=== PATIENT | female | born 1955 | race Caucasian/White ===

== ENCOUNTER 2020-08-10 18:33 | Inpatient (IN) | payer MEDICARE, MEDICAID, SELFPAY ==
[2020-08-10] VITALS (18 sets, daily range): BP systolic 133–177; BP diastolic 58–113; PULSE 66–83; RESP 13–25; TEMP 36.7; O2SAT 94–100
--- NOTE | ~2020-08-10 | XR_ITS ---
EXAMINATION: XR tibia fibula LT 2V INDICATION: Left leg pain TECHNIQUE: Two views of the left tibia and fibula are obtained on four radiographs. COMPARISON: 12/06/2017 FINDINGS: There are changes of knee arthroplasty. Diffuse soft tissue edema is present throughout the leg. No soft tissue gas is identified. There is no fracture. Mild osteoarthritis is noted at the ank le. IMPRESSION: 1. Diffuse soft tissue edema without acute osseous abnormality. Reviewed, dictated and finalized at location A.
[2020-08-10 19:24] LABS: Basophils Percent Auto 0.3 % (0.2-1.2); Eosinophils Percent Auto 0.4 % (0-4.4); Hematocrit 36.6 % (37.0-47.0); Hemoglobin 11.1 g/dL (12.0-15.0); Immature Granulocyte Absolute 0.04 K/mm3 (0.00-0.031); Immature Granulocyte Percent A 0.4 % (0-0.5); Lymphocytes Percent Auto 13.2 % (18.3-44.2); Mean Corpuscular HGB Conc 30.3 g/dl (32-36); Mean Corpuscular Hemoglobin 25.5 pg (26-34); Mean Corpuscular Volume 84.1 fl (80-100); Mean Platelet Volume 10.1 fl (7.4-10.4); Monocytes Absolute Auto 0.9 K/mm3 (0.1-0.6); Monocytes Percent Auto 7.6 % (2.6-8.5); Neutrophils Absolute Auto 8.9 K/mm3 (1.3-6.7); Neutrophils Percent Auto 78.1 % (45.5-73.1); Platelet Count Result 311 k/mm3 (150-375); Red Blood Count 4.35 M/mm3 (4.2-5.4); White Blood Count 11.4 K/mm3 (4.5-10.0)
[2020-08-10 19:42] LABS: Alanine Aminotransferase 27 U/L (4-35); Albumin Level 4.2 g/dL (3.5-5.1); Alkaline Phosphatase 122 U/L (38-126); Aspartate Amino Transferase 31 U/L (14-36); Bilirubin,Total 0.4 mg/dL (0.2-1.3); Blood Urea Nitrogen 24 mg/dL (7-17); Calcium 9.6 mg/dL (8.4-10.2); Carbon Dioxide 28 mmol/L (22-30); Chloride 101 mmol/L (98-107); Estimated CRCL calculation 83 ml/min; Estimated Glomerular Filt Rate > 60; Glucose 124 mg/dL (65-105); Potassium 3.6 mmol/L (3.4-5.0)
[2020-08-10 19:46] LABS: Anion Gap 9 mmol/L (8-16); Sodium 138 mmol/L (137-145)
[2020-08-10 20:38] LABS: Lactic Acid Reflex 1.1 mmol/L (0.7-2.1)
--- NOTE | 2020-08-10 20:41 | ED.LOWEXIN ---
HPI - Extremity Injury (Lower) General Chief Complaint: Extremity Injury, Lower Stated Complaint: cellulitus to left leg Time Seen by Provider: 08/10/20 19:34 Source: RN notes reviewed History of Present Illness HPI Narrative: Patient presents emergency department from home for left leg redness. States that since began 2 days ago with a small weeping wound that progressively is worsened. States that the area is tender to palpation denies any direct trauma or injury. Denies any pain of the ankle or knee with orange motion of both and has been able to walk on the leg. She has any fevers or chills numbness or tingling or any other symptoms states no previous evaluation Related Data Allergies Allergy/AdvReac Type Severity Reaction Status Date / Time No Known Allergies Allergy Verified 08/10/20 18:48 Review of Systems Review of Systems: Narrative: Gen.: Denies fevers or chills ENT: Denies congestion Respiratory: Denies shortness of breath or cough CV: Denies chest pain GI: Denies abdominal pain nausea, emesis or diarrhea Musculoskeletal: Denies back pain or muscle pain Neuro: Denies numbness, tingling, weakness or focal weakness Skin: See HPI Except as documented, all other systems reviewed and negative PMFSH Past Medical History Medical History (Updated 08/10/20 @ 21:36 by Vladimir Reese DO) Patient denies significant medical history Social History Social History (Updated 08/10/20 @ 20:42 by Vladimir Reese DO) Smoking status: Never smoker Exam Narrative: Exam Narrative: APPEARANCE: No acute distress, nontoxic, resting in bed EYES: EOMI HEENT: Normocephalic, atraumatic, OMM RESPIRATORY: No respiratory distress Clear to auscultation bilaterally with no rhonchi wheezing or rales. CARDIOVASCULAR: Regular rate and rhythm without murmurs rubs or gallops. ABDOMINAL: Soft, nontender, nondistended, no rebound or guarding MUSCULOSKELETAl: Moves all extremities. No clubbing, cyanosis or edema. No tenderness of the left knee or ankle with full range of motion of both NEURO: Awake and alert. Following commands, speech normal, no focal deficits SKIN:: Warm, dry. Erythema of the left anterior and lateral lower leg from mid mckenzie down to just proximal to the ankle no involvement of the ankle it is non-circumferential there is a small blistered wound with mild clear drainage PSYCHIATRIC: Normal affect/mood, Course Course Emergency Course: Discussed with Dr. Flores presentation work-up. Agrees with admission at this time Discussed with patient and family results of workup and diagnosis. Discussed need for admission. Patient and family understand and agree to current treatment plan Vital Signs Vital signs: Vital Signs Temperature 98.1 F 08/10/20 18:44 Pulse Rate 82 08/10/20 18:44 Respiratory Rate 18 08/10/20 18:44 Blood Pressure 177/62 H 08/10/20 18:44 Pulse Oximetry 98 08/10/20 18:44 Temperature 98.1 F 08/10/20 18:44 Pulse Rate 77 08/10/20 20:03 Respiratory Rate 20 08/10/20 20:03 Blood Pressure 167/68 H 08/10/20 20:03 Pulse Oximetry 96 08/10/20 20:03 MDM - Extremity Injury (Lower) Lab Data Result diagrams: 08/10/20 18:52 08/10/20 18:52 Labs: Lab Results 08/10/20 08/10/20 08/10/20 Range/Units 18:52 18:52 20:03 WBC 11.4 H (4.5-10.0) K/mm3 RBC 4.35 (4.2-5.4) M/mm3 Hgb 11.1 L (12.0-15.0) g/dL Hct 36.6 L (37.0-47.0) % MCV 84.1 (80-100) fl MCH 25.5 L (26-34) pg MCHC 30.3 L (32-36) g/dl RDW 16.0 H (11.5-14.5) % Plt Count 311 (150-375) k/mm3 MPV 10.1 (7.4-10.4) fl Immature Gran % (Auto) 0.4 (0-0.5) % Neut % (Auto) 78.1 H (45.5-73.1) % Lymph % (Auto) 13.2 L (18.3-44.2) % [place] % (Auto) 7.6 (2.6-8.5) % Eos % (Auto) 0.4 (0-4.4) % Baso % (Auto) 0.3 (0.2-1.2) % Lymph # (Auto) 1.50 (0.9-3.2) K/mm3 [place] # (Auto) 0.9 H (0.1-0.6) K/mm3 Eos # (Auto) 0.0 (0-0.3) K
--- NOTE | 2020-08-10 22:18 | PM.IMHP ---
H&P: HPI History of Present Illness Date/Time: 08/10/20 22:18 Chief complaint: Left lower extremity cellulitis Narrative: This is a 64 year old obese female with known HTN who presented to the hospital with a complaint of worsening left lower extremity redness and drainage for the past two days. The patient has a long standing history of lower extremity swelling and rash although now her LLE has a deeper red rash, tender, and draining clear fluid. She denies any recent trauma to her LE. The patient denies any previous history of MRSA that she knows of. Tonight she denies any associated symptoms of fever, nausea, vomiting, chest pain, palpitations, abdominal pain, dysuria, hematuria, diarrhea or rectal bleeding. The patient was evaluated in the ER tonight and routine labs were virtually unremarkable. The patient was started on IV antibiotics and we have been asked to admit her to the hospital for further care. No other complaints. Review of Systems Review of Systems: All systems reviewed & are unremarkable except as noted in HPI and below PMFSH Past Medical History Medical History HTN (hypertension) with goal to be determined Patient denies significant medical history Family History Family History Mother Cancer Father Cancer Social History Social History Smoking status: Never smoker Alcohol intake: never Substance use: never Spiritual care concerns: No Meds Home Medications and Allergies Home Medications Medication Instructions Recorded Confirmed Type atenolol 50 mg PO DAILY 08/11/20 08/11/20 History lisinopril-hydrochlorothiazide 1 tablet PO BID 08/11/20 08/11/20 History lorazepam 0.5 mg PO TID 08/11/20 08/11/20 History ropinirole 4 mg PO HS 08/11/20 08/11/20 History tramadol 50 mg PO Q6H PRN 08/11/20 08/11/20 History Allergies Allergy/AdvReac Type Severity Reaction Status Date / Time No Known Allergies Allergy Verified 08/10/20 18:48 Vital Signs Vital Signs - 24 hr 08/10/20 18:44 08/10/20 20:03 Temperature 36.7 C Pulse Rate 82 77 Respiratory Rate 18 20 Blood Pressure 177/62 H 167/68 H Pulse Oximetry 98 96 Exam Const: General: cooperative, no acute distress, alert, awake, ill appearing chronically, tired appearing and uncomfortable Nutritional Appearance: obese Orientation/consciousness: patient oriented x3 HENMT: Head: normal to inspection General nose exam: Normal external nose present Face and sinus: normal facial exam Mouth: Yes Normal oral and palatal mucosa present and Yes oropharynx normal Eyes: Pupils: Equal, round and reactive pupils present EOM: EOMs intact bilaterally Neck: Neck: supple and no JVD Thyroid: thyroid normal Lymphatic: lymphadenopathy not noted Resp: Effort & Inspection: normal respiratory effort Auscultation: clear to auscultation bilaterally Cardio: Rate: regular rate Rhythm: regular rhythm Heart sounds: no murmurs GI: Inspection: normal to inspection Auscultation: normal bowel sounds Skin: General skin exam: other (Deep red/violacious rash Left side worse than right++ ) Other: Skin opening of LLE draining clear fluid++ Neuro: General: patient oriented x3 Cranial nerves: Yes CN's II-XII intact bilaterally and Yes Equal, round and reactive pupils present Speech: normal speech Motor exam (neuro): 5/5 motor strength present throughout Sensory Exam: normal sensation Extrem: General: normal to inspection and no edema Psych: Mental Status: mental status grossly normal Affect: normal affect H&P: Results Labs Labs: Short CBC 08/10/20 Range/Units 18:52 WBC 11.4 H (4.5-10.0) K/mm3 Hgb 11.1 L (12.0-15.0) g/dL Hct 36.6 L (37.0-47.0) % Plt Count 311 (150-375) k/mm3 [facility] 08/10/20 18:52 Sodium 138 Potassium 3.6 Chloride 101 [place] Joe
--- NOTE | 2020-08-10 23:24 | PC.NURSE ---
pt placed on bedpan, unable to void at this time.
--- NOTE | 2020-08-10 23:49 | ADMGEN ---
This patient, Daria Pickett, was admitted to Medical Room 250-. Patient/family oriented to hospital policies and general routines including ID bracelet, bed and alarms, visiting hours, pain management, procedures, bathroom and other care routines, personal items, smoking policy, room service/diet, and visiting hours. Valuables list has been completed. Information on how to activate the Rapid Response Team has been discussed. Patient/Family are encouraged to report perceived risks to care and to ask questions if they do not understand what they are told or what they should do.
[2020-08-11 00:31] VITALS: BP 143/59; PULSE 69; RESP 16; TEMP 36.8; O2SAT 100
[2020-08-11 06:00] VITALS: BP 127/52; PULSE 68; RESP 16; TEMP 36.8; O2SAT 99
[2020-08-11 06:08] LABS: Basophils Percent Auto 0.1 % (0.2-1.2); Hematocrit 32.9 % (37.0-47.0); Hemoglobin 10.2 g/dL (12.0-15.0); Immature Granulocyte Absolute 0.07 K/mm3 (0.00-0.031); Immature Granulocyte Percent A 0.5 % (0-0.5); Lymphocytes Absolute Auto 0.99 K/mm3 (0.9-3.2); Lymphocytes Percent Auto 7.2 % (18.3-44.2); Mean Corpuscular Hemoglobin 25.4 pg (26-34); Mean Corpuscular Volume 81.8 fl (80-100); Mean Platelet Volume 10.2 fl (7.4-10.4); Monocytes Absolute Auto 0.9 K/mm3 (0.1-0.6); Monocytes Percent Auto 6.2 % (2.6-8.5); Neutrophils Absolute Auto 11.8 K/mm3 (1.3-6.7); Platelet Count Result 245 k/mm3 (150-375); Red Blood Count 4.02 M/mm3 (4.2-5.4); Red Cell Distribution Width 15.9 % (11.5-14.5); White Blood Count 13.8 K/mm3 (4.5-10.0)
[2020-08-11 06:27] LABS: Anion Gap 5 mmol/L (8-16); Blood Urea Nitrogen 16 mg/dL (7-17); Calcium 8.8 mg/dL (8.4-10.2); Carbon Dioxide 28 mmol/L (22-30); Chloride 99 mmol/L (98-107); Estimated CRCL calculation 98 ml/min; Estimated Glomerular Filt Rate > 60; Glucose 129 mg/dL (65-105); Potassium 3.8 mmol/L (3.4-5.0); Sodium 132 mmol/L (137-145)
[2020-08-11 06:45] LABS: Add Urine Microscopic? YES; Appearance Urine Clear (Clear); Bacteria Urine Trace /hpf; Bilirubin Urine Negative (Negative); Blood Urine Negative (Negative); Color Urine Yellow (Yellow); Glucose Urine UA Negative (Negative); Ketones Urine Negative (Negative); Leukocyte Esterase Ur Trace LEU/UL (Negative); Mucus Urine Rare /lpf; Nitrate Urine Negative (Negative); Protein Urine Negative (Negative); RBC Urine 0-2 /hpf (0-2); Specific Grav Ur 1.017 (1.001-1.035); Squamous Epithelial Cell Urine Occasional /hpf (Few); Urobilinogen Urine Negative mg/dL (<2.0)
[2020-08-11 10:26] VITALS: PULSE 68
[2020-08-11] MEDS: lisinopriL 20 MG TABLET PO ×2 (10:26→17:13)
[2020-08-11] MEDS: atenoloL 50 MG TABLET PO (10:26)
[2020-08-11] MEDS: LORazepam (*CRX) 0.5 MG TABLET PO (10:27)
[2020-08-11] MEDS: hydroCHLOROthiazide 12.5 MG CAPSULE PO ×2 (10:27→17:13)
[2020-08-11] MEDS: ENOXAPARIN 40 MG/0.4 ML SYRINGE SUB-Q (10:27)
--- NOTE | 2020-08-11 10:39 | PM.IMPN ---
Progress Note: A&P Assessment and Plan (1) Cellulitis of left leg: Code(s): L03.116 - Cellulitis of left lower limb Status: Acute Assessment and Plan: Continue IV Ancef and analgesics PRN. Seen by press writer. Blood cultures pending. (2) Hypertension: Qualifiers: Hypertension type: unspecified Qualified Code(s): I10 - Essential (primary) hypertension Code(s): I10 - Essential (primary) hypertension Status: Chronic Assessment and Plan: Blood pressures reviewed and are variable. Last BP on the lower end this afternoon. Continue her home lisinopril. Monitor BP and adjust treatment as needed. (3) Normocytic anemia: Code(s): D64.9 - Anemia, unspecified Status: Acute Assessment and Plan: Hgb low but stable, unsure of baseline. No evidence of acute blood loss. Monitor H/H, transfuse prn. Iron studies with AM labs. Subjective Date/time seen: 08/11/20 10:30 Interval history: Ms. Pickett is a 64yo F admitted for left lower leg cellulitis. She describes she is tired and has discomfort to left lower leg, otherwise offers no complaints. She denies any chest pain, shortness of breath, or palpitations. She has tolerated oral intake without nausea or vomiting. Review of Systems Review of Systems: Narrative: Twelve systems were reviewed with pertinent positives and negatives as per HPI. Exam Narrative: Exam Narrative: General: Female resting comfortably in semi-Spence's position in bed in no acute distress. HEENT: Normocephalic, EOMI, oral mucosa tacky. Cardiovascular: Rate and rhythm are regular. Respiratory: Lungs clear to auscultation all cast. Non-labored breathing. Tolerating room air. Abdomen: Protuberant soft, non-tender, bowel sounds present. Extremities: Peripheral pulses intact. [place] edema bilateral lower extremities below the knee. Some mild chronic discoloration to right lower extremity below the knee with skin wrinkling. Left lower extremity below the knee with pitting edema, erythema, warm and painful to touch. Small <1cm ulcer anterior left mckenzie weeping serous drainage. Neuro: No focal neurological deficits. Speech is clear. Objective Data Vital Signs Vital Signs: Last Vital Signs Temp 98.5 F 08/11/20 14:00 Pulse 99 08/11/20 14:00 Resp 20 08/11/20 14:00 BP 103/57 L 08/11/20 14:00 Pulse Ox 97 08/11/20 14:00 Intake/Output Intake/Output: Intake & Output 08/08/20 08/09/20 08/10/20 08/11/20 23:59 23:59 23:59 23:59 Intake Total 50 530 Output Total 1250 Balance 50 -720 Meds/Results Medications: Active Medications Generic Name Dose Route Start Last Admin Trade Name Freq PRN Reason Stop Dose Admin Acetaminophen 650 mg 08/11/20 07:26 Tylenol Tablet PO Q4H PRN Pain Rated 5 or Less Atenolol 50 mg 08/11/20 09:00 08/11/20 10:26 Tenormin PO 50 mg DAILY LISANDRA Administration Enoxaparin Sodium 40 mg 08/11/20 09:00 08/11/20 10:27 Lovenox SUB-Q 40 mg DAILY LISANDRA Administration Hydrochlorothiazide 12.5 mg 08/11/20 09:00 08/11/20 10:27 Hydrochlorothiazide PO 09/10/20 09:01 12.5 mg BID LISANDRA Administration Cefazolin Sodium 1 gm in 50 mls @ 100 mls/hr 08/11/20 06:00 08/11/20 06:34 Ancef 1 Gm/D5w 50 Ml Pm IVPB 100 mls/hr Q8H LISANDRA Administration Lisinopril 20 mg 08/11/20 09:00 08/11/20 10:26 Prinivil PO 09/10/20 09:01 20 mg BID LISANDRA Administration Lorazepam 0.5 mg 08/11/20 09:00 08/11/20 10:27 Ativan Tablet PO 0.5 mg TID LISANDRA Administration Ondansetron HCl 4 mg 08/11/20 07:26 Zofran Inj IV PUSH Q6H PRN Nausea And Vomiting Ropinirole HCl 4 mg 08/11/20 21:00 Requip PO HS LISANDRA Tramadol HCl 50 mg 08/11/20 07:26 Ultram PO Q6H PRN Pain Rated 6 or Greater
[2020-08-11 14:00] VITALS: BP 103/57; PULSE 99; RESP 20; TEMP 36.9; O2SAT 97
[2020-08-11 14:24] VITALS: BMI 37.4
[2020-08-11 20:32] VITALS: BP 102/40; PULSE 42; RESP 16; TEMP 37.1; O2SAT 98
--- NOTE | 2020-08-11 20:43 | ECG_ITS ---
Measurements Intervals [place] Rate: 42 P: 27 WI: 147 QRS: 9 QRSD: 84 T: 18 QT: 460 QTc: 387 Interpretive Statements SINUS BRADYCARDIA VOLTAGE CRITERIA FOR LVH ABNORMAL ECG Electronically Signed On 08-11-2020 21:09:31 CDT by Jesse Wong D.O.
[2020-08-11] MEDS: rOPINIRole HCL 1 MG TABLET 4 MG PO (21:36)
[2020-08-12] VITALS (7 sets, daily range): BP systolic 110–125; BP diastolic 41–47; PULSE 38–45; RESP 14–18; TEMP 36.4–36.8; O2SAT 95–99
[2020-08-12 06:14] LABS: Basophils Percent Auto 0.2 % (0.2-1.2); Eosinophils Percent Auto 0.4 % (0-4.4); Hematocrit 30.7 % (37.0-47.0); Hemoglobin 9.3 g/dL (12.0-15.0); Immature Granulocyte Absolute 0.04 K/mm3 (0.00-0.031); Immature Granulocyte Percent A 0.4 % (0-0.5); Lymphocytes Absolute Auto 1.26 K/mm3 (0.9-3.2); Lymphocytes Percent Auto 13.2 % (18.3-44.2); Mean Corpuscular HGB Conc 30.3 g/dl (32-36); Mean Corpuscular Hemoglobin 25.4 pg (26-34); Mean Corpuscular Volume 83.9 fl (80-100); Mean Platelet Volume 10.2 fl (7.4-10.4); Monocytes Absolute Auto 0.9 K/mm3 (0.1-0.6); Monocytes Percent Auto 9.9 % (2.6-8.5); Neutrophils Absolute Auto 7.2 K/mm3 (1.3-6.7); Neutrophils Percent Auto 75.9 % (45.5-73.1); Platelet Count Result 222 k/mm3 (150-375); Red Blood Count 3.66 M/mm3 (4.2-5.4); Red Cell Distribution Width 16.3 % (11.5-14.5); White Blood Count 9.5 K/mm3 (4.5-10.0)
[2020-08-12 06:28] LABS: Anion Gap 3 mmol/L (8-16); Blood Urea Nitrogen 20 mg/dL (7-17); Carbon Dioxide 31 mmol/L (22-30); Chloride 99 mmol/L (98-107); Estimated CRCL calculation 84 ml/min; Estimated Glomerular Filt Rate > 60; Glucose 112 mg/dL (65-105); Magnesium 2.3 mg/dL (1.6-2.3); Potassium 3.6 mmol/L (3.4-5.0); Sodium 133 mmol/L (137-145)
[2020-08-12] MEDS: ENOXAPARIN 40 MG/0.4 ML SYRINGE SUB-Q (08:30)
[2020-08-12] MEDS: lisinopriL 20 MG TABLET PO ×2 (08:51→17:55)
[2020-08-12] MEDS: hydroCHLOROthiazide 12.5 MG CAPSULE PO ×2 (08:51→17:55)
--- NOTE | 2020-08-12 11:41 | PM.IMPN ---
Progress Note: A&P Assessment and Plan (1) Bacteremia: Code(s): R78.81 - Bacteremia Status: Acute Assessment and Plan: ----- This morning her blood cultures were growing gram-negative bacilli with worsening erythema and Imipenem was added to her cefazolin. since that time, her cultures have come back pasteurella beta lactamase negative. At this time I am going to continue the imipenem until Infectious Disease sees her. I appreciate their further recommendations. I suspect this is secondary from her cellulitis. She has dogs at home but no history of and will bites. No signs of osteomyelitis on exam or x-ray (2) Cellulitis of left leg: Code(s): L03.116 - Cellulitis of left lower limb Status: Acute Assessment and Plan: ----- See above, continue therapy. (3) Hypertension: Qualifiers: Hypertension type: unspecified Qualified Code(s): I10 - Essential (primary) hypertension Code(s): I10 - Essential (primary) hypertension Status: Chronic Assessment and Plan: ----- last blood pressure 110/47. Atenolol on hold (4) Normocytic anemia: Code(s): D64.9 - Anemia, unspecified Status: Acute Assessment and Plan: ----- acute on chronic, will add anemia labs (5) Bradycardia: Code(s): R00.1 - Bradycardia, unspecified Status: Acute Assessment and Plan: ----- new starting last night. The patient had complained of dry heaving so she could have vagal down. EKG reviewed which showed sinus bradycardia. Will place on telemetry. She has no chest pain, syncope or presyncopal symptoms. She is on atenolol 50 mg which I confirmed with the pharmacy. We will place this on hold and monitor on tele. Additional Plan Time Spent With Patient Time with patient: 25 - 35 minutes Subjective Date/time seen: 08/12/20 11:41 Interval history: Pt is a 64 y/o female here for cellulitis found to have bacteremia who was seen today. patient states she feels crappy and has a decreased appetite and keeps dry heaving. She has no rigors or fevers that she knows of. She says that her heart rate has been low and she has never been told this has happened before. She denies presyncopal symptoms, syncope, chest pain, dizziness, lightheadedness or arm numbness/ tingling. She has been having regular bowel movements but feels a little constipated. she states she has a history of cellulitis but no trauma or surgery to the leg.She has 3 dogs at home and has not gotten bit by any animal. Review of Systems Review of Systems: All systems reviewed & are unremarkable except as noted in HPI and below Exam Narrative: Exam Narrative: General: Well developed well nourished patient Resting comfortably in bed in NAD HEENT: normocephalic Neck: supple Neuro: Alert and oriented x4 CV: Bradycardic Resp:CTA Abd: Soft, non distended. No pain to palpation. Positive bowel sounds Extremities: left leg with significant erythema and puncture like wound draining serous fluid. The erythema appears to have worsened and is father upper leg than the demarcated lines. pulses and sensitivity intact. Objective Data Vital Signs Vital Signs: Vital Signs - 24 hr 08/11/20 14:00 08/11/20 20:32 08/12/20 06:00 Temperature 98.5 F 98.8 F 98.3 F Pulse Rate 99 42 L 38 L Respiratory Rate 20 16 16 Blood Pressure 103/57 L 102/40 L 110/47 L Pulse Oximetry 97 98 98 Intake/Output Intake/Output: Intake & Output 08/09/20 08/10/20 08/11/20 08/12/20 23:59 23:59 23:59 23:59 Intake Total 50 1660 300 Output Total 1650 500 Balance 50 10 -200 Meds/Results Medications: Active Medications Generic Name Dose Route Start Last Admin Trade Name Jacobq PRN Reason Stop Dose Admin Acetaminophen 650 mg 08/11/20 07:26 Tylenol Tablet PO Q4H PRN Pain Rated 5 or Less Atenolol 50 mg 08/11/20 09:00 08/11/20 10:26 Tenormin PO 50
[2020-08-13] VITALS (8 sets, daily range): BP systolic 117–130; BP diastolic 36–50; PULSE 40–62; RESP 16–22; TEMP 36.3–36.7; O2SAT 95–100
[2020-08-13 06:33] LABS: Basophils Percent Auto 0.1 % (0.2-1.2); Eosinophils Absolute Auto 0.1 K/mm3 (0-0.3); Eosinophils Percent Auto 1.1 % (0-4.4); Hematocrit 31.5 % (37.0-47.0); Hemoglobin 9.7 g/dL (12.0-15.0); Immature Granulocyte Absolute 0.03 K/mm3 (0.00-0.031); Immature Granulocyte Percent A 0.4 % (0-0.5); Lymphocytes Absolute Auto 1.52 K/mm3 (0.9-3.2); Lymphocytes Percent Auto 21.7 % (18.3-44.2); Mean Corpuscular HGB Conc 30.8 g/dl (32-36); Mean Corpuscular Hemoglobin 25.3 pg (26-34); Monocytes Absolute Auto 0.6 K/mm3 (0.1-0.6); Monocytes Percent Auto 8.3 % (2.6-8.5); Neutrophils Absolute Auto 4.8 K/mm3 (1.3-6.7); Neutrophils Percent Auto 68.4 % (45.5-73.1); Platelet Count Result 268 k/mm3 (150-375); Red Blood Count 3.84 M/mm3 (4.2-5.4); Red Cell Distribution Width 15.9 % (11.5-14.5)
[2020-08-13 06:55] LABS: Alanine Aminotransferase 19 U/L (4-35); Albumin Level 3.2 g/dL (3.5-5.1); Alkaline Phosphatase 71 U/L (38-126); Anion Gap 5 mmol/L (8-16); Aspartate Amino Transferase 25 U/L (14-36); Bilirubin,Total 0.4 mg/dL (0.2-1.3); Blood Urea Nitrogen 17 mg/dL (7-17); Carbon Dioxide 30 mmol/L (22-30); Chloride 100 mmol/L (98-107); Estimated CRCL calculation 84 ml/min; Estimated Glomerular Filt Rate > 60; Glucose 122 mg/dL (65-105); Potassium 3.4 mmol/L (3.4-5.0); Sodium 135 mmol/L (137-145)
[2020-08-13 07:00] LABS: Iron 23 ug/dL (37-170)
[2020-08-13 07:02] LABS: Transferrin 243 mg/dL (206-381)
[2020-08-13 07:09] LABS: Percent Iron Saturation 6 % (20-50)
[2020-08-13 08:00] LABS: Folic Acid 14.4 ng/mL (2.76->20)
[2020-08-13] MEDS: ENOXAPARIN 40 MG/0.4 ML SYRINGE SUB-Q (08:26)
[2020-08-13] MEDS: CYANOCOBALAMIN INJ 1,000 MCG/ML VIAL 1000 MCG IM (10:02)
--- NOTE | 2020-08-13 12:08 | WPDINFPN2 ---
Progress Note: A&P Assessment and Plan (1) Bacteremia: Code(s): R78.81 - Bacteremia Status: Acute Assessment and Plan: Pasteurella bacteremia due to LLE cellulitis REC (antibiotic # 4) Amp #1, IV therapy at least 2 days more perhaps longer Subjective Date/time seen: 08/13/20 12:08 Objective Data Vital Signs Vital Signs: Vital Signs - 24 hr 08/12/20 12:36 08/12/20 14:00 08/12/20 16:00 Temperature 36.4 C Pulse Rate 44 L 43 L 42 L Respiratory Rate 14 Blood Pressure 125/44 L Pulse Oximetry 99 08/12/20 20:00 08/12/20 22:00 08/13/20 00:00 Temperature 36.6 C Pulse Rate 43 L 42 L 50 L Respiratory Rate 18 Blood Pressure 116/41 L Pulse Oximetry 97 08/13/20 04:00 08/13/20 05:57 08/13/20 08:00 Temperature 36.4 C Pulse Rate 42 L 40 L 49 L Respiratory Rate 20 Blood Pressure 122/40 L Pulse Oximetry 96 Intake/Output Intake/Output: Intake & Output 08/10/20 08/11/20 08/12/20 08/13/20 23:59 23:59 23:59 23:59 Intake Total 50 1660 1450 580 Output Total 1650 950 900 Balance 50 10 500 -320 Meds/Results Medications: Active Medications Generic Name Dose Route Start Last Admin Trade Name Freq PRN Reason Stop Dose Admin Acetaminophen 650 mg 08/11/20 07:26 Tylenol Tablet PO Q4H PRN Pain Rated 5 or Less Atenolol 50 mg 08/11/20 09:00 08/11/20 10:26 Tenormin PO 50 mg DAILY [facility] Administration Cyanocobalamin 1,000 mcg 08/14/20 09:00 Vitamin B-12 Tab PO QAM LISANDRA Enoxaparin Sodium 40 mg 08/11/20 09:00 08/13/20 08:26 Lovenox SUB-Q 40 mg DAILY LISANDRA Administration Ferrous Sulfate 324 mg 08/13/20 09:00 Ferrous Sulfate PO DAILY LISANDRA Hydrochlorothiazide 12.5 mg 08/11/20 09:00 08/13/20 10:49 Hydrochlorothiazide PO 09/10/20 09:01 Not Given BID [facility] Ampicillin Sodium 2 gm in 100 mls @ 200 mls/hr 08/13/20 18:00 Ampicillin 2 Gm/Ns 100 Ml IVPB Q6HR LISANDRA Lisinopril 20 mg 08/11/20 09:00 08/13/20 10:49 Prinivil PO 09/10/20 09:01 Not Given BID LISANDRA Lorazepam 0.5 mg 08/12/20 08:50 Ativan Tablet PO TID PRN Anxiety Ondansetron HCl 4 mg 08/11/20 07:26 Zofran Inj IV PUSH Q6H PRN Nausea And Vomiting Ropinirole HCl 4 mg 08/11/20 21:00 08/12/20 21:57 Requip PO Not Given HS LISANDRA Tramadol HCl 50 mg 08/11/20 07:26 Ultram PO Q6H PRN Pain Rated 6 or Greater Radiology Results: ITS Impressions Tibia/Fibula X-Ray 08/10/20 21:09 IMPRESSION: 1. Diffuse soft tissue edema without acute osseous abnormality. Labs Labs: Laboratory Results - last 24 hr 08/13/20 08/13/20 08/13/20 06:02 06:02 06:02 WBC 7.0 RBC 3.84 L Hgb 9.7 L Hct 31.5 L MCV 82.0 MCH 25.3 L MCHC 30.8 L RDW 15.9 H Plt Count 268 MPV 10.0 Immature Gran % (Auto) 0.4 Neut % (Auto) 68.4 Lymph % (Auto) 21.7 [place] % (Auto) 8.3 Eos % (Auto) 1.1 Baso % (Auto) 0.1 L Lymph # (Auto) 1.52 [place] # (Auto) 0.6 Eos # (Auto) 0.1 Baso # (Auto) 0.0 Abs Immat Gran (auto) 0.03 Absolute Neuts (auto) 4.8 Absolute Nucleated RBC 0.0 Nucleated RBC % 0.0 Sodium 135 L Potassium 3.4 Chloride 100 Carbon Dioxide 30 Anion Gap 5 L BUN 17 Creatinine 0.60 L Estim Creat Clear Calc 84 Estimated GFR > 60 Glucose 122 H Calcium 9.0 Iron 23 L TIBC 354 % Saturation 6 L Transferrin 243 Ferritin 42.50 Total Bilirubin 0.4 AST 25 ALT 19 Alkaline Phosphatase 71 Total Protein 6.0 L Albumin 3.2 L Vitamin B12 211.0 L Folate 14.4 TSH (Reflex) 2.870
[2020-08-13] MEDS: AMPICILLIN 2 GM/NS 100 ML 2 GM/100 ML BAG IVPB ×2 (12:41→17:02)
--- NOTE | 2020-08-13 14:36 | PM.IMPN ---
Progress Note: A&P Assessment and Plan (1) Bacteremia: Code(s): R78.81 - Bacteremia Status: Acute Assessment and Plan: ----- Pasterurella growing in both cultures 2/[address] kilgore recommends ampicillin. Will cotinue with that for now. Pt is improving at this time. Her nausea and vomiting has improved with treatment. She has dogs at home but no history of and will bites. No signs of osteomyelitis on exam or x-ray (2) Cellulitis of left leg: Code(s): L03.116 - Cellulitis of left lower limb Status: Acute Assessment and Plan: ----- See above, continue therapy. (3) Hypertension: Qualifiers: Hypertension type: unspecified Qualified Code(s): I10 - Essential (primary) hypertension Code(s): I10 - Essential (primary) hypertension Status: Chronic Assessment and Plan: ----- last blood pressure 117/36. Atenolol on hold (4) Normocytic anemia: Code(s): D64.9 - Anemia, unspecified Status: Acute Assessment and Plan: ----- acute on chronic. Low on b12 and iron. Pt states she was told she is low on iron but it hurts her stomach and doesn't want to take it. Will continue B12. (5) Bradycardia: Code(s): R00.1 - Bradycardia, unspecified Status: Acute Assessment and Plan: -----Noted the last few days. The patient had complained of dry heaving and throwing up so she could have vagal down. EKG and tele reviewed which showed sinus bradycardia. She has no chest pain, syncope or presyncopal symptoms. She is on atenolol 50 mg which I confirmed with the pharmacy. We will place this on hold and monitor on tele. Additional Plan Subjective Date/time seen: 08/13/20 14:36 Interval history: Pt is a 64 y/o female here for cellulitis found to have bacteremia who was seen today. Patient states that she is feeling better than yesterday and she is able to keep down her breakfast and her lunch. She is worried about taking her morning medications because she has been throwing up so much yesterday. She is going to try to take them once she keeps her lunch down. She had a bowel movement yesterday. She continues to have some pain and discharge on her leg. She has been told that she is iron deficient but states the iron hurts her stomach so she does not take it. Pt denies fevers, chills, constipation, diarrhea, chest pain, sob, or abdominal pain. Exam Narrative: Exam Narrative: General: Well developed well nourished patient Resting comfortably in bed in NAD HEENT: normocephalic Neck: supple Neuro: Alert and oriented x4 CV: Sinus Storm. Telemetry shows sinus bradycardia with no missed beats. Low 40 but persistently at 50 Resp:CTA Abd: Soft, non distended. No pain to palpation. Positive bowel sounds Extremities: left leg with erythema and puncture like wound draining serous fluid. The erythema appears to have improved today. Objective Data Vital Signs Vital Signs: Vital Signs - 24 hr 08/12/20 16:00 08/12/20 20:00 08/12/20 22:00 Temperature 97.9 F Pulse Rate 42 L 43 L 42 L Respiratory Rate 18 Blood Pressure 116/41 L Pulse Oximetry 97 08/13/20 00:00 08/13/20 04:00 08/13/20 05:57 Temperature 97.6 F Pulse Rate 50 L 42 L 40 L Respiratory Rate 20 Blood Pressure 122/40 L Pulse Oximetry 96 08/13/20 08:00 Temperature Pulse Rate 49 L Respiratory Rate Blood Pressure Pulse Oximetry Intake/Output Intake/Output: Intake & Output 08/10/20 08/11/20 08/12/20 08/13/20 23:59 23:59 23:59 23:59 Intake Total 50 1660 1450 680 Output Total 1650 950 900 Balance 50 10 500 -220 Meds/Results Medications: Active Medications Generic Name Dose Route Start Last Admin Trade Name Freq PRN Reason Stop Dose Admin Acetaminophen 650 mg 08/11/20 07:26 Tylenol Tablet PO Q4H PRN Pain Rated 5 or Less Atenolol 50 mg 08/11/20 09:00 08/11/20 10:26 T
--- NOTE | 2020-08-13 16:29 | CONS_ITS ---
DATE OF CONSULTATION: 08/13/2020 REASON FOR CONSULTATION: Pasteurella bacteremia. HISTORY OF PRESENT ILLNESS: A 64-year-old female who has had previous bilateral knee arthroplasties in [address] Holden. She has also had hip arthroplasties by Dr. Anton. She has had previous surgery of some kind for plantar fasciitis in the left foot. She knows of no vascular compromise. She has had about 3 months of left leg edema with weeping from the medial calf. On the day of admission, she had new onset while shopping of pain and redness in the leg from just below the knee down to the ankle. Pain is worse with weightbearing. No other aggravating symptoms. No fever, chills, or sweats. She does scratch her right leg, but denies any scratches to the left leg. She has 5 dogs at home. Denies any bites or scratches on their part. She denies previous such episodes. She has had no previous bloodstream infection. She was admitted and has been given imipenem and Ancef, which I changed yesterday to piperacillin. She has had no side effects from any antibiotics. No events here in the hospital. No surgical intervention has been required. ALLERGIES: NONE KNOWN. HABITS: Never smoked. No alcohol. PRESENT MEDICATIONS: No immunosuppressants, nor have any been given as an outpatient. PAST MEDICAL HISTORY: In addition to the above, back fusion surgery, lumbar spine, shoulder surgery, hypertension. 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 FAMILY HISTORY: Cancer. SOCIAL HISTORY: She is . Lives locally. Does not work outside the home. No family at the bedside. REVIEW OF SYSTEMS: Chronic edema, back pain. 14-point review otherwise negative. PHYSICAL EXAMINATION: GENERAL: This is a female, who appears older than her actual age. No acute distress. VITAL SIGNS: Afebrile since arrival, 49, 20, 122/40, 96% on room air. SKIN: Ecchymoses, multiple subcentimeter abrasions over both shins. Skin is warm and dry. No generalized rash. NODES: She has no axillary or cervical adenopathy. EENT: Pupils equal, round, reactive to light. Extraocular movements are normal. The oropharynx, oral mucosa normal. NECK: No meningismus, thyromegaly, masses, or asymmetry. LUNGS: Clear to auscultation and percussion. CHEST: Equal expansion. Normal AP diameter. No indwelling vascular devices. CARDIAC: Bradycardic, regular. No murmurs or gallops. Pulses are 1+ and equal. ABDOMEN: Obese, nontender. No masses. No organomegaly. EXTREMITIES: She has serum on the skin of the left mckenzie, though no open wounds. She has bright red erythema over the anterior mckenzie and just laterally. There is mild tenderness. She does have edema, but there is no other abnormal contour. No sinus tracts. No areas of necrosis. Foot has 1+ edema and no plantar open wound. LABORATORY DATA: Blood cultures 2/2 sets pasteurella. Susceptibility is pending. She has mild hyponatremia, glucose 122, otherwise chemistry panel normal. Low iron, normal TIBC. She has an albumin of 3.2. B12 is low. White count was 11.4 on arrival, 13.8 the next day, now 7, hemoglobin 9.7, platelets are 268, differential normal. Urinalysis done for unknown reasons, normal. RADIOLOGY: Tibia-fibula x-ray shows nonspecific edema. ASSESSMENT: 1. 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 This is not a skin contaminant and I doubt bacteremia of no clinical consequence. Cellulitis is the suspected source, skin trauma with prior skin colonization with the same organism, original source one of her dogs. She has no cats nor cat exposures. Other mammalian sources of the pasteurella are not suspected. Other causes of her leukocytosis are not suspected. 2. Mild hyperglycemia without
[2020-08-14] VITALS: PULSE 67
[2020-08-14] MEDS: AMPICILLIN 2 GM/NS 100 ML 2 GM/100 ML BAG IVPB ×5 (00:50→23:24)
[2020-08-14 04:00] VITALS: BP 144/53; PULSE 43; PULSE 64; RESP 20; TEMP 36.7; O2SAT 98
[2020-08-14 05:48] LABS: Basophils Percent Auto 0.3 % (0.2-1.2); Eosinophils Absolute Auto 0.1 K/mm3 (0-0.3); Hematocrit 33.5 % (37.0-47.0); Hemoglobin 10.2 g/dL (12.0-15.0); Immature Granulocyte Absolute 0.05 K/mm3 (0.00-0.031); Immature Granulocyte Percent A 0.8 % (0-0.5); Lymphocytes Absolute Auto 1.78 K/mm3 (0.9-3.2); Lymphocytes Percent Auto 27.6 % (18.3-44.2); Mean Corpuscular HGB Conc 30.4 g/dl (32-36); Mean Corpuscular Hemoglobin 25.5 pg (26-34); Mean Corpuscular Volume 83.8 fl (80-100); Mean Platelet Volume 10.1 fl (7.4-10.4); Monocytes Absolute Auto 0.8 K/mm3 (0.1-0.6); Monocytes Percent Auto 11.8 % (2.6-8.5); Neutrophils Absolute Auto 3.7 K/mm3 (1.3-6.7); Neutrophils Percent Auto 57.5 % (45.5-73.1); Platelet Count Result 286 k/mm3 (150-375); Red Cell Distribution Width 15.9 % (11.5-14.5); White Blood Count 6.5 K/mm3 (4.5-10.0)
[2020-08-14 06:09] LABS: Anion Gap 6 mmol/L (8-16); Blood Urea Nitrogen 18 mg/dL (7-17); Calcium 8.9 mg/dL (8.4-10.2); Carbon Dioxide 33 mmol/L (22-30); Chloride 101 mmol/L (98-107); Estimated CRCL calculation 84 ml/min; Estimated Glomerular Filt Rate > 60; Glucose 97 mg/dL (65-105); Sodium 140 mmol/L (137-145)
[2020-08-14 08:00] VITALS: PULSE 80
[2020-08-14] MEDS: ENOXAPARIN 40 MG/0.4 ML SYRINGE SUB-Q (09:36)
[2020-08-14] MEDS: hydroCHLOROthiazide 12.5 MG CAPSULE PO ×2 (10:35→17:34)
[2020-08-14] MEDS: lisinopriL 20 MG TABLET PO ×2 (10:35→17:34)
--- NOTE | 2020-08-14 11:44 | PM.IMPN ---
Progress Note: A&P Assessment and Plan (1) Bacteremia: Code(s): R78.81 - Bacteremia Status: Acute Assessment and Plan: ----- Pasterurella growing in both cultures 2/[address] kilgore recommends ampicillin. Will continue with that for now. Pt is improving at this time. Her nausea and vomiting has improved with treatment. She has dogs at home but no history of animal bites. No signs of osteomyelitis on exam or x-ray (2) Cellulitis of left leg: Code(s): L03.116 - Cellulitis of left lower limb Status: Acute Assessment and Plan: ----- See above, continue therapy. (3) Hypertension: Qualifiers: Hypertension type: unspecified Qualified Code(s): I10 - Essential (primary) hypertension Code(s): I10 - Essential (primary) hypertension Status: Chronic Assessment and Plan: ----- last blood pressure 144/53. Continue lisinopril and hctz. Atenolol on hold (4) Normocytic anemia: Code(s): D64.9 - Anemia, unspecified Status: Acute Assessment and Plan: ----- acute on chronic. Low on b12 and iron. Pt states she was told she is low on iron but it hurts her stomach and doesn't want to take it. Will continue B12. (5) Bradycardia: Code(s): R00.1 - Bradycardia, unspecified Status: Acute Assessment and Plan: -----Noted the last few days. The patient had complained of dry heaving and throwing up so she could have vagal down. EKG and tele reviewed which showed sinus bradycardia. She has no chest pain, syncope or presyncopal symptoms. She is on atenolol 50 mg which I confirmed with the pharmacy. This will be continued at [facility]. Additional Plan Subjective Date/time seen: 08/14/20 11:44 Interval history: Pt is a 64 y/o female here for cellulitis found to have bacteremia who was seen today with no complaints. Her nausea and vomiting have completely resolved. She still does not like to take her home medications regularly because she says she only takes them when she feels like it at home. She has no complaints and thinks she is doing much better. Pt denies nausea, vomiting, fevers, chills, constipation, diarrhea, chest pain, sob, or abdominal pain. Exam Narrative: Exam Narrative: General: Well developed well nourished patient Resting comfortably in the chair in NAD HEENT: normocephalic Neck: supple Neuro: Alert and oriented x4 CV: Sinus Storm. Telemetry shows sinus bradycardia with no missed beats. Low 40 but persistently at 50-60 Resp:CTA Abd: Soft, non distended. No pain to palpation. Positive bowel sounds Extremities: left leg with erythema much improved and within the demarcated lines. Pulses intact. Objective Data Vital Signs Vital Signs: Vital Signs - 24 hr 08/13/20 12:00 08/13/20 14:00 08/13/20 16:00 Temperature 98.1 F Pulse Rate 52 L 55 L 50 L Respiratory Rate 16 Blood Pressure 117/36 L Pulse Oximetry 95 08/13/20 20:00 08/14/20 00:00 08/14/20 04:00 Temperature 97.3 F L 98.1 F Pulse Rate 62 67 64 Respiratory Rate 22 H 20 Blood Pressure 130/50 L 144/53 H Pulse Oximetry 100 98 08/14/20 08:00 Temperature Pulse Rate 80 Respiratory Rate Blood Pressure Pulse Oximetry Intake/Output Intake/Output: Intake & Output 08/11/20 08/12/20 08/13/20 08/14/20 23:59 23:59 23:59 23:59 Intake Total 1660 1450 1780 1150 Output Total 8876 262 6628 400 Balance 10 500 480 750 Meds/Results Medications: Active Medications Generic Name Dose Route Start Last Admin Trade Name Freq PRN Reason Stop Dose Admin Acetaminophen 650 mg 08/11/20 07:26 Tylenol Tablet PO Q4H PRN Pain Rated 5 or Less Atenolol 50 mg 08/11/20 09:00 08/11/20 10:26 Tenormin PO 50 mg DAILY COUNT INCLUDES THE [facility] Administration Cyanocobalamin 1,000 mcg 08/14/20 09:00 08/14/20 09:37 Vitamin B-12 Tab PO Not Given QAM COUNT INCLUDES THE [facility] Enoxaparin Sodium 40 mg 08/11/20
[2020-08-14 14:00] VITALS: BP 142/46; PULSE 50; RESP 16; TEMP 36.1; O2SAT 99
--- NOTE | 2020-08-14 14:23 | WPDINFPN2 ---
Progress Note: A&P Assessment and Plan (1) Bacteremia: Code(s): R78.81 - Bacteremia Status: Acute Assessment and Plan: 1. Pasteurella bacteremia due to LLE cellulitis, exam modestly imptoved REC (antibiotic # 5) Amp #2, IV therapy another 1-3 days, depending on exam and crp Subjective Date/time seen: 08/14/20 14:23 Interval history: no new complaints Exam Narrative: Exam Narrative: afebrile Const: General: no acute distress Skin: General skin exam: no rashes or lesions noted Other: erythema is receding and less intense, no fluctuance Objective Data Vital Signs Vital Signs: Vital Signs - 24 hr 08/13/20 16:00 08/13/20 20:00 08/14/20 00:00 Temperature 36.3 C L Pulse Rate 50 L 62 67 Respiratory Rate 22 H Blood Pressure 130/50 L Pulse Oximetry 100 08/14/20 04:00 08/14/20 08:00 Temperature 36.7 C Pulse Rate 64 80 Respiratory Rate 20 Blood Pressure 144/53 H Pulse Oximetry 98 Intake/Output Intake/Output: Intake & Output 08/11/20 08/12/20 08/13/20 08/14/20 23:59 23:59 23:59 23:59 Intake Total 1660 1450 1780 1250 Output Total 5082 785 8795 400 Balance 10 500 480 850 Meds/Results Medications: Active Medications Generic Name Dose Route Start Last Admin Trade Name Freq PRN Reason Stop Dose Admin Acetaminophen 650 mg 08/11/20 07:26 Tylenol Tablet PO Q4H PRN Pain Rated 5 or Less Atenolol 50 mg 08/11/20 09:00 08/11/20 10:26 Tenormin PO 50 mg DAILY [facility] Administration Cyanocobalamin 1,000 mcg 08/14/20 09:00 08/14/20 09:37 Vitamin B-12 Tab PO Not Given QAM [facility] Enoxaparin Sodium 40 mg 08/11/20 09:00 08/14/20 09:36 Lovenox SUB-Q 40 mg DAILY [facility] Administration Ferrous Sulfate 324 mg 08/13/20 09:00 08/14/20 09:37 Ferrous Sulfate PO Not Given DAILY [facility] Hydrochlorothiazide 12.5 mg 08/11/20 09:00 08/14/20 10:35 Hydrochlorothiazide PO 09/10/20 09:01 12.5 mg BID LISANDRA Administration Ampicillin Sodium 2 gm in 100 mls @ 200 mls/hr 08/13/20 12:00 08/14/20 12:49 Ampicillin 2 Gm/Ns 100 Ml IVPB Infused Q6HR LISANDRA Infusion Lisinopril 20 mg 08/11/20 09:00 08/14/20 10:35 Prinivil PO 09/10/20 09:01 20 mg BID LISANDRA Administration Lorazepam 0.5 mg 08/12/20 08:50 Ativan Tablet PO TID PRN Anxiety Ondansetron HCl 4 mg 08/11/20 07:26 Zofran Inj IV PUSH Q6H PRN Nausea And Vomiting Ropinirole HCl 4 mg 08/11/20 21:00 08/13/20 21:57 Requip PO Not Given HS LISANDRA Tramadol HCl 50 mg 08/11/20 07:26 Ultram PO Q6H PRN Pain Rated 6 or Greater Radiology Results: ITS Impressions Tibia/Fibula X-Ray 08/10/20 21:09 IMPRESSION: 1. Diffuse soft tissue edema without acute osseous abnormality. Labs Labs: Laboratory Results - last 24 hr 08/14/20 08/14/20 05:19 05:19 WBC 6.5 RBC 4.00 L Hgb 10.2 L Hct 33.5 L MCV 83.8 MCH 25.5 L MCHC 30.4 L RDW 15.9 H Plt Count 286 MPV 10.1 Immature Gran % (Auto) 0.8 H Neut % (Auto) 57.5 Lymph % (Auto) 27.6 [place] % (Auto) 11.8 H Eos % (Auto) 2.0 Baso % (Auto) 0.3 Lymph # (Auto) 1.78 [place] # (Auto) 0.8 H Eos # (Auto) 0.1 Baso # (Auto) 0.0 Abs Immat Gran (auto) 0.05 H Absolute Neuts (auto) 3.7 Absolute Nucleated RBC 0.0 Nucleated RBC % 0.0 Sodium 140 Potassium 4.0 Chloride 101 Carbon Dioxide 33 H Anion Gap 6 L BUN 18 H Creatinine 0.60 L Estim Creat Clear Calc 84 Estimated GFR > 60 Glucose 97 Calcium 8.9
[2020-08-14 20:00] VITALS: PULSE 50; RESP 16; O2SAT 99
[2020-08-14 21:17] VITALS: BP 147/56; PULSE 86; RESP 16; TEMP 36.6; O2SAT 99
[2020-08-15] MEDS: AMPICILLIN 2 GM/NS 100 ML 2 GM/100 ML BAG IVPB ×2 (05:57→12:05)
[2020-08-15 06:00] VITALS: BP 150/55; PULSE 95; RESP 18; TEMP 36.4; O2SAT 100
[2020-08-15 06:05] LABS: Basophils Percent Auto 0.4 % (0.2-1.2); Eosinophils Absolute Auto 0.2 K/mm3 (0-0.3); Eosinophils Percent Auto 3.1 % (0-4.4); Hematocrit 33.3 % (37.0-47.0); Hemoglobin 10.1 g/dL (12.0-15.0); Immature Granulocyte Absolute 0.03 K/mm3 (0.00-0.031); Immature Granulocyte Percent A 0.5 % (0-0.5); Lymphocytes Absolute Auto 1.73 K/mm3 (0.9-3.2); Lymphocytes Percent Auto 31.4 % (18.3-44.2); Mean Corpuscular HGB Conc 30.3 g/dl (32-36); Mean Corpuscular Hemoglobin 25.2 pg (26-34); Mean Platelet Volume 9.5 fl (7.4-10.4); Monocytes Absolute Auto 0.7 K/mm3 (0.1-0.6); Monocytes Percent Auto 12.3 % (2.6-8.5); Neutrophils Absolute Auto 2.9 K/mm3 (1.3-6.7); Neutrophils Percent Auto 52.3 % (45.5-73.1); Platelet Count Result 288 k/mm3 (150-375); Red Blood Count 4.01 M/mm3 (4.2-5.4); Red Cell Distribution Width 15.8 % (11.5-14.5); White Blood Count 5.5 K/mm3 (4.5-10.0)
[2020-08-15 06:17] LABS: Anion Gap 3 mmol/L (8-16); Blood Urea Nitrogen 19 mg/dL (7-17); CRP 1.9 mg/dL (<1.0); Carbon Dioxide 33 mmol/L (22-30); Chloride 101 mmol/L (98-107); Estimated CRCL calculation 84 ml/min; Estimated Glomerular Filt Rate > 60; Glucose 96 mg/dL (65-105); Sodium 137 mmol/L (137-145)
[2020-08-15] MEDS: CYANOCOBALAMIN 1,000 MCG TABLET 1000 MCG PO (08:55)
[2020-08-15] MEDS: ENOXAPARIN 40 MG/0.4 ML SYRINGE SUB-Q (08:55)
[2020-08-15] MEDS: FERROUS SULFATE 324 MG TABLET PO (08:55)
[2020-08-15] MEDS: hydroCHLOROthiazide 12.5 MG CAPSULE PO ×2 (08:56→17:47)
[2020-08-15] MEDS: lisinopriL 20 MG TABLET PO ×2 (08:56→17:47)
--- NOTE | 2020-08-15 12:36 | PM.IMPN ---
Progress Note: A&P Assessment and Plan (1) Bacteremia: Code(s): R78.81 - Bacteremia Status: Acute Assessment and Plan: ----- Pasterurella growing in both cultures 2/[address] kilgore recommends ampicillin IV. Will continue with that for now. Likely home tomorrow. Pt is improving. (2) Cellulitis of left leg: Code(s): L03.116 - Cellulitis of left lower limb Status: Acute Assessment and Plan: ----- Much improved. See above, continue therapy. (3) Hypertension: Qualifiers: Hypertension type: unspecified Qualified Code(s): I10 - Essential (primary) hypertension Code(s): I10 - Essential (primary) hypertension Status: Chronic Assessment and Plan: ----- last blood pressure 150/55. Continue lisinopril and hctz. Atenolol on hold, will discntinue at d/c (4) Normocytic anemia: Code(s): D64.9 - Anemia, unspecified Status: Acute Assessment and Plan: ----- acute on chronic. Low on b12 and iron. Pt states she was told she is low on iron but it hurts her stomach and doesn't want to take it. Will continue B12. (5) Bradycardia: Code(s): R00.1 - Bradycardia, unspecified Status: Acute Assessment and Plan: -----Noted the last few days. The patient had complained of dry heaving and throwing up so she could have vagal down. EKG and tele reviewed which showed sinus bradycardia. She has no chest pain, syncope or presyncopal symptoms. She is on atenolol 50 mg which I confirmed with the pharmacy. This will be discontinued at [facility]. Additional Plan Subjective Date/time seen: 08/15/20 12:36 Interval history: Pt is a 64 y/o female here for cellulitis found to have bacteremia who was seen today with no complaints. She had some vomiting with her pills this morning which she says is normal from time to time. She has no feelings of the pills getting stuck, it just makes her stomach hurt when she takes all of them at the same time. She still does not like to take her home medications regularly because she says she only takes them when she feels like it at home. She has no complaints and thinks she is doing much better. Pt denies nausea, vomiting, fevers, chills, constipation, diarrhea, chest pain, sob, or abdominal pain. Exam Narrative: Exam Narrative: General: Well developed well nourished patient Resting comfortably in the chair in NAD HEENT: normocephalic Neck: supple Neuro: Alert and oriented x4 CV: Sinus Storm. Resp:CTA Abd: Soft, non distended. No pain to palpation. Positive bowel sounds Extremities: left leg with erythema much improved and within the demarcated lines. Pulses intact. Objective Data Vital Signs Vital Signs: Vital Signs - 24 hr 08/14/20 14:00 08/14/20 20:00 08/14/20 21:17 Temperature 97.0 F L 97.8 F Pulse Rate 50 L 50 L 86 Respiratory Rate 16 16 16 Blood Pressure 142/46 H 147/56 H Pulse Oximetry 99 99 99 08/15/20 06:00 Temperature 97.6 F Pulse Rate 95 Respiratory Rate 18 Blood Pressure 150/55 H Pulse Oximetry 100 Intake/Output Intake/Output: Intake & Output 08/12/20 08/13/20 08/14/20 08/15/20 23:59 23:59 23:59 23:59 Intake Total 1450 1780 2910 1270 Output Total 950 1300 1600 950 Balance 383 066 9519 320 Meds/Results Medications: Active Medications Generic Name Dose Route Start Last Admin Trade Name Freq PRN Reason Stop Dose Admin Acetaminophen 650 mg 08/11/20 07:26 Tylenol Tablet PO Q4H PRN Pain Rated 5 or Less Atenolol 50 mg 08/11/20 09:00 08/11/20 10:26 Tenormin PO 50 mg DAILY [facility] Administration Cyanocobalamin 1,000 mcg 08/14/20 09:00 08/15/20 08:55 Vitamin B-12 Tab PO 1,000 mcg QAM [facility]A Administration Enoxaparin Sodium 40 mg 08/11/20 09:00 08/15/20 08:55 Lovenox SUB-Q 40 mg DAILY [facility] Administration Ferrous Sulfate 324 mg 08/13/20 09:00 08/15/20 08:55 Ferrous Sulf
[2020-08-15 14:00] VITALS: BP 139/53; PULSE 54; RESP 18; TEMP 36.3; O2SAT 99
--- NOTE | 2020-08-15 15:24 | WPDINFPN2 ---
Progress Note: A&P Assessment and Plan (1) Bacteremia: Code(s): R78.81 - Bacteremia Status: Acute Assessment and Plan: 1. Pasteurella bacteremia due to LLE cellulitis, exam and CRP show improvement REC (antibiotic # 6 / ) Amp #3, change to high dose oral x 15 days. Ok discharge. No sign of osteomyelitis/endocarditis/pneumonia. No surgical intervention seems necessary. Call if further Qs, thanks Subjective Date/time seen: 08/15/20 15:24 Interval history: no new complaints Exam Narrative: Exam Narrative: afebrile Const: General: no acute distress Eyes: General: appearance normal, both eyes and all related structures Resp: Effort & Inspection: normal respiratory effort Auscultation: clear to auscultation bilaterally Cardio: Rate: regular rate Rhythm: regular rhythm Heart sounds: no murmurs GI: Inspection: non-distended GI Palp: Yes Soft to palpation and No Tenderness to palpation present (GI) Skin: Other: erythema fading over LLE, bilateral stasis erythema also present. No fluctuance. Objective Data Vital Signs Vital Signs: Vital Signs - 24 hr 08/14/20 20:00 08/14/20 21:17 08/15/20 06:00 Temperature 36.6 C 36.4 C Pulse Rate 50 L 86 95 Respiratory Rate 16 16 18 Blood Pressure 147/56 H 150/55 H Pulse Oximetry 99 99 100 08/15/20 14:00 Temperature 36.3 C L Pulse Rate 54 L Respiratory Rate 18 Blood Pressure 139/53 L Pulse Oximetry 99 Intake/Output Intake/Output: Intake & Output 08/12/20 08/13/20 08/14/20 08/15/20 23:59 23:59 23:59 23:59 Intake Total 1450 1780 2910 1750 Output Total 950 1300 1600 950 Balance 660 403 6870 800 Meds/Results Medications: Active Medications Generic Name Dose Route Start Last Admin Trade Name Freq PRN Reason Stop Dose Admin Acetaminophen 650 mg 08/11/20 07:26 Tylenol Tablet PO Q4H PRN Pain Rated 5 or Less Atenolol 50 mg 08/11/20 09:00 08/11/20 10:26 Tenormin PO 50 mg DAILY [facility]AN[facility]A Administration Cyanocobalamin 1,000 mcg 08/14/20 09:00 08/15/20 08:55 Vitamin B-12 Tab PO 1,000 mcg QAM LISANDRA Administration Enoxaparin Sodium 40 mg 08/11/20 09:00 08/15/20 08:55 Lovenox SUB-Q 40 mg DAILY [facility]AN[facility]A Administration Ferrous Sulfate 324 mg 08/13/20 09:00 08/15/20 08:55 Ferrous Sulfate PO 324 mg DAILY [facility] Administration Hydrochlorothiazide 12.5 mg 08/11/20 09:00 08/15/20 08:56 Hydrochlorothiazide PO 09/10/20 09:01 12.5 mg BID LISANDRA Administration Ampicillin Sodium 2 gm in 100 mls @ 200 mls/hr 08/13/20 12:00 08/15/20 12:05 Ampicillin 2 Gm/Ns 100 Ml IVPB 100 mls/hr Q6HR [facility]ISANDRA Administration Lisinopril 20 mg 08/11/20 09:00 08/15/20 08:56 Prinivil PO 09/10/20 09:01 20 mg BID LISANDRA Administration Lorazepam 0.5 mg 08/12/20 08:50 Ativan Tablet PO TID PRN Anxiety Ondansetron HCl 4 mg 08/11/20 07:26 Zofran Inj IV PUSH Q6H PRN Nausea And Vomiting Ropinirole HCl 4 mg 08/11/20 21:00 08/14/20 20:05 Requip PO Not Given HS [facility] Tramadol HCl 50 mg 08/11/20 07:26 Ultram PO Q6H PRN Pain Rated 6 or Greater Radiology Results: ITS Impressions Tibia/Fibula X-Ray 08/10/20 21:09 IMPRESSION: 1. Diffuse soft tissue edema without acute osseous abnormality. Labs Labs: Laboratory Results - last 24 hr 08/15/20 08/15/20 05:23 05:23 WBC 5.5 RBC 4.01 L Hgb 10.1 L Hct 33.3 L MCV 83.0 MCH 25.2 L MCHC 30.3 L RDW 15.8 H Plt Count 288 MPV 9.5 Immature Gran % (Auto) 0.5 Neut % (Auto) 52.3 Lymph % (Auto) 31.4 [place] % (Auto) 12.3 H Eos % (Auto) 3.1 Baso % (Auto) 0.4 Lymph # (Auto) 1.73 [place] # (Auto) 0.7 H Eos # (Auto) 0.2 Baso # (Auto) 0.0 Abs Immat Gran (auto) 0.03 Absolute Neuts (auto) 2.9 Absolute Nucleated RBC 0.0 Nucleated RBC % 0.0 Sodium 137 Potassium 4.0 Chloride 101 Carbon Dioxide 33 H Anion Gap 3 L BUN 19 H Creatinine 0.60
[2020-08-15] MEDS: AMPICILLIN TRIHYDRATE 500 MG CAPSULE 1000 MG PO ×2 (17:47→23:50)
[2020-08-15 22:00] VITALS: BP 153/55; PULSE 64; RESP 18; TEMP 36.7; O2SAT 98
[2020-08-16 06:00] VITALS: BP 138/58; PULSE 60; RESP 16; TEMP 36.5; O2SAT 99
[2020-08-16] MEDS: AMPICILLIN TRIHYDRATE 500 MG CAPSULE 1000 MG PO ×2 (06:03→11:48)
--- NOTE | 2020-08-16 09:55 | PM.DS ---
DS: Admitting Diagnosis Admitting Diagnosis Admitting Diagnosis: Left lower extremity cellulitis DS: Discharge Diagnosis Discharge Diagnosis (1) Bacteremia: Code(s): R78.81 - Bacteremia Status: Acute Assessment and Plan: ----- Pasterurella growing in both cultures 2/2 to cellulitis. Pt received ampicillin IV and was transitioned to oral 1000mg q6 x 15 days. She is to follow up with her pcp in 1 week to ensure the area is healing. (2) Cellulitis of left leg: Code(s): L03.116 - Cellulitis of left lower limb Status: Acute Assessment and Plan: ----- Much improved. See above, continue therapy. (3) Hypertension: Qualifiers: Hypertension type: unspecified Qualified Code(s): I10 - Essential (primary) hypertension Code(s): I10 - Essential (primary) hypertension Status: Chronic Assessment and Plan: ----- last blood pressure 138/58. Continue lisinopril and hctz. Atenolol d/c at discharge d/t bradycardia. (4) Normocytic anemia: Code(s): D64.9 - Anemia, unspecified Status: Acute Assessment and Plan: ----- acute on chronic. Low on b12 and iron. Pt states she was told she is low on iron but it hurts her stomach and doesn't want to take it. Discharged on both b12 and iron. (5) Bradycardia: Code(s): R00.1 - Bradycardia, unspecified Status: Acute Assessment and Plan: -----Noted the last few days. The patient had complained of dry heaving and throwing up so she could have vagal down. EKG and tele reviewed which showed sinus bradycardia. She has no chest pain, syncope or presyncopal symptoms. She is on atenolol 50 mg which I confirmed with the pharmacy. This was discontinued at [facility]. DS: Summary Hospital Course Reason for hospitalization: cellulitis with bacteremia Hospital Course: Pt is a 64 y/o female who presented to the ED for cellulitis found to have bacteremia. Pt received IV abx x 6 days and was transitioned to oral. The day of discharge the pts erythema had resolved and she was feeling back to baseline. She has plans to follow up with pcp in 1-2 weeks. Please see above for further details. Day of discharge pt was back to baseline and was educated on the worrisome signs and symptoms to come back to the ER for and was discharged in stable condition. Status at Discharge Overall status at discharge: patient is back to baseline Time Spent with Patient Time attestation: Total time spent providing and/or coordinating discharge services:36 min Time spent: Greater than 30 minutes Exam Narrative: Exam Narrative: General: Well developed well nourished patient Resting comfortably in the chair in NAD HEENT: normocephalic Neck: supple Neuro: Alert and oriented x4 CV: Sinus Storm. Resp:CTA Abd: Soft, non distended. No pain to palpation. Positive bowel sounds Extremities: left leg with erythema mostly resolved. Pulses intact. Discharge Plan Discharge Attending physician on discharge: Chelsea Irene Discharging Clinician: Hilaria Hernandez Patient Disposition: Home, Self-Care Activity: as tolerated Diet: regular Discharge Instructions: -Please note your medications have changed. Take all of your antibiotics even if you start to feel better. If you have more than 5 liquid bowel movements a day, call your primary care physician - follow-up with your primary care physician in 1-2 weeks about this stay - you have been prescribed iron, this will make your bowel movements dark, this is normal. - Worrisome signs and symptoms to come back to emergency room for: worsening redness on your leg, fevers 100.4 or greater, chest pain, shortness of breath, progressive significant weakness, or any other worrisome symptoms Patient Instructions: Antibiotic Form, Cellulitis (DC) Stand Alone Forms: General Discharge Information Follow-up/Referrals: Santhosh,Arnol Gaffney
== END 2020-08-16 12:40 | disposition home or self-care (01) | DRG 603 ==
LOC: ANHED 21:36 → ANH2MED 22:00
PROVIDERS: Family Medicine; Physician Assistant; Admitting Provider Family Medicine; Emergency Provider Emergency Medicine; PCP Family Medicine; Visit Provider Physician Assistant
DX: L03.116 Cellulitis of left lower limb (principal); R78.81 Bacteremia; I10 Essential (primary) hypertension; D64.9 Anemia, unspecified; Z23 Encounter for immunization
CPT/HCPCS: 36415; 73590; 80048; 80053; 81001; 82607; 82728; 82746; 83540; 83550; 83605; 83735; 84443; 84466; 85025; 86140; 87040; 87077; 90471; 90653; 93005; 96365; 96366; 96372; 97110; 97116; 97162; 97165; 97535; 99285; A9270; G0008; G0378; J0290; J0690; J0743; J1650; J2543; J3420

== ENCOUNTER 2020-09-09 18:29 | Inpatient (IN) | payer MEDICARE, MEDICAID, SELFPAY ==
[2020-09-09 18:31] VITALS: BP 140/86; PULSE 60; RESP 18; TEMP 36.1; O2SAT 99
[2020-09-09 18:43] LABS: Basophils Percent Auto 0.2 % (0.2-1.2); Eosinophils Absolute Auto 0.1 K/mm3 (0-0.3); Eosinophils Percent Auto 0.8 % (0-4.4); Hematocrit 39.2 % (37.0-47.0); Hemoglobin 11.7 g/dL (12.0-15.0); Immature Granulocyte Absolute 0.04 K/mm3 (0.00-0.031); Immature Granulocyte Percent A 0.4 % (0-0.5); Lymphocytes Absolute Auto 1.19 K/mm3 (0.9-3.2); Lymphocytes Percent Auto 11.7 % (18.3-44.2); Mean Corpuscular HGB Conc 29.8 g/dl (32-36); Mean Corpuscular Hemoglobin 25.5 pg (26-34); Mean Corpuscular Volume 85.4 fl (80-100); Mean Platelet Volume 9.8 fl (7.4-10.4); Monocytes Absolute Auto 0.7 K/mm3 (0.1-0.6); Neutrophils Absolute Auto 8.1 K/mm3 (1.3-6.7); Neutrophils Percent Auto 79.9 % (45.5-73.1); Platelet Count Result 265 k/mm3 (150-375); Red Blood Count 4.59 M/mm3 (4.2-5.4); Red Cell Distribution Width 16.4 % (11.5-14.5); White Blood Count 10.2 K/mm3 (4.5-10.0)
[2020-09-09 18:55] LABS: Alanine Aminotransferase 37 U/L (4-35); Alkaline Phosphatase 123 U/L (38-126); Anion Gap 7 mmol/L (8-16); Aspartate Amino Transferase 34 U/L (14-36); Bilirubin,Total 0.4 mg/dL (0.2-1.3); Blood Urea Nitrogen 22 mg/dL (7-17); Calcium 9.4 mg/dL (8.4-10.2); Carbon Dioxide 27 mmol/L (22-30); Chloride 102 mmol/L (98-107); Estimated CRCL calculation 98 ml/min; Estimated Glomerular Filt Rate > 60; Glucose 116 mg/dL (65-105); Potassium 3.9 mmol/L (3.4-5.0); Sodium 136 mmol/L (137-145)
--- NOTE | 2020-09-09 20:29 | ED.EXTPRO ---
HPI - Extremity Problem General Chief complaint: Skin/Abscess/Foreign Body Stated complaint: left leg redness Time Seen by Provider: 09/09/20 20:13 Source: patient History of Present Illness HPI Narrative: 64-year-old female presents to emergency department for left leg swelling and erythema for the past week. Patient states she was treated earlier this month with IV antibiotics for a similar infection. Patient states she has only tried triple antibiotic ointment for this. She states the pain, erythema, and swelling have progressively worsened over the past week. No abdominal pain. No chest pain or shortness of breath. No fever or chills. Related Data Home Medications Medication Instructions Recorded Confirmed lisinopril-hydrochlorothiazide 1 tablet PO BID 08/11/20 09/10/20 lorazepam 0.5 mg PO TID PRN 08/11/20 09/10/20 ropinirole 4 mg PO HS PRN 08/11/20 09/10/20 tramadol 50 mg PO Q6H PRN 08/11/20 09/10/20 atenolol 50 mg PO DAILY 09/10/20 09/10/20 cyclobenzaprine 10 mg PO HS PRN 09/10/20 09/10/20 diazepam 2 mg PO Q8H PRN 09/10/20 09/10/20 Allergies Allergy/AdvReac Type Severity Reaction Status Date / Time No Known Allergies Allergy Verified 09/10/20 00:33 Review of Systems Review of Systems: Narrative: CONSTITUTIONAL: Denies fever, chills, or sweats. EYES: Denies visual changes, redness, or discharge. ENT: Denies rhinorrhea, congestion, sore throat, or otalgia. CARDIOVASCULAR: Denies chest pain, palpitations, or edema. RESPIRATORY: Denies cough or dyspnea. GASTROINTESTINAL: Denies abdominal pain, nausea, vomiting, or diarrhea. GENITOURINARY: Denies dysuria or hematuria. SKIN: Denies rash or itching. MUSCULOSKELETAL: Denies back pain, joint pain, or myalgia. NEUROLOGIC: Denies headache, numbness, dizziness, or weakness. PSYCHIATRIC: Denies anxiety or depression. All systems reviewed & are unremarkable except as noted in HPI and below (ROS) [facility] Past Medical History Medical History (Updated 09/10/20 @ 16:15 by Hansel Bates MD) HTN (hypertension) with goal to be determined Patient denies significant medical history Family History Family History Mother Cancer Father Cancer Social History Social History Smoking status: Never smoker Alcohol intake: never Substance use: never Gender identity (if verbalized by the patient): Female Spiritual care concerns: No Exam Narrative: Exam Narrative: GENERAL: Well-appearing, well-nourished, and in no acute distress. HEAD: Normocephalic, atraumatic. EYES: PERRLA and EOMI. ENT: Nares clear, no rhinorrhea or epistaxis. Mucous membranes moist. NECK: Supple. CHEST: Clear to auscultation. No respiratory distress. HEART: Regular rate and rhythm. No murmur heard. Normal peripheral pulses. ABDOMEN: Soft, nontender, nondistended, normal active bowel sounds. EXTREMITIES: Normal range of motion. No edema. SKIN: Left lateral mckenzie wound with surrounding erythema and swelling that goes distally to the left lateral foot. NEURO: No focal deficits. Alert and oriented x3. PSYCH: Normal mood and affect. Course Consultations Consultation #1: [id number] - discussed case with Dr. Flores, accepts admission Vital Signs Vital signs: Vital Signs Temperature 36.1 C L 09/09/20 18:31 Pulse Rate 60 09/09/20 18:31 Respiratory Rate 18 09/09/20 18:31 Blood Pressure 140/86 09/09/20 18:31 Pulse Oximetry 99 09/09/20 18:31 Temperature 36.6 C 09/14/20 05:04 Pulse Rate 55 L 09/14/20 09:11 Respiratory Rate 16 09/14/20 05:04 Blood Pressure 117/51 L 09/14/20 08:33 Pulse Oximetry 97 09/14/20 08:33 MDM - Extremity (Nontraumatic) Medical Records Attestation: I reviewed the patient's medical records. Lab Data Attestation: I reviewed the patient's lab results. Result diagrams: 09/14/20 05:20 09/14/20 05:20 Labs: Lab Resu
[2020-09-09] MEDS: KETOROLAC 15 MG/ML VIAL (*BKC) IV PUSH (21:03)
--- NOTE | 2020-09-09 21:32 | PC.NURSE ---
Awaiting medications from pharmacy.
[2020-09-09 21:49] VITALS: BP 162/67; PULSE 58; RESP 16; O2SAT 98
--- NOTE | 2020-09-09 22:17 | PM.IMHP ---
H&P: HPI History of Present Illness Date/Time: 09/09/20 22:17 Chief complaint: left leg cellulitis Narrative: This is a 64 year old obese female with known HTN and known to me from a recent admission to the hospital for cellulitis who presented to the hospital with a complaint of increased LLE redness, swelling, and drainage from her wound over the past week. She reports that about 2 weeks ago she did hit her leg right on her wound on a storage bin and since then it started to get red and swollen again. She has had a serosanguineous drainage from her wound. Tonight she denies any associated symptoms of fever, nausea, vomiting, chest pain, palpitations, abdominal pain, dysuria, hematuria, diarrhea or rectal bleeding. The patient was evaluated in the ER tonight and routine labs demonstrated mild leukocytosis. The patient was started on IV antibiotics and we have been asked to admit her to the hospital for further care. No other complaints. Review of Systems Review of Systems: All systems reviewed & are unremarkable except as noted in HPI and below PMFSH Past Medical History Medical History (Updated 09/10/20 @ 06:32 by Tyler Flores MD) HTN (hypertension) with goal to be determined Patient denies significant medical history Family History Family History Mother Cancer Father Cancer Social History Social History Smoking status: Never smoker Alcohol intake: never Substance use: never Gender identity (if verbalized by the patient): Female Spiritual care concerns: No Comments past surgical history is reviewed and noncontributory. Meds Home Medications and Allergies Home Medications Medication Instructions Recorded Confirmed Type lisinopril-hydrochlorothiazide 1 tablet PO BID 08/11/20 09/10/20 History lorazepam 0.5 mg PO TID PRN 08/11/20 09/10/20 History ropinirole 4 mg PO HS PRN 08/11/20 09/10/20 History tramadol 50 mg PO Q6H PRN 08/11/20 09/10/20 History ferrous sulfate 324 mg PO DAILY #30 tablet 08/16/20 09/10/20 Rx atenolol 50 mg PO DAILY 09/10/20 09/10/20 History cyclobenzaprine 10 mg PO HS PRN 09/10/20 09/10/20 History diazepam 2 mg PO Q8H PRN 09/10/20 09/10/20 History Allergies Allergy/AdvReac Type Severity Reaction Status Date / Time No Known Allergies Allergy Verified 09/10/20 00:33 Vital Signs Vital Signs - 24 hr 09/09/20 18:31 09/09/20 21:49 Temperature 36.1 C L Pulse Rate 60 58 L Respiratory Rate 18 16 Blood Pressure 140/86 162/67 H Pulse Oximetry 99 98 Exam Const: General: cooperative, alert and awake Nutritional Appearance: obese morbidly obese Orientation/consciousness: patient oriented x3 HENMT: Head: normal to inspection General nose exam: Normal external nose present Face and sinus: normal facial exam Mouth: Yes Normal oral and palatal mucosa present and Yes oropharynx normal Eyes: Pupils: Equal, round and reactive pupils present EOM: EOMs intact bilaterally Neck: Neck: supple and no JVD Thyroid: thyroid normal Lymphatic: lymphadenopathy not noted Resp: Effort & Inspection: normal respiratory effort Auscultation: clear to auscultation bilaterally Cardio: Rate: regular rate Rhythm: regular rhythm Heart sounds: no murmurs GI: Inspection: normal to inspection Auscultation: normal bowel sounds Skin: General skin exam: erythema (LLE++ ) Lesions: other (Open wound on LLE 3 x 4 cm draining purulent fluid++ ) Neuro: General: patient oriented x3 Cranial nerves: Yes CN's II-XII intact bilaterally and Yes Equal, round and reactive pupils present Speech: normal speech Motor exam (neuro): 5/5 motor strength present throughout Sensory Exam: normal sensation Extrem: General: normal to inspection and edema (LLE++ ) Psych: Mental Status: mental status grossly normal Affect: normal affect H&P: Results Labs Labs: Short CBC 09/09/20 Ra
--- NOTE | 2020-09-09 22:28 | ECG_ITS ---
Measurements Intervals [place] Rate: 50 P: 64 [place]: 139 QRS: -2 QRSD: 88 T: 10 QT: 445 QTc: 408 Interpretive Statements SINUS BRADYCARDIA VOLTAGE CRITERIA FOR LVH BASELINE ARTIFACT- V1-V3, V5 BORDERLINE ECG Electronically Signed On 09-10-2020 6:53:02 CDT by Jesse Wong D.O.
[2020-09-10] VITALS (9 sets, daily range): BP systolic 90–1185; BP diastolic 38–64; PULSE 40–66; RESP 18–22; TEMP 36.1–36.9; O2SAT 95–99; BMI 31.7
--- NOTE | 2020-09-10 00:17 | ADMGEN ---
This patient, Daria Pickett, was admitted to 2 Medical Room 240-. Patient/family oriented to hospital policies and general routines including ID bracelet, bed and alarms, visiting hours, pain management, procedures, bathroom and other care routines, personal items, smoking policy, room service/diet, and visiting hours. Information on how to activate the Rapid Response Team has been discussed. Patient/Family are encouraged to report perceived risks to care and to ask questions if they do not understand what they are told or what they should do.
[2020-09-10 05:55] LABS: Basophils Percent Auto 0.1 % (0.2-1.2); Eosinophils Percent Auto 0.2 % (0-4.4); Hematocrit 32.8 % (37.0-47.0); Immature Granulocyte Absolute 0.04 K/mm3 (0.00-0.031); Immature Granulocyte Percent A 0.5 % (0-0.5); Lymphocytes Absolute Auto 0.98 K/mm3 (0.9-3.2); Lymphocytes Percent Auto 12.1 % (18.3-44.2); Mean Corpuscular HGB Conc 30.5 g/dl (32-36); Mean Corpuscular Hemoglobin 25.7 pg (26-34); Mean Corpuscular Volume 84.3 fl (80-100); Mean Platelet Volume 9.8 fl (7.4-10.4); Monocytes Absolute Auto 0.7 K/mm3 (0.1-0.6); Neutrophils Absolute Auto 6.3 K/mm3 (1.3-6.7); Neutrophils Percent Auto 78.1 % (45.5-73.1); Platelet Count Result 216 k/mm3 (150-375); Red Blood Count 3.89 M/mm3 (4.2-5.4); Red Cell Distribution Width 16.3 % (11.5-14.5); White Blood Count 8.1 K/mm3 (4.5-10.0)
[2020-09-10 06:04] LABS: Anion Gap 5 mmol/L (8-16); Blood Urea Nitrogen 19 mg/dL (7-17); Calcium 8.6 mg/dL (8.4-10.2); Carbon Dioxide 28 mmol/L (22-30); Chloride 106 mmol/L (98-107); Estimated CRCL calculation 98 ml/min; Estimated Glomerular Filt Rate > 60; Glucose 133 mg/dL (65-105); Potassium 4.2 mmol/L (3.4-5.0); Sodium 139 mmol/L (137-145)
[2020-09-10] MEDS: ENOXAPARIN 40 MG/0.4 ML SYRINGE SUB-Q (08:29)
[2020-09-10] MEDS: FERROUS SULFATE 324 MG TABLET PO (09:09)
[2020-09-10] MEDS: atenoloL 50 MG TABLET PO (09:10)
[2020-09-10] MEDS: hydroCHLOROthiazide 12.5 MG CAPSULE PO (09:10)
[2020-09-10] MEDS: lisinopriL 20 MG TABLET PO (09:10)
[2020-09-10] MEDS: COLLAGENASE OINT 30 GM TUBE 1 APPLIC TOPICAL (10:10)
--- NOTE | 2020-09-10 12:30 | PM.IMPN ---
Progress Note: A&P Assessment and Plan (1) Cellulitis of left leg: Code(s): L03.116 - Cellulitis of left lower limb Status: Acute Assessment and Plan: Admit to med-surg. continue IV Vancomycin, blood culture pending. 09/10/20 12:30 Patient is 64-year-old female with history of hypertension was recently discharged hospital after see was treated left lower extremity cellulitis patient presents to emergency department with 2 week history worsening redness swelling and pain. patient states but 2 weeks ago she ran into storage bin with her left lower leg since then her symptoms are getting progressively worse, and there is serosanguineous drainage, she denies any fever or chills she denies any chest pain shortness of breath palpitation, from emergency depart patient was started on vancomycin, wound and blood cultures will not collected in the ER, will order wound and blood culture though patient is already started on vancomycin, patient was seen by wound team and wound is currently dressed. patient will be seen by general surgery team and further recommendation to follow (2) Infected wound: Code(s): T14.8XXA - Other injury of unspecified body region, initial encounter; L08.9 - Local infection of the skin and subcutaneous tissue, unspecified Status: Chronic Assessment and Plan: continue IV antibiotics, General surgery consult in am. (3) Hypertension: Qualifiers: Hypertension type: unspecified Qualified Code(s): I10 - Essential (primary) hypertension Code(s): I10 - Essential (primary) hypertension Status: Chronic Assessment and Plan: Monitor blood pressure. Continue antihypertensives. Additional Plan The patient will likely need at least 2 nights of inpatient medical therapy for her cellulitis. Date of service was 09/09/2020 at 22:00 hrs. Subjective Date/time seen: 09/10/20 12:30 Patient is 64-year-old female with history of hypertension was recently discharged hospital after see was treated left lower extremity cellulitis patient presents to emergency department with 2 week history worsening redness swelling and pain. patient states but 2 weeks ago she ran into storage bin with her left lower leg since then her symptoms are getting progressively worse, and there is serosanguineous drainage, she denies any fever or chills she denies any chest pain shortness of breath palpitation, from emergency depart patient was started on vancomycin, wound and blood cultures will not collected in the ER, will order wound and blood culture though patient is already started on vancomycin, patient was seen by wound team and wound is currently dressed. patient will be seen by general surgery team and further recommendation to follow Review of Systems Review of Systems: All systems reviewed & are unremarkable except as noted in HPI and below Exam Narrative: Exam Narrative: Patient is comfortable, NAD HEENT: eyes are clear and none icteric LUNGS:CTA HEART: RR S1S2 ABD: BS+, Soft and nontender Lower extremities: no edema SKIN: nonjaundiced MS: left lower extremity in wound dressing Neuro: grossly intact. Objective Data Vital Signs Vital Signs: Vital Signs - 24 hr 09/09/20 18:31 09/09/20 21:49 09/10/20 00:15 Temperature 97.0 F L 97 F L Pulse Rate 60 58 L 54 L Respiratory Rate 18 16 22 H Blood Pressure 140/86 162/67 H 1185/64 H Pulse Oximetry 99 98 98 09/10/20 06:00 09/10/20 08:33 09/10/20 09:10 Temperature 97.4 F L Pulse Rate 56 L 66 66 Respiratory Rate 22 H 20 Blood Pressure 135/54 L Pulse Oximetry 98 98 09/10/20 10:30 Temperature 97.6 F Pulse Rate 42 L Respiratory Rate 18 Blood Pressure 142/50 H Pulse Oximetry 98 Intake/Output Intake/Output: Intake & Output 09/07/20 09/08/20 09/09/20 09/10/20 23:59 23:59 23:59 23:59 Intake Total 300 1430 Output Total 500 Balance 300 930 Meds/Results Medications: Active Medicati
--- NOTE | 2020-09-10 14:44 | PC.NURSE ---
Dr Irene aware of low blood pressure and heart rate. No new orders at this time since patient is asymptomatic.
--- NOTE | 2020-09-10 14:53 | PC.NURSE ---
On 09/10/20, the student, Elizabet Fernandez, provided care and completed [facility] documentation on this patient. I have reviewed the student's documentation and agree with the findings.
--- NOTE | 2020-09-10 16:05 | PM.CNGS ---
Assessment and Plan Assessment and plan (1) Cellulitis of left leg: Code(s): L03.116 - Cellulitis of left lower limb Status: Acute Assessment and Plan: I think most of this is stasis dermatitis and pain from the ulcer associated with the stasis dermatitis. Continue IV antibiotics. 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 It does not require surgical debridement. Continue Santyl dressings for enzymatic debridement. This will be very slow to heal. I do not think she will need to be in the hospital but just a few days. She will need to follow up in the wound clinic in 1-2 weeks to continue chronic wound care for this to heal. Thank you for asking me to see her in consultation. Continue Santyl dressing changes daily. Okay to ambulate. Try to keep leg elevated when sitting. History of Present Illness Consult details Consult date: 09/10/20 Reason for consult: wound care (left leg ulcer) Narrative: Patient is a 64-year-old woman who was admitted here about 1 month ago with cellulitis and a left lower leg open wound. At that time there was infection and bacteremia. She was treated with IV antibiotics and in went home on antibiotics. She bumped the area recently and it is become more red and swollen. She was admitted last night and I was consulted early this morning regarding evaluation of her left lower leg wound for possible surgical debridement. She is seen now in consultation for that purpose. Review of Systems Review of Systems: All systems reviewed & are unremarkable except as noted in HPI and below Constitutional: Constitutional: Denies chills and Denies fever(s) Cardiovascular: Cardiovascular: Denies chest pain, Denies diaphoresis, Denies dyspnea and Denies paroxysmal nocturnal dyspnea Respiratory: Respiratory: Denies chest congestion, Denies cough and Denies dyspnea PMFSH Past Medical History Medical History (Updated 09/10/20 @ 16:15 by Hansel Bates MD) HTN (hypertension) with goal to be determined Patient denies significant medical history Family History Family History Mother Cancer Father Cancer Social History Social History Smoking status: Never smoker Alcohol intake: never Substance use: never Gender identity (if verbalized by the patient): Female Spiritual care concerns: No Meds Home Medications and Allergies Home Medications Medication Instructions Recorded Confirmed Type lisinopril-hydrochlorothiazide 1 tablet PO BID 08/11/20 09/10/20 History lorazepam 0.5 mg PO TID PRN 08/11/20 09/10/20 History ropinirole 4 mg PO HS PRN 08/11/20 09/10/20 History tramadol 50 mg PO Q6H PRN 08/11/20 09/10/20 History ferrous sulfate 324 mg PO DAILY #30 tablet 08/16/20 09/10/20 Rx atenolol 50 mg PO DAILY 09/10/20 09/10/20 History cyclobenzaprine 10 mg PO HS PRN 09/10/20 09/10/20 History diazepam 2 mg PO Q8H PRN 09/10/20 09/10/20 History Allergies Allergy/AdvReac Type Severity Reaction Status Date / Time No Known Allergies Allergy Verified 09/10/20 00:33 Vital Signs Vital Signs - 24 hr 09/09/20 18:31 09/09/20 21:49 09/10/20 00:15 Temperature 36.1 C L 36.1 C L Pulse Rate 60 58 L 54 L Respiratory Rate 18 16 22 H Blood Pressure 140/86 162/67 H 1185/64 H Pulse Oximetry 99 98 98 09/10/20 06:00 09/10/20 08:33 09/10/20 09:10 Temperature 36.3 C L Pulse Rate 56 L 66 66 Respiratory Rate 22 H 20 Blood Pressure 135/54 L Pulse Oximetry 98 98 09/10/20 10:30 09/10/20 14:00 Temperature 36.4 C 36.5 C Pulse Rate 42 L 40 L Respiratory Rate
[2020-09-11 05:47] VITALS: BP 120/46; PULSE 40; RESP 20; TEMP 36.1; O2SAT 99
[2020-09-11 06:06] LABS: Hematocrit 33.4 % (37.0-47.0); Hemoglobin 10.2 g/dL (12.0-15.0); Mean Corpuscular HGB Conc 30.5 g/dl (32-36); Mean Corpuscular Hemoglobin 25.3 pg (26-34); Mean Corpuscular Volume 82.9 fl (80-100); Mean Platelet Volume 9.8 fl (7.4-10.4); Platelet Count Result 236 k/mm3 (150-375); Red Blood Count 4.03 M/mm3 (4.2-5.4); Red Cell Distribution Width 16.6 % (11.5-14.5); White Blood Count 9.1 K/mm3 (4.5-10.0)
[2020-09-11 06:16] LABS: Anion Gap 4 mmol/L (8-16); Blood Urea Nitrogen 19 mg/dL (7-17); Calcium 9.2 mg/dL (8.4-10.2); Carbon Dioxide 30 mmol/L (22-30); Chloride 103 mmol/L (98-107); Estimated CRCL calculation 98 ml/min; Estimated Glomerular Filt Rate > 60; Glucose 112 mg/dL (65-105); Sodium 137 mmol/L (137-145)
[2020-09-11] MEDS: COLLAGENASE OINT 30 GM TUBE 1 APPLIC TOPICAL (09:15)
[2020-09-11] MEDS: ENOXAPARIN 40 MG/0.4 ML SYRINGE SUB-Q (09:15)
[2020-09-11 09:16] VITALS: PULSE 52; RESP 20; O2SAT 99
[2020-09-11] MEDS: FERROUS SULFATE 324 MG TABLET PO (09:16)
[2020-09-11 09:20] VITALS: BP 127/43; PULSE 52
[2020-09-11 09:20] LABS: Vancomycin Trough 10.9 ug/mL (10.0-20.0)
[2020-09-11] MEDS: hydroCHLOROthiazide 12.5 MG CAPSULE PO ×2 (09:51→17:23)
[2020-09-11] MEDS: lisinopriL 20 MG TABLET PO ×2 (09:52→17:23)
--- NOTE | 2020-09-11 12:28 | PM.IMPN ---
Progress Note: A&P Assessment and Plan (1) Cellulitis of left leg: Code(s): L03.116 - Cellulitis of left lower limb Status: Acute Assessment and Plan: Admit to med-surg. continue IV Vancomycin, blood culture pending. 09/11/20 Patient is 64-year-old female with history of hypertension was recently discharged hospital after see was treated left lower extremity cellulitis patient presents to emergency department with 2 week history worsening redness swelling and pain. patient states but 2 weeks ago she ran into storage bin with her left lower leg since then her symptoms are getting progressively worse, and there is serosanguineous drainage, she denies any fever or chills she denies any chest pain shortness of breath palpitation, from emergency depart patient was started on vancomycin, wound and blood cultures will not collected in the ER, will order wound and blood culture though patient is already started on vancomycin, patient was seen by wound team and wound is currently dressed. on 09/10 Patient was seen by Dr. Bates and does not recommended any surgical intervention recommended continue topical treatment and Santyl dressings for enzymatic debridement. patient states feeling is able ambulate, denies any chest pain shortness of breath palpitation fever, patient heart rate is low will holding atenolol patient has no clinical symptoms of chest pain shortness of breath or dizziness (2) Infected wound: Code(s): T14.8XXA - Other injury of unspecified body region, initial encounter; L08.9 - Local infection of the skin and subcutaneous tissue, unspecified Status: Chronic Assessment and Plan: continue IV antibiotics, General surgery consult in am. (3) Hypertension: Qualifiers: Hypertension type: unspecified Qualified Code(s): I10 - Essential (primary) hypertension Code(s): I10 - Essential (primary) hypertension Status: Chronic Assessment and Plan: Monitor blood pressure. Continue antihypertensives. Subjective Date/time seen: 09/11/20 Patient is 64-year-old female with history of hypertension was recently discharged hospital after see was treated left lower extremity cellulitis patient presents to emergency department with 2 week history worsening redness swelling and pain. patient states but 2 weeks ago she ran into storage bin with her left lower leg since then her symptoms are getting progressively worse, and there is serosanguineous drainage, she denies any fever or chills she denies any chest pain shortness of breath palpitation, from emergency depart patient was started on vancomycin, wound and blood cultures will not collected in the ER, will order wound and blood culture though patient is already started on vancomycin, patient was seen by wound team and wound is currently dressed. on 09/10 Patient was seen by Dr. Bates and does not recommended any surgical intervention recommended continue topical treatment and Santyl dressings for enzymatic debridement. patient states feeling is able ambulate, denies any chest pain shortness of breath palpitation fever, patient heart rate is low will holding atenolol patient has no clinical symptoms of chest pain shortness of breath or dizziness Review of Systems Review of Systems: All systems reviewed & are unremarkable except as noted in HPI and below Exam Narrative: Exam Narrative: Patient is comfortable, NAD HEENT: eyes are clear and none icteric LUNGS:CTA HEART: RR S1S2 ABD: BS+, Soft and nontender Lower extremities: no edema SKIN: nonjaundiced MS: left lower extremity in wound dressing Neuro: grossly intact. Objective Data Vital Signs Vital Signs: Vital Signs - 24 hr 09/10/20 14:00 09/10/20 16:32 09/10/20 21:15 Temperature 97.7 F Pulse Rate 40 L 48 L Respiratory Rate 18 Blood Pressure 90/42 L 98/42 L Pulse Oximetry 99 96 95 09/10/20 22:00 09/11/20 05:47 09/11/20 09:20 Temperature 98.4 F
[2020-09-11 14:00] VITALS: BP 116/47; PULSE 65; RESP 18; TEMP 36.3; O2SAT 97
[2020-09-11 20:26] VITALS: BP 135/52; PULSE 43; RESP 14; TEMP 36.6; O2SAT 97
[2020-09-11] MEDS: traMADol HCL (*CRX) 50 MG TABLET PO (20:53)
[2020-09-12] VITALS (7 sets, daily range): BP systolic 117–137; BP diastolic 40–59; PULSE 40–61; RESP 16; TEMP 36.5–36.7; O2SAT 96–98
[2020-09-12 05:45] LABS: Hematocrit 34.1 % (37.0-47.0); Hemoglobin 10.3 g/dL (12.0-15.0); Mean Corpuscular HGB Conc 30.2 g/dl (32-36); Mean Corpuscular Volume 82.8 fl (80-100); Mean Platelet Volume 10.1 fl (7.4-10.4); Platelet Count Result 231 k/mm3 (150-375); Red Blood Count 4.12 M/mm3 (4.2-5.4); Red Cell Distribution Width 16.4 % (11.5-14.5)
[2020-09-12 05:49] LABS: Anion Gap 3 mmol/L (8-16); Blood Urea Nitrogen 21 mg/dL (7-17); Calcium 9.2 mg/dL (8.4-10.2); Carbon Dioxide 33 mmol/L (22-30); Chloride 100 mmol/L (98-107); Estimated CRCL calculation 83 ml/min; Estimated Glomerular Filt Rate > 60; Glucose 115 mg/dL (65-105); Potassium 3.9 mmol/L (3.4-5.0); Sodium 136 mmol/L (137-145)
[2020-09-12] MEDS: ENOXAPARIN 40 MG/0.4 ML SYRINGE SUB-Q (08:28)
[2020-09-12] MEDS: hydroCHLOROthiazide 12.5 MG CAPSULE PO ×2 (08:28→17:11)
[2020-09-12] MEDS: lisinopriL 20 MG TABLET PO ×2 (08:29→17:11)
[2020-09-12] MEDS: FERROUS SULFATE 324 MG TABLET PO (08:29)
[2020-09-12] MEDS: COLLAGENASE OINT 30 GM TUBE 1 APPLIC TOPICAL (08:30)
--- NOTE | 2020-09-12 16:42 | PM.IMPN ---
Progress Note: A&P Assessment and Plan (1) Cellulitis of left leg: Code(s): L03.116 - Cellulitis of left lower limb Status: Acute Assessment and Plan: Admit to med-surg. continue IV Vancomycin, blood culture pending. 09/12/20 16:42 Patient is 64-year-old female with history of hypertension was recently discharged hospital after see was treated left lower extremity cellulitis patient presents to emergency department with 2 week history worsening redness swelling and pain. patient states but 2 weeks ago she ran into storage bin with her left lower leg since then her symptoms are getting progressively worse, and there is serosanguineous drainage, she denies any fever or chills she denies any chest pain shortness of breath palpitation, from emergency depart patient was started on vancomycin, wound and blood cultures will not collected in the ER, will order wound and blood culture though patient is already started on vancomycin, patient was seen by wound team and wound is currently dressed. on 09/10 Patient was seen by Dr. Bates and does not recommended any surgical intervention recommended continue topical treatment and Santyl dressings for enzymatic debridement.Patient blood culture no growth so far, will continue IV antibiotic, today on 09/12 patient states feeling better was able to ambulate and her HR responded appropiately, denies any chest pain shortness of breath palpitation fever, patient heart rate is low, we are holding atenolol, patient has no clinical symptoms of chest pain shortness of breath or dizziness while ambulating (2) Infected wound: Code(s): T14.8XXA - Other injury of unspecified body region, initial encounter; L08.9 - Local infection of the skin and subcutaneous tissue, unspecified Status: Chronic Assessment and Plan: continue IV antibiotics, General surgery consult in am. (3) Hypertension: Qualifiers: Hypertension type: unspecified Qualified Code(s): I10 - Essential (primary) hypertension Code(s): I10 - Essential (primary) hypertension Status: Chronic Assessment and Plan: Monitor blood pressure. Continue antihypertensives. Subjective Date/time seen: 09/12/20 16:42 Patient is 64-year-old female with history of hypertension was recently discharged hospital after see was treated left lower extremity cellulitis patient presents to emergency department with 2 week history worsening redness swelling and pain. patient states but 2 weeks ago she ran into storage bin with her left lower leg since then her symptoms are getting progressively worse, and there is serosanguineous drainage, she denies any fever or chills she denies any chest pain shortness of breath palpitation, from emergency depart patient was started on vancomycin, wound and blood cultures will not collected in the ER, will order wound and blood culture though patient is already started on vancomycin, patient was seen by wound team and wound is currently dressed. on 09/10 Patient was seen by Dr. Bates and does not recommended any surgical intervention recommended continue topical treatment and Santyl dressings for enzymatic debridement.Patient blood culture no growth so far, will continue IV antibiotic, today on 09/12 patient states feeling better was able to ambulate and her HR responded appropiately, denies any chest pain shortness of breath palpitation fever, patient heart rate is low, we are holding atenolol, patient has no clinical symptoms of chest pain shortness of breath or dizziness while ambulating Review of Systems Review of Systems: All systems reviewed & are unremarkable except as noted in HPI and below Exam Narrative: Exam Narrative: Patient is comfortable, NAD HEENT: eyes are clear and none icteric LUNGS:CTA HEART: RR S1S2 ABD: BS+, Soft and nontender Lower extremities: no edema SKIN: nonjaundiced MS: left lower extremity in wound dressing Neuro: grossly intac
[2020-09-13 06:00] VITALS: BP 112/57; PULSE 42; RESP 16; TEMP 36.6; O2SAT 99
[2020-09-13 07:03] LABS: Hematocrit 38.5 % (37.0-47.0); Hemoglobin 11.5 g/dL (12.0-15.0); Mean Corpuscular HGB Conc 29.9 g/dl (32-36); Mean Corpuscular Hemoglobin 25.6 pg (26-34); Mean Corpuscular Volume 85.7 fl (80-100); Mean Platelet Volume 9.8 fl (7.4-10.4); Platelet Count Result 257 k/mm3 (150-375); Red Blood Count 4.49 M/mm3 (4.2-5.4); Red Cell Distribution Width 16.7 % (11.5-14.5); White Blood Count 8.7 K/mm3 (4.5-10.0)
[2020-09-13 07:21] LABS: Anion Gap 5 mmol/L (8-16); Blood Urea Nitrogen 28 mg/dL (7-17); Calcium 9.4 mg/dL (8.4-10.2); Carbon Dioxide 35 mmol/L (22-30); Chloride 97 mmol/L (98-107); Estimated CRCL calculation 72 ml/min; Estimated Glomerular Filt Rate > 60; Glucose 98 mg/dL (65-105); Potassium 3.8 mmol/L (3.4-5.0); Sodium 137 mmol/L (137-145)
[2020-09-13] MEDS: FERROUS SULFATE 324 MG TABLET PO (09:18)
[2020-09-13] MEDS: ENOXAPARIN 40 MG/0.4 ML SYRINGE SUB-Q (09:18)
[2020-09-13 10:07] VITALS: PULSE 49
[2020-09-13] MEDS: COLLAGENASE OINT 30 GM TUBE 1 APPLIC TOPICAL (10:57)
--- NOTE | 2020-09-13 11:24 | PM.IMPN ---
Progress Note: A&P Assessment and Plan (1) Cellulitis of left leg: Code(s): L03.116 - Cellulitis of left lower limb Status: Acute Assessment and Plan: Admit to med-surg. continue IV Vancomycin, blood culture pending. 09/13/20 11:29 Patient is 64-year-old female with history of hypertension was recently discharged hospital after see was treated left lower extremity cellulitis patient presents to emergency department with 2 week history worsening redness swelling and pain. patient states but 2 weeks ago she ran into storage bin with her left lower leg since then her symptoms are getting progressively worse, and there is serosanguineous drainage, she denies any fever or chills she denies any chest pain shortness of breath palpitation, from emergency depart patient was started on vancomycin, wound and blood cultures will not collected in the ER, will order wound and blood culture though patient is already started on vancomycin, patient was seen by wound team and wound is currently dressed. on 09/10 Patient was seen by Dr. Bates and does not recommended any surgical intervention recommended continue topical treatment and Santyl dressings for enzymatic debridement.Patient blood culture no growth so far, will continue IV antibiotic, on 09/12 patient states was feeling better was able to ambulate and her HR responded appropiately, today 09/13 examined her wound and it appeares to be healing well, there is no drainge and erythema has resolved, denies any chest pain shortness of breath palpitation fever, patient heart rate is low, we are holding atenolol, patient has no clinical symptoms of chest pain shortness of breath or dizziness while ambulating, will monitor one more day and her son will come tomorrow and will discharge her. (2) Infected wound: Code(s): T14.8XXA - Other injury of unspecified body region, initial encounter; L08.9 - Local infection of the skin and subcutaneous tissue, unspecified Status: Chronic Assessment and Plan: continue IV antibiotics, General surgery consult in am. (3) Hypertension: Qualifiers: Hypertension type: unspecified Qualified Code(s): I10 - Essential (primary) hypertension Code(s): I10 - Essential (primary) hypertension Status: Chronic Assessment and Plan: Monitor blood pressure. Continue antihypertensives. Subjective Date/time seen: 09/13/20 11:29 Patient is 64-year-old female with history of hypertension was recently discharged hospital after see was treated left lower extremity cellulitis patient presents to emergency department with 2 week history worsening redness swelling and pain. patient states but 2 weeks ago she ran into storage bin with her left lower leg since then her symptoms are getting progressively worse, and there is serosanguineous drainage, she denies any fever or chills she denies any chest pain shortness of breath palpitation, from emergency depart patient was started on vancomycin, wound and blood cultures will not collected in the ER, will order wound and blood culture though patient is already started on vancomycin, patient was seen by wound team and wound is currently dressed. on 09/10 Patient was seen by Dr. Bates and does not recommended any surgical intervention recommended continue topical treatment and Santyl dressings for enzymatic debridement.Patient blood culture no growth so far, will continue IV antibiotic, on 09/12 patient states was feeling better was able to ambulate and her HR responded appropiately, today 09/13 examined her wound and it appeares to be healing well, there is no drainge and erythema has resolved, denies any chest pain shortness of breath palpitation fever, patient heart rate is low, we are holding atenolol, patient has no clinical symptoms of chest pain shortness of breath or dizziness while ambulating, will monitor one more day and her son will come tomorrow and will discharge her.
[2020-09-13 14:00] VITALS: BP 121/50; PULSE 62; RESP 12; TEMP 36.5; O2SAT 98
[2020-09-13 17:09] VITALS: BP 115/54; PULSE 53; O2SAT 97
[2020-09-13 20:52] VITALS: BP 114/55; PULSE 52; RESP 16; TEMP 36.4; O2SAT 98
--- NOTE | 2020-09-14 01:17 | PC.NURSE ---
Daylight Savings Time For Daylight Savings Time Ending in the Fall - Clocks are moved back. For Daylight Savings Time Beginning in the Spring - Clocks are moved ahead. For [facility], the time of change occurs at 0200 hrs. Time is taken from the sports book server. This entry on the patient's chart recognizes the change in time reflected during documentation. Example: 2 entries for vital signs may be charted for 0200 hrs.
[2020-09-14 05:04] VITALS: BP 139/60; PULSE 54; RESP 16; TEMP 36.6; O2SAT 98
[2020-09-14 05:37] LABS: Hematocrit 36.9 % (37.0-47.0); Hemoglobin 11.1 g/dL (12.0-15.0); Mean Corpuscular HGB Conc 30.1 g/dl (32-36); Mean Corpuscular Hemoglobin 25.2 pg (26-34); Mean Corpuscular Volume 83.9 fl (80-100); Mean Platelet Volume 9.2 fl (7.4-10.4); Platelet Count Result 219 k/mm3 (150-375); Red Cell Distribution Width 16.4 % (11.5-14.5); White Blood Count 7.1 K/mm3 (4.5-10.0)
[2020-09-14 06:07] LABS: Anion Gap 1 mmol/L (8-16); Blood Urea Nitrogen 22 mg/dL (7-17); Calcium 9.2 mg/dL (8.4-10.2); Carbon Dioxide 35 mmol/L (22-30); Chloride 100 mmol/L (98-107); Estimated CRCL calculation 83 ml/min; Estimated Glomerular Filt Rate > 60; Glucose 114 mg/dL (65-105); Potassium 4.2 mmol/L (3.4-5.0); Sodium 136 mmol/L (137-145)
[2020-09-14 08:33] VITALS: BP 117/51; PULSE 55; O2SAT 97
[2020-09-14 09:11] VITALS: PULSE 55
[2020-09-14] MEDS: FERROUS SULFATE 324 MG TABLET PO (09:11)
[2020-09-14] MEDS: ENOXAPARIN 40 MG/0.4 ML SYRINGE SUB-Q (09:11)
[2020-09-14] MEDS: DOXYCYCLINE HYCLATE 100 MG TABLET PO (10:16)
--- NOTE | 2020-09-14 12:02 | PM.DS ---
DS: Admitting Diagnosis Admitting Diagnosis Admitting Diagnosis: left leg cellulitis DS: Discharge Diagnosis Discharge Diagnosis (1) Cellulitis of left leg: Code(s): L03.116 - Cellulitis of left lower limb Status: Acute Assessment and Plan: Admit to med-surg. continue IV Vancomycin, blood culture pending. 09/13/20 11:29 Patient is 64-year-old female with history of hypertension was recently discharged hospital after see was treated left lower extremity cellulitis patient presents to emergency department with 2 week history worsening redness swelling and pain. patient states but 2 weeks ago she ran into storage bin with her left lower leg since then her symptoms are getting progressively worse, and there is serosanguineous drainage, she denies any fever or chills she denies any chest pain shortness of breath palpitation, from emergency depart patient was started on vancomycin, wound and blood cultures will not collected in the ER, will order wound and blood culture though patient is already started on vancomycin, patient was seen by wound team and wound is currently dressed. on 09/10 Patient was seen by Dr. Bates and does not recommended any surgical intervention recommended continue topical treatment and Santyl dressings for enzymatic debridement.Patient blood culture no growth so far, will continue IV antibiotic, on 09/12 patient states was feeling better was able to ambulate and her HR responded appropiately, today 09/13 examined her wound and it appeares to be healing well, there is no drainge and erythema has resolved, denies any chest pain shortness of breath palpitation fever, patient heart rate is low, we are holding atenolol, patient has no clinical symptoms of chest pain shortness of breath or dizziness while ambulating, will monitor one more day and her son will come tomorrow and will discharge her. (2) Infected wound: Code(s): T14.8XXA - Other injury of unspecified body region, initial encounter; L08.9 - Local infection of the skin and subcutaneous tissue, unspecified Status: Chronic Assessment and Plan: continue IV antibiotics, General surgery consult in am. (3) Hypertension: Qualifiers: Hypertension type: unspecified Qualified Code(s): I10 - Essential (primary) hypertension Code(s): I10 - Essential (primary) hypertension Status: Chronic Assessment and Plan: Monitor blood pressure. Continue antihypertensives. DS: Summary Hospital Course Reason for hospitalization: Chief complaint: left leg cellulitis Narrative: This is a 64 year old obese female with known HTN and known to me from a recent admission to the hospital for cellulitis who presented to the hospital with a complaint of increased LLE redness, swelling, and drainage from her wound over the past week. She reports that about 2 weeks ago she did hit her leg right on her wound on a storage bin and since then it started to get red and swollen again. She has had a serosanguineous drainage from her wound. Tonight she denies any associated symptoms of fever, nausea, vomiting, chest pain, palpitations, abdominal pain, dysuria, hematuria, diarrhea or rectal bleeding. The patient was evaluated in the ER tonight and routine labs demonstrated mild leukocytosis. The patient was started on IV antibiotics and we have been asked to admit her to the hospital for further care. No other complaints. Hospital Course: Patient is 64-year-old female with history of hypertension was recently discharged hospital after see was treated left lower extremity cellulitis patient presents to emergency department with 2 week history worsening redness swelling and pain. patient states but 2 weeks ago she ran into storage bin with her left lower leg since then her symptoms are getting progressively worse, and there is serosanguineous drainage, she denies any fever or chills she denies any chest pain shortness of breath pal
[2020-09-14] MEDS: COLLAGENASE OINT 30 GM TUBE 1 APPLIC TOPICAL (12:16)
--- NOTE | 2020-09-14 12:29 | PC.NURSE ---
Provided wound care instructions/demonstration at bedside with patients son. Patient and son verbalized understanding. Sent home with supplies.
== END 2020-09-14 12:35 | disposition home or self-care (01) | DRG 603 ==
LOC: ANHED 22:07 → ANH2MED 09-10 00:58
PROVIDERS: Emergency Medicine; Admitting Provider Family Medicine; Emergency Provider Emergency Medicine; PCP Family Medicine; Visit Provider Family Medicine
DX: L03.116 Cellulitis of left lower limb (principal); L97.322 Non-pressure chronic ulcer of left ankle with fat layer exposed; I87.8 Other specified disorders of veins; I10 Essential (primary) hypertension
CPT/HCPCS: 36415; 80048; 80053; 80202; 85025; 85027; 87040; 93005; 96374; 96375; 97161; 99285; A9270; J0692; J1650; J1885; J3370

== ENCOUNTER 2020-11-17 11:00 | Outpatient (RCR) | payer MEDICARE, MEDICAID, SELFPAY ==
[2020-09-24 14:45] VITALS: BMI 31.7
--- NOTE | 2020-10-13 14:29 | WPDWOUNDNOTE ---
Wound Care Note Date/Time: 10/13/20 14:29 left lower leg wound is smaller by several mm in both length and width. It is centrifuge separator tender but less than it has been Assessment and Plan Assessment and plan (1) Venous stasis ulcer of ankle with fat layer exposed with varicose veins: Code(s): I83.003 - Varicose veins of unspecified lower extremity with ulcer of ankle; L97.302 - Non-pressure chronic ulcer of unspecified ankle with fat layer exposed Status: Chronic Assessment and Plan: Ulcer clean and getting smaller, slowly. Continue silver gel dressings. Also gave patient compression tubes to wear to hopefully decrease the amount of edema. I also suggested she try elevating her left leg for an hour in the morning and again in the afternoon. Recheck again in 4 weeks in the wound clinic. Review of Systems Review of Systems: All systems reviewed & are unremarkable except as noted in HPI and below ( HPI) Constitutional: Constitutional: Denies body ache(s), Denies chills and Denies fever(s) Cardiovascular: Cardiovascular: Reports leg ulcers and Reports other ( lower extremity edema, bilateral) Integumentary/Breasts: Skin/Breast: Reports skin ulcer Exam Const: General: cooperative, healthy appearing, no acute distress, alert and awake Nutritional Appearance: obese Orientation/consciousness: patient oriented x3 Limitations: physical limitations Extrem: Right lower extremity: edema Left lower extremity: edema ( clean ulcer left lower leg anterolateral.) Details: pitting and 3+
--- NOTE | 2020-10-13 16:25 | WPDWOUNDNOTE ---
Wound Care Note Date/Time: 09/24/20 12:25 patient seen again in the wound clinic for venous stasis ulcer of the left lower leg. She has been dressing her ulcer with silver gel and Mepilex transfer daily. Assessment and Plan Assessment and plan (1) Venous stasis ulcer of ankle with fat layer exposed with varicose veins: Qualifiers: Laterality: left Qualified Code(s): I83.023 - Varicose veins of left lower extremity with ulcer of ankle; L97.322 - Non-pressure chronic ulcer of left ankle with fat layer exposed Code(s): I83.003 - Varicose veins of unspecified lower extremity with ulcer of ankle; L97.302 - Non-pressure chronic ulcer of unspecified ankle with fat layer exposed Status: Chronic Assessment and Plan: Ulcer healing. These heal very slowly. The edema in her leg is not helping. Advised to try to keep her left leg elevated more. Continue silver dressings with Mepilex transfer. Recheck again in 2-3 weeks. Review of Systems Review of Systems: All systems reviewed & are unremarkable except as noted in HPI and below ( HPI) Exam Const: General: cooperative, healthy appearing, comfortable, no acute distress, alert and awake Nutritional Appearance: obese Orientation/consciousness: patient oriented x3 Limitations: physical limitations Extrem: Left lower extremity: edema Details: 3+ and lower leg Details: pitting edema and other ( ulcer is 3.5 x 1.2 cm. Healthy pink wound base. Leg still edematous and periwound tissues tender but not as tender as previously.)
--- NOTE | 2020-11-13 08:19 | PCWOUND ---
WOCN NOTE Patient left message to cancel for today. rescheduled for next week.
== END 2020-12-08 10:15 | disposition home or self-care (01) ==
LOC: ANHWOC 11:00
PROVIDERS: PCP Family Medicine; Visit Provider Surgery
DX: L03.116 Cellulitis of left lower limb (principal)
CPT/HCPCS: 99211; 99212; G0463

== ENCOUNTER 2021-03-09 07:29 | Outpatient (RCR) | payer MEDICARE, MEDICAID, SELFPAY ==
[2021-01-19 12:58] VITALS: BMI 31.7
--- NOTE | 2021-02-03 13:25 | WPDWOUNDNOTE ---
Wound Care Note Date/Time: 02/03/21 13:25 Patient seen in the wound clinic on 01/26/2021. She was seen primarily last fall for a venous stasis ulcer on the left leg. This has essentially healed. Then around January 12 she injured her right lateral leg by hitting it on the corner of an open car door causing a wound there. She still has a lot of problems with venous stasis disease and brawny edema of both legs. The left leg wound has improved significantly and essentially is no longer a problem. She is seen now in recheck of the right lateral leg wound. Wound approximation: No Wound width: 1.1 cm Wound length: 1.5 cm Wound depth: 0.5 cm Drainage: pink serosanguineous Surrounding tissue appearance: 4+ pitting edema of the leg. Percentage granulation tissue: One hundred Treatment/Procedures: emphasized need to elevate the legs and continue to use the 2 be gauze compression stockings that we have given her. Leg edema is making the wound take much longer to heal. Dressings: Silver gel, Mepilex transfer, Band-Aid. Assessment and Plan Assessment and plan (1) Ulcer of right leg: Qualifiers: Non-pressure ulcer stage: unspecified non-pressure ulcer stage Qualified Code(s): L97.919 - Non-pressure chronic ulcer of unspecified part of right lower leg with unspecified severity Code(s): L97.919 - Non-pressure chronic ulcer of unspecified part of right lower leg with unspecified severity Status: Chronic Assessment and Plan: improving. Continue silver gel Mepilex transfer and Band-Aid dressing changes. Recheck in 3 weeks in the wound clinic. Emphasized importance of minimizing the lower extremity edema. (2) Lymphedema of right lower extremity: Code(s): I89.0 - Lymphedema, not elsewhere classified Status: Chronic Assessment and Plan: Making the wound more difficult to heal. Very edematous today. Discussed thoroughly with the patient the importance of minimizing edema. (3) Venous stasis ulcer of ankle with fat layer exposed with varicose veins: Qualifiers: Laterality: left Qualified Code(s): I83.023 - Varicose veins of left lower extremity with ulcer of ankle; L97.322 - Non-pressure chronic ulcer of left ankle with fat layer exposed Code(s): I83.003 - Varicose veins of unspecified lower extremity with ulcer of ankle; L97.302 - Non-pressure chronic ulcer of unspecified ankle with fat layer exposed Status: Resolved Assessment and Plan: healed Review of Systems Review of Systems: All systems reviewed & are unremarkable except as noted in HPI and below Constitutional: Constitutional: Denies chills, Denies fever(s) and Denies headache(s) Cardiovascular: Cardiovascular: Reports leg edema ( Bilateral lower extremity edema chronic, venous stasis disease) Neurologic: Denies confusion and Denies headache(s) Exam Const: General: comfortable and no acute distress; No confusion Orientation/consciousness: patient oriented x3 and No confusion Skin: Wounds: wounds noted ( right leg, see above) Extrem: General: edema ( 4+ pitting edema both lower legs) Psych: Affect: normal affect Insight: Good insight present (Psych) Judgement: Good judgement present (Psych)
--- NOTE | 2021-02-16 12:20 | WPDWOUNDNOTE ---
Wound Care Note Date/Time: 02/16/21 12:20 History: She was seen primarily last fall for a venous stasis ulcer on the left leg. This has essentially healed. Then around January 12 she injured her right lateral leg by hitting it on the corner of an open car door causing a wound there. She still has a lot of problems with venous stasis disease and brawny edema of both legs. The left leg wound has improved significantly and essentially is no longer a problem. She is seen now in recheck of the right lateral leg wound. Wound history: Last visit of 01/26/2021 wound was 1.1 cm wide, 1.5 cm long and had a depth of 0.5 cm. She had 4+ pitting edema of the leg at that visit as well. She has been using silver gel, Mepilex transfer and a Band-Aid to cover the wound. Tubigauze compression gauze has been used as well to minimize edema in her legs. Wound approximation: No Wound width: 1.0 cm Wound length: 0.9 cm Wound depth: 0.3 cm Drainage: serous drainage Surrounding tissue appearance: edematous, brawny, no rashes. Tunneling: None Percentage granulation tissue: 100% Treatment/Procedures: loose eschar removed from wound Dressings: silver gel with Mepilex transfer and Band-Aid daily. Continue compression gauze. Assessment and Plan Assessment and plan (1) Ulcer of right leg: Qualifiers: Non-pressure ulcer stage: unspecified non-pressure ulcer stage Qualified Code(s): L97.919 - Non-pressure chronic ulcer of unspecified part of right lower leg with unspecified severity Code(s): L97.919 - Non-pressure chronic ulcer of unspecified part of right lower leg with unspecified severity Status: Chronic Assessment and Plan: Ulcer continues to heal slowly. Patient not very compliant with leg elevation and compression gauze which is making the progress very slow. No signs of infection. Will check her again in the wound clinic in 3 weeks. (2) Lymphedema of right lower extremity: Code(s): I89.0 - Lymphedema, not elsewhere classified Status: Chronic Assessment and Plan: Patient advised again to wear compression gauze and keep legs elevated to minimize the edema and facilitate wound healing. Review of Systems Review of Systems: All systems reviewed & are unremarkable except as noted in HPI and below Constitutional: Constitutional: Denies body ache(s), Denies chills, Denies fever(s), Denies headache(s), Denies malaise and Denies weakness Cardiovascular: Cardiovascular: Denies chest pain and Denies dyspnea Respiratory: Respiratory: Denies cough and Denies dyspnea Neurologic: Denies confusion and Denies headache(s) Psychiatric: Psychiatric: Denies confusion Exam Const: General: comfortable and no acute distress; No confusion Orientation/consciousness: patient oriented x3 and No confusion Neuro: General: patient oriented x3, no focal motor deficits and No confusion Extrem: General: no calf tenderness and edema bilateral ( Three to 4+ edema unchanged) Right lower extremity: edema and lower leg Details: pitting edema and laceration ( chronic wound, pink and granulating, very superficial.); no tenderness and no unusual warmth Psych: Affect: normal affect Insight: Good insight present (Psych) Judgement: Good judgement present (Psych)
--- NOTE | 2021-03-16 15:53 | WPDWOUNDNOTE ---
Wound Care Note Date/Time: 03/09/2021 11:00 a.m. History: bilateral lymphedema both lower extremities, right leg injured from the edge of a car door Wound history: bilateral lower extremity edema has been a consistent problem throughout. Wound has improved with leg elevation and dressings of silver gel with Mepilex transfer and a Band-Aid cover dressing. Wound approximation: Yes Drainage: None Surrounding tissue appearance: edematous legs Treatment/Procedures: none Dressings: no dressings needed. Assessment and Plan Assessment and plan (1) Ulcer of right leg: Qualifiers: Non-pressure ulcer stage: unspecified non-pressure ulcer stage Qualified Code(s): L97.919 - Non-pressure chronic ulcer of unspecified part of right lower leg with unspecified severity Code(s): L97.919 - Non-pressure chronic ulcer of unspecified part of right lower leg with unspecified severity Status: Chronic Assessment and Plan: healed. No further follow-up or wound care necessary. (2) Lymphedema of right lower extremity: Code(s): I89.0 - Lymphedema, not elsewhere classified Status: Chronic Assessment and Plan: Advised to minimize salt intake and keep legs elevated as before. Review of Systems Review of Systems: All systems reviewed & are unremarkable except as noted in HPI and below Constitutional: Constitutional: Denies chills, Denies fever(s), Denies headache(s) and Denies lethargy Exam Extrem: General: edema bilateral ( 3+ edema) Right lower extremity: lower leg ( Lateral ulcer healed and closed)
== END 2021-04-19 23:59 | disposition home or self-care (01) ==
LOC: ANHWOC 07:29
PROVIDERS: PCP Family Medicine; Visit Provider Surgery
DX: L03.115 Cellulitis of right lower limb (principal); L97.919 Non-pressure chronic ulcer of unspecified part of right lower leg with unspecified severity; I89.0 Lymphedema, not elsewhere classified
CPT/HCPCS: 99211; 99212; G0463

== ENCOUNTER 2021-06-08 22:31 | Emergency (ER) | payer MEDICARE, MEDICAID, SELFPAY ==
--- NOTE | ~2021-06-08 | XR_ITS ---
EXAMINATION: XR wrist LT min 3V DATE: 06/08/2021 23:10 INDICATION: Left wrist pain, initial encounter TECHNIQUE: Posteroanterior, ulnar deviation, oblique, and lateral views of the left wrist were obtain ed. COMPARISON: None available FINDINGS: There is an acute, traumatic, closed, intra-articular fracture of the distal radius. Soft t issue swelling surrounds the fracture. No additional acute osseous findings are identified. 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 IMPRESSION: 1. Acute intra-articular fracture of the distal radius. Reviewed, dictated and finalized at location A.
[2021-06-08 22:38] VITALS: BP 164/74; PULSE 60; RESP 20; TEMP 36.3; O2SAT 100
--- NOTE | 2021-06-08 23:10 | ED.UPPEXIN ---
HPI - Extremity Injury (Upper) General Chief Complaint: Extremity Injury, Upper Stated Complaint: wrist pain Time Seen by Provider: 06/08/21 22:41 Source: patient Mode of arrival: ambulatory Limitations: no limitations History of Present Illness HPI narrative: Patient is a 65 year old female who presents complaining of left wrist pain. She reports trip and fall in her yard prior to arrival. She denies hitting head, denies other injuries. She denies dizziness prior to fall. Patient denies taking over the counter medications for pain prior to arrival. Related Data Home Medications Medication Instructions Recorded Confirmed lisinopril-hydrochlorothiazide 1 tablet PO BID 08/11/20 03/18/21 lorazepam 0.5 mg PO TID PRN 08/11/20 03/18/21 ropinirole 4 mg PO HS PRN 08/11/20 03/18/21 tramadol 50 mg PO Q6H PRN 08/11/20 03/18/21 atenolol 50 mg PO DAILY 09/10/20 03/18/21 cyclobenzaprine 10 mg PO HS PRN 09/10/20 03/18/21 diazepam 2 mg PO Q8H PRN 09/10/20 03/18/21 trazodone 50 mg tablet 50 mg PO QHS PRN 03/18/21 03/18/21 Allergies Allergy/AdvReac Type Severity Reaction Status Date / Time No Known Allergies Allergy Verified 01/12/21 13:36 Review of Systems Review of Systems: Narrative: CONSTITUTIONAL: Denies fever, chills, or sweats. EYES: Denies visual changes, redness, or discharge. ENT: Denies rhinorrhea, congestion, sore throat, or otalgia. CARDIOVASCULAR: Denies chest pain, palpitations, or edema. RESPIRATORY: Denies cough or dyspnea. GASTROINTESTINAL: Denies abdominal pain, nausea, vomiting, or diarrhea. GENITOURINARY: Denies dysuria or hematuria. SKIN: Denies rash or itching. MUSCULOSKELETAL: Reports left wrist pain NEUROLOGIC: Denies headache, numbness, dizziness, or weakness. PSYCHIATRIC: Denies anxiety or depression. [facility] Past Medical History Medical History Anxiety Arthritis Asthma HTN (hypertension) with goal to be determined Patient denies significant medical history Surgical History Surgical History History of bilateral knee replacement Left 2013, right 2014 Family History Family History Mother Cancer Father Cancer Social History Social History Smoking status: Never smoker Alcohol intake: never Substance use: never Gender identity (if verbalized by the patient): Female Spiritual care concerns: No Comments At the time of signature, I have reviewed and agree with nursing past medical, surgical, social, and family history unless otherwise noted. Please see nursing chart for further information. There is no relevant family history pertinent to the presenting complaint. Exam Narrative: Exam Narrative: GENERAL: Well-appearing, well-nourished, and in no acute distress. HEAD: Normocephalic, atraumatic. EYES: EOMI. No redness or drainage. Conjunctiva are normal. ENT: Mucous membranes pink and moist. . CHEST: No respiratory distress. Clear to auscultation. HEART: Regular rate and rhythm. MUSCULOSKELETAL: No bony tenderness. EXTREMITIES: Normal range of motion. Tenderness with palpation to the left wrist. Mild edema noted, good capillary refill, distal sensation intact SKIN: Warm, dry, no rash. NEURO: No focal deficits. Alert and oriented x3. Gait steady. PSYCH: Normal affect. No signs of depression or anxiety. Course Vital Signs Vital signs: Vital Signs Temperature 36.3 C L 06/08/21 22:38 Pulse Rate 60 06/08/21 22:38 Respiratory Rate 20 06/08/21 22:38 Blood Pressure 164/74 H 06/08/21 22:38 Pulse Oximetry 100 06/08/21 22:38 Temperature 36.3 C L 06/08/21 22:38 Pulse Rate 60 06/08/21 22:38 Respiratory Rate 20 06/08/21 22:38 Blood Pressure 164/74 H 06/08/21 22:38 Pulse Oximetry 100 06/08/21 22:38 Reviewed-patient is informed th
== END 2021-06-09 01:06 | disposition home or self-care (01) ==
PROVIDERS: Emergency Provider Nurse Practitioner; PCP Family Medicine
DX: S52.572A Other intraarticular fracture of lower end of left radius, initial encounter for closed fracture (principal); J45.909 Unspecified asthma, uncomplicated; I10 Essential (primary) hypertension; M19.90 Unspecified osteoarthritis, unspecified site; F41.9 Anxiety disorder, unspecified; Z96.653 Presence of artificial knee joint, bilateral; W01.0XXA Fall on same level from slipping, tripping and stumbling without subsequent striking against object, initial encounter
CPT/HCPCS: 29125; 73110; 99284

== ENCOUNTER 2021-08-13 10:16 | Emergency (ER) | payer MEDICARE, MEDICAID, SELFPAY ==
--- NOTE | 2021-08-13 10:27 | ED.GENADULT ---
HPI - General Adult General Chief complaint: Skin/Abscess/Foreign Body Stated complaint: leg infection? Time Seen by Provider: 08/13/21 10:27 History of Present Illness HPI narrative: Patient is a 65-year-old female with history of hypertension who comes into the ED today for possible cellulitis in her right leg. Patient tells me that she was supposed to have an orthopedic procedure done to her right knee this morning but it was canceled because the orthopedic surgeon was concerned about a cellulitis in her right leg. The patient says that she has chronic bilateral lower extremity edema and redness for at least the last few years. Says the redness on her right leg has been like this a few times before. Does note that she bumped her right leg against her purse 3 or 4 days ago when she has some ecchymosis there because of that. She does not wear any compression stockings. She sleeps in a recliner. She denies any fevers, nausea, vomiting or any systemic symptoms. Related Data Home Medications Medication Instructions Recorded Confirmed lisinopril-hydrochlorothiazide 1 tablet PO BID 08/11/20 03/18/21 lorazepam 0.5 mg PO TID PRN 08/11/20 03/18/21 ropinirole 4 mg PO HS PRN 08/11/20 03/18/21 tramadol 50 mg PO Q6H PRN 08/11/20 03/18/21 atenolol 50 mg PO DAILY 09/10/20 03/18/21 cyclobenzaprine 10 mg PO HS PRN 09/10/20 03/18/21 diazepam 2 mg PO Q8H PRN 09/10/20 03/18/21 trazodone 50 mg tablet 50 mg PO QHS PRN 03/18/21 03/18/21 Allergies Allergy/AdvReac Type Severity Reaction Status Date / Time No Known Allergies Allergy Verified 01/12/21 13:36 Review of Systems Constitutional: Constitutional: Reports as per HPI, Denies fever(s), Denies night sweats and Denies weakness Cardiovascular: Cardiovascular: Denies chest pain, Denies edema, Denies leg edema, Denies dyspnea and Denies orthopnea Respiratory: Respiratory: Denies cough and Denies dyspnea Gastrointestinal: Gastrointestinal: Denies abdominal pain, Denies constipation, Denies diarrhea, Denies nausea and Denies vomiting Musculoskeletal: Musculoskeletal: Denies abnormal gait, Denies back pain, Denies numbness and Denies tingling Integumentary/Breasts: Comments: See HPI Neurologic: Denies Abnormal speech present, Denies abnormal gait, Denies numbness, Denies tingling and Denies weakness Psychiatric: Psychiatric: Denies homicidal ideation and Denies suicidal ideation [facility] Past Medical History Medical History Anxiety Arthritis Asthma HTN (hypertension) with goal to be determined Patient denies significant medical history Surgical History Surgical History History of bilateral knee replacement Left 2013, right 2014 Family History Family History Mother Cancer Father Cancer Social History Social History Smoking status: Never smoker Alcohol intake: never Substance use: never Gender identity (if verbalized by the patient): Female Sexual Orientation (if Verbalized by the Patient): Straight or Heterosexual Spiritual care concerns: No Exam Narrative: Elderly, pleasant, well-appearing, ED Arellano's Const: General: cooperative, healthy appearing, comfortable, no acute distress, well developed, alert, awake and Physically active Orientation/consciousness: patient oriented x3 HENMT: Head: normal to inspection, normocephalic and atraumatic Ears: external ears normal General nose exam: Normal external nose present Eyes: Pupils: Equal, round and reactive pupils present EOM: EOMs intact bilaterally Neck: Neck: normal visual inspection Chest: Chest palpation & inspection: normal inspection of the chest and no tenderness Resp: Effort & Inspection: normal respiratory effort and able to speak in complete sentences Auscultation: clear
[2021-08-13 10:32] VITALS: BP 156/58; PULSE 60; RESP 18; TEMP 36.6; O2SAT 95
[2021-08-13 11:30] VITALS: BP 138/80; PULSE 66; RESP 16; O2SAT 96
[2021-08-13 11:45] VITALS: BP 138/80; PULSE 66; RESP 16; O2SAT 96
== END 2021-08-13 11:40 | disposition home or self-care (01) ==
PROVIDERS: Emergency Provider Emergency Medicine; PCP Family Medicine
DX: I87.2 Venous insufficiency (chronic) (peripheral) (principal); J45.909 Unspecified asthma, uncomplicated; I10 Essential (primary) hypertension; M19.90 Unspecified osteoarthritis, unspecified site; F41.9 Anxiety disorder, unspecified; Z96.653 Presence of artificial knee joint, bilateral
CPT/HCPCS: 99283

== ENCOUNTER 2022-01-10 16:37 | Emergency (ER) | payer MEDICARE, MEDICAID, SELFPAY ==
[2022-01-10] VITALS (34 sets, daily range): BP systolic 140–183; BP diastolic 56–91; PULSE 64–96; RESP 12–25; TEMP 36.4; O2SAT 99–100
--- NOTE | ~2022-01-10 | XR_ITS ---
EXAMINATION: XR chest 2V DATE: 01/10/2022 17:48 INDICATION: Weakness and fatigue TECHNIQUE: AP and lateral views of the chest are obtained. COMPARISON: 10/01/2019 FINDINGS: The lungs are free of acute opacities. There is no pleural effusion or pneumothorax. The ca rdiomediastinal silhouette is normal. There is moderate thoracic spondylosis. IMPRESSION: 1. No acute cardiopulmonary abnormality. Reviewed, dictated and finalized at location F. NET FINISHER
--- NOTE | 2022-01-10 17:24 | ED.WEAKNESS ---
HPI - Weakness General Chief complaint: Weakness <Sweta Ramirez APRN - Last Filed: 01/11/22 03:14> Stated complaint: increased weakness <Sweta Ramirez APRN - Last Filed: 01/11/22 03:14> Time Seen by Provider: 01/10/22 17:03 <Sweta Ramirez APRN - Last Filed: 01/11/22 03:14> Source: patient <Sweta Dada Ramirez APRN - Last Filed: 01/11/22 03:14> Mode of arrival: wheelchair <Sweta Ramirez MAIN LINE STATION ENGINEER - Last Filed: 01/11/22 03:14> Limitations: no limitations <Sweta Ramirez APRN - Last Filed: 01/11/22 03:14> History of Present Illness HPI Narrative: 66-year-old female presents today with complaints of increased weakness. Patient states in October she had bilateral knee replacements done at [facility] by Dr. Bobo. Patient states over the last few weeks she has gotten increasingly weak. Patient states right leg started swelling, weeping, and became red about 1 week ago. Left leg with the swelling, wounds, weeping, and redness about 3 weeks ago. Patient currently on Keflex. Patient states she had an appointment with Ortho on but was unable to make it due to the weather and weakness. Patient denies fever, chills, shortness of breath. <Sweta Ramirez APRN - Last Filed: 01/11/22 03:14> Related Data Home medications: Home Medications Medication Instructions Recorded Confirmed lisinopril-hydrochlorothiazide 1 tablet PO BID 08/11/20 03/18/21 lorazepam 0.5 mg PO TID PRN 08/11/20 03/18/21 ropinirole 4 mg PO HS PRN 08/11/20 03/18/21 tramadol 50 mg PO Q6H PRN 08/11/20 03/18/21 atenolol 50 mg PO DAILY 09/10/20 03/18/21 cyclobenzaprine 10 mg PO HS PRN 09/10/20 03/18/21 diazepam 2 mg PO Q8H PRN 09/10/20 03/18/21 trazodone 50 mg tablet 50 mg PO QHS PRN 03/18/21 03/18/21 <Sweta Ramirez APRN - Last Filed: 01/11/22 03:14> Allergies/Adverse reactions: Allergies Allergy/AdvReac Type Severity Reaction Status Date / Time No Known Allergies Allergy Verified 01/12/21 13:36 <Sweta Ramirez APRN - Last Filed: 01/11/22 03:14> Review of Systems Review of Systems: CONSTITUTIONAL: Denies fever, chills, or sweats. EYES: Denies visual changes, redness, or discharge. ENT: Denies rhinorrhea, congestion, sore throat, or otalgia. CARDIOVASCULAR: Denies chest pain, palpitations, or edema. RESPIRATORY: Denies cough or dyspnea. GASTROINTESTINAL: Denies abdominal pain, nausea, vomiting, or diarrhea. GENITOURINARY: Denies dysuria or hematuria. SKIN: Denies rash or itching. Bilateral leg redness, weeping, swelling, and wounds. MUSCULOSKELETAL: Denies back pain, joint pain, or myalgia. NEUROLOGIC: Denies headache, numbness, dizziness, or weakness. PSYCHIATRIC: Denies anxiety or depression. <Sweta Ramirez APRN - Last Filed: 01/11/22 03:14> [facility] Past Medical History Medical History: Medical History (Updated 01/10/22 @ 19:35 by Sweta Ramirez APRN) Anxiety Arthritis Asthma Cellulitis of right leg HTN (hypertension) with goal to be determined Lymphedema of right lower extremity Patient denies significant medical history Ulcer of right leg Venous stasis ulcer of ankle with fat layer exposed with varicose veins <Sweta Ramirez APRN - Last Filed: 01/11/22 03:14> Surgical History Surgical History: Surgical History History of bilateral knee replacement Left 2013, right 2014 <Sweta Ramirez APRN - Last Filed: 01/11/22 03:14> Family History Family History: Family History Mother Cancer Father Cancer <Sweta Ramirez APRN - Last Filed: 01/11/22 03:14> Social History Social History: Social History Smoking status: Never smoker Alcohol intake: never Substance use: never Gender identity (if verbalized by the patient): Female Sexual Orientation (if Verbalized by the Patient): St
--- NOTE | 2022-01-10 17:25 | ECG_ITS ---
Measurements Intervals [place] Rate: 85 P: 67 [place]: 131 QRS: -2 QRSD: 102 T: 54 QT: 354 QTc: 423 Interpretive Statements SINUS RHYTHM DELAYED PRECORDIAL R/S TRANSITION LEFT VENTRICULAR HYPERTROPHY PEAKED T WAVES- CONSIDER HYPERKALEMIA OR ISCHEMIA BASELINE ARTIFACT- I, II, III, AVR, AVL, AVF, V2-V6 ABNORMAL ECG Electronically Signed On 01-10-2022 20:20:00 DENTAL FINANCIAL COORDINATOR by Jesse Wong D.O.
[2022-01-10 17:48] LABS: Basophils Absolute Auto 0.1 K/mm3 (0.0-0.1); Basophils Percent Auto 0.3 % (0.2-1.2); Hematocrit 36.7 % (37.0-47.0); Hemoglobin 11.9 g/dL (12.0-15.0); Immature Granulocyte Absolute 0.56 K/mm3 (0.00-0.031); Immature Granulocyte Percent A 2.1 % (0-0.5); Lymphocytes Absolute Auto 1.23 K/mm3 (0.9-3.2); Lymphocytes Percent Auto 4.7 % (18.3-44.2); Mean Corpuscular HGB Conc 32.4 g/dl (32-36); Mean Corpuscular Hemoglobin 26.4 pg (26-34); Mean Corpuscular Volume 81.6 fl (80-100); Monocytes Absolute Auto 0.7 K/mm3 (0.1-0.6); Monocytes Percent Auto 2.7 % (2.6-8.5); Neutrophils Absolute Auto 23.6 K/mm3 (1.3-6.7); Neutrophils Percent Auto 90.2 % (45.5-73.1); Platelet Count Result 494 k/mm3 (150-375); Red Cell Distribution Width 15.5 % (11.5-14.5); White Blood Count 26.2 K/mm3 (4.5-10.0)
[2022-01-10 17:58] LABS: Lactic Acid Reflex 1.6 mmol/L (0.7-2.1); Prothrombin Time 13.1 Seconds (11.1-14.7)
[2022-01-10 17:59] LABS: Partial Thromboplastin Time 21.4 SECONDS (22.3-36.8)
[2022-01-10 18:09] LABS: Troponin I 0.022 ng/mL (0.000-0.034)
[2022-01-10 18:14] LABS: Alanine Aminotransferase 35 U/L (4-35); Albumin Level 3.8 g/dL (3.5-5.1); Alkaline Phosphatase 162 U/L (38-126); Anion Gap 9 mmol/L (8-16); Aspartate Amino Transferase 42 U/L (14-36); Bilirubin,Total 1.1 mg/dL (0.2-1.3); Blood Urea Nitrogen 72 mg/dL (7-17); CRP 7.7 mg/dL (<1.0); Calcium 9.1 mg/dL (8.4-10.2); Carbon Dioxide 19 mmol/L (22-30); Chloride 91 mmol/L (98-107); Estimated CRCL calculation 17 ml/min; Estimated Glomerular Filt Rate 17; Glucose 147 mg/dL (65-110); Potassium 5.5 mmol/L (3.4-5.0); Sodium 119 mmol/L (137-145)
[2022-01-10] MEDS: SODIUM CHLORIDE 0.9% IV 1,000 ML 999 ML IV CONT ×2 (18:20→20:47)
[2022-01-10 19:35] LABS: Procalcitonin 0.5 ng/mL
[2022-01-10 19:43] LABS: Add Urine Microscopic? NO; Appearance Urine Clear (Clear); Bilirubin Urine Negative (Negative); Blood Urine Negative (Negative); Color Urine Yellow (Yellow); Glucose Urine UA Negative (Negative); Ketones Urine Negative (Negative); Leukocyte Esterase Ur Negative LEU/UL (Negative); Nitrate Urine Negative (Negative); Protein Urine Negative (Negative); Specific Grav Ur 1.017 (1.001-1.035); Urobilinogen Urine Negative mg/dL (<2.0)
[2022-01-10 21:41] LABS: Anion Gap 6 mmol/L (8-16); Blood Urea Nitrogen 64 mg/dL (7-17); Carbon Dioxide 19 mmol/L (22-30); Chloride 96 mmol/L (98-107); Estimated CRCL calculation 23 ml/min; Estimated Glomerular Filt Rate 23; Glucose 118 mg/dL (65-110); Sodium 121 mmol/L (137-145)
[2022-01-10] MEDS: traMADol HCL (*CRX) 50 MG TABLET PO (21:43)
[2022-01-10] MEDS: SODIUM CHLORIDE 0.9% IV 1,000 ML 100 ML IV CONT (21:54)
[2022-01-10] MEDS: ENOXAPARIN 80 MG/0.8 ML SYRINGE SUB-Q (23:26)
[2022-01-10] MEDS: MORPHINE SULFATE (*CRX) 2 MG/ML INJ 1 MG IV PUSH (23:38)
[2022-01-11] VITALS (49 sets, daily range): BP systolic 115–150; BP diastolic 43–94; PULSE 62–87; RESP 13–20; O2SAT 99–100
[2022-01-11] MEDS: traZODone HCL 50 MG TABLET PO (01:15)
--- NOTE | 2022-01-11 01:53 | PC.NURSE ---
pt denies pain at this time, refusing morphine.
[2022-01-11] MEDS: MORPHINE SULFATE (*CRX) 2 MG/ML INJ IV PUSH (03:40)
--- NOTE | 2022-01-11 03:50 | PC.NURSE ---
bilateral leg dressings changed at this time.
[2022-01-11 04:33] LABS: Anion Gap 4 mmol/L (8-16); Blood Urea Nitrogen 50 mg/dL (7-17); Calcium 8.1 mg/dL (8.4-10.2); Carbon Dioxide 19 mmol/L (22-30); Chloride 100 mmol/L (98-107); Estimated CRCL calculation 30 ml/min; Estimated Glomerular Filt Rate 32; Glucose 98 mg/dL (65-110); Potassium 4.3 mmol/L (3.4-5.0); Sodium 123 mmol/L (137-145)
== END 2022-01-11 06:36 | disposition short-term general hospital (02) ==
PROVIDERS: Emergency Provider Nurse Practitioner Family; PCP Family Medicine
DX: A41.9 Sepsis, unspecified organism (principal); E86.0 Dehydration; L03.116 Cellulitis of left lower limb; L03.115 Cellulitis of right lower limb; E87.1 Hypo-osmolality and hyponatremia; L98.8 Other specified disorders of the skin and subcutaneous tissue; I10 Essential (primary) hypertension; J45.909 Unspecified asthma, uncomplicated; F41.9 Anxiety disorder, unspecified; M19.90 Unspecified osteoarthritis, unspecified site; Z96.653 Presence of artificial knee joint, bilateral
CPT/HCPCS: 36415; 51701; 71046; 80048; 80053; 81003; 83605; 84145; 84484; 85025; 85610; 85730; 86140; 87040; 93005; 96361; 96365; 96366; 96367; 96372; 96375; 96376; 99285; A9270; J0692; J1650; J2270; J2543; J3370; J7030

== ENCOUNTER 2022-10-31 18:34 | Emergency (ER) | payer MEDICARE, MEDICAID, SELFPAY ==
[2022-10-31 18:35] VITALS: BP 168/64; PULSE 85; RESP 18; TEMP 36.3; O2SAT 100
--- NOTE | 2022-11-01 02:47 | ED.WOUNDLAC ---
HPI - Wound/Laceration General Chief Complaint: Wound/Laceration <Chapito Cruz MD - Last Filed: 11/01/22 05:03> Stated Complaint: laceration to right leg <Chapito Cruz MD - Last Filed: 11/01/22 05:03> Time Seen by Provider: 11/01/22 00:33 <Chapito Cruz MD - Last Filed: 11/01/22 05:03> History of Present Illness HPI narrative: Patient is a 67-year-old female who presents ER with laceration to her right lower extremity. She reports she was just sitting down when she noticed a bubble in her leg and it suddenly ruptured and drained. She started bleeding. Paramedics came and dressed the wound with a bandage due to bleeding. Patient has history of chronic nonhealing wounds to right lower extremity. She has history of amputation of the left lower extremity. She is recently been on Keflex for the last 2 weeks due to redness in her leg. No fevers or chills or sweats. No increased pain. <Chapito Cruz MD - Last Filed: 11/01/22 05:03> Related Data Home Medications: Home Medications Medication Instructions Recorded Confirmed lisinopril 20 1 tablet PO BID 08/11/20 03/18/21 mg-hydrochlorothiazide 12.5 mg tablet lorazepam 0.5 mg tablet 0.5 mg PO TID PRN Anxiety 08/11/20 03/18/21 ropinirole 4 mg tablet 4 mg PO HS PRN Restless Leg(S) 08/11/20 03/18/21 tramadol 50 mg tablet 50 mg PO Q6H PRN Pain (Scale Score 08/11/20 03/18/21 4-6) atenolol 50 mg tablet 50 mg PO DAILY 09/10/20 03/18/21 cyclobenzaprine 10 mg tablet 10 mg PO HS PRN BACK SPASM 09/10/20 03/18/21 diazepam 2 mg tablet 2 mg PO Q8H PRN Muscle Spasm 09/10/20 03/18/21 trazodone 50 mg tablet 50 mg PO QHS PRN 03/18/21 03/18/21 <Chapito Cruz MD - Last Filed: 11/01/22 05:03> Allergies/Adverse Reactions: Allergies Allergy/AdvReac Type Severity Reaction Status Date / Time No Known Allergies Allergy Verified 01/12/21 13:36 <Chapito Cruz MD - Last Filed: 11/01/22 05:03> Review of Systems Review of Systems: All systems reviewed & are unremarkable except as noted in HPI and below <Chapito Cruz MD - Last Filed: 11/01/22 05:03> Constitutional: Constitutional: Denies chills, Denies fatigue and Denies fever(s) <Chapito Cruz MD - Last Filed: 11/01/22 05:03> ENT: Denies nasal congestion and Denies sore throat <Chapito Cruz MD - Last Filed: 11/01/22 05:03> Cardiovascular: Cardiovascular: Denies chest pain, Denies rapid heart rate and Denies radiating jaw, neck or arm pain <Chapito Cruz MD - Last Filed: 11/01/22 05:03> Respiratory: Respiratory: Denies cough and Denies dyspnea <Chapito Cruz MD - Last Filed: 11/01/22 05:03> Gastrointestinal: Gastrointestinal: Denies abdominal pain, Denies nausea and Denies vomiting <Chapito Cruz MD - Last Filed: 11/01/22 05:03> Integumentary/Breasts: Skin/Breast: Denies pruritus, Reports erythema, Denies rash and Reports skin ulcer <Chapito Cruz MD - Last Filed: 11/01/22 05:03> Comments: Laceration <Chapito Cruz MD - Last Filed: 11/01/22 05:03> [facility] Past Medical History Medical History: Medical History (Updated 11/01/22 @ 03:54 by Chapito Cruz MD) Anxiety Arthritis Asthma Cellulitis of right leg HTN (hypertension) with goal to be determined Lymphedema of right lower extremity Patient denies significant medical history Ulcer of right leg Venous stasis ulcer of ankle with fat layer exposed with varicose veins <Chapito Cruz MD - Last Filed: 11/01/22 05:03> Surgical History Surgical History: Surgical History History of bilateral knee replacement Left 2013, right 2014 <Chapito Cruz MD - Last Filed: 11/01/22 05:03> Family History Family History: Family History Mother Cancer Father Cancer <Chapito Cruz MD - Last Filed: 11/01/22 05:03> Social History Soc
[2022-11-01 03:06] LABS: Basophils Percent Auto 0.2 % (0.2-1.2); Eosinophils Percent Auto 0.3 % (0-4.4); Hematocrit 31.3 % (37.0-47.0); Hemoglobin 9.3 g/dL (12.0-15.0); Immature Granulocyte Absolute 0.16 K/mm3 (0.00-0.031); Immature Granulocyte Percent A 1.4 % (0-0.5); Lymphocytes Absolute Auto 1.74 K/mm3 (0.9-3.2); Lymphocytes Percent Auto 15.1 % (18.3-44.2); Mean Corpuscular HGB Conc 29.7 g/dl (32-36); Mean Corpuscular Hemoglobin 24.2 pg (26-34); Mean Corpuscular Volume 81.3 fl (80-100); Mean Platelet Volume 8.8 fl (7.4-10.4); Monocytes Absolute Auto 0.9 K/mm3 (0.1-0.6); Monocytes Percent Auto 7.5 % (2.6-8.5); Neutrophils Absolute Auto 8.7 K/mm3 (1.3-6.7); Neutrophils Percent Auto 75.5 % (45.5-73.1); Platelet Count Result 277 k/mm3 (150-375); Red Blood Count 3.85 M/mm3 (4.2-5.4); Red Cell Distribution Width 17.3 % (11.5-14.5); White Blood Count 11.6 K/mm3 (4.5-10.0)
[2022-11-01 03:22] LABS: Anion Gap 3 mmol/L (8-16); Blood Urea Nitrogen 19 mg/dL (7-17); Calcium 8.6 mg/dL (8.4-10.2); Carbon Dioxide 27 mmol/L (22-30); Chloride 108 mmol/L (98-107); Estimated CRCL calculation 108 ml/min; Estimated Glomerular Filt Rate > 60; Glucose 114 mg/dL (65-110); Potassium 3.6 mmol/L (3.4-5.0); Sodium 138 mmol/L (137-145)
[2022-11-01] MEDS: DOXYCYCLINE HYCLATE 100 MG TABLET PO (04:39)
[2022-11-01 05:04] VITALS: BP 140/77; PULSE 92; RESP 18; O2SAT 98
== END 2022-11-01 05:11 | disposition home or self-care (01) ==
PROVIDERS: Emergency Provider Emergency Medicine; PCP Family Medicine
DX: S81.811A Laceration without foreign body, right lower leg, initial encounter (principal); L03.115 Cellulitis of right lower limb; I10 Essential (primary) hypertension; X58.XXXA Exposure to other specified factors, initial encounter
CPT/HCPCS: 12002; 36415; 80048; 85025; 99283; A9270

== ENCOUNTER 2023-06-01 10:06 | Inpatient (IN) | payer MEDICARE, MEDICAID, SELFPAY ==
--- NOTE | ~2023-06-01 | NM_ITS ---
EXAMINATION: NM hepatobiliary w pharm DATE: 06/03/2023 14:35 INDICATION: Nausea. Gallstones. COMPARISON: Ultrasound 06/02/2023, CT abdomen and pelvis 06/01/2023 TECHNIQUE: 5 mCi Tc-99m mebrofenin (Choletec) was administered intravenously. Scintigraphic images o f the abdomen were obtained for one hour. Then, 2 mg morphine IV was administered, and imaging was co ntinued for 30 minutes. FINDINGS: There is normal clearance of radiotracer from the blood pool. There is homogeneous tracer u ptake by the liver. Activity progresses to the bowel. There is no activity in the gallbladder. IMPRESSION: 1. Acute cholecystitis. Reviewed, dictated and finalized at location [facility]. IMPRESSION: 1. Acute cholecystitis.
--- NOTE | ~2023-06-01 | CT_ITS ---
EXAMINATION: CT abdomen pelvis w con DATE: 06/01/2023 12:14 INDICATION: Epigastric abdominal pain, nausea and vomiting for 4 months TECHNIQUE: Computed tomography (CT) of the abdomen and pelvis was performed with 100 CC Omnipaque 350 intravenous contrast. Automated exposure control and iterative reconstruction technique were employe d. Exam dose: 566.62 mGy-cm total exam DLP. COMPARISON: None. FINDINGS: Normal heart size. No pericardial or pleural effusion. Diffuse hepatic steatosis. There are multiple gallstones. No gallbladder wall thickening or pericholecystic fluid or fat strandi ng is noted. No pancreatic mass lesion or calcification. No bile duct or pancreatic duct dilatation. Normal splenic size. Normal appearance of the adrenal glands. Bilateral parapelvic renal cysts. No suspicious renal space occupying mass lesion is evident. No urin nimesh tract calculus or hydroureteronephrosis is evident. Normal caliber and atherosclerotic calcification of the abdominal aorta. Calcification of the origins of the celiac and superior mesenteric and renal arteries. No intraperitoneal or retroperitoneal or p elvic mass lesion or adenopathy or ascites. There is extensive streak artifact in the pelvic area from bilateral total hip arthroplasty. This kruse its evaluation of the urinary bladder and adnexal areas. The uterus is present. Normal appendix. No bowel obstruction, bowel wall thickening, pneumatosis or intraperitoneal free air is detected. There are multiple thoracic and lumbar fractures including prominent T9, moderately prominent T11 com pression fractures, severe T12 burst fracture, moderately severe anterior wedge compression fracture of L1. There is mild cupping of the superior vertebral endplates of L3 and L4 and to a lesser extent L5. There is grade 1 anterolisthesis at L4-5 due to degenerative change at the apophyseal joints. Status post bilateral posterior surgical fusion at L4-5. Moderate degenerative disc disease and approximately 5 mm retrolisthesis at L1-2. IMPRESSION: Diffuse hepatic steatosis Cholelithiasis Bilateral parapelvic renal cysts Status post bilateral total hip arthroplasty Normal appendix Multiple thoracic and lumbar fractures Reviewed, dictated and finalized at [facility]. Reviewed, dictated and finalized at location [facility].
--- NOTE | ~2023-06-01 | US_ITS ---
EXAMINATION: US abdomen limited DATE: 06/02/2023 08:23 INDICATION: Cholelithiasis. TECHNIQUE: Multiple grayscale and Doppler ultrasound images of the abdomen were obtained. COMPARISON: CT abdomen and pelvis 06/01/2023 FINDINGS: The visualized portions of the head and body of the pancreas are normal. There is diffuse h epatic steatosis. There is normal flow in main portal vein. The gallbladder is normal in size and con tains gallstones. No gallbladder wall thickening or sonographic Brar sign. The common duct is mary l and measures 5 mm. IMPRESSION: 1. Cholelithiasis. No evidence of acute cholecystitis. 2. Diffuse hepatic steatosis. Reviewed, dictated and finalized at location A.
[2023-06-01 10:11] VITALS: BP 111/54; PULSE 83; RESP 12; TEMP 36.6; O2SAT 98
[2023-06-01 10:40] LABS: Basophils Absolute Auto 0.1 K/mm3 (0.0-0.1); Basophils Percent Auto 0.7 % (0.2-1.2); Eosinophils Absolute Auto 0.1 K/mm3 (0-0.3); Eosinophils Percent Auto 1.7 % (0-4.4); Hemoglobin 11.2 g/dL (12.0-15.0); Immature Granulocyte Absolute 0.01 K/mm3 (0.00-0.031); Immature Granulocyte Percent A 0.1 % (0-0.5); Lymphocytes Absolute Auto 2.79 K/mm3 (0.9-3.2); Lymphocytes Percent Auto 39.9 % (18.3-44.2); Mean Corpuscular HGB Conc 31.1 g/dl (32-36); Mean Corpuscular Hemoglobin 24.6 pg (26-34); Mean Corpuscular Volume 79.1 fl (80-100); Mean Platelet Volume 9.1 fl (7.4-10.4); Monocytes Absolute Auto 0.6 K/mm3 (0.1-0.6); Monocytes Percent Auto 8.4 % (2.6-8.5); Neutrophils Absolute Auto 3.4 K/mm3 (1.3-6.7); Neutrophils Percent Auto 49.2 % (45.5-73.1); Platelet Count Result 405 k/mm3 (150-375); Red Blood Count 4.55 M/mm3 (4.2-5.4); Red Cell Distribution Width 20.2 % (11.5-14.5)
[2023-06-01 10:51] LABS: Alanine Aminotransferase 20 U/L (6-35); Albumin Level 3.4 g/dL (3.5-5.1); Alkaline Phosphatase 120 U/L (38-126); Anion Gap 11 mmol/L (8-16); Aspartate Amino Transferase 58 U/L (14-36); Bilirubin,Total 0.8 mg/dL (0.2-1.3); Blood Urea Nitrogen 4 mg/dL (7-17); Calcium 8.9 mg/dL (8.4-10.2); Carbon Dioxide 27 mmol/L (22-30); Chloride 95 mmol/L (98-107); Estimated Glomerular Filt Rate > 60; Glucose 85 mg/dL (65-110); Lipase 74 U/L (23-300); Potassium 2.7 mmol/L (3.4-5.0); Sodium 133 mmol/L (137-145)
--- NOTE | 2023-06-01 11:35 | ECG_ITS ---
Measurements Intervals [place] Rate: 77 P: 68 [place]: 139 QRS: -36 QRSD: 105 T: 131 QT: 417 QTc: 473 Interpretive Statements SINUS RHYTHM LEFT AXIS DEVIATION DELAYED PRECORDIAL R/S TRANSITION LEFT VENTRICULAR HYPERTROPHY AND ST-T CHANGE BORDERLINE ECG COMPARED TO ECG 01/10/2022 18:12:41 LEFT-AXIS DEVIATION NOW PRESENT Electronically Signed On 06-01-2023 14:44:18 CDT by Jesse Wong D.O.
--- NOTE | 2023-06-01 11:36 | ED.NAVMDI ---
HPI - Nausea/Vomiting/Diarrhea General Chief complaint: Nausea/Vomiting/Diarrhea <Hilaria Reynoso PA-C - Last Filed: 06/01/23 19:49> Stated complaint: Weight loss <Hilaria Reynoso PA-C - Last Filed: 06/01/23 19:49> Time Seen by Provider: 06/01/23 10:55 <ARA Hernández Last Filed: 06/01/23 19:49> Source: patient <ARA Hernández Last Filed: 06/01/23 19:49> Mode of arrival: EMS <ARA Hernández Last Filed: 06/01/23 19:49> Limitations: no limitations <ARA Hernández Last Filed: 06/01/23 19:49> History of Present Illness HPI Narrative: Patient is a 67-year-old female who presents ED via EMS with report of nausea and vomiting. Patient reports having persistent nausea and vomiting for the last 3 to 4 months. She states she is unable to keep down any food and has had significant weight loss. She is able to keep down some water and some white soda. She states she feels very weak and dehydrated. She did not want to bother anyone with her symptoms until she finally told her son today, which prompted her presentation. She complains of intermittent upper abdominal pain, but denies any currently. Denies fevers. Denies diarrhea, constipation, rectal bleeding, melena. Last bowel movement yesterday and normal. Denies issues with urination. Denies chest pain or shortness of breath. Patient did have a fall a few months ago and sustained a few wounds to her right lateral lower leg. This has been being monitored by home health. <ARA Hernández Last Filed: 06/01/23 19:49> Related Data Home medications: Home Medications Medication Instructions Recorded Confirmed lisinopril 20 1 tablet PO BID 08/11/20 06/01/23 mg-hydrochlorothiazide 12.5 mg tablet lorazepam 0.5 mg tablet (Ativan) 0.5 mg PO TID PRN Anxiety 08/11/20 06/01/23 ropinirole 4 mg tablet 4 mg PO HS PRN Restless Leg(S) 08/11/20 06/01/23 tramadol 50 mg tablet 50 mg PO Q6H PRN Pain (Scale Score 08/11/20 06/01/23 4-6) atenolol 50 mg tablet (Tenormin) 50 mg PO DAILY 09/10/20 06/01/23 cyclobenzaprine 10 mg tablet 10 mg PO HS PRN BACK SPASM 09/10/20 06/01/23 diazepam 2 mg tablet 2 mg PO Q8H PRN Muscle Spasm 09/10/20 06/01/23 <Hilaria Reynoso PA-C - Last Filed: 06/01/23 19:49> Allergies/Adverse reactions: Allergies Allergy/AdvReac Type Severity Reaction Status Date / Time No Known Allergies Allergy Verified 01/12/21 13:36 <Hilaria Reynoso PA-C - Last Filed: 06/01/23 19:49> Review of Systems Review of Systems: CONSTITUTIONAL: Reports generalized weakness. Denies fever, chills, or sweats. CARDIOVASCULAR: Denies chest pain. RESPIRATORY: Denies dyspnea. GASTROINTESTINAL: See HPI. GENITOURINARY: Denies dysuria or hematuria. SKIN: Denies rash or itching. MUSCULOSKELETAL: Denies back pain, joint pain, or myalgia. NEUROLOGIC: Denies headache, numbness, or weakness. <Hilaria Reynoso PA-C - Last Filed: 06/01/23 19:49> All systems reviewed & are unremarkable except as noted in HPI and below <Hilaria Reynoso PA-C - Last Filed: 06/01/23 19:49> [facility] Past Medical History Medical History: Medical History Anxiety Arthritis Asthma Cellulitis of right leg HTN (hypertension) with goal to be determined Lymphedema of right lower extremity Patient denies significant medical history Ulcer of right leg Venous stasis ulcer of ankle with fat layer exposed with varicose veins <Hilaria Reynoso PA-C - Last Filed: 06/01/23 19:49> Surgical History Surgical History: Surgical History History of bilateral knee replacement Left 2013, right 2014 <Hilaria Reynoso PA-C - Last Filed: 06/01/23 19:49> Family History Family History: Family History (Reviewed 01/10/22 @ 17:40 by Sweta Noel
[2023-06-01] MEDS: PANTOPRAZOLE SODIUM IV 40 MG VIAL IV PUSH (11:45)
[2023-06-01] MEDS: SODIUM CHLORIDE 0.9% IV 1,000 ML 999 ML IV CONT (11:45)
[2023-06-01] MEDS: ONDANSETRON INJ 4 MG/2 ML VIAL IV PUSH (11:45)
[2023-06-01 11:56] LABS: Magnesium 1.8 mg/dL (1.6-2.3)
[2023-06-01 12:14] LABS: Appearance Urine Cloudy (Clear); Bacteria Urine None Seen /hpf; Bilirubin Urine 2+ (Negative); Blood Urine Negative (Negative); Color Urine Dark Yellow (Yellow); Glucose Urine UA Negative (Negative); Hyaline Casts Urine Present /lpf; Ketones Urine 1+ mg/dL (Negative); Leukocyte Esterase Ur Trace LEU/UL (Negative); Mucus Urine Present /lpf; Need Manual Microscopic Reviewed; Nitrate Urine Negative (Negative); Non Pathogenic Casts >20; Protein Urine 2+ mg/dL (Negative); Squamous Epithelial Cell Urine Few /hpf (Few); WBC Urine 0-5 /hpf
[2023-06-01 12:23] LABS: Add Urine Microscopic? YES
[2023-06-01] MEDS: POTASSIUM CHLORIDE INJ 40 MEQ in SODIUM CHLORIDE 0.9% IV 500 ML 130 MEQ IVPB (12:23)
[2023-06-01 13:27] VITALS: PULSE 91; RESP 18; O2SAT 100
[2023-06-01 13:37] VITALS: BP 125/78
[2023-06-01 14:50] VITALS: BP 133/76; PULSE 79; RESP 16; TEMP 36.7; O2SAT 100
[2023-06-01 15:18] VITALS: BMI 23.6
--- NOTE | 2023-06-01 15:25 | ADMGEN ---
This patient, Daria Pickett, was admitted to [facility] Surg Room 313-01 at 1450. Patient/family oriented to hospital policies and general routines including ID bracelet, bed and alarms, visiting hours, pain management, procedures, bathroom and other care routines, personal items, smoking policy, room service/diet, and visiting hours. Information on how to activate the Rapid Response Team has been discussed. Patient/Family are encouraged to report perceived risks to care and to ask questions if they do not understand what they are told or what they should do.
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
[2023-06-01 17:21] LABS: Iron 60 ug/dL (37-170)
[2023-06-01 17:30] LABS: Percent Iron Saturation 26 % (20-50)
[2023-06-01] MEDS: ceFAZolin 1 GM/NS 50 ML 1 GM/50 ML BAG IVPB ×2 (17:47→21:51)
[2023-06-01 20:00] VITALS: PULSE 72; RESP 14; O2SAT 96
[2023-06-01 21:59] VITALS: BP 123/61; PULSE 72; RESP 14; TEMP 37.5; O2SAT 96
--- NOTE | 2023-06-01 22:04 | PM.IMHP ---
H&P: HPI History of Present Illness Date/Time: 06/01/23 22:04 Chief Complaint: Nausea vomiting diarrhea Narrative: This is a 67-year-old female patient who has chronic nausea vomiting without diarrhea. The patient has had this persistent nausea and vomiting for 3-4 months. Patient stated she was having difficulty keeping food down and had a significant weight loss. The patient was given a clear liquid diet in the emergency room and the patient appeared to be doing well with that diet. The patient stated that she feels very weak and dehydrated. She complains of intermittent upper abdominal pain. She denies any rectal bleeding. No hematemesis. Her last bowel movement was yesterday and she stated it was normal. CT of the abdomen was read as cholelithiasis bilateral parapelvic renal cyst status post bilateral total hip arthroplasty normal appendix multiple thoracic and lumbar fractures. Her white count is normal her H&H is 11.236.0 which was higher than 1 year ago. Her sodium was 133 and potassium 2.7. BUN 4 creatinine 0.50. The patient has a history of left [id number] amputation. She is wheelchair-bound and stated that she hit her knee and her right lower extremity on some furniture when she was moving around in her wheelchair. The patient has a wound to her right lower extremity with redness that extends from her knee down to her right foot. The patient was started on IV fluids, Protonix, Zofran, potassium chloride 40 mEq, and Ancef for cellulitis. GI has been consulted. The patient is being admitted to observation status on the date of service of 06/01/2023. Review of Systems Review of Systems: All systems reviewed & are unremarkable except as noted in HPI and below Constitutional: Constitutional: Reports as per HPI and Reports no additional constitutional complaints Eyes: Eyes: Reports as per HPI and Reports no additional eye complaints ENT: Reports system reviewed and no additional complaints, except as documented and Reports Normal hearing present Cardiovascular: Cardiovascular: Reports no additional cardiovascular complaints Respiratory: Respiratory: Reports no additional respiratory complaints and Reports no additional respiratory complaints Gastrointestinal: Gastrointestinal: Reports as per HPI and Reports no additional gastrointestinal complaints Musculoskeletal: Musculoskeletal: Reports no additional musculoskeletal complaints Integumentary/Breasts: Skin/Breast: Reports system reviewed and no additional complaints, except as docu and Reports as per HPI Neurologic: Reports system reviewed and no additional complaints, except as documented, Reports as per HPI and Reports Normal hearing present Psychiatric: Psychiatric: Reports no additional psychiatric complaints and Reports as per HPI Endocrine: Endocrine: Reports no additional endocrine complaints Hematologic/Lymphatic: Hematologic/Lymphatic: Reports no additional hematologic/lymphatic complaints Allergic/Immunologic: Allergic/Immunologic: Reports no additional allergic/immunologic complaints [facility] Past Medical History Medical History (Updated 06/02/23 @ 01:06 by Catalina Isaac NP) Anxiety Arthritis Asthma Cellulitis of right leg Depression with anxiety History of left above knee amputation HTN (hypertension) with goal to be determined Lymphedema of right lower extremity Patient denies significant medical history Ulcer of right leg Venous stasis ulcer of ankle with fat layer exposed with varicose veins Surgical History Surgical History (Updated 06/02/23 @ 00:56 by Catalina Isaac NP) H/O cataract extraction History of bilateral knee replacement Left 2013, right 2014 Family History Family History Mother Cancer Father Cancer Social History Social History (Updated 06/02/23 @ 00:57 by Catalina Isaac NP) Social History: The patient is . She lives with her son. She mandel
[2023-06-02] VITALS (8 sets, daily range): BP systolic 101–141; BP diastolic 57–86; PULSE 74–94; RESP 16–26; TEMP 36.2–36.8; O2SAT 97–100; BMI 23.6
[2023-06-02 01:58] LABS: Anion Gap 0 mmol/L (8-16); Blood Urea Nitrogen 3 mg/dL (7-17); Calcium 7.9 mg/dL (8.4-10.2); Carbon Dioxide 30 mmol/L (22-30); Chloride 103 mmol/L (98-107); Estimated CRCL calculation 71 ml/min; Estimated Glomerular Filt Rate > 60; Glucose 80 mg/dL (65-110); Potassium 2.8 mmol/L (3.4-5.0); Sodium 133 mmol/L (137-145)
[2023-06-02] MEDS: SODIUM CHLORIDE 0.9% IV 1,000 ML 100 ML IV CONT ×2 (02:18→17:10)
[2023-06-02] MEDS: POTASSIUM CHLORIDE INJ 40 MEQ in SODIUM CHLORIDE 0.9% IV 500 ML 130 MEQ IVPB ×2 (02:19→10:28)
[2023-06-02] MEDS: ceFAZolin 1 GM/NS 50 ML 1 GM/50 ML BAG IVPB ×2 (05:37→21:14)
[2023-06-02 06:22] LABS: Basophils Percent Auto 0.6 % (0.2-1.2); Eosinophils Absolute Auto 0.2 K/mm3 (0-0.3); Eosinophils Percent Auto 3.7 % (0-4.4); Hematocrit 28.2 % (37.0-47.0); Hemoglobin 8.7 g/dL (12.0-15.0); Immature Granulocyte Absolute 0.01 K/mm3 (0.00-0.031); Immature Granulocyte Percent A 0.2 % (0-0.5); Lymphocytes Absolute Auto 1.92 K/mm3 (0.9-3.2); Lymphocytes Percent Auto 37.1 % (18.3-44.2); Mean Corpuscular HGB Conc 30.9 g/dl (32-36); Mean Corpuscular Hemoglobin 24.9 pg (26-34); Mean Corpuscular Volume 80.6 fl (80-100); Mean Platelet Volume 9.1 fl (7.4-10.4); Monocytes Absolute Auto 0.5 K/mm3 (0.1-0.6); Monocytes Percent Auto 8.9 % (2.6-8.5); Neutrophils Absolute Auto 2.6 K/mm3 (1.3-6.7); Neutrophils Percent Auto 49.5 % (45.5-73.1); Platelet Count Result 267 k/mm3 (150-375); Red Cell Distribution Width 20.2 % (11.5-14.5); White Blood Count 5.2 K/mm3 (4.5-10.0)
[2023-06-02 06:37] LABS: Lactic Acid Reflex 0.9 mmol/L (0.7-2.0); Lipase 51 U/L (23-300)
[2023-06-02] MEDS: PANTOPRAZOLE SODIUM IV 40 MG VIAL IV PUSH (08:41)
[2023-06-02 09:50] LABS: Anion Gap 1 mmol/L (8-16); Blood Urea Nitrogen 3 mg/dL (7-17); Calcium 7.7 mg/dL (8.4-10.2); Carbon Dioxide 28 mmol/L (22-30); Chloride 105 mmol/L (98-107); Estimated CRCL calculation 71 ml/min; Estimated Glomerular Filt Rate > 60; Glucose 69 mg/dL (65-110); Potassium 3.2 mmol/L (3.4-5.0); Sodium 134 mmol/L (137-145)
--- NOTE | 2023-06-02 10:07 | PC.NURSE ---
Spoke with GI lab and they instructed curriculum writer to hold all PO medications due to procedure this afternoon.
--- NOTE | 2023-06-02 14:14 | WPDANESEPPF ---
Anes - Initial Pre Proc Eval Procedure: Operation Date: 06/02/23 16:30 Proposed Procedures p Esophagogastroduodenoscopy - Shant Mendez MD Date/Time: 06/02/23 14:14 Surgeon: Perry Quintana MD Pre Op Diagnosis: n/v,weakness,hypokalemia,rle cellulitis Patient Data Age: 67 Gender: F Height: 1.57 m Weight: 58.5 kg Last Vital Signs Temp 97.2 F L 06/02/23 14:07 Pulse 78 06/02/23 14:07 Resp 18 06/02/23 14:07 BP 130/60 06/02/23 14:07 Pulse Ox 99 06/02/23 14:07 O2 Del Method Room Air 06/02/23 14:07 Allergies Allergy/AdvReac Type Severity Reaction Status Date / Time No Known Allergies Allergy Verified 06/02/23 14:06 Home Medications Medication Instructions Recorded Confirmed Type lisinopril 20 1 tablet PO BID 08/11/20 06/01/23 History mg-hydrochlorothiazide 12.5 mg tablet lorazepam 0.5 mg tablet (Ativan) 0.5 mg PO TID PRN Anxiety 08/11/20 06/01/23 History ropinirole 4 mg tablet 4 mg PO HS PRN Restless Leg(S) 08/11/20 06/01/23 History tramadol 50 mg tablet 50 mg PO Q6H PRN Pain (Scale Score 08/11/20 06/01/23 History 4-6) atenolol 50 mg tablet (Tenormin) 50 mg PO DAILY 09/10/20 06/01/23 History cyclobenzaprine 10 mg tablet 10 mg PO HS PRN BACK SPASM 09/10/20 06/01/23 History diazepam 2 mg tablet 2 mg PO Q8H PRN Muscle Spasm 09/10/20 06/01/23 History Laboratory Tests 06/01/23 06/02/23 06/02/23 16:31 01:06 06:10 WBC RBC Hgb Hct MCV MCH MCHC RDW Plt Count MPV Immature Gran % (Auto) Neut % (Auto) Lymph % (Auto) [place] % (Auto) Eos % (Auto) Baso % (Auto) Lymph # (Auto) [place] # (Auto) Eos # (Auto) Baso # (Auto) Abs Immat Gran (auto) Absolute Neuts (auto) Absolute Nucleated RBC Nucleated RBC % Sodium 133 L mmol/L 134 L mmol/L (137-145) (137-145) Potassium 2.8 L* mmol/L 3.2 L mmol/L (3.4-5.0) (3.4-5.0) Chloride 103 mmol/L 105 mmol/L (98-107) (98-107) Carbon Dioxide 30 mmol/L 28 mmol/L (22-30) (22-30) Anion Gap 0 L mmol/L 1 L mmol/L (8-16) (8-16) BUN 3 L mg/dL 3 L mg/dL (7-17) (7-17) Creatinine 0.50 L mg/dL 0.50 L mg/dL (0.7-1.0) (0.7-1.0) Estim Creat Clear Calc 71 ml/min 71 ml/min Estimated GFR > 60 > 60 (59 - ) (59 - ) Glucose 80 mg/dL 69 mg/dL (65-110) (65-110) Lactic Acid Calcium 7.9 L mg/dL 7.7 L mg/dL (8.4-10.2) (8.4-10.2) Iron 60 ug/dL (37-170) TIBC 230 L ug/dL (261-462) % Saturation 26 % (20-50) Lipase 06/02/23 06:14 WBC 5.2 K/mm3 (4.5-10.0) RBC 3.50 L M/mm3 (4.2-5.4) Hgb 8.7 L g/dL (12.0-15.0) Hct 28.2 L % (37.0-47.0) MCV 80.6 fl (80-100) MCH 24.9 L pg (26-34) MCHC 30.9 L g/dl (32-36) RDW 20.2 H % (11.5-14.5) Plt Count 267 k/mm3 (150-375) MPV 9.1 fl (7.4-10.4) Immature Gran % (Auto) 0.2 % (0-0.5) Neut % (Auto) 49.5 % (45.5-73.1) Lymph % (Auto) 37.1 % (18.3-44.2) [place] % (Auto) 8.9 H % (2.6-8.5) Eos % (Auto) 3.7 % (0-4.4) Baso % (Auto) 0.6 % (0.2-1.2) Lymph # (Auto) 1.92 K/mm3 (0.9-3.2) [place] # (Auto) 0.5 K/mm3 (0.1-0.6) Eos # (Auto) 0.2 K/mm3 (0-0.3) Baso # (Auto) 0.0 K/mm3 (0.0-0.1) Abs Immat Gran (auto) 0.01 K/mm3 (0.00-0.031) Absolute Neuts (auto) 2.6 K/mm3 (1.3-6.7) Absolute Nucleated RBC 0.0 K/mm3 (0.0-0.012) Nucleated RBC % 0.0 % (0.0-0.2) Sodium Potassium Chloride Carbon Dioxide Anion Gap BUN Creatinine Estim Creat Clear Calc Estimated GFR Glucose Lactic Acid 0.9 mm
[2023-06-02] MEDS: LACTATED RINGERS 1,000 ML 150 ML IV CONT (14:16)
[2023-06-02] MEDS: ONDANSETRON INJ 4 MG/2 ML VIAL IV PUSH ×2 (14:16→18:07)
--- NOTE | 2023-06-02 16:05 | WPDPN ---
Progress Note: A&P Assessment and Plan (1) Hypokalemia: Code(s): E87.6 - Hypokalemia Status: Acute Assessment and Plan: Patient's potassium was 2.7. She was supplemented with potassium. Repeat BMP now and again in the a.m.. Magnesium level was found to be normal. Replace as necessary. 06/02/2023 interval history: Patient presented with abdominal pain nausea and vomiting, patient is seen GI and scheduled for endoscopy later today, patient states her pain has improved and denies any nausea or vomiting patient is NPO for the procedure, will follow-up and monitor. (2) Anemia: Code(s): D64.9 - Anemia, unspecified Status: Acute Assessment and Plan: Patient's H&H is at her baseline. (3) Cellulitis: Qualifiers: Laterality: unspecified laterality Site of cellulitis: extremity Site of cellulitis of extremity: lower extremity Qualified Code(s): L03.119 - Cellulitis of unspecified part of limb Code(s): L03.90 - Cellulitis, unspecified Status: Acute Assessment and Plan: The patient has some scarring and ulcerated area to right lower extremity. The patient stated this is were she continues to hit her leg with wheelchair. Patient is being treated with Unasyn. Blood cultures are pending. (4) Nausea and vomiting: Qualifiers: Vomiting type: unspecified Qualified Code(s): R11.2 - Nausea with vomiting, unspecified Code(s): R11.2 - Nausea with vomiting, unspecified Status: Acute Assessment and Plan: GI has been consulted. Continue with Protonix. Her CT scan does show some cholelithiasis may consider consulting surgery. (5) Hypertension: Qualifiers: Hypertension type: unspecified Qualified Code(s): I10 - Essential (primary) hypertension Code(s): I10 - Essential (primary) hypertension Status: Chronic Assessment and Plan: Continue with atenolol, lisinopril and hydrochlorothiazide. Continue to monitor renal function. (6) Depression with anxiety: Code(s): F41.8 - Other specified anxiety disorders Status: Acute Assessment and Plan: Continue with diazepam Subjective Date/time seen: 06/02/23 16:05 Interval history: Nausea vomiting diarrhea HPI-Narrative: This is a 67-year-old female patient who has chronic nausea vomiting without diarrhea.? The patient has had this persistent nausea and vomiting for 3-4 months.? Patient stated she was having difficulty keeping food down and had a significant weight loss.? The patient was given a clear liquid diet in the emergency room and the patient appeared to be doing well with that diet.? The patient stated that she feels very weak and dehydrated.? She complains of intermittent upper abdominal pain.? She denies any rectal bleeding.? No hematemesis.? Her last bowel movement was yesterday and she stated it was normal.? CT of the abdomen was read as cholelithiasis bilateral parapelvic renal cyst status post bilateral total hip arthroplasty normal appendix multiple thoracic and lumbar fractures.? Her white count is normal her H&H is 11.236.0 which was higher than 1 year ago.? Her sodium was 133 and potassium 2.7.? BUN 4 creatinine 0.50.? The patient has a history of left [id number] amputation.? She is wheelchair-bound and stated that she hit her knee and her right lower extremity on some furniture when she was moving around in her wheelchair.? The patient has a wound to her right lower extremity with redness that extends from her knee down to her right foot.? The patient was started on IV fluids, Protonix, Zofran, potassium chloride 40 mEq, and Ancef for cellulitis.? GI has been consulted.? 06/02/2023 interval history: Patient presented with abdominal pain nausea and vomiting, patient is seen GI and scheduled for endoscopy later today, patient states her pain has improved and denies any nausea or vomiting patient is NPO for the procedure, will follow-up and monitor.
[2023-06-02] MEDS: POTASSIUM CHLORIDE 20 MEQ ER TABLET 40 MEQ PO (17:11)
[2023-06-02] MEDS: lisinopriL 20 MG TABLET PO (17:18)
[2023-06-02] MEDS: hydroCHLOROthiazide 12.5 MG CAPSULE PO (17:18)
[2023-06-02 17:26] LABS: Anion Gap 6 mmol/L (8-16); Calcium 7.9 mg/dL (8.4-10.2); Carbon Dioxide 22 mmol/L (22-30); Chloride 107 mmol/L (98-107); Estimated CRCL calculation 86 ml/min; Estimated Glomerular Filt Rate > 60; Glucose 80 mg/dL (65-110); Magnesium 1.7 mg/dL (1.6-2.3); Potassium 3.9 mmol/L (3.4-5.0); Sodium 135 mmol/L (137-145)
[2023-06-02 22:17] LABS: Blood Urea Nitrogen < 2 mg/dL (7-17)
[2023-06-03 05:13] VITALS: BP 127/69; PULSE 74; RESP 14; TEMP 36.6; O2SAT 97
[2023-06-03] MEDS: ceFAZolin 1 GM/NS 50 ML 1 GM/50 ML BAG IVPB ×3 (05:30→21:11)
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
[2023-06-03 07:40] LABS: Hemoglobin 9.2 g/dL (12.0-15.0); Mean Corpuscular HGB Conc 30.7 g/dl (32-36); Mean Corpuscular Hemoglobin 25.1 pg (26-34); Mean Platelet Volume 9.2 fl (7.4-10.4); Platelet Count Result 288 k/mm3 (150-375); Red Blood Count 3.66 M/mm3 (4.2-5.4); Red Cell Distribution Width 20.6 % (11.5-14.5)
[2023-06-03 07:55] LABS: Anion Gap 4 mmol/L (8-16); Calcium 7.7 mg/dL (8.4-10.2); Carbon Dioxide 25 mmol/L (22-30); Chloride 107 mmol/L (98-107); Estimated CRCL calculation 86 ml/min; Estimated Glomerular Filt Rate > 60; Glucose 72 mg/dL (65-110); Magnesium 1.5 mg/dL (1.6-2.3); Potassium 3.3 mmol/L (3.4-5.0); Sodium 136 mmol/L (137-145)
[2023-06-03] MEDS: SODIUM CHLORIDE 0.9% IV 1,000 ML 100 ML IV CONT ×2 (08:23→16:32)
[2023-06-03 08:24] VITALS: PULSE 68
[2023-06-03] MEDS: atenoloL 50 MG TABLET PO (08:24)
[2023-06-03] MEDS: ENOXAPARIN 40 MG/0.4 ML SYRINGE SUB-Q (08:24)
[2023-06-03] MEDS: PANTOPRAZOLE SODIUM IV 40 MG VIAL IV PUSH (08:24)
[2023-06-03] MEDS: lisinopriL 20 MG TABLET PO ×2 (08:25→16:32)
[2023-06-03] MEDS: LORazepam (*CRX) 0.5 MG TABLET PO (09:11)
[2023-06-03] MEDS: hydroCHLOROthiazide 12.5 MG CAPSULE PO ×2 (09:11→16:30)
[2023-06-03] MEDS: POTASSIUM CHLORIDE 20 MEQ PACKET (FOR LIQUID) 40 MEQ PO (09:11)
[2023-06-03] MEDS: MAGNESIUM SULF 2 GM/WATER 50ML 2 GM/50 ML BAG IVPB (09:11)
[2023-06-03] MEDS: MAGNESIUM OXIDE 400 MG TABLET PO (09:11)
[2023-06-03 09:57] LABS: Blood Urea Nitrogen < 2 mg/dL (7-17)
--- NOTE | 2023-06-03 11:17 | PCSTNOTE ---
Therapist spoke with LISA Acevedo, who reports patient must be NPO for 4 hours prior to a scan and therefore swallow evaluation cannot be completed at this time. She states patient has history of GERD but also has been stating she has been having difficulty swallowing. Therapist will check in with RN later today to see if assessment can be completed today or if it will need to wait until tomorrow.
[2023-06-03] MEDS: ONDANSETRON INJ 4 MG/2 ML VIAL IV PUSH ×2 (12:30→18:04)
--- NOTE | 2023-06-03 12:40 | PC.NURSE ---
Pt transported to [facility] for HIDA scan by bed at approximately 1230.
--- NOTE | 2023-06-03 13:23 | PM.PNGS ---
Progress Note: A&P Assessment and Plan (1) Nausea and vomiting: Qualifiers: Vomiting type: unspecified Qualified Code(s): R11.2 - Nausea with vomiting, unspecified Code(s): R11.2 - Nausea with vomiting, unspecified Status: Chronic Assessment and Plan: Associated with generalized abdominal pain but no epigastric or right upper quadrant pain. She had an EGD which was negative. She seems to be able to take liquids pretty well but has trouble with solid food. Her history does not sound much like gallbladder but pending HIDA scan to better evaluate. (2) Cholelithiasis: Code(s): K80.20 - Calculus of gallbladder without cholecystitis without obstruction Status: Chronic Assessment and Plan: No signs cholecystitis on imaging. HIDA scan ordered but has not been done as yet. Subjective Subjective Date/Time Seen: 06/03/23 13:23 Patient reports: no new complaints, still having pain (Some oatmeal from this morning caused stomach upset) and afebrile Review of Systems Review of Systems: All systems reviewed & are unremarkable except as noted in HPI and below (HPI) Exam Const: General: comfortable, no acute distress, alert and awake Nutritional Appearance: thin Orientation/consciousness: No confusion GI: Inspection: normal to inspection, non-distended and scar GI Palp: Yes Soft to palpation, No Tenderness to palpation present (GI), No Guarding due to palpation present (GI), No Hernia present, No Palpable mass present, No Ascites present and No Rebound tenderness present Auscultation: normal bowel sounds Neuro: General: no focal motor deficits Extrem: General: no calf tenderness and no edema Objective Data Vital Signs Vital Signs: Vital Signs - 24 hr 06/02/23 14:07 06/02/23 15:26 06/02/23 15:36 Temperature 36.2 C L Pulse Rate 78 86 80 Respiratory Rate 18 26 H 23 H Blood Pressure 130/60 101/57 L 121/80 Pulse Oximetry 99 98 97 Oxygen Delivery Room Air Room Air Room Air 06/02/23 15:53 06/02/23 15:44 06/02/23 21:35 Temperature 36.4 C Pulse Rate 86 79 94 Respiratory Rate 20 20 16 Blood Pressure 141/83 H 128/76 128/86 Pulse Oximetry 100 99 98 Oxygen Delivery Room Air Room Air 06/02/23 20:00 06/03/23 05:13 06/03/23 08:24 Temperature 36.6 C Pulse Rate 94 74 68 Respiratory Rate 16 14 Blood Pressure 127/69 Pulse Oximetry 98 97 Oxygen Delivery Room Air 06/03/23 08:00 Temperature Pulse Rate Respiratory Rate Blood Pressure Pulse Oximetry Oxygen Delivery Room Air Intake/Output Intake/Output: Intake & Output 05/31/23 06/01/23 06/02/23 06/03/23 23:59 23:59 23:59 23:59 Intake Total 460 2440 1980 Output Total 300 1100 1000 Balance 160 1340 980 Meds/Results Medications: Active Medications Generic Name Dose Route Start Last Admin Trade Name Freq PRN Reason Stop Dose Admin Atenolol 50 mg 06/02/23 09:00 06/03/23 08:24 Atenolol 50 Mg Tablet PO 50 mg DAILY LISANDRA Administration Cyclobenzaprine HCl 10 mg 06/02/23 01:06 Cyclobenzaprine Hcl 10 Mg Tablet PO HS PRN BACK SPASM Diazepam 2 mg 06/02/23 01:06 Diazepam (*Crx) 2 Mg Tablet PO Q8H PRN Muscle Spasm Enoxaparin Sodium 40 mg 06/02/23 09:00 06/03/23 08:24 Enoxaparin 40 Mg/0.4 Ml Syringe SUB-Q 40 mg DAILY LISANDRA Administration Hydrochlorothiazide 12.5 mg 06/02/23 09:00 06/03/23 09:11 Hydrochlorothiazide 12.5 Mg Capsule PO 12.5 mg BID LISANDRA Administration Cefazolin Sodium 1 gm in 50 mls @ 100 mls/hr 06/01/23 16:25 06/03/23 08:54 Ancef 1 Gm/Ns 50 Ml IVPB Infused Q8HR LISANDRA Infusion Sodium Chloride 1,000 mls @ 100 mls/hr 06/02/23 00:50 06/03/23 12:30 Normal Saline Iv IV CONT 0 mls/hr .Q10H LISANDRA Infusion Lisinopril 20 mg 06/02/23 09:00 06/03/23 08:25 Lisinopril 20 Mg Tablet PO 20 mg BID LISANDRA Administration Lorazepam 0.5 mg 06/02/23 01:06 06/03/23 09:11 Lorazepam (*Crx) 0.5 Mg Table
[2023-06-03] MEDS: MORPHINE SULFATE (*CRX) 2 MG/ML INJ IV PUSH (13:47)
[2023-06-03 14:28] VITALS: BP 124/80; PULSE 72; RESP 18; TEMP 36.4; O2SAT 98
--- NOTE | 2023-06-03 14:54 | WPDPN ---
Progress Note: A&P Assessment and Plan (1) Hypokalemia: Code(s): E87.6 - Hypokalemia Status: Acute Assessment and Plan: Patient's potassium was 2.7. She was supplemented with potassium. Repeat BMP now and again in the a.m.. Magnesium level was found to be normal. Replace as necessary. 06/03/2023 interval history: Patient presented with abdominal pain nausea and vomiting, patient was seen GI and had endoscopy on 06/02 which showed nonerosive gastritis, today patient stats her nausea and vomiting has improved, patient with hypokalemia most likley due to vomiting and poor intake, will suppplemnet and monitor, patient states her pain has improved and denies any nausea or vomiting patient is tolerating her diet, will follow-up and monitor. (2) Anemia: Code(s): D64.9 - Anemia, unspecified Status: Acute Assessment and Plan: Patient's H&H is at her baseline. (3) Cellulitis: Qualifiers: Laterality: unspecified laterality Site of cellulitis: extremity Site of cellulitis of extremity: lower extremity Qualified Code(s): L03.119 - Cellulitis of unspecified part of limb Code(s): L03.90 - Cellulitis, unspecified Status: Acute Assessment and Plan: The patient has some scarring and ulcerated area to right lower extremity. The patient stated this is were she continues to hit her leg with wheelchair. Patient is being treated with Unasyn. Blood cultures are pending. (4) Nausea and vomiting: Qualifiers: Vomiting type: unspecified Qualified Code(s): R11.2 - Nausea with vomiting, unspecified Code(s): R11.2 - Nausea with vomiting, unspecified Status: Chronic Assessment and Plan: GI has been consulted. Continue with Protonix. Her CT scan does show some cholelithiasis may consider consulting surgery. (5) Hypertension: Qualifiers: Hypertension type: unspecified Qualified Code(s): I10 - Essential (primary) hypertension Code(s): I10 - Essential (primary) hypertension Status: Chronic Assessment and Plan: Continue with atenolol, lisinopril and hydrochlorothiazide. Continue to monitor renal function. (6) Depression with anxiety: Code(s): F41.8 - Other specified anxiety disorders Status: Acute Assessment and Plan: Continue with diazepam Subjective Date/time seen: 06/03/23 14:54 Interval history: Nausea vomiting diarrhea HPI-Narrative: This is a 67-year-old female patient who has chronic nausea vomiting without diarrhea.? The patient has had this persistent nausea and vomiting for 3-4 months.? Patient stated she was having difficulty keeping food down and had a significant weight loss.? The patient was given a clear liquid diet in the emergency room and the patient appeared to be doing well with that diet.? The patient stated that she feels very weak and dehydrated.? She complains of intermittent upper abdominal pain.? She denies any rectal bleeding.? No hematemesis.? Her last bowel movement was yesterday and she stated it was normal.? CT of the abdomen was read as cholelithiasis bilateral parapelvic renal cyst status post bilateral total hip arthroplasty normal appendix multiple thoracic and lumbar fractures.? Her white count is normal her H&H is 11.236.0 which was higher than 1 year ago.? Her sodium was 133 and potassium 2.7.? BUN 4 creatinine 0.50.? The patient has a history of left [id number] amputation.? She is wheelchair-bound and stated that she hit her knee and her right lower extremity on some furniture when she was moving around in her wheelchair.? The patient has a wound to her right lower extremity with redness that extends from her knee down to her right foot.? The patient was started on IV fluids, Protonix, Zofran, potassium chloride 40 mEq, and Ancef for cellulitis.? GI has been consulted.? 06/03/2023 interval history: Patient presented with abdominal pain nausea and vomiting, patient was
--- NOTE | 2023-06-03 14:55 | PC.NURSE ---
Pt returned from nuclear medicine for HIDA scan approximately 1430.
[2023-06-03 20:00] VITALS: PULSE 72; RESP 18; O2SAT 98
[2023-06-03 21:45] VITALS: BP 122/71; PULSE 62; RESP 18; TEMP 36; O2SAT 100
[2023-06-04] MEDS: SODIUM CHLORIDE 0.9% IV 1,000 ML 100 ML IV CONT ×2 (02:24→12:42)
[2023-06-04] MEDS: ceFAZolin 1 GM/NS 50 ML 1 GM/50 ML BAG IVPB ×3 (05:10→21:07)
[2023-06-04 06:00] VITALS: BP 140/72; PULSE 65; RESP 20; TEMP 36.5; O2SAT 99
[2023-06-04] MEDS: ONDANSETRON INJ 4 MG/2 ML VIAL IV PUSH ×2 (06:09→10:22)
[2023-06-04 06:51] LABS: Hematocrit 29.4 % (37.0-47.0); Mean Corpuscular HGB Conc 30.6 g/dl (32-36); Mean Corpuscular Volume 81.7 fl (80-100); Mean Platelet Volume 8.8 fl (7.4-10.4); Platelet Count Result 262 k/mm3 (150-375); Red Cell Distribution Width 20.5 % (11.5-14.5); White Blood Count 4.8 K/mm3 (4.5-10.0)
[2023-06-04 06:56] LABS: Anion Gap 4 mmol/L (8-16); Calcium 7.4 mg/dL (8.4-10.2); Carbon Dioxide 25 mmol/L (22-30); Chloride 107 mmol/L (98-107); Estimated CRCL calculation 71 ml/min; Estimated Glomerular Filt Rate > 60; Glucose 83 mg/dL (65-110); Sodium 136 mmol/L (137-145)
[2023-06-04 07:05] LABS: Blood Urea Nitrogen < 2 mg/dL (7-17)
[2023-06-04] MEDS: hydroCHLOROthiazide 12.5 MG CAPSULE PO ×2 (08:32→16:11)
[2023-06-04] MEDS: LORazepam (*CRX) 0.5 MG TABLET PO (08:32)
[2023-06-04] MEDS: atenoloL 50 MG TABLET PO (08:32)
[2023-06-04] MEDS: MAGNESIUM OXIDE 400 MG TABLET PO (08:32)
[2023-06-04] MEDS: lisinopriL 20 MG TABLET PO ×2 (08:32→16:11)
[2023-06-04] MEDS: ENOXAPARIN 40 MG/0.4 ML SYRINGE SUB-Q (08:32)
[2023-06-04] MEDS: PANTOPRAZOLE SODIUM IV 40 MG VIAL IV PUSH (08:32)
[2023-06-04] MEDS: POTASSIUM CHLORIDE 20 MEQ ER TABLET 40 MEQ PO ×2 (08:44→16:11)
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
--- NOTE | 2023-06-04 13:25 | PM.PNGS ---
Progress Note: A&P Assessment and Plan (1) Acute cholecystitis: Code(s): K81.0 - Acute cholecystitis Status: Acute Assessment and Plan: Patient is still having some mild right upper quadrant pain. Continue on IV antibiotics. HIDA scan shows no uptake of tracer into the gallbladder suggestive of acute cholecystitis or severe chronic cholecystitis. White blood count is normal vital signs are stable. Clinically she has no evidence of acute surgical abdomen. Will keep her on full liquids for right now. Possible surgery for removing her gallbladder early this coming week. We will defer timing to Dr. Bates. (2) Cholelithiasis: Code(s): K80.20 - Calculus of gallbladder without cholecystitis without obstruction Status: Chronic Assessment and Plan: Appears to be causing acute cholecystitis. Recommend laparoscopic cholecystectomy in the near future. Dr. Bates to determine timing. Subjective Subjective Date/Time Seen: 06/04/23 13:25 Interval history: Patient sitting up in bed trying to eat some full liquids. Does not like the chicken noodle soup. Requesting tomato soup. States that the right upper quadrant pain is about the same as yesterday. Some slight nausea for which she received some Zofran. White blood cell count remains normal. No fevers. Liver enzymes are stable as well. HIDA scan was done yesterday showing no uptake of radioactive material into the gallbladder suggestive of cystic duct obstruction and acute cholecystitis. Review of Systems Review of Systems: The remainder of the review of systems to include constitutional, HEENT, cardiovascular, respiratory, GI, , integumentary, musculoskeletal, endocrine, immunologic, hematologic, psychiatric, and neurologic are all negative except for which is mentioned above in the HPI. Exam Const: General: comfortable and no acute distress Eyes: Sclera: sclerae normal Pupils: Equal, round and reactive pupils present Neck: Neck: supple and no JVD Resp: Effort & Inspection: normal respiratory effort Auscultation: clear to auscultation bilaterally Cardio: Rate: regular rate Rhythm: regular rhythm GI: Other: Abdomen is soft and nondistended. She has some mild tenderness to palpation in the epigastric and right a car upper quadrant regions of the abdomen. No peritoneal signs noted. Gallbladder is not palpable. Neuro: Speech: normal speech Sensory Exam: normal sensation Psych: Mental Status: mental status grossly normal Affect: normal affect Objective Data Vital Signs Vital Signs: Vital Signs - 24 hr 06/03/23 14:28 06/03/23 20:00 06/03/23 21:45 Temperature 36.4 C 36.0 C L Pulse Rate 72 72 62 Respiratory Rate 18 18 18 Blood Pressure 124/80 122/71 Pulse Oximetry 98 98 100 Oxygen Delivery Room Air 06/04/23 06:00 06/04/23 08:30 Temperature 36.5 C Pulse Rate 65 Respiratory Rate 20 Blood Pressure 140/72 Pulse Oximetry 99 Oxygen Delivery Room Air Intake/Output Intake/Output: Intake & Output 06/01/23 06/02/23 06/03/23 06/04/23 23:59 23:59 23:59 23:59 Intake Total 460 2440 3590 2950 Output Total 300 1100 1300 400 Balance 160 1340 2290 2550 Meds/Results Medications: Active Medications Generic Name Dose Route Start Last Admin Trade Name Freq PRN Reason Stop Dose Admin Atenolol 50 mg 06/02/23 09:00 06/04/23 08:32 Atenolol 50 Mg Tablet PO 50 mg DAILY LISANDRA Administration Cyclobenzaprine HCl 10 mg 06/02/23 01:06 Cyclobenzaprine Hcl 10 Mg Tablet PO HS PRN BACK SPASM Diazepam 2 mg 06/02/23 01:06 Diazepam (*Crx) 2 Mg Tablet PO Q8H PRN Muscle Spasm Enoxaparin Sodium 40 mg 06/02/23 09:00 06/04/23 08:32 Enoxaparin 40 Mg/0.4 Ml Syringe SUB-Q 40 mg DAILY LISANDRA Administration Hydrochlorothiazide 12.5 mg 06/02/23 09:00 06/04/23 08:32 Hydrochlorothiazide 12.5 Mg Capsule PO 12.5 mg BID LISANDRA Administration Cefazolin Sodium 1 gm
[2023-06-04 14:00] VITALS: BP 138/78; PULSE 62; RESP 18; TEMP 36.9; O2SAT 100
--- NOTE | 2023-06-04 14:49 | PCSTNOTE ---
Bedside swallowing evaluation. Patient seen in bed positioned upright with head of bed elevated. Oral peripheral examination results within functional limits. Per nursing, patient requests medications be crushed and put in applesauce because she feels nauseated and sometimes vomits after swallowing anything but thin liquids. Patient demonstrated swallowing functional abilities within normal limits for thin liquids by straw, no signs of penetration or aspiration. Recommendation: reevaluate swallowing when patient can participate fully (when nausea and vomiting are controlled). No further recommendations at this time. Thank you for the referral of this patient.
--- NOTE | 2023-06-04 16:28 | WPDPN ---
Progress Note: A&P Assessment and Plan (1) Hypokalemia: Code(s): E87.6 - Hypokalemia Status: Acute Assessment and Plan: Patient's potassium was 2.7. She was supplemented with potassium. Repeat BMP now and again in the a.m.. Magnesium level was found to be normal. Replace as necessary. 06/04/2023 interval history: Patient presented with abdominal pain nausea and vomiting, patient was seen GI and had endoscopy on 06/02 which showed nonerosive gastritis, today patient stats her nausea and vomiting has improved, however patient is refusing to eat or take her medication in fear of vomiting, patient was not able to complete her bedside swallow study, patient with hypokalemia most likley due to vomiting and poor intake, will suppplemnet and monitor, patient states her pain has improved and denies any nausea or vomiting patient is tolerating her diet, will follow-up and monitor. (2) Anemia: Code(s): D64.9 - Anemia, unspecified Status: Acute Assessment and Plan: Patient's H&H is at her baseline. (3) Cellulitis: Qualifiers: Laterality: unspecified laterality Site of cellulitis: extremity Site of cellulitis of extremity: lower extremity Qualified Code(s): L03.119 - Cellulitis of unspecified part of limb Code(s): L03.90 - Cellulitis, unspecified Status: Acute Assessment and Plan: The patient has some scarring and ulcerated area to right lower extremity. The patient stated this is were she continues to hit her leg with wheelchair. Patient is being treated with Unasyn. Blood cultures are pending. (4) Nausea and vomiting: Qualifiers: Vomiting type: unspecified Qualified Code(s): R11.2 - Nausea with vomiting, unspecified Code(s): R11.2 - Nausea with vomiting, unspecified Status: Chronic Assessment and Plan: GI has been consulted. Continue with Protonix. Her CT scan does show some cholelithiasis may consider consulting surgery. (5) Hypertension: Qualifiers: Hypertension type: unspecified Qualified Code(s): I10 - Essential (primary) hypertension Code(s): I10 - Essential (primary) hypertension Status: Chronic Assessment and Plan: Continue with atenolol, lisinopril and hydrochlorothiazide. Continue to monitor renal function. (6) Depression with anxiety: Code(s): F41.8 - Other specified anxiety disorders Status: Acute Assessment and Plan: Continue with diazepam Subjective Date/time seen: 06/04/23 16:28 Interval history: Nausea vomiting diarrhea HPI-Narrative: This is a 67-year-old female patient who has chronic nausea vomiting without diarrhea.? The patient has had this persistent nausea and vomiting for 3-4 months.? Patient stated she was having difficulty keeping food down and had a significant weight loss.? The patient was given a clear liquid diet in the emergency room and the patient appeared to be doing well with that diet.? The patient stated that she feels very weak and dehydrated.? She complains of intermittent upper abdominal pain.? She denies any rectal bleeding.? No hematemesis.? Her last bowel movement was yesterday and she stated it was normal.? CT of the abdomen was read as cholelithiasis bilateral parapelvic renal cyst status post bilateral total hip arthroplasty normal appendix multiple thoracic and lumbar fractures.? Her white count is normal her H&H is 11.236.0 which was higher than 1 year ago.? Her sodium was 133 and potassium 2.7.? BUN 4 creatinine 0.50.? The patient has a history of left [id number] amputation.? She is wheelchair-bound and stated that she hit her knee and her right lower extremity on some furniture when she was moving around in her wheelchair.? The patient has a wound to her right lower extremity with redness that extends from her knee down to her right foot.? The patient was started on IV fluids, Protonix, Zofran, potassium chloride 40 mEq, and Ancef for
[2023-06-04 20:00] VITALS: PULSE 62; RESP 18; O2SAT 100
[2023-06-04 21:57] VITALS: BP 132/64; PULSE 52; RESP 18; TEMP 36.1; O2SAT 98
[2023-06-05] MEDS: ceFAZolin 1 GM/NS 50 ML 1 GM/50 ML BAG IVPB ×3 (05:14→21:06)
[2023-06-05 06:00] VITALS: BP 129/71; PULSE 67; RESP 18; TEMP 36.4; O2SAT 95
[2023-06-05 07:20] LABS: Hematocrit 30.7 % (37.0-47.0); Hemoglobin 9.4 g/dL (12.0-15.0); Mean Corpuscular HGB Conc 30.6 g/dl (32-36); Mean Corpuscular Hemoglobin 24.9 pg (26-34); Mean Corpuscular Volume 81.2 fl (80-100); Mean Platelet Volume 9.1 fl (7.4-10.4); Platelet Count Result 301 k/mm3 (150-375); Red Blood Count 3.78 M/mm3 (4.2-5.4); Red Cell Distribution Width 20.6 % (11.5-14.5)
[2023-06-05 07:34] LABS: Anion Gap 5 mmol/L (8-16); Calcium 7.5 mg/dL (8.4-10.2); Carbon Dioxide 24 mmol/L (22-30); Chloride 107 mmol/L (98-107); Estimated CRCL calculation 86 ml/min; Estimated Glomerular Filt Rate > 60; Glucose 69 mg/dL (65-110); Magnesium 1.8 mg/dL (1.6-2.3); Potassium 2.7 mmol/L (3.4-5.0); Sodium 136 mmol/L (137-145)
[2023-06-05 07:56] LABS: Blood Urea Nitrogen < 2 mg/dL (7-17)
[2023-06-05] MEDS: POTASSIUM CHLORIDE 20 MEQ ER TABLET 40 MEQ PO (08:27)
[2023-06-05] MEDS: ENOXAPARIN 40 MG/0.4 ML SYRINGE SUB-Q (08:28)
[2023-06-05] MEDS: atenoloL 50 MG TABLET PO (08:28)
[2023-06-05] MEDS: PANTOPRAZOLE SODIUM IV 40 MG VIAL IV PUSH (08:28)
[2023-06-05] MEDS: hydroCHLOROthiazide 12.5 MG CAPSULE PO ×2 (08:28→16:54)
[2023-06-05] MEDS: ONDANSETRON INJ 4 MG/2 ML VIAL IV PUSH (08:28)
[2023-06-05] MEDS: SODIUM CHLORIDE 0.9% IV 1,000 ML 100 ML IV CONT ×2 (08:29→17:34)
[2023-06-05] MEDS: MAGNESIUM OXIDE 400 MG TABLET PO (08:29)
[2023-06-05] MEDS: lisinopriL 20 MG TABLET PO ×2 (08:29→16:54)
[2023-06-05] MEDS: POTASSIUM CHLORIDE INJ 40 MEQ in SODIUM CHLORIDE 0.9% IV 500 ML 130 MEQ IVPB (08:50)
--- NOTE | 2023-06-05 12:08 | PM.PNGS ---
Progress Note: A&P Assessment and Plan (1) Acute cholecystitis: Code(s): K81.0 - Acute cholecystitis Status: Acute Assessment and Plan: Patient remains clinically stable. HIDA scan showed no uptake into the gallbladder suggesting obstruction the cystic duct and at least chronic cholecystitis of if not acute cholecystitis. Continue present management. Dr. Bates will evaluate the patient tomorrow for possible cholecystectomy during this admission. Subjective Subjective Date/Time Seen: 06/05/23 12:08 Interval history: Patient remains clinically stable. No severe pain today. Likes eating her full liquid diet now that she got some tomato soup. Potassium is low today she is getting IV potassium replacement. Exam GI: Other: Abdomen soft and nondistended. Minimal tenderness right upper quadrant. No rebound. Objective Data Vital Signs Vital Signs: Vital Signs - 24 hr 06/04/23 14:00 06/04/23 20:00 06/04/23 21:57 Temperature 36.9 C 36.1 C L Pulse Rate 62 62 52 L Respiratory Rate 18 18 18 Blood Pressure 138/78 132/64 Pulse Oximetry 100 100 98 Oxygen Delivery Room Air 06/05/23 06:00 06/05/23 08:25 Temperature 36.4 C L Pulse Rate 67 Respiratory Rate 18 Blood Pressure 129/71 Pulse Oximetry 95 Oxygen Delivery Room Air Intake/Output Intake/Output: Intake & Output 06/02/23 06/03/23 06/04/23 06/05/23 23:59 23:59 23:59 23:59 Intake Total 2440 3590 4240 1670 Output Total 1100 8428 416 0131 Balance 1340 2290 3315 -130 Meds/Results Medications: Active Medications Generic Name Dose Route Start Last Admin Trade Name Freq PRN Reason Stop Dose Admin Atenolol 50 mg 06/02/23 09:00 06/05/23 08:28 Atenolol 50 Mg Tablet PO 50 mg DAILY LISANDRA Administration Cyclobenzaprine HCl 10 mg 06/02/23 01:06 Cyclobenzaprine Hcl 10 Mg Tablet PO HS PRN BACK SPASM Diazepam 2 mg 06/02/23 01:06 Diazepam (*Crx) 2 Mg Tablet PO Q8H PRN Muscle Spasm Enoxaparin Sodium 40 mg 06/02/23 09:00 06/05/23 08:28 Enoxaparin 40 Mg/0.4 Ml Syringe SUB-Q 40 mg DAILY LISANDRA Administration Hydrochlorothiazide 12.5 mg 06/02/23 09:00 06/05/23 08:28 Hydrochlorothiazide 12.5 Mg Capsule PO 12.5 mg BID LISANDRA Administration Cefazolin Sodium 1 gm in 50 mls @ 100 mls/hr 06/01/23 16:25 06/05/23 07:17 Ancef 1 Gm/Ns 50 Ml IVPB Infused Q8HR LISANDRA Infusion Sodium Chloride 1,000 mls @ 100 mls/hr 06/02/23 00:50 06/05/23 08:29 Normal Saline Iv IV CONT 100 mls/hr .Q10H LISANDRA Administration Potassium Chloride 40 meq/ 520 mls @ 130 mls/hr 06/05/23 08:13 06/05/23 08:52 Sodium Chloride IVPB 06/05/23 12:12 100 mls/hr ONCE ONE Infusion Lisinopril 20 mg 06/02/23 09:00 06/05/23 08:29 Lisinopril 20 Mg Tablet PO 20 mg BID LISANDRA Administration Lorazepam 0.5 mg 06/02/23 01:06 06/04/23 08:32 Lorazepam (*Crx) 0.5 Mg Tablet PO 0.5 mg TID PRN Administration Anxiety Magnesium Oxide 400 mg 06/03/23 09:00 06/05/23 08:29 Magnesium Oxide 400 Mg Tablet PO 400 mg QAM LISANDRA Administration Ondansetron HCl 4 mg 06/01/23 13:50 06/05/23 08:28 Ondansetron Inj 4 Mg/2 Ml Vial IV PUSH 4 mg Q4H PRN Administration Nausea Pantoprazole Sodium 40 mg 06/02/23 09:00 06/05/23 08:28 Pantoprazole Sodium Iv 40 Mg Vial IV PUSH 40 mg QAM LISANDRA Administration Ropinirole HCl 4 mg 06/02/23 01:06 Ropinirole Hcl 1 Mg Tablet PO HS PRN Restless Leg(S) Tramadol HCl 50 mg 06/02/23 01:06 Tramadol Hcl (*Crx) 50 Mg Tablet PO Q6H PRN Pain (Scale Score 4-6) Radiology Results: ITS Impressions Abdomen/Pelvis CT 06/01/23 12:15 IMPRESSION: Diffuse hepatic steatosis Cholelithiasis Bilateral parapelvic renal cysts Status post bilateral total hip arthroplasty Normal appendix Multiple thoracic and lumbar fractures ADDENDUM: 06/01/23 1249 Comparison to 11/09/2019 lumbar spine reveals n
--- NOTE | 2023-06-05 12:21 | WPDPN ---
Progress Note: A&P Assessment and Plan (1) Hypokalemia: Code(s): E87.6 - Hypokalemia Status: Acute Assessment and Plan: Patient's potassium was 2.7. She was supplemented with potassium. Repeat BMP now and again in the a.m.. Magnesium level was found to be normal. Replace as necessary. 06/05/2023 interval history: Patient presented with abdominal pain nausea and vomiting, patient was seen GI and had endoscopy on 06/02 which showed nonerosive gastritis, today patient stats her nausea and vomiting has improved, however patient is refusing to eat or take her medication in fear of vomiting, patient was not able to complete her bedside swallow study, today patient is agreeable to eat and take her medications, [facility] staff are helping, patient with hypokalemia most likley due to vomiting and poor intake, will suppplemnet and monitor, patient states her pain has improved and denies any nausea or vomiting patient is tolerating her diet, will follow-up and monitor. (2) Anemia: Code(s): D64.9 - Anemia, unspecified Status: Acute Assessment and Plan: Patient's H&H is at her baseline. (3) Cellulitis: Qualifiers: Laterality: unspecified laterality Site of cellulitis: extremity Site of cellulitis of extremity: lower extremity Qualified Code(s): L03.119 - Cellulitis of unspecified part of limb Code(s): L03.90 - Cellulitis, unspecified Status: Acute Assessment and Plan: The patient has some scarring and ulcerated area to right lower extremity. The patient stated this is were she continues to hit her leg with wheelchair. Patient is being treated with Unasyn. Blood cultures are pending. (4) Nausea and vomiting: Qualifiers: Vomiting type: unspecified Qualified Code(s): R11.2 - Nausea with vomiting, unspecified Code(s): R11.2 - Nausea with vomiting, unspecified Status: Chronic Assessment and Plan: GI has been consulted. Continue with Protonix. Her CT scan does show some cholelithiasis may consider consulting surgery. (5) Hypertension: Qualifiers: Hypertension type: unspecified Qualified Code(s): I10 - Essential (primary) hypertension Code(s): I10 - Essential (primary) hypertension Status: Chronic Assessment and Plan: Continue with atenolol, lisinopril and hydrochlorothiazide. Continue to monitor renal function. (6) Depression with anxiety: Code(s): F41.8 - Other specified anxiety disorders Status: Acute Assessment and Plan: Continue with diazepam Subjective Date/time seen: 06/05/23 12:21 Interval history: Nausea vomiting diarrhea HPI-Narrative: This is a 67-year-old female patient who has chronic nausea vomiting without diarrhea.? The patient has had this persistent nausea and vomiting for 3-4 months.? Patient stated she was having difficulty keeping food down and had a significant weight loss.? The patient was given a clear liquid diet in the emergency room and the patient appeared to be doing well with that diet.? The patient stated that she feels very weak and dehydrated.? She complains of intermittent upper abdominal pain.? She denies any rectal bleeding.? No hematemesis.? Her last bowel movement was yesterday and she stated it was normal.? CT of the abdomen was read as cholelithiasis bilateral parapelvic renal cyst status post bilateral total hip arthroplasty normal appendix multiple thoracic and lumbar fractures.? Her white count is normal her H&H is 11.236.0 which was higher than 1 year ago.? Her sodium was 133 and potassium 2.7.? BUN 4 creatinine 0.50.? The patient has a history of left [id number] amputation.? She is wheelchair-bound and stated that she hit her knee and her right lower extremity on some furniture when she was moving around in her wheelchair.? The patient has a wound to her right lower extremity with redness that extends from her knee down to her right foot.? The patient
[2023-06-05 14:00] VITALS: BP 120/66; PULSE 52; RESP 16; TEMP 36.8; O2SAT 100
[2023-06-05 16:10] LABS: Alanine Aminotransferase 9 U/L (6-35); Albumin Level 1.9 g/dL (3.5-5.1); Alkaline Phosphatase 80 U/L (38-126); Anion Gap 6 mmol/L (8-16); Aspartate Amino Transferase 45 U/L (14-36); Bilirubin,Total 0.4 mg/dL (0.2-1.3); Calcium 7.4 mg/dL (8.4-10.2); Carbon Dioxide 20 mmol/L (22-30); Chloride 109 mmol/L (98-107); Estimated CRCL calculation 86 ml/min; Estimated Glomerular Filt Rate > 60; Glucose 69 mg/dL (65-110); Potassium 3.7 mmol/L (3.4-5.0); Sodium 135 mmol/L (137-145)
[2023-06-05 16:39] LABS: Blood Urea Nitrogen < 2 mg/dL (7-17)
[2023-06-05 19:51] VITALS: O2SAT 100
[2023-06-05 21:46] VITALS: BP 124/72; PULSE 56; RESP 16; TEMP 35.9; O2SAT 95
[2023-06-06] MEDS: SODIUM CHLORIDE 0.9% IV 1,000 ML 100 ML IV CONT ×2 (03:34→12:42)
[2023-06-06 04:57] VITALS: BP 107/67; PULSE 61; RESP 16; TEMP 36.2; O2SAT 97
[2023-06-06] MEDS: ceFAZolin 1 GM/NS 50 ML 1 GM/50 ML BAG IVPB ×3 (05:46→23:49)
[2023-06-06 06:47] LABS: Hematocrit 29.6 % (37.0-47.0); Hemoglobin 9.1 g/dL (12.0-15.0); Mean Corpuscular HGB Conc 30.7 g/dl (32-36); Mean Corpuscular Hemoglobin 24.7 pg (26-34); Mean Corpuscular Volume 80.4 fl (80-100); Mean Platelet Volume 9.3 fl (7.4-10.4); Platelet Count Result 297 k/mm3 (150-375); Red Blood Count 3.68 M/mm3 (4.2-5.4); Red Cell Distribution Width 20.7 % (11.5-14.5); White Blood Count 5.5 K/mm3 (4.5-10.0)
[2023-06-06 06:50] LABS: Anion Gap 3 mmol/L (8-16); Calcium 7.5 mg/dL (8.4-10.2); Carbon Dioxide 26 mmol/L (22-30); Chloride 105 mmol/L (98-107); Estimated CRCL calculation 86 ml/min; Estimated Glomerular Filt Rate > 60; Glucose 65 mg/dL (65-110); Magnesium 1.6 mg/dL (1.6-2.3); Potassium 3.7 mmol/L (3.4-5.0); Sodium 134 mmol/L (137-145)
[2023-06-06 06:55] LABS: Blood Urea Nitrogen < 2 mg/dL (7-17)
--- NOTE | 2023-06-06 08:06 | ECG_ITS ---
Measurements Intervals [place] Rate: 51 P: 70 SC: 153 QRS: -26 QRSD: 102 T: 85 QT: 454 QTc: 421 Interpretive Statements SINUS BRADYCARDIA DELAYED PRECORDIAL R/S TRANSITION LEFT VENTRICULAR HYPERTROPHY AND ST-T CHANGE BORDERLINE ECG COMPARED TO ECG 06/01/2023 11:46:54 SINUS BRADYCARDIA NOW PRESENT Electronically Signed On 06-06-2023 9:57:26 CDT by Jesse Wong D.O.
[2023-06-06 08:35] LABS: Alanine Aminotransferase 10 U/L (6-35); Alkaline Phosphatase 90 U/L (38-126); Amylase 34 U/L (30-110); Aspartate Amino Transferase 43 U/L (14-36); Bilirubin,Total 0.4 mg/dL (0.2-1.3); Lipase 33 U/L (23-300)
[2023-06-06] MEDS: polyethylene glycoL 3350 17 GM POWD.PACK PO (08:53)
[2023-06-06] MEDS: MAGNESIUM OXIDE 400 MG TABLET PO (08:54)
[2023-06-06] MEDS: ENOXAPARIN 40 MG/0.4 ML SYRINGE SUB-Q (08:54)
[2023-06-06] MEDS: PANTOPRAZOLE SODIUM IV 40 MG VIAL IV PUSH (08:54)
[2023-06-06] MEDS: lisinopriL 20 MG TABLET PO (08:55)
[2023-06-06] MEDS: hydroCHLOROthiazide 12.5 MG CAPSULE PO (08:55)
[2023-06-06] MEDS: LORazepam (*CRX) 0.5 MG TABLET PO (08:56)
[2023-06-06 08:57] VITALS: PULSE 91
[2023-06-06] MEDS: atenoloL 50 MG TABLET PO (08:57)
--- NOTE | 2023-06-06 11:38 | PCNFU ---
Nutrition Follow-Up Complete: Moderate protein calorie malnutrition related to inadequate energy intake as evidenced by significant weight loss of -28% x 6 months, poor po intake for greater than 1 month. Goal:Diet advanced with tolerance PO intake 50% or greater for meals and supplements Pt is progressing towards goal. Continue with current goal Pt current nutrition is Full liquids. Nutrition recommendation: Change ensure compact to Ensure Enlive per preference Last recorded weight is 58.5 kg. Bowel Motility: No BM recorded at this time Labs Reviewed: Hgb:9.1, HCT:29.2, Alb:2.0, NA:134, BUN:2, Cr:0.4 Meds Noted: lovenox, zofran, protonix, KCL, HCTZ Skin: no skin issues noted Additional Notes: Pt on full liquids at this time, tolerating ok but not much intake overall. Pt dislikes the Ensure compact but said she could tolerated Enlive. Will switch supplement. Monitor intake, tolerance, wt, labs. Follow up in 3 days.
--- NOTE | 2023-06-06 12:03 | PM.PNGS ---
Progress Note: A&P Assessment and Plan (1) Nausea and vomiting: Qualifiers: Vomiting type: unspecified Qualified Code(s): R11.2 - Nausea with vomiting, unspecified Code(s): R11.2 - Nausea with vomiting, unspecified Status: Chronic Assessment and Plan: Tolerating liquids now with no emesis. With EGD negative other than nonerosive reflux disease, feel that cholecystitis and gallstones are most likely reason for digestive problems. (2) Cholelithiasis and cholecystitis without obstruction: Qualifiers: Cholelithiasis location: gallbladder Cholecystitis acuity: acute and chronic Qualified Code(s): K80.12 - Calculus of gallbladder with acute and chronic cholecystitis without obstruction Code(s): K80.10 - Calculus of gallbladder with chronic cholecystitis without obstruction Status: Chronic Assessment and Plan: HIDA scan positive for cystic duct obstruction and cholecystitis. Plan to go ahead tomorrow morning with laparoscopic cholecystectomy. I discussed the procedure with the patient. I discussed the risks and benefits as well as the usual recovery. Also discussed that she may need to be in the hospital a couple more days after the surgery. All questions were answered. She understands and agrees to go ahead. Subjective Subjective Date/Time Seen: 06/06/23 12:03 Patient reports: no new complaints, feels better, tolerating liquids well, bowel movement and afebrile Interval history: Hepatobiliary scan on Tuesday showed nonvisualization of the gallbladder consistent with acute cholecystitis. Patient has been tolerating full liquids pretty well. Review of Systems Review of Systems: All systems reviewed & are unremarkable except as noted in HPI and below (HPI and those items noted below) Constitutional: Constitutional: Denies chills and Denies fever(s) Cardiovascular: Cardiovascular: Denies chest pain, Denies diaphoresis, Denies dyspnea and Denies paroxysmal nocturnal dyspnea Respiratory: Respiratory: Denies chest congestion, Denies cough and Denies dyspnea Integumentary/Breasts: Skin/Breast: Denies lesions and Denies rash Exam Const: General: cooperative, comfortable, no acute distress, alert and awake Orientation/consciousness: No confusion GI: Inspection: non-distended GI Palp: Yes Soft to palpation, Yes Tenderness to palpation present (GI) (Slight right upper quadrant tenderness, no mass), No Guarding due to palpation present (GI) and No Rebound tenderness present Neuro: General: no focal motor deficits Extrem: General: no calf tenderness and no edema Psych: Affect: normal affect Objective Data Vital Signs Vital Signs: Vital Signs - 24 hr 06/05/23 14:00 06/05/23 19:51 06/05/23 21:46 Temperature 36.8 C 35.9 C L Pulse Rate 52 L 56 L Respiratory Rate 16 16 Blood Pressure 120/66 124/72 Pulse Oximetry 100 100 95 Oxygen Delivery Room Air 06/06/23 04:57 06/06/23 08:57 06/06/23 09:00 Temperature 36.2 C L Pulse Rate 61 91 Respiratory Rate 16 Blood Pressure 107/67 Pulse Oximetry 97 Oxygen Delivery Room Air Intake/Output Intake/Output: Intake & Output 06/03/23 06/04/23 06/05/23 06/06/23 23:59 23:59 23:59 23:59 Intake Total 3590 4240 3310 1170 Output Total 5643 451 4268 Balance 2290 3315 1160 1170 Meds/Results Medications: Active Medications Generic Name Dose Route Start Last Admin Trade Name Freq PRN Reason Stop Dose Admin Atenolol 50 mg 06/02/23 09:00 06/06/23 08:57 Atenolol 50 Mg Tablet PO 50 mg DAILY LISANDRA Administration Cyclobenzaprine HCl 10 mg 06/02/23 01:06 Cyclobenzaprine Hcl 10 Mg Tablet PO HS PRN BACK SPASM Diazepam 2 mg 06/02/23 01:06 Diazepam (*Crx) 2 Mg Tablet PO Q8H PRN Muscle Spasm Enoxaparin Sodium 40 mg 06/02/23 09:00 06/06/23 08:54 Enoxaparin 40 Mg/0.4 Ml Syringe SUB-Q 40 mg DAILY LISANDRA Administration Hydrochlorothiazide 12.5 mg
[2023-06-06 14:00] VITALS: BP 110/63; PULSE 86; RESP 16; TEMP 36.4; O2SAT 98
--- NOTE | 2023-06-06 15:51 | WPDPN ---
Progress Note: A&P Assessment and Plan (1) Hypokalemia: Code(s): E87.6 - Hypokalemia Status: Acute Assessment and Plan: Patient's potassium was 2.7. She was supplemented with potassium. Repeat BMP now and again in the a.m.. Magnesium level was found to be normal. Replace as necessary. 06/06/2023 interval history: Patient presented with abdominal pain nausea and vomiting, patient was seen GI and had endoscopy on 06/02 which showed nonerosive gastritis, today patient stats her nausea and vomiting has improved, however patient is refusing to eat or take her medication in fear of vomiting, patient was not able to complete her bedside swallow study, patient was agreeable to eat and take her medications, nuing staff are helping, patient with hypokalemia most likely due to vomiting and poor intake, will suppplemnet and monitor, patient with persisting abdominal pain, N/V was seen by general surgery and patient had HIDA scan showed acute cholecystitis, patient is scheduled for surgery tomorrow, patient states her pain has improved and denies any nausea or vomiting patient is tolerating her diet, will follow-up and monitor. (2) Anemia: Code(s): D64.9 - Anemia, unspecified Status: Acute Assessment and Plan: Patient's H&H is at her baseline. (3) Cellulitis: Qualifiers: Laterality: unspecified laterality Site of cellulitis: extremity Site of cellulitis of extremity: lower extremity Qualified Code(s): L03.119 - Cellulitis of unspecified part of limb Code(s): L03.90 - Cellulitis, unspecified Status: Acute Assessment and Plan: The patient has some scarring and ulcerated area to right lower extremity. The patient stated this is were she continues to hit her leg with wheelchair. Patient is being treated with Unasyn. Blood cultures are pending. (4) Nausea and vomiting: Qualifiers: Vomiting type: unspecified Qualified Code(s): R11.2 - Nausea with vomiting, unspecified Code(s): R11.2 - Nausea with vomiting, unspecified Status: Chronic Assessment and Plan: GI has been consulted. Continue with Protonix. Her CT scan does show some cholelithiasis may consider consulting surgery. (5) Hypertension: Qualifiers: Hypertension type: unspecified Qualified Code(s): I10 - Essential (primary) hypertension Code(s): I10 - Essential (primary) hypertension Status: Chronic Assessment and Plan: Continue with atenolol, lisinopril and hydrochlorothiazide. Continue to monitor renal function. (6) Depression with anxiety: Code(s): F41.8 - Other specified anxiety disorders Status: Acute Assessment and Plan: Continue with diazepam Subjective Date/time seen: 06/06/23 15:51 Interval history: Nausea vomiting diarrhea HPI-Narrative: This is a 67-year-old female patient who has chronic nausea vomiting without diarrhea.? The patient has had this persistent nausea and vomiting for 3-4 months.? Patient stated she was having difficulty keeping food down and had a significant weight loss.? The patient was given a clear liquid diet in the emergency room and the patient appeared to be doing well with that diet.? The patient stated that she feels very weak and dehydrated.? She complains of intermittent upper abdominal pain.? She denies any rectal bleeding.? No hematemesis.? Her last bowel movement was yesterday and she stated it was normal.? CT of the abdomen was read as cholelithiasis bilateral parapelvic renal cyst status post bilateral total hip arthroplasty normal appendix multiple thoracic and lumbar fractures.? Her white count is normal her H&H is 11.236.0 which was higher than 1 year ago.? Her sodium was 133 and potassium 2.7.? BUN 4 creatinine 0.50.? The patient has a history of left [id number] amputation.? She is wheelchair-bound and stated that she hit her knee and her right lower extremity on some furniture when she wa
[2023-06-06 19:45] VITALS: PULSE 86; RESP 16; O2SAT 98
[2023-06-06 21:19] VITALS: BP 135/62; PULSE 55; RESP 16; TEMP 37; O2SAT 98
[2023-06-07] VITALS (16 sets, daily range): BP systolic 98–147; BP diastolic 55–73; PULSE 44–70; RESP 14–20; TEMP 35.7–37.4; O2SAT 90–98
[2023-06-07] MEDS: SODIUM CHLORIDE 0.9% IV 1,000 ML 100 ML IV CONT (02:11)
[2023-06-07] MEDS: ceFAZolin 1 GM/NS 50 ML 1 GM/50 ML BAG IVPB ×3 (05:08→21:36)
--- NOTE | 2023-06-07 05:58 | PC.NURSE ---
called pharmacy several times for Hibiclens have not received pre op aware. report given to pre op RN
[2023-06-07] MEDS: CHLORHEXIDINE GLUCONATE 4% SOL 120 ML BTL 1 APPLIC TOPICAL (06:25)
[2023-06-07 06:28] LABS: Hematocrit 30.5 % (37.0-47.0); Hemoglobin 9.3 g/dL (12.0-15.0); Mean Corpuscular HGB Conc 30.5 g/dl (32-36); Mean Corpuscular Hemoglobin 24.7 pg (26-34); Mean Corpuscular Volume 80.9 fl (80-100); Platelet Count Result 274 k/mm3 (150-375); Red Blood Count 3.77 M/mm3 (4.2-5.4); Red Cell Distribution Width 20.8 % (11.5-14.5); White Blood Count 5.7 K/mm3 (4.5-10.0)
[2023-06-07] MEDS: LACTATED RINGERS 1,000 ML 30 ML IV CONT ×2 (06:30→08:42)
--- NOTE | 2023-06-07 06:51 | WPDANESEPPF ---
Anes - Initial Pre Proc Eval Procedure: Operation Date: 06/07/23 07:30 Proposed Procedures p Laparoscopic Cholecystectomy - Hansel Bates MD Date/Time: 06/07/23 06:51 Surgeon: Perry Quintana MD Pre Op Diagnosis: n/v,weakness,hypokalemia,rle cellulitis Patient Data Age: 67 Gender: F Height: 1.57 m Weight: 58.5 kg Last Vital Signs Temp 36.8 C 06/07/23 05:09 Pulse 54 L 06/07/23 05:09 Resp 18 06/07/23 05:09 BP 135/57 L 06/07/23 05:09 Pulse Ox 98 06/07/23 05:09 O2 Del Method Room Air 06/06/23 19:45 Allergies Allergy/AdvReac Type Severity Reaction Status Date / Time No Known Allergies Allergy Verified 06/07/23 06:26 Home Medications Medication Instructions Recorded Confirmed Type lisinopril 20 1 tablet PO BID 08/11/20 06/01/23 History mg-hydrochlorothiazide 12.5 mg tablet lorazepam 0.5 mg tablet (Ativan) 0.5 mg PO TID PRN Anxiety 08/11/20 06/01/23 History ropinirole 4 mg tablet 4 mg PO HS PRN Restless Leg(S) 08/11/20 06/01/23 History tramadol 50 mg tablet 50 mg PO Q6H PRN Pain (Scale Score 08/11/20 06/01/23 History 4-6) atenolol 50 mg tablet (Tenormin) 50 mg PO DAILY 09/10/20 06/01/23 History cyclobenzaprine 10 mg tablet 10 mg PO HS PRN BACK SPASM 09/10/20 06/01/23 History diazepam 2 mg tablet 2 mg PO Q8H PRN Muscle Spasm 09/10/20 06/01/23 History Laboratory Tests 06/06/23 06/06/23 06/07/23 06:21 08:16 06:09 WBC 5.7 K/mm3 (4.5-10.0) RBC 3.77 L M/mm3 (4.2-5.4) Hgb 9.3 L g/dL (12.0-15.0) Hct 30.5 L % (37.0-47.0) MCV 80.9 fl (80-100) MCH 24.7 L pg (26-34) MCHC 30.5 L g/dl (32-36) RDW 20.8 H % (11.5-14.5) Plt Count 274 k/mm3 (150-375) MPV 9.0 fl (7.4-10.4) Sodium Pending Potassium Pending Chloride Pending Carbon Dioxide Pending Anion Gap Pending BUN < 2 L mg/dL Pending (7-17) Creatinine Pending Estim Creat Clear Calc Pending Estimated GFR Pending Glucose Pending Calcium Pending Magnesium Pending Total Bilirubin 0.4 mg/dL (0.2-1.3) Direct Bilirubin 0.0 mg/dL (0-0.3) AST 43 H U/L (14-36) ALT 10 U/L (6-35) Alkaline Phosphatase 90 U/L (38-126) Total Protein 5.0 L g/dL (6.3-8.2) Albumin 2.0 L g/dL (3.5-5.1) Amylase 34 U/L (30-110) Lipase 33 U/L (23-300) Blood Type AB Positive Antibody Screen Negative Patient hx anesthesia problems: none Family hx anesthesia problems: none Results Review: All pre-operative results and documents have been reviewed as part of the pre-operative evaluation. [facility] Past Medical History Medical History (Updated 06/06/23 @ 12:14 by Hansel Bates MD) Anxiety Arthritis Asthma Cellulitis of right leg Depression with anxiety History of left above knee amputation HTN (hypertension) with goal to be determined Lymphedema of right lower extremity Patient denies significant medical history Ulcer of right leg Venous stasis ulcer of ankle with fat layer exposed with varicose veins Surgical History Surgical History (Updated 06/02/23 @ 00:56 by Catalina Isaac NP) H/O cataract extraction History of bilateral knee replacement Left 2013, right 2014 Family History Family History Mother Cancer Father Cancer Social History Social History (Updated 06/02/23 @ 00:57 by Catalina Isaac NP) Social History: The patient is . She lives with her son. She has 2 children. She is retired. The patient is a lifelong nonsmoker. No alcohol marijuana or illicit drugs. Code status full code Smoking status: Never smoker Alcohol intake: never Substance use: never Lack of
[2023-06-07 07:07] LABS: Anion Gap 6 mmol/L (8-16); Calcium 7.4 mg/dL (8.4-10.2); Carbon Dioxide 24 mmol/L (22-30); Chloride 103 mmol/L (98-107); Estimated CRCL calculation 86 ml/min; Estimated Glomerular Filt Rate > 60; Glucose 55 mg/dL (65-110); Magnesium 1.6 mg/dL (1.6-2.3); Potassium 3.3 mmol/L (3.4-5.0); Sodium 133 mmol/L (137-145)
[2023-06-07 07:08] LABS: Blood Urea Nitrogen < 2 mg/dL (7-17)
--- NOTE | 2023-06-07 07:22 | WPDHPUPDATE1 ---
History and Physical Update Update Date/Time: 06/07/23 07:22 History and Physical has been reviewed, including an updated exam of the patient. There are NO changes in the patient's condition. Risks, benefits, and alternatives have been discussed and questions answered. Patient agrees to proceed with procedure.
--- NOTE | 2023-06-07 07:25 | P.OP_ITS ---
Procedure Note - Detailed Date of Procedure 06/07/23 Pre-op Diagnosis Acute and chronic cholecystitis, cholelithiasis Post-op Diagnosis Same Procedure Performed Laparoscopic cholecystectomy Surgeon Hansel Bates MD [employer] Corrina WHITMAN Anesthesia General and Local (0.5% Marcaine with epinephrine) Indications Patient is a 67-year-old woman who has had complaints of nausea and vomiting with inability to eat for 3 or 4 months. She came in through the emergency room. Imaging showed gallstones. EGD was negative other than some esophagitis. She had an hepatobiliary scan, however, which showed cystic duct obstruction consistent with acute cholecystitis. She is taken to surgery now for laparoscopic cholecystectomy Findings The gallbladder was thoroughly distended with stones and sludge. There was mild inflammatory change. There was no ductal dilatation. Liver had changes of hepatosteatosis. Description of Procedure Patient was taken to surgery and induced into general anesthesia. The abdomen is prepped and draped. Trocars were placed in usual fashion using applied [facility] optical trocars and a 5 mm camera. There were adhesions to the gallbladder which were taken down using a combination of blunt and sharp dissection. Cautery was used for hemostasis. Following this, the gallbladder was retracted further anterosuperiorly. Adhesions to the gallbladder were taken down further. Eventually the infundibulum and triangle of [place] were exposed. Dissection was then carried out in the lower aspect of the gallbladder and into the cholecystohepatic triangle. The cystic duct and cystic artery were dissected out very clearly. The gallbladder was dissected off the liver at its lower half. Critical view was achieved. We then securely clipped and divided the cystic duct and cystic artery. The gallbladder was then further dissected free from its remaining attachments to the liver. Eventually it was completely freed and was able to be placed in an Endo-Catch bag. It was then retrieved through the 10 11 epigastric trocar site. The epigastric trocar site had to be dilated bluntly to accommodate the gallbladder with its thickened wall and multiple stones and sludge. We replaced the epigastric trocar and reviewed the right upper quadrant. Some additional irrigation and cautery were used to achieve good hemostasis. There was no evidence of bile leak or bleeding. We then evacuated CO2 and removed the trocar sleeves. The fascia at the epigastric trocar site was closed with an 0 Vicryl suture. The subcu was closed with 3-0 Vicryl suture. All skin wounds were closed with subcuticular 4-0 Monocryl skin suture. The wounds were dressed with Exofin surgical adhesive. Patient was awakened and taken to recovery in good condition. Sponge and needle counts were correct x2. Estimated Blood Loss -10 Urine Output 400 Drains No Packing No Pathology Yes (Gallbladder) Complications No immediate complications Condition Stable Disposition PACU [facility] Billing Surgery - Charge Forward: Surgery Billing (Laparoscopic cholecystectomy)
[2023-06-07] MEDS: ceFAZolin SODIUM 1 GM VIAL 2 GM IV PUSH (08:03)
[2023-06-07] MEDS: BUPIVACAINE/EPINEPHRINE 0.5% 10 ML VIAL 30 ML INFILTRATE (08:03)
--- NOTE | 2023-06-07 10:06 | PC.NURSE ---
Returned from OR per [1005]. Report received from [Lg ].
[2023-06-07] MEDS: POTASSIUM CHLORIDE INJ 40 MEQ in SODIUM CHLORIDE 0.9% IV 500 ML 130 MEQ IVPB (10:12)
[2023-06-07] MEDS: LACTATED RINGERS 1,000 ML 80 ML IV CONT ×2 (10:18→21:46)
[2023-06-07] MEDS: ENOXAPARIN 40 MG/0.4 ML SYRINGE SUB-Q (10:19)
[2023-06-07] MEDS: polyethylene glycoL 3350 17 GM POWD.PACK PO ×2 (10:34→16:03)
[2023-06-07] MEDS: hydroCHLOROthiazide 12.5 MG CAPSULE PO ×2 (10:35→16:04)
[2023-06-07] MEDS: MAGNESIUM OXIDE 400 MG TABLET PO (10:35)
[2023-06-07] MEDS: lisinopriL 20 MG TABLET PO ×2 (10:36→16:04)
[2023-06-07] MEDS: PANTOPRAZOLE 40 MG TABLET PO (11:17)
--- NOTE | 2023-06-07 12:32 | WPDPN ---
Progress Note: A&P Assessment and Plan (1) Hypokalemia: Code(s): E87.6 - Hypokalemia Status: Acute Assessment and Plan: Patient's potassium was 2.7. She was supplemented with potassium. Repeat BMP now and again in the a.m.. Magnesium level was found to be normal. Replace as necessary. 06/07/2023 interval history: Patient presented with abdominal pain nausea and vomiting, patient was seen GI and had endoscopy on 06/02 which showed nonerosive gastritis, today patient stats her nausea and vomiting has improved, however patient is refusing to eat or take her medication in fear of vomiting, patient was not able to complete her bedside swallow study, patient was agreeable to eat and take her medications, nuing staff are helping, patient with hypokalemia most likely due to vomiting and poor intake, will suppplemnet and monitor, patient with persisting abdominal pain, N/V was seen by general surgery and patient had HIDA scan showed acute cholecystitis, today patient had a cholecystectomy just return for surgery, is feels better, general surgery started the patient on clear liquid will monitor further recommendation to follow. (2) Anemia: Code(s): D64.9 - Anemia, unspecified Status: Acute Assessment and Plan: Patient's H&H is at her baseline. (3) Cellulitis: Qualifiers: Laterality: unspecified laterality Site of cellulitis: extremity Site of cellulitis of extremity: lower extremity Qualified Code(s): L03.119 - Cellulitis of unspecified part of limb Code(s): L03.90 - Cellulitis, unspecified Status: Acute Assessment and Plan: The patient has some scarring and ulcerated area to right lower extremity. The patient stated this is were she continues to hit her leg with wheelchair. Patient is being treated with Unasyn. Blood cultures are pending. (4) Nausea and vomiting: Qualifiers: Vomiting type: unspecified Qualified Code(s): R11.2 - Nausea with vomiting, unspecified Code(s): R11.2 - Nausea with vomiting, unspecified Status: Chronic Assessment and Plan: GI has been consulted. Continue with Protonix. Her CT scan does show some cholelithiasis may consider consulting surgery. (5) Hypertension: Qualifiers: Hypertension type: unspecified Qualified Code(s): I10 - Essential (primary) hypertension Code(s): I10 - Essential (primary) hypertension Status: Chronic Assessment and Plan: Continue with atenolol, lisinopril and hydrochlorothiazide. Continue to monitor renal function. (6) Depression with anxiety: Code(s): F41.8 - Other specified anxiety disorders Status: Acute Assessment and Plan: Continue with diazepam Subjective Date/time seen: 06/07/23 12:32 Interval history: Nausea vomiting diarrhea HPI-Narrative: This is a 67-year-old female patient who has chronic nausea vomiting without diarrhea.? The patient has had this persistent nausea and vomiting for 3-4 months.? Patient stated she was having difficulty keeping food down and had a significant weight loss.? The patient was given a clear liquid diet in the emergency room and the patient appeared to be doing well with that diet.? The patient stated that she feels very weak and dehydrated.? She complains of intermittent upper abdominal pain.? She denies any rectal bleeding.? No hematemesis.? Her last bowel movement was yesterday and she stated it was normal.? CT of the abdomen was read as cholelithiasis bilateral parapelvic renal cyst status post bilateral total hip arthroplasty normal appendix multiple thoracic and lumbar fractures.? Her white count is normal her H&H is 11.236.0 which was higher than 1 year ago.? Her sodium was 133 and potassium 2.7.? BUN 4 creatinine 0.50.? The patient has a history of left yjgbu-ofn-sxva amputation.? She is wheelchair-bound and stated that she hit her knee and her right lower extremity on some furniture when she was
[2023-06-07] MEDS: ONDANSETRON INJ 4 MG/2 ML VIAL IV PUSH (13:11)
[2023-06-08] VITALS (8 sets, daily range): BP systolic 96–115; BP diastolic 42–60; PULSE 57–65; RESP 13–16; TEMP 36.3–37.2; O2SAT 94–95
[2023-06-08] MEDS: ceFAZolin 1 GM/NS 50 ML 1 GM/50 ML BAG IVPB ×2 (05:10→13:31)
[2023-06-08] MEDS: HYDROcodone/acetaminophen (*CRX) 5-325 MG TABLET 1 TAB PO (05:12)
[2023-06-08 06:06] LABS: Hematocrit 29.8 % (37.0-47.0); Hemoglobin 9.4 g/dL (12.0-15.0); Mean Corpuscular HGB Conc 31.5 g/dl (32-36); Mean Corpuscular Hemoglobin 25.3 pg (26-34); Mean Corpuscular Volume 80.1 fl (80-100); Mean Platelet Volume 9.1 fl (7.4-10.4); Platelet Count Result 320 k/mm3 (150-375); Red Blood Count 3.72 M/mm3 (4.2-5.4); Red Cell Distribution Width 21.2 % (11.5-14.5); White Blood Count 6.6 K/mm3 (4.5-10.0)
[2023-06-08 06:35] LABS: Anion Gap 5 mmol/L (8-16); Blood Urea Nitrogen 3 mg/dL (7-17); Calcium 7.6 mg/dL (8.4-10.2); Carbon Dioxide 25 mmol/L (22-30); Chloride 101 mmol/L (98-107); Estimated CRCL calculation 71 ml/min; Estimated Glomerular Filt Rate > 60; Glucose 95 mg/dL (65-110); Magnesium 1.6 mg/dL (1.6-2.3); Potassium 3.8 mmol/L (3.4-5.0); Sodium 131 mmol/L (137-145)
--- NOTE | 2023-06-08 07:25 | WPDANESPN ---
Anes - Prog Note Post-Op Date/Time: 06/08/23 07:25 Cardiovascular status: normal Respiratory status: normal Airway patency: baseline Mental status: baseline Post-Op hydration status: normal Vital Signs: Last Vital Signs Temp 97.3 F L 06/08/23 03:45 Pulse 57 L 06/08/23 03:45 Resp 16 06/08/23 03:45 BP 98/50 L 06/08/23 03:45 Pulse Ox 95 06/08/23 03:45 O2 Del Method Room Air 06/07/23 13:15 O2 Flow Rate 2 06/07/23 10:30 Pain Score (VAS): 0/10 I/O: Intake & Output 06/07/23 06/07/23 06/08/23 15:59 23:59 07:59 Intake Total 1770 1370 200 Output Total 200 300 Balance 1770 1170 -100 Laboratory Tests 06/08/23 05:47 06/08/23 05:47 06/08/23 05:47 WBC 6.6 RBC 3.72 L Hgb 9.4 L Hct 29.8 L MCV 80.1 MCH 25.3 L MCHC 31.5 L RDW 21.2 H Plt Count 320 MPV 9.1 Sodium 131 L Potassium 3.8 Chloride 101 Carbon Dioxide 25 Anion Gap 5 L BUN 3 L Creatinine 0.50 L Estim Creat Clear Calc 71 Estimated GFR > 60 Glucose 95 Calcium 7.6 L Magnesium 1.6 Post-procedural complaints: none Patient Feedback: Patient satisfied with anesthetic care.
[2023-06-08] MEDS: lisinopriL 20 MG TABLET PO ×2 (09:12→16:34)
[2023-06-08] MEDS: atenoloL 50 MG TABLET PO (09:12)
[2023-06-08] MEDS: PANTOPRAZOLE 40 MG TABLET PO (09:12)
[2023-06-08] MEDS: hydroCHLOROthiazide 12.5 MG CAPSULE PO ×2 (09:12→16:34)
[2023-06-08] MEDS: MAGNESIUM OXIDE 400 MG TABLET PO (09:12)
[2023-06-08] MEDS: ENOXAPARIN 40 MG/0.4 ML SYRINGE SUB-Q (09:12)
[2023-06-08] MEDS: polyethylene glycoL 3350 17 GM POWD.PACK PO ×2 (09:12→16:34)
[2023-06-08] MEDS: LACTATED RINGERS 1,000 ML 80 ML IV CONT (13:33)
--- NOTE | 2023-06-08 13:53 | PM.PNGS ---
Progress Note: A&P Assessment and Plan (1) Cholelithiasis and cholecystitis without obstruction: Qualifiers: Cholelithiasis location: gallbladder Cholecystitis acuity: acute and chronic Qualified Code(s): K80.12 - Calculus of gallbladder with acute and chronic cholecystitis without obstruction Code(s): K80.10 - Calculus of gallbladder with chronic cholecystitis without obstruction Status: Chronic Assessment and Plan: Doing well so far postop. She is quite debilitated and still very uncomfortable. She she needs at least today in the hospital to assess her ability to eat solid food and to provide analgesics. She lives with 1 of her sons. She possibly could go home tomorrow but more likely Tuesday assuming all goes well between now and then. So far she seems to be healing adequately postop. (2) Nausea and vomiting: Qualifiers: Vomiting type: unspecified Qualified Code(s): R11.2 - Nausea with vomiting, unspecified Code(s): R11.2 - Nausea with vomiting, unspecified Status: Chronic Assessment and Plan: Resolved postoperatively thus far. Subjective Subjective Date/Time Seen: 06/08/23 09:53 Post Op day: 1 Patient reports: still having pain, tolerating liquids well and afebrile Interval history: No vomiting after surgery. Just started on solid food. Still having incisional pain and very fatigued. Exam Const: General: comfortable, no acute distress, alert, awake and tired appearing GI: Inspection: non-distended and incision (All incisions dry and healing nicely) GI Palp: Yes Soft to palpation, Yes Tenderness to palpation present (GI) (Moderate incisional tenderness), No Guarding due to palpation present (GI) and No Rebound tenderness present Auscultation: normal bowel sounds Neuro: General: patient oriented x3 and no focal motor deficits Cranial nerves: Yes facial symmetry and Yes Midline tongue present Speech: normal speech Gait exam (Neuro): Unable to assess gait (Amputee) Psych: Mental Status: mental status grossly normal Affect: normal affect Thought content: Yes Normal thought content present Insight: Fair insight present (Psych) Judgement: Fair judgement present (Psych) Objective Data Vital Signs Vital Signs: Vital Signs - 24 hr 06/07/23 15:59 06/07/23 19:45 06/07/23 23:45 Temperature 36.3 C L 36.8 C 35.9 C L Pulse Rate 54 L 53 L 59 L Respiratory Rate 16 18 16 Blood Pressure 118/67 113/57 L 98/57 L Pulse Oximetry 95 95 95 Oxygen Delivery 06/08/23 03:45 06/08/23 08:00 06/08/23 08:07 Temperature 36.3 C L 36.7 C Pulse Rate 57 L 62 Respiratory Rate 16 16 Blood Pressure 98/50 L 106/52 L Pulse Oximetry 95 95 95 Oxygen Delivery Room Air 06/08/23 09:12 06/08/23 08:00 06/08/23 12:00 Temperature 37.2 C Pulse Rate 62 62 Respiratory Rate 16 Blood Pressure 96/42 L Pulse Oximetry 94 Oxygen Delivery Room Air Intake/Output Intake/Output: Intake & Output 06/05/23 06/06/23 06/07/23 06/08/23 23:59 23:59 23:59 23:59 Intake Total 3310 2460 4490 1490 Output Total 2150 1000 1000 300 Balance 1160 1460 3490 1190 Meds/Results Medications: Active Medications Generic Name Dose Route Start Last Admin Trade Name Freq PRN Reason Stop Dose Admin Acetaminophen 500 mg 06/07/23 10:00 Acetaminophen 500 Mg Tablet PO Q6H PRN Mild Pain (1-3) or Fever Hydrocodone Bitart/Acetaminophen 1 tab 06/07/23 10:00 06/08/23 05:12 Hydrocodone/Acetaminophen (*Crx) 5-325 Mg Tablet PO 1 tab Q4H PRN Administration Pain Rated 4-6 Atenolol 50 mg 06/02/23 09:00 06/08/23 09:12 Atenolol 50 Mg Tablet PO 50 mg DAILY LISANDRA Administration Cyclobenzaprine HCl 10 mg 06/02/23 01:06 Cyclobenzaprine Hcl 10 Mg Tablet PO HS PRN BACK SPASM Diazepam 2 mg 06/02/23 01:06 Diazepam (*Crx) 2 Mg Tablet PO Q8H PRN Muscle Spasm Enoxaparin Sodium 40 mg 06/02/23 09:00 06/08/23 09:12
--- NOTE | 2023-06-08 15:39 | WPDPN ---
Progress Note: A&P Assessment and Plan (1) Hypokalemia: Code(s): E87.6 - Hypokalemia Status: Acute Assessment and Plan: Patient's potassium was 2.7. She was supplemented with potassium. Repeat BMP now and again in the a.m.. Magnesium level was found to be normal. Replace as necessary. 06/08/2023 interval history: Patient presented with abdominal pain nausea and vomiting, patient was seen GI and had endoscopy on 06/02 which showed nonerosive gastritis, today patient stats her nausea and vomiting has improved, however patient is refusing to eat or take her medication in fear of vomiting, patient was not able to complete her bedside swallow study, patient was agreeable to eat and take her medications[facility], patient with hypokalemia most likely due to vomiting and poor intake, will suppplemnet and monitor, patient with persisting abdominal pain, N/V was seen by general surgery and patient had HIDA scan showed acute cholecystitis, on 06/07 patient had a cholecystectomy POD #1, patient is tolerating clear liguids and tolerating, seen by her surgeon and advance to low fat diet, will monitor, she feels little better, will reassess tomorrow and plan (2) Anemia: Code(s): D64.9 - Anemia, unspecified Status: Acute Assessment and Plan: Patient's H&H is at her baseline. (3) Cellulitis: Qualifiers: Laterality: unspecified laterality Site of cellulitis: extremity Site of cellulitis of extremity: lower extremity Qualified Code(s): L03.119 - Cellulitis of unspecified part of limb Code(s): L03.90 - Cellulitis, unspecified Status: Acute Assessment and Plan: The patient has some scarring and ulcerated area to right lower extremity. The patient stated this is were she continues to hit her leg with wheelchair. Patient is being treated with Unasyn. Blood cultures are pending. (4) Nausea and vomiting: Qualifiers: Vomiting type: unspecified Qualified Code(s): R11.2 - Nausea with vomiting, unspecified Code(s): R11.2 - Nausea with vomiting, unspecified Status: Chronic Assessment and Plan: GI has been consulted. Continue with Protonix. Her CT scan does show some cholelithiasis may consider consulting surgery. (5) Hypertension: Qualifiers: Hypertension type: unspecified Qualified Code(s): I10 - Essential (primary) hypertension Code(s): I10 - Essential (primary) hypertension Status: Chronic Assessment and Plan: Continue with atenolol, lisinopril and hydrochlorothiazide. Continue to monitor renal function. (6) Depression with anxiety: Code(s): F41.8 - Other specified anxiety disorders Status: Acute Assessment and Plan: Continue with diazepam Subjective Date/time seen: 06/08/23 15:39 Interval history: Nausea vomiting diarrhea HPI-Narrative: This is a 67-year-old female patient who has chronic nausea vomiting without diarrhea.? The patient has had this persistent nausea and vomiting for 3-4 months.? Patient stated she was having difficulty keeping food down and had a significant weight loss.? The patient was given a clear liquid diet in the emergency room and the patient appeared to be doing well with that diet.? The patient stated that she feels very weak and dehydrated.? She complains of intermittent upper abdominal pain.? She denies any rectal bleeding.? No hematemesis.? Her last bowel movement was yesterday and she stated it was normal.? CT of the abdomen was read as cholelithiasis bilateral parapelvic renal cyst status post bilateral total hip arthroplasty normal appendix multiple thoracic and lumbar fractures.? Her white count is normal her H&H is 11.236.0 which was higher than 1 year ago.? Her sodium was 133 and potassium 2.7.? BUN 4 creatinine 0.50.? The patient has a history of left [id number] amputation.? She is wheelchair-bound and stated that she hit her knee and her right l
[2023-06-08] MEDS: AMOXICILLIN/CLAVULANATE K 875-125 MG TAB 1 TABLET PO (20:22)
[2023-06-09] MEDS: LACTATED RINGERS 1,000 ML 80 ML IV CONT ×2 (02:20→14:33)
[2023-06-09 05:52] VITALS: BP 133/65; PULSE 64; RESP 13; TEMP 36.7; O2SAT 94
[2023-06-09] MEDS: polyethylene glycoL 3350 17 GM POWD.PACK PO ×2 (08:39→16:40)
[2023-06-09] MEDS: ENOXAPARIN 40 MG/0.4 ML SYRINGE SUB-Q (08:40)
[2023-06-09 08:41] VITALS: PULSE 61
[2023-06-09] MEDS: lisinopriL 20 MG TABLET PO ×2 (08:41→16:41)
[2023-06-09] MEDS: atenoloL 50 MG TABLET PO (08:41)
[2023-06-09] MEDS: MAGNESIUM OXIDE 400 MG TABLET PO (08:42)
[2023-06-09] MEDS: AMOXICILLIN/CLAVULANATE K 875-125 MG TAB 1 TABLET PO ×2 (08:42→20:35)
[2023-06-09] MEDS: PANTOPRAZOLE 40 MG TABLET PO (08:42)
[2023-06-09] MEDS: hydroCHLOROthiazide 12.5 MG CAPSULE PO ×2 (08:42→16:41)
[2023-06-09 10:07] LABS: Hematocrit 30.2 % (37.0-47.0); Hemoglobin 9.4 g/dL (12.0-15.0); Mean Corpuscular HGB Conc 31.1 g/dl (32-36); Mean Corpuscular Hemoglobin 25.1 pg (26-34); Mean Corpuscular Volume 80.5 fl (80-100); Mean Platelet Volume 9.4 fl (7.4-10.4); Platelet Count Result 322 k/mm3 (150-375); Red Blood Count 3.75 M/mm3 (4.2-5.4); Red Cell Distribution Width 21.7 % (11.5-14.5); White Blood Count 5.9 K/mm3 (4.5-10.0)
[2023-06-09 10:17] LABS: Potassium 3.1 mmol/L (3.4-5.0)
[2023-06-09 10:29] LABS: Anion Gap 3 mmol/L (8-16); Blood Urea Nitrogen 4 mg/dL (7-17); Calcium 7.8 mg/dL (8.4-10.2); Carbon Dioxide 27 mmol/L (22-30); Chloride 103 mmol/L (98-107); Estimated CRCL calculation 86 ml/min; Estimated Glomerular Filt Rate > 60; Glucose 75 mg/dL (65-110); Magnesium 1.6 mg/dL (1.6-2.3); Sodium 133 mmol/L (137-145)
--- NOTE | 2023-06-09 11:42 | PCNFU ---
Nutrition Follow-Up Complete: Moderate protein calorie malnutrition related to inadequate energy intake as evidenced by significant weight loss of -28% x 6 months, poor po intake for greater than 1 month. Goal:Diet advanced with tolerance PO intake 50% or greater for meals and supplements Pt is meeting goal, continue with same goal Pt current nutrition is Low fat, Ensure compact BID. Nutrition recommendation: Change Ensure to Enlive daily Last recorded weight is 58.5 kg. Bowel Motility: no BM recorded at this time Labs Reviewed: Hgb:9.1, HCT:29.2, alb:2.0, NA:134, BUN:2, Cr:0.4 Meds Noted: lovenox, zofran, protonix, KCL, HCTZ Skin: no skin issues noted Additional Notes: Pt is now on a low fat diet, intake 50% most all meals. Ensure was switched to Enlive and then back to compact which pt will not consume. Will switch back. Monitor intake, tolerance, wt, labs. Follow up in 7 days.
[2023-06-09 13:43] VITALS: BP 97/52; PULSE 63; RESP 16; TEMP 37.1; O2SAT 95
--- NOTE | 2023-06-09 14:38 | WPDPN ---
Progress Note: A&P Assessment and Plan (1) Hypokalemia: Code(s): E87.6 - Hypokalemia Status: Acute Assessment and Plan: Patient's potassium was 2.7. She was supplemented with potassium. Repeat BMP now and again in the a.m.. Magnesium level was found to be normal. Replace as necessary. 06/09/2023 interval history: Patient presented with abdominal pain nausea and vomiting, patient was seen GI and had endoscopy on 06/02 which showed nonerosive gastritis, today patient stats her nausea and vomiting has improved, however patient is refusing to eat or take her medication in fear of vomiting, patient was not able to complete her bedside swallow study, patient was agreeable to eat and take her medications, [facility] staff are helping, patient with hypokalemia most likely due to vomiting and poor intake, will suppplemnet and monitor, patient with persisting abdominal pain, N/V was seen by general surgery and patient had HIDA scan showed acute cholecystitis, on 06/07 patient had a cholecystectomy POD #2, patient is tolerating clear liguids and tolerating, was seen by her surgeon and advance to low fat diet, however patient is still reluctant to eat, will monitor, she feels little better, will reassess tomorrow and plan (2) Anemia: Code(s): D64.9 - Anemia, unspecified Status: Acute Assessment and Plan: Patient's H&H is at her baseline. (3) Cellulitis: Qualifiers: Laterality: unspecified laterality Site of cellulitis: extremity Site of cellulitis of extremity: lower extremity Qualified Code(s): L03.119 - Cellulitis of unspecified part of limb Code(s): L03.90 - Cellulitis, unspecified Status: Acute Assessment and Plan: The patient has some scarring and ulcerated area to right lower extremity. The patient stated this is were she continues to hit her leg with wheelchair. Patient is being treated with Unasyn. Blood cultures are pending. (4) Nausea and vomiting: Qualifiers: Vomiting type: unspecified Qualified Code(s): R11.2 - Nausea with vomiting, unspecified Code(s): R11.2 - Nausea with vomiting, unspecified Status: Chronic Assessment and Plan: GI has been consulted. Continue with Protonix. Her CT scan does show some cholelithiasis may consider consulting surgery. (5) Hypertension: Qualifiers: Hypertension type: unspecified Qualified Code(s): I10 - Essential (primary) hypertension Code(s): I10 - Essential (primary) hypertension Status: Chronic Assessment and Plan: Continue with atenolol, lisinopril and hydrochlorothiazide. Continue to monitor renal function. (6) Depression with anxiety: Code(s): F41.8 - Other specified anxiety disorders Status: Acute Assessment and Plan: Continue with diazepam Subjective Date/time seen: 06/09/23 14:38 Interval history: Patient's potassium was 2.7. She was supplemented with potassium. Repeat BMP now and again in the a.m.. Magnesium level was found to be normal. Replace as necessary. 06/09/2023 interval history: Patient presented with abdominal pain nausea and vomiting, patient was seen GI and had endoscopy on 06/02 which showed nonerosive gastritis, today patient stats her nausea and vomiting has improved, however patient is refusing to eat or take her medication in fear of vomiting, patient was not able to complete her bedside swallow study, patient was agreeable to eat and take her medications, [facility] staff are helping, patient with hypokalemia most likely due to vomiting and poor intake, will suppplemnet and monitor, patient with persisting abdominal pain, N/V was seen by general surgery and patient had HIDA scan showed acute cholecystitis, on 06/07 patient had a cholecystectomy POD #2, patient is tolerating clear liguids and tolerating, was seen by her surgeon and advance to low fat diet, however patient is still reluctant to eat, will monitor, she feel
--- NOTE | 2023-06-09 16:36 | PM.PNGS ---
Progress Note: A&P Assessment and Plan (1) Nausea and vomiting: Qualifiers: Vomiting type: unspecified Qualified Code(s): R11.2 - Nausea with vomiting, unspecified Code(s): R11.2 - Nausea with vomiting, unspecified Status: Resolved Assessment and Plan: No nausea reported, no vomiting since surgery (2) Cholelithiasis and cholecystitis without obstruction: Qualifiers: Cholelithiasis location: gallbladder Cholecystitis acuity: acute and chronic Qualified Code(s): K80.12 - Calculus of gallbladder with acute and chronic cholecystitis without obstruction Code(s): K80.10 - Calculus of gallbladder with chronic cholecystitis without obstruction Status: Chronic Assessment and Plan: Healing well. Will advance to regular diet. I will go ahead and give her a Fleet's enema to see if she can have a bowel movement. Plan for her to go home tomorrow. Son can't pick her up until about 4:00 p.m.. Subjective Subjective Date/Time Seen: 06/09/23 16:36 Post Op day: 2 Patient reports: feels better, pain is less, no bowel movement, afebrile and other (Does not like the low-fat diet, picky eater.) Interval history: No nausea Exam Const: General: comfortable, no acute distress, alert and awake GI: Inspection: non-distended and incision (Healing well) GI Palp: Yes Soft to palpation, No Tenderness to palpation present (GI), No Guarding due to palpation present (GI) and No Rebound tenderness present Auscultation: normal bowel sounds Neuro: General: no focal motor deficits Cranial nerves: Yes facial symmetry and Yes Midline tongue present Speech: normal speech Psych: Affect: normal affect Attitude: cooperative Thought process: Normal thought process present Insight: Fair insight present (Psych) Judgement: Fair judgement present (Psych) Objective Data Vital Signs Vital Signs: Vital Signs - 24 hr 06/08/23 20:51 06/08/23 20:00 06/09/23 05:52 Temperature 37.2 C 36.7 C Pulse Rate 65 65 64 Respiratory Rate 13 13 13 Blood Pressure 115/60 133/65 Pulse Oximetry 94 94 94 Oxygen Delivery Room Air 06/09/23 08:41 06/09/23 13:43 Temperature 37.1 C Pulse Rate 61 63 Respiratory Rate 16 Blood Pressure 97/52 L Pulse Oximetry 95 Oxygen Delivery Intake/Output Intake/Output: Intake & Output 06/06/23 06/07/23 06/08/23 06/09/23 23:59 23:59 23:59 23:59 Intake Total 2460 4490 2000 2860 Output Total 1000 7723 466 1675 Balance 1460 3490 1700 1060 taking in much more oral intake today than yesterday. Meds/Results Medications: Active Medications Generic Name Dose Route Start Last Admin Trade Name Freq PRN Reason Stop Dose Admin Acetaminophen 500 mg 06/07/23 10:00 Acetaminophen 500 Mg Tablet PO Q6H PRN Mild Pain (1-3) or Fever Hydrocodone Bitart/Acetaminophen 1 tab 06/07/23 10:00 06/08/23 05:12 Hydrocodone/Acetaminophen (*Crx) 5-325 Mg Tablet PO 1 tab Q4H PRN Administration Pain Rated 4-6 Amoxicillin/Clavulanate Potassium 1 tablet 06/08/23 21:00 06/09/23 08:42 Amoxicillin/Clavulanate K 875-125 Mg Tab PO 06/10/23 21:01 1 tablet Q12HR LISANDRA Administration Atenolol 50 mg 06/02/23 09:00 06/09/23 08:41 Atenolol 50 Mg Tablet PO 50 mg DAILY LISANDRA Administration Cyclobenzaprine HCl 10 mg 06/02/23 01:06 Cyclobenzaprine Hcl 10 Mg Tablet PO HS PRN BACK SPASM Diazepam 2 mg 06/02/23 01:06 Diazepam (*Crx) 2 Mg Tablet PO Q8H PRN Muscle Spasm Enoxaparin Sodium 40 mg 06/02/23 09:00 06/09/23 08:40 Enoxaparin 40 Mg/0.4 Ml Syringe SUB-Q 40 mg DAILY LISANDRA Administration Hydrochlorothiazide 12.5 mg 06/02/23 09:00 06/09/23 08:42 Hydrochlorothiazide 12.5 Mg Capsule PO 12.5 mg BID LISANDRA Administration Lactated Ringer's 1,000 mls @ 80 mls/hr 06/07/23 10:00 06/09/23 14:33 Lr - Lactated Ringers Iv IV CONT 80 mls/hr .[id number] LISANDRA Administration Lisinopril 20 mg
[2023-06-09 16:39] VITALS: BP 137/66
[2023-06-09 21:43] VITALS: BP 111/79; PULSE 64; RESP 18; TEMP 36.7; O2SAT 95
[2023-06-10] MEDS: LACTATED RINGERS 1,000 ML 80 ML IV CONT (00:35)
[2023-06-10 06:21] VITALS: BP 145/74; PULSE 62; RESP 18; TEMP 36.6; O2SAT 94
[2023-06-10 06:43] LABS: Hematocrit 28.5 % (37.0-47.0); Hemoglobin 8.6 g/dL (12.0-15.0); Mean Corpuscular HGB Conc 30.2 g/dl (32-36); Mean Corpuscular Hemoglobin 24.5 pg (26-34); Mean Corpuscular Volume 81.2 fl (80-100); Mean Platelet Volume 9.7 fl (7.4-10.4); Platelet Count Result 270 k/mm3 (150-375); Red Blood Count 3.51 M/mm3 (4.2-5.4); Red Cell Distribution Width 21.8 % (11.5-14.5); White Blood Count 4.6 K/mm3 (4.5-10.0)
[2023-06-10 07:09] LABS: Anion Gap -1 mmol/L (8-16); Blood Urea Nitrogen 2 mg/dL (7-17); Calcium 7.6 mg/dL (8.4-10.2); Carbon Dioxide 32 mmol/L (22-30); Chloride 104 mmol/L (98-107); Estimated CRCL calculation 86 ml/min; Estimated Glomerular Filt Rate > 60; Glucose 70 mg/dL (65-110); Magnesium 1.6 mg/dL (1.6-2.3); Potassium 3.1 mmol/L (3.4-5.0); Sodium 135 mmol/L (137-145)
[2023-06-10 09:01] VITALS: PULSE 62
[2023-06-10] MEDS: ENOXAPARIN 40 MG/0.4 ML SYRINGE SUB-Q (09:01)
[2023-06-10] MEDS: polyethylene glycoL 3350 17 GM POWD.PACK PO (09:01)
[2023-06-10] MEDS: atenoloL 50 MG TABLET PO (09:01)
[2023-06-10] MEDS: hydroCHLOROthiazide 12.5 MG CAPSULE PO (09:01)
[2023-06-10] MEDS: PANTOPRAZOLE 40 MG TABLET PO (09:02)
[2023-06-10] MEDS: lisinopriL 20 MG TABLET PO (09:02)
[2023-06-10] MEDS: MAGNESIUM OXIDE 400 MG TABLET PO (09:02)
[2023-06-10] MEDS: AMOXICILLIN/CLAVULANATE K 875-125 MG TAB 1 TABLET PO (09:02)
--- NOTE | 2023-06-10 13:24 | WPDPN ---
Progress Note: A&P Assessment and Plan (1) Hypokalemia: Code(s): E87.6 - Hypokalemia Status: Acute Assessment and Plan: Patient's potassium was 2.7. She was supplemented with potassium. Repeat BMP now and again in the a.m.. Magnesium level was found to be normal. Replace as necessary. 06/10/2023 interval history: Patient presented with abdominal pain nausea and vomiting, patient was seen GI and had endoscopy on 06/02 which showed nonerosive gastritis, today patient stats her nausea and vomiting has improved, however patient is refusing to eat or take her medication in fear of vomiting, patient was not able to complete her bedside swallow study, patient was agreeable to eat and take her medications, [facility] staff are helping, patient with hypokalemia most likely due to vomiting and poor intake, will suppplemnet and monitor, patient with persisting abdominal pain, N/V was seen by general surgery and patient had HIDA scan showed acute cholecystitis, on 06/07 patient had a cholecystectomy POD #3, patient is tolerating clear liguids, , was seen by her surgeon and advance to low fat diet, however patient is still reluctant to eat, and has not had a BM, today the surgeon ordered Fleet enema, will monitor, she feels little better, will reassess tomorrow and plan (2) Anemia: Code(s): D64.9 - Anemia, unspecified Status: Acute Assessment and Plan: Patient's H&H is at her baseline. (3) Cellulitis: Qualifiers: Laterality: unspecified laterality Site of cellulitis: extremity Site of cellulitis of extremity: lower extremity Qualified Code(s): L03.119 - Cellulitis of unspecified part of limb Code(s): L03.90 - Cellulitis, unspecified Status: Acute Assessment and Plan: The patient has some scarring and ulcerated area to right lower extremity. The patient stated this is were she continues to hit her leg with wheelchair. Patient is being treated with Unasyn. Blood cultures are pending. (4) Nausea and vomiting: Qualifiers: Vomiting type: unspecified Qualified Code(s): R11.2 - Nausea with vomiting, unspecified Code(s): R11.2 - Nausea with vomiting, unspecified Status: Resolved Assessment and Plan: GI has been consulted. Continue with Protonix. Her CT scan does show some cholelithiasis may consider consulting surgery. (5) Hypertension: Qualifiers: Hypertension type: unspecified Qualified Code(s): I10 - Essential (primary) hypertension Code(s): I10 - Essential (primary) hypertension Status: Chronic Assessment and Plan: Continue with atenolol, lisinopril and hydrochlorothiazide. Continue to monitor renal function. (6) Depression with anxiety: Code(s): F41.8 - Other specified anxiety disorders Status: Acute Assessment and Plan: Continue with diazepam Subjective Date/time seen: 06/10/23 13:24 Interval history: Patient's potassium was 2.7. She was supplemented with potassium. Repeat BMP now and again in the a.m.. Magnesium level was found to be normal. Replace as necessary. 06/10/2023 interval history: Patient presented with abdominal pain nausea and vomiting, patient was seen GI and had endoscopy on 06/02 which showed nonerosive gastritis, today patient stats her nausea and vomiting has improved, however patient is refusing to eat or take her medication in fear of vomiting, patient was not able to complete her bedside swallow study, patient was agreeable to eat and take her medications, [id number], patient with hypokalemia most likely due to vomiting and poor intake, will suppplemnet and monitor, patient with persisting abdominal pain, N/V was seen by general surgery and patient had HIDA scan showed acute cholecystitis, on 06/07 patient had a cholecystectomy POD #3, patient is tolerating clear liguids, , was seen by her surgeon and advance to low fat diet, however patient is still r
[2023-06-10 14:00] VITALS: BP 123/93; PULSE 79; RESP 18; TEMP 36.2; O2SAT 97
--- NOTE | 2023-06-10 16:11 | PM.DS ---
DS: Admitting Diagnosis Discharge Date 06/10/2023 Admitting Diagnosis Nausea vomiting diarrhea DS: Discharge Diagnosis Discharge Diagnosis (1) Hypokalemia: Code(s): E87.6 - Hypokalemia Status: Acute Assessment and Plan: Patient's potassium was 2.7. She was supplemented with potassium. Repeat BMP now and again in the a.m.. Magnesium level was found to be normal. Replace as necessary. 06/10/2023 interval history: Patient presented with abdominal pain nausea and vomiting, patient was seen GI and had endoscopy on 06/02 which showed nonerosive gastritis, today patient stats her nausea and vomiting has improved, however patient is refusing to eat or take her medication in fear of vomiting, patient was not able to complete her bedside swallow study, patient was agreeable to eat and take her medications, [facility] staff are helping, patient with hypokalemia most likely due to vomiting and poor intake, will suppplemnet and monitor, patient with persisting abdominal pain, N/V was seen by general surgery and patient had HIDA scan showed acute cholecystitis, on 06/07 patient had a cholecystectomy POD #3, patient is tolerating clear liguids, , was seen by her surgeon and advance to low fat diet, however patient is still reluctant to eat, and has not had a BM, today the surgeon ordered Fleet enema, will monitor, she feels little better, will reassess tomorrow and plan (2) Anemia: Code(s): D64.9 - Anemia, unspecified Status: Acute Assessment and Plan: Patient's H&H is at her baseline. (3) Cellulitis: Qualifiers: Laterality: unspecified laterality Site of cellulitis: extremity Site of cellulitis of extremity: lower extremity Qualified Code(s): L03.119 - Cellulitis of unspecified part of limb Code(s): L03.90 - Cellulitis, unspecified Status: Acute Assessment and Plan: The patient has some scarring and ulcerated area to right lower extremity. The patient stated this is were she continues to hit her leg with wheelchair. Patient is being treated with Unasyn. Blood cultures are pending. (4) Nausea and vomiting: Qualifiers: Vomiting type: unspecified Qualified Code(s): R11.2 - Nausea with vomiting, unspecified Code(s): R11.2 - Nausea with vomiting, unspecified Status: Chronic Assessment and Plan: GI has been consulted. Continue with Protonix. Her CT scan does show some cholelithiasis may consider consulting surgery. (5) Hypertension: Qualifiers: Hypertension type: unspecified Qualified Code(s): I10 - Essential (primary) hypertension Code(s): I10 - Essential (primary) hypertension Status: Chronic Assessment and Plan: Continue with atenolol, lisinopril and hydrochlorothiazide. Continue to monitor renal function. (6) Depression with anxiety: Code(s): F41.8 - Other specified anxiety disorders Status: Acute Assessment and Plan: Continue with diazepam DS: Summary Hospital Course Reason for hospitalization: Weakness, nausea, vomiting. Chief Complaint: Nausea vomiting diarrhea Narrative: This is a 67-year-old female patient who has chronic nausea vomiting without diarrhea.? The patient has had this persistent nausea and vomiting for 3-4 months.? Patient stated she was having difficulty keeping food down and had a significant weight loss.? The patient was given a clear liquid diet in the emergency room and the patient appeared to be doing well with that diet.? The patient stated that she feels very weak and dehydrated.? She complains of intermittent upper abdominal pain.? She denies any rectal bleeding.? No hematemesis.? Her last bowel movement was yesterday and she stated it was normal.? CT of the abdomen was read as cholelithiasis bilateral parapelvic renal cyst status post bilateral total hip arthroplasty normal appendix multiple thoracic and lumbar fractures.? Her white count is normal her H&H is 11.
--- NOTE | 2023-06-10 21:18 | PM.CNGS ---
Assessment and Plan Assessment and plan (1) Nausea and vomiting: Qualifiers: Vomiting type: unspecified Qualified Code(s): R11.2 - Nausea with vomiting, unspecified Code(s): R11.2 - Nausea with vomiting, unspecified Status: Chronic Assessment and Plan: Gallbladder disease seems unlikely to be cause of N & V for several months with no accompanying pain. Will get HIDA scan to better evaluate for cholecystitis. Patient to have EGD today. (2) Cholelithiasis: Code(s): K80.20 - Calculus of gallbladder without cholecystitis without obstruction Status: Chronic Assessment and Plan: Noted on US and CT. No signs cholecystitis. Will get HIDA scan. (3) Dehydration: Code(s): E86.0 - Dehydration Status: Acute (4) Hypokalemia: Code(s): E87.6 - Hypokalemia Status: Acute History of Present Illness Consult details Consult date: 06/02/23 Reason for consult: gallstones Requesting physician: Catalina Isaac NP Narrative: Patient is 67yo woman who came to ED yesterday with 3-4 month hx of nausea and emesis. She also noted some intermittent upper abdominal pain. She was dehydrated with hypokalemia and signs of malnutrition. She describes weight loss as well. She had a CT abd/pelvis which showed several compression fractures not seen on CT [address] also showed gallstones. Patient does not note eating provoking abdominal pain. Pain is intermittent and seemingly random. Denies RUQ pain, Pain is more diffuese in upper half abdomen. CT did not show signs cholecystitis. Ultrasound done today shows gallstones, no signs cholecystitis. She is seen in consultation for gallstones and possible cholecystitis. Dr. Mendez has seen the patient and plans to perform EGD today. 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 Stays at home with her son. Uses wheelchair. Review of Systems Review of Systems: All systems reviewed & are unremarkable except as noted in HPI and below (HPI and those items listed below.) Constitutional: Constitutional: Denies chills and Denies fever(s) Cardiovascular: Cardiovascular: Denies chest pain, Denies diaphoresis, Denies dyspnea and Denies paroxysmal nocturnal dyspnea Respiratory: Respiratory: Denies chest congestion, Denies cough and Denies dyspnea Integumentary/Breasts: Skin/Breast: Denies lesions and Denies rash PMFSH Past Medical History Medical History Anxiety Arthritis Asthma Cellulitis of right leg Depression with anxiety History of left above knee amputation HTN (hypertension) with goal to be determined Lymphedema of right lower extremity Patient denies significant medical history Ulcer of right leg Venous stasis ulcer of ankle with fat layer exposed with varicose veins Surgical History Surgical History H/O cataract extraction History of bilateral knee replacement Left 2013, right 2014 Family History Family History Mother Cancer Father Cancer Social History Social History Social History: The patient is . She lives with her son. She has 2 children. She is retired. The patient is a lifelong nonsmoker. No alcohol marijuana or illicit drugs. Code status full code Smoking status: Never smoker Alcohol intake: never Substance use: never Lack of Transportation: No Lack of Food: Never True Current Housing: I Have Housing Concerned About Future Housing: No Difficulty Paying Gas/Electric Bills: No Difficulty Paying for Meds: No Currently Unemployed: No Education: High School Diploma/GED Difficulty w/ Childcare or Family Care: No Gender identity (if verbalized by the patient): Female Sexual Orientation (if Verbalized by the Patient): Straight or Heterosexual Spiritual care yann
== END 2023-06-10 17:07 | disposition home health service (06) | DRG 418 ==
LOC: ANHED 11:41 → ANH3MEDSUR 14:13
PROVIDERS: Anesthesiology; Emergency Medicine; Internal Medicine Gastroenterology; Nurse Practitioner; Surgery; Admitting Provider Hospitalist; Emergency Provider Physician Assistant; PCP Family Medicine; Visit Provider Family Medicine
PROC: 0DJ08ZZ Inspection of Upper Intestinal Tract, Via Natural or Artificial Opening Endoscopic (ICD-10-PCS; CPT 43235; principal; 2023-06-02 16:30)
PROC: 0FT44ZZ Resection of Gallbladder, Percutaneous Endoscopic Approach (ICD-10-PCS; CPT 47562; principal; 2023-06-07 07:30)
DX: K80.10 Calculus of gallbladder with chronic cholecystitis without obstruction (principal); E87.1 Hypo-osmolality and hyponatremia; L03.115 Cellulitis of right lower limb; E87.6 Hypokalemia; K76.89 Other specified diseases of liver; K29.70 Gastritis, unspecified, without bleeding; K21.9 Gastro-esophageal reflux disease without esophagitis; E86.0 Dehydration; R63.4 Abnormal weight loss; D64.9 Anemia, unspecified; M19.90 Unspecified osteoarthritis, unspecified site; J45.909 Unspecified asthma, uncomplicated; I10 Essential (primary) hypertension; F41.8 Other specified anxiety disorders; Z96.643 Presence of artificial hip joint, bilateral; Z96.653 Presence of artificial knee joint, bilateral; Z89.612 Acquired absence of left leg above knee; Z99.3 Dependence on wheelchair
CPT/HCPCS: 36415; 74177; 76705; 78227; 80048; 80053; 80076; 81001; 82150; 83540; 83550; 83605; 83690; 83735; 85025; 85027; 86850; 86900; 86901; 87081; 88304; 88305; 92610; 93005; 96361; 96366; 96367; 96372; 96375; 96376; 99285; A9270; A9537; C1713; C9113; G0378; J0690; J1100; J1650; J2250; J2270; J2405; J2704; J2710; J2805; J3010; J3475; J3480; J7030; J7040; J7120; Q9967

== ENCOUNTER 2023-06-11 16:16 | Inpatient (IN) | payer MEDICARE, MEDICAID, SELFPAY ==
[2023-06-11] VITALS (15 sets, daily range): BP systolic 103–139; BP diastolic 59–70; PULSE 66–84; RESP 13–24; TEMP 36.6; O2SAT 93–100
--- NOTE | ~2023-06-11 | US_ITS ---
EXAMINATION: US venous doppler [facility] DATE: 06/12/2023 09:40 INDICATION: Lower limb edema. TECHNIQUE: Grayscale ultrasound images without and with compression and Doppler ultrasound images of the bilateral lower extremity veins were obtained. COMPARISON: Ultrasound 07/05/2017 FINDINGS: The visualized portions of right common femoral vein, profunda (deep) femoral vein, femoral vein, pop liteal vein, posterior tibial veins, and greater saphenous vein outflow are patent. Bandages obscure the right calf. The visualized portions of left common femoral vein, profunda femoral vein, femoral vein, and greater saphenous vein outflow are patent. There is a left [id number] amputation. IMPRESSION: 1. No deep venous thrombosis. Reviewed, dictated and finalized at location E.
--- NOTE | ~2023-06-11 | XR_ITS ---
EXAMINATION: XR chest 1V portable Exam Date/Time: 06/11/2023 21:25 CDT HISTORY: edema AFTER CHOLECYSECTOMY YESTERDAY Comparison: 01/10/2022. RESULT: Lines, tubes, and devices: Lumbar fusion hardware. Cholecystectomy clips. Lungs and pleura: Mild diffuse reticular opacities. Low volumes with crowding. Bilateral costophreni c angle blunting. Cardiomediastinal silhouette: Stable. Other: No acute osseous or upper abdominal finding. IMPRESSION: Mild interstitial edema with small bilateral effusions. Reviewed, dictated and finalized at location K.
[2023-06-11 21:46] LABS: Basophils Percent Auto 0.5 % (0.2-1.2); Eosinophils Absolute Auto 0.2 K/mm3 (0-0.3); Eosinophils Percent Auto 2.2 % (0-4.4); Hematocrit 31.2 % (37.0-47.0); Hemoglobin 9.9 g/dL (12.0-15.0); Immature Granulocyte Absolute 0.02 K/mm3 (0.00-0.031); Immature Granulocyte Percent A 0.2 % (0-0.5); Lymphocytes Absolute Auto 2.37 K/mm3 (0.9-3.2); Lymphocytes Percent Auto 29.4 % (18.3-44.2); Mean Corpuscular HGB Conc 31.7 g/dl (32-36); Mean Corpuscular Hemoglobin 25.4 pg (26-34); Mean Platelet Volume 9.3 fl (7.4-10.4); Monocytes Absolute Auto 0.7 K/mm3 (0.1-0.6); Monocytes Percent Auto 8.6 % (2.6-8.5); Neutrophils Absolute Auto 4.8 K/mm3 (1.3-6.7); Neutrophils Percent Auto 59.1 % (45.5-73.1); Platelet Count Result 317 k/mm3 (150-375); White Blood Count 8.1 K/mm3 (4.5-10.0)
[2023-06-11 21:56] LABS: Alanine Aminotransferase 10 U/L (6-35); Albumin Level 2.4 g/dL (3.5-5.1); Alkaline Phosphatase 120 U/L (38-126); Anion Gap 4 mmol/L (8-16); Aspartate Amino Transferase 40 U/L (14-36); Bilirubin,Total 0.8 mg/dL (0.2-1.3); Blood Urea Nitrogen 6 mg/dL (7-17); Calcium 8.2 mg/dL (8.4-10.2); Carbon Dioxide 29 mmol/L (22-30); Chloride 101 mmol/L (98-107); Estimated CRCL calculation 86 ml/min; Estimated Glomerular Filt Rate > 60; Glucose 80 mg/dL (65-110); Magnesium 1.6 mg/dL (1.6-2.3); Potassium 3.3 mmol/L (3.4-5.0); Sodium 134 mmol/L (137-145)
[2023-06-11 21:58] LABS: INR 1.1
[2023-06-11 22:00] LABS: Partial Thromboplastin Time 34.3 SECONDS (22.3-36.8)
[2023-06-11 22:07] LABS: NT Pro B Type Natriuretic Pept 446 pg/mL (19.9-100); Troponin I < 0.012 ng/mL (0.000-0.034)
--- NOTE | 2023-06-11 23:05 | PM.IMHP ---
H&P: HPI History of Present Illness Date/Time: 06/11/23 23:05 Chief Complaint: leg swelling Narrative: This is a 67-year-old female with past medical history significant for hypertension, chronic lymphedema, venous stasis ulcer, left AKA. Patient underwent cholecystectomy on 06/07 and was discharged on 06/02 a home patient returns to the emergency room due to bilateral lower extremity swelling with blistering, patient denies any nausea, vomiting, diarrhea, fevers, chills, rigors, shortness of breath, cough, sputum production. Preliminary workup was significant for hemoglobin is 9.9 hematocrit is 30 sodium 134 potassium 3.3 SILK TRIMMER 446 a chest x-ray was reported as: EXAMINATION:? XR chest 1V portable Exam Date/Time:? 06/11/2023 21:25 CDT HISTORY: edema AFTER CHOLECYSTECTOMY YESTERDAY ? Comparison:? 01/10/2022. RESULT: Lines, tubes, and devices:? Lumbar fusion hardware. Cholecystectomy clips. Lungs and pleura:? Mild diffuse reticular opacities. Low volumes with crowding. Bilateral costophrenic angle blunting. Cardiomediastinal silhouette:? Stable. Other:? No acute osseous or upper abdominal finding. ? IMPRESSION: Mild interstitial edema with small bilateral effusions. Review of Systems Review of Systems: bilateral lower extremity swelling Constitutional: Constitutional: Denies chills, Denies fatigue, Denies fever(s), Denies malaise and Denies night sweats Eyes: Eyes: Denies change in vision ENT: Denies dysphagia and Denies odynophagia Cardiovascular: Cardiovascular: Denies chest pain, Reports leg edema, Denies radiating jaw, neck or arm pain, Denies palpitations and Denies paroxysmal nocturnal dyspnea Respiratory: Respiratory: Denies chest congestion, Denies cough, Denies excessive phlegm production and Denies pain on inspiration Gastrointestinal: Gastrointestinal: Denies abdominal pain, Denies dyspepsia, Denies heartburn, Denies diarrhea, Denies nausea and Denies vomiting Genitourinary: Genitourinary: Denies dysuria and Denies flank pain Musculoskeletal: Musculoskeletal: Reports other ( left AKA) Integumentary/Breasts: Skin/Breast: Reports other ( blistering) Neurologic: Denies focal weakness and Denies Sensory deficit (Neuro) Psychiatric: Psychiatric: Reports no additional psychiatric complaints and Reports as per HPI Endocrine: Endocrine: Denies cold intolerance, Denies polyphagia, Denies polydipsia and Denies polyuria Hematologic/Lymphatic: Hematologic/Lymphatic: Reports no additional hematologic/lymphatic complaints and Reports as per HPI Allergic/Immunologic: Allergic/Immunologic: Reports no additional allergic/immunologic complaints and Reports as per HPI [facility] Past Medical History Medical History Anxiety Arthritis Asthma Cellulitis of right leg Depression with anxiety History of left above knee amputation HTN (hypertension) with goal to be determined Lymphedema of right lower extremity Patient denies significant medical history Ulcer of right leg Venous stasis ulcer of ankle with fat layer exposed with varicose veins Surgical History Surgical History H/O cataract extraction History of bilateral knee replacement Left 2013, right 2014 Family History Family History Mother Cancer Father Cancer Social History Social History Social History: The patient is . She lives with her son. She has 2 children. She is retired. The patient is a lifelong nonsmoker. No alcohol marijuana or illicit drugs. Code status full code Smoking status: Never smoker Second hand tobacco smoke exposure: No Alcohol intake: never Substance use: never Substance use type: does not use Lack of Transportation: No Lack of Food: Never True Current Ho
--- NOTE | 2023-06-11 23:10 | ED.GENADULT ---
HPI - General Adult General Chief complaint: Extremity Problem,Nontraumatic Stated complaint: edema Time Seen by Provider: 06/11/23 21:16 History of Present Illness HPI narrative: Patient is a 67-year-old female who presents emerged part with chief complaint of peripheral edema. The patient reports that she was recently in the hospital and has history of lymphedema of her lower extremities. The patient reports that she was discharged home yesterday and reports that her edema has gotten worse and now she has developed blisters on her lower extremities. The patient does report that she is not able to get up and walk around and decided to come into the emergency department as she does not have a visiting nurse until Tuesday. Related Data Home Medications Medication Instructions Recorded Confirmed lisinopril 20 1 tablet PO BID 08/11/20 06/01/23 mg-hydrochlorothiazide 12.5 mg tablet lorazepam 0.5 mg tablet (Ativan) 0.5 mg PO TID PRN Anxiety 08/11/20 06/01/23 ropinirole 4 mg tablet 4 mg PO HS PRN Restless Leg(S) 08/11/20 06/01/23 tramadol 50 mg tablet 50 mg PO Q6H PRN Pain (Scale Score 08/11/20 06/01/23 4-6) atenolol 50 mg tablet (Tenormin) 50 mg PO DAILY 09/10/20 06/01/23 cyclobenzaprine 10 mg tablet 10 mg PO HS PRN BACK SPASM 09/10/20 06/01/23 diazepam 2 mg tablet 2 mg PO Q8H PRN Muscle Spasm 09/10/20 06/01/23 Allergies Allergy/AdvReac Type Severity Reaction Status Date / Time No Known Allergies Allergy Verified 06/07/23 06:26 Review of Systems Review of Systems: A 10 system review of systems was completed on the patient and is negative except for what is stated in the HPI. Nursing and ancillary documentation was reviewed. [facility] Past Medical History Medical History Anxiety Arthritis Asthma Cellulitis of right leg Depression with anxiety History of left above knee amputation HTN (hypertension) with goal to be determined Lymphedema of right lower extremity Patient denies significant medical history Ulcer of right leg Venous stasis ulcer of ankle with fat layer exposed with varicose veins Surgical History Surgical History H/O cataract extraction History of bilateral knee replacement Left 2013, right 2014 Family History Family History Mother Cancer Father Cancer Social History Social History Social History: The patient is . She lives with her son. She has 2 children. She is retired. The patient is a lifelong nonsmoker. No alcohol marijuana or illicit drugs. Code status full code Smoking status: Never smoker Alcohol intake: never Substance use: never Lack of Transportation: No Lack of Food: Never True Current Housing: I Have Housing Concerned About Future Housing: No Difficulty Paying Gas/Electric Bills: No Difficulty Paying for Meds: No Currently Unemployed: No Education: High School Diploma/GED Difficulty w/ Childcare or Family Care: No Gender identity (if verbalized by the patient): Female Sexual Orientation (if Verbalized by the Patient): Straight or Heterosexual Spiritual care concerns: No Exam Narrative: GENERAL: Well-appearing, well-nourished, and in no acute distress. HEAD: Normocephalic, atraumatic. EYES: PERRLA and EOMI. ENT: Nares clear, no rhinorrhea or epistaxis. Mucous membranes moist. NECK: Supple. CHEST: Clear to auscultation. No respiratory distress. HEART: Regular rate and rhythm. No murmur heard. Normal peripheral pulses. ABDOMEN: Soft, nontender, nondistended, normal active bowel sounds. EXTREMITIES: Normal range of motion. 3+ edema. Multiple blisters present on the lower extremities SKIN: Warm, dry, no rash. NEURO: No focal deficits. Alert and oriented x3. PSYCH: Normal m
[2023-06-12] VITALS (11 sets, daily range): BP systolic 116–129; BP diastolic 53–65; PULSE 67–84; RESP 14–20; TEMP 36.7–37.8; O2SAT 92–98; BMI 26.3; BMI 25.4
--- NOTE | 2023-06-12 07:10 | ADMGEN ---
This patient, Daria Pickett, was admitted to Medical Room 348-. Patient/family oriented to hospital policies and general routines including ID bracelet, bed and alarms, visiting hours, pain management, procedures, bathroom and other care routines, personal items, smoking policy, room service/diet, and visiting hours. Information on how to activate the Rapid Response Team has been discussed. Patient/Family are encouraged to report perceived risks to care and to ask questions if they do not understand what they are told or what they should do.
[2023-06-12] MEDS: hydroCHLOROthiazide 12.5 MG CAPSULE PO ×2 (09:17→17:56)
[2023-06-12] MEDS: atenoloL 50 MG TABLET PO (09:17)
[2023-06-12] MEDS: lisinopriL 20 MG TABLET PO ×2 (09:17→17:56)
[2023-06-12] MEDS: polyethylene glycoL 3350 17 GM POWD.PACK PO ×2 (09:17→17:56)
[2023-06-12] MEDS: PANTOPRAZOLE 40 MG TABLET PO (09:18)
[2023-06-12] MEDS: MAGNESIUM OXIDE 400 MG TABLET PO (09:18)
--- NOTE | 2023-06-12 11:36 | PM.IMPN ---
Progress Note: A&P Assessment and Plan (1) Edema, peripheral: Code(s): R60.9 - Edema, unspecified Status: Acute Assessment and Plan: Likely secondary to fluid overload during the perioperative period Will diurese fluid restriction to 1500 cc daily echocardiogram in a.m. (2) Lymphedema of right lower extremity: Code(s): I89.0 - Lymphedema, not elsewhere classified Status: Chronic Assessment and Plan: venous Doppler in a.m. (3) Venous stasis ulcer of ankle with fat layer exposed with varicose veins: Qualifiers: Laterality: left Qualified Code(s): I83.023 - Varicose veins of left lower extremity with ulcer of ankle; L97.322 - Non-pressure chronic ulcer of left ankle with fat layer exposed Code(s): I83.003 - Varicose veins of unspecified lower extremity with ulcer of ankle; L97.302 - Non-pressure chronic ulcer of unspecified ankle with fat layer exposed Status: Resolved Assessment and Plan: local care (4) Ulcer of right leg: Qualifiers: Non-pressure ulcer stage: unspecified non-pressure ulcer stage Qualified Code(s): L97.919 - Non-pressure chronic ulcer of unspecified part of right lower leg with unspecified severity Code(s): L97.919 - Non-pressure chronic ulcer of unspecified part of right lower leg with unspecified severity Status: Chronic Assessment and Plan: local care (5) Hypertension: Qualifiers: Hypertension type: unspecified Qualified Code(s): I10 - Essential (primary) hypertension Code(s): I10 - Essential (primary) hypertension Status: Chronic Assessment and Plan: continue home meds continue to monitor (6) Normocytic anemia: Code(s): D64.9 - Anemia, unspecified Status: Acute Assessment and Plan: stable follow-up in outpatient setting Subjective Date/time seen: 06/12/23 11:36 Interval history: No complaints Exam Narrative: patient is laying in bed Const: General: comfortable, no acute distress, well developed, alert, awake and average body habitus Nutritional Appearance: average body habitus Orientation/consciousness: patient oriented x3 HENMT: Head: normal to inspection, normocephalic and atraumatic Ears: hearing grossly normal bilaterally Face/Nose/Sinus: normal facial exam Face and sinus: normal facial exam Eyes: General: appearance normal, both eyes and all related structures Pupils: Equal, round and reactive pupils present EOM: EOMs intact bilaterally Neck: Neck: full ROM, no lymphadenopathy and no JVD Thyroid: thyroid normal Lymphatic: no lymphadenopathy noted Resp: Effort & Inspection: normal respiratory effort and able to speak in complete sentences Auscultation: clear to auscultation bilaterally Cardio: Jugular venous distension: no JVD Rate: regular rate Rhythm: regular rhythm Heart sounds: S1 normal heart sound present and S2 normal heart sound present : General: Yes deferred Skin: Rashes: no rashes Wounds: no wounds Other: right lower extremity blisters and wounds dressing in place sacral decubitus Neuro: General: patient oriented x3, CN's II-XI intact bilaterally and Unable to assess gait Cranial nerves: Yes CN's II-XII intact bilaterally and Yes Equal, round and reactive pupils present Cognition (Neuro): normal cognition Speech: normal speech Gait exam (Neuro): Normal gait present and Unable to assess gait Motor exam (neuro): 5/5 motor strength present throughout Sensory Exam: No Sensory deficit (Neuro) Other: left AKA Extrem: General: normal to inspection, full ROM, no joint enlargement and no pedal edema Left lower extremity: knee Details: other ( [place] amputation) Objective Data Vital Signs Vital Signs: Vital Signs - 24 hr 06/11/23 16:33 06/11/23 21:00 06/11/23 21:17 Temperature 97.8 F Pulse Rate 84 76 70 Respiratory Rate 14 13 24 H Blood Pressure 103/65 Pulse Oximet
[2023-06-12] MEDS: FUROSEMIDE INJ 40 MG/4 ML VIAL IV PUSH (21:10)
[2023-06-13] VITALS (8 sets, daily range): BP systolic 115–120; BP diastolic 60–63; PULSE 69–82; RESP 18–20; TEMP 36.9–37.2; O2SAT 93–97
--- NOTE | 2023-06-13 06:00 | ECHO_ITS ---
Patient Info Name: Daria Pickett Age: 67 years : 1955 Gender: Female Ht: 62 in Wt: 127 lbs BSA: 1.59 m2 HR: 82 bpm BP: 120 / 60 mmHg Heart Rhythm: Sinus Rhythm Technical Quality: Fair Exam Date: 06/13/2023 11:31 AM Exam Location: [facility] Pulmonary Exam Room: 348 Patient Status: Inpatient Admit Date: 06/12/2023 Staff Ordering Physician: Efrain Alford MD Cap Cutter: Kristen Downs RDCS Attending Provider: Ankush Gamble MD Referring Physician: Rocío BENITEZ; Exam Type: CA echo dop color flow w con Study Info Indications - peripheral edema Complete two-dimensional, color flow and Doppler transthoracic echocardiogram is performed with contrast to opacify the left ventricle and to improve the deliniation of the left ventricle endocardial borders. Contrast/Agitated Saline Contrast/Ag. Saline: Definity Amount: 1.00 ml Administered By: Kristen Downs [facility] Existing IV Access: Yes IV Access Condition: patent with no signs of infiltration Summary 1. Definity contrast injected to improve visualization. 2. Normal left ventricular size with hyperdynamic systolic function and grade 1 diastolic noncompliance. 3. 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 4. Trivial aortic valve regurgitation. Left Ventricle Left ventricular chamber dimension is normal. Left ventricular systolic function is hyperdynamic, estimated at >70%. The left ventricular diastolic function is grade I diastolic dysfunction. Right Ventricle Right ventricular chamber dimension is normal. Left Atria Left atrial chamber dimension is normal. Aortic Valve The aortic valve is trileaflet. There is trace aortic valve regurgitation. Pulmonic Valve The pulmonic valve is normal. Mitral Valve The mitral valve has normal leaflets. Tricuspid Valve The tricuspid valve leaflets are normal. Pericardium/Pleural The pericardium appears normal. Aorta The aortic root size at the sinus of Valsalva is normal. Left Ventricular Outflow Tract Name Value Normal LVOT 2D LVOT Diameter 2.00 cm LVOT Doppler LVOT Peak Gradient 4 mmHg LVOT Mean Gradient 3 mmHg LVOT VTI 19.02 cm LVOT VTI/AV VTI Ratio 0.98 LVOT Stroke Volume 59.43 ml LVOT CO 15.24 l/min LVOT CI 9.55 L/min/m2 Pulmonic Valve Name Value Normal PV Doppler PV Peak Gradient 5 mmHg Mitral Valve Name Value Normal MV Doppler MV Decel [place] 156.73 cm/s2 MV PH
[2023-06-13] MEDS: polyethylene glycoL 3350 17 GM POWD.PACK PO ×2 (08:57→18:01)
[2023-06-13] MEDS: lisinopriL 20 MG TABLET PO ×2 (08:58→18:03)
[2023-06-13] MEDS: PANTOPRAZOLE 40 MG TABLET PO (08:58)
[2023-06-13] MEDS: MAGNESIUM OXIDE 400 MG TABLET PO (08:58)
[2023-06-13] MEDS: atenoloL 50 MG TABLET PO (08:59)
[2023-06-13] MEDS: hydroCHLOROthiazide 12.5 MG CAPSULE PO ×2 (08:59→18:01)
[2023-06-13] MEDS: FUROSEMIDE INJ 40 MG/4 ML VIAL IV PUSH (08:59)
[2023-06-13 10:21] LABS: Anion Gap 2 mmol/L (8-16); Blood Urea Nitrogen 3 mg/dL (7-17); Carbon Dioxide 31 mmol/L (22-30); Chloride 101 mmol/L (98-107); Estimated CRCL calculation 86 ml/min; Estimated Glomerular Filt Rate > 60; Glucose 84 mg/dL (65-110); Sodium 134 mmol/L (137-145)
--- NOTE | 2023-06-13 11:54 | PM.DS ---
DS: Admitting Diagnosis Discharge Date June 13, 2023 Admitting Diagnosis Lower extremity edema. Right lower extremity wound. DS: Discharge Diagnosis Discharge Diagnosis (1) Edema, peripheral: Code(s): R60.9 - Edema, unspecified Status: Acute Assessment and Plan: Likely secondary to fluid overload during the perioperative period Will diurese fluid restriction to 1500 cc daily echocardiogram in a.m. (2) Lymphedema of right lower extremity: Code(s): I89.0 - Lymphedema, not elsewhere classified Status: Chronic Assessment and Plan: venous Doppler in a.m. (3) Venous stasis ulcer of ankle with fat layer exposed with varicose veins: Qualifiers: Laterality: left Qualified Code(s): I83.023 - Varicose veins of left lower extremity with ulcer of ankle; L97.322 - Non-pressure chronic ulcer of left ankle with fat layer exposed Code(s): I83.003 - Varicose veins of unspecified lower extremity with ulcer of ankle; L97.302 - Non-pressure chronic ulcer of unspecified ankle with fat layer exposed Status: Resolved Assessment and Plan: local care (4) Ulcer of right leg: Qualifiers: Non-pressure ulcer stage: unspecified non-pressure ulcer stage Qualified Code(s): L97.919 - Non-pressure chronic ulcer of unspecified part of right lower leg with unspecified severity Code(s): L97.919 - Non-pressure chronic ulcer of unspecified part of right lower leg with unspecified severity Status: Chronic Assessment and Plan: local care (5) Hypertension: Qualifiers: Hypertension type: unspecified Qualified Code(s): I10 - Essential (primary) hypertension Code(s): I10 - Essential (primary) hypertension Status: Chronic Assessment and Plan: continue home meds continue to monitor (6) Normocytic anemia: Code(s): D64.9 - Anemia, unspecified Status: Acute Assessment and Plan: stable follow-up in outpatient setting DS: Summary Hospital Course Hospital Course: Patient is a 59-year-old female who has a left lower extremity amputation. She came in with right lower extremity edema. She was recently hospitalized for cholecystectomy. Likely received too many fluids on admission. She came in with worsening lower extremity edema and wounds on her right lower extremity as well. These were chronic. Not infected per Wound Care. No antibiotics needed. Diuretics were adjusted and patient can be discharged home with home health Time Spent with Patient Time attestation: Total time spent providing and/or coordinating discharge services: Exam Narrative: patient is laying in bed Const: General: comfortable, no acute distress, well developed, alert, awake and average body habitus Nutritional Appearance: average body habitus Orientation/consciousness: patient oriented x3 HENMT: Head: normal to inspection, normocephalic and atraumatic Ears: hearing grossly normal bilaterally Face/Nose/Sinus: normal facial exam Face and sinus: normal facial exam Eyes: General: appearance normal, both eyes and all related structures Pupils: Equal, round and reactive pupils present EOM: EOMs intact bilaterally Neck: Neck: full ROM, no lymphadenopathy and no JVD Thyroid: thyroid normal Lymphatic: no lymphadenopathy noted Resp: Effort & Inspection: normal respiratory effort and able to speak in complete sentences Auscultation: clear to auscultation bilaterally Cardio: Jugular venous distension: no JVD Rate: regular rate Rhythm: regular rhythm Heart sounds: S1 normal heart sound present and S2 normal heart sound present : General: Yes deferred Skin: Rashes: no rashes Wounds: no wounds Other: right lower extremity blisters and wounds dressing in place sacral decubitus Neuro: General: patient oriented x3, CN's II-XI intact bilaterally and Unable to assess gait Cranial nerves: Yes CN's II-XII intact katheryn
[2023-06-13] MEDS: PERFLUTREN LIPID MICROSPHERES 1.5 ML VIAL DILUTED TO 10 ML TOTAL VOLUME IV PUSH (11:55)
--- NOTE | 2023-06-13 16:36 | PCPTNOTE ---
On 06/13/23, the student, ESTEFANIA Campbell, provided care and completed [facility] documentation on this patient. I have reviewed the student's documentation and agree with the findings.
--- NOTE | 2023-06-13 19:46 | PC.NURSE ---
Patient was provided with their discharged paperwork and educated on discharge instructions. Patient was picked up by [facility] at 1947. Patient left with all of their belongings.
== END 2023-06-13 19:51 | disposition home health service (06) | DRG 641 ==
LOC: ANHED 23:12 → ANH3MED 23:30
PROVIDERS: Admitting Provider Internal Medicine; Emergency Provider Emergency Medicine; PCP Family Medicine; Visit Provider Chiropractor
DX: E87.70 Fluid overload, unspecified (principal); L97.302 Non-pressure chronic ulcer of unspecified ankle with fat layer exposed; I83.003 Varicose veins of unspecified lower extremity with ulcer of ankle; I89.0 Lymphedema, not elsewhere classified; I10 Essential (primary) hypertension; J45.909 Unspecified asthma, uncomplicated; D64.9 Anemia, unspecified; F41.9 Anxiety disorder, unspecified; Z96.651 Presence of right artificial knee joint; F32.A Depression, unspecified; Z89.612 Acquired absence of left leg above knee
CPT/HCPCS: 36415; 71045; 80048; 80053; 83735; 83880; 84484; 85025; 85610; 85730; 93970; 97161; 97165; 97530; 99285; A9270; C8929; G0378; J1940; Q9957

== ENCOUNTER 2023-06-27 10:15 | Inpatient (IN) | payer MEDICARE, MEDICAID, SELFPAY ==
[2023-06-27] VITALS (37 sets, daily range): BP systolic 97–141; BP diastolic 47–84; PULSE 69–89; RESP 13–26; TEMP 36.2–36.9; O2SAT 88–100; BMI 20.1
--- NOTE | ~2023-06-27 | XR_ITS ---
EXAMINATION: XR chest 2V DATE: 06/27/2023 10:48 INDICATION: Weakness. TECHNIQUE: Frontal and lateral views of the chest were obtained. COMPARISON: Chest one view 06/11/2023, chest 2 views 01/10/2022 FINDINGS: There is no pneumonia, pleural effusion, or pneumothorax. The heart size is normal. Surgica l clips in the right upper quadrant are likely from cholecystectomy. There are changes of posterior f usion procedure in lumbar spine. There are multiple vertebral body fractures that are new from . IMPRESSION: 1. No acute cardiopulmonary disease. 2. Multiple age-indeterminate vertebral body fractures that are new from 01/10/2022. Reviewed, dictated and finalized at location A. IMPRESSION: 1. No acute cardiopulmonary disease. 2. Multiple age-indeterminate vertebral body fractures that are new from .
--- NOTE | ~2023-06-27 | XR_ITS ---
EXAM: XR abdomen/kub 1V DATE: 06/27/2023 21:57 HISTORY: intractable nausea and vomiting . COMPARISON: None available. FINDINGS: Clear lung bases. Cholecystomy clips. Posterior lumbar fusion hardware. Bilateral hip arth roplasties paucity of small bowel gas. Normal gastric and large bowel gas pattern. No organomegaly. N o abnormal abdominal calcification. Osteopenia. Lumbar scoliosis.. IMPRESSION: No definite evidence of large bowel ileus or obstruction. Paucity of small bowel gas limi ts evaluation for small bowel obstruction or ileus. Reviewed, dictated and finalized at location K. IMPRESSION: No definite evidence of large bowel ileus or obstruction. Paucity o f small bowel gas limits evaluation for small bowel obstruction or ileus.
--- NOTE | ~2023-06-27 | US_ITS ---
EXAMINATION: US venous doppler LE RT DATE: 06/28/2023 10:46 INDICATION: Right lower limb edema. TECHNIQUE: Grayscale ultrasound images without and with compression and Doppler ultrasound images of the right lower extremity veins were obtained. COMPARISON: Ultrasound 06/12/2023 FINDINGS: The visualized portions of right common femoral vein, profunda (deep) femoral vein, femoral vein, pop liteal vein, peroneal veins, posterior tibial veins, and greater saphenous vein outflow are patent. IMPRESSION: 1. No deep venous thrombosis. Reviewed, dictated and finalized at location A.
--- NOTE | ~2023-06-27 | CT_ITS ---
EXAMINATION: CT abdomen wo con DATE: 06/28/2023 10:50 INDICATION: Nausea and vomiting. TECHNIQUE: Computed tomography (CT) of the abdomen was performed without intravenous contrast. Automa ernst exposure control and iterative reconstruction technique were employed. The dose-length product wa s 319.45 mGy-cm. COMPARISON: CT abdomen and pelvis 06/01/2023 FINDINGS: The visualized portions of the lung bases demonstrate mild atelectasis. There are small ple ural effusions. The heart size is normal. No pericardial effusion. There is diffuse hepatic steatosis . There are changes of cholecystectomy. The spleen, pancreas, and adrenal glands are normal. There ar e peripelvic cysts in the kidneys measuring up to 22 mm in the right. There is no urolithiasis. There are no dilated loops of bowel. There are no pathologically enlarged lymph nodes. There are changes o f posterior fusion procedure at L4-L5. There is a subacute burst fracture of T9 without change. There are chronic burst fractures of T11, T12, and L1. There are chronic compression fracture of L3 and L4 . IMPRESSION: 1. Diffuse hepatic steatosis. 2. Small pleural effusions. Reviewed, dictated and finalized at location A.
--- NOTE | 2023-06-27 10:24 | ECG_ITS ---
Measurements Intervals Edwards Rate: 93 P: 55 IL: 144 QRS: -25 QRSD: 94 T: 145 QT: 364 QTc: 454 Interpretive Statements SINUS RHYTHM BORDERLINE LEFT AXIS DEVIATION [QRS AXIS < -20] LEFT VENTRICULAR HYPERTROPHY AND ST-T CHANGE [VOLTAGE CRITERIA PLUS ST/T ABNORMALITY] ABNORMAL ECG COMPARED TO ECG 06/06/2023 08:53:53 HEART RATE IS INCREASED/NO OTHER SIGNIFICANT CHANGE Electronically Signed On 06-27-2023 16:58:25 CDT by Alvin Kaur M.D.
--- NOTE | 2023-06-27 10:39 | PC.NURSE ---
Pt taken to radiology on monitor
[2023-06-27 10:45] LABS: Basophils Percent Auto 0.3 % (0.2-1.2); Eosinophils Percent Auto 0.1 % (0-4.4); Hematocrit 32.6 % (37.0-47.0); Hemoglobin 10.6 g/dL (12.0-15.0); Immature Granulocyte Absolute 0.06 K/mm3 (0.00-0.031); Immature Granulocyte Percent A 0.5 % (0-0.5); Lymphocytes Percent Auto 14.5 % (18.3-44.2); Mean Corpuscular HGB Conc 32.5 g/dl (32-36); Mean Corpuscular Hemoglobin 26.8 pg (26-34); Mean Corpuscular Volume 82.5 fl (80-100); Mean Platelet Volume 9.5 fl (7.4-10.4); Monocytes Absolute Auto 0.7 K/mm3 (0.1-0.6); Monocytes Percent Auto 5.7 % (2.6-8.5); Neutrophils Absolute Auto 9.8 K/mm3 (1.3-6.7); Neutrophils Percent Auto 78.9 % (45.5-73.1); Nucleated Red Blood Cells Perc 0.2 % (0.0-0.2); Platelet Count Result 363 k/mm3 (150-375); Red Blood Count 3.95 M/mm3 (4.2-5.4); Red Cell Distribution Width 22.9 % (11.5-14.5); White Blood Count 12.4 K/mm3 (4.5-10.0)
[2023-06-27 10:54] LABS: Lipase 27 U/L (23-300)
[2023-06-27 10:56] LABS: Alanine Aminotransferase 21 U/L (6-35); Alkaline Phosphatase 164 U/L (38-126); Anion Gap 13 mmol/L (8-16); Aspartate Amino Transferase 60 U/L (14-36); Bilirubin,Total 1.8 mg/dL (0.2-1.3); Blood Urea Nitrogen 13 mg/dL (7-17); Calcium 8.2 mg/dL (8.4-10.2); Carbon Dioxide 20 mmol/L (22-30); Chloride 95 mmol/L (98-107); Estimated CRCL calculation 29 ml/min; Estimated Glomerular Filt Rate 41; Glucose 90 mg/dL (65-110); Potassium 3.3 mmol/L (3.4-5.0); Sodium 128 mmol/L (137-145)
[2023-06-27 11:07] LABS: Anisocytosis 3+ (NORMAL); Burr Cells 1+ (NORMAL); Ovalocytes 1+ (NORMAL); Platelet Estimate Adequate (Adequate); Schistocytes None Seen (NORMAL)
--- NOTE | 2023-06-27 12:13 | PC.NURSE ---
Pt unable to void, attempted straight cath with no results
[2023-06-27] MEDS: SODIUM CHLORIDE 0.9% IV 1,000 ML 999 ML IV CONT ×2 (12:50→14:38)
--- NOTE | 2023-06-27 14:45 | PC.NURSE ---
Attempted to urinate without success. Pt denies feeling the urge to urinate. ERP aware.
--- NOTE | 2023-06-27 15:13 | ED.GENADULT ---
HPI - General Adult General Chief complaint: Weakness Stated complaint: weak, n/v Time Seen by Provider: 06/27/23 10:41 History of Present Illness HPI narrative: Patient is a 67-year-old female who presents to the ER with generalized weakness. Worsening over the last week. Associated with nausea and vomiting. Patient recently underwent cholecystectomy in the last 3 weeks. Denies fevers or chills or sweats. Reports increased weakness with a fall last night. She did not strike her head or lose consciousness. She has some redness and discomfort to her right lower extremity that she reports is worse than typical. Related Data Home Medications Medication Instructions Recorded Confirmed lisinopril 20 1 tablet PO BID 08/11/20 06/27/23 mg-hydrochlorothiazide 12.5 mg tablet lorazepam 0.5 mg tablet (Ativan) 0.5 mg PO TID PRN Anxiety 08/11/20 06/27/23 ropinirole 4 mg tablet 4 mg PO HS PRN Restless Leg(S) 08/11/20 06/27/23 tramadol 50 mg tablet 50 mg PO Q6H PRN Pain (Scale Score 08/11/20 06/27/23 4-6) atenolol 50 mg tablet (Tenormin) 50 mg PO DAILY 09/10/20 06/27/23 cyclobenzaprine 10 mg tablet 10 mg PO HS PRN BACK SPASM 09/10/20 06/27/23 diazepam 2 mg tablet 2 mg PO Q8H PRN Muscle Spasm 09/10/20 06/27/23 Allergies Allergy/AdvReac Type Severity Reaction Status Date / Time No Known Allergies Allergy Verified 06/27/23 17:46 Review of Systems Review of Systems: All systems reviewed & are unremarkable except as noted in HPI and below Constitutional: Constitutional: Denies chills, Reports fatigue and Denies fever(s) ENT: Denies nasal congestion and Denies sore throat Cardiovascular: Cardiovascular: Denies chest pain, Denies rapid heart rate and Denies radiating jaw, neck or arm pain Respiratory: Respiratory: Denies cough and Denies dyspnea Gastrointestinal: Gastrointestinal: Denies abdominal pain, Reports nausea and Reports vomiting Integumentary/Breasts: Skin/Breast: Reports erythema, Denies rash and Denies skin ulcer Neurologic: Denies headache(s), Denies focal weakness and Denies numbness PMFSH Past Medical History Medical History (Updated 06/27/23 @ 20:15 by Chapito Cruz MD) Anxiety Arthritis Asthma Chronic anemia Depression with anxiety Hypertension Lymphedema of right lower extremity Surgical History Surgical History (Updated 06/27/23 @ 18:25 by Zahraa Weber PA-C) History of bilateral cataract extraction History of bilateral knee replacement Left 2014 Right 2015. History of left above knee amputation Family History Family History Mother Cancer Father Cancer Social History Social History (Updated 06/27/23 @ 18:35 by Zahraa Weber PA-C) Social History: Surrogate medical decision maker: Trey Pickett, [place]. Code status: Full code. Smoking status: Never smoker Second hand tobacco smoke exposure: No Alcohol intake: never Substance use: never Substance use type: does not use Lack of Transportation: No Lack of Food: Never True Current Housing: I Have Housing Concerned About Future Housing: No Difficulty Paying Gas/Electric Bills: No Difficulty Paying for Meds: No Currently Unemployed: No Education: High School Diploma/GED Difficulty w/ Childcare or Family Care: No Additional living arrangements comments: . Lives with son in [place]. Spiritual care concerns: No Exam Narrative: GENERAL: Chronically ill-appearing, well-nourished, and in no acute distress. HEAD: Normocephalic, atraumatic. ENT: Mucous membranes moist. NECK: Supple. CHEST: Clear to auscultation. No respiratory distress. HEART: Regular rate and rhythm. Normal peripheral pulses. ABDOMEN: Soft, nontender, nondistended. EXTREMITIES: Left AKA. Right lower extremity with mild edema with erythema and warmth below the knee. There are some breaks in the skin noted. SKIN: Warm, dry, no rash. NEURO: A
[2023-06-27] MEDS: ceFAZolin 1 GM/NS 50 ML 1 GM/50 ML BAG IVPB (16:03)
--- NOTE | 2023-06-27 17:30 | ADMGEN ---
This patient, Daria Pickett, was admitted to [facility] Surg Room 317-01. Patient/family oriented to hospital policies and general routines including ID bracelet, bed and alarms, visiting hours, pain management, procedures, bathroom and other care routines, personal items, smoking policy, room service/diet, and visiting hours. Information on how to activate the Rapid Response Team has been discussed. Patient/Family are encouraged to report perceived risks to care and to ask questions if they do not understand what they are told or what they should do.
[2023-06-27] MEDS: LACTATED RINGERS 1,000 ML 125 ML IV CONT (17:55)
--- NOTE | 2023-06-27 18:21 | PM.IMHP ---
H&P: HPI History of Present Illness Date/Time: 06/27/23 18:00 Chief Complaint: Weakness, nausea, vomiting. Narrative: This is a 67-year-old female with hypertension, asthma, anxiety who presented to the emergency department via EMS from home for evaluation of weakness, nausea, and vomiting. The patient provides the following history. She is known to the hospitalist service from a recent admission last month after presenting with similar complaints. She had a laparoscopic cholecystectomy on 06/07/[address] Bates for acute on chronic cholecystitis with cholelithiasis and was discharged on the . She was readmitted the following day with volume overload, felt to be related to fluid received in the perioperative period, and she was diuresed with improvement in her swelling. She has been back at home since the and she has not been doing well. She has daily nausea and vomiting and has not been able to hold much down the way of food. She has become increasingly weak and came back in today for evaluation. She denies fever, headache, dysphagia, epigastric pain, abdominal pain, bloating, belching, bloody in bilious emesis, diarrhea, and dysuria. In the ED: She was afebrile on arrival. Blood pressures have thus far been stable with occasional readings at the low end of normal. Labs were significant for a WBC count of 12.4, hemoglobin 10.6, sodium 128, potassium 3.3, chloride 95, carbon dioxide 20, BUN 13, creatinine 1.30 (baseline creatinine is about 0.40), total bilirubin 1.8, AST 60, ALT 21, alkaline phosphatase 164, total protein 7.0, albumin 3.0. UA was positive for 2+ protein, 1+ ketones, 2+ bilirubin, trace leukocyte esterase, 3 to 5 RBC, 0 to 5 WBC, and greater than 20 casts. Chest x-ray showed no acute cardiopulmonary disease but did note multiple age-indeterminate vertebral body fractures are new from 01/10/2022. She received 2 L of normal saline in the ED and she is being admitted in this setting for further hydration given acute kidney injury. Her glucose has been dropping into the 40s and 50s since arrival to the floor and she has required several doses dextrose. She is not diabetic. Review of Systems Review of Systems: Twelve systems were reviewed and are negative except for as per HPI. [facility] Past Medical History Medical History (Updated 06/27/23 @ 21:51 by Zahraa Weber PA-C) Anxiety Arthritis Asthma Chronic anemia Depression with anxiety Hypertension Lymphedema of right lower extremity Surgical History Surgical History (Updated 06/27/23 @ 21:45 by Zahraa Weber PA-C) History of bilateral carpal tunnel release History of bilateral cataract extraction History of bilateral knee replacement Left 2014 Right 2015. History of left above knee amputation History of tubal ligation Family History Family History Mother Cancer Father Cancer Social History Social History Social History: Surrogate medical decision maker: Trey Pickett, [place]. Code status: Full code. Smoking status: Never smoker Second hand tobacco smoke exposure: No Alcohol intake: never Substance use: never Substance use type: does not use Lack of Transportation: No Lack of Food: Never True Current Housing: I Have Housing Concerned About Future Housing: No Difficulty Paying Gas/Electric Bills: No Difficulty Paying for Meds: No Currently Unemployed: No Education: High School Diploma/GED Difficulty w/ Childcare or Family Care: No Additional living arrangements comments: . Lives with son in [place]. Spiritual care concerns: No Meds Home Medications and Allergies Home Medications Medication Instructions Recorded Confirmed Type lisinopril 20 1 tablet PO BID 08/11/20 06/27/23 History mg-hydrochlorothiazide 12.5 mg tablet lorazepam 0.5 mg tablet (Ativan) 0.5 mg PO TID
[2023-06-27 18:45] LABS: Anion Gap 8 mmol/L (8-16); Blood Urea Nitrogen 11 mg/dL (7-17); Carbon Dioxide 19 mmol/L (22-30); Chloride 100 mmol/L (98-107); Estimated CRCL calculation 34 ml/min; Estimated Glomerular Filt Rate 49; Glucose 58 mg/dL (65-110); Magnesium 1.4 mg/dL (1.6-2.3); Potassium 2.4 mmol/L (3.4-5.0); Sodium 127 mmol/L (137-145)
[2023-06-27 18:49] LABS: Glucose Point of Care 47 mg/dl (65-105)
[2023-06-27 19:08] LABS: Glucose Point of Care 47 mg/dl (65-105)
[2023-06-27] MEDS: DEXTROSE 50% 25 GM/50 ML SYRINGE IV PUSH (19:13)
[2023-06-27] MEDS: SODIUM CHLORIDE 0.9% IV 1,000 ML 75 ML IV CONT (19:20)
[2023-06-27] MEDS: MAGNESIUM SULFATE 3GM/D5W100ML 3 GM/100 ML BAG IVPB (19:20)
[2023-06-27 19:29] LABS: Creatine Kinase 53 U/L (30-135)
[2023-06-27 19:38] LABS: Glucose Point of Care 110 mg/dl (65-105)
[2023-06-27] MEDS: KCL 40 MEQ/WATER 100 ML 100 ML 25 ML IVPB (20:35)
[2023-06-27 21:05] LABS: Glucose Point of Care 108 mg/dl (65-105)
[2023-06-27 23:39] LABS: Glucose Point of Care 81 mg/dl (65-105)
[2023-06-28] VITALS (10 sets, daily range): BP systolic 93–103; BP diastolic 45–53; PULSE 54–87; RESP 16–20; TEMP 36.3–37.2; O2SAT 93–100; BMI 21.2
[2023-06-28] MEDS: CEFAZOLIN IVPB (01:51)
[2023-06-28] MEDS: SODIUM CHLORIDE 0.9% IVPB (01:51)
[2023-06-28 02:37] LABS: Hematocrit 25.9 % (37.0-47.0); Hemoglobin 8.6 g/dL (12.0-15.0); Mean Corpuscular HGB Conc 33.2 g/dl (32-36); Mean Corpuscular Hemoglobin 27.1 pg (26-34); Mean Corpuscular Volume 81.7 fl (80-100); Mean Platelet Volume 9.5 fl (7.4-10.4); Platelet Count Result 230 k/mm3 (150-375); Red Blood Count 3.17 M/mm3 (4.2-5.4); Red Cell Distribution Width 22.5 % (11.5-14.5)
[2023-06-28 02:51] LABS: Alanine Aminotransferase 17 U/L (6-35); Albumin Level 1.9 g/dL (3.5-5.1); Alkaline Phosphatase 129 U/L (38-126); Anion Gap 6 mmol/L (8-16); Aspartate Amino Transferase 52 U/L (14-36); Bilirubin,Total 1.2 mg/dL (0.2-1.3); Blood Urea Nitrogen 11 mg/dL (7-17); Carbon Dioxide 18 mmol/L (22-30); Chloride 102 mmol/L (98-107); Estimated CRCL calculation 37 ml/min; Estimated Glomerular Filt Rate 55; Glucose 60 mg/dL (65-110); Magnesium 2.9 mg/dL (1.6-2.3); Potassium 3.2 mmol/L (3.4-5.0); Sodium 126 mmol/L (137-145)
[2023-06-28] MEDS: DEXTROSE 50% 25 GM/50 ML SYRINGE IV PUSH ×2 (03:15→05:40)
[2023-06-28] MEDS: ONDANSETRON INJ 4 MG/2 ML VIAL IV PUSH (03:15)
[2023-06-28 03:36] LABS: Glucose Point of Care 115 mg/dl (65-105)
[2023-06-28 04:30] LABS: Appearance Urine Turbid (Clear); Bacteria Urine None Seen /hpf; Bilirubin Urine 1+ (Negative); Blood Urine 2+ (Negative); Color Urine Dark Yellow (Yellow); Glucose Urine UA Negative (Negative); Ketones Urine Trace mg/dL (Negative); Leukocyte Esterase Ur 3+ LEU/UL (Negative); Nitrate Urine Negative (Negative); Protein Urine 2+ mg/dL (Negative); RBC Urine 0-2 /hpf (0-2); Specific Grav Ur 1.013 (1.001-1.035); Squamous Epithelial Cell Urine None seen /hpf (Few); WBC Clumps Urine Present /HPF; WBC Urine >100 /hpf; pH Urine 5.5 (5.0-9.0)
[2023-06-28 04:31] LABS: Add Urine Microscopic? YES
[2023-06-28 05:15] LABS: Glucose Point of Care 86 mg/dl (65-105)
[2023-06-28 06:19] LABS: Glucose Point of Care 121 mg/dl (65-105)
[2023-06-28 08:07] LABS: Glucose Point of Care 93 mg/dl (65-105)
--- NOTE | 2023-06-28 08:51 | PM.IMPN ---
Progress Note: A&P Assessment and Plan (1) Acute kidney injury: Code(s): N17.9 - Acute kidney failure, unspecified Status: Acute Assessment and Plan: Cr on admission was 1.30 expected to be pre-renal -Fluid resuscitated in the ED with maintenance fluids ordered -Holding nephrotoxic agents -Cr 1.0 this am -continue daily labs (2) Electrolyte abnormality: Code(s): E87.8 - Other disorders of electrolyte and fluid balance, not elsewhere classified Status: Acute Assessment and Plan: Hypokalemia, hypomagnesemia, hyponatremia, hypoglycemia. Related to Nausea and vomiting as well as setting of infection. -Mg 1.4, corrected now elevated at 2.9 -K+ 2.4, correcting now 3.2 -Na 128, still low 126 -Repeat BMP now. Will trend Na+ Q 6 hours -IV fluids with NS at 75 ml per hour -Add NaCL tabs 1 gram BID refused due to vomiting -Tele -IVP D5 as needed. -Dietary concerns, poor appetite, low albumin. Consult to dietitian and recommendations are appreciated. (3) Intractable nausea and vomiting: Code(s): R11.2 - Nausea with vomiting, unspecified Status: Acute Assessment and Plan: KUB without concerns for obstruction. -PRN zofran for nausea -diet as tolerated -CT abdomen wo contrast negative for process to explain symptoms (4) Dehydration: Code(s): E86.0 - Dehydration Status: Acute Assessment and Plan: Related to vomiting -Fluid resuscitated in the ED, now on maintenance fluids NS @ 75 ml per hour -Blood pressures are soft. SBPs in the 90's. -Vitals Q 4 hours -holding antihypertensives -Albumin low 1.9. Will give 5% 500 ml albumin once (5) Cellulitis of leg: Code(s): L03.119 - Cellulitis of unspecified part of limb Status: Acute Assessment and Plan: Redness, swelling to RLE -Recent abdominal surgery in May and not on anticoagulation -Order venous doppler to rule out DVT-was negative -Started on Cefazolin -Wound care was consulted in May for right lower extremity with similar presentation. Yeast and fluid filled blisters noted at that time. Will re-consult wound care and their recommendations are appreciated. (6) Hypertension: Code(s): I10 - Essential (primary) hypertension Status: Acute Assessment and Plan: On atenolol, lisinopril-hydrochlorothiazde, and lasix at home -currently holding all agents given hypotension, CARL, and low Na. -Monitor BP -SBP 90s. Giving bolus and has maintenance fluids running (7) UTI (urinary tract infection): Code(s): N39.0 - Urinary tract infection, site not specified Status: Acute Assessment and Plan: U/A +3 leukocytes, > 100 WBC in clumps -already cefazolin on IV abx to cover cellulitis -urine culture pending -CT abdomen ordered. Patient with pyuria but no bacteria seen on U/A with unexplained N/V causing severe electrolyte derangement. Subjective Date/time seen: 06/28/23 08:51 Interval history: This is a 67-year-old female with hypertension, asthma, left AKA, anxiety who presented to the emergency department via EMS from home for evaluation of weakness, nausea, and vomiting. The patient provides the following history. She is known to the hospitalist service from a recent admission last month after presenting with similar complaints. She had a laparoscopic cholecystectomy on 06/07/[address] Bates for acute on chronic cholecystitis with cholelithiasis and was discharged on the . She was readmitted the following day with volume overload, felt to be related to fluid received in the perioperative period, and she was diuresed with improvement in her swelling. She has been back at home since the and she has not been doing well. She has daily nausea and vomiting and has not been able to hold much down the way of food. She has become increasingly weak and came back in today for evaluation. She denies fever, headache, dysphagia, epigastric pain, abdomin
[2023-06-28] MEDS: ENOXAPARIN 40 MG/0.4 ML SYRINGE SUB-Q (08:56)
[2023-06-28] MEDS: PANTOPRAZOLE 40 MG TABLET PO (08:57)
[2023-06-28] MEDS: polyethylene glycoL 3350 17 GM POWD.PACK PO ×2 (08:57→17:14)
[2023-06-28 09:35] LABS: Anion Gap 10 mmol/L (8-16); Blood Urea Nitrogen 10 mg/dL (7-17); Calcium 7.1 mg/dL (8.4-10.2); Carbon Dioxide 17 mmol/L (22-30); Chloride 102 mmol/L (98-107); Estimated CRCL calculation 38 ml/min; Estimated Glomerular Filt Rate 55; Glucose 95 mg/dL (65-110); Sodium 129 mmol/L (137-145)
[2023-06-28] MEDS: ceFAZolin 1 GM in SODIUM CHLORIDE 0.9% IV 50 ML IVPB ×2 (10:01→21:01)
[2023-06-28] MEDS: ALBUMIN HUMAN 5% 25 GM/500 ML BTL IV CONT (11:16)
[2023-06-28 11:51] LABS: Glucose Point of Care 93 mg/dl (65-105)
[2023-06-28] MEDS: SODIUM CHLORIDE 0.9% IV 1,000 ML 75 ML IV CONT (15:35)
[2023-06-28 15:42] LABS: Sodium 128 mmol/L (137-145)
[2023-06-28 16:44] LABS: Glucose Point of Care 78 mg/dl (65-105)
[2023-06-28 21:19] LABS: Sodium 129 mmol/L (137-145)
[2023-06-28 22:10] LABS: Glucose Point of Care 103 mg/dl (65-105)
[2023-06-29] VITALS (13 sets, daily range): BP systolic 92–107; BP diastolic 46–55; PULSE 71–87; RESP 16–18; TEMP 36.6–37.8; O2SAT 97–100
[2023-06-29 00:08] LABS: Glucose Point of Care 78 mg/dl (65-105)
[2023-06-29] MEDS: SODIUM CHLORIDE 0.9% IV 1,000 ML 75 ML IV CONT (04:30)
[2023-06-29 04:52] LABS: Glucose Point of Care 85 mg/dl (65-105)
[2023-06-29 06:19] LABS: Basophils Percent Auto 0.3 % (0.2-1.2); Eosinophils Absolute Auto 0.2 K/mm3 (0-0.3); Eosinophils Percent Auto 2.4 % (0-4.4); Hematocrit 21.8 % (37.0-47.0); Hemoglobin 7.2 g/dL (12.0-15.0); Immature Granulocyte Absolute 0.04 K/mm3 (0.00-0.031); Immature Granulocyte Percent A 0.6 % (0-0.5); Lymphocytes Absolute Auto 1.43 K/mm3 (0.9-3.2); Lymphocytes Percent Auto 23.2 % (18.3-44.2); Mean Corpuscular Hemoglobin 26.7 pg (26-34); Mean Corpuscular Volume 80.7 fl (80-100); Mean Platelet Volume 9.5 fl (7.4-10.4); Monocytes Absolute Auto 0.4 K/mm3 (0.1-0.6); Monocytes Percent Auto 6.6 % (2.6-8.5); Neutrophils Absolute Auto 4.1 K/mm3 (1.3-6.7); Neutrophils Percent Auto 66.9 % (45.5-73.1); Platelet Count Result 172 k/mm3 (150-375); Red Cell Distribution Width 22.8 % (11.5-14.5); White Blood Count 6.2 K/mm3 (4.5-10.0)
[2023-06-29 06:37] LABS: Anion Gap 3 mmol/L (8-16); Blood Urea Nitrogen 10 mg/dL (7-17); Carbon Dioxide 20 mmol/L (22-30); Chloride 104 mmol/L (98-107); Estimated CRCL calculation 52 ml/min; Estimated Glomerular Filt Rate > 60; Glucose 70 mg/dL (65-110); Magnesium 2.4 mg/dL (1.6-2.3); Potassium 3.4 mmol/L (3.4-5.0); Sodium 127 mmol/L (137-145)
[2023-06-29 06:44] LABS: Anisocytosis 2+ (NORMAL); Burr Cells 1+ (NORMAL); Platelet Estimate Adequate (Adequate)
[2023-06-29 06:45] LABS: Ovalocytes 1+ (NORMAL); Schistocytes Rare (NORMAL)
--- NOTE | 2023-06-29 07:38 | PM.IMPN ---
Progress Note: A&P Assessment and Plan (1) Acute kidney injury: Code(s): N17.9 - Acute kidney failure, unspecified Status: Acute Assessment and Plan: Cr on admission was 1.30 expected to be pre-renal; resolved now 0.70. -Fluid resuscitated in the ED with maintenance fluids ordered -continue daily labs (2) Electrolyte abnormality: Code(s): E87.8 - Other disorders of electrolyte and fluid balance, not elsewhere classified Status: Acute Assessment and Plan: Hypokalemia, hypomagnesemia, hyponatremia, hypoglycemia. Related to Nausea and vomiting as well as setting of infection. -Mg 1.4, corrected now elevated at 2.9 -K+ 2.4, correcting now 3.4 -Na 128, still low 127 -IV fluids with D5NS at 100 ml per hour -Tele -IVP D5 as needed. -Dietary concerns, poor appetite, low albumin. Consult to dietitian and recommendations are appreciated. -continues have hypoglycemia after stopping IV fluids and tolerating clear liquid diet. Will order cortisol and ACTH testing for the morning to assess for adrenal insufficiency. (3) Intractable nausea and vomiting: Code(s): R11.2 - Nausea with vomiting, unspecified Status: Acute Assessment and Plan: KUB without concerns for obstruction. -PRN zofran for nausea -diet as tolerated -CT abdomen wo contrast negative for process to explain symptoms (4) Dehydration: Code(s): E86.0 - Dehydration Status: Acute Assessment and Plan: Related to vomiting -Fluid resuscitated in the ED, now on maintenance fluids NS @ 75 ml per hour -Blood pressures are soft. SBPs in the 90's. -Vitals Q 4 hours -holding antihypertensives (5) Cellulitis of leg: Code(s): L03.119 - Cellulitis of unspecified part of limb Status: Acute Assessment and Plan: Redness, swelling to RLE -Recent abdominal surgery in May and not on anticoagulation -Order venous doppler to rule out DVT-was negative -Started on Cefazolin -Wound care was consulted in May for right lower extremity with similar presentation. Yeast and fluid filled blisters noted at that time. Will re-consult wound care and their recommendations are appreciated. (6) Hypertension: Code(s): I10 - Essential (primary) hypertension Status: Acute Assessment and Plan: On atenolol, lisinopril-hydrochlorothiazde, and lasix at home -currently holding all agents given hypotension, CARL, and low Na. -Monitor BP -SBP 90s. Giving bolus and has maintenance fluids running (7) UTI (urinary tract infection): Code(s): N39.0 - Urinary tract infection, site not specified Status: Acute Assessment and Plan: U/A +3 leukocytes, > 100 WBC in clumps -already cefazolin on IV abx to cover cellulitis -urine culture pending -CT abdomen ordered. Patient with pyuria but no bacteria seen on U/A with unexplained N/V causing severe electrolyte derangement. Subjective Date/time seen: 06/29/23 07:38 Interval history: This is a 67-year-old female with hypertension, asthma, left AKA, anxiety who presented to the emergency department via EMS from home for evaluation of weakness, nausea, and vomiting. The patient provides the following history. She is known to the hospitalist service from a recent admission last month after presenting with similar complaints. She had a laparoscopic cholecystectomy on 06/07/[address] Bates for acute on chronic cholecystitis with cholelithiasis and was discharged on the . She was readmitted the following day with volume overload, felt to be related to fluid received in the perioperative period, and she was diuresed with improvement in her swelling. She has been back at home since the and she has not been doing well. She has daily nausea and vomiting and has not been able to hold much down the way of food. She has become increasingly weak and came back in today for evaluation. She denies fever, headache, dysphagia, epigastric pain, ab
[2023-06-29 07:53] LABS: Glucose Point of Care 57 mg/dl (65-105)
[2023-06-29] MEDS: ENOXAPARIN 40 MG/0.4 ML SYRINGE SUB-Q (08:44)
[2023-06-29] MEDS: SODIUM CHLORIDE 1 GM TABLET PO ×2 (08:44→17:12)
[2023-06-29] MEDS: ceFAZolin 1 GM in SODIUM CHLORIDE 0.9% IV 50 ML IVPB ×2 (08:44→20:03)
[2023-06-29] MEDS: PANTOPRAZOLE 40 MG TABLET PO (08:44)
[2023-06-29] MEDS: polyethylene glycoL 3350 17 GM POWD.PACK PO ×2 (08:44→17:12)
[2023-06-29 08:50] LABS: Glucose Point of Care 88 mg/dl (65-105)
[2023-06-29] MEDS: DEXTROSE 5%/0.9% SOD CHL 1,000 ML 100 ML IV CONT ×2 (09:16→20:03)
[2023-06-29] MEDS: SILVERGEL (ELTA) 45 ML 1 APPLIC TOPICAL (10:55)
[2023-06-29 11:33] LABS: Glucose Point of Care 110 mg/dl (65-105)
[2023-06-29 12:43] LABS: Prealbumin < 3.0 mg/dL (17.6-36.0)
--- NOTE | 2023-06-29 13:02 | P.CDI_ITS ---
CDI Query Clarification Request BMI 21.2 Nutritional Diagnostic Statement Moderate protein calorie malnutrition related to inadequate energy intake as evidenced by pt report , poor intake for greater than 1 month, noted significant weight loss x 1 month, and NFPE findings. Please refer to the comprehensive nutrition assessment for further information. Please clarify severity of protein calorie malnutrition if known: * Mild * Moderate * Severe * Other/Unspecified <Nerissa Dumont RN - Last Filed: 06/29/23 13:07> Clarified Diagnosis Clarified Diagnosis: Severe <Antonia Soto APRN - Last Filed: 06/29/23 13:48>
[2023-06-29 16:54] LABS: Glucose Point of Care 122 mg/dl (65-105)
[2023-06-29 20:54] LABS: Glucose Point of Care 112 mg/dl (65-105)
[2023-06-29] MEDS: ACETAMINOPHEN 325 MG TABLET 650 MG PO (21:23)
[2023-06-30] VITALS (11 sets, daily range): BP systolic 116–121; BP diastolic 67–72; PULSE 69–86; RESP 16–20; TEMP 36.6–37.2; O2SAT 94–100
[2023-06-30] MEDS: DEXTROSE 5%/0.9% SOD CHL 1,000 ML 100 ML IV CONT (05:41)
[2023-06-30] MEDS: COSYNTROPIN 0.25 MG/ML VIAL IV PUSH (05:41)
[2023-06-30 06:30] LABS: Basophils Percent Auto 0.7 % (0.2-1.2); Eosinophils Absolute Auto 0.2 K/mm3 (0-0.3); Eosinophils Percent Auto 4.2 % (0-4.4); Hematocrit 24.2 % (37.0-47.0); Hemoglobin 7.9 g/dL (12.0-15.0); Immature Granulocyte Absolute 0.05 K/mm3 (0.00-0.031); Immature Granulocyte Percent A 1.1 % (0-0.5); Lymphocytes Absolute Auto 1.32 K/mm3 (0.9-3.2); Lymphocytes Percent Auto 29.3 % (18.3-44.2); Mean Corpuscular HGB Conc 32.6 g/dl (32-36); Mean Corpuscular Hemoglobin 26.9 pg (26-34); Mean Corpuscular Volume 82.3 fl (80-100); Mean Platelet Volume 9.5 fl (7.4-10.4); Monocytes Absolute Auto 0.3 K/mm3 (0.1-0.6); Monocytes Percent Auto 6.4 % (2.6-8.5); Neutrophils Absolute Auto 2.6 K/mm3 (1.3-6.7); Neutrophils Percent Auto 58.3 % (45.5-73.1); Platelet Count Result 179 k/mm3 (150-375); Red Blood Count 2.94 M/mm3 (4.2-5.4); Red Cell Distribution Width 22.9 % (11.5-14.5); White Blood Count 4.5 K/mm3 (4.5-10.0)
[2023-06-30 06:50] LABS: Alanine Aminotransferase 17 U/L (6-35); Albumin Level 1.9 g/dL (3.5-5.1); Alkaline Phosphatase 294 U/L (38-126); Anion Gap 4 mmol/L (8-16); Aspartate Amino Transferase 82 U/L (14-36); Bilirubin,Total 0.9 mg/dL (0.2-1.3); Blood Urea Nitrogen 6 mg/dL (7-17); Carbon Dioxide 22 mmol/L (22-30); Chloride 104 mmol/L (98-107); Estimated CRCL calculation 60 ml/min; Estimated Glomerular Filt Rate > 60; Glucose 109 mg/dL (65-110); Sodium 130 mmol/L (137-145)
[2023-06-30 06:58] LABS: Anisocytosis 1+ (NORMAL); Ovalocytes 1+ (NORMAL); Platelet Estimate Adequate (Adequate)
[2023-06-30 06:59] LABS: Schistocytes Rare (NORMAL)
[2023-06-30 07:06] LABS: Potassium 2.8 mmol/L (3.4-5.0)
[2023-06-30 07:52] LABS: Glucose Point of Care 118 mg/dl (65-105)
[2023-06-30] MEDS: ceFAZolin 1 GM in SODIUM CHLORIDE 0.9% IV 50 ML IVPB (08:11)
[2023-06-30] MEDS: ENOXAPARIN 40 MG/0.4 ML SYRINGE SUB-Q (08:13)
[2023-06-30] MEDS: PANTOPRAZOLE 40 MG TABLET PO (08:13)
[2023-06-30] MEDS: SODIUM CHLORIDE 1 GM TABLET PO (08:13)
[2023-06-30] MEDS: polyethylene glycoL 3350 17 GM POWD.PACK PO ×2 (08:13→17:06)
[2023-06-30] MEDS: SILVERGEL (ELTA) 45 ML 1 APPLIC TOPICAL (08:15)
[2023-06-30] MEDS: POTASSIUM CHLORIDE INJ 40 MEQ in SODIUM CHLORIDE 0.9% IV 500 ML 130 MEQ IVPB (09:17)
--- NOTE | 2023-06-30 11:22 | PM.IMPN ---
Progress Note: A&P Assessment and Plan (1) Electrolyte abnormality: Code(s): E87.8 - Other disorders of electrolyte and fluid balance, not elsewhere classified Status: Acute Assessment and Plan: Hypokalemia, hypomagnesemia, hyponatremia, hypoglycemia. Related to Nausea and vomiting as well as setting of infection. -Mg 1.4, corrected now elevated at 2.9 -K+ 2.4, correcting now 3.4 -Na 128, still low 127 -IV fluids with D5NS at 100 ml per hour -Tele -IVP D50 as needed. -Dietary concerns, poor appetite, low albumin. Consult to dietitian and recommendations are appreciated. -continues have hypoglycemia after stopping IV fluids and tolerating clear liquid diet. Will order cortisol and ACTH testing for the morning to assess for adrenal insufficiency. 06/30: Significant hypokalemia and continued hyponatremia on morning labs. Ordered IV potassium replacement and nephrology consult. Cosyntropin cortisol levels are markers pending but not yet reported (2) Intractable nausea and vomiting: Code(s): R11.2 - Nausea with vomiting, unspecified Status: Acute Assessment and Plan: KUB without concerns for obstruction. -PRN zofran for nausea -diet as tolerated -CT abdomen wo contrast negative for process to explain symptoms 06/30: The patient reports continued nausea but no vomiting. (3) Dehydration: Code(s): E86.0 - Dehydration Status: Acute Assessment and Plan: Related to vomiting -Fluid resuscitated in the ED, now on maintenance fluids NS @ 75 ml per hour -Blood pressures are soft. SBPs in the 90's. -Vitals Q 4 hours -holding antihypertensives 06/30: Blood pressures have stabilized after being low for a while. (4) Cellulitis of leg: Code(s): L03.119 - Cellulitis of unspecified part of limb Status: Acute Assessment and Plan: Redness, swelling to RLE -Recent abdominal surgery in May and not on anticoagulation -Order venous doppler to rule out DVT-was negative -Started on Cefazolin -Wound care was consulted in May for right lower extremity with similar presentation. Yeast and fluid filled blisters noted at that time. Will re-consult wound care and their recommendations are appreciated. 06/30: Dressing intact. Patient continuing antibiotics. (5) Hypertension: Code(s): I10 - Essential (primary) hypertension Status: Acute Assessment and Plan: On atenolol, lisinopril-hydrochlorothiazde, and lasix at home -currently holding all agents given hypotension, CARL, and low Na. -Monitor BP -SBP 90s. Giving bolus and has maintenance fluids running 06/30: Blood pressures have been borderline low 90s over 40s to 60s but as of today have stabilized. (6) UTI (urinary tract infection): Code(s): N39.0 - Urinary tract infection, site not specified Status: Acute Assessment and Plan: U/A +3 leukocytes, > 100 WBC in clumps -already cefazolin on IV abx to cover cellulitis -urine culture pending -CT abdomen ordered. Patient with pyuria but no bacteria seen on U/A with unexplained N/V causing severe electrolyte derangement. 06/30: Antibiotics continue. No dysuria, CVA tenderness or fever/chills (7) Acute kidney injury: Code(s): N17.9 - Acute kidney failure, unspecified Status: Acute Assessment and Plan: Cr on admission was 1.30 expected to be pre-renal; resolved now 0.70. -Fluid resuscitated in the ED with maintenance fluids ordered -continue daily labs 06/30: Cr 0.6, Cr Clear 60, GFR> 60 Plan Replace potassium. Nausea medication as needed. Change antibiotics to oral coverage Keflex 500 mg Q6h Nephrology consult for significant electrolyte abnormalities Time Spent With Patient Time with patient: Greater than 35 minutes Subjective Date/time seen: 06/30/23 11:22 Interval history: This is a 67-year-old female with hypertension, asthma, left AKA, anxiety who presented to the emergency department vi
[2023-06-30 11:49] LABS: Glucose Point of Care 111 mg/dl (65-105)
[2023-06-30 12:18] LABS: Cortisol Baseline 4.73 ug/dL
[2023-06-30] MEDS: CEPHALEXIN 500 MG CAPSULE PO ×3 (12:48→23:53)
[2023-06-30 13:23] LABS: Anion Gap 7 mmol/L (8-16); Blood Urea Nitrogen 6 mg/dL (7-17); Calcium 6.9 mg/dL (8.4-10.2); Carbon Dioxide 18 mmol/L (22-30); Chloride 109 mmol/L (98-107); Estimated CRCL calculation 86 ml/min; Estimated Glomerular Filt Rate > 60; Glucose 121 mg/dL (65-110); Potassium 3.6 mmol/L (3.4-5.0); Sodium 134 mmol/L (137-145)
--- NOTE | 2023-06-30 14:36 | P.CONNP_ITS ---
Assessment and Plan Assessment and plan (1) Hyponatremia: Code(s): E87.1 - Hypo-osmolality and hyponatremia Status: Acute Assessment and Plan: * acute on chronic * issues with low sodium date back as far as 2019 * however, sodium doing a bit better at this time * risk factors for low sodium: * HCTZ use * PPI use * diuretic use (lasix) * pain issues (PRN tramadol) * lung disease (asthma) * prerenal factors (nausea and vomiting) * evaluation to date: * TSH okay * cortisol low but stim test okay * urine electrolytes non-prerenal * CT of head noted * CXR results reviewed * was on salt tabs but will hold for now * will consider resuming if sodium drops again * for completeness, check SPEP, UPEP, and serum/urine osmo * follow trend of repeat sodium levels (2) Hypokalemia: Code(s): E87.6 - Hypokalemia Status: Acute Assessment and Plan: * due to GI loss, low magnesium, and possible total body store depletion * doing better s/p supplementation * follow trend (3) Hypomagnesemia: Code(s): E83.42 - Hypomagnesemia Status: Acute Assessment and Plan: * acute on chronic issue (on magneisum supplementation chronically) * suspect worsenened by GI loss/nausea/vomiting * replaced and better * follow trend (4) Cellulitis of right leg: Code(s): L03.115 - Cellulitis of right lower limb Status: Acute Assessment and Plan: * as suspected by RLE appearance * wound care following * on antibiotics (5) Intractable nausea and vomiting: Code(s): R11.2 - Nausea with vomiting, unspecified Status: Acute Assessment and Plan: * etiology not clear * however, still with on/off nausea but vomiting resolved * continue IV antiementics PRN * follow oral intake (6) Hypertension: Code(s): I10 - Essential (primary) hypertension Status: Chronic Assessment and Plan: * BP soft admission * BP mediations on hold * follow trend of parameters I will continue to follow patient with you while she remains hospitalized and make further recommendations as needed. Thank you for allowing me to participate in the care of this patient. History of Present Illness Reason for Consult Consult date: 06/30/23 Reason for consult: hyponatremia and hypokalemia Chief Complaint Chief complaint: CARL/Cellulitis History of Present Illness Narrative: The patient is a 67-year-old female with a past medical history as outlined below who presented to [facility] Emergency room from for fu rther evaluation generalized weakness, nausea, and vomiting. The patient was recently hospitalized here [facility]. She underwent a laparoscopic cholecystectomy on 06/07/2023 for acute on chronic cholecystitis and was subsequent discharged a few days later. She returned back readmitted for overload was thought to be secondary to aggressive IV fluid resuscitation during perioperative period and she spotted to diuretic therapy she was subsequently discharged once again as in back home since June 13, 2023. unfortunately, since being home, she has not been doing well. She reports daily nausea and vomiting since discharge and has not been able to hold anything down in terms of fluids or solid food. Given these symptoms, she reports increasing weakness and fatigue that has progressively worsened as well. This subsequently led to a call to EMS and subsequent transferred to [facility] ER for further assessment. Workup an ev
--- NOTE | 2023-06-30 14:36 | PM.CNNEP ---
Assessment and Plan Assessment and plan (1) Hyponatremia: Code(s): E87.1 - Hypo-osmolality and hyponatremia Status: Acute Assessment and Plan: acute on chronic issues with low sodium date back as far as 2019 however, sodium doing a bit better at this time risk factors for low sodium: HCTZ use PPI use diuretic use (lasix) pain issues (PRN tramadol) lung disease (asthma) prerenal factors (nausea and vomiting) evaluation to date: TSH okay cortisol low but stim test okay urine electrolytes non-prerenal CT of head noted CXR results reviewed was on salt tabs but will hold for now will consider resuming if sodium drops again for completeness, check SPEP, UPEP, and serum/urine osmo follow trend of repeat sodium levels (2) Hypokalemia: Code(s): E87.6 - Hypokalemia Status: Acute Assessment and Plan: due to GI loss, low magnesium, and possible total body store depletion doing better s/p supplementation follow trend (3) Hypomagnesemia: Code(s): E83.42 - Hypomagnesemia Status: Acute Assessment and Plan: acute on chronic issue (on magneisum supplementation chronically) suspect worsenened by GI loss/nausea/vomiting replaced and better follow trend (4) Cellulitis of right leg: Code(s): L03.115 - Cellulitis of right lower limb Status: Acute Assessment and Plan: as suspected by RLE appearance wound care following on antibiotics (5) Intractable nausea and vomiting: Code(s): R11.2 - Nausea with vomiting, unspecified Status: Acute Assessment and Plan: etiology not clear however, still with on/off nausea but vomiting resolved continue IV antiementics PRN follow oral intake (6) Hypertension: Code(s): I10 - Essential (primary) hypertension Status: Chronic Assessment and Plan: BP soft admission BP mediations on hold follow trend of parameters I will continue to follow patient with you while she remains hospitalized and make further recommendations as needed. Thank you for allowing me to participate in the care of this patient. History of Present Illness Reason for Consult Consult date: 06/30/23 Reason for consult: hyponatremia and hypokalemia Chief Complaint Chief complaint: CARL/Cellulitis History of Present Illness Narrative: The patient is a 67-year-old female with a past medical history as outlined below who presented to [facility] Emergency room from for further evaluation generalized weakness, nausea, and vomiting. The patient was recently hospitalized here [facility]. She underwent a laparoscopic cholecystectomy on 06/07/2023 for acute on chronic cholecystitis and was subsequent discharged a few days later. She returned back readmitted for overload was thought to be secondary to aggressive IV fluid resuscitation during perioperative period and she spotted to diuretic therapy she was subsequently discharged once again as in back home since June 13, 2023. unfortunately, since being home, she has not been doing well. She reports daily nausea and vomiting since discharge and has not been able to hold anything down in terms of fluids or solid food. Given these symptoms, she reports increasing weakness and fatigue that has progressively worsened as well. This subsequently led to a call to EMS and subsequent transferred to [facility] ER for further assessment. Workup an evaluation in the emergency room demonstrated the patient to be hemodynamically stable although her blood pressures were a little bit on the softer side in comparison to baseline. Routine blood tests were significant for a mildly elevated white blood cell count, anemia, and acute kidney injury/acute renal failure in association with mild hyponatremia, hypokalemia, and hypomagnesemia. Her urinalysis was somewhat suggestive of urinary tract infection as well but her chest
[2023-06-30 16:37] LABS: Glucose Point of Care 113 mg/dl (65-105)
[2023-06-30 22:40] LABS: Glucose Point of Care 108 mg/dl (65-105)
[2023-07-01] VITALS (10 sets, daily range): BP systolic 112–116; BP diastolic 66–70; PULSE 75–93; RESP 20; TEMP 36.6–37.1; O2SAT 97–100
[2023-07-01 04:29] LABS: Creatinine Urine 34.2 mg/dL; Total Protein Urine Random 16 mg/dL; Ur Ttl Prot Creatinine Ratio 0.47 mg/mg (0-0.20); Urea Random Urine 233 MG/DL
[2023-07-01 04:30] LABS: Eosinophil Urine None Seen % (None Seen); Sodium Urine Random 48 meq/L; Urine Eos QC 2nd Tech Confirmed
[2023-07-01] MEDS: CEPHALEXIN 500 MG CAPSULE PO ×4 (05:37→23:22)
[2023-07-01 06:41] LABS: Hematocrit 23.2 % (37.0-47.0); Hemoglobin 7.6 g/dL (12.0-15.0); Mean Corpuscular HGB Conc 32.8 g/dl (32-36); Mean Corpuscular Hemoglobin 26.9 pg (26-34); Mean Platelet Volume 9.7 fl (7.4-10.4); Platelet Count Result 163 k/mm3 (150-375); Red Blood Count 2.83 M/mm3 (4.2-5.4); Red Cell Distribution Width 22.9 % (11.5-14.5); White Blood Count 4.4 K/mm3 (4.5-10.0)
[2023-07-01 06:48] LABS: Alanine Aminotransferase 16 U/L (6-35); Albumin Level 1.9 g/dL (3.5-5.1); Alkaline Phosphatase 304 U/L (38-126); Anion Gap 3 mmol/L (8-16); Aspartate Amino Transferase 85 U/L (14-36); Bilirubin,Total 1.2 mg/dL (0.2-1.3); Blood Urea Nitrogen 4 mg/dL (7-17); Calcium 7.1 mg/dL (8.4-10.2); Carbon Dioxide 23 mmol/L (22-30); Chloride 107 mmol/L (98-107); Estimated CRCL calculation 86 ml/min; Estimated Glomerular Filt Rate > 60; Glucose 93 mg/dL (65-110); Potassium 3.5 mmol/L (3.4-5.0); Sodium 133 mmol/L (137-145)
[2023-07-01 06:51] LABS: Magnesium 1.6 mg/dL (1.6-2.3)
[2023-07-01 08:10] LABS: Glucose Point of Care 102 mg/dl (65-105)
[2023-07-01] MEDS: polyethylene glycoL 3350 17 GM POWD.PACK PO ×2 (08:56→17:36)
[2023-07-01] MEDS: ENOXAPARIN 40 MG/0.4 ML SYRINGE SUB-Q (08:56)
[2023-07-01] MEDS: SILVERGEL (ELTA) 45 ML 1 APPLIC TOPICAL (08:57)
--- NOTE | 2023-07-01 09:56 | PM.IMPN ---
Progress Note: A&P Assessment and Plan (1) Electrolyte abnormality: Code(s): E87.8 - Other disorders of electrolyte and fluid balance, not elsewhere classified Status: Acute Assessment and Plan: Hypokalemia, hypomagnesemia, hyponatremia, hypoglycemia. Related to Nausea and vomiting as well as setting of infection. -Mg 1.4, corrected now elevated at 2.9 -K+ 2.4, correcting now 3.4 -Na 128, still low 127 -IV fluids with D5NS at 100 ml per hour -Tele -IVP D50 as needed. -Dietary concerns, poor appetite, low albumin. Consult to dietitian and recommendations are appreciated. -continues have hypoglycemia after stopping IV fluids and tolerating clear liquid diet. Will order cortisol and ACTH testing for the morning to assess for adrenal insufficiency. 06/30: Significant hypokalemia and continued hyponatremia on morning labs. Ordered IV potassium replacement and nephrology consult. Cosyntropin cortisol levels are markers pending but not yet reported 07/01: Sodium is 133 and potassium 3.5. Patient is tolerating full meal. We will stop IV glucose. Nephrology is on board really appreciate their recommendations. (2) Intractable nausea and vomiting: Code(s): R11.2 - Nausea with vomiting, unspecified Status: Acute Assessment and Plan: KUB without concerns for obstruction. -PRN zofran for nausea -diet as tolerated -CT abdomen wo contrast negative for process to explain symptoms 06/30: The patient reports continued nausea but no vomiting. 07/01: Improved, nearly completely resolved (3) Dehydration: Code(s): E86.0 - Dehydration Status: Acute Assessment and Plan: Related to vomiting -Fluid resuscitated in the ED, now on maintenance fluids NS @ 75 ml per hour -Blood pressures are soft. SBPs in the 90's. -Vitals Q 4 hours -holding antihypertensives 06/30: Blood pressures have stabilized after being low for a while. 07/01: Tolerating full diet and drink, blood pressure stable. (4) Cellulitis of leg: Code(s): L03.119 - Cellulitis of unspecified part of limb Status: Acute Assessment and Plan: Redness, swelling to RLE -Recent abdominal surgery in May and not on anticoagulation -Order venous doppler to rule out DVT-was negative -Started on Cefazolin -Wound care was consulted in May for right lower extremity with similar presentation. Yeast and fluid filled blisters noted at that time. Will re-consult wound care and their recommendations are appreciated. 06/30: Dressing intact. Patient continuing antibiotics. 07/01: Unchanged (5) Hypertension: Code(s): I10 - Essential (primary) hypertension Status: Acute Assessment and Plan: On atenolol, lisinopril-hydrochlorothiazde, and lasix at home -currently holding all agents given hypotension, CARL, and low Na. -Monitor BP -SBP 90s. Giving bolus and has maintenance fluids running 06/30: Blood pressures have been borderline low 90s over 40s to 60s but as of today have stabilized. 07/01: Blood pressures stable. 116/70 (6) UTI (urinary tract infection): Code(s): N39.0 - Urinary tract infection, site not specified Status: Acute Assessment and Plan: U/A +3 leukocytes, > 100 WBC in clumps -already cefazolin on IV abx to cover cellulitis -urine culture pending -CT abdomen ordered. Patient with pyuria but no bacteria seen on U/A with unexplained N/V causing severe electrolyte derangement. 06/30: Antibiotics continue. No dysuria, CVA tenderness or fever/chills 07/01: Oral antibiotics Keflex for cellulitis. Urine culture was mixed genital swathi. (7) Acute kidney injury: Code(s): N17.9 - Acute kidney failure, unspecified Status: Acute Assessment and Plan: Cr on admission was 1.30 expected to be pre-renal; resolved now 0.70. -Fluid resuscitated in the ED with maintenance fluids ordered -continue daily labs 06/30: Cr 0.6, Cr Clear 60, GFR> 60 07/01: Resolved P
--- NOTE | 2023-07-01 11:10 | PCOTNOTE ---
Patient refused to participate at this time. Patient stating, I'm tired and need rest, I haven't slept . Will attempt again at a later time.
[2023-07-01 11:33] LABS: Glucose Point of Care 80 mg/dl (65-105)
--- NOTE | 2023-07-01 12:45 | P.PNNP_ITS ---
Progress Note: A&P Assessment and Plan (1) Hyponatremia: Code(s): E87.1 - Hypo-osmolality and hyponatremia Status: Acute Assessment and Plan: * stabilizing/improving * acute on chronic * baseline sodium runs ~ 133 -136 * issues with low sodium date back as far as 2019 * risk factors for low sodium: * HCTZ use * PPI use * diuretic use (lasix) * pain issues (PRN tramadol) * lung disease (asthma) * prerenal factors (nausea and vomiting) * evaluation to date: * TSH okay * cortisol low but stim test okay * urine electrolytes non-prerenal * CT of head noted * CXR results reviewed * SPEP/UPEP and serum/urine osmolality pending * was on salt tabs but on hold * will consider resuming if sodium drops again * follow trend of repeat sodium levels (2) Hypokalemia: Code(s): E87.6 - Hypokalemia Status: Acute Assessment and Plan: * due to GI loss, low magnesium, and possible total body store depletion * doing better s/p supplementation * follow trend (3) Hypomagnesemia: Code(s): E83.42 - Hypomagnesemia Status: Acute Assessment and Plan: * acute on chronic issue (on magneisum supplementation chronically) * suspect worsenened by GI loss/nausea/vomiting * replaced and better * follow trend (4) Cellulitis of right leg: Code(s): L03.115 - Cellulitis of right lower limb Status: Acute Assessment and Plan: * as suspected by RLE appearance * wound care following * on antibiotics (5) Intractable nausea and vomiting: Code(s): R11.2 - Nausea with vomiting, unspecified Status: Acute Assessment and Plan: * etiology not clear - related to recent surgery? * however, still with on/off nausea but vomiting resolved * continue IV antiementics PRN * follow oral intake (6) Hypertension: Code(s): I10 - Essential (primary) hypertension Status: Chronic Assessment and Plan: * BP soft admission * BP mediations on hold * follow trend of parameters Will continue to follow. Subjective Date/time seen: 07/01/23 12:45 Interval history: Follow-up for hyponatremia and hypokalemia. Sodium and potassium levels improving with current interventions/therapy; salt tablets on hold at this time; still with on/off nausea which is better and no further vomiting at this itme; no apparent distress voiced at the time of my visit. Exam Narrative: General: elderly female in NAD Heart: normal S1 and S2; no rub Lungs: clear to auscultation Abdomen: soft, nontender, nondistended, positive bowel sounds Extremities: no cyanosis or clubbing; no edema; s/p left AKA Skin: scattered abrasions/blisters on RLE Objective Data Vital Signs Vital Signs: Vital Signs Temp Pulse Resp BP Pulse Ox O2 Del Method O2 Flow Rate 07/01/23 08:32 97 Room Air 07/01/23 06:00 98.7 F 81 20 116/70 99 07/01/23 04:02 75 07/01/23 00:00 81 06/30/23 22:00 97.9 F 81 20 116/72 100 06/30/23 20:02 77 06/30/23 20:30 96 Nasal Cannula 1 06/30/23 16:01 82 06/30/23 14:00 98.4 F 86 16 120/70 95 06/30/23 14:30 Nasal Cannula 2 Intake/Output Intake/Output:
--- NOTE | 2023-07-01 12:45 | PM.PNNEP ---
Progress Note: A&P Assessment and Plan (1) Hyponatremia: Code(s): E87.1 - Hypo-osmolality and hyponatremia Status: Acute Assessment and Plan: stabilizing/improving acute on chronic baseline sodium runs ~ 133 -136 issues with low sodium date back as far as 2019 risk factors for low sodium: HCTZ use PPI use diuretic use (lasix) pain issues (PRN tramadol) lung disease (asthma) prerenal factors (nausea and vomiting) evaluation to date: TSH okay cortisol low but stim test okay urine electrolytes non-prerenal CT of head noted CXR results reviewed SPEP/UPEP and serum/urine osmolality pending was on salt tabs but on hold will consider resuming if sodium drops again follow trend of repeat sodium levels (2) Hypokalemia: Code(s): E87.6 - Hypokalemia Status: Acute Assessment and Plan: due to GI loss, low magnesium, and possible total body store depletion doing better s/p supplementation follow trend (3) Hypomagnesemia: Code(s): E83.42 - Hypomagnesemia Status: Acute Assessment and Plan: acute on chronic issue (on magneisum supplementation chronically) suspect worsenened by GI loss/nausea/vomiting replaced and better follow trend (4) Cellulitis of right leg: Code(s): L03.115 - Cellulitis of right lower limb Status: Acute Assessment and Plan: as suspected by RLE appearance wound care following on antibiotics (5) Intractable nausea and vomiting: Code(s): R11.2 - Nausea with vomiting, unspecified Status: Acute Assessment and Plan: etiology not clear - related to recent surgery? however, still with on/off nausea but vomiting resolved continue IV antiementics PRN follow oral intake (6) Hypertension: Code(s): I10 - Essential (primary) hypertension Status: Chronic Assessment and Plan: BP soft admission BP mediations on hold follow trend of parameters Will continue to follow. Subjective Date/time seen: 07/01/23 12:45 Interval history: Follow-up for hyponatremia and hypokalemia. Sodium and potassium levels improving with current interventions/therapy; salt tablets on hold at this time; still with on/off nausea which is better and no further vomiting at this itme; no apparent distress voiced at the time of my visit. Exam Narrative: General: elderly female in NAD Heart: normal S1 and S2; no rub Lungs: clear to auscultation Abdomen: soft, nontender, nondistended, positive bowel sounds Extremities: no cyanosis or clubbing; no edema; s/p left AKA Skin: scattered abrasions/blisters on RLE Objective Data Vital Signs Vital Signs: Vital Signs Temp Pulse Resp BP Pulse Ox O2 Del Method O2 Flow Rate 07/01/23 08:32 97 Room Air 07/01/23 06:00 98.7 F 81 20 116/70 99 07/01/23 04:02 75 07/01/23 00:00 81 06/30/23 22:00 97.9 F 81 20 116/72 100 06/30/23 20:02 77 06/30/23 20:30 96 Nasal Cannula 1 06/30/23 16:01 82 06/30/23 14:00 98.4 F 86 16 120/70 95 06/30/23 14:30 Nasal Cannula 2 Intake/Output Intake/Output: Intake & Output 06/28/23 06/29/23 06/30/23 07/01/23 23:59 23:59 23:59 23:59 Intake Total 2890 3540 3560 1230 Output Total 612 078 1968 700 Balance 2740 3390 2260 530 Meds/Results Medications: Active Medications Generic Name Dose Route Start Last Admin Trade Name Freq PRN Reason Stop Dose Admin Acetaminophen 650 mg 06/27/23 15:21 06/29/23 21:23 Acetaminophen 325 Mg Tablet PO 650 mg Q4H PRN Administration Mild Pain (1-3) or Fever Cephalexin HCl 500 mg 06/30/23 12:00 07/01/23 13:19 Cephalexin 500 Mg Capsule PO 500 mg Q6HR LISANDRA Administration Dextrose 12.5 gm 06/27/23 19:08 06/28/23 05:40 Dextrose 50% 25 Gm/50 Ml Syringe IV PUSH 12.5 gm PRN PRN Administration Hypoglycemia Protocol
--- NOTE | 2023-07-01 13:50 | PCOTNOTE ---
Attempted again this P.M. for OT treatment session. Therapist gathered a wheelchair and sliding board for Patient to practice transfers this session. Patient declined to get up out of bed or participate in any other activity this afternoon. Patient stated, I don't feel good, I need left alone .
[2023-07-01 17:00] LABS: Glucose Point of Care 75 mg/dl (65-105)
[2023-07-01 17:39] LABS: Glucose Point of Care 97 mg/dl (65-105)
[2023-07-01 21:06] LABS: Glucose Point of Care 121 mg/dl (65-105)
[2023-07-02] VITALS: PULSE 86
[2023-07-02 04:00] VITALS: PULSE 88
[2023-07-02] MEDS: CEPHALEXIN 500 MG CAPSULE PO (05:07)
[2023-07-02 06:00] VITALS: BP 119/83; PULSE 89; RESP 16; TEMP 36.6; O2SAT 99
[2023-07-02 06:10] LABS: Hematocrit 21.5 % (37.0-47.0); Hemoglobin 7.1 g/dL (12.0-15.0); Mean Corpuscular Hemoglobin 27.3 pg (26-34); Mean Corpuscular Volume 82.7 fl (80-100); Mean Platelet Volume 9.4 fl (7.4-10.4); Platelet Count Result 153 k/mm3 (150-375); Red Cell Distribution Width 23.2 % (11.5-14.5); White Blood Count 4.7 K/mm3 (4.5-10.0)
[2023-07-02 06:30] LABS: Alanine Aminotransferase 17 U/L (6-35); Albumin Level 1.9 g/dL (3.5-5.1); Alkaline Phosphatase 413 U/L (38-126); Anion Gap 1 mmol/L (8-16); Aspartate Amino Transferase 101 U/L (14-36); Blood Urea Nitrogen 4 mg/dL (7-17); Calcium 7.2 mg/dL (8.4-10.2); Carbon Dioxide 29 mmol/L (22-30); Chloride 103 mmol/L (98-107); Estimated CRCL calculation 86 ml/min; Estimated Glomerular Filt Rate > 60; Glucose 83 mg/dL (65-110); Magnesium 1.5 mg/dL (1.6-2.3); Potassium 3.6 mmol/L (3.4-5.0); Sodium 133 mmol/L (137-145)
[2023-07-02 07:53] LABS: Glucose Point of Care 76 mg/dl (65-105)
[2023-07-02 08:00] VITALS: PULSE 92
[2023-07-02] MEDS: ENOXAPARIN 40 MG/0.4 ML SYRINGE SUB-Q (08:37)
[2023-07-02] MEDS: SILVERGEL (ELTA) 45 ML 1 APPLIC TOPICAL (08:37)
[2023-07-02] MEDS: MAGNESIUM SULF 2 GM/WATER 50ML 2 GM/50 ML BAG IVPB (09:59)
[2023-07-02 11:20] LABS: Glucose Point of Care 86 mg/dl (65-105)
--- NOTE | 2023-07-02 11:41 | PCSTNOTE ---
Patient seen for bedside swallowing evaluation. Per nursing, patient states she is unable to swallow pills and insists that all pills be crushed. For today's bedside swallowing evaluation patient is positioned upright in bed and engaging in conversation with PRODUCT CONSULTANT. Trials of applesauce by spoon were given and swallowing abilities are within functional limits. Trials of thin liquid by straw were given and no signs of penetration or aspiration were observed. Patient is receiving a regular texture diet with thin liquids and has a banana on her bedside table. Per patient, she can eat regular food but can't swallow pills and will not attempt to swallow one capsule placed in applesauce during this evaluation. Advised patient that not all pills can be crushed and that there appears to be no reason that she cannot swallow a single pill in a spoon with applesauce. Her response was that she won't do it and if pills cannot be crushed she won't take them. When advised that she needs to take her antibiotic capsule to treat her UTI she stated that she doesn't care, she will not take them. No further speech therapy is recommended for this patient. Thank you for the referral of this patient.
--- NOTE | 2023-07-02 11:41 | PC.NURSE ---
Pt initially stated that she could not swallow and has had swallowing problems for a long time therefore I needed to crush her meds. I explained to her that her meds could not be crushed and we would need to do a swallow study. The speech therapist and I attempted to administer meds as part of the test including putting them in applesauce. Pt refused to cooperate and then admitted, I don't have swallowing problems I just don't want to take pills. I will not take pills no matter what. Give me a shot. Speech therapist stated that pt does not have swallowing problems and that it is simply patient refusal. Hospitalist, Benja Rose, called and made aware of this situation. Patient educated on need for meds, etc. Pt continues to refuse all PO meds.
[2023-07-02 12:00] VITALS: PULSE 92
--- NOTE | 2023-07-02 12:59 | PM.DS ---
DS: Admitting Diagnosis Discharge Date 07/02/2023 Admitting Diagnosis Acute kidney injury Electrolyte abnormality Intractable nausea and vomiting Dehydration Hypoglycemia Cellulitis of leg Chronic anemia Hypertension DS: Discharge Diagnosis Discharge Diagnosis (1) Electrolyte abnormality: Code(s): E87.8 - Other disorders of electrolyte and fluid balance, not elsewhere classified Status: Acute (2) Hypomagnesemia: Code(s): E83.42 - Hypomagnesemia Status: Acute (3) Hyponatremia: Code(s): E87.1 - Hypo-osmolality and hyponatremia Status: Acute (4) Hypoglycemia: Code(s): E16.2 - Hypoglycemia, unspecified Status: Acute (5) Hypokalemia: Code(s): E87.6 - Hypokalemia Status: Acute (6) Intractable nausea and vomiting: Code(s): R11.2 - Nausea with vomiting, unspecified Status: Acute (7) Acute kidney injury: Code(s): N17.9 - Acute kidney failure, unspecified Status: Acute (8) Dehydration: Code(s): E86.0 - Dehydration Status: Acute (9) Cellulitis of right lower leg: Code(s): L03.115 - Cellulitis of right lower limb Status: Acute (10) Hypertension: Code(s): I10 - Essential (primary) hypertension Status: Chronic (11) UTI (urinary tract infection): Code(s): N39.0 - Urinary tract infection, site not specified Status: Acute (12) Chronic anemia: Code(s): D64.9 - Anemia, unspecified Status: Acute Plan Patient to discharge to [facility] for therapy for strengthening and rehabilitation. DS: Summary Hospital Course Reason for hospitalization: This is a 67-year-old female patient who was admitted to the hospital due to intractable nausea and vomiting with resultant electrolyte abnormalities and CARL. Hospital Course: For the first couple of days patient required dextrose infusions to maintain adequate glucose. Patient denies any accidental insulin exposure. She was found to have wound on her right lower leg with cellulitis as well as a urinary tract infection. Patient treated with IV Rocephin which was transitioned to oral Keflex and she has been improving. Blood pressures were on the low side so her antihypertensives were held. She also had low sodium but is known to have chronic low-sodium. Nephrology was on consult just as her electrolytes began to stabilize. Patient has been tolerating regular diet thin liquids with dietary supplements. She has had occasional nausea here and there but vomiting has not been present for or at least 4 days. On day of discharge bedside swallow exam was completed by speech therapy as triggered by nursing assessment that patient would not swallow her pills. Speech therapist states that swallowing mechanism is in place and intact and she tolerates diet normally but just will not be able to swallow pills. Medications were adjusted to allow crushing or opening of capsules to mix with applesauce. As patient is no longer requiring inpatient level care, she is being discharged to SNF to continue rehabilitation with plans of ultimate discharge home with [facility] home health. Status at Discharge Functional status at discharge: wheelchair bound Overall status at discharge: patient is progressing back to baseline Time Spent with Patient Time attestation: Total time spent providing and/or coordinating discharge services: 35 Time spent: Greater than 30 minutes Exam Narrative: General: chronically ill appearing 67-year-old female, laying in bed, comfortable Neuro: alert and oriented x4, speech clear, no focal neuro deficits noted HEENMT: normocephalic, atraumatic, EOMI, sclerae anicteric, moist oral mucosa Respiratory: Clear to auscultation bilaterally without crackles, rhonchi or wheezes, nonlabored breathing on room air Cardio: regular rate, regular rhythm with S1-S2 Abdomen: nondistended, normoactive bowel sounds, soft, nontender to palpation, h
[2023-07-02 13:39] LABS: SARS-CoV-2 RNA PCR Negative (Negative)
--- NOTE | 2023-07-02 13:43 | P.PNNP_ITS ---
Progress Note: A&P Assessment and Plan (1) Hyponatremia: Code(s): E87.1 - Hypo-osmolality and hyponatremia Status: Acute Assessment and Plan: * Chronic hyponatremia. Sodium level runs in the low 130s. * evaluation to date: * TSH okay * cortisol low but stim test okay * urine electrolytes non-prerenal * No DATA MINER symptoms. * CXR results NAD * CT abdomen unremarkable * SPEP/UPEP and serum/urine osmolality pending * risk factors for low sodium: * HCTZ use * PPI use * diuretic use (lasix) * pain issues (PRN tramadol) * lung disease (asthma) * prerenal factors (nausea and vomiting)was on salt tabs but on hold * will consider resuming if sodium drops again * This sodium level is being observed. She is off the hydrochlorothiazide. * Currently getting sodium gradually better. Today it is 133. This is about what she usually runs. (2) Hypokalemia: Code(s): E87.6 - Hypokalemia Status: Acute Assessment and Plan: * due to GI loss, low magnesium, and possible total body store depletion * Resolved (3) Hypomagnesemia: Code(s): E83.42 - Hypomagnesemia Status: Acute Assessment and Plan: * acute on chronic issue (on magneisum supplementation chronically) * suspect worsenened by GI loss/nausea/vomiting * Magnesium low this morning and was given IV magnesium this morning as well. Now on magnesium tablets. (4) Cellulitis of right leg: Code(s): L03.115 - Cellulitis of right lower limb Status: Acute Assessment and Plan: * as suspected by RLE appearance * wound care following * on antibiotics (5) Intractable nausea and vomiting: Code(s): R11.2 - Nausea with vomiting, unspecified Status: Acute Assessment and Plan: * etiology not clear - related to recent surgery? * however, still with on/off nausea but vomiting resolved * continue IV antiementics PRN * This seems better. (6) Hypertension: Code(s): I10 - Essential (primary) hypertension Status: Chronic Assessment and Plan: * Systolic 119 today. * BP mediations on hold * follow trend of parameters Subjective Date/time seen: 07/02/23 13:43 Interval history: Follow-up for hyponatremia and hypokalemia. The patient feels better today. No nausea or vomiting. She denies diarrhea. Eating pretty well. Review of Systems Cardiovascular: Cardiovascular: Reports no additional cardiovascular complaints Respiratory: Respiratory: Reports no additional respiratory complaints Gastrointestinal: Gastrointestinal: Reports no additional gastrointestinal complaints Genitourinary: Genitourinary: Reports no additional female genitourinary complaints Exam Narrative: WDWN in NAD skin no rash head ncat lungs clear cor reg no rub abd BS+ nontender and soft ext no edema. Objective Data Vital Signs Vital Signs: Vital Signs - 24 hr 07/01/23 14:00 07/01/23 16:00 07/01/23 20:00 Temperature 97.8 F Pulse Rate 83 88 Respiratory Rate 20 Blood Pressure 112/66 Pulse Oximetry 100 100 Oxygen Delivery Room Air Fraction of Inspired Oxygen 07/01/23 20:00 07/01/23 22:00 07/02/23 00:00 Temperature 97.
--- NOTE | 2023-07-02 13:43 | PM.PNNEP ---
Progress Note: A&P Assessment and Plan (1) Hyponatremia: Code(s): E87.1 - Hypo-osmolality and hyponatremia Status: Acute Assessment and Plan: Chronic hyponatremia. Sodium level runs in the low 130s. evaluation to date: TSH okay cortisol low but stim test okay urine electrolytes non-prerenal No TRAPEZE ARTIST symptoms. CXR results NAD CT abdomen unremarkable SPEP/UPEP and serum/urine osmolality pending risk factors for low sodium: HCTZ use PPI use diuretic use (lasix) pain issues (PRN tramadol) lung disease (asthma) prerenal factors (nausea and vomiting)was on salt tabs but on hold will consider resuming if sodium drops again This sodium level is being observed. She is off the hydrochlorothiazide. Currently getting sodium gradually better. Today it is 133. This is about what she usually runs. (2) Hypokalemia: Code(s): E87.6 - Hypokalemia Status: Acute Assessment and Plan: due to GI loss, low magnesium, and possible total body store depletion Resolved (3) Hypomagnesemia: Code(s): E83.42 - Hypomagnesemia Status: Acute Assessment and Plan: acute on chronic issue (on magneisum supplementation chronically) suspect worsenened by GI loss/nausea/vomiting Magnesium low this morning and was given IV magnesium this morning as well. Now on magnesium tablets. (4) Cellulitis of right leg: Code(s): L03.115 - Cellulitis of right lower limb Status: Acute Assessment and Plan: as suspected by RLE appearance wound care following on antibiotics (5) Intractable nausea and vomiting: Code(s): R11.2 - Nausea with vomiting, unspecified Status: Acute Assessment and Plan: etiology not clear - related to recent surgery? however, still with on/off nausea but vomiting resolved continue IV antiementics PRN This seems better. (6) Hypertension: Code(s): I10 - Essential (primary) hypertension Status: Chronic Assessment and Plan: Systolic 119 today. BP mediations on hold follow trend of parameters Subjective Date/time seen: 07/02/23 13:43 Interval history: Follow-up for hyponatremia and hypokalemia. The patient feels better today. No nausea or vomiting. She denies diarrhea. Eating pretty well. Review of Systems Cardiovascular: Cardiovascular: Reports no additional cardiovascular complaints Respiratory: Respiratory: Reports no additional respiratory complaints Gastrointestinal: Gastrointestinal: Reports no additional gastrointestinal complaints Genitourinary: Genitourinary: Reports no additional female genitourinary complaints Exam Narrative: WDWN in NAD skin no rash head ncat lungs clear cor reg no rub abd BS+ nontender and soft ext no edema. Objective Data Vital Signs Vital Signs: Vital Signs - 24 hr 07/01/23 14:00 07/01/23 16:00 07/01/23 20:00 Temperature 97.8 F Pulse Rate 83 88 Respiratory Rate 20 Blood Pressure 112/66 Pulse Oximetry 100 100 Oxygen Delivery Room Air Fraction of Inspired Oxygen 21 07/01/23 20:00 07/01/23 22:00 07/02/23 00:00 Temperature 97.9 F Pulse Rate 89 75 86 Respiratory Rate 20 Blood Pressure 114/68 Pulse Oximetry 99 Oxygen Delivery Fraction of Inspired Oxygen 07/02/23 04:00 07/02/23 06:00 07/02/23 08:00 Temperature 97.8 F Pulse Rate 88 89 92 Respiratory Rate 16 Blood Pressure 119/83 Pulse Oximetry 99 Oxygen Delivery Fraction of Inspired Oxygen 07/02/23 08:35 07/02/23 12:00 Temperature Pulse Rate 92 Respiratory Rate Blood Pressure Pulse Oximetry Oxygen Delivery Room Air Fraction of Inspired Oxygen Intake/Output Intake/Output: Intake & Output 06/29/23 06/30/23 07/01/23 07/02/23 23:59 23:59 23:59 23:59 Intake Total 3540 3560 1230 780 Output Total 150 1300 700 200 Balance 3390 2260 530 580 Meds/Results Medicatio
[2023-07-02 14:00] VITALS: BP 109/69; PULSE 88; RESP 18; TEMP 36.5; O2SAT 98
[2023-07-02 16:40] LABS: Glucose Point of Care 92 mg/dl (65-105)
[2023-07-05 20:08] LABS: Osmolality, Urine 339 mOsm/kg (50-1200)
[2023-07-06 12:35] LABS: Albumin 1.9 g/dL (3.8-4.8); Alpha 1 Globulin 0.2 g/dL (0.2-0.3); Alpha 2 Globulin 0.5 g/dL (0.5-0.9); Beta 1 Globulin 0.2 g/dL (0.4-0.6); Gamma Globulin 1.4 g/dL (0.8-1.7); Protein, Total 4.6 g/dL (6.1-8.1)
[2023-07-07 00:29] LABS: Kappa\\Lambda Light Chains 0.57 (0.26-1.65); Lambda Light Chain 77.9 mg/L (5.7-26.3)
[2023-07-08 22:20] LABS: Creatinine, Random Urine 50 mg/dL (20-275); Total Protein/Creatinine Ratio 440 mg/g creat (24-184)
== END 2023-07-02 17:42 | DRG 682 ==
LOC: ANHED 10:41 → ANH3MEDSUR 17:00
PROVIDERS: Internal Medicine Nephrology; Nurse Practitioner Acute Care; Physician Assistant; Admitting Provider Chiropractor; Emergency Provider Emergency Medicine; PCP Family Medicine; Visit Provider Nurse Practitioner
DX: N17.9 Acute kidney failure, unspecified (principal); E43 Unspecified severe protein-calorie malnutrition; E87.1 Hypo-osmolality and hyponatremia; L03.115 Cellulitis of right lower limb; R64 Cachexia; N39.0 Urinary tract infection, site not specified; Z20.822 Contact with and (suspected) exposure to COVID-19; R11.2 Nausea with vomiting, unspecified; I10 Essential (primary) hypertension; F41.8 Other specified anxiety disorders; J45.909 Unspecified asthma, uncomplicated; E86.0 Dehydration; I73.9 Peripheral vascular disease, unspecified; E16.2 Hypoglycemia, unspecified; E83.42 Hypomagnesemia; E87.6 Hypokalemia; D64.9 Anemia, unspecified; M19.90 Unspecified osteoarthritis, unspecified site; Z96.653 Presence of artificial knee joint, bilateral; Z98.42 Cataract extraction status, left eye; Z98.41 Cataract extraction status, right eye; Z89.612 Acquired absence of left leg above knee; Z68.23 Body mass index [BMI] 23.0-23.9, adult; Z90.49 Acquired absence of other specified parts of digestive tract
CPT/HCPCS: 36415; 71046; 74018; 74150; 80048; 80053; 81001; 81050; 82533; 82550; 82570; 82948; 83690; 83735; 83883; 83930; 83935; 84134; 84155; 84156; 84165; 84166; 84295; 84300; 84443; 84540; 85025; 85027; 85999; 87086; 87088; 87635; 92610; 93005; 93971; 96361; 96365; 96366; 96367; 96375; 96376; 97161; 97165; 97535; 99285; A9270; G0378; J0690; J0834; J1650; J2405; J3475; J3480; J7030; J7040; J7042; J7120; P9045

== ENCOUNTER 2023-07-07 07:12 | Outpatient (RCR) | payer OTHER, MEDICARE, MEDICAID, SELFPAY ==
[2023-07-07] VITALS (11 sets, daily range): BP systolic 91–119; BP diastolic 49–66; PULSE 60–71; RESP 14–18; TEMP 36.6–37.2; O2SAT 97–100
[2023-07-07 07:48] LABS: Hematocrit 21.1 % (37.0-47.0)
[2023-07-07 07:49] LABS: Hemoglobin 6.7 g/dL (12.0-15.0)
[2023-07-07] MEDS: SODIUM CHLORIDE 0.9% IV 250 ML 30 ML IV CONT (08:43)
[2023-07-07] MEDS: FUROSEMIDE INJ 40 MG/4 ML VIAL 20 MG IV PUSH (11:17)
--- NOTE | 2023-07-07 16:01 | PC.NURSE ---
pt left the facility via [facility] to go back to [facility]. PCS sheet filled out and given to EMS providers.
== END 2023-10-05 23:59 | disposition home or self-care (01) ==
LOC: ANHCPCTRAN 07:12
PROVIDERS: PCP Family Medicine; Visit Provider Family Medicine
DX: D64.9 Anemia, unspecified (principal)
CPT/HCPCS: 36415; 36430; 85014; 85018; 86850; 86900; 86901; 86923; 96374; J1940; J7050; P9016

== ENCOUNTER 2023-07-25 02:32 | Emergency (ER) | payer MEDICARE, MEDICAID, SELFPAY ==
[2023-07-25] VITALS (19 sets, daily range): BP systolic 119–141; BP diastolic 72–85; PULSE 94–110; RESP 12–32; TEMP 37.2–38.2; O2SAT 95–100
--- NOTE | ~2023-07-25 | XR_ITS ---
AP view of the pelvis Clinical history: Status post fall Findings: No acute fracture or dislocation is seen. Bilateral hip arthroplasties are in place. No sweta dware complication is evident. Lumbosacral spinal fixation hardware present. Soft tissues are unremar kable. Impression: No acute fracture or dislocation seen. Bilateral hip arthroplasties in place. Reviewed, dictated and finalized at location . Impression: No acute fracture or dislocation seen. Bilateral hip arthroplasties in place.
--- NOTE | ~2023-07-25 | XR_ITS ---
Right Knee Technique: AP, lateral, and oblique views were obtained. Clinical History: Pain Findings: No fracture or dislocation is seen. Right knee arthroplasty hardware is in place. Mild subc utaneous soft tissue edema present. No joint effusion is seen. Impression: No fracture or dislocation. Right knee arthroplasty in place. Subcutaneous soft tissue edema. Reviewed, dictated and finalized at location . Impression: No fracture or dislocation. Right knee arthroplasty in place. Subcutaneous soft tissue edema.
--- NOTE | ~2023-07-25 | CT_ITS ---
Non-contrast CT scan of the Pelvis Clinical indication: Trauma, pelvic pain Technique: 2.5 mm axial scans were obtained through the pelvis without intravenous or oral contrast. Dose reduction technique was used on this scan by utilizing automated exposure control and iterative reconstruction technique. The dose-length product (DLP) was 489.79 mGy-cm. COMPARISON: 06/01/2023 Findings: No acute fracture or dislocation is identified. Bilateral hip arthroplasties are in place. There is posterior fusion hardware from L4 to L5, bilateral rods and transpedicular screws present. N o hardware complication identified. Bowel loops are unremarkable. Urinary bladder unremarkable. No adnexal mass evident. No ascites. No s oft tissue hematoma seen about the pelvis. Impression: No acute post traumatic abnormality. No fracture, dislocation, or hematoma. Bilateral hip arthroplasties and lumbar spinal fusion hardware, as above. Reviewed, dictated and finalized at [facility]. Impression: No acute post traumatic abnormality. No fracture, dislocation, or hematoma. Bilateral hip arthroplasties and lumbar spinal fusion hardware, as above.
--- NOTE | ~2023-07-25 | CT_ITS ---
CT head without contrast Indication: Head trauma Technique: Serial scans were obtained through the brain without the administration of contrast. Dose reduction technique was used on this scan by utilizing automated exposure control and iterative recon struction technique. The dose-length product (DLP) was 983.67 mGy-cm. Findings: There is no evidence of intracranial hemorrhage, mass lesion, or acute infarct. The ventri cles and subarachnoid spaces are unremarkable. Low attenuation regions are seen within the periventr icular white matter bilaterally, likely representing changes from chronic microvascular ischemic dise ase. There is no evidence of edema, mass effect or midline shift. The visualized paranasal sinuses and mastoid air cells are clear. Impression: No intracranial hemorrhage, mass, or acute infarct. Mild chronic white matter changes, as above. Reviewed, dictated and finalized at location . Impression: No intracranial hemorrhage, mass, or acute infarct. Mild chronic white matter changes, as above.
--- NOTE | 2023-07-25 03:12 | PC.NURSE ---
When pt changed into gown bugs were noted all around pt and her belongings.
--- NOTE | 2023-07-25 03:51 | ED.FALL ---
HPI - Fall General Chief Complaint: Fall <Alva Busch MD - Last Filed: 07/25/23 07:33> Stated Complaint: FELL OUT OF W/C, RLE LAC <Alva Busch MD - Last Filed: 07/25/23 07:33> Time Seen by Provider: 07/25/23 02:44 <Alva Busch MD - Last Filed: 07/25/23 07:33> History of Present Illness HPI Narrative: Patient presents to the emergency department by EMS from home. She has a below the knee amputation on the left and is wheelchair-bound. Fell out of her wheelchair tonight. Has a right knee laceration and left hip pain. Denies head trauma <Alva Busch MD - Last Filed: 07/25/23 07:33> Related Data Home Medications: Home Medications Medication Instructions Recorded Confirmed ropinirole 4 mg tablet 4 mg PO HS PRN Restless Leg(S) 08/11/20 07/14/23 atenolol 50 mg tablet (Tenormin) 50 mg PO DAILY 09/10/20 07/14/23 cyclobenzaprine 10 mg tablet 10 mg PO HS PRN BACK SPASM 09/10/20 07/14/23 <Alva Busch MD - Last Filed: 07/25/23 07:33> Allergies/Adverse Reactions: Allergies Allergy/AdvReac Type Severity Reaction Status Date / Time No Known Allergies Allergy Verified 06/27/23 17:46 <Alva Busch MD - Last Filed: 07/25/23 07:33> Review of Systems Review of Systems: CONSTITUTIONAL: Denies fever, chills, or sweats. EYES: Denies visual changes, redness, or discharge. ENT: Denies rhinorrhea, congestion, sore throat, or otalgia. CARDIOVASCULAR: Denies chest pain, palpitations, or edema. RESPIRATORY: Denies cough or dyspnea. GASTROINTESTINAL: Denies abdominal pain, nausea, vomiting, or diarrhea. GENITOURINARY: Denies dysuria or hematuria. SKIN: Denies rash or itching. MUSCULOSKELETAL: Denies back pain, joint pain, or myalgia. NEUROLOGIC: Denies headache, numbness, or weakness. PSYCHIATRIC: Denies anxiety or depression. <Alva Busch MD - Last Filed: 07/25/23 07:33> PMFSH Past Medical History Medical History: Medical History (Updated 07/25/23 @ 08:39 by Alexander Lopez MD) Anxiety Arthritis Asthma Chronic anemia Depression with anxiety Hypertension Lymphedema of right lower extremity <Alva Busch MD - Last Filed: 07/25/23 07:33> Surgical History Surgical History: Surgical History (Updated 06/27/23 @ 21:45 by Zahraa Weber PA-C) History of bilateral carpal tunnel release History of bilateral cataract extraction History of bilateral knee replacement Left 2014 Right 2015. History of left above knee amputation History of tubal ligation <Alva Busch MD - Last Filed: 07/25/23 07:33> Family History Family History: Family History Mother Cancer Father Cancer <Alva Busch MD - Last Filed: 07/25/23 07:33> Social History Social History: Social History Social History: Surrogate medical decision maker: Trey Pickett, [place]. Code status: Full code. Smoking status: Never smoker Second hand tobacco smoke exposure: No Alcohol intake: never Substance use: never Substance use type: does not use Lack of Transportation: No Lack of Food: Never True Current Housing: I Have Housing Concerned About Future Housing: No Difficulty Paying Gas/Electric Bills: No Difficulty Paying for Meds: No Currently Unemployed: No Education: High School Diploma/GED Difficulty w/ Childcare or Family Care: No Additional living arrangements comments: . Lives with son in [place]. Spiritual care concerns: No <Alva Busch MD - Last Filed: 07/25/23 07:33> Exam Narrative: GENERAL: Well-appearing, well-nourished, and in no acute distress. HEAD: Normocephalic, atraumatic. ENT: Nares clear, no rhinorrhea or epistaxis. Mucous membranes moist. NECK: Normal ROM CHEST: No respiratory distress. EXTREMITIES: Normal range of motion
[2023-07-25 08:15] LABS: Basophils Percent Auto 0.6 % (0.2-1.2); Hematocrit 38.3 % (37.0-47.0); Hemoglobin 12.4 g/dL (12.0-15.0); Immature Granulocyte Absolute 0.02 K/mm3 (0.00-0.031); Immature Granulocyte Percent A 0.4 % (0-0.5); Lymphocytes Absolute Auto 1.08 K/mm3 (0.9-3.2); Lymphocytes Percent Auto 19.9 % (18.3-44.2); Mean Corpuscular HGB Conc 32.4 g/dl (32-36); Mean Corpuscular Hemoglobin 29.9 pg (26-34); Mean Corpuscular Volume 92.3 fl (80-100); Mean Platelet Volume 10.1 fl (7.4-10.4); Monocytes Absolute Auto 0.7 K/mm3 (0.1-0.6); Monocytes Percent Auto 12.2 % (2.6-8.5); Neutrophils Absolute Auto 3.6 K/mm3 (1.3-6.7); Neutrophils Percent Auto 66.9 % (45.5-73.1); Nucleated Red Blood Cells Perc 0.4 % (0.0-0.2); Platelet Count Result 239 k/mm3 (150-375); Red Blood Count 4.15 M/mm3 (4.2-5.4); Red Cell Distribution Width 18.9 % (11.5-14.5); White Blood Count 5.4 K/mm3 (4.5-10.0)
[2023-07-25 08:24] LABS: Alanine Aminotransferase 18 U/L (6-35); Albumin Level 2.8 g/dL (3.5-5.1); Alkaline Phosphatase 106 U/L (38-126); Anion Gap 8 mmol/L (8-16); Aspartate Amino Transferase 60 U/L (14-36); Bilirubin,Total 0.5 mg/dL (0.2-1.3); Blood Urea Nitrogen 14 mg/dL (7-17); Calcium 7.9 mg/dL (8.4-10.2); Carbon Dioxide 22 mmol/L (22-30); Chloride 102 mmol/L (98-107); Estimated CRCL calculation 60 ml/min; Estimated Glomerular Filt Rate > 60; Glucose 78 mg/dL (65-110); Potassium 4.1 mmol/L (3.4-5.0); Sodium 132 mmol/L (137-145)
== END 2023-07-25 09:17 | disposition home or self-care (01) ==
PROVIDERS: Emergency Provider Emergency Medicine; PCP Family Medicine
DX: S81.011A Laceration without foreign body, right knee, initial encounter (principal); M25.552 Pain in left hip; Z89.512 Acquired absence of left leg below knee; W05.0XXA Fall from non-moving wheelchair, initial encounter; I10 Essential (primary) hypertension; D64.9 Anemia, unspecified; Z96.651 Presence of right artificial knee joint
CPT/HCPCS: 12002; 36415; 70450; 72170; 72192; 73562; 80053; 85025; 86850; 86900; 86901; 99284

== ENCOUNTER 2025-04-04 11:27 | Inpatient (IN) | payer MEDICARE, MEDICAID, SELFPAY ==
[2025-04-04] VITALS (17 sets, daily range): BP systolic 85–142; BP diastolic 41–75; PULSE 60–73; RESP 12–22; TEMP 36.7–36.9; O2SAT 97–100
--- NOTE | ~2025-04-04 | CT_ITS ---
History: Fall PROCEDURE: CT head without contrast. COMPARISON: 07/25/2023 TECHNIQUE: Axial imaging of the head performed from the skull base to the vertex without IV contrast. Sagittal a nd coronal reformations obtained. DLP: 681 mGy-cm FINDINGS: The ventricles are enlarged. The dilatation of the ventricles is proportional to the degree of sulcal prominence, not uncommon in the senescent brain. Decreased attenuation is identified within the periventricular white matter, likely secondary to micr ovascular ischemic disease, in a patient of this age. There is no mass, mass effect or midline shift. There is no abnormal extra-axial fluid collection or intracranial hemorrhage. Visualized paranasal sinuses are clear. The mastoid air cells are well aerated. No acute displaced fractures within the overlying cranium. Impression: No acute intracranial hemorrhage or suspicious mass effect. Reviewed, dictated and finalized at location A. Impression: No acute intracranial hemorrhage or suspicious mass effect.
--- NOTE | ~2025-04-04 | XR_ITS ---
EXAMINATION: XR chest 1V portable 04/07/2025 11:02 INDICATION: Altered mental status. Fever. PROCEDURE: AP portable chest COMPARISON: Comparison to multiple prior studies sequentially, with oldest reviewed study dated 09/14. FINDINGS: The lungs are clear. Mild cardiomegaly. Elevated right diaphragm. There are no pleural effu sions. There is no pneumothorax suspected. Generalized osteopenia. IMPRESSION: 1: NO ACUTE CARDIOPULMONARY DISEASE. Reviewed, dictated and finalized at location A.
--- NOTE | ~2025-04-04 | CT_ITS ---
History: Altered mental status PROCEDURE: CT head without contrast. COMPARISON: 04/04/2025 TECHNIQUE: Axial imaging of the head performed from the skull base to the vertex without IV contrast. Sagittal a nd coronal reformations obtained. Examination is limited secondary to motion artifact DLP: 577 mGy-cm FINDINGS: The ventricles are enlarged. The dilatation of the ventricles is proportional to the degree of sulcal prominence, not uncommon in the senescent brain. Decreased attenuation is identified within the periventricular white matter, likely secondary to micr ovascular ischemic disease, in a patient of this age. There is no large mass, significant mass effect or identifiable midline shift. There is no abnormal extra-axial fluid collection or large intracranial hemorrhage. Visualized paranasal sinuses are clear. The mastoid air cells are well aerated. No large acute displaced fractures within the overlying cranium. Impression: No large acute intracranial hemorrhage or suspicious significant mass effect. Reviewed, dictated and finalized at location A. Impression: No large acute intracranial hemorrhage or suspicious significant mass effect.
--- NOTE | ~2025-04-04 | CT_ITS ---
EXAMINATION: CT pelvis wo con, CT lumbar spine wo con DATE: 04/04/2025 12:56 INDICATION: Low back and pelvic pain post fall TECHNIQUE: 1. Computed tomography (CT) of the lumbar spine was performed without intravenous contrast. Sagittal and coronal reconstructions were performed. Automated exposure control and iterative reconstruction t echnique were employed. The dose-length product was 368.11 mGy-cm. 2. CT of the pelvis was performed without intravenous contrast. Additional sagittal and coronal recon structions were performed. Automated exposure control and iterative reconstruction technique were emp loyed. The dose length product was 253.35 mGy-cm. COMPARISON: CT abdomen and pelvis dated 06/01/2023 FINDINGS: Lumbar spine: Minimal thoracolumbar dextrocurvature and lumbar levocurvature. 4 mm retrolisthesis L1 on L2 and 4 mm anterolisthesis L4 on L5. L5 laminectomy and partial L4 laminectomy with instrumented L4-L5 posterio r spinal fusion with bilateral vertical kate and pedicle screw fixation. T11 compression fracture with 25% anterior vertebral body height loss. T12 burst fracture with 70% anterior vertebral body height loss and with 2 mm retropulsion along the posterior wall. L1 burst fracture with 25% anterior vertebr al body height loss and 2 mm retropulsion. Mild superior endplate compression fractures with 10% cent ral vertebral body height loss at L3 and L4. All of these appear unchanged since the prior CT. No acu te fracture identified. There is slight subtle widening of a few of the disc spaces resulting from ce ntral endplate depression related to the previous noted compression fractures. Moderate bilateral bruna al atrophy. Cholecystectomy clips at the gallbladder fossa. Paravertebral soft tissues are unremarkab le. Small bandlike discoid atelectasis at the basilar left lower lobe. The following disc levels are specifically discussed: T11-T12: The disc does not extend beyond the mildly retropulsed superior aspect of the posterior wall of T12. There is moderate bilateral facet joint osteoarthritis. There is no neural foraminal stenosi s. There is mild central canal stenosis. T12-L1: The disc does not extend beyond the mildly retropulsed inferior aspect posterior wall of T12. There is mild bilateral facet joint osteoarthritis. There is no neural foraminal stenosis. There is mild central canal stenosis. L1-L2: Disc is bulging. There is mild to moderate bilateral facet joint osteoarthritis. There is mode rate bilateral neural foraminal stenosis. There is mild central canal stenosis. L2-L3: Disc is bulging. There is mild left and moderate right facet joint osteoarthritis. There is mo derate bilateral neural foraminal stenosis. There is mild central canal stenosis. L3-L4: Metallic streak artifact from the vertical rods and L4 pedicle screws which limits evaluation the disc margin. There is moderate left and severe right facet joint osteoarthritis. There is moderat e bilateral neural foraminal stenosis. There is no no definitive central canal stenosis. L4-L5: The disc does not appear to extend beyond the more posterior L4-5 endplate margin. There is ad ditional metallic streak artifact posterior spinal fusion instrumentation. There is mild bilateral ne ural foraminal stenosis. There is posterior decompression with no central canal stenosis. L5-S1: Disc is mildly bulging. There is severe bilateral facet joint osteoarthritis. There is mild bi lateral neural foraminal stenosis. There is no central canal stenosis. Pelvis: Bilateral total hip arthroplasties which appear well seated in near-anatomic alignment. No fracture. Mild bilateral sacroiliac osteoarthritis. Portions of the pelvis are obscured by metallic streak amara fact from the arthroplasties. Visual is portions the bladder bowels in the lower poles of the bilater al kidneys, spleen and inferior aspect of the liver are unremarkable. Cholecystectomy clips at the ga llbladder fossa. No free fluid in the pelvis. IMPRESSION: 1. Mild lumbar spondylosis with impingement at L4-5 posterior spinal fusion and stable appearance of multiple chronic lumbar and lower thoracic compression and burst fractures as detailed above. No acut e osseous abnormality. 2. Bilateral total hip arthroplasties. No acute osseous abnormality in the pelvis or proximal femurs. Reviewed, dictated and finalized at location A. IMPRESSION: 1. Mild lumbar spondylosis with impingement at L4-5 posterior spinal fusion and stable appearance of multiple chronic lumbar and lower thoracic compression an d burst fractures as detailed above. No acute osseous abnormality. 2. Bilateral total hip arthroplasties. No acute osseous abnormality in the pelv is or proximal femurs.
--- NOTE | ~2025-04-04 | US_ITS ---
EXAM: RENAL ULTRASOUND HISTORY: Acute renal failure COMPARISON: None FINDINGS: RIGHT KIDNEY: Poor visualization of the right kidney secondary to acoustic penetration and patient po sitioning (patient in contracted state, laying on the right side). LEFT KIDNEY: 5.9 x 3.3 x 4.3 cm No hydronephrosis or renal calculi. The parenchyma of the left kidney is markedly increased in echogenicity. BLADDER: Limited evaluation secondary to poor acoustic penetration and positioning IMPRESSION: Limited evaluation secondary to poor acoustic penetration and patient positioning. Severe medical renal disease within the visualized atrophic left kidney. No left-sided hydronephrosis. Reviewed, dictated and finalized at location A. IMPRESSION: Limited evaluation secondary to poor acoustic penetration and patient positioni ng. Severe medical renal disease within the visualized atrophic left kidney. No left-sided hydronephrosis.
--- NOTE | 2025-04-04 12:14 | ECG_ITS ---
Test Date: 2025-04-04 12:31:54 Measurements Intervals [place] Rate: 71 P: 47 MN: 153 QRS: -7 QRSD: 110 T: 84 QT: 407 QTc: 444 Interpretive Statements SINUS RHYTHM LEFT VENTRICULAR HYPERTROPHY AND ST-T CHANGE [VOLTAGE CRITERIA PLUS ST/T ABNORMALITY] No previous ECG available for comparison Electronically Signed On 04-04-2025 14:14:20 CDT by Piotr Wadsworth M.D.
--- NOTE | 2025-04-04 12:15 | ED_ITS ---
HPI - Fall General Chief Complaint: Fall Stated Complaint: FALL Time Seen by Provider: 04/04/25 12:09 History of Present Illness HPI Narrative: Pt suffered ground level fall getting form bed to wheelchair this morning. Pt denies LOC. Pt has right hip and low back pain. Pt has sore on right knee that she says has been there for some time. Related Data Home Medications ?Medication ?Instructions ?Recorded ?Confirmed ?Last Taken ?Type ropinirole 4 mg tablet 4 mg PO HS PRN Restless Leg(S) 08/11/20 04/04/25 Unknown History atenolol 50 mg tablet (Tenormin) 50 mg PO DAILY 09/10/20 04/04/25 04/04/25 History Allergies Allergy/AdvReac Type Severity Reaction Status Date / Time No Known Allergies Allergy Verified 04/04/25 11:37 Review of Systems 2 Review of Systems: All systems reviewed & are unremarkable except as noted in HPI and below PMFSH Past Medical History Medical History (Updated 04/04/25 @ 16:45 by Cate Bradshaw APRN) Chronic anemia Hypertension Depression with anxiety Arthritis Anxiety Asthma Lymphedema of right lower extremity Surgical History Surgical History History of tubal ligation History of bilateral carpal tunnel release History of bilateral cataract extraction History of left above knee amputation History of bilateral knee replacement Left 2013 Right 2014. Family History Family History Mother Cancer Father Cancer Social History Social History Social History: Surrogate medical decision maker: Trey Pickett, [place]. Code status: Full code. Smoking status: Never smoker Second hand tobacco smoke exposure: No Alcohol intake: never Substance use: never Substance use type: does not use Do You Feel Safe in your Home?: Yes Lack of Transportation: No Lack of Food: Never True Current Housing: I Have Housing Concerned About Future Housing: No Difficulty Paying Gas/Electric Bills: No Difficulty Paying for Meds: No Currently Unemployed: No Education: High School Diploma/GED Difficulty w/ Childcare or Family Care: No Additional living arrangements comments: . Lives with son in [place]. Spiritual care concerns: No Exam 2 Const: General: no acute distress Orientation/consciousness: patient oriented x3 HENMT: Head: normal to inspection Eyes: Conjunctivae: conjunctivae normal Pupils: Equal, round and reactive pupils present Neck: Neck: normal visual inspection Resp: Effort & Inspection: normal respiratory effort Auscultation: clear to auscultation bilaterally Cardio: Rate: regular rate Rhythm: regular rhythm GI: Auscultation: normal bowel sounds Rectal Exam: normal sphincter tone (heme neg stool) Skin: General skin exam: normal color Rashes: no rashes Wounds: no wounds Other: numerous insects on pt crawling on skin Neuro: General: patient oriented x3, moves all extremities and no focal motor deficits Extrem: General: no clubbing, cyanosis or edema Other: ulcer knee and amutation other knee Psych: Mental Status: mental status grossly normal Affect: normal affect Attitude: cooperative Course Vital Signs Vital signs: Vital Signs Temperature 98.0 F 04/04/25 11:26 Pulse Rate 72 04/04/25 11:26 Respiratory Rate 16 04/04/25 11:26 Blood Pressure 129/49 L 04/04/25 11:26 Pulse Oximetry 100 04/04/25 11:26 Oxygen Delivery Room Air 04/04/25 11:26 Temperature 98.4 F 04/04/25 18:18 Pulse Rate 60 04/04/25 18:18 Respiratory Rate 18 04/04/25 18:18 Blood Pressure 110/64 04/04/25 18:18 Pulse Oximetry 98 04/04/25 18:18 Oxygen Delivery Room Air 04/04/25 17:10 MDM - Fall MDM Narrative Medical decision making narrative: Pt brought from home after fall when transferring from bed to wheelchair. Pt complains of hip pain. Living conditions reportedly poor with large insects all over her. will get labs and x rays. CT needed per radilogy given contracted state. No new fx's old compression fx's. Pt very anemic, heme neg, in renal failure. discussed with other son who lives in [facility]. Said he tried to bring her to [place] near him and she eventually signed out because she didn't want ot lose home or medicare check. Lives with son who is mentally challenged but makes her own decisions. Discussed with Cate Bradshaw and agrees to admit. transfuse 3 units prbc and consult nephrology non urgent. Lab Data 04/04/25 12:29 04/04/25 12:29 Labs: Lab Results 04/04/25 04/04/25 Range/Units 12:29 14:02 WBC 7.5 (4.5-10.0) K/mm3 RBC 1.65 L (4.2-5.4) M/mm3 Hgb 3.4 L* D (12.0-15.0) g/dL Hct 12.2 L* (37.0-47.0) % MCV 73.9 L (80-100) fl MCH 20.6 L (26-34) pg MCHC 27.9 L (32-36) g/dl RDW 16.6 H (11.5-14.5) % Plt Count 326 (150-375) k/mm3 MPV 8.6 (7.4-10.4) fl Immature Gran % (Auto) 1.1 H (0-0.5) % Neut % (Auto) 61.8 (45.5-73.1) % Lymph % (Auto) 20.7 (18.3-44.2) % Major % (Auto) 7.8 (2.6-8.5) % Eos % (Auto) 8.5 H (0-4.4) % Baso % (Auto) 0.1 L (0.2-1.2) % Lymph # (Auto) 1.56 (0.9-3.2) K/mm3 Major # (Auto) 0.6 (0.1-0.6) K/mm3 Eos # (Auto) 0.6 H (0-0.3) K/mm3 Baso # (Auto) 0.0 (0.0-0.1) K/mm3 Abs Immat Gran (auto) 0.08 H (0.00-0.031) K/mm3 Absolute Neuts (auto) 4.6 (1.3-6.7) K/mm3 Absolute Nucleated RBC 0.000 (0.0-0.012) K/mm3 Band Neutrophils % Not Reportable Nucleated RBC % 0.0 (0.0-0.2) % Platelet Estimate Adequate (Adequate) Hypochromasia 2+ Microcytosis 1+ (NORMAL) Schistocytes None seen PT 16.0 H (11.1-14.7) Seconds INR 1.2 APTT 36.2 (22.3-36.8) Seconds Sodium 135 L (137-145) mmol/L Potassium 4.0 (3.4-5.0) mmol/L Chloride 112 H (98-107) mmol/L Carbon Dioxide 14 L (22-30) mmol/L Anion Gap 9 (4-12) mmol/L BUN 48 H D (7-17) mg/dL Creatinine 4.70 H (0.7-1.0) mg/dL Estim Creat Clear Calc Not Reportable Estimated GFR 9 L (59 - ) Glucose 130 H (65-110) mg/dL Serum Osmolality Pending Calcium 7.6 L (8.4-10.2) mg/dL Iron Pending TIBC Pending % Saturation Pending Ferritin Pending Total Bilirubin 0.2 (0.2-1.3) mg/dL AST 31 (14-36) U/L ALT 13 (6-35) U/L Alkaline Phosphatase 198 H (38-126) U/L Total Creatine Kinase 45 (30-135) U/L C-Reactive Protein 6.3 H (<1.0) mg/dL Total Protein 7.0 (6.3-8.2) g/dL Albumin 2.7 L (3.5-5.1) g/dL Vitamin B12 Pending Folate Pending TSH (Reflex) Pending Hep Bs Antigen Pending Hep Bs Antibody Pending Blood Type AB Positive Antibody Screen Negative Crossmatch See Detail Discharge Plan Discharge Clinical Impression: Acute dehydration Anemia Qualifiers: Anemia type: unspecified type Qualified Code(s): D64.9 - Anemia, unspecified Acute renal failure Qualifiers: Acute renal failure type: unspecified Qualified Code(s): N17.9 - Acute kidney failure, unspecified Patient Disposition: Still a Patient Condition: Guarded Prognosis
--- OUTSIDE RECORDS SUMMARY | 2025-04-04 12:29 | XMS_ITS | CONTINUITY OF CARE DOCUMENT ---
Author Name stevo stevo Address Unknown Organization [facility] Address [address] [facility] [address] [place] [address] Phone [phone] Care Team Providers Care Railroad Dining Car Stewardess Name Role Phone Cristóbal Quinones MD Unavailable Cristóbal Quinones MD Unavailable YARY MATTHEWS MD Unavailable PROBLEMS Condition Status Date Provider Notes Cardiology examination active Cristóbal Quinones MD DVT active Cristóbal Quinones MD VENOUS INSUFFICIENCY active Cristóbal Quinones MD HYPERTENSION active Cristóbal Quinones MD ENCOUNTERS Date Type Provider Location Encounter Diag nosis - In-person encounter Office Visit Cristóbal Quinones MD [facility] Cardiology examinationDVTVENOUS INSUFFICIENCYHYPERTENSION VITAL SIGNS Date Observation Value Provider blood pressure, cuff size regular Ke rri Shefali blood pressure, diastolic 92 mm[Hg] Ke rri Shefali blood pressure, systolic 170 mm[Hg] Shelley Meehan oxygen saturation, oximetry 96 % Winnie Meehan respiratory rate E&M 14 /min Winnie mcknight pulse rate 88 /min Winnie cristina height E&M 62 [in_i] Winnie cristina HISTORY OF MEDICATION USE Medication Status Instructions Dates Provider Indications Com ments Eliquis 5 mg tablet active Take 1 tablet by mouth twice a day 3 Cristóbal Quinones MD albuterol sulfate 90 mcg/actuation HFA aerosol inhaler active Winnie Meehan ropinirole 4 mg tablet active Winnie Meehan lisinopril-hydr ochlorothiazide 20-12.5 mg tablet active Winnie Meehan SOCIAL HISTORY Date Observation Value Provider drug use no Cristóbal Quinones MD alcohol use no Cristóbal Quinones MD social history E&M S moking History: Franklyn maria has never smoked. Cristóbal Quinones MD social history reviewed E&M revi ewed - no changes required Cristóbal Quinones MD smoking status Never smoker Winnie isaac INSURANCE PROVIDERS Payer name Policy type / Coverage type [place] red libertarian ID [employer] GOLD PLUS O HMO [id number] [facility] Medicaid 1 [id number] ADVANCE DIRECTIVES Name Date DISCUSSED - NO DECISION MADE TREATMENT PLAN Date Name Performer [id number],C,on compressio n Cristóbal Quinones MD [id number],C,w ill put her on eliquis 5 mg po bid h ave her come back in 6 weeks to repeat her venous study and do a reflux study a lso check an erinn Cristóbal Quinones MD Cardiology:on compression Cristóbal Quinones MD Cardiology:will put her on eliquis 5 mg po bid h ave her come back in 6 weeks to repeat her venous study and do a reflux study a lso check an erinn Cristóbal Quinones MD Date Name Arterial Duplex Bi-L ower EX Venous Doppler Bilat eral LE - Reflux
--- OUTSIDE RECORDS SUMMARY | 2025-04-04 12:29 | XMS_ITS | Encounter Summary ---
Author Organization [facility] Facility Care Team Providers Care Broadcast Correspondent Name Role Phone No, Physician Primary Care Provider [phone] Tyler Trevizo MD Primary Care Provider [phone] Christiano James MD Unavailable [phone] Tyler Trevizo MD Primary Care Provider [phone] No, Physician Primary Care Provider [phone] Tyler Trevizo MD Primary Care Provider [phone] Jarek Sol DPM Unavailable [phone] Encounter Details Date Type Department Care Team (Latest Contact Info) Description 12/06/2014 Orders Only [facility] CLIN[facility] ProviderLilly MD [address] [place] [address] Social History Tobacco Use Types Packs/Day Years Used Date Smoking Tobacco: Never Assessed Comments Unknown Sex and Gender Information Value Date Recorded Sex Assigned at Not on file Legal Sex Female 11:55 AM ENVIRONMENTAL EDUCATOR Gender Identity Not on file Sexual Orientation Not on file documented as of this encounter Plan of Treatment Not on file documented as of this encounter Procedures Procedure Name Priority Date/Time Associated Diagnosis Comments SCAN - LABS 01/14/2017 12:00 AM ENVIRONMENTAL EDUCATOR documented in this encounter Results * SCAN - LABS (01/14/2017 12:00 AM ENVIRONMENTAL EDUCATOR) Narrative 01/14/2017 12:00 AM ENVIRONMENTAL EDUCATOR Ordered by an unspecified provider. us Historical Provider MD Final Res ult documented in this encounter Visit Diagnoses Not on filedocumented in this encounter Additional Health Concerns Infection Onset Date Last Indicated Resolved Time COVID: Suspected 07/25/2023 07/25/2023 07/25/2023 3:34 PM CDT COVID19 Comment:Airborne + Contact precautions. Gown, Gloves, N95, eye protection or goggles. Precautions 08/05/23. Contact Leasing Associate if patient worsens. LISA Denny 08/02/23 07/25/2023 07/25/2023 08/05/2023 3:06 AM C DT MRSA Comment:Contact Precautions (gown and gloves) LISA Denny 08/02/23 07/26/2023 07/26/2023 01/22/2024 3:05 AM C DT COVID: Recovered Comment:Added based on recent COVID infection. 08/05/2023 08/05/2023 11/03/2023 3:[address] documented as of this encounter Care Teams Broadcast Correspondent Relationship Specialty Start Date End Date No, Physician PCP - General 12/01/18 01/10/19 Tyler Trevizo MD [address] [address] PCP - General Emergency Medicine 02/22/19 08/27/19 Tyler Trevizo MD [address] [address] PCP - General 01/11/19 02/21/19 No Physician PCP - General 01/02/20 02/07/20 Tyler Trevizo MD [address] [address] PCP - General Emergency Medicine 02/08/20 Christiano James MD [address] [place] [address] Home Theater Experience Expert Cardiology 02/22/19 Jarek Sol DPM [address] [place] [address] Podiatry 02/14/23 documented as of this encounter
--- OUTSIDE RECORDS SUMMARY | 2025-04-04 12:29 | XMS_ITS | Encounter Summary ---
Author Organization [facility] Facility Care Team Providers Care Block Trader Name Role Phone No, Physician Primary Care Provider [phone] Tyler Trevizo MD Primary Care Provider [phone] Christiano James MD Unavailable [phone] Tyler Trevizo MD Primary Care Provider [phone] No, Physician Primary Care Provider [phone] Tyler Trevizo MD Primary Care Provider [phone] Jarek Sol DPM Unavailable [phone] Encounter Details Date Type Department Care Team (Latest Contact Info) Description 02/13/2015 Orders Only [facility] CLINCONV ProviderLilly MD [address] [place] [address] Social History Tobacco Use Types Packs/Day Years Used Date Smoking Tobacco: Never Assessed Comments Unknown Sex and Gender Information Value Date Recorded Sex Assigned at Not on file Legal Sex Female 11:55 AM MOLD UNLOADER Gender Identity Not on file Sexual Orientation Not on file documented as of this encounter Plan of Treatment Not on file documented as of this encounter Procedures Procedure Name Priority Date/Time Associated Diagnosis Comments CARDIOLOGY REPORT 01/14/2017 12: 00 AM MOLD UNLOADER documented in this encounter Results * CARDIOLOGY REPORT (01/14/2017 12:00 AM MOLD UNLOADER) Anatomical Region Laterality Modality Other Narrative 01/14/2017 12:00 AM MOLD UNLOADER Ordered by an unspecified provider. Historical Provider MD [facility] EMILY LEWIS Final Result documented in this encounter Visit Diagnoses Not on filedocumented in this encounter Additional Health Concerns Infection Onset Date Last Indicated Resolved Time COVID: Suspected 07/25/2023 07/25/2023 07/25/2023 3:34 PM CDT COVID19 Comment:Airborne + Contact precautions. Gown, Gloves, N95, eye protection or goggles. Precautions 08/05/23. Contact Pretzel Twisting Machine Operator if patient worsens. LISA Denny 08/02/23 07/25/2023 07/25/2023 08/05/2023 3:06 AM C DT MRSA Comment:Contact Precautions (gown and gloves) LISA Denny 08/02/23 07/26/2023 07/26/2023 01/22/2024 3:05 AM C DT COVID: Recovered Comment:Added based on recent COVID infection. 08/05/2023 08/05/2023 11/03/2023 3:[address] documented as of this encounter Care Teams Block Trader Relationship Specialty Start Date End Date No, Physician PCP - General 12/01/18 01/10/19 Tyler Trevizo MD [address] [place] [address] PCP - General Emergency Medicine 02/22/19 08/27/19 Tyler Trevizo MD [address] [address] PCP - General 01/11/19 02/21/19 No, Physician PCP - General 01/02/20 02/07/20 Tyler Trevizo MD [address] [address] PCP - General Emergency Medicine 02/08/20 Christiano James MD [address] [facility] [place] [address] Java Groovy Developer Cardiology 02/22/19 Jarek Sol DPM [address] [place] [address] Podiatry 02/14/23 documented as of this encounter
--- OUTSIDE RECORDS SUMMARY | 2025-04-04 12:29 | XMS_ITS | Encounter Summary ---
Author Organization [facility] Facility Care Team Providers Care Ssis Etl Developer Name Role Phone No, Physician Primary Care Provider [phone] Tyler Trevizo MD Primary Care Provider [phone] Christiano James MD Unavailable Tyler Trevizo MD Primary Care Provider [phone] No, Physician Primary Care Provider Tyler Trevizo MD Primary Care Provider [phone] Jarek Sol DPM Unavailable [phone] Encounter Details Date Type Department Care Team (Latest Contact Info) Description 12/08/2018 Orders Only [facility] CLINCONV ProviderLilly MD [address] [place] [address] Social History Tobacco Use Types Packs/Day Years Used Date Smoking Tobacco: Never Assessed Comments Unknown Sex and Gender Information Value Date Recorded Sex Assigned at Not on file Legal Sex Female 11:55 AM EARTH MOVER Gender Identity Not on file Sexual Orientation Not on file documented as of this encounter Plan of Treatment Not on file documented as of this encounter Procedures Procedure Name Priority Date/Time Associated Diagnosis Comments PROCEDURE - RESULT 12/08/2018 12 :00 AM EARTH MOVER documented in this encounter Results * PROCEDURE - RESULT (12/08/2018 12:00 AM EARTH MOVER) Narrative 12/08/2018 12:00 AM EARTH MOVER Ordered by an unspecified provider. us Historical Provider MD Final Res ult documented in this encounter Visit Diagnoses Not on filedocumented in this encounter Additional Health Concerns Infection Onset Date Last Indicated Resolved Time COVID: Suspected 07/25/2023 07/25/2023 07/25/2023 3:34 PM CDT COVID19 Comment:Airborne + Contact precautions. Gown, Gloves, N95, eye protection or goggles. Precautions 08/05/23. Contact Litigation Attorney if patient worsens. LISA Denny 08/02/23 07/25/2023 07/25/2023 08/05/2023 3:06 AM C DT MRSA Comment:Contact Precautions (gown and gloves) LISA Denny 08/02/23 07/26/2023 07/26/2023 01/22/2024 3:05 AM C DT COVID: Recovered Comment:Added based on recent COVID infection. 08/05/2023 08/05/2023 11/03/2023 3:[address] documented as of this encounter Care Teams Ssis Etl Developer Relationship Specialty Start Date End Date No, Physician PCP - General 12/01/18 01/10/19 Tyler Trevizo MD [address] [address] PCP - General Emergency Medicine 02/22/19 08/27/19 Tyler Trevizo MD [address] [address] PCP - General 01/11/19 02/21/19 No Physician PCP - General 01/02/20 02/07/20 Tyler Trevizo MD [address] [address] PCP - General Emergency Medicine 02/08/20 Christiano James MD [address] [place] [address] Service Correspondent Cardiology 02/22/19 Jarek Sol DPM [address] [place] [address] Podiatry 02/14/23 documented as of this encounter
--- OUTSIDE RECORDS SUMMARY | 2025-04-04 12:29 | XMS_ITS | Encounter Summary ---
Author Organization [facility] Facility Care Team Providers Care Hot Walker Name Role Phone No, Physician Primary Care Provider [phone] Tyler Trevizo MD Primary Care Provider [phone] Christiano James MD Unavailable [phone] Tyler Trevizo MD Primary Care Provider [phone] No, Physician Primary Care Provider [phone] Tyler Trevizo MD Primary Care Provider [phone] Jarek Sol DPM Unavailable [phone] Encounter Details Date Type Department Care Team (Latest Contact Info) Description 09/25/2018 Orders Only [facility] CLINCONV ProviderLilly MD [address] [place] [address] Social History Tobacco Use Types Packs/Day Years Used Date Smoking Tobacco: Never Assessed Comments Unknown Sex and Gender Information Value Date Recorded Sex Assigned at Not on file Legal Sex Female 11:55 AM SENIOR HARDWARE ENGINEER Gender Identity Not on file Sexual Orientation Not on file documented as of this encounter Plan of Treatment Not on file documented as of this encounter Procedures Procedure Name Priority Date/Time Associated Diagnosis Comments PROCEDURE - RESULT 09/25/2018 12 :00 AM SENIOR HARDWARE ENGINEER documented in this encounter Results * PROCEDURE - RESULT (09/25/2018 12:00 AM SENIOR HARDWARE ENGINEER) Narrative 09/25/2018 12:00 AM SENIOR HARDWARE ENGINEER Ordered by an unspecified provider. us Historical Provider MD Final Res ult documented in this encounter Visit Diagnoses Not on filedocumented in this encounter Additional Health Concerns Infection Onset Date Last Indicated Resolved Time COVID: Suspected 07/25/2023 07/25/2023 07/25/2023 3:34 PM CDT COVID19 Comment:Airborne + Contact precautions. Gown, Gloves, N95, eye protection or goggles. Precautions 08/05/23. Contact Rock Climbing Team Member if patient worsens. LISA Denny 08/02/23 07/25/2023 07/25/2023 08/05/2023 3:06 AM C DT MRSA Comment:Contact Precautions (gown and gloves) LISA Denny 08/02/23 07/26/2023 07/26/2023 01/22/2024 3:05 AM C DT COVID: Recovered Comment:Added based on recent COVID infection. 08/05/2023 08/05/2023 11/03/2023 3:[address] documented as of this encounter Care Teams Hot Walker Relationship Specialty Start Date End Date No, Physician PCP - General 12/01/18 01/10/19 Tyler Trevizo MD [address] [address] PCP - General Emergency Medicine 02/22/19 08/27/19 Tyler Trevizo MD [address] [address] PCP - General 01/11/19 02/21/19 No Physician PCP - General 01/02/20 02/07/20 Tyler Trevizo MD [address] [address] PCP - General Emergency Medicine 02/08/20 Christiano James MD [address] [place] [address] Claims Director Cardiology 02/22/19 Jarek Sol DPM [address] [place] [address] Podiatry 02/14/23 documented as of this encounter
--- OUTSIDE RECORDS SUMMARY | 2025-04-04 12:29 | XMS_ITS | Referral Summary ---
Author Organization [facility] Address [address] [place] [address] Phone Care Team Providers Care Endoscopy Registered Nurse Name Role Phone Chritsiano James MD Unavailable [phone] Tyler Trevizo MD Primary Care Provider [phone] Jarek Sol DPM Unavailable [phone] Allergies Active Allergy Reactions Criticality Noted Date Comments Cephalexin Stomach upset,Nausea & Vomiting Low 05/2021 Medications lisinopril-hydroCHL OROthiazide (ZESTORETIC) 20-12.5 mg per tablet [address] (PROTONIX) 40 mg EC tabletIndications:S tress Ulcer Prophylaxis Take 1 tablet (40 mg total) by mouth daily Active ondansetron ODT (ZOFRAN-ODT) 4 mg disintegrating tablet Take 1 tablet (4 mg total) by mouth every 8 (eight) hours as needed for nausea or vomiting Active magnesium oxide (MAG-OX) 400 mg (241.3 mg elemental magnesium) tablet Take 1 tablet (400 mg total) by mouth every morning 3 Active ALBUTEROL SULFATE INHALIndications:as thma Inhale 90 mcg every 4 (four) hours as needed (asthma). Indications: asthma Active Active Problems Problem Noted Date Diagnosed Date Cellulitis of right lower extremity 07/25/2023 COVID-19 virus infection 07/25/2023 Gait instability 02/21/2023 Assessment & Plan (02/21/2023 10:51 PM CDT): Patient to return home with physical and occupational therapy for strengthening With wheel chair Muscle weakness (generalized) 02/13/2023 Overview (02/13/2023): Patient do physical and occupational therapy for strengthening Assessment & Plan (02/13/2023 11:53 PM CDT): Patient do physical and occupational therapy for strengthening Non-healing wound of right lower extremity 02/13 Assessment & Plan (02/21/2023 10:46 PM CDT): S/p hospitalization. s/p I&D of right leg 01/22, - Ortho recommends broad spectrum antibiotics and ID consult Patient continuing on Bactrim until February 16. Will follow-up vascular surgeon as well as ID physician Labs have been stable with CBC you he white count and normal range Assessment & Plan (02/13/2023 11:56 PM CDT): /p hospitalization. s/p I&D of right leg 01/22, - Ortho recommends broad spectrum antibiotics and ID consult for chronic wounds; no antibiotics for acute laceration, - laceration and chronic wounds should be managed by ACCS team. Recommend removing chronic wound dressings today for evaluation but do not recommend removing the xeroform as the skin is very friable - Stitches/devika to be removed 3 weeks post -op - Hemovac d/c'd by Ortho on 01/25, - Dressing over laceration changed by Ortho on 01/25 - Weight bearing as tolerated to the right lower extremity, - Physical therapy and occupational therapy evaluated and recommend placement at [facility] for continued therapy services - Pain controlled Patient to continue Bactrim until February 16 and follow-up wound physician Appointment with surgeon on March 06 Pain of right lower extremity 02/13/2023 Assessment & Plan (02/14/2023 12:03 AM CDT): Tylenol 500 mg 3 times a day patient also on physical and occupational therapy will follow-up with orthopedics and follow-up with wound care Chronic pain due to trauma 02/02/2023 Assessment & Plan (02/02/2023 12:47 PM CDT): On Tylenol 500 mg p.o. 3 times daily, lidocaine patch 5% apply to lower back daily. Generalized weakness 02/02/2023 Assessment & Plan (02/02/2023 12:48 PM CDT): Patient will do Physical and occupational therapy for strengthening. Maintain respiratory droplet precautions per pandemic. Vital signs every shift including oxygen saturation. Open wound of right lower extremity, initial enc ounter 01/22/2023 Assessment & Plan (02/02/2023 12:50 PM CDT): S/p hospitalization. s/p I&D of right leg 01/22, - Ortho recommends broad spectrum antibiotics and ID consult for chronic wounds; no antibiotics for acute laceration, - laceration and chronic wounds should be managed by ACCS team. Recommend removing chronic wound dressings today for evaluation but do not recommend removing the xeroform as the skin is very friable - Stitches/devika to be removed 3 weeks post -op - Hemovac d/c'd by Ortho on 01/25, - Dressing over laceration changed by Ortho on 01/25 - Weight bearing as tolerated to the right lower extremity, - Physical therapy and occupational therapy evaluated and recommend placement at [facility] for continued therapy services - Pain controlled. - Follow up with Dr. Anna in the Orthopedic Surgery clinic on 03/08/23. Patient will do therapy and pain management. Patient on sulfamethoxazole/trimethoprim 800/160 mg p.o. b.i.d. till 02/16/2023. Patient will follow with wound care doctor. S/P AKA (above knee amputation), left 02/25/2022 Assessment & Plan (06/02/2022 12:56 PM CDT): Left AKA well healed. Patient using prosthetic. . Follow-up with me on p.r.n. basis Assessment & Plan (03/26/2022 11:00 AM CDT): Impression: Patient is status post left [id number] amputation for extensive soft tissue infection and wounds. Patient's amputation site is healed however had 1 staple remaining to her incision line. Patient is currently working with a ux research associate for her left [id number] prosthetic. She is currently wearing a patient support associate. Plan: Remaining stable was removed. Patient has a follow-up appointment in May for re-evaluation. Recommend patient to keep her appointment. 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 Incision is healing well. 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 The rest of the devika were removed in this office visit. Plan: pt to get measured and referred to O&P. Follow up in 3 months. Slow transit constipation 02/23/2022 Assessment & Plan (03/19/2022 1:15 PM CDT): Stable, continue scheduled MiraLax Assessment & Plan (03/11/2022 12:06 PM CDT): BM are regular Assessment & Plan (02/23/2022 8:28 PM CDT): Add miralax daily, has suppository prn Cellulitis 01/11/2022 Open wound of lower limb 12/29/2021 Assessment & Plan (06/02/2022 12:56 PM CDT): Healing continue compression therapy. Peripheral vascular disease 12/29/2021 Assessment & Plan (06/02/2022 12:56 PM CDT): Patient has no clinically significant arterial disease wound healing potential good. Continue compression therapy. No further workup from my standpoint. Assessment & Plan (03/19/2022 1:15 PM CDT): Patient will need follow-up with vascular surgery. Continue blood pressure control. s/p revision of right total knee arthroplasty with poly exchange on 11/12/2021 12/07/2021 Assessment & Plan (01/23/2022 11:40 PM PROGRAM AIDE): Pt has hx of revision of R TKA per Dr. Anton on 11/12/21. Currently no acute infection joint. F/u ortho OP Bradycardia 09/10/2021 Assessment & Plan (03/09/2022 9:28 PM CDT): Much improved with metoprolol on hold. Assessment & Plan (03/02/2022 11:52 AM CDT): Heart rate now lower - will hold metoprolol for now, monitor s/p right total knee arthrop lasty on 03/07/[address] Holden at [facility] 08/24/2021 Overview (08/24/2021): Eddy Current Inspector not specified in operative note; prosthetic sizes are as follows: Patellar - 31 round Femoral - 62.5 Tibial - 67 Presence of left artificial knee joint Overview (07/02/2021): Added automatically from request for surgery [id number] s/p right total hip arthroplasty on 11/29/2018 0 12/22/2020 Chronic right-sided low back pain with right-dae ed sciatica 12/22/2020 Left shoulder pain 12/22/2020 Rotator cuff impingement syndrome of right shoul andrew 12/22/2020 Rotator cuff impingement syndrome of left should er 07/04/2020 Trochanteric bursitis of both hips 06/09/2020 Bursitis of foot 03/11/2020 Foot pain 03/11/2020 APC (adenomatous polyposis coli) 10/05/2019 Enthesopathy of hip region 10/04/2019 Trochanteric bursitis of right hip 10/04/2019 Normocytic normochromic anemia 06/29/2019 Assessment & Plan (03/02/2022 11:53 AM CDT): H/H stable, continue iron supplement Assessment & Plan (02/09/2022 8:12 PM CDT): Hemoglobin 7.7. Ordered iron b.i.d.. Patient refused. Monitor H/H 01/27: H/H stable, continue to monitor 02/02: H/H lower but stable, continue to monitor 02/09: H/H stable/improving, continue to monitor Left knee pain 05/28/2019 History of total knee arthroplasty, bilateral in 201305/28/2019 Myalgia 02/22/2019 s/p left total hip arthroplasty on 03/27/2019 Assessment & Plan (02/22/2019 11:24 AM CDT): Patient is recovering well from her total hip arthroplasty. She still has some weakness issues in terms of her hip abduction strength. I do not want her to give up in assistive devices until she gets that stronger. We again reviewed some balancing exercises as well as some hip abduction strengthening exercises. I do not think she has been ruled diligent lately after her therapy is stop. Also would like her to start doing those on the left. She is scheduled for a left total hip arthroplasty here soon Acute postoperative pain 10/23/2018 Primary osteoarthritis of left hip 08/18/2018 Assessment & Plan (02/22/2019 11:25 AM CDT): The patient states the left hip is giving her much more difficulty than the right at this time. As she feels is recovering well from the right like to consider proceeding with a left total hip arthroplasty. After the risk and benefits and alternatives have been discussed the patient is electing for surgery. We discussed the procedure of total knee arthroplasty in detail as well of total hip arthroplasty. The risks to include infection, neurovascular injury, deep vein thrombosis and pulmonary embolus were discussed. We talked about the time frame need to obtain a functional result of the significant effort required from the patient through therapeutic exercises to achieve a functional result. The possibility of future surgeries for such complications as bleeding, infection or stiffness. Based on the multiple factors involved there can be no guarantee for an excellent outcome. Patient understands the situation well and is willing to proceed with a left total hip arthroplasty History of bilateral knee arthroplasty 8 Chronic left-sided low back pain with left-sided sciatica 11/11/2017 Assessment & Plan (02/22/2019 11:26 AM CDT): Patient received a injection for the left low back pain and sciatica. See procedure note Lumbar radiculopathy 10/04/2017 SOB (shortness of breath) 08/04/2017 Generalized anxiety disorder 08/23/2016 Assessment & Plan (02/21/2023 10:48 PM CDT): Patient started on trazodone 25 mg q.12 hours p.r.n. and trazodone 25 mg twice daily Discussed with patient need time to work to get physical and occupational therapy to help at home Patient to continue BuSpar q.day psych consult Assessment & Plan (02/14/2023 12:05 AM CDT): Patient started on trazodone 25 mg q.12 hours p.r.n. and trazodone 25 mg twice daily Discussed with patient need time to work to get physical and occupational therapy to help at home Patient to continue BuSpar q.day psych consult Primary hypertension 08/23/2016 Assessment & Plan (02/14/2023 12:06 AM CDT): Lisinopril hydrochlorothiazide Basic metabolic panel Assessment & Plan (02/02/2023 12:49 PM CDT): Blood pressure is. Patient will continue with lisinopril/hydrochlorothiazide 20/12.5 mg p.o. daily. Patient will do CBC with diff BMP with next lab if not done already. Assessment & Plan (06/02/2022 12:55 PM CDT): Hypertension chronic and controlled. Continue current medical therapy. Assessment & Plan (03/19/2022 1:14 PM CDT): Blood pressure controlled, continue lisinopril Assessment & Plan (03/16/2022 3:00 PM CDT): Blood pressure variable but generally controlled, continue lisinopril 10 mg daily. Remains off beta-blank due to bradycardia Assessment & Plan (03/11/2022 12:05 PM CDT): BP improved after increasing lisinopril to 10 mg. Will monitor if still elevated may consider increasing lisinopril Assessment & Plan (03/09/2022 9:28 PM CDT): BP now higher since metoprolol stopped. Will increase lisinopril to 10mg daily Assessment & Plan (03/02/2022 11:51 AM CDT): Blood pressure stable, continue to monitor has metoprolol being placed on hold. Could titrate lisinopril if needed Assessment & Plan (02/25/2022 12:39 PM CDT): Pt BP is stable. Plan: Continue taking BP medications as per PCP. Assessment & Plan (02/23/2022 8:29 PM CDT): BP controlled, continue lisinopril, lopressor Assessment & Plan (02/16/2022 8:19 PM CDT): BP better controlled. Continue Lisinopril 5mg daily, Lopressor 12.5 mg BID. Assessment & Plan (02/09/2022 8:14 PM CDT): Blood pressure controlled. Patient home med clonidine, hydrochlorothiazide/lisinopril discontinued and started on metoprolol 12.5 mg b.i.d.. Monitor blood pressure, adjust meds accordingly 01/27: BP stable, continue only lopressor 12.5mg BID 02/02: BP elevated, will restart lisinopril 5mg daily. Continue Lopressor 12.5mg bid - unable to titrate 2/2 lower HR 02/09: BP now much better controlled, HR remains in low 60's. Continue lisinopril 5mg daily, Lopressor 12.5mg BID Lipids abnormal 08/23/2016 Obesity 08/23/2016 Bilateral lower leg cellulitis Assessment & Plan (02/09/2022 8:16 PM CDT): Patient presented in ER due to worsening lower leg chronic wounds with sepsis. BCx no growth. Wound cultures positive for E coli, Proteus mirabilis and mixed organisms. Started on Rocephin, vancomycin. Patient had stage IV necrotic ulcer left calf, underwent left AKA on 01/19/22. For right lower extremity multiple superficial varicose vein ulcers with the eschar formation per ID Rocephin discontinued as no signs of acute infection, started on Ceftin and doxycycline x7 days. but no evidence of any acute infection. Continue wound care. Monitor labs. 01/27: Continue wound care katheryn. Completing antibiotics - remains afebrile, WBC WNL. Therapies are in place. 02/02: wounds stable, continue dressing changes. Antibiotics completed. Continue therapy. 02/09: wounds improving, appreciate wound care following. Continue current dressings. Therapies in place, making progress. Pain controlled. 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 Pt will need the set up of a wheelchair due to inability to ambulate 2/2 L BKA. Having access to a wheelchair will improve her ability to participate in ADLS. She has demonstrated ability to self-maneuver the wheelchair. She reports her home is big enough to maneuver the wheelchair. Having access to to fitted cane or walker would not be sufficient. She will require a wheelchair with amputation support on the left Assessment & Plan (03/16/2022 2:59 PM CDT): Patient continues to make progress with strength in her upper extremities, able to self propel wheelchair independently. Pain is controlled. Anticipate discharge 03/20/2022 Assessment & Plan (03/12/2022 11:29 AM CDT): Incision healed, now s/p first visit for prosthesis fitting by P & [facility]. Pt will need the set up of a wheelchair due to inability to ambulate 2/2 L BKA. Having access to a wheelchair will improve her ability to participate in ADLS. She has demonstrated ability to self-maneuver the wheelchair. She reports her home is big enough to maneuver the wheelchair. Having access to to fitted cane or walker would not be sufficient. She will require a wheelchair with amputation support on the left. Assessment & Plan (03/11/2022 12:08 PM CDT): Has Vas f/u on 05/26/22 Assessment & Plan (03/09/2022 9:24 PM CDT): Referral to [facility] made again - rep to come tomorrow to start prothesis fitting. Pt doing very well with WC mobility. Pain controlled. Assessment & Plan (03/02/2022 11:55 AM CDT): Incision healed, participating in therapy, making progress. Pain controlled. Had f/u with vascular 02/24 - all devika removed. Referred to O&P to start prosthesis process. F/U with vascular in 3 months Assessment & Plan (02/23/2022 8:31 PM CDT): Incision continues to heal, f/u appt with Dr Castano 02/24 @ 1300. Devika removed by staffing operations manager - steri-strips in place Assessment & Plan (02/16/2022 8:16 PM CDT): S/p Left AKA 01/[address] Castano. Incision is healing, continue current dressing changes. Pt is slowly progressing in therapy - working on pivot transfers now. Has new skin tear to posterior left thigh- monitor, continue current protective dressing. Will need f/u with vascular after DC. No DC plans yet Assessment & Plan (02/09/2022 8:12 PM CDT): underwent left AKA by Dr. Castano on 01/19/2022. Continue wound care. PT/OT eval. Follow-up vascular outpatient 01/27: continue wound care, elevation. Therapies are in place, we will monitor progress. Pain is controlled at present. 02/02: stable, improving. Continue therapy, pain controlled. 02/09: wound stable, pt improving in therapy with transfers. Pain is controlled. Hyponatremia Assessment & Plan (03/16/2022 2:59 PM CDT): Sodium has been dropping, last was 134. Follow-up labs in a.m. Gastroesophageal reflux disease without esophagi tis Assessment & Plan (03/19/2022 1:15 PM CDT): Stable, who continue Nexium Leukocytosis Gait instability Chronic cutaneous venous stasis ulcer Resolved Problems Problem Noted Date Diagnosed Date Resolved Date Hemoptysis 01/27/2022 02/09/2022 Assessment & Plan (02/02/2022 9:59 PM CDT): One brief episode - no further this am. No chest pain, fever. Pt is on lovenox and had a strong cough. No findings on exam. Will check cxr 02/02: CXR unrevealing, no further hemoptysis Acute renal failure 01/28/20 Assessment & Plan (01/23/2022 11:35 PM PROGRAM AIDE): Creatinine 1.20 (baseline 0.6) GFR 50 on 01/11/2022. Treated with IV fluids initially and subsequently discontinued as creatinine improved to 0.4. Avoid nephrotoxic drugs. Monitor labs Immunizations Immunization Administration Dates Next Due Influenza, Quadrivalent, Hig h Dose, Preservative Free, Intrr 08/24/2021 Influenza, Quadrivalent, Spl it, Intramuscular 07/30/2019,08/18/2018,09/10/2017,07/30 Influenza, Quadrivalent, Spl it, Preservative Free, Intramuscular 08/16/2020,07/30/2015 Influenza, Unspecified 08/14/2021,10/04/2014 Pneumococcal Polysaccharide PPV23 07/01/2020,03/2018 Tdap 01/22/2023,12/06/2014 Social History Tobacco Use Types Packs/Day Years Used Date Smoking Tobacco: Never Tobacco Cessation:Counseling Given: Not Answered Alcohol Use Standard Drinks/Week Comments Not Currently 0 (1 standard drink = 0.6 oz pur e alcohol) OASIS D0700: Social Isolation Answer Da te Recorded Frequency of experiencing loneliness or isolatio n Never 09/06/2023 OASIS A1250: Transportation Answer Date Recorded Lack of Transportation (Medical) No 09/06/2023 Lack of Transportation (Non-Medical) No 09/06/2023 Patient Unable or Declines to Respond No 09/06/2023 OASIS B1300: Health Literacy Answer Hiram e Recorded Frequency of needing help to read materials from doctor or pharmacy Never 09/06/2023 Social Connection and Isolat ion Panel [NHANES] Answer Date Recorded In a typical week, how many times do you talk on the phone with family, friends, or neighbors? More than three times a week 07/26/2023 How often do you get togethe r with friends or relatives? More than three times a week 07/26/2023 How often do you attend chur ch or presybeterian services? 1 to 4 times per year 07/26/2023 Do you belong to any clubs o r organizations such as anglican groups, unions, fraternal or athletic groups, or school groups? No 07/26/2023 How often do you attend meet ings of the clubs or organizations you belong to? Never 07/26/2023 Are you , , di vorced, , never , or living with a partner? 07/26/2023 AUDIT-C Answer Date Recorded Frequency of Alcohol Consumption Not on file 01/22/2023 Average Number of Drinks Not on file 023 Q3: How often do you have si x or more drinks on one occasion? Never 01/22/2023 Overall Financial Resource Strain (CARDIA) Answe r Date Recorded How hard is it for you to pa y for the very basics like food, housing, medical care, and heating? Not very hard 07/26/2023 Hunger Vital Sign Answer Date Recorded Within the past 12 months, y ou worried that your food would run out before you got the money to buy more. Never true 07/26/20 23 Within the past 12 months, t he food you bought just didn't last and you didn't have money to get more. Never true 07/26/2023 PRAPARE - Transportation Answer Date Re corded In the past 12 months, has l ack of transportation kept you from medical appointments or from getting medications? No 07/15 In the past 12 months, has l ack of transportation kept you from meetings, work, or from getting things needed for daily living? No 07/26/2023 Housing Stability Vital Sign Answer Hiram e Recorded In the last 12 months, was t here a time when you were not able to pay the mortgage or rent on time? No 07/26/2023 In the last 12 months, how many places have you lived? 1 07/26/2023 In the last 12 months, was t here a time when you did not have a steady place to sleep or slept in a halfway (including now)? No 07/26/2023 Personal Safety Answer Date Recorded Have you ever been in or are you currently in a harmful physical or emotional relationship or is someone making you feel afraid or unsafe? Denies 07/25/2023 Comments No Sex and Gender Information Value Date Recorded Sex Assigned at Not on file Legal Sex Female 11:55 AM PROGRAM AIDE Gender Identity Not on file Sexual Orientation Not on file Last Filed Vital Signs Vital Sign Reading Time Taken Comments Blood Pressure 114/70 09/06/2023 3:15 PM CDT Pulse 74 09/06/2023 3:15 PM CDT Temperature 36.7 C (98 F) 09/06/2023 3:15 PM CDT Respiratory Rate 18 09/06/2023 3:15 PM CDT Oxygen Saturation 94% 09/06/2023 3:15 PM CDT Inhaled Oxygen Concentration - - Weight 52.2 kg (115 lb) 07/25/2023 7:00 PM CDT Height 157.5 cm (5' 2) 08/02/2023 10:57 AM CDT Body Mass Index 21.03 07/25/2023 7:00 PM CDT Plan of Treatment Not on file Medical Devices Implanted Type Area Eddy Current Inspector Device Identifier Shelf Expiration Date Model / Serial / Lot Arthroplasty Bilatera l: Hip Arthroplasty Bilatera l: Knee [employer] [id number] Vanguard [id number] Anterior Stabilize Inlay Knee 0d Bearing - [id number] Implanted:Qty: 1 on 11/12/2021 by Craig Anton MD at [facility] [employer] [id number] 06/03/2023 [id number] / / [id number] [employer] [id number] Biomet Ascent Maxim Primary Lock Bar Knee Component Tibial Tray - [id number] Implanted:Qty: 1 on 11/12/2021 by Craig Anton MD at [facility] [employer] [id number] 10/20/2031 [id number] / / [id number] Procedures Procedure Name Priority Date/Time Associated Diagnosis Comments HEPATITIS PANEL, ACUTE Routine 04/25/2019 7:40 AM CDT from Last 3 Months or Most Recently Relevant to Health Maintenance Results * Hepatitis panel, acute (04/25/2019 7:40 AM CDT) HepBsAg NONREACT NONREACTIVE [facility] Comment: Siemens CentaurXP using JETHRO (chemiluminescent immunoassay) technology. NONREACTIVE: IgM antibodies to Hepatitis B Surface antigen not detected. REACTIVE: IgM antibodies to Hepatitis B Surface antigen detected. Reactive results will be confirmed by neutralization testing. HBsAb qn 3.43 mIU/mL [facility] Comment: Siemens CentaurXP using JETHRO (chemiluminescent immunoassay) technology. 9.99 IU/L or less.....NONREACTIVE: IgM antibodies to Hepatitis B Surface antibody are not detected. 10.00 IU/L or greater..REACTIVE: IgM antibodies to Hepatitis B Surface antibody are detected. Hep B core IgM NONREACT NONREACTIVE [facility] Comment: Siemens CentaurXP using JETHRO (chemiluminescent immunoassay) technology. NONREACTIVE: IgM antibodies to Hepatitis B Core antigen not detected. EQUIVOCAL: IgM antibodies to Hepatitis B Core antigen may or may not be present. Obtain a new specimen and retest. REACTIVE: IgM antibodies to Hepatitis B Core antigen detected. Hep A IgM NONREACT NONREACTIVE [facility] Comment: Siemens CentaurXP using JETHRO (chemiluminescent immunoassay) technology. NONREACTIVE: IgM antibodies to Hepatitis A not detected. This does not exclude possibility of exposure to Hepatitis A or early acute infection. EQUIVOCAL:IgM antibodies to Hepatitis A may or may not be present. Suggest recollection and retest. REACTIVE: Antibodies to Hepatitis A detected. Hep C Ab NONREACT NONREACTIVE [facility] Comment: Siemens CentaurXP using JETHRO (chemiluminescent immunoassay) technology. NONREACTIVE: Antibodies to Hepatitis C not detected. This does not exclude early acute Hepatitis C infection, possibility of exposure to Hepatitis C, antibodies below detection limit, or to lack of antibody reactivity to the antigen used in this assay. EQUIVOCAL: Antibodies to Hepatitis C may or may not be present. Sample to be confirmed by real-time PCR method. REACTIVE: Antibodies to Hepatitis C detected.Sample to be confirmed by real-time PCR method. 04/25/2019 7:40 AM CDT 04/25/2019 7:46 AM CDT Narrative Resulting Agency Comment IN [facility] MICRO[facility] - GENERAL O RDERABLES Final Result [address] [place], [place] [address] [phone] from Last 3 Months or Most Recently Relevant to Health Maintenance Insurance IDPR MEDICARE [facility] Address: [address] [address] [place] [address] [facility] IDPA MEDICARE [facility] Address: [id number] [place] [address] [facility] IDPA MEDICARE MEDICARE [facility] Advance Directives For more information, please contact: [phone] Documents on File Type Date Recorded Patient Environmental Web Crawler Expl anation ADVANCE DIRECTIVE 01/25/2022 10:09 AM POLS T - Phys Order for PT Preferences ADVANCE DIRECTIVE 08/14/2021 11:11 AM Aaliyah brown of Petroleum Geologist-Medical * Full Code (Latest Code Status on File) Date Activated Date Inactivated Comments 07/25/2023 6:50 PM 07/30/2023 7:32 PM * Full Code Date Activated Date Inactivated Comments 07/25/2023 6:50 PM 07/25/2023 6:50 PM * Full Code Date Activated Date Inactivated Comments 07/25/2023 6:00 PM 07/25/2023 6:50 PM * Full Code Date Activated Date Inactivated Comments 01/22/2023 3:40 PM 01/28/2023 5:58 PM * Full Code Date Activated Date Inactivated Comments 01/22/2022 6:37 PM 02/12/2022 3:44 PM Care Teams Endoscopy Registered Nurse Relationship Specialty Start Date End Date Tyler Trevizo MD [address] [address] PCP - General Emergency Medicine 02/08/20 Christiano James MD [address] [address] Underwriting Assistant Cardiology 02/22/19 Jarek Sol DPM [address] [place] [address] Podiatry 02/14/23
--- OUTSIDE RECORDS SUMMARY | 2025-04-04 12:29 | XMS_ITS | Clinical Summary ---
Author Organization [facility] Address [address] [place] [address] Care Team Providers Care Correctional Officer Lieutenant Name Role Phone Unavailable Primary Care Provider Unavailabl e Source Comments [facility],non-owned Affiliates and Associated Physician Practices is amultiple site organization consisting of ambulatory clinics and hospital sitesin [place], [place], [place] and [place]. This disclosure is being madepursuant to the Care Everywhere program and may not contain all information available regarding this patient. Last updated 18.[facility] [employer] Social History Tobacco Use Types Packs/Day Years Used Date Smoking Tobacco: Never Assessed Comments Unknown Sex and Gender Information Value Date Recorded Sex Assigned at Not on file Legal Sex Female 8:44 AM CDT Gender Identity Not on file Sexual Orientation Not on file Plan of Treatment Health Maintenance Due Date Last Done Comments BONE DENSITY TESTING 1955 COLOGUARD (AGES 45-75) - COL ON CA SCREENING 1955 COLON MONITORING 1955 COLONOSCOPY - COLON CA SCREENING 1954 CT COLONOGRAPHY - COLON CA SCREENING 1955 Colorectal Cancer Screening 1955 FIT - COLON CA SCREENING 1955 FLEX SIG - COLON CA SCREENING 1954 LIPID TESTING 1955 MAMMOGRAM 1955 MEDICARE AWV 12 MONTHS 1954 HEPATITIS C SCREENING 10/14/1972 DTAP/TDAP/TD VACCINES (1 - Tdap) 1973 PNEUMOCOCCAL VACCINE 50+ (1 of 1 - PCV) 2004 ZOSTER VACCINE (1 of 2) 2004 COVID-19 VACCINE (2023-2 5 season) 2024 DEPRESSION SCREENING 11/14/2024 INFLUENZA VACCINE (Season Ended) 2025 Respiratory Syncytial Virus (RSV) Vaccine Pt: or over 60 yrs (1 - 1-dose 75+ series) 2029 HEPATITIS B VACCINE Aged Out No longe r eligible based on patient's age to complete this topic HIB VACCINE Aged Out No longer eligi ble based on patient's age to complete this topic HPV VACCINE Aged Out No longer eligi ble based on patient's age to complete this topic MENINGOCOCCAL (Group B) VACC INE SHARED DECISION-MAKING Aged Out No longer eligibl e based on patient's age to complete this topic MENINGOCOCCAL GROUPS A/C/Y/W VACCINE Aged Out No longer eligible b ased on patient's age to complete this topic Insurance MEDICARE MEDICAID - OUT OF STATE [facility] MEDICARE MEDICARE MEDICARE
--- OUTSIDE RECORDS SUMMARY | 2025-04-04 12:29 | XMS_ITS | Clinical Summary ---
Author Organization [facility] Home Care [facility] Address [address] [place] [address] Phone Care Team Providers Care Wire Inserter Name Role Phone Christiano James MD Unavailable [phone] Tyler Trevizo MD Primary Care Provider [phone] Jarek Sol DPM Unavailable Allergies Active Allergy Reactions Criticality Noted Date [...] occupational therapy evaluated and recommend placement at group home facility for continued therapy services - Pain [...] occupational therapy evaluated and recommend placement at group home facility for continued therapy services - Pain [...] CDT): Impression: Patient is status post left skoxa-ybm-wgai amputation for extensive soft tissue infection and wounds. Patient's amputation site is healed however had 1 staple remaining to her incision line. Patient is currently working with a steel plate printer for her left ixdby-hjb-fqez prosthetic. She is currently wearing a refrigeration supervisor. Plan: Remaining stable was removed. Patient has a follow-up appointment in May for re-evaluation. Recommend patient to keep her appointment. 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 Incision is healing well. Half of the devika were removed PAYMENT SPECIALIST. 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 Devika removed by staff accountant - steri-strips in place Assessment & Plan [...] 01/28/20 Assessment & Plan (01/23/2022 11:35 PM RN RENAL): Creatinine 1.20 (baseline 0.6) GFR 50 on [...] 08/14/2021,10/04/2014 Pneumococcal Polysaccharide PPV23 07/01/2020,03/2018 Tdap 01/22/2023,12/06/2014 Surgical History Surgery Date Site/Laterality Comments INCISION AND DRAINAGE HIP 04/25/2019 Left KNEE ARTHROPLASTY 09/06/2014 Left KNEE ARTHROPLASTY 03/07/[address] Mehdi Holden, [facility] TOTAL HIP ARTHROPLASTY 11/29/2018 Right TOTAL HIP ARTHROPLASTY 03/27/2019 Left FOOT SURGERY 11/14/2017 - 11/13/2018 Left plantar fasciitis SPINAL FUSION hardware TUBAL LIGATION COLONOSCOPY ESOPHAGOGASTRODUODENOSCOPY JOINT REPLACEMENT 11/12/21 RTK revision ABOVE KNEE LEG AMPUTATION 01/19/2022 Left Medical History Medical History Date Comments HTN (hypertension) Obesity Elevated lipids Primary osteoarthritis of right hip Anterolisthesis Dizziness prn meclizine HL (hearing loss) Fracture of wrist left/in splint Heart murmur Cellulitis redness/swelling to BLE. Teeth missing pt has no teeth/ no dentures RLS (restless legs syndrome) tiki es Ropinirole Asthma inhalers Wears glasses Wound of left leg scabbed over a nd healing well. using topical creams and has seen wound mngt Walker as ambulation aid Anxiety GERD (gastroesophageal reflux disease) controlled with meds s/p right total knee arthrop lasty on 03/07/[address] Holden at [facility] 08/24/2021 Boiler Shop Mechanic not specified i n operative note; prosthetic sizes are as follows: Patellar - 31 round Femoral - 62.5 Tibial - 67 Poor historian Anemia HUNTER s/p revision of right total knee arthroplasty with poly exchange on 11/12/2021 12/07/2021 Family History Relation Name Status Comments Father Mother Social History Tobacco Use Types Packs/Day Years [...] 07/26/2023 How often do you attend chur or sabianism services? 1 to 4 times per year 07/26/2023 Do you belong to any clubs o r organizations such as congregational groups, unions, fraternal or athletic groups, or [...] place to sleep or slept in a long-term (including now)? No 07/26/2023 Personal Safety Answer Date Recorded Have you ever been in or are you currently in a harmful physical or emotional relationship or is someone making you feel afraid or unsafe? Denies 07/25/2023 Comments No Sex and Gender Information Value Date Recorded Sex Assigned at Not on file Legal Sex Female 11:55 AM RN RENAL Gender Identity Not on file Sexual Orientation Not on file Obstetrics History Last Filed Vital Signs Vital Sign Reading [...] 07/25/2023 7:00 PM CDT Plan of Treatment Health Maintenance Due Date Last Done Comments Breast Cancer Screening-Mammogram 1954 Colon Cancer Screening-Colonoscopy 1954 Depression Screening 1954 Osteoporosis Screening-Bone Density Scan 1954 Hepatitis B Screening 1972 Zoster Vaccine (1 of 2) 2004 Well Visit 65+ 2019 Pneumococcal vaccine 65+ (2 of 2 - PCV) 07/01/2021 07/01/2020, 08/18/2018 Covid-19 Vaccine (4 - 2023-2 5 season) 2024 09/30/2021, 01/05/2021, 12/04/2020 Fall Risk Assessment 07/29/2024 07/29/2023 Influenza Vaccine (Season Ended) 2025 08/24/2021, 08/14/2021, 08/16/2020, Additional history exists DTaP/Tdap/Td Vaccine (3 - Td or Tdap) 01/22/2033 01/22/2023, 12/06/2014 Hepatitis C Screening Completed 04/25/2019 Medical Devices Implanted Type Area Boiler Shop Mechanic Device Identifier Shelf Expiration Date Model / Serial / Lot Arthroplasty Bilatera l: Hip Arthroplasty Bilatera l: Knee [employer] [id number] Vanguard [id number] Anterior Stabilize Inlay Knee 0d Bearing - [id number] Implanted:Qty: 1 on 11/12/2021 by Craig Anton MD at [facility] [employer] [id number] 06/03/2023 [id number] / / [id number] [employer] [id number] Biomet Ascent Maxim Primary Lock Bar Knee Component Tibial Tray - [id number] Implanted:Qty: 1 on 11/12/2021 by Craig Anton MD at [facility] [employer] [id number] 10/20/2031 [id number] / / [id number] Procedures Procedure Name Priority Date/Time Associated Diagnosis Comments HEPATITIS PANEL, ACUTE Routine 04/25/2019 7:40 AM CDT from Last 3 Months or Most Recently Relevant to Health Maintenance Results * Hepatitis panel, acute (04/25/2019 7:40 AM CDT) HepBsAg NONREACT NONREACTIVE [facility] Comment: Siemens CentaurXP using JETHRO (chemiluminescent immunoassay) technology. NONREACTIVE: IgM antibodies to Hepatitis B Surface antigen not detected. REACTIVE: IgM antibodies to Hepatitis B Surface antigen detected. Reactive results will be confirmed by neutralization testing. HBsAb qn 3.43 mIU/mL [facility] Comment: Siemens CentaurXP using JETHRO (chemiluminescent immunoassay) technology. 9.99 IU/L or less.....NONREACTIVE: IgM antibodies to Hepatitis B Surface antibody are not detected. 10.00 IU/L or greater..REACTIVE: IgM antibodies to Hepatitis B Surface antibody are detected. Hep B core IgM NONREACT NONREACTIVE [facility] Comment: Siemens CentaurXP using JETHRO (chemiluminescent immunoassay) technology. NONREACTIVE: IgM antibodies to Hepatitis B Core antigen not detected. EQUIVOCAL: IgM antibodies to Hepatitis B Core antigen may or may not be present. Obtain a new specimen and retest. REACTIVE: IgM antibodies to Hepatitis B Core antigen detected. Hep A IgM NONREACT NONREACTIVE [facility] Comment: Siemens CentaurXP using JETHRO (chemiluminescent immunoassay) technology. NONREACTIVE: IgM antibodies to Hepatitis A not detected. This does not exclude possibility of exposure to Hepatitis A or early acute infection. EQUIVOCAL:IgM antibodies to Hepatitis A may or may not be present. Suggest recollection and retest. REACTIVE: Antibodies to Hepatitis A detected. Hep C Ab NONREACT NONREACTIVE [facility] Comment: Siemens CentaurXP using JETHRO (chemiluminescent immunoassay) [...] AM CDT Narrative Resulting Agency Comment IN us [facility] MICRO[facility] - GENERAL O RDERABLES Final Result [facility] [address] [place] [address], [facility] [phone] from Last 3 Months or Most Recently Relevant to Health Maintenance Insurance IDPA MEDICARE [facility] Address: [address] [address] [place] [address] [facility] [place] [address] MEDICARE [facility] Address: [facility] [address] [place] [address] [facility] MEDICARE MEDICARE [facility] Advance Directives For more information, please contact: [phone] Documents on File Type Date Recorded Patient Architectural Associate Expl anation ADVANCE DIRECTIVE 01/25/2022 10:09 AM POLS T - Phys Order for PT Preferences ADVANCE DIRECTIVE 08/14/2021 11:11 AM Aaliyah r of Oil And Gas Specialist-Medical * Full Code (Latest Code Status on [...] 6:37 PM 02/12/2022 3:44 PM Care Teams Wire Inserter Relationship Specialty Start Date End Date Tyler Trevizo MD [address] [address] PCP - General Emergency Medicine 02/08/20 Christiano James MD [address] [address] Veneer Press Operator Cardiology 02/22/19 Jarek Sol DPM [address] [place] [address] Podiatry 02/14/23
--- OUTSIDE RECORDS SUMMARY | 2025-04-04 12:29 | XMS_ITS ---
Author Organization [facility] Care Team Providers Care Academic Affairs Manager Name Role Phone Scott Chamberlain Unavailable Unavailab Adams Howard Unavailable Unavailable Allergies and adverse reactions Code CodeSystem Substance Reaction Severity StartDate Concern Status Keflex Unknown 01/28/2023 active Care Team Name Role Address Phone Organization Dates Scott Chamberlain PCP [address] [facility], [place], [address], [place] States (Office): : [facility] 01/28/2023 - 02/13/2023 Adams Hathaway [place]Office[place] [facility] 01/28/2023 - 02/13/2023 Mental Status Section Date Assessment Total Score Description 02/13/2023 CAM 5 Delirium indica ernst 02/12/2023 BIMS 14 cognitively int act CAM 4 Delirium indica ernst PHQ-9 07 mild depression Problems Problem # Description Date of onset Resolved Date Code CodeSystem Concern Status 1 LACERATION WITHOUT FOREIGN BODY, RIGHT KNEE, SUBSEQUENT ENCOUNTER 01/28/[address] active 2 MUSCLE WASTING AND ATROPHY, NOT ELSEWHERE CLASSIFIED, LEFT SHOULDER 01/28/[address] active 3 MUSCLE WASTING AND ATROPHY, NOT ELSEWHERE CLASSIFIED, LEFT THIGH 01/28/[address] active 4 MUSCLE WASTING AND ATROPHY, NOT ELSEWHERE CLASSIFIED, RIGHT ANKLE AND FOOT 01/28/[address] active 5 MUSCLE WASTING AND ATROPHY, NOT ELSEWHERE CLASSIFIED, RIGHT LOWER LEG 01/28/[address] active 6 MUSCLE WASTING AND ATROPHY, NOT ELSEWHERE CLASSIFIED, RIGHT SHOULDER 01/28/[address] active 7 MUSCLE WASTING AND ATROPHY, NOT ELSEWHERE CLASSIFIED, RIGHT THIGH 01/28/[address] active 8 UNSPECIFIED FALL, SUBSEQUENT ENCOUNTER 01/28/[address] active 9 UNSPECIFIED MOOD [AFFECTIVE] DISORDER 01/28/[address] active 10 UNSPECIFIED OPEN WOUND, RIGHT LOWER LEG, SUBSEQUENT ENCOUNTER 01/28/[address] active 11 UNSTEADINESS ON FEET 01/28/[address] active Reason for Referral No Reasons for Referral Entered Social History Social History Observation Description Start Date End Date Code Code System Current Smoking Status Tobacco smoking consumption unknown 088154767 SNOMED CT Sex Assigned At Female 1955 [address]-5 [facility] Gender Identity Female 08835022061425 [address] Vital Signs Code Code System Vitals Name Values and Units Timing Information 85155-0 [facility] Pain Level Value=0.0 02/13/2023 9279-1 [facility] Respiratory Rate Value=18.0 Units=/m in 02/12/2023 8462-4 [facility] Blood Pressure-Diastolic Value=70 Un its=mmHg 02/12/2023 8480-6 [facility] Blood Pressure-Systolic Btbav=005 Un its=mmHg 02/12/2023 8310-5 [facility] Body Temperature Value=98.1 Units= F 02/12/2023 8867-4 [facility] Heart rate Value=84.0 Units=/min 11/2022 26483-1 [facility] O2 % BldC Oximetry Value=95.0 Units= % 02/12/2023 97944-6 [facility] Weight Ivjgy=941.8 Units=Lbs 11/2022 8302-2 [facility] Height Value=62.0 Units=Inches 01/29/2023
--- OUTSIDE RECORDS SUMMARY | 2025-04-04 12:29 | XMS_ITS | Encounter Summary ---
Author Organization [facility] Care Team Providers Care Medication Specialist Name Role Phone No, Physician Primary Care Provider [phone] Tyler Trevizo MD Primary Care Provider [phone] Christiano James MD Unavailable [phone] Tyler Trevizo MD Primary Care Provider [phone] Ailyn, Physician Primary Care Provider [phone] Tyler Trevizo MD Primary Care Provider [phone] Jarek Sol DPM Unavailable [phone] Encounter Details Date Type Department Care Team (Latest Contact Info) Description 02/11/2015 Orders Only [facility] ProviderLilly MD [address] [place] [address] Social History Tobacco Use Types Packs/Day Years Used Date Smoking Tobacco: Never Assessed Comments Unknown Sex and Gender Information Value Date Recorded Sex Assigned at Not on file Legal Sex Female 11:55 AM METAL SPRAY OPERATOR Gender Identity Not on file Sexual Orientation Not on file documented as of this encounter Plan of Treatment Not on file documented as of this encounter Procedures Procedure Name Priority Date/Time Associated Diagnosis Comments CARDIOLOGY REPORT 01/14/2017 12: 00 AM METAL SPRAY OPERATOR CARDIOLOGY REPORT 01/14/2017 12: 00 AM METAL SPRAY OPERATOR documented in this encounter Results * CARDIOLOGY REPORT (01/14/2017 12:00 AM METAL SPRAY OPERATOR) Anatomical Region Laterality Modality Other Narrative 01/14/2017 12:00 AM METAL SPRAY OPERATOR Ordered by an unspecified provider. us Historical Provider [facility] CARDIAC SERVICES PROCE DURES Final Result * CARDIOLOGY REPORT (01/14/2017 12:00 AM METAL SPRAY OPERATOR) Anatomical Region Laterality Modality Other Narrative 01/14/2017 12:00 AM METAL SPRAY OPERATOR Ordered by an unspecified provider. us Historical Provider CV CARDIAC SERVICES PROCE DURES Final Result documented in this encounter Visit Diagnoses Not on filedocumented in this encounter Additional Health Concerns Infection Onset Date Last Indicated Resolved Time COVID: Suspected 07/25/2023 07/25/2023 07/25/2023 3:34 PM CDT COVID19 Comment:Airborne + Contact precautions. Gown, Gloves, N95, eye protection or goggles. Precautions 08/05/23. Contact Tool Setter if patient worsens. LISA Denny 08/02/23 07/25/2023 07/25/2023 08/05/2023 3:06 AM C DT MRSA Comment:Contact Precautions (gown and gloves) LISA Denny 08/02/23 07/26/2023 07/26/2023 01/22/2024 3:05 AM C DT COVID: Recovered Comment:Added based on recent COVID infection. 08/05/2023 08/05/2023 11/03/2023 3:[address] documented as of this encounter Care Teams Medication Specialist Relationship Specialty Start Date End Date No, Physician PCP - General 12/01/18 01/10/19 Tyler Trevizo MD [address] [address] PCP - General Emergency Medicine 02/22/19 08/27/19 Tyler Trevizo MD [address] [address] PCP - General 01/11/19 02/21/19 No Physician PCP - General 01/02/20 02/07/20 Tyler Trevizo MD [address] [address] PCP - General Emergency Medicine 02/08/20 Christiano James MD [address] [address] Sheriffs Officer Cardiology 02/22/19 Jarek Sol DPM [address] [place] [address] Podiatry 02/14/23 documented as of this encounter
[2025-04-04 12:49] LABS: Basophils Percent Auto 0.1 % (0.2-1.2); Eosinophils Absolute Auto 0.6 K/mm3 (0-0.3); Eosinophils Percent Auto 8.5 % (0-4.4); Immature Granulocyte Absolute 0.08 K/mm3 (0.00-0.031); Immature Granulocyte Percent A 1.1 % (0-0.5); Lymphocytes Absolute Auto 1.56 K/mm3 (0.9-3.2); Lymphocytes Percent Auto 20.7 % (18.3-44.2); Mean Corpuscular HGB Conc 27.9 g/dl (32-36); Mean Corpuscular Hemoglobin 20.6 pg (26-34); Mean Corpuscular Volume 73.9 fl (80-100); Mean Platelet Volume 8.6 fl (7.4-10.4); Monocytes Absolute Auto 0.6 K/mm3 (0.1-0.6); Monocytes Percent Auto 7.8 % (2.6-8.5); Neutrophils Absolute Auto 4.6 K/mm3 (1.3-6.7); Neutrophils Percent Auto 61.8 % (45.5-73.1); Platelet Count Result 326 k/mm3 (150-375); Red Blood Count 1.65 M/mm3 (4.2-5.4); Red Cell Distribution Width 16.6 % (11.5-14.5); White Blood Count 7.5 K/mm3 (4.5-10.0)
[2025-04-04 12:51] LABS: Alanine Aminotransferase 13 U/L (6-35); Albumin Level 2.7 g/dL (3.5-5.1); Alkaline Phosphatase 198 U/L (38-126); Anion Gap 9 mmol/L (4-12); Aspartate Amino Transferase 31 U/L (14-36); Bilirubin,Total 0.2 mg/dL (0.2-1.3); Blood Urea Nitrogen 48 mg/dL (7-17); Calcium 7.6 mg/dL (8.4-10.2); Carbon Dioxide 14 mmol/L (22-30); Chloride 112 mmol/L (98-107); Estimated Glomerular Filt Rate 9; Glucose 130 mg/dL (65-110); Sodium 135 mmol/L (137-145)
[2025-04-04 12:57] LABS: Hematocrit 12.2 % (37.0-47.0); Hemoglobin 3.4 g/dL (12.0-15.0)
[2025-04-04 12:58] LABS: INR 1.2
[2025-04-04 12:59] LABS: Partial Thromboplastin Time 36.2 Seconds (22.3-36.8)
[2025-04-04 13:14] LABS: Hypochromasia 2+; Microcytosis 1+ (NORMAL); Platelet Estimate Adequate (Adequate); Schistocytes None Seen
[2025-04-04] MEDS: SODIUM CHLORIDE 0.9% IV 250 ML 30 ML IV CONT (15:38)
[2025-04-04] MEDS: TUBING, BLOOD SET 1 EACH XX (15:39)
--- NOTE | 2025-04-04 16:15 | ADMGEN ---
This patient, Daria Pickett, was admitted to Medical Room 343-01. Patient/family oriented to hospital policies and general routines including ID bracelet, bed and alarms, visiting hours, pain management, procedures, bathroom and other care routines, personal items, smoking policy, room service/diet, and visiting hours. Information on how to activate the Rapid Response Team has been discussed. Patient/Family are encouraged to report perceived risks to care and to ask questions if they do not understand what they are told or what they should do.
--- NOTE | 2025-04-04 16:22 | PM.IMHP ---
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 The patient presents here from home via EMS on 04/04 for further evaluation post mechanical ground level fall. She reports she was getting up out of bed to transfer to her wheelchair when her board slid out from under her. She fell onto her bottom with a negative head strike and no loss of consciousness. However, patient arrives with swelling to her right eye which she reports is new post-fall. Post fall she reports low back pain and pain to her right hip. She was noted to have a wound to her right knee which she reports has been present for some time. She is currently living at home, son lives with her. She has a son who lives in [place] who tries to help, however she refuses per his statements to the ER provider and has previously been placed in a nursing facility but did not like it and went home. Denies dark tarry stools, hematemesis, dizziness, fatigue, or shortness of breath. Initial VS at presentation: 98? F, HR 72, R 16, 129/49, and 100% on RA. ED workup showed: No leukocytosis, hemoglobin 3.4, INR 1.2, sodium 132, potassium within normal limits, creatinine 4.7 and GFR 9 (previously 0.6 and GFR >60 in 2022), glucose 130, calcium 7.6 in the setting of hypoalbuminemia. Lumbar CT and Pelvic CT showed mild lumbar spondylosis with impingement at L4-5 posterior spinal fusion in stable appearance of multiple chronic lumbar and lower thoracic compression and burst fractures, no acute osseous abnormality, bilateral total hip arthroplasties, no acute osseous abnormality of the pelvis/proximal femurs. EKG showed sinus rhythm, rate 71, left ventricular hypertrophy and ST-T change. Review of Systems Review of Systems: All systems reviewed & are unremarkable except as noted in HPI and below PMFSH Past Medical History Medical History (Updated 04/04/25 @ 16:45 by Cate Bradshaw, [employer]) Chronic anemia Hypertension Depression with anxiety Arthritis Anxiety Asthma Lymphedema of right lower extremity Surgical History Surgical History History of tubal ligation History of bilateral carpal tunnel release History of bilateral cataract extraction History of left above knee amputation History of bilateral knee replacement Left 2014 Right 2015. Family History Family History Mother Cancer Father Cancer Social History Social History Social History: Surrogate medical decision maker: Trey Pickett, [place]. Code status: Full code. Smoking status: Never smoker Second hand tobacco smoke exposure: No Alcohol intake: never Substance use: never Substance use type: does not use Do You Feel Safe in your Home?: Yes Lack of Transportation: No Lack of Food: Never True Current Housing: I Have Housing Concerned About Future Housing: No Difficulty Paying Gas/Electric Bills: No Difficulty Paying for Meds: No Currently Unemployed: No Education: High School Diploma/GED Difficulty w/ Childcare or Family Care: No Additional living arrangements comments: . Lives with son in [place]. Spiritual care concerns: No Meds Home Medications and Allergies Home Medications ?Medication ?Instructions ?Recorded ?Confirmed ?Type ropinirole 4 mg tablet 4 mg PO HS PRN Restless Leg(S) 08/11/20 04/04/25 History atenolol 50 mg tablet (Tenormin) 50 mg PO DAILY 09/10/20 04/04/25 History acetaminophen 325 mg tablet (Mapap 650 mg (2 x 325 mg) PO Q4H PRN 07/02/23 04/04/25 Rx (acetaminophen)) Mild Pain (1-3) Or Fever #0 tabs silver 200 mcg/gram topical gel 1 applic topical DAILY 30 days #0 07/02/23 04/04/25 Rx (Silver-Sept) grams Allergies Allergy/AdvReac Type Severity Reaction Status Date / Time No Known Allergies Allergy Verified 04/04/25 11:37 Vital Signs Vital Signs - 24 hr 04/04/25 11:26 04/04/25 13:46 04/04/25 13:47 Temperature 98.0 F Pulse Rate 72 73 73 Respiratory Rate 16 14 20 Blood Pressure 129/49 L 118/47 L 118/47 L Pulse Oximetry 100 98 99 Oxygen Delivery Room Air 04/04/25 14:01 04/04/25 14:46 04/04/25 15:30 Temperature 98.4 F Pulse Rate 69 71 72 Respiratory Rate 21 H 12 12 Blood Pressure 107/41 L 85/75 L 121/62 Pulse Oximetry 98 98 100 Oxygen Delivery 04/04/25 15:42 04/04/25 15:45 Temperature 98.2 F 98.2 F Pulse Rate 69 69 Respiratory Rate 17 17 Blood Pressure 142/70 H 142/70 H Pulse Oximetry 100 100 Oxygen Delivery Exam Narrative: swelling to right eye, unable to examine pupil as the patient did not tolerate exam. L AKA. rash to back. chronicallt ill appearing. Kyphosis. frail. dishelved and malodorous. Const: General: no acute distress and uncomfortable Other: , female, elderly, chronically ill-appearing, disheveled. HENMT: Face/Nose/Sinus: Normal nares present Mouth: Yes dry mucous membranes Eyes: Other: Right upper and lower eyelids swollen, unable to exam pupil as the patient did not tolerate. Left pupil round, reactive, and 3 mm. Resp: Effort & Inspection: normal respiratory effort Auscultation: clear to auscultation bilaterally Cardio: Rate: regular rate Rhythm: regular rhythm Other: S1-S2 present without murmur, rub, ectopy GI: Other: Abdomen soft, nondistended, nontender. Normoactive bowel sounds in all quadrants. Back/Spine/Pelvis: Back: other (Kyphosis) Skin: General skin exam: normal color Other: Rash to upper back. Chronic wound to right knee. Neuro: Other: A&O x4, moving all extremities, normal speech. However, patient poor historian. Extrem: Other: Left AKA Psych: Other: Fair to poor insight and judgment. H&P: Results Labs Labs: Short CBC 04/04/25 Range/Units 12:29 WBC 7.5 (4.5-10.0) K/mm3 Hgb 3.4 L* D (12.0-15.0) g/dL Hct 12.2 L* (37.0-47.0) % Plt Count 326 (150-375) k/mm3 BMP 04/04/25 12:29 Sodium 135 L Potassium 4.0 Chloride 112 H Carbon Dioxide 14 L BUN 48 H D Creatinine 4.70 H Glucose 130 H Calcium 7.6 L Liver Function 04/04/25 Range/Units 12:29 Total Bilirubin 0.2 (0.2-1.3) mg/dL AST 31 (14-36) U/L ALT 13 (6-35) U/L Alkaline Phosphatase 198 H (38-126) U/L Albumin 2.7 L (3.5-5.1) g/dL Assessment and Plan Assessment and plan (1) Anemia: Qualifiers: Anemia type: unspecified type Qualified Code(s): D64.9 - Anemia, unspecified Code(s): D64.9 - Anemia, unspecified Status: Acute Assessment and Plan: - acute on chronic - Hgb 3.4 (previously 12.4 in 2022), MCV and MCHC low - add iron, TIBC, ferritin, B12, folic acid, and TSH - transfuse if <7 plan for 3U PRBC on 04/04 with Lasix 40 mg after 2nd unit - trend H&H - stool occult negative (2) Acute renal failure: Qualifiers: Acute renal failure type: unspecified Qualified Code(s): N17.9 - Acute kidney failure, unspecified Code(s): N17.9 - Acute kidney failure, unspecified Status: Acute Assessment and Plan: - creatinine 4.7 and GFR 9, previously 0.6 and GFR >60 in 2022 - renal ultrasound - add CK, urine sodium, protein/creatinine, urea, serum osmolality and urine osmolality - check UA - bladder scan for postvoid residual - monitor I&Os - nephrology consultation, awaiting recs (3) Ground-level fall: Code(s): W18.30XA - Fall on same level, unspecified, initial encounter Status: Acute Assessment and Plan: - trauma workup negative. Imaging included lumbar spine and pelvic CT. Initially denied head strike, however reporting right eye swelling post fall. Will obtain stat head CT. - fall precautions - PT/OT evaluation for discharge planning - care coordination for discharge planning (4) Hypertension: Qualifiers: Hypertension type: unspecified Qualified Code(s): I10 - Essential (primary) hypertension Code(s): I10 - Essential (primary) hypertension Status: Chronic Assessment and Plan: - chronic, currently 142/70 - continue home medications: Atenolol - monitor Plan Diet: Renal GI Prophylaxis: Not currently indicated DVT Prophylaxis: Heparin SQ IV fluids: None, currently receiving 3 blood transfusion Lines/Tubes: Peripheral IV Code Status: Full code Quality VTE Prophylaxis VTE prophylaxis: pharmacologic ordered Hospitalist MIPS Advance Care Plan I have confirmed that the patient's Advanced Care Plan is present, code status is documented, or surrogate decision maker is listed in patient medical record.: Yes Medication Reconciliation I have utilized all available resources to obtain, update and review the patients current medications (includes all prescriptions, OTC, herbals, cannabis, and nutritional supplements).: Yes
[2025-04-04 18:20] LABS: Creatinine Urine 36.4 mg/dL; Total Protein Urine Random 169 mg/dL; Ur Ttl Prot Creatinine Ratio 4.64 mg/mg (0-0.20)
[2025-04-04 18:24] LABS: Add Urine Microscopic? YES; Appearance Urine Clear (Clear); Bacteria Urine None Seen /hpf; Bilirubin Urine Negative (Negative); Blood Urine 3+ (Negative); Color Urine Yellow (Yellow); Glucose Urine UA 1+ mg/dL (Negative); Ketones Urine Negative (Negative); Leukocyte Esterase Ur 1+ LEU/UL (Negative); Need Manual Microscopic Reviewed; Nitrate Urine Negative (Negative); Non Pathogenic Casts 0-2; Protein Urine 2+ mg/dL (Negative); RBC Urine >100 /hpf (0-2); Specific Grav Ur 1.012 (1.001-1.035); Squamous Epithelial Cell Urine Few /hpf (Few); Urobilinogen Urine 0.2 mg/dL (<2.0); pH Urine 7.5 (5.0-9.0)
[2025-04-04 18:29] LABS: Urea Random Urine 345 MG/DL
[2025-04-04 18:33] LABS: Sodium Urine Random 54 meq/L
[2025-04-04 19:06] LABS: CRP 6.3 mg/dL (<1.0); Creatine Kinase 45 U/L (30-135)
[2025-04-04 19:33] LABS: Hepatitis B Surface Antigen Negative (Negative)
[2025-04-04 19:51] LABS: Hepatitis B Surface Anti Res Negative
[2025-04-04] MEDS: FUROSEMIDE INJ 40 MG/4 ML VIAL IV PUSH (19:53)
[2025-04-04] MEDS: HEPARIN SODIUM 5,000 UNITS/ML VIAL 5000 UNITS SUB-Q (19:58)
[2025-04-04 20:09] LABS: Folic Acid 6.8 ng/mL (2.76->20)
[2025-04-05] VITALS (13 sets, daily range): BP systolic 92–146; BP diastolic 48–76; PULSE 42–72; RESP 14–16; TEMP 36.4–36.8; O2SAT 96–100; BMI 12.3
[2025-04-05] MEDS: OFLOXACIN 0.3% OPHTH SOLN 5 ML BTL 1 DROP AFFCTD EYE ×5 (00:05→21:31)
[2025-04-05] MEDS: SODIUM CHLORIDE 0.9% IV 250 ML 30 ML (00:05)
[2025-04-05] MEDS: TUBING, BLOOD PLUM PUMP TUBING 1 EACH XX (00:05)
[2025-04-05 06:16] LABS: Basophils Percent Auto 0.3 % (0.2-1.2); Eosinophils Absolute Auto 0.5 K/mm3 (0-0.3); Eosinophils Percent Auto 8.1 % (0-4.4); Hematocrit 31.5 % (37.0-47.0); Hemoglobin 9.8 g/dL (12.0-15.0); Immature Granulocyte Absolute 0.02 K/mm3 (0.00-0.031); Immature Granulocyte Percent A 0.3 % (0-0.5); Lymphocytes Absolute Auto 1.18 K/mm3 (0.9-3.2); Lymphocytes Percent Auto 18.6 % (18.3-44.2); Mean Corpuscular HGB Conc 31.1 g/dl (32-36); Mean Corpuscular Hemoglobin 25.8 pg (26-34); Mean Corpuscular Volume 82.9 fl (80-100); Mean Platelet Volume 8.1 fl (7.4-10.4); Monocytes Absolute Auto 0.5 K/mm3 (0.1-0.6); Monocytes Percent Auto 7.4 % (2.6-8.5); Neutrophils Absolute Auto 4.1 K/mm3 (1.3-6.7); Neutrophils Percent Auto 65.3 % (45.5-73.1); Platelet Count Result 231 k/mm3 (150-375); White Blood Count 6.3 K/mm3 (4.5-10.0)
[2025-04-05 06:27] LABS: Alanine Aminotransferase 11 U/L (6-35); Albumin Level 2.5 g/dL (3.5-5.1); Alkaline Phosphatase 160 U/L (38-126); Anion Gap 9 mmol/L (4-12); Aspartate Amino Transferase 33 U/L (14-36); Blood Urea Nitrogen 48 mg/dL (7-17); Calcium 7.9 mg/dL (8.4-10.2); Carbon Dioxide 14 mmol/L (22-30); Chloride 115 mmol/L (98-107); Estimated CRCL calculation 5 ml/min; Estimated Glomerular Filt Rate 11; Glucose 81 mg/dL (65-110); Magnesium 1.9 mg/dL (1.6-2.3); Phosphorus 4.3 mg/dL (2.5-4.5); Potassium 4.2 mmol/L (3.4-5.0); Sodium 138 mmol/L (137-145)
[2025-04-05 06:34] LABS: Iron 232 ug/dL (37-170)
[2025-04-05 06:43] LABS: Percent Iron Saturation 87 % (20-50)
[2025-04-05] MEDS: SODIUM BICARBONATE TAB 650 MG TABLET PO ×2 (09:25→17:12)
[2025-04-05] MEDS: HEPARIN SODIUM 5,000 UNITS/ML VIAL 5000 UNITS SUB-Q ×2 (09:25→21:31)
[2025-04-05] MEDS: atenoloL 50 MG TABLET PO (09:26)
--- NOTE | 2025-04-05 10:58 | P.CONNP_ITS ---
Assessment and Plan Assessment and plan (1) Acute kidney injury: Code(s): N17.9 - Acute kidney failure, unspecified Status: Acute Assessment and Plan: * significant decline as noted by admission labs * acute versus acute on chronic versus chronic?? * only previous labs available are from July 2023 -- creatinine normal at that time * evaluation to date noted: * renal ultrasound with small atrophic left kidney; unable to visualize right kidney due patient's contracted state * urine eosinophils negative * normal CPK * nephrotic range proteinuria * urine electrolytes prerenal * surprisingly, no critical electrolytes noted and stable volume status although she does have a metabolic acidosis * evidence would seem to indicate a chronic component of disease present... * check serological studies for completeness * however, if her renal function does not improve, she remains at risk for TONGUE LINING STITCHER/dialysis in the near future * no need for urgent TONGUE LINING STITCHER/dialysis at this time... * follow trend of repeat labs and UOP (2) Anemia: Qualifiers: Anemia type: unspecified type Qualified Code(s): D64.9 - Anemia, unspecified Code(s): D64.9 - Anemia, unspecified Status: Acute Assessment and Plan: * quite severe on presenation * s/p PRBC transfusion with improvement in H/H * no evidence of GI bleed (hemoccult negative) * suspect related to severe renal insufficiency * suspect will need outpatient ADRIENNE * follow trend of H/H (3) Ground-level fall: Code(s): W18.30XA - Fall on same level, unspecified, initial encounter Status: Acute Assessment and Plan: * trauma workup negative. * Imaging to date without any acute injuries * fall precautions * PT/OT evaluation (4) Hyponatremia: Code(s): E87.1 - Hypo-osmolality and hyponatremia Status: Acute Assessment and Plan: * as noted on admission * appears to have a chronic component * likely exacerbated by renal dysfunction * follow trend of sodium (5) Hypertension: Qualifiers: Hypertension type: unspecified Qualified Code(s): I10 - Essential (primary) hypertension Code(s): I10 - Essential (primary) hypertension Status: Chronic Assessment and Plan: * reasonable control * follow trend of hemodynamics (6) Ulcer of right knee: Code(s): L97.819 - Non-pressure chronic ulcer of other part of right lower leg with unspecified severity Status: Acute Assessment and Plan: * chronic per patient * no evidence of acute infection * local wound care I will continue to follow the patient with you while she remains hospitalized and make further recommendations as deemed necessary. Thank you for allowing me to participate in the care of this patient. L History of Present Illness Reason for Consult Consult date: 04/05/25 Reason for consult: acute renal failure Chief Complaint Chief complaint: anemia/renal failure History of Present Illness Narrative: A great deal of the information I have obtained is from review of the electronic medical record as well as discussion with the physician / nurses involved in the patient's care as the patient is a very poor historian with regard to the events that led to her admission to the hospital. The patient is a 69-year-old female past medical history as outlined below who presented to [facility] Emergency Room after sustaining a fall. The patient was apparently trying to get out her bed to transfer to her wheelchair when her sliding board moved from under her resulting in her fall on her bottom/buttocks. There was no apparent head injury or loss of consciousness prior to fall. She does report after the fall having increased lower back pain and pain to her right hip. EMS was called following a fall and she was subsequently transferred to the emergency for further assessment. Workup and evaluation emergency room demonstrated the patient be hemodynamically stable and no acute distress. Routine blood tests were done which demonstrated a normal white blood cell count, hemoglobin of 3.4 INR of 1.2 and a marked decline in her kidney function with a creatinine of 4.7 but with no critical electrolyte abnormalities although her sodium was 132 and calcium 7.6 with evidence of hypoalbuminemia. given her fall and complaints, CT of her lumbar spine and pelvis was significant for mild lumbar spondylosis with his unit at L4-L5 with the appearance of chronic/multiple lumbar/lower thoracic compression and burst fractures but with no osseous abnormality and evidence of bilateral total hip arthroplasty surgery. Her Ki her EKG was normal sinus rhythm no evidence of ischemic changes. Given her severe anemia and evidence of acute kidney injury/acute renal failure, she was admitted to the hospital for further evaluation therapy. Since her admission, she has received 3 units of packed red blood cells with improvement in her hemoglobin and hematocrit. However, her renal function remains abnormal. Renal consultation was requested due to her acute kidney injury/acute renal failure. Unfortunately, the only previous labs I have available to compare to or from 2 years ago from July 2023 that showed her creatinine to be well within normal limits. Despite her advanced kidney disease by admission labs, the fact that she had no critical electrolyte abnormalities argues that she may have had some degree of renal insufficiency for a prolonged period of time. Her severe anemia and may be a manifestation of her advanced kidney disease as well rather than acute GI blood loss but once again, I suspect this may be a chronic issue as well given her relative hemodynamic stability on presentation to the emergency room. She states that she is still making urine although it is difficult to quantitate how much in general worth has been any change in her urine output from my discussion the patient Currently, the time my evaluation, she appears to be in no acute distress. Review of Systems 2 Review of Systems: As per HPI. [facility] Past Medical History Medical History (Updated 04/07/25 @ 11:32 by Maci Christian MD) Chronic anemia Hypertension Depression with anxiety Arthritis Anxiety Asthma Lymphedema of right lower extremity Surgical History Surgical History History of tubal ligation History of bilateral carpal tunnel release History of bilateral cataract extraction History of left above knee amputation History of bilateral knee replacement Left 2014 Right 2015. Family History Family History Mother Cancer Father Cancer Social History Social History Social History: Surrogate medical decision maker: Trey Pickett, [place]. Code status: Full code. Smoking status: Never smoker Second hand tobacco smoke exposure: No Alcohol intake: never Substance use: never Substance use type: does not use Do You Feel Safe in your Home?: Yes Lack of Transportation: No Lack of Food: Never True Current Housing: I Have Housing Concerned About Future Housing: No Difficulty Paying Gas/Electric Bills: No Difficulty Paying for Meds: No Currently Unemployed: No Education: High School Diploma/GED Difficulty w/ Childcare or Family Care: No Additional living arrangements comments: . Lives with son in [place]. Spiritual care concerns: No Meds Home Medications and Allergies Home Medications ?Medication ?Instructions ?Recorded ?Confirmed ?Type ropinirole 4 mg tablet 4 mg PO HS PRN Restless Leg(S) 08/11/20 04/04/25 History atenolol 50 mg tablet (Tenormin) 50 mg PO DAILY 09/10/20 04/04/25 History acetaminophen 325 mg tablet (Mapap 650 mg (2 x 325 mg) PO Q4H PRN 07/02/23 04/04/25 Rx (acetaminophen)) Mild Pain (1-3) Or Fever #0 tabs silver 200 mcg/gram topical gel 1 applic topical DAILY 30 days #0 07/02/23 04/04/25 Rx (Silver-Sept) grams Allergies Allergy/AdvReac Type Severity Reaction Status Date / Time No Known Allergies Allergy Verified 04/04/25 11:37 Vital Signs Vital Signs Temp Pulse Resp BP Pulse Ox O2 Del Method FiO2 04/05/25 09:47 Room Air 04/05/25 09:26 67 04/05/25 08:00 66 04/05/25 04:00 58 L 04/05/25 02:41 97.8 F 60 16 141/66 H 99 04/05/25 01:41 98 F 58 L 16 128/55 L 100 04/05/25 00:41 97.6 F 61 16 146/76 H 99 04/05/25 00:00 69 04/04/25 23:41 98.2 F 65 16 112/57 L 98 04/04/25 23:26 98.4 F 63 16 124/54 L 100 04/04/25 20:24 63 20 97 Room Air 21 04/04/25 20:00 67 04/04/25 19:40 Room Air 04/04/25 19:18 98.2 F 65 16 121/59 L 100 04/04/25 18:18 98.4 F 60 18 110/64 98 04/04/25 17:18 98.2 F 67 20 125/59 L 100 04/04/25 17:10 Room Air 04/04/25 17:02 98.3 F 70 22 H 128/53 L 100 04/04/25 16:47 98.4 F 69 16 131/53 L 100 Exam 2 Narrative: GENERAL APPEARANCE: elderly, frail and chronically ill appearing female in no acute distress HEENT: normocephalic, atraumatic, pallor to conjunctiva and sclera, nares patient NECK: no lymphadenopathy, thyromegaly, or JVD MOUTH: normal lips, teeth, and gums CARDIOVASCULAR: RRR, normal S1 and S2, no rub RESPIRATORY: clear anteriorly ABDOMEN: soft, nontender, nondistended, positive bowel sounds present EXTREMITIES: no evidence of cyanosis, clubbing, or edema; left AKA; right knee wound/ulcer NEUROLOGICAL: alert and oriented x 3; no focal deficits noted Skin: Other: Rash to upper back. Chronic wound to right knee. Extrem: Other: Left AKA Results Lab Results 04/07/25 04:52 04/07/25 04:52 Lab results: Most recent lab results Calcium 7.9 mg/dL (8.4-10.2) L 04/05/25 05:57 Phosphorus 4.3 mg/dL (2.5-4.5) 04/05/25 05:57 Magnesium 1.9 mg/dL (1.6-2.3) 04/05/25 05:57 Urine Creatinine 36.4 mg/dL 04/04/25 18:03
[2025-04-05 11:02] LABS: Eosinophil Urine None Seen % (None Seen)
[2025-04-05 11:03] LABS: Urine Eos QC 2nd Tech Confirmed
--- NOTE | 2025-04-05 11:33 | P.PNIM_ITS ---
Progress Note: A&P Assessment and Plan (1) Anemia: Qualifiers: Anemia type: unspecified type Qualified Code(s): D64.9 - Anemia, unspecified Code(s): D64.9 - Anemia, unspecified Status: Acute Assessment and Plan: - acute on chronic - Hgb 3.4 (previously 12.4 in 2022), MCV and MCHC low - add iron, TIBC, ferritin, B12, folic acid, and TSH - transfuse if <7 plan for 3U PRBC on 04/04 with Lasix 40 mg after 2nd unit, post H&H 9.8/31.5. - trend H&H - stool occult negative - Iron 232. TIBC 268, % saturation 87. (2) Acute renal failure: Qualifiers: Acute renal failure type: unspecified Qualified Code(s): N17.9 - Acute kidney failure, unspecified Code(s): N17.9 - Acute kidney failure, unspecified Status: Acute Assessment and Plan: - creatinine 4.02 and GFR 11, previously 0.6 and GFR >60 in 2022 - renal ultrasound - add CK, urine sodium, protein/creatinine 4.64, urine creatinine 36.4, urea, serum osmolality and urine osmolality - check UA - bladder scan for postvoid residual - monitor I&Os - nephrology consultation, awaiting recs (3) Severe protein-calorie malnutrition: Code(s): E43 - Unspecified severe protein-calorie malnutrition Status: Acute Assessment and Plan: * weight 63 lb 4 oz. * Protein 6.0. * [employer] Wafer Breaker consult. * Nutritional ice cream TID. Regular diet. * TSH 2.820 (4) Ground-level fall: Code(s): W18.30XA - Fall on same level, unspecified, initial encounter Status: Acute Assessment and Plan: - trauma workup negative. Imaging included lumbar spine and pelvic CT. Initially denied head strike, however reporting right eye swelling post fall. Will obtain stat head CT. - fall precautions - PT/OT evaluation for discharge planning - care coordination for discharge planning (5) Hypertension: Qualifiers: Hypertension type: unspecified Qualified Code(s): I10 - Essential (prim nimesh) hypertension Code(s): I10 - Essential (primary) hypertension Status: Chronic Assessment and Plan: - chronic, currently 141/66 - continue home medications: Atenolol - monitor (6) Ulcer of right knee: Code(s): L97.819 - Non-pressure chronic ulcer of other part of right lower leg with unspecified severity Status: Acute Assessment and Plan: * wound care consult, appreciate recommendations. * Silver gel and cover dressing daily. Dressing applied. Plan Diet: Regular GI Prophylaxis: Not currently indicated DVT Prophylaxis: Heparin SQ IV fluids: None, currently receiving 3 blood transfusion Lines/Tubes: Peripheral IV Code Status: Full code Subjective Date/time seen: 04/05/25 11:33 Interval history: Patient reports pain in right leg is a 4, frequent, and aching. Patient reports right eye has been irritated. Denies chest pain, palpitations, headache, dizziness, nausea, or vomiting. Review of Systems Review of Systems: All systems reviewed & are unremarkable except as noted in HPI and below Exam Const: General: no acute distress and uncomfortable Eyes: Other: Right upper and lower eyelids swollen, unable to exam pupil as the patient did not tolerate. Resp: Effort & Inspection: normal respiratory effort Auscultation: clear to auscultation bilaterally Cardio: Rate: regular rate Rhythm: regular rhythm GI: GI Palp: Yes Soft to palpation Auscultation: normal bowel sounds Skin: Other: Rash to upper back. Chronic wound to right knee. Neuro: Speech: normal speech Extrem: General: no pedal edema Psych: Mental Status: mental status grossly normal Other: poor historian Objective Data Vital Signs Vital Signs: Vital Signs - 24 hr 04/04/25 13:46 04/04/25 13:47 04/04/25 14:01 Temperature Pulse Rate 73 73 69 Respiratory Rate 14 20 21 H Blood Pressure 118/47 L 118/47 L 107/41 L Pulse Oximetry 98 99 98 Oxygen Delivery Fraction of Inspired Oxygen 04/04/25 14:46 04/04/25 15:30 04/04/25 15:42 Temperature 98.4 F 98.2 F Pulse Rate 71 72 69 Respiratory Rate 12 12 17 Blood Pressure 85/75 L 121/62 142/70 H Pulse Oximetry 98 100 100 Oxygen Delivery Fraction of Inspired Oxygen 04/04/25 15:45 04/04/25 16:47 04/04/25 17:02 Temperature 98.2 F 98.4 F 98.3 F Pulse Rate 69 69 70 Respiratory Rate 17 16 22 H Blood Pressure 142/70 H 131/53 L 128/53 L Pulse Oximetry 100 100 100 Oxygen Delivery Fraction of Inspired Oxygen 04/04/25 17:10 04/04/25 17:18 04/04/25 18:18 Temperature 98.2 F 98.4 F Pulse Rate 67 60 Respiratory Rate 20 18 Blood Pressure 125/59 L 110/64 Pulse Oximetry 100 98 Oxygen Delivery Room Air Fraction of Inspired Oxygen 04/04/25 19:18 04/04/25 19:40 04/04/25 20:00 Temperature 98.2 F Pulse Rate 65 67 Respiratory Rate 16 Blood Pressure 121/59 L Pulse Oximetry 100 Oxygen Delivery Room Air Fraction of Inspired Oxygen 04/04/25 20:24 04/04/25 23:26 04/04/25 23:41 Temperature 98.4 F 98.2 F Pulse Rate 63 63 65 Respiratory Rate 20 16 16 Blood Pressure 124/54 L 112/57 L Pulse Oximetry 97 100 98 Oxygen Delivery Room Air Fraction of Inspired Oxygen 21 04/05/25 00:00 04/05/25 00:41 04/05/25 01:41 Temperature 97.6 F 98 F Pulse Rate 69 61 58 L Respiratory Rate 16 16 Blood Pressure 146/76 H 128/55 L Pulse Oximetry 99 100 Oxygen Delivery Fraction of Inspired Oxygen 04/05/25 02:41 04/05/25 04:00 04/05/25 09:26 Temperature 97.8 F Pulse Rate 60 58 L 67 Respiratory Rate 16 Blood Pressure 141/66 H Pulse Oximetry 99 Oxygen Delivery Fraction of Inspired Oxygen 04/05/25 09:47 Temperature Pulse Rate Respiratory Rate Blood Pressure Pulse Oximetry Oxygen Delivery Room Air Fraction of Inspired Oxygen Intake/Output Intake/Output: Intake & Output 04/02/25 04/03/25 04/04/25 04/05/25 23:59 23:59 23:59 23:59 Intake Total 1730 590 Balance 1730 590 Meds/Results Medications: Active Medications Generic Name Dose Route Start Last Admin Trade Name Freq PRN Reason Stop Dose Admin Acetaminophen 650 mg 04/04/25 21:43 Acetaminophen 325 Mg Tablet PO Q4H PRN Mild Pain (1-3) Or Fever Atenolol 50 mg 04/05/25 09:00 04/05/25 09:26 Atenolol 50 Mg Tablet PO 50 mg DAILY LISANDRA Administration Furosemide 40 mg 04/04/25 16:42 04/04/25 19:53 Furosemide Inj 40 Mg/4 Ml Vial IV PUSH 40 mg ONCE PRN Administration After 2nd blood transfusion Heparin Sodium (Porcine) 5,000 units 04/04/25 21:00 04/05/25 09:25 Heparin Sodium 5,000 Units/Ml Vial SUB-Q 5,000 units Q12HR LISANDRA Administration Ofloxacin 1 drop 04/04/25 23:40 04/05/25 09:26 Ofloxacin 0.3% Ophth Soln 5 Ml Btl AFFCTD EYE 1 drop QID LISANDRA Administration Ropinirole HCl 4 mg 04/04/25 21:43 Ropinirole Hcl 1 Mg Tablet PO HS PRN Restless Leg(S) Sodium Bicarbonate 650 mg 04/05/25 09:00 04/05/25 09:25 Sodium Bicarbonate Tab 650 Mg Tablet PO 650 mg BID LISANDRA Administration Radiology Results: ITS Impressions Lumbar Spine CT 04/04/25 13:02 IMPRESSION: 1. Mild lumbar spondylosis with impingement at L4-5 posterior spinal fusion and stable appearance of multiple chronic lumbar and lower thoracic compression and burst fractures as detailed above. No acute osseous abnormality. 2. Bilateral total hip arthroplasties. No acute osseous abnormality in the pelvis or proximal femurs. Pelvis CT 04/04/25 13:02 IMPRESSION: 1. Mild lumbar spondylosis with impingement at L4-5 posterior spinal fusion and stable appearance of multiple chronic lumbar and lower thoracic compression and burst fractures as detailed above. No acute osseous abnormality. 2. Bilateral total hip arthroplasties. No acute osseous abnormality in the pelvis or proximal femurs. Head CT 04/04/25 22:04 Impression: No acute intracranial hemorrhage or suspicious mass effect. Renal Ultrasound 04/04/25 22:15 IMPRESSION: Limited evaluation secondary to poor acoustic penetration and patient positioning. Severe medical renal disease within the visualized atrophic left kidney. No left-sided hydronephrosis. Labs Labs: Laboratory Results - last 24 hr 04/04/25 04/04/25 04/04/25 12:29 14:02 18:03 WBC 7.5 RBC 1.65 L Hgb 3.4 L* D Hct 12.2 L* MCV 73.9 L MCH 20.6 L MCHC 27.9 L RDW 16.6 H Plt Count 326 MPV 8.6 Immature Gran % (Auto) 1.1 H Neut % (Auto) 61.8 Lymph % (Auto) 20.7 Zavala % (Auto) 7.8 Eos % (Auto) 8.5 H Baso % (Auto) 0.1 L Lymph # (Auto) 1.56 Zavala # (Auto) 0.6 Eos # (Auto) 0.6 H Baso # (Auto) 0.0 Abs Immat Gran (auto) 0.08 H Absolute Neuts (auto) 4.6 Absolute Nucleated RBC 0.000 Band Neutrophils % Not Reportable Nucleated RBC % 0.0 Platelet Estimate Adequate Hypochromasia 2+ Microcytosis 1+ Schistocytes None seen PT 16.0 H INR 1.2 APTT 36.2 Sodium 135 L Potassium 4.0 Chloride 112 H Carbon Dioxide 14 L Anion Gap 9 BUN 48 H D Creatinine 4.70 H Estim Creat Clear Calc Not Reportable Estimated GFR 9 L Glucose 130 H Calcium 7.6 L Phosphorus Magnesium Iron TIBC % Saturation Ferritin Total Bilirubin 0.2 AST 31 ALT 13 Alkaline Phosphatase 198 H Total Creatine Kinase 45 C-Reactive Protein 6.3 H Total Protein 7.0 Albumin 2.7 L Vitamin B12 581.0 Folate 6.8 TSH (Reflex) Urine Color Yellow Urine Appearance Clear Urine pH 7.5 Ur Specific Wheelwright 1.012 Urine Protein 2+ H Urine Glucose (UA) 1+ H Urine Ketones Negative Ur Blood (Man) 3+ H Urine Nitrate Negative Urine Bilirubin Negative Urine Urobilinogen 0.2 Add Ur Microanalysis Reviewed Leukocyte Esterase Rfl 1+ H Urine RBC >100 H Urine WBC 6-10 H Ur Squamous Epith Cells Few Urine Bacteria None seen Urine Casts 0-2 Urine Eosinophils U Random Total Protein 169 Ur Random Sodium 54 Ur Random Urea 345 Urine Creatinine 36.4 Protein/Creat Ratio 2 4.64 H Hep Bs Antigen Negative Hep Bs Antibody Negative Blood Type AB Positive Antibody Screen Negative Crossmatch See Detail 04/05/25 04/05/25 05:57 10:36 WBC 6.3 RBC 3.80 L Hgb 9.8 L D Hct 31.5 L MCV 82.9 D MCH 25.8 L D MCHC 31.1 L RDW 18.0 H Plt Count 231 MPV 8.1 Immature Gran % (Auto) 0.3 Neut % (Auto) 65.3 Lymph % (Auto) 18.6 Zavala % (Auto) 7.4 Eos % (Auto) 8.1 H Baso % (Auto) 0.3 Lymph # (Auto) 1.18 Zavala # (Auto) 0.5 Eos # (Auto) 0.5 H Baso # (Auto) 0.0 Abs Immat Gran (auto) 0.02 Absolute Neuts (auto) 4.1 Absolute Nucleated RBC 0.000 Band Neutrophils % Nucleated RBC % 0.0 Platelet Estimate Hypochromasia Microcytosis Schistocytes PT INR APTT Sodium 138 Potassium 4.2 Chloride 115 H Carbon Dioxide 14 L Anion Gap 9 BUN 48 H Creatinine 4.02 H Estim Creat Clear Calc 5 Estimated GFR 11 L Glucose 81 Calcium 7.9 L Phosphorus 4.3 Magnesium 1.9 Iron 232 H TIBC 268 % Saturation 87 H Ferritin 18.90 Total Bilirubin 1.0 AST 33 ALT 11 Alkaline Phosphatase 160 H Total Creatine Kinase C-Reactive Protein Total Protein 6.0 L Albumin 2.5 L Vitamin B12 Folate TSH (Reflex) 2.820 Urine Color Urine Appearance Urine pH Ur Specific Wheelwright Urine Protein Urine Glucose (UA) Urine Ketones Ur Blood (Man) Urine Nitrate Urine Bilirubin Urine Urobilinogen Add Ur Microanalysis Leukocyte Esterase Rfl Urine RBC Urine WBC Ur Squamous Epith Cells Urine Bacteria Urine Casts Urine Eosinophils None seen U Random Total Protein Ur Random Sodium Ur Random Urea Urine Creatinine Protein/Creat Ratio 2 Hep Bs Antigen Hep Bs Antibody Blood Type Antibody Screen Crossmatch Quality VTE Prophylaxis VTE prophylaxis: pharmacologic ordered
--- NOTE | 2025-04-05 11:56 | PC.NURSE ---
After RN completed assessment, APS entered room and questioned patient regarding home and surroundings. RN does not know enough about patient to provide a total background and report the need for APS. However, did tell APS patient was covered in bugs when patient was brought to the floor and all of patient's belongings are disgusting.
--- NOTE | 2025-04-05 14:44 | PCPTNOTE ---
Spoke with current hospitalist, CINDY to remove bedrest orders for safe participation with therapy. Will make RN aware.
--- NOTE | 2025-04-05 15:48 | PC.NURSE ---
Catalina SALCEDO returned phone call about patient's heart rate being bradycardic (low 50s-high 40s). Catalina SALCEDO told RN to notify if heart rate is below 46. Catalina SALCEDO is going to adjust medication.
[2025-04-05 16:53] LABS: IFOB Positive Control Positive; Immunochemical Fecal Occult Bl Negative (N)
--- NOTE | 2025-04-05 17:10 | PC.NURSE ---
Patient's HR has been dipping in the 40s periodically. Patient is on telemetry. RN notified SIMULATION DEVELOPER Catalina again about HR. Catalina requested cardiology consult. RN contacted Dr. Wadsworth. He answered and was made aware.
[2025-04-05] MEDS: ACETAMINOPHEN 325 MG TABLET 650 MG PO (17:12)
--- NOTE | 2025-04-05 17:25 | PC.NURSE ---
Dr. Torres called RN and was updated. RN told that patient was not symptomatic at this time, does not ambulate, and BP is stable. said RN can wait to pass medication in morning until cardiology sees patient.
[2025-04-05 17:59] LABS: Anion Gap 9 mmol/L (4-12); Blood Urea Nitrogen 48 mg/dL (7-17); Calcium 7.8 mg/dL (8.4-10.2); Carbon Dioxide 14 mmol/L (22-30); Chloride 113 mmol/L (98-107); Estimated CRCL calculation 5 ml/min; Estimated Glomerular Filt Rate 11; Glucose 70 mg/dL (65-110); Potassium 4.2 mmol/L (3.4-5.0); Sodium 136 mmol/L (137-145)
[2025-04-06] VITALS (11 sets, daily range): BP systolic 93–136; BP diastolic 40–62; PULSE 47–109; RESP 16–20; TEMP 36.4–36.9; O2SAT 95–100
[2025-04-06 05:18] LABS: Basophils Percent Auto 0.3 % (0.2-1.2); Eosinophils Absolute Auto 0.6 K/mm3 (0-0.3); Eosinophils Percent Auto 7.2 % (0-4.4); Hematocrit 34.9 % (37.0-47.0); Hemoglobin 10.8 g/dL (12.0-15.0); Immature Granulocyte Absolute 0.02 K/mm3 (0.00-0.031); Immature Granulocyte Percent A 0.3 % (0-0.5); Lymphocytes Absolute Auto 1.28 K/mm3 (0.9-3.2); Lymphocytes Percent Auto 16.1 % (18.3-44.2); Mean Corpuscular HGB Conc 30.9 g/dl (32-36); Mean Corpuscular Hemoglobin 25.6 pg (26-34); Mean Corpuscular Volume 82.7 fl (80-100); Mean Platelet Volume 8.5 fl (7.4-10.4); Monocytes Absolute Auto 0.4 K/mm3 (0.1-0.6); Neutrophils Absolute Auto 5.7 K/mm3 (1.3-6.7); Neutrophils Percent Auto 71.1 % (45.5-73.1); Platelet Count Result 282 k/mm3 (150-375); Red Blood Count 4.22 M/mm3 (4.2-5.4); Red Cell Distribution Width 18.6 % (11.5-14.5)
[2025-04-06 05:36] LABS: Alanine Aminotransferase 11 U/L (6-35); Albumin Level 2.6 g/dL (3.5-5.1); Alkaline Phosphatase 182 U/L (38-126); Anion Gap 9 mmol/L (4-12); Aspartate Amino Transferase 33 U/L (14-36); Bilirubin,Total 0.4 mg/dL (0.2-1.3); Blood Urea Nitrogen 50 mg/dL (7-17); Carbon Dioxide 15 mmol/L (22-30); Chloride 114 mmol/L (98-107); Estimated CRCL calculation 5 ml/min; Estimated Glomerular Filt Rate 10; Glucose 75 mg/dL (65-110); Magnesium 1.8 mg/dL (1.6-2.3); Potassium 4.5 mmol/L (3.4-5.0); Sodium 138 mmol/L (137-145)
--- NOTE | 2025-04-06 09:38 | PCPTNOTE ---
Attempted to evaluate patient and assess SB transfers to and from and patient refuses states not now.
[2025-04-06] MEDS: HEPARIN SODIUM 5,000 UNITS/ML VIAL 5000 UNITS SUB-Q ×2 (09:39→21:53)
[2025-04-06] MEDS: OFLOXACIN 0.3% OPHTH SOLN 5 ML BTL 1 DROP AFFCTD EYE ×4 (09:39→21:54)
[2025-04-06] MEDS: ACETAMINOPHEN 325 MG TABLET 650 MG PO ×2 (09:39→13:11)
[2025-04-06] MEDS: SODIUM BICARBONATE TAB 650 MG TABLET PO ×2 (09:40→13:11)
--- NOTE | 2025-04-06 10:02 | P.PNIM_ITS ---
Progress Note: A&P Assessment and Plan (1) Anemia: Qualifiers: Anemia type: unspecified type Qualified Code(s): D64.9 - Anemia, unspecified Code(s): D64.9 - Anemia, unspecified Status: Acute Assessment and Plan: - acute on chronic - Hgb 3.4 (previously 12.4 in 2022), MCV and MCHC low - add iron, TIBC, ferritin, B12, folic acid, and TSH - transfuse if <7 plan for 3U PRBC on 04/04 with Lasix 40 mg after 2nd unit, post H&H 9.8/31.5. H&H today was 10.8/34.9. - trend H&H - stool occult negative - Iron 232. TIBC 268, % saturation 87. (2) Acute renal failure: Qualifiers: Acute renal failure type: unspecified Qualified Code(s): N17.9 - Acute kidney failure, unspecified Code(s): N17.9 - Acute kidney failure, unspecified Status: Acute Assessment and Plan: - creatinine 4.40 and GFR 10, previously 0.6 and GFR >60 in 2022 - renal ultrasound - add CK, urine sodium, protein/creatinine 4.64, urine creatinine 36.4, urea, serum osmolality and urine osmolality - check UA - bladder scan for postvoid residual - monitor I&Os - nephrology consultation, awaiting recs (3) Severe protein-calorie malnutrition: Code(s): E43 - Unspecified severe protein-calorie malnutrition Status: Acute Assessment and Plan: * weight 63 lb 4 oz. * Protein 6.0. * Reptile Keeper consult. * Nutritional ice cream TID. Regular diet. * TSH 2.820 (4) Ground-level fall: Code(s): W18.30XA - Fall on same level, unspecified, initial encounter Status: Acute Assessment and Plan: - trauma workup negative. Imaging included lumbar spine and pelvic CT. Initially denied head strike, however reporting right eye swelling post fall. Will obtain stat head CT. - fall precautions - PT/OT evaluation for discharge planning - care coordination for discharge planning (5) Hypertension: Qualifiers: Hypertension type: unspecified Qualified Code(s): I10 - Essential (primary) hypertension Code(s): I10 - Essential (primary) hypertension Status: Chronic Assessment and Plan: - chronic, currently 128/58. - continue home medications: Atenolol - monitor (6) Ulcer of right knee: Code(s): L97.819 - Non-pressure chronic ulcer of other part of right lower leg with unspecified severity Status: Acute Assessment and Plan: * wound care consult, appreciate recommendations. * Silver gel and cover dressing daily. Dressing applied. (7) Bradycardia: Code(s): R00.1 - Bradycardia, unspecified Status: Acute Assessment and Plan: * Dipping down to 40's and overnight into 30's. * Cardiology consulted. * Hold Atenolol. Plan Diet: Regular GI Prophylaxis: Not currently indicated DVT Prophylaxis: Heparin SQ IV fluids: None, currently receiving 3 blood transfusion Lines/Tubes: Peripheral IV Code Status: Full code Subjective Date/time seen: 04/06/25 10:02 Interval history: Patient reports pain in right leg is a 4, frequent, and aching. Patient reports right eye is feeling a little better, nurse just put drops in but patient reports that she is able to open and see out of. Denies chest pain, palpitations, headache, dizziness, nausea, or vomiting. Patient had episodes of bradycardia into 40's and dipped down once overnight into 30's, Cardiology consulted. Review of Systems Review of Systems: All systems reviewed & are unremarkable except as noted in HPI and below Exam Const: General: no acute distress and uncomfortable Eyes: Other: Right upper and lower eyelid swollen but able to open a little, patient reports it feels better. Resp: Effort & Inspection: normal respiratory effort Auscultation: clear to auscultation bilaterally Cardio: Rate: bradycardic Rhythm: regular rhythm Other: ranging in 40's to 61. GI: GI Palp: Yes Soft to palpation Auscultation: normal bowel sounds Skin: Other: Rash to upper back. Chronic wound to right knee, dressing C/D/I. Neuro: Speech: normal speech Extrem: General: no pedal edema Psych: Mental Status: mental status grossly normal Objective Data Vital Signs Vital Signs: Vital Signs - 24 hr 04/05/25 12:00 04/05/25 14:00 04/05/25 16:00 Temperature 98.3 F Pulse Rate 52 L 72 49 L Respiratory Rate 16 Blood Pressure 128/64 Pulse Oximetry 96 Oxygen Delivery 04/05/25 17:07 04/05/25 19:54 04/05/25 20:00 Temperature 97.7 F Pulse Rate 42 L 48 L 44 L Respiratory Rate 14 Blood Pressure 92/48 L Pulse Oximetry 96 Oxygen Delivery 04/05/25 21:24 04/06/25 00:00 04/06/25 04:00 Temperature Pulse Rate 47 L 52 L Respiratory Rate Blood Pressure Pulse Oximetry Oxygen Delivery Room Air 04/06/25 04:28 04/06/25 08:00 Temperature 98 F Pulse Rate 55 L 53 L Respiratory Rate 16 Blood Pressure 128/58 L Pulse Oximetry 100 Oxygen Delivery Intake/Output Intake/Output: Intake & Output 04/03/25 04/04/25 04/05/25 04/06/25 23:59 23:59 23:59 23:59 Intake Total 1730 2620 540 Balance 1730 2620 540 Meds/Results Medications: Active Medications Generic Name Dose Route Start Last Admin Trade Name Freq PRN Reason Stop Dose Admin Acetaminophen 650 mg 04/04/25 21:43 04/06/25 09:39 Acetaminophen 325 Mg Tablet PO 650 mg Q4H PRN Administration Mild Pain (1-3) Or Fever Atenolol 25 mg 04/06/25 09:00 Atenolol 25 Mg Tablet PO DAILY LISANDRA Furosemide 40 mg 04/04/25 16:42 04/04/25 19:53 Furosemide Inj 40 Mg/4 Ml Vial IV PUSH 40 mg ONCE PRN Administration After 2nd blood transfusion Heparin Sodium (Porcine) 5,000 units 04/04/25 21:00 04/06/25 09:39 Heparin Sodium 5,000 Units/Ml Vial SUB-Q 5,000 units Q12HR LISANDRA Administration Ofloxacin 1 drop 04/04/25 23:40 04/06/25 09:39 Ofloxacin 0.3% Ophth Soln 5 Ml Btl AFFCTD EYE 1 drop QID LISANDRA Administration Ropinirole HCl 4 mg 04/04/25 21:43 Ropinirole Hcl 1 Mg Tablet PO HS PRN Restless Leg(S) Sodium Bicarbonate 1,300 mg 04/06/25 17:00 Sodium Bicarbonate Tab 650 Mg Tablet PO BID LISANDRA Sodium Bicarbonate 650 mg 04/06/25 13:00 Sodium Bicarbonate Tab 650 Mg Tablet PO 04/06/25 13:01 ONCE ONE Radiology Results: ITS Impressions Lumbar Spine CT 04/04/25 13:02 IMPRESSION: 1. Mild lumbar spondylosis with impingement at L4-5 posterior spinal fusion and stable appearance of multiple chronic lumbar and lower thoracic compression and burst fractures as detailed above. No acute osseous abnormality. 2. Bilateral total hip arthroplasties. No acute osseous abnormality in the pelvis or proximal femurs. Pelvis CT 04/04/25 13:02 IMPRESSION: 1. Mild lumbar spondylosis with impingement at L4-5 posterior spinal fusion and stable appearance of multiple chronic lumbar and lower thoracic compression and burst fractures as detailed above. No acute osseous abnormality. 2. Bilateral total hip arthroplasties. No acute osseous abnormality in the pelvis or proximal femurs. Head CT 04/04/25 22:04 Impression: No acute intracranial hemorrhage or suspicious mass effect. Renal Ultrasound 04/04/25 22:15 IMPRESSION: Limited evaluation secondary to poor acoustic penetration and patient positioning. Severe medical renal disease within the visualized atrophic left kidney. No left-sided hydronephrosis. Labs Labs: Laboratory Results - last 24 hr 04/05/25 04/05/25 04/05/25 10:36 16:40 17:26 WBC RBC Hgb Hct MCV MCH MCHC RDW Plt Count MPV Immature Gran % (Auto) Neut % (Auto) Lymph % (Auto) [place] % (Auto) Eos % (Auto) Baso % (Auto) Lymph # (Auto) [place] # (Auto) Eos # (Auto) Baso # (Auto) Abs Immat Gran (auto) Absolute Neuts (auto) Absolute Nucleated RBC Nucleated RBC % Sodium 136 L Potassium 4.2 Chloride 113 H Carbon Dioxide 14 L Anion Gap 9 BUN 48 H Creatinine 4.18 H Estim Creat Clear Calc 5 Estimated GFR 11 L Glucose 70 Calcium 7.8 L Magnesium Total Bilirubin AST ALT Alkaline Phosphatase Total Protein Albumin Urine Eosinophils None seen Stl Occult Blood (IFOB) Negative 04/06/25 04:52 WBC 8.0 RBC 4.22 Hgb 10.8 L Hct 34.9 L MCV 82.7 MCH 25.6 L MCHC 30.9 L RDW 18.6 H Plt Count 282 MPV 8.5 Immature Gran % (Auto) 0.3 Neut % (Auto) 71.1 Lymph % (Auto) 16.1 L [place] % (Auto) 5.0 Eos % (Auto) 7.2 H Baso % (Auto) 0.3 Lymph # (Auto) 1.28 [place] # (Auto) 0.4 Eos # (Auto) 0.6 H Baso # (Auto) 0.0 Abs Immat Gran (auto) 0.02 Absolute Neuts (auto) 5.7 Absolute Nucleated RBC 0.000 Nucleated RBC % 0.0 Sodium 138 Potassium 4.5 Chloride 114 H Carbon Dioxide 15 L Anion Gap 9 BUN 50 H Creatinine 4.40 H Estim Creat Clear Calc 5 Estimated GFR 10 L Glucose 75 Calcium 8.0 L Magnesium 1.8 Total Bilirubin 0.4 AST 33 ALT 11 Alkaline Phosphatase 182 H Total Protein 7.0 Albumin 2.6 L Urine Eosinophils Stl Occult Blood (IFOB) Quality VTE Prophylaxis VTE prophylaxis: pharmacologic ordered
--- NOTE | 2025-04-06 10:21 | PC.NURSE ---
RN did not give patient atenolol this morning due to such bradycardia yesterday, 04/05/25, and overnight. Spoke to Catalina SALCEDO today about it and got the OK from her. Also spoke to concrete pipe maker and kimberley
--- NOTE | 2025-04-06 10:26 | PC.NURSE ---
RN did not give patient atenolol this morning due to bradycardia yesterday, 04/05/25, and this morning, 04/06/25. Spoke to MATIAS Arnold this morning and was told was that OK. Also spoke to system support administrator yesterday and was told it was OK to wait for them to see her prior to medication administration.
--- NOTE | 2025-04-06 12:49 | PM.PNNEP ---
Progress Note: A&P Assessment and Plan (1) Acute kidney injury: Code(s): N17.9 - Acute kidney failure, unspecified Status: Acute Assessment and Plan: no improvement noted significant decline as noted by admission labs acute versus acute on chronic versus chronic?? -- suspect the latter two options... only previous labs available are from July 2023 -- creatinine normal at that time evaluation to date noted: renal ultrasound with small atrophic left kidney; unable to visualize right kidney due patient's contracted state urine eosinophils negative normal CPK nephrotic range proteinuria urine electrolytes prerenal surprisingly, no critical electrolytes noted and stable volume status although she does have a metabolic acidosis evidence would seem to indicate a chronic component of disease present... check serological studies for completeness however, if her renal function does not improve, she remains at risk for AUDIO/VISUAL OPERATOR/dialysis in the near future no need for urgent AUDIO/VISUAL OPERATOR/dialysis at this time... follow trend of repeat labs and UOP (2) Anemia: Qualifiers: Anemia type: unspecified type Qualified Code(s): D64.9 - Anemia, unspecified Code(s): D64.9 - Anemia, unspecified Status: Acute Assessment and Plan: quite severe on presenation s/p PRBC transfusion with improvement in H/H no evidence of GI bleed (hemoccult negative) suspect related to severe renal insufficiency suspect will need outpatient ADRIENNE follow trend of H/H (3) Ground-level fall: Code(s): W18.30XA - Fall on same level, unspecified, initial encounter Status: Acute Assessment and Plan: trauma workup negative. imaging to date without any acute injuries fall precautions PT/OT evaluation (4) Hyponatremia: Code(s): E87.1 - Hypo-osmolality and hyponatremia Status: Acute Assessment and Plan: resolved as noted on admission appears to have a chronic component likely exacerbated by renal dysfunction follow trend of sodium (5) Hypertension: Qualifiers: Hypertension type: unspecified Qualified Code(s): I10 - Essential (primary) hypertension Code(s): I10 - Essential (primary) hypertension Status: Chronic Assessment and Plan: reasonable control follow trend of hemodynamics (6) Ulcer of right knee: Code(s): L97.819 - Non-pressure chronic ulcer of other part of right lower leg with unspecified severity Status: Acute Assessment and Plan: chronic per patient no evidence of acute infection local wound care Long extensive discussion with the patient (> 20 minutes) regarding her severe renal dysfunction -- I voiced my concerns to her that her kidney function may not improve given evidence to date and there is a strong likelihood that she will require renal replacement therapy/dialysis in the near future. She adamantly told me that she would never agree to doing dialysis under any condition as she voiced understanding of what dialysis is. However, following that statement, she did state that she wants everything to be done (full code). I recommend discussing the patient's long-term goals of care and plan of therapy with her and her family as her statements regarding her medical care (wanting to be a full code but not wanting dialysis) are somewhat contradictory. Will continue to follow. Subjective Date/time seen: 04/06/25 12:49 Interval history: Follow-up for acute kidney injury/acute renal failure. No apparent distress noted at the time of my visit; issues with bradycardia overnight but seemingly asymptomatic when it occurred; renal function/creatinine has not really improved much since admission and apparently still making some urine; H/H stable following PRBC transfusion; asking me when she can go home when seen. Exam Narrative: General: elderly, frail and chronically ill appearing female in NAD Heart: normal S1 and S2; no rub Lungs: clear anteriorly Abdomen: soft, nontender, nondistended, positive bowel sounds Extremities: no cyanosis or clubbing; no edema; left AKA Skin: right knee dressings in place Objective Data Vital Signs Vital Signs: Vital Signs Temp Pulse Resp BP Pulse Ox O2 Del Method 04/06/25 12:00 98.4 F 109 H 20 93/40 L 95 04/06/25 10:21 55 L 04/06/25 09:50 Room Air 04/06/25 08:00 53 L 04/06/25 04:28 98 F 55 L 16 128/58 L 100 04/06/25 04:00 52 L 04/06/25 00:00 47 L 04/05/25 21:24 Room Air 04/05/25 20:00 44 L 04/05/25 19:54 97.7 F 48 L 14 92/48 L 96 04/05/25 17:07 42 L Intake/Output Intake/Output: Intake & Output 04/03/25 04/04/25 04/05/25 04/06/25 23:59 23:59 23:59 23:59 Intake Total 1730 2620 900 Balance 1730 2620 900 Meds/Results Medications: Active Medications Generic Name Dose Route Start Last Admin Trade Name Freq PRN Reason Stop Dose Admin Acetaminophen 650 mg 04/04/25 21:43 04/06/25 13:11 Acetaminophen 325 Mg Tablet PO 650 mg Q4H PRN Administration Mild Pain (1-3) Or Fever Atenolol 25 mg 04/06/25 09:00 04/06/25 10:21 Atenolol 25 Mg Tablet PO Not Given DAILY COUNT INCLUDES THE [facility] Furosemide 40 mg 04/04/25 16:42 04/04/25 19:53 Furosemide Inj 40 Mg/4 Ml Vial IV PUSH 40 mg ONCE PRN Administration After 2nd blood transfusion Heparin Sodium (Porcine) 5,000 units 04/04/25 21:00 04/06/25 09:39 Heparin Sodium 5,000 Units/Ml Vial SUB-Q 5,000 units Q12HR LISANDRA Administration Ofloxacin 1 drop 04/04/25 23:40 04/06/25 13:11 Ofloxacin 0.3% Ophth Soln 5 Ml Btl AFFCTD EYE 1 drop QID LISANDRA Administration Ropinirole HCl 4 mg 04/04/25 21:43 Ropinirole Hcl 1 Mg Tablet PO HS PRN Restless Leg(S) Sodium Bicarbonate 1,300 mg 04/06/25 17:00 Sodium Bicarbonate Tab 650 Mg Tablet PO BID COUNT INCLUDES THE [facility] Triamcinolone Acetonide 1 applic 04/06/25 10:10 04/06/25 13:11 Triamcinolone Acet 0.1% Cream 15 Gm Tube TOPICAL 1 applic Q12HR LISANDRA Administration Radiology Results: ITS Impressions Lumbar Spine CT 04/04/25 13:02 IMPRESSION: 1. Mild lumbar spondylosis with impingement at L4-5 posterior spinal fusion and stable appearance of multiple chronic lumbar and lower thoracic compression and burst fractures as detailed above. No acute osseous abnormality. 2. Bilateral total hip arthroplasties. No acute osseous abnormality in the pelvis or proximal femurs. Pelvis CT 04/04/25 13:02 IMPRESSION: 1. Mild lumbar spondylosis with impingement at L4-5 posterior spinal fusion and stable appearance of multiple chronic lumbar and lower thoracic compression and burst fractures as detailed above. No acute osseous abnormality. 2. Bilateral total hip arthroplasties. No acute osseous abnormality in the pelvis or proximal femurs. Head CT 04/04/25 22:04 Impression: No acute intracranial hemorrhage or suspicious mass effect. Renal Ultrasound 04/04/25 22:15 IMPRESSION: Limited evaluation secondary to poor acoustic penetration and patient positioning. Severe medical renal disease within the visualized atrophic left kidney. No left-sided hydronephrosis. Labs Labs: Laboratory Tests 04/06/25 04:52 04/06/25 04:52 Calcium 8.0 L Magnesium 1.8 Total Bilirubin 0.4 AST 33 ALT 11 Alkaline Phosphatase 182 H Total Protein 7.0 Albumin 2.6 L Microbiology 04/04/25 18:03 Urine Clean Catch Urine Culture Reflexed - Final
[2025-04-06] MEDS: TRIAMCINOLONE ACET 0.1% CREAM 15 GM TUBE 1 APPLIC TOPICAL ×2 (13:11→21:54)
--- NOTE | 2025-04-06 16:55 | P.CONCA_ITS ---
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 and hypertension presented with mechanical ground level fall admitted for severe anemia acute renal injury now found to have bradycardia Bradycardia -sinus in origin and would recommend discontinuing atenolol permanently Sinus pauses -she does have pauses that range in the 2.7-3.5 seconds -she is typically sleeping during these times and it would appear that she is very fatigued and lethargic -her current heart rate and the pulse is should not be causing her degree of fatigue -aside from permanently discontinuing atenolol, no further inpatient cardiac workup warranted Severe anemia -status post transfusion Cardiology will sign off. 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 Denies any loss of consciousness. Denies any chest pain and shortness of breath. She lives at home with her son who tries is best to help her in any way possible. However she is wheelchair bound. When she presented, she was severely anemic with hemoglobin in the range of 3.4 along with acute renal injury with a creatinine of 4.7. She was also found to have bradycardia along with pauses on her telemetry prompting further cardiac evaluation. Review of Systems 2 Cardiovascular: Cardiovascular: Reports as per HPI Respiratory: Respiratory: Reports as per HPI [facility] Past Medical History Medical History (Updated 04/05/25 @ 13:20 by Catalina Kraft APRN) Chronic anemia Hypertension Depression with anxiety Arthritis Anxiety Asthma Lymphedema of right lower extremity Surgical History Surgical History History of tubal ligation History of bilateral carpal tunnel release History of bilateral cataract extraction History of left above knee amputation History of bilateral knee replacement Left 2013 Right 2015. Family History Family History Mother Cancer Father Cancer Social History Social History (Reviewed 04/04/25 @ 16:27 by HASEEB Ling Social History: Surrogate medical decision maker: Trey Pickett, nat[place]. Code status: Full code. Smoking status: Never smoker Second hand tobacco smoke exposure: No Alcohol intake: never Substance use: never Substance use type: does not use Do You Feel Safe in your Home?: Yes Lack of Transportation: No Lack of Food: Never True Current Housing: I Have Housing Concerned About Future Housing: No Difficulty Paying Gas/Electric Bills: No Difficulty Paying for Meds: No Currently Unemployed: No Education: High School Diploma/GED Difficulty w/ Childcare or Family Care: No Additional living arrangements comments: . Lives with son in [place]. Spiritual care concerns: No Meds Home Medications and Allergies Home Medications ?Medication ?Instructions ?Recorded ?Confirmed ?Type ropinirole 4 mg tablet 4 mg PO HS PRN Restless Leg(S) 08/11/20 04/04/25 History atenolol 50 mg tablet (Tenormin) 50 mg PO DAILY 09/10/20 04/04/25 History acetaminophen 325 mg tablet (Mapap 650 mg (2 x 325 mg) PO Q4H PRN 07/02/23 04/04/25 Rx (acetaminophen)) Mild Pain (1-3) Or Fever #0 tabs silver 200 mcg/gram topical gel 1 applic topical DAILY 30 days #0 07/02/23 04/04/25 Rx (Silver-Sept) grams Allergies Allergy/AdvReac Type Severity Reaction Status Date / Time No Known Allergies Allergy Verified 04/04/25 11:37 Vital Signs Vital Signs - 24 hr 04/05/25 17:07 04/05/25 19:54 04/05/25 20:00 Temperature 36.5 C Pulse Rate 42 L 48 L 44 L Respiratory Rate 14 Blood Pressure 92/48 L Pulse Oximetry 96 Oxygen Delivery 04/05/25 21:24 04/06/25 00:00 04/06/25 04:00 Temperature Pulse Rate 47 L 52 L Respiratory Rate Blood Pressure Pulse Oximetry Oxygen Delivery Room Air 04/06/25 04:28 04/06/25 08:00 04/06/25 09:50 Temperature 36.6 C Pulse Rate 55 L 53 L Respiratory Rate 16 Blood Pressure 128/58 L Pulse Oximetry 100 Oxygen Delivery Room Air 04/06/25 10:21 04/06/25 12:00 04/06/25 14:00 Temperature 36.9 C Pulse Rate 55 L 61 109 H Respiratory Rate 20 Blood Pressure 93/40 L Pulse Oximetry 95 Oxygen Delivery 04/06/25 16:00 Temperature Pulse Rate 51 L Respiratory Rate Blood Pressure Pulse Oximetry Oxygen Delivery Exam 2 Const: Other: Ill-appearing and fatigue Eyes: Other: Will not open eyes Neck: Neck: no JVD Resp: Effort & Inspection: normal respiratory effort Auscultation: clear to auscultation bilaterally Cardio: Rate: bradycardic Rhythm: regular rhythm Results Labs and Meds 04/06/25 04:52 04/06/25 04:52 Lab results: Cardiac Enzymes 04/06/25 Range/Units 04:52 AST 33 (14-36) U/L CBC 04/06/25 Range/Units 04:52 WBC 8.0 (4.5-10.0) K/mm3 RBC 4.22 (4.2-5.4) M/mm3 Hgb 10.8 L (12.0-15.0) g/dL Hct 34.9 L (37.0-47.0) % Plt Count 282 (150-375) k/mm3 Lymph # (Auto) 1.28 (0.9-3.2) K/mm3 [place] # (Auto) 0.4 (0.1-0.6) K/mm3 Eos # (Auto) 0.6 H (0-0.3) K/mm3 Baso # (Auto) 0.0 (0.0-0.1) K/mm3 Comprehensive Metabolic Panel 04/05/25 04/06/25 Range/Units 17:26 04:52 Sodium 136 L 138 (137-145) mmol/L Potassium 4.2 4.5 (3.4-5.0) mmol/L Chloride 113 H 114 H (98-107) mmol/L Carbon Dioxide 14 L 15 L (22-30) mmol/L BUN 48 H 50 H (7-17) mg/dL Creatinine 4.18 H 4.40 H (0.7-1.0) mg/dL Glucose 70 75 (65-110) mg/dL Calcium 7.8 L 8.0 L (8.4-10.2) mg/dL AST 33 (14-36) U/L ALT 11 (6-35) U/L Alkaline Phosphatase 182 H (38-126) U/L Total Protein 7.0 (6.3-8.2) g/dL Albumin 2.6 L (3.5-5.1) g/dL Intake and Output 04/06/25 04/06/25 04/06/25 07:59 15:59 23:59 Intake Total 300 600 Balance 300 600 Intake: Oral 300 600 Other: # Unmeasured Voids 2 1 Number of Bowel Movements Today 1
[2025-04-06] MEDS: SODIUM BICARBONATE TAB 650 MG TABLET 1300 MG PO (16:56)
--- NOTE | 2025-04-06 17:01 | PC.NURSE ---
RN talked to Catalina SALCEDO about status of patient. Patient's BP is very soft and HR has been very bradycardic. Patient has been sleeping all day. Refused PT/OT. Not creating much urine.
--- NOTE | 2025-04-06 17:47 | PC.NURSE ---
RN poke to about BP and urine output. said patient's kidneys are not well and patient declined dialysis (if needed), but still wanted life saving support (if needed). Both RN and agreed about the concern of if IV fluids were started, patient's Hgb would tank. said he was not opposed to bolusing if needed, but only for the sake of BP.
[2025-04-06] MEDS: SODIUM CHLORIDE 0.9% IV 500 ML 100 ML IV CONT (18:47)
[2025-04-07] VITALS (14 sets, daily range): BP systolic 64–132; BP diastolic 35–70; PULSE 52–85; RESP 14–18; TEMP 36.3–38.1; O2SAT 97–100
[2025-04-07 04:58] LABS: Protein, Total 5.9 g/dL (6.1-8.1)
[2025-04-07 05:30] LABS: Basophils Percent Auto 0.2 % (0.2-1.2); Eosinophils Absolute Auto 0.3 K/mm3 (0-0.3); Eosinophils Percent Auto 3.8 % (0-4.4); Hematocrit 34.3 % (37.0-47.0); Hemoglobin 10.7 g/dL (12.0-15.0); Immature Granulocyte Absolute 0.06 K/mm3 (0.00-0.031); Immature Granulocyte Percent A 0.7 % (0-0.5); Lymphocytes Absolute Auto 0.59 K/mm3 (0.9-3.2); Lymphocytes Percent Auto 7.3 % (18.3-44.2); Mean Corpuscular HGB Conc 31.2 g/dl (32-36); Mean Corpuscular Hemoglobin 25.8 pg (26-34); Mean Corpuscular Volume 82.9 fl (80-100); Mean Platelet Volume 8.4 fl (7.4-10.4); Monocytes Absolute Auto 0.3 K/mm3 (0.1-0.6); Monocytes Percent Auto 3.2 % (2.6-8.5); Neutrophils Absolute Auto 6.9 K/mm3 (1.3-6.7); Neutrophils Percent Auto 84.8 % (45.5-73.1); Platelet Count Result 212 k/mm3 (150-375); Red Blood Count 4.14 M/mm3 (4.2-5.4); Red Cell Distribution Width 19.2 % (11.5-14.5); White Blood Count 8.1 K/mm3 (4.5-10.0)
[2025-04-07 05:48] LABS: Alanine Aminotransferase 12 U/L (6-35); Albumin Level 2.5 g/dL (3.5-5.1); Alkaline Phosphatase 178 U/L (38-126); Anion Gap 10 mmol/L (4-12); Aspartate Amino Transferase 30 U/L (14-36); Bilirubin,Total 0.4 mg/dL (0.2-1.3); Blood Urea Nitrogen 53 mg/dL (7-17); Calcium 7.7 mg/dL (8.4-10.2); Carbon Dioxide 12 mmol/L (22-30); Chloride 116 mmol/L (98-107); Estimated CRCL calculation 5 ml/min; Estimated Glomerular Filt Rate 9; Glucose 76 mg/dL (65-110); Magnesium 1.6 mg/dL (1.6-2.3); Potassium 4.2 mmol/L (3.4-5.0); Sodium 138 mmol/L (137-145)
--- NOTE | 2025-04-07 08:24 | PCPTNOTE ---
Attempted PT evaluation, Pt not willing to speak to therapist/refusing to open eyes. Pt's nurse made aware. Care coordination made aware.
[2025-04-07] MEDS: HEPARIN SODIUM 5,000 UNITS/ML VIAL 5000 UNITS SUB-Q ×2 (09:32→21:19)
[2025-04-07] MEDS: MAGNESIUM SULF 2 GM/WATER 50ML 2 GM/50 ML BAG IVPB (09:32)
[2025-04-07] MEDS: SODIUM BICARBONATE TAB 650 MG TABLET 1300 MG PO ×2 (09:32→17:25)
[2025-04-07] MEDS: TRIAMCINOLONE ACET 0.1% CREAM 15 GM TUBE 1 APPLIC TOPICAL ×2 (09:33→21:21)
[2025-04-07] MEDS: OFLOXACIN 0.3% OPHTH SOLN 5 ML BTL 1 DROP AFFCTD EYE ×4 (09:33→21:19)
--- NOTE | 2025-04-07 10:03 | PCOTNOTE ---
Pt is not appropriate for OT treatment due to poor alertness with 1 word mumbles intermittently, not responding to staff for medication or orientation questions, not able to hold up head requiring total assist. RN and hospitalist are present to continue assessing pt. Will attempt when pt is more alert and appropriate per poc duration/frequency.
--- NOTE | 2025-04-07 10:09 | P.PNIM_ITS ---
Progress Note: A&P Assessment and Plan (1) Anemia: Qualifiers: Anemia type: unspecified type Qualified Code(s): D64.9 - Anemia, unspecified Code(s): D64.9 - Anemia, unspecified Status: Acute Assessment and Plan: - acute on chronic - Hgb 3.4 (previously 12.4 in 2022), MCV and MCHC low - add iron, TIBC, ferritin, B12, folic acid, and TSH - transfuse if <7 plan for 3U PRBC on 04/04 with Lasix 40 mg after 2nd unit, post H&H 9.8/31.5. H&H today was 10.7/34.3 - trend H&H - stool occult negative - Iron 232. TIBC 268, % saturation 87. (2) Acute renal failure: Qualifiers: Acute renal failure type: unspecified Qualified Code(s): N17.9 - Acute kidney failure, unspecified Code(s): N17.9 - Acute kidney failure, unspecified Status: Acute Assessment and Plan: - creatinine 4.58 and GFR 9, previously 0.6 and GFR >60 in 2022 - renal ultrasound - add CK, urine sodium, protein/creatinine 4.64, urine creatinine 36.4, urea, serum osmolality and urine osmolality - check UA - bladder scan for postvoid residual - monitor I&Os - nephrology consultation, awaiting recs (3) Severe protein-calorie malnutrition: Code(s): E43 - Unspecified severe protein-calorie malnutrition Status: Acute Assessment and Plan: * weight 63 lb 4 oz. * Protein 7.0. * Business Law Teacher consult. * Nutritional ice cream TID. Regular diet. * TSH 2.820 (4) Ground-level fall: Code(s): W18.30XA - Fall on same level, unspecified, initial encounter Status: Acute Assessment and Plan: - trauma workup negative. Imaging included lumbar spine and pelvic CT. Initially denied head strike, however reporting right eye swelling post fall. Head CT negative. - fall precautions - PT/OT evaluation for discharge planning - care coordination for discharge planning (5) Hypertension: Qualifiers: Hypertension type: unspecified Qualified Code(s): I10 - Essential (primary) hypertension Code(s): I10 - Essential (primary) hypertension Status: Chronic Assessment and Plan: - Cardiology saw patient, Atenolol discontinued. - monitor (6) Ulcer of right knee: Code(s): L97.819 - Non-pressure chronic ulcer of other part of right lower leg with unspecified severity Status: Acute Assessment and Plan: * wound care consult, appreciate recommendations. * Silver gel and cover dressing daily. Dressing applied. (7) Bradycardia: Code(s): R00.1 - Bradycardia, unspecified Status: Acute Assessment and Plan: * Cardiology consulted, Atenolol discontinued. * Heart rate currently running in the 60's, 50's overnight. Plan Diet: Regular GI Prophylaxis: Not currently indicated DVT Prophylaxis: Heparin SQ IV fluids: None, currently receiving 3 blood transfusion Lines/Tubes: Peripheral IV Code Status: Full code Subjective Date/time seen: 04/07/25 10:09 Interval history: Nurse called in the morning stating patient was not answering there questions. Went to patient room. Patient occasionally would say a word when moved. Head CT was negative, blood sugar 85, lactic acid 0.9, temp 100.6 axillary, blood pressure 96/60. Blood cultures obtained, Tylenol suppository given, and Ceftriaxone 1 gram IVPB daily started. Blood gas: pH7.404, pC02 18.5, p022 105.3Chest X-ray: FINDINGS: The lungs are clear. Mild cardiomegaly. Elevated right diaphragm. There are no pleural effusions. There is no pneumothorax suspected. Generalized osteopenia. IMPRESSION: 1: No acute cardiopulmonary disease. Patient shortly after woke up. A&Ox3. Stated she wants everything done including CPR and intubation. Received a call this afternoon blood pressure 60/38. Patient denied dizziness but seemed tired. Spoke with Dr. Christian agreed to NS 500 ml bolus over an hour. Also discussed with [employer] P[employer] Dr. Titus that recommended giving patient an amp of sodium bicarbonate. BP recheck was 100/57. Review of Systems Review of Systems: All systems reviewed & are unremarkable except as noted in HPI and below Exam Resp: Effort & Inspection: normal respiratory effort Other: slightly diminished. Cardio: Rate: regular rate Rhythm: regular rhythm GI: GI Palp: Yes Soft to palpation Auscultation: normal bowel sounds Skin: Other: Rash to upper back. Chronic wound to right knee, dressing C/D/I. Extrem: General: no pedal edema Other: Left AKA Psych: Mental Status: mental status grossly normal Affect: normal affect Other: Drowsy and not answering morning. Alert and oriented this afternoon.. Objective Data Vital Signs Vital Signs: Vital Signs - 24 hr 04/06/25 10:21 04/06/25 12:00 04/06/25 14:00 Temperature 98.4 F Pulse Rate 55 L 61 109 H Respiratory Rate 20 Blood Pressure 93/40 L Pulse Oximetry 95 Oxygen Delivery Fraction of Inspired Oxygen 04/06/25 16:00 04/06/25 19:55 04/06/25 20:00 Temperature Pulse Rate 51 L 56 L 58 L Respiratory Rate Blood Pressure Pulse Oximetry 100 Oxygen Delivery Room Air Fraction of Inspired Oxygen 04/06/25 20:11 04/06/25 21:40 04/07/25 00:00 Temperature 97.6 F Pulse Rate 56 L 52 L Respiratory Rate 16 Blood Pressure 136/62 Pulse Oximetry 100 Oxygen Delivery Room Air Fraction of Inspired Oxygen 04/07/25 00:29 04/07/25 04:00 04/07/25 05:03 Temperature 97.3 F L 98 F Pulse Rate 64 77 68 Respiratory Rate 16 18 Blood Pressure 117/60 132/64 Pulse Oximetry 100 97 Oxygen Delivery Fraction of Inspired Oxygen Intake/Output Intake/Output: Intake & Output 04/04/25 04/05/25 04/06/25 04/07/25 23:59 23:59 23:59 23:59 Intake Total 1730 2620 1140 350 Output Total 300 450 Balance 1730 2620 840 -100 Meds/Results Medications: Active Medications Generic Name Dose Route Start Last Admin Trade Name Freq PRN Reason Stop Dose Admin Acetaminophen 650 mg 04/04/25 21:43 04/06/25 13:11 Acetaminophen 325 Mg Tablet PO 650 mg Q4H PRN Administration Mild Pain (1-3) Or Fever Furosemide 40 mg 04/04/25 16:42 04/04/25 19:53 Furosemide Inj 40 Mg/4 Ml Vial IV PUSH 40 mg ONCE PRN Administration After 2nd blood transfusion Heparin Sodium (Porcine) 5,000 units 04/04/25 21:00 04/07/25 09:32 Heparin Sodium 5,000 Units/Ml Vial SUB-Q 5,000 units Q12HR LISANDRA Administration Magnesium Sulfate 2 gm in 50 mls @ 25 mls/hr 04/07/25 08:27 04/07/25 09:32 Magnesium Sulf 2 Gm/Water 50ml IVPB 04/07/25 10:26 25 mls/hr ONCE ONE Administration Ofloxacin 1 drop 04/04/25 23:40 04/07/25 09:33 Ofloxacin 0.3% Ophth Soln 5 Ml Btl AFFCTD EYE 1 drop QID LISANDRA Administration Ropinirole HCl 4 mg 04/04/25 21:43 Ropinirole Hcl 1 Mg Tablet PO HS PRN Restless Leg(S) Sodium Bicarbonate 1,300 mg 04/06/25 17:00 04/07/25 09:32 Sodium Bicarbonate Tab 650 Mg Tablet PO 1,300 mg BID LISANDRA Administration Triamcinolone Acetonide 1 applic 04/06/25 10:10 04/07/25 09:33 Triamcinolone Acet 0.1% Cream 15 Gm Tube TOPICAL 1 applic Q12HR LISANDRA Administration Radiology Results: ITS Impressions Lumbar Spine CT 04/04/25 13:02 IMPRESSION: 1. Mild lumbar spondylosis with impingement at L4-5 posterior spinal fusion and stable appearance of multiple chronic lumbar and lower thoracic compression and burst fractures as detailed above. No acute osseous abnormality. 2. Bilateral total hip arthroplasties. No acute osseous abnormality in the pelvis or proximal femurs. Pelvis CT 04/04/25 13:02 IMPRESSION: 1. Mild lumbar spondylosis with impingement at L4-5 posterior spinal fusion and stable appearance of multiple chronic lumbar and lower thoracic compression and burst fractures as detailed above. No acute osseous abnormality. 2. Bilateral total hip arthroplasties. No acute osseous abnormality in the pelvis or proximal femurs. Head CT 04/04/25 22:04 Impression: No acute intracranial hemorrhage or suspicious mass effect. Renal Ultrasound 04/04/25 22:15 IMPRESSION: Limited evaluation secondary to poor acoustic penetration and patient positioning. Severe medical renal disease within the visualized atrophic left kidney. No left-sided hydronephrosis. Labs Labs: Laboratory Results - last 24 hr 04/05/25 04/07/25 05:57 04:52 WBC 8.1 RBC 4.14 L Hgb 10.7 L Hct 34.3 L MCV 82.9 MCH 25.8 L MCHC 31.2 L RDW 19.2 H Plt Count 212 MPV 8.4 Immature Gran % (Auto) 0.7 H Neut % (Auto) 84.8 H Lymph % (Auto) 7.3 L Coke % (Auto) 3.2 Eos % (Auto) 3.8 Baso % (Auto) 0.2 Lymph # (Auto) 0.59 L Coke # (Auto) 0.3 Eos # (Auto) 0.3 Baso # (Auto) 0.0 Abs Immat Gran (auto) 0.06 H Absolute Neuts (auto) 6.9 H Absolute Nucleated RBC 0.000 Nucleated RBC % 0.0 Sodium 138 Potassium 4.2 Chloride 116 H Carbon Dioxide 12 L Anion Gap 10 BUN 53 H Creatinine 4.58 H Estim Creat Clear Calc 5 Estimated GFR 9 L Glucose 76 Calcium 7.7 L Magnesium 1.6 Total Bilirubin 0.4 AST 30 ALT 12 Alkaline Phosphatase 178 H Total Protein 5.9 L 7.0 Albumin 2.5 L Quality VTE Prophylaxis VTE prophylaxis: pharmacologic ordered
[2025-04-07] MEDS: ACETAMINOPHEN 650 MG SUPPOSITORY RECTAL (10:21)
[2025-04-07 11:08] LABS: Glucose Point of Care 85 mg/dl (65-105)
[2025-04-07 11:10] LABS: Lactic Acid Reflex 0.9 mmol/L (0.7-2.0)
[2025-04-07 11:51] LABS: Alveolar/Arterial O2 Gradient 22.3 mmHg; Base Excess ABG -11.3 mEq/l (+/-2.0); Fractional Inspired Oxygen 21 %; HCO3 ABG 11.3 mEq/l (22.0-26.0); Oxygen Content ABG 15.4 %vol (16.0-22.0); Oxyhemoglobin 97.9 % THb (90.0-100.0); PO2 ABG 105.3 mmHg (80.0-100.0); PO2 FiO2 Ratio Arterial Blood 5.01 %; Total Hemoglobin 11.1 g/dL (12.0-18.0); pH ABG 7.404 (7.350-7.450)
[2025-04-07 11:52] LABS: Device ROOM AIR; Modified Allen's Test Pass; PCO2 ABG 18.5 mmHg (35.0-45.0); Site Drawn LEFT RADIAL
--- NOTE | 2025-04-07 12:31 | P.PNNP_ITS ---
Progress Note: A&P Assessment and Plan (1) Acute kidney injury: Code(s): N17.9 - Acute kidney failure, unspecified Status: Acute Assessment and Plan: * no improvement noted (if not some worsening) * significant decline as noted by admission labs * acute versus acute on chronic versus chronic?? -- suspect the latter... * only previous labs available are from July 2023 -- creatinine normal at that time * evaluation to date noted: * renal ultrasound with small atrophic left kidney; unable to visualize right kidney due patient's contracted state * urine eosinophils negative * normal CPK * nephrotic range proteinuria * urine electrolytes prerenal * surprisingly, no critical electrolytes noted and stable volume status although she does have a metabolic acidosis * evidence would seem to indicate a chronic component of disease present... * check serological studies for completeness * if her renal function does not improve, she remains at risk for CHAPLAIN RESIDENT/dialysis in the near future * however, no need for urgent CHAPLAIN RESIDENT/dialysis at this time... * follow trend of repeat labs and UOP (2) Anemia: Qualifiers: Anemia type: unspecified type Qualified Code(s): D64.9 - Anemia, unspecified Code(s): D64.9 - Anemia, unspecified Status: Acute Assessment and Plan: * quite severe on presenation * s/p PRBC transfusion with improvement in H/H * no evidence of GI bleed (hemoccult negative) * suspect related to severe renal insufficiency * suspect will need outpatient ADRIENNE * follow trend of H/H (3) Ground-level fall: Code(s): W18.30XA - Fall on same level, unspecified, initial encounter Status: Acute Assessment and Plan: * trauma workup negative * imaging to date without any acute injuries * fall precautions * PT/OT evaluation (4) Metabolic acidosis: Code(s): E87.20 - Acidosis, unspecified Status: Acute Assessment and Plan: * due to renal dysfunction possibly worsened by normal saline IVFs * continue oral sodium bicarbonate * gentle infusion of bicarb fluids (for a total of 500cc) (5) Bradycardia: Code(s): R00.1 - Bradycardia, unspecified Status: Acute Assessment and Plan: * Cardiology recommendations noted * atenolol discontinued * follow heart rate (6) Hyponatremia: Code(s): E87.1 - Hypo-osmolality and hyponatremia Status: Resolved Assessment and Plan: * resolved * as noted on admission * appears to have a chronic component * likely exacerbated by renal dysfunction * follow trend of sodium (7) Hypertension: Qualifiers: Hypertension type: unspecified Qualified Code(s): I10 - Essential (primary) hypertension Code(s): I10 - Essential (primary) hypertension Status: Chronic Assessment and Plan: * reasonable control * however, has had bouts of hypotension as well * atenolol discontinued per Cardiology recommendations * follow trend of hemodynamics (8) Ulcer of right knee: Code(s): L97.819 - Non-pressure chronic ulcer of other part of right lower leg with unspecified severity Status: Acute Assessment and Plan: * chronic per patient * no evidence of acute infection * local wound care I have attempted to contact her son today to discuss the issue of the patient's renal failure and the possible need for dialysis but I have been unsuccessful. Although dialysis is an option, I do not think she would tolerated such an intervention given her frail/deconditioned status and I do not really think it will improve her quality of life -- furthermore, she has repeatedly told me that she would not do dialysis as a treatment option. Will continue to follow. L Subjective Date/time seen: 04/07/25 12:31 Interval history: Follow-up for acute kidney injury/acute renal failure (vs. CARL on CKD vs. chronic kidney disease). Altered mental status noted earlier this morning -- poor responsiveness (to questions and medication administration by nursing and therapy) and disoriented with mumbling of words; low grade fever noted as well; stat head CT and CXR done with no acute pathology noted; ABG with preserved pH but noted low CO2 level; lactic acid normal; started on bicarb fluids in an effort to compensate for metabolic acidosis; by the time of my visit, her mental status seemed to have returned to baseline. Exam 2 Narrative: General: elderly, frail and chronically ill appearing female in NAD Heart: normal S1 and S2; no rub Lungs: clear anteriorly Abdomen: soft, nontender, nondistended, positive bowel sounds Extremities: no cyanosis or clubbing; no edema; left AKA Skin: right knee dressings present Objective Data Vital Signs Vital Signs: Vital Signs Temp Pulse Resp BP Pulse Ox O2 Del Method FiO2 04/07/25 10:21 96/60 L 04/07/25 10:21 100.6 F H 04/07/25 05:03 98 F 68 18 132/64 97 04/07/25 04:00 77 04/07/25 00:29 97.3 F L 64 16 117/60 100 04/07/25 00:00 52 L 04/06/25 21:40 Room Air 04/06/25 20:11 97.6 F 56 L 16 136/62 100 04/06/25 20:00 58 L 04/06/25 19:55 56 L 100 Room Air 21 04/06/25 16:00 51 L Intake/Output Intake/Output: Intake & Output 04/04/25 04/05/25 04/06/25 04/07/25 23:59 23:59 23:59 23:59 Intake Total 1730 2620 1140 590 Output Total 300 450 Balance 1730 2620 840 140 Meds/Results Medications: Active Medications Generic Name Dose Route Start Last Admin Trade Name Freq PRN Reason Stop Dose Admin Acetaminophen 650 mg 04/04/25 21:43 04/06/25 13:11 Acetaminophen 325 Mg Tablet PO 650 mg Q4H PRN Administration Mild Pain (1-3) Or Fever Acetaminophen 650 mg 04/07/25 10:12 04/07/25 10:21 Acetaminophen 650 Mg Suppository RECTAL 650 mg Q6H PRN Administration Mild Pain (1-3) or Fever Furosemide 40 mg 04/04/25 16:42 04/04/25 19:53 Furosemide Inj 40 Mg/4 Ml Vial IV PUSH 40 mg ONCE PRN Administration After 2nd blood transfusion Heparin Sodium (Porcine) 5,000 units 04/04/25 21:00 04/07/25 09:32 Heparin Sodium 5,000 Units/Ml Vial SUB-Q 5,000 units Q12HR LISANDRA Administration Ceftriaxone Sodium 1 gm in 50 mls @ 100 mls/hr 04/07/25 10:20 04/07/25 11:02 Rocephin 1 Gm/Ns 50 Ml IVPB 100 mls/hr QAM LISANDRA Administration Sodium Bicarbonate 75 meq/ 1,075 mls @ 50 mls/hr 04/07/25 12:15 04/07/25 13:05 Sodium Chloride IV CONT 04/07/25 22:14 50 mls/hr .[id number] LISANDRA Administration Ofloxacin 1 drop 04/04/25 23:40 04/07/25 13:09 Ofloxacin 0.3% Ophth Soln 5 Ml Btl AFFCTD EYE 1 drop QID LISANDRA Administration Ropinirole HCl 4 mg 04/04/25 21:43 Ropinirole Hcl 1 Mg Tablet PO HS PRN Restless Leg(S) Sodium Bicarbonate 1,300 mg 04/06/25 17:00 04/07/25 09:32 Sodium Bicarbonate Tab 650 Mg Tablet PO 1,300 mg BID LISANDRA Administration Triamcinolone Acetonide 1 applic 04/06/25 10:10 04/07/25 09:33 Triamcinolone Acet 0.1% Cream 15 Gm Tube TOPICAL 1 applic Q12HR LISANDRA Administration Radiology Results: ITS Impressions Lumbar Spine CT 04/04/25 13:02 IMPRESSION: 1. Mild lumbar spondylosis with impingement at L4-5 posterior spinal fusion and stable appearance of multiple chronic lumbar and lower thoracic compression and burst fractures as detailed above. No acute osseous abnormality. 2. Bilateral total hip arthroplasties. No acute osseous abnormality in the pelvis or proximal femurs. Pelvis CT 04/04/25 13:02 IMPRESSION: 1. Mild lumbar spondylosis with impingement at L4-5 posterior spinal fusion and stable appearance of multiple chronic lumbar and lower thoracic compression and burst fractures as detailed above. No acute osseous abnormality. 2. Bilateral total hip arthroplasties. No acute osseous abnormality in the pelvis or proximal femurs. Renal Ultrasound 04/04/25 22:15 IMPRESSION: Limited evaluation secondary to poor acoustic penetration and patient positioning. Severe medical renal disease within the visualized atrophic left kidney. No left-sided hydronephrosis. Chest X-Ray 04/07/25 11:03 IMPRESSION: 1: NO ACUTE CARDIOPULMONARY DISEASE. Head CT 04/07/25 12:12 Impression: No large acute intracranial hemorrhage or suspicious significant mass effect. Labs Labs: Laboratory Tests 04/07/25 04:52 04/07/25 04:52 Calcium 7.7 L Magnesium 1.6 Total Bilirubin 0.4 AST 30 ALT 12 Alkaline Phosphatase 178 H Total Protein 7.0 Albumin 2.5 L
[2025-04-07] MEDS: SODIUM BICARBONATE 8.4% 75 MEQ in SODIUM CHLORIDE 0.45% 1,000 ML 50 MEQ IV CONT (13:05)
[2025-04-07] MEDS: SODIUM CHLORIDE 0.9% IV 500 ML IV CONT (13:37)
[2025-04-07] MEDS: SODIUM BICARBONATE 8.4% 50 MEQ/50 ML SYRINGE IV PUSH (13:50)
[2025-04-07] MEDS: rOPINIRole HCL 1 MG TABLET 4 MG PO (21:19)
[2025-04-08] VITALS (10 sets, daily range): BP systolic 112–145; BP diastolic 68–71; PULSE 50–88; RESP 16–20; TEMP 35.8–37; O2SAT 98–100
[2025-04-08 05:44] LABS: Basophils Percent Auto 0.3 % (0.2-1.2); Eosinophils Absolute Auto 0.2 K/mm3 (0-0.3); Eosinophils Percent Auto 2.4 % (0-4.4); Hematocrit 32.7 % (37.0-47.0); Hemoglobin 10.1 g/dL (12.0-15.0); Immature Granulocyte Absolute 0.03 K/mm3 (0.00-0.031); Immature Granulocyte Percent A 0.5 % (0-0.5); Lymphocytes Absolute Auto 0.91 K/mm3 (0.9-3.2); Lymphocytes Percent Auto 14.8 % (18.3-44.2); Mean Corpuscular HGB Conc 30.9 g/dl (32-36); Mean Corpuscular Hemoglobin 25.9 pg (26-34); Mean Corpuscular Volume 83.8 fl (80-100); Mean Platelet Volume 8.4 fl (7.4-10.4); Monocytes Absolute Auto 0.4 K/mm3 (0.1-0.6); Monocytes Percent Auto 5.7 % (2.6-8.5); Neutrophils Absolute Auto 4.7 K/mm3 (1.3-6.7); Neutrophils Percent Auto 76.3 % (45.5-73.1); Platelet Count Result 187 k/mm3 (150-375); Red Cell Distribution Width 19.6 % (11.5-14.5); White Blood Count 6.1 K/mm3 (4.5-10.0)
[2025-04-08 05:54] LABS: Alanine Aminotransferase 15 U/L (6-35); Albumin Level 2.4 g/dL (3.5-5.1); Alkaline Phosphatase 192 U/L (38-126); Anion Gap 8 mmol/L (4-12); Aspartate Amino Transferase 49 U/L (14-36); Bilirubin,Total 0.4 mg/dL (0.2-1.3); Blood Urea Nitrogen 53 mg/dL (7-17); Calcium 7.5 mg/dL (8.4-10.2); Carbon Dioxide 16 mmol/L (22-30); Chloride 112 mmol/L (98-107); Estimated CRCL calculation 5 ml/min; Estimated Glomerular Filt Rate 9; Glucose 84 mg/dL (65-110); Magnesium 2.2 mg/dL (1.6-2.3); Potassium 3.6 mmol/L (3.4-5.0); Sodium 136 mmol/L (137-145)
[2025-04-08 05:58] LABS: Complement C3 92 mg/dL (88-165)
[2025-04-08 06:23] LABS: Hepatitis B Surface Antigen Negative (Negative)
[2025-04-08] MEDS: HEPARIN SODIUM 5,000 UNITS/ML VIAL 5000 UNITS SUB-Q ×2 (08:30→20:48)
[2025-04-08] MEDS: OFLOXACIN 0.3% OPHTH SOLN 5 ML BTL 1 DROP AFFCTD EYE ×4 (08:31→20:49)
[2025-04-08] MEDS: SODIUM BICARBONATE TAB 650 MG TABLET 1300 MG PO ×3 (08:31→17:15)
[2025-04-08] MEDS: TRIAMCINOLONE ACET 0.1% CREAM 15 GM TUBE 1 APPLIC TOPICAL ×2 (08:32→20:49)
[2025-04-08 09:12] LABS: Hepatitis B Surface Anti Res Indeterminate
[2025-04-08] MEDS: cefTRIAXone 2 GM/NS 100 ML 2 GM/100 ML BAG IVPB (09:43)
[2025-04-08] MEDS: DOXYCYCLINE 100 MG/NS 100 ML 100 MG/100 ML BAG IVPB (10:31)
--- NOTE | 2025-04-08 11:02 | P.PNIM_ITS ---
Progress Note: A&P Assessment and Plan (1) Anemia: Qualifiers: Anemia type: unspecified type Qualified Code(s): D64.9 - Anemia, unspecified Code(s): D64.9 - Anemia, unspecified Status: Acute Assessment and Plan: - acute on chronic - Hgb 3.4 (previously 12.4 in 2022), MCV and MCHC low - add iron, TIBC, ferritin, B12, folic acid, and TSH - transfuse if <7 plan for 3U PRBC on 04/04 with Lasix 40 mg after 2nd unit, post H&H 9.8/31.5. H&H today was 10.1/32.7. - trend H&H - stool occult negative - Iron 232. TIBC 268, % saturation 87. (2) Metabolic acidosis: Code(s): E87.20 - Acidosis, unspecified Status: Acute Assessment and Plan: * pC02 18.5 on ABG 04/07/25. * Patient received an amp of sodium bicarbonate. * Carbon dioxide improved to 16 today from 12 today on CMP. * Sodium Bicarbonate 1,300 mg PO TID. (3) Acute renal failure: Qualifiers: Acute renal failure type: unspecified Qualified Code(s): N17.9 - Acute kidney failure, unspecified Code(s): N17.9 - Acute kidney failure, unspecified Status: Acute Assessment and Plan: - creatinine 4.58 and GFR 9, previously 0.6 and GFR >60 in 2022 - renal ultrasound - add CK, urine sodium, protein/creatinine 4.64, urine creatinine 36.4, urea, serum osmolality and urine osmolality - UA: urine color orange, cloudy, 3+ protein, trace glucose, 3+ blood, 1+ leukocytes, >100 RBC. - bladder scan for postvoid residual - monitor I&Os - nephrology consultation, awaiting recs (4) Severe protein-calorie malnutrition: Code(s): E43 - Unspecified severe protein-calorie malnutrition Status: Acute Assessment and Plan: * weight 63 lb 4 oz. * Protein 6.0. * Sample Display Preparer consult. * Nutritional ice cream TID. Regular diet. * TSH 2.820 (5) Ground-level fall: Code(s): W18.30XA - Fall on same level, unspecified, initial encounter Status: Acute Assessment and Plan: - trauma workup negative. Imaging included lumbar spine and pelvic CT. Initially denied head strike, however reporting right eye swelling post fall. Head CT negative. - fall precautions - PT/OT evaluation for discharge planning - care coordination for discharge planning (6) Ulcer of right knee: Code(s): L97.819 - Non-pressure chronic ulcer of other part of right lower leg with unspecified severity Status: Acute Assessment and Plan: * Wound care consult, appreciate recommendations. * Silver gel and cover dressing daily. Dressing applied. (7) Bradycardia: Code(s): R00.1 - Bradycardia, unspecified Status: Acute Assessment and Plan: * Cardiology consulted, Atenolol discontinued. * Telemetry-SB 54. (8) Hypertension: Qualifiers: Hypertension type: unspecified Qualified Code(s): I10 - Essential (primary) hypertension Code(s): I10 - Essential (primary) hypertension Status: Chronic Assessment and Plan: - Cardiology saw patient, Atenolol discontinued. - Blood pressure 112/68. - monitor Plan Diet: Regular GI Prophylaxis: Not currently indicated DVT Prophylaxis: Heparin SQ IV fluids: None, currently receiving 3 blood transfusion Lines/Tubes: Peripheral IV Code Status: Full code Subjective Date/time seen: 04/08/25 11:02 Interval history: Patient reports feeling better today. Patient continues to decline dialysis. Patient denies chest pain, palpitations, headache, dizziness, nausea, or vomiting. Review of Systems Review of Systems: All systems reviewed & are unremarkable except as noted in HPI and below Exam Const: General: comfortable and no acute distress Eyes: Other: Right upper and lower eyelid swelling and redness improving. Patient opening eye greater. Resp: Effort & Inspection: normal respiratory effort Auscultation: clear to auscultation bilaterally Cardio: Rate: bradycardic Rhythm: regular rhythm Other: Telemetry- sinus bradycardia 54. GI: GI Palp: Yes Soft to palpation Auscultation: normal bowel sounds Skin: Other: Rash to upper back. Chronic wound to right knee, dressing C/D/I. Neuro: Speech: normal speech Extrem: General: no pedal edema Psych: Mental Status: mental status grossly normal Affect: normal affect Objective Data Vital Signs Vital Signs: Vital Signs - 24 hr 04/07/25 12:00 04/07/25 13:19 04/07/25 14:00 Temperature 97.9 F 97.9 F Pulse Rate 63 63 Respiratory Rate 16 Blood Pressure 64/35 L Pulse Oximetry 100 Oxygen Delivery 04/07/25 14:45 04/07/25 16:00 04/07/25 17:39 Temperature Pulse Rate 55 L Respiratory Rate Blood Pressure 100/57 L 97/70 L Pulse Oximetry Oxygen Delivery 04/07/25 20:00 04/07/25 20:00 04/07/25 21:48 Temperature 97.6 F Pulse Rate 54 L 52 L Respiratory Rate 14 Blood Pressure 117/61 Pulse Oximetry 98 Oxygen Delivery Room Air 04/08/25 00:00 04/08/25 04:00 04/08/25 06:00 Temperature 98.6 F Pulse Rate 52 L 50 L 88 Respiratory Rate 16 Blood Pressure 112/68 Pulse Oximetry 100 Oxygen Delivery 04/08/25 08:05 04/08/25 08:45 Temperature Pulse Rate 56 L Respiratory Rate Blood Pressure Pulse Oximetry Oxygen Delivery Room Air Intake/Output Intake/Output: Intake & Output 04/05/25 04/06/25 04/07/25 04/08/25 23:59 23:59 23:59 23:59 Intake Total 2620 1140 1070 240 Output Total 300 850 600 Balance 2620 840 220 -360 Meds/Results Medications: Active Medications Generic Name Dose Route Start Last Admin Trade Name Freq PRN Reason Stop Dose Admin Acetaminophen 650 mg 04/04/25 21:43 04/06/25 13:11 Acetaminophen 325 Mg Tablet PO 650 mg Q4H PRN Administration Mild Pain (1-3) Or Fever Acetaminophen 650 mg 04/07/25 10:12 04/07/25 10:21 Acetaminophen 650 Mg Suppository RECTAL 650 mg Q6H PRN Administration Mild Pain (1-3) or Fever Doxycycline Hyclate 100 mg 04/08/25 21:00 Doxycycline Hyclate 100 Mg Tablet PO Q12HR LISANDRA Furosemide 40 mg 04/04/25 16:42 04/04/25 19:53 Furosemide Inj 40 Mg/4 Ml Vial IV PUSH 40 mg ONCE PRN Administration After 2nd blood transfusion Heparin Sodium (Porcine) 5,000 units 04/04/25 21:00 04/08/25 08:30 Heparin Sodium 5,000 Units/Ml Vial SUB-Q 5,000 units Q12HR LISANDRA Administration Ceftriaxone Sodium 2 gm in 100 mls @ 200 mls/hr 04/08/25 09:30 04/08/25 09:43 Rocephin 2 Gm/Ns 100 Ml IVPB 200 mls/hr DAILY LISANDRA Administration Doxycycline Hyclate 100 mg in 100 mls @ 100 mls/hr 04/08/25 10:30 04/08/25 10:31 Vibramycin 100 Mg/Ns 100 Ml IVPB 04/08/25 11:29 100 mls/hr Q12HR LISANDRA Administration Ofloxacin 1 drop 04/04/25 23:40 04/08/25 08:31 Ofloxacin 0.3% Ophth Soln 5 Ml Btl AFFCTD EYE 1 drop QID LISANDRA Administration Ropinirole HCl 4 mg 04/04/25 21:43 04/07/25 21:19 Ropinirole Hcl 1 Mg Tablet PO 4 mg HS PRN Administration Restless Leg(S) Sodium Bicarbonate 1,300 mg 04/08/25 09:00 04/08/25 08:31 Sodium Bicarbonate Tab 650 Mg Tablet PO 1,300 mg TID LISANDRA Administration Triamcinolone Acetonide 1 applic 04/06/25 10:10 04/08/25 08:32 Triamcinolone Acet 0.1% Cream 15 Gm Tube TOPICAL 1 applic Q12HR LISANDRA Administration Radiology Results: ITS Impressions Lumbar Spine CT 04/04/25 13:02 IMPRESSION: 1. Mild lumbar spondylosis with impingement at L4-5 posterior spinal fusion and stable appearance of multiple chronic lumbar and lower thoracic compression and burst fractures as detailed above. No acute osseous abnormality. 2. Bilateral total hip arthroplasties. No acute osseous abnormality in the p cristian or proximal femurs. Pelvis CT 04/04/25 13:02 IMPRESSION: 1. Mild lumbar spondylosis with impingement at L4-5 posterior spinal fusion and stable appearance of multiple chronic lumbar and lower thoracic compression and burst fractures as detailed above. No acute osseous abnormality. 2. Bilateral total hip arthroplasties. No acute osseous abnormality in the pelvis or proximal femurs. Renal Ultrasound 04/04/25 22:15 IMPRESSION: Limited evaluation secondary to poor acoustic penetration and patient positioning. Severe medical renal disease within the visualized atrophic left kidney. No left-sided hydronephrosis. Chest X-Ray 04/07/25 11:03 IMPRESSION: 1: NO ACUTE CARDIOPULMONARY DISEASE. Head CT 04/07/25 12:12 Impression: No large acute intracranial hemorrhage or suspicious significant mass effect. Labs Labs: Laboratory Results - last 24 hr 04/07/25 04/07/25 04/07/25 09:56 10:44 11:45 WBC RBC Hgb Hct MCV MCH MCHC RDW Plt Count MPV Immature Gran % (Auto) Neut % (Auto) Lymph % (Auto) [place] % (Auto) Eos % (Auto) Baso % (Auto) Lymph # (Auto) [place] # (Auto) Eos # (Auto) Baso # (Auto) Abs Immat Gran (auto) Absolute Neuts (auto) Absolute Nucleated RBC Nucleated RBC % Puncture Site Left radial ABG pH 7.404 ABG pCO2 18.5 L* ABG pO2 105.3 H ABG PO2/FiO2 Ratio 5.01 ABG HCO3 11.3 L ABG O2 Saturation 98.0 ABG O2 Content 15.4 L ABG Base Excess -11.3 A-a Gradient 22.3 Oxyhemoglobin 97.9 Total Hemoglobin 11.1 L O2 Delivery Device Room air O2 Liters/Min Not Reportable FiO2 21 Sodium Potassium Chloride Carbon Dioxide Anion Gap BUN Creatinine Estim Creat Clear Calc Estimated GFR Glucose POC Capillary Glucose 85 Lactic Acid 0.9 Calcium Magnesium Total Bilirubin AST ALT Alkaline Phosphatase Total Protein Albumin Complement C3 Complement C4 Hep Bs Antigen Hep Bs Antibody 04/08/25 05:33 WBC 6.1 RBC 3.90 L Hgb 10.1 L Hct 32.7 L MCV 83.8 MCH 25.9 L MCHC 30.9 L RDW 19.6 H Plt Count 187 MPV 8.4 Immature Gran % (Auto) 0.5 Neut % (Auto) 76.3 H Lymph % (Auto) 14.8 L [place] % (Auto) 5.7 Eos % (Auto) 2.4 Baso % (Auto) 0.3 Lymph # (Auto) 0.91 [place] # (Auto) 0.4 Eos # (Auto) 0.2 Baso # (Auto) 0.0 Abs Immat Gran (auto) 0.03 Absolute Neuts (auto) 4.7 Absolute Nucleated RBC 0.000 Nucleated RBC % 0.0 Puncture Site ABG pH ABG pCO2 ABG pO2 ABG PO2/FiO2 Ratio ABG HCO3 ABG O2 Saturation ABG O2 Content ABG Base Excess A-a Gradient Oxyhemoglobin Total Hemoglobin O2 Delivery Device O2 Liters/Min FiO2 Sodium 136 L Potassium 3.6 Chloride 112 H Carbon Dioxide 16 L Anion Gap 8 BUN 53 H Creatinine 4.58 H Estim Creat Clear Calc 5 Estimated GFR 9 L Glucose 84 POC Capillary Glucose Lactic Acid Calcium 7.5 L Magnesium 2.2 Total Bilirubin 0.4 AST 49 H ALT 15 Alkaline Phosphatase 192 H Total Protein 6.0 L Albumin 2.4 L Complement C3 92 Complement C4 22.0 Hep Bs Antigen Negative Hep Bs Antibody Indeterminate Quality VTE Prophylaxis VTE prophylaxis: pharmacologic ordered
--- NOTE | 2025-04-08 12:11 | P.PNNP_ITS ---
Progress Note: A&P Assessment and Plan (1) Acute kidney injury: Code(s): N17.9 - Acute kidney failure, unspecified Status: Acute Assessment and Plan: * no improvement noted * significant decline as noted by admission labs * acute versus acute on chronic versus chronic?? -- suspect the latter... * only previous labs available are from July 2023 -- creatinine normal at that time * evaluation to date noted: * renal ultrasound with small atrophic left kidney; unable to visualize right kidney due patient's contracted state * urine eosinophils negative * normal CPK * nephrotic range proteinuria * urine electrolytes prerenal * surprisingly, no critical electrolytes noted and stable volume status although she does have a metabolic acidosis * evidence would seem to indicate a chronic component of disease present... * check serological studies for completeness * if her renal function does not improve, she remains at risk for BREAK OUT WORKER/dialysis in the near future * however, no need for urgent BREAK OUT WORKER/dialysis at this time... * follow trend of repeat labs and UOP (2) Anemia: Qualifiers: Anemia type: unspecified type Qualified Code(s): D64.9 - Anemia, unspecified Code(s): D64.9 - Anemia, unspecified Status: Acute Assessment and Plan: * quite severe on presenation * s/p PRBC transfusion with improvement in H/H * no evidence of GI bleed (hemoccult negative) * suspect related to severe renal insufficiency * suspect will need outpatient ADRIENNE * follow trend of H/H (3) Ground-level fall: Code(s): W18.30XA - Fall on same level, unspecified, initial encounter Status: Acute Assessment and Plan: * trauma workup negative * imaging to date without any acute injuries * fall precautions * PT/OT evaluation (4) Metabolic acidosis: Code(s): E87.20 - Acidosis, unspecified Status: Acute Assessment and Plan: * due to renal dysfunction possibly worsened by normal saline IVFs * continue oral sodium bicarbonate * gentle infusion of bicarb fluids (for a total of 500cc) (5) Bradycardia: Code(s): R00.1 - Bradycardia, unspecified Status: Acute Assessment and Plan: * Cardiology recommendations noted * atenolol discontinued * follow heart rate (6) Hyponatremia: Code(s): E87.1 - Hypo-osmolality and hyponatremia Status: Resolved Assessment and Plan: * resolved * as noted on admission * appears to have a chronic component * likely exacerbated by renal dysfunction * follow trend of sodium (7) Hypertension: Qualifiers: Hypertension type: unspecified Qualified Code(s): I10 - Essential (primary) hypertension Code(s): I10 - Essential (primary) hypertension Status: Chronic Assessment and Plan: * reasonable control * however, has had bouts of hypotension as well * atenolol discontinued per Cardiology recommendations * follow trend of hemodynamics (8) Ulcer of right knee: Code(s): L97.819 - Non-pressure chronic ulcer of other part of right lower leg with unspecified severity Status: Acute Assessment and Plan: * chronic per patient * no evidence of acute infection * local wound care I have attempted to contact her son for the last few days to discuss the issue of the patient's renal failure and the possible need for dialysis but I have been unsuccessful. Although dialysis is an option, I do not think she would tolerate such an intervention given her frail/deconditioned state and I do not really think it will improve her quality of life -- furthermore, she has repeatedly told me that she would not do dialysis as a treatment option. Will continue to follow. L Subjective Date/time seen: 04/08/25 12:11 Interval history: Follow-up for acute kidney injury/acute renal failure (vs. CARL on CKD vs. chronic kidney disease). No apparent distress noted at this time; eating and drinking reasonably well; renal function/creatinine remains abnormal but relatively stable -- no critical electrolytes and volume status remains stable; metabolic acidosis doing better s/p bicarbonate fluids and oral sodium bicarbonate; H/H relatively stable as well since PRBC transfusion; no other acute complaints voiced at this time. Exam 2 Narrative: General: elderly, frail and chronically ill appearing female in NAD Heart: normal S1 and S2; no rub Lungs: clear anteriorly Abdomen: soft, nontender, nondistended, positive bowel sounds Extremities: no cyanosis or clubbing; no edema; left AKA Skin: right knee dressings noted Psych: Other: Vital Signs Temp Pulse Resp BP Pulse Ox O2 Del Method 04/08/25 12:05 57 L 04/08/25 08:45 Room Air 04/08/25 08:05 56 L 04/08/25 06:00 98.6 F 88 16 112/68 100 04/08/25 04:00 50 L 04/08/25 00:00 52 L 04/07/25 21:48 97.6 F 52 L 14 117/61 98 04/07/25 20:00 54 L 04/07/25 20:00 Room Air 04/07/25 17:39 97/70 L Objective Data Intake/Output Intake/Output: Intake & Output 04/05/25 04/06/25 04/07/25 04/08/25 23:59 23:59 23:59 23:59 Intake Total 2620 1140 1070 480 Output Total 300 850 600 Balance 2620 840 220 -120 Meds/Results Medications: Active Medications Generic Name Dose Route Start Last Admin Trade Name Freq PRN Reason Stop Dose Admin Acetaminophen 650 mg 04/04/25 21:43 04/06/25 13:11 Acetaminophen 325 Mg Tablet PO 650 mg Q4H PRN Administration Mild Pain (1-3) Or Fever Acetaminophen 650 mg 04/07/25 10:12 04/07/25 10:21 Acetaminophen 650 Mg Suppository RECTAL 650 mg Q6H PRN Administration Mild Pain (1-3) or Fever Doxycycline Hyclate 100 mg 04/08/25 21:00 Doxycycline Hyclate 100 Mg Tablet PO Q12HR LISANDRA Furosemide 40 mg 04/04/25 16:42 04/04/25 19:53 Furosemide Inj 40 Mg/4 Ml Vial IV PUSH 40 mg ONCE PRN Administration After 2nd blood transfusion Heparin Sodium (Porcine) 5,000 units 04/04/25 21:00 04/08/25 08:30 Heparin Sodium 5,000 Units/Ml Vial SUB-Q 5,000 units Q12HR LISANDRA Administration Ceftriaxone Sodium 2 gm in 100 mls @ 200 mls/hr 04/08/25 09:30 04/08/25 09:43 Rocephin 2 Gm/Ns 100 Ml IVPB 200 mls/hr DAILY LISANDRA Administration Ofloxacin 1 drop 04/04/25 23:40 04/08/25 13:55 Ofloxacin 0.3% Ophth Soln 5 Ml Btl AFFCTD EYE 1 drop QID LISANDRA Administration Ropinirole HCl 4 mg 04/04/25 21:43 04/07/25 21:19 Ropinirole Hcl 1 Mg Tablet PO 4 mg HS PRN Administration Restless Leg(S) Sodium Bicarbonate 1,300 mg 04/08/25 09:00 04/08/25 13:54 Sodium Bicarbonate Tab 650 Mg Tablet PO 1,300 mg TID LISANDRA Administration Triamcinolone Acetonide 1 applic 04/06/25 10:10 04/08/25 08:32 Triamcinolone Acet 0.1% Cream 15 Gm Tube TOPICAL 1 applic Q12HR LISANDRA Administration Radiology Results: ITS Impressions Lumbar Spine CT 04/04/25 13:02 IMPRESSION: 1. Mild lumbar spondylosis with impingement at L4-5 posterior spinal fusion and stable appearance of multiple chronic lumbar and lower thoracic compression and burst fractures as detailed above. No acute osseous abnormality. 2. Bilateral total hip arthroplasties. No acute osseous abnormality in the pelvis or proximal femurs. Pelvis CT 04/04/25 13:02 IMPRESSION: 1. Mild lumbar spondylosis with impingement at L4-5 posterior spinal fusion and stable appearance of multiple chronic lumbar and lower thoracic compression and burst fractures as detailed above. No acute osseous abnormality. 2. Bilateral total hip arthroplasties. No acute osseous abnormality in the pelvis or proximal femurs. Renal Ultrasound 04/04/25 22:15 IMPRESSION: Limited evaluation secondary to poor acoustic penetration and patient positioning. Severe medical renal disease within the visualized atrophic left kidney. No left-sided hydronephrosis. Chest X-Ray 04/07/25 11:03 IMPRESSION: 1: NO ACUTE CARDIOPULMONARY DISEASE. Head CT 04/07/25 12:12 Impression: No large acute intracranial hemorrhage or suspicious significant mass effect. Labs Labs: Laboratory Tests 04/08/25 05:33 04/08/25 05:33 Calcium 7.5 L Magnesium 2.2 Total Bilirubin 0.4 AST 49 H ALT 15 Alkaline Phosphatase 192 H Total Protein 6.0 L Albumin 2.4 L Microbiology 04/07/25 10:52 Blood Blood Culture - Preliminary 04/07/25 10:44 Blood Blood Culture - Preliminary
[2025-04-08 13:25] LABS: Bacteria Urine None Seen /hpf; Need Manual Microscopic Reviewed; Non Pathogenic Casts 0-2; RBC Urine >100 /hpf (0-2); Squamous Epithelial Cell Urine None Seen /hpf (Few); WBC Urine 0-5 /hpf (0-3)
[2025-04-08 13:40] LABS: Add Urine Microscopic? YES; Appearance Urine Cloudy (Clear); Bilirubin Urine Negative (Negative); Blood Urine 3+ (Negative); Color Urine Orange (Yellow); Glucose Urine UA Trace mg/dL (Negative); Ketones Urine Negative (Negative); Leukocyte Esterase Ur 1+ LEU/UL (Negative); Nitrate Urine Negative (Negative); Protein Urine 3+ mg/dL (Negative); Specific Grav Ur 1.015 (1.001-1.035); Urobilinogen Urine 0.2 mg/dL (<2.0); pH Urine 8.5 (5.0-9.0)
[2025-04-08] MEDS: DOXYCYCLINE HYCLATE 100 MG TABLET PO (20:48)
[2025-04-09] VITALS (11 sets, daily range): BP systolic 92–151; BP diastolic 39–77; PULSE 50–67; RESP 16–20; TEMP 35.8–36.9; O2SAT 98–100
[2025-04-09 05:55] LABS: Basophils Percent Auto 0.4 % (0.2-1.2); Eosinophils Absolute Auto 0.4 K/mm3 (0-0.3); Eosinophils Percent Auto 7.7 % (0-4.4); Hematocrit 30.8 % (37.0-47.0); Hemoglobin 9.5 g/dL (12.0-15.0); Immature Granulocyte Absolute 0.03 K/mm3 (0.00-0.031); Immature Granulocyte Percent A 0.5 % (0-0.5); Lymphocytes Absolute Auto 1.04 K/mm3 (0.9-3.2); Lymphocytes Percent Auto 18.3 % (18.3-44.2); Mean Corpuscular HGB Conc 30.8 g/dl (32-36); Mean Corpuscular Hemoglobin 25.3 pg (26-34); Mean Corpuscular Volume 82.1 fl (80-100); Monocytes Absolute Auto 0.4 K/mm3 (0.1-0.6); Monocytes Percent Auto 7.6 % (2.6-8.5); Neutrophils Absolute Auto 3.7 K/mm3 (1.3-6.7); Neutrophils Percent Auto 65.5 % (45.5-73.1); Platelet Count Result 182 k/mm3 (150-375); Red Blood Count 3.75 M/mm3 (4.2-5.4); Red Cell Distribution Width 19.8 % (11.5-14.5); White Blood Count 5.7 K/mm3 (4.5-10.0)
[2025-04-09 06:08] LABS: Alanine Aminotransferase 18 U/L (6-35); Albumin Level 2.2 g/dL (3.5-5.1); Alkaline Phosphatase 196 U/L (38-126); Anion Gap 9 mmol/L (4-12); Aspartate Amino Transferase 51 U/L (14-36); Bilirubin,Total 0.2 mg/dL (0.2-1.3); Blood Urea Nitrogen 54 mg/dL (7-17); Calcium 7.6 mg/dL (8.4-10.2); Carbon Dioxide 18 mmol/L (22-30); Chloride 110 mmol/L (98-107); Estimated CRCL calculation 5 ml/min; Estimated Glomerular Filt Rate 10; Glucose 78 mg/dL (65-110); Magnesium 2.1 mg/dL (1.6-2.3); Potassium 3.5 mmol/L (3.4-5.0); Sodium 137 mmol/L (137-145)
--- NOTE | 2025-04-09 09:32 | PC.NURSE ---
RN spoke to pharmacy about patient's weight. We believe the patient's weight was entered incorrectly.
[2025-04-09] MEDS: VANCOMYCIN 500 MG/NS 100 ML 500 MG/100 ML BAG 100 MG IVPB (09:52)
[2025-04-09] MEDS: ACETAMINOPHEN 325 MG TABLET 650 MG PO (09:53)
[2025-04-09] MEDS: HEPARIN SODIUM 5,000 UNITS/ML VIAL 5000 UNITS SUB-Q ×2 (09:53→20:29)
[2025-04-09] MEDS: SODIUM BICARBONATE TAB 650 MG TABLET 1300 MG PO ×3 (09:53→17:49)
[2025-04-09] MEDS: TRIAMCINOLONE ACET 0.1% CREAM 15 GM TUBE 1 APPLIC TOPICAL ×2 (09:54→20:30)
[2025-04-09] MEDS: OFLOXACIN 0.3% OPHTH SOLN 5 ML BTL 1 DROP AFFCTD EYE ×4 (09:54→20:30)
--- NOTE | 2025-04-09 10:51 | PCNFU ---
Nutrition Follow-Up Complete: Severe Protein Calorie Malnutrition as related to inadequate protein energy intake as evidenced by < 75% of EER for > 1 month, severe subcutaneous fat loss (orbital fat pads) and muscle wasting ( temporalis, clavicle) Meet estimated nutritional needs Goal: patient is not progressing towards goal. We will continue current goal. Pt current nutrition is Regular. Nutrition recommendation: diet supplement change from ensure enlive to ensure clear. Last recorded weight is 41 kg, spoke with nursing today for reweigh. Admit weight 28.7 kg . Bowel Motility: Last reported BM 04/08 Labs Reviewed: Cr 4.54, BUN 54, Alb 2.2, Hct 30.8, Hgb 9.5 Meds Noted: Rocephin, Sodium Bicarbonate. Skin: Left AKA Additional Notes: Patient remains on a regular diet with diet supplements. Spoke with Hospitalist today regarding oral intake-nursing is reporting 50% or less. Patient is refusing Dialysis. Orders for diet supplement change to ensure clear TID providing 240 kcal and 8 gm protein. PO intake encouraged. Will monitor weight, labs, skin, diet orders, meds every 3 days.
[2025-04-09 10:52] LABS: Lambda Light Chain 208.6 mg/L (5.7-26.3)
--- NOTE | 2025-04-09 10:58 | P.PNIM_ITS ---
Progress Note: A&P Assessment and Plan (1) Anemia: Qualifiers: Anemia type: unspecified type Qualified Code(s): D64.9 - Anemia, unspecified Code(s): D64.9 - Anemia, unspecified Status: Acute Assessment and Plan: - acute on chronic - Hgb 3.4 (previously 12.4 in 2022), MCV and MCHC low - add iron, TIBC, ferritin, B12, folic acid, and TSH - transfuse if <7 plan for 3U PRBC on 04/04 with Lasix 40 mg after 2nd unit, post H&H 9.8/31.5. H&H today was 9.5/30.8. - trend H&H - stool occult negative - Iron 232. TIBC 268, % saturation 87. (2) Metabolic acidosis: Code(s): E87.20 - Acidosis, unspecified Status: Acute Assessment and Plan: * pC02 18.5 on ABG 04/07/25. * Patient received an amp of sodium bicarbonate. * Carbon dioxide improved to 18 today from 12 today on CMP. * Sodium Bicarbonate 1,300 mg PO TID. (3) Positive blood cultures: Code(s): R78.81 - Bacteremia Status: Acute Assessment and Plan: * Blood cultures from 04/07 grew gram positive cocci in clusters. * Ceftriaxone 2 gram IVPB daily and Vancomycin 500 mg IVPB( Renally dose per pharmacy). * Urine culture pending. * Chest X-ray negative. (4) Acute renal failure: Qualifiers: Acute renal failure type: unspecified Qualified Code(s): N17.9 - Acute kidney failure, unspecified Code(s): N17.9 - Acute kidney failure, unspecified Status: Acute Assessment and Plan: - creatinine 4.54 and GFR 10, previously 0.6 and GFR >60 in 2022 - renal ultrasound - add CK, urine sodium, protein/creatinine 4.64, urine creatinine 36.4, urea, serum osmolality and urine osmolality - UA: urine color orange, cloudy, 3+ protein, trace glucose, 3+ blood, 1+ leukocytes, >100 RBC. - bladder scan for postvoid residual - monitor I&Os - nephrology consultation, appreciate recs (5) Severe protein-calorie malnutrition: Code(s): E43 - Unspecified severe protein-calorie malnutrition Status: Acute Assessment and Plan: * weight 63 lb 4 oz. * Protein 6.0. 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 * Nutritional ice cream TID. Regular diet. * TSH 2.820 (6) Ground-level fall: Code(s): W18.30XA - Fall on same level, unspecified, initial encounter Status: Acute Assessment and Plan: - trauma workup negative. Imaging included lumbar spine and pelvic CT. Initially denied head strike, however reporting right eye swelling post fall. Head CT negative. - fall precautions - PT/OT evaluation for discharge planning - care coordination for discharge planning (7) Ulcer of right knee: Code(s): L97.819 - Non-pressure chronic ulcer of other part of right lower leg with unspecified severity Status: Acute Assessment and Plan: * Wound care consult, appreciate recommendations. * Silver gel and cover dressing daily. Dressing applied. (8) Bradycardia: Code(s): R00.1 - Bradycardia, unspecified Status: Acute Assessment and Plan: * Cardiology consulted, Atenolol discontinued. * Telemetry-SB 54. (9) Hypertension: Qualifiers: Hypertension type: unspecified Qualified Code(s): I10 - Essential (primary) hypertension Code(s): I10 - Essential (primary) hypertension Status: Chronic Assessment and Plan: - Cardiology saw patient, Atenolol discontinued. - Blood pressure 95/44. - monitor Plan Diet: Regular GI Prophylaxis: Not currently indicated DVT Prophylaxis: Heparin SQ IV fluids: None, currently receiving 3 blood transfusion Lines/Tubes: Peripheral IV Code Status: Full code Subjective Date/time seen: 04/09/25 10:58 Interval history: Patient sitting up in bed. Patient denies chest pain, palpitations, headache, d izziness, nausea, or vomiting. Patient continues to decline dialysis but wants to be a full code and everything else done. Review of Systems Review of Systems: All systems reviewed & are unremarkable except as noted in HPI and below Exam Const: General: comfortable and no acute distress Eyes: Other: Right upper and lower eyelid swelling and redness improving. Patient opening eye greater. Resp: Effort & Inspection: normal respiratory effort Other: slightly diminished. Cardio: Rate: bradycardic Rhythm: regular rhythm Other: sinus neal 54 GI: GI Palp: Yes Soft to palpation Auscultation: normal bowel sounds Skin: Other: Rash to upper back improving, no drainage. Chronic wound to right knee, dressing C/D/I. Neuro: Speech: normal speech Extrem: General: no pedal edema Psych: Mental Status: mental status grossly normal Affect: normal affect Objective Data Vital Signs Vital Signs: Vital Signs - 24 hr 04/08/25 12:05 04/08/25 14:00 04/08/25 16:04 Temperature 97.5 F L Pulse Rate 57 L 51 L 56 L Respiratory Rate 20 Blood Pressure 131/68 Pulse Oximetry 100 Oxygen Delivery Fraction of Inspired Oxygen 04/08/25 20:00 04/08/25 20:00 04/08/25 20:59 Temperature Pulse Rate 57 L Respiratory Rate Blood Pressure Pulse Oximetry 98 Oxygen Delivery Room Air Room Air Fraction of Inspired Oxygen 21 04/08/25 21:12 04/09/25 00:00 04/09/25 04:00 Temperature 96.5 F L Pulse Rate 53 L 53 L 50 L Respiratory Rate 20 Blood Pressure 145/71 H Pulse Oximetry 99 Oxygen Delivery Fraction of Inspired Oxygen 04/09/25 05:41 04/09/25 08:00 04/09/25 09:54 Temperature 96.5 F L Pulse Rate 56 L 57 L Respiratory Rate 20 18 Blood Pressure 151/77 H 95/44 L Pulse Oximetry 100 100 Oxygen Delivery Room Air Fraction of Inspired Oxygen Intake/Output Intake/Output: Intake & Output 04/06/25 04/07/25 04/08/25 04/09/25 23:59 23:59 23:59 23:59 Intake Total 1140 1070 780 120 Output Total 300 850 700 700 Balance 840 220 80 -580 Meds/Results Medications: Active Medications Generic Name Dose Route Start Last Admin Trade Name Freq PRN Reason Stop Dose Admin Acetaminophen 650 mg 04/04/25 21:43 04/09/25 09:53 Acetaminophen 325 Mg Tablet PO 650 mg Q4H PRN Administration Mild Pain (1-3) Or Fever Acetaminophen 650 mg 04/07/25 10:12 04/07/25 10:21 Acetaminophen 650 Mg Suppository RECTAL 650 mg Q6H PRN Administration Mild Pain (1-3) or Fever Furosemide 40 mg 04/04/25 16:42 04/04/25 19:53 Furosemide Inj 40 Mg/4 Ml Vial IV PUSH 40 mg ONCE PRN Administration After 2nd blood transfusion Heparin Sodium (Porcine) 5,000 units 04/04/25 21:00 04/09/25 09:53 Heparin Sodium 5,000 Units/Ml Vial SUB-Q 5,000 units Q12HR LISANDRA Administration Ceftriaxone Sodium 2 gm in 100 mls @ 200 mls/hr 04/08/25 09:30 04/08/25 09:43 Rocephin 2 Gm/Ns 100 Ml IVPB 200 mls/hr DAILY LISANDRA Administration Ofloxacin 1 drop 04/04/25 23:40 04/09/25 09:54 Ofloxacin 0.3% Ophth Soln 5 Ml Btl AFFCTD EYE 1 drop QID LISANDRA Administration Ropinirole HCl 4 mg 04/04/25 21:43 04/07/25 21:19 Ropinirole Hcl 1 Mg Tablet PO 4 mg HS PRN Administration Restless Leg(S) Sodium Bicarbonate 1,300 mg 04/08/25 09:00 04/09/25 09:53 Sodium Bicarbonate Tab 650 Mg Tablet PO 1,300 mg TID LISANDRA Administration Triamcinolone Acetonide 1 applic 04/06/25 10:10 04/09/25 09:54 Triamcinolone Acet 0.1% Cream 15 Gm Tube TOPICAL 1 applic Q12HR LISANDRA Administration Vancomycin HCl 1 each 04/09/25 08:11 Vancomycin For Acute Kidney Injury IVPB PRN PRN Vancomycin Protocol Radiology Results: ITS Impressions Lumbar Spine CT 04/04/25 13:02 IMPRESSION: 1. Mild lumbar spondylosis with impingement at L4-5 posterior spinal fusion and stable appearance of multiple chronic lumbar and lower thoracic compression and burst fractures as detailed above. No acute osseous abnormality. 2. Bilateral total hip arthroplasties. No acute osseous abnormality in the pelvis or proximal femurs. Pelvis CT 04/04/25 13:02 IMPRESSION: 1. Mild lumbar spondylosis with impingement at L4-5 posterior spinal fusion and stable appearance of multiple chronic lumbar and lower thoracic compression and burst fractures as detailed above. No acute osseous abnormality. 2. Bilateral total hip arthroplasties. No acute osseous abnormality in the pelvis or proximal femurs. Renal Ultrasound 04/04/25 22:15 IMPRESSION: Limited evaluation secondary to poor acoustic penetration and patient positioning. Severe medical renal disease within the visualized atrophic left kidney. No left-sided hydronephrosis. Chest X-Ray 04/07/25 11:03 IMPRESSION: 1: NO ACUTE CARDIOPULMONARY DISEASE. Head CT 04/07/25 12:12 Impression: No large acute intracranial hemorrhage or suspicious significant mass effect. Labs Labs: Laboratory Results - last 24 hr 04/05/25 04/08/25 04/09/25 05:57 13:06 05:29 WBC 5.7 RBC 3.75 L Hgb 9.5 L Hct 30.8 L MCV 82.1 MCH 25.3 L MCHC 30.8 L RDW 19.8 H Plt Count 182 MPV 9.0 Immature Gran % (Auto) 0.5 Neut % (Auto) 65.5 Lymph % (Auto) 18.3 Long % (Auto) 7.6 Eos % (Auto) 7.7 H Baso % (Auto) 0.4 Lymph # (Auto) 1.04 Long # (Auto) 0.4 Eos # (Auto) 0.4 H Baso # (Auto) 0.0 Abs Immat Gran (auto) 0.03 Absolute Neuts (auto) 3.7 Absolute Nucleated RBC 0.000 Nucleated RBC % 0.0 Sodium 137 Potassium 3.5 Chloride 110 H Carbon Dioxide 18 L Anion Gap 9 BUN 54 H Creatinine 4.54 H Estim Creat Clear Calc 5 Estimated GFR 10 L Glucose 78 Calcium 7.6 L Magnesium 2.1 Total Bilirubin 0.2 AST 51 H ALT 18 Alkaline Phosphatase 196 H Total Protein 6.0 L Albumin 2.2 L Urine Color [place] H Urine Appearance Cloudy H Urine pH 8.5 Ur Specific [place] 1.015 Urine Protein 3+ H Urine Glucose (UA) Trace H Urine Ketones Negative Ur Blood (Man) 3+ H Urine Nitrate Negative Urine Bilirubin Negative Urine Urobilinogen 0.2 Add Ur Microanalysis Reviewed Leukocyte Esterase Rfl 1+ H Urine RBC >100 H Urine WBC 0-5 Ur Squamous Epith Cells None seen Urine Bacteria None seen Urine Casts 0-2 [place]/Lambda Ratio 1.00 Free [place] Light Chains 208.3 H Free [place] Light Chain 208.6 H Quality VTE Prophylaxis VTE prophylaxis: pharmacologic ordered
--- NOTE | 2025-04-09 11:20 | P.PNNP_ITS ---
Progress Note: A&P Assessment and Plan (1) Acute kidney injury: Code(s): N17.9 - Acute kidney failure, unspecified Status: Acute Assessment and Plan: * no improvement noted (but relatively stable) * significant decline as noted by admission labs * acute versus acute on chronic versus chronic?? -- suspect the latter... * only previous labs available are from July 2023 -- creatinine normal at that time * evaluation to date noted: * renal ultrasound with small atrophic left kidney; unable to visualize right kidney due patient's contracted state * urine eosinophils negative * normal CPK * nephrotic range proteinuria * urine electrolytes prerenal * surprisingly, no critical electrolytes noted and stable volume status although she does have a metabolic acidosis * evidence would seem to indicate a chronic component of disease present... * serologies pending * if her renal function does not improve, she remains at risk for ALTERATIONS TAILOR/dialysis in the near future * however, no need for urgent ALTERATIONS TAILOR/dialysis at this time...stable electrolytes, improving acidosis, and no evidence of volume overload or uremia * follow trend of repeat labs and UOP (2) Anemia: Qualifiers: Anemia type: unspecified type Qualified Code(s): D64.9 - Anemia, unspecified Code(s): D64.9 - Anemia, unspecified Status: Acute Assessment and Plan: * quite severe on presenation * s/p PRBC transfusion with improvement in H/H * no evidence of GI bleed (hemoccult negative) * suspect related to severe renal insufficiency * suspect will need outpatient ADRIENNE * follow trend of H/H (3) Bacteremia: Code(s): R78.81 - Bacteremia Status: Acute Assessment and Plan: * blood cultures (from 04/07): gram positive cocci in clusters * source?? * on IV antibiotics * follow repeat cultures (4) Ground-level fall: Code(s): W18.30XA - Fall on same level, unspecified, initial encounter Status: Acute Assessment and Plan: * trauma workup negative * imaging to date without any acute injuries * fall precautions * PT/OT evaluation (5) Metabolic acidosis: Code(s): E87.20 - Acidosis, unspecified Status: Acute Assessment and Plan: * due to renal dysfunction possibly worsened by normal saline IVFs * continue oral sodium bicarbonate (6) Bradycardia: Code(s): R00.1 - Bradycardia, unspecified Status: Acute Assessment and Plan: * Cardiology recommendations noted * atenolol discontinued * follow heart rate (7) Hyponatremia: Code(s): E87.1 - Hypo-osmolality and hyponatremia Status: Resolved Assessment and Plan: * resolved * as noted on admission * appears to have a chronic component * likely exacerbated by renal dysfunction * follow trend of sodium (8) Hypertension: Qualifiers: Hypertension type: unspecified Qualified Code(s): I10 - Essential (primary) hypertension Code(s): I10 - Essential (primary) hypertension Status: Chronic Assessment and Plan: * reasonable control * however, has had bouts of hypotension as well * atenolol discontinued per Cardiology recommendations * follow trend of hemodynamics (9) Ulcer of right knee: Code(s): L97.819 - Non-pressure chronic ulcer of other part of right lower leg with unspecified severity Status: Acute Assessment and Plan: * chronic per patient * no evidence of acute infection * local wound care (10) Severe protein-calorie malnutrition: Code(s): E43 - Unspecified severe protein-calorie malnutrition Status: Acute Assessment and Plan: * as noted on admission * regular diet (in spite of renal dysfunction) * nutritional supplements as tolerated * 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 I also told her son that in spite of the fact that she may need dialysis in the future, his mother is adamantly refusing this intervention as well. Will continue to follow. L Subjective Date/time seen: 04/09/25 11:20 Interval history: Follow-up for acute kidney injury/acute renal failure (vs. CARL on CKD vs. chronic kidney disease). Renal function/creatinine remains poor but relatively stable in the last few days; metabolic acidosis is slowly improving as well; positive blood cultures noted and initiated on antibiotic therapy; no other acute issues or events overnight or earlier this morning. Exam 2 Narrative: General: elderly, frail and chronically ill appearing female in NAD Heart: normal S1 and S2; no rub Lungs: clear anteriorly Abdomen: soft, nontender, nondistended, positive bowel sounds Extremities: no cyanosis or clubbing; no edema; left AKA Skin: right knee dressings noted Objective Data Vital Signs Vital Signs: Vital Signs Temp Pulse Resp BP Pulse Ox O2 Del Method FiO2 04/09/25 11:00 55 L 04/09/25 09:54 57 L 18 95/44 L 100 04/09/25 08:00 55 L 04/09/25 08:00 Room Air 04/09/25 05:41 96.5 F L 56 L 20 151/77 H 100 04/09/25 04:00 50 L 04/09/25 00:00 53 L 04/08/25 21:12 96.5 F L 53 L 20 145/71 H 99 04/08/25 20:59 98 Room Air 21 04/08/25 20:00 57 L 04/08/25 20:00 Room Air Intake/Output Intake/Output: Intake & Output 04/06/25 04/07/25 04/08/25 04/09/25 23:59 23:59 23:59 23:59 Intake Total 1140 1070 880 410 Output Total 300 850 700 870 Balance 840 220 180 -460 Meds/Results Medications: Active Medications Generic Name Dose Route Start Last Admin Trade Name Freq PRN Reason Stop Dose Admin Acetaminophen 650 mg 04/04/25 21:43 04/09/25 09:53 Acetaminophen 325 Mg Tablet PO 650 mg Q4H PRN Administration Mild Pain (1-3) Or Fever Acetaminophen 650 mg 04/07/25 10:12 04/07/25 10:21 Acetaminophen 650 Mg Suppository RECTAL 650 mg Q6H PRN Administration Mild Pain (1-3) or Fever Furosemide 40 mg 04/04/25 16:42 04/04/25 19:53 Furosemide Inj 40 Mg/4 Ml Vial IV PUSH 40 mg ONCE PRN Administration After 2nd blood transfusion Heparin Sodium (Porcine) 5,000 units 04/04/25 21:00 04/09/25 09:53 Heparin Sodium 5,000 Units/Ml Vial SUB-Q 5,000 units Q12HR LISANDRA Administration Ceftriaxone Sodium 2 gm in 100 mls @ 200 mls/hr 04/08/25 09:30 04/09/25 12:02 Rocephin 2 Gm/Ns 100 Ml IVPB 200 mls/hr DAILY LISANDRA Administration Ofloxacin 1 drop 04/04/25 23:40 04/09/25 17:49 Ofloxacin 0.3% Ophth Soln 5 Ml Btl AFFCTD EYE 1 drop QID LISANDRA Administration Ropinirole HCl 4 mg 04/04/25 21:43 04/07/25 21:19 Ropinirole Hcl 1 Mg Tablet PO 4 mg HS PRN Administration Restless Leg(S) Sodium Bicarbonate 1,300 mg 04/08/25 09:00 04/09/25 17:49 Sodium Bicarbonate Tab 650 Mg Tablet PO 1,300 mg TID LISANDRA Administration Triamcinolone Acetonide 1 applic 04/06/25 10:10 04/09/25 09:54 Triamcinolone Acet 0.1% Cream 15 Gm Tube TOPICAL 1 applic Q12HR LISANDRA Administration Vancomycin HCl 1 each 04/09/25 08:11 Vancomycin For Acute Kidney Injury IVPB PRN PRN Vancomycin Protocol Radiology Results: ITS Impressions Lumbar Spine CT 04/04/25 13:02 IMPRESSION: 1. Mild lumbar spondylosis with impingement at L4-5 posterior spinal fusion and stable appearance of multiple chronic lumbar and lower thoracic compression and burst fractures as detailed above. No acute osseous abnormality. 2. Bilateral total hip arthroplasties. No acute osseous abnormality in the pelvis or proximal femurs. Pelvis CT 04/04/25 13:02 IMPRESSION: 1. Mild lumbar spondylosis with impingement at L4-5 posterior spinal fusion and stable appearance of multiple chronic lumbar and lower thoracic compression and burst fractures as detailed above. No acute osseous abnormality. 2. Bilateral total hip arthroplasties. No acute osseous abnormality in the pelvis or proximal femurs. Renal Ultrasound 04/04/25 22:15 IMPRESSION: Limited evaluation secondary to poor acoustic penetration and patient positioning. Severe medical renal disease within the visualized atrophic left kidney. No left-sided hydronephrosis. Chest X-Ray 04/07/25 11:03 IMPRESSION: 1: NO ACUTE CARDIOPULMONARY DISEASE. Head CT 04/07/25 12:12 Impression: No large acute intracranial hemorrhage or suspicious significant mass effect. Labs Labs: Laboratory Tests 04/09/25 05:29 04/09/25 05:29 Calcium 7.6 L Magnesium 2.1 Total Bilirubin 0.2 AST 51 H ALT 18 Alkaline Phosphatase 196 H Total Protein 6.0 L Albumin 2.2 L Microbiology 04/07/25 10:44 Blood Blood Culture - Preliminary Gram positive cocci cluster is 04/07/25 10:52 Blood Blood Culture - Preliminary Gram positive cocci cluster is
[2025-04-09] MEDS: cefTRIAXone 2 GM/NS 100 ML 2 GM/100 ML BAG IVPB (12:02)
--- NOTE | 2025-04-09 12:52 | PCOTNOTE ---
Attempted to see Patient at this time. Patient refuses to participate in any activities. Patient verbalized, I said no, leave me alone, go away and don't come back. Patient states she will not do therapy. Will speak to OT for discharging from services
[2025-04-09 14:04] LABS: Creatinine, Random Urine 53 mg/dL (20-275); Total Prot/Creat ratio mg/mg 6.094 (0.024-0.184); Total Protein/Creatinine Ratio 6094 mg/g creat (24-184)
[2025-04-09 18:18] LABS: Abnormal Protein Band 1 0.1 g/dL (NONE DETECTED); Albumin 2.1 g/dL (3.8-4.8); Alpha 1 Globulin 0.3 g/dL (0.2-0.3); Alpha 2 Globulin 0.7 g/dL (0.5-0.9); Beta 1 Globulin 0.4 g/dL (0.4-0.6); Gamma Globulin 1.8 g/dL (0.8-1.7)
[2025-04-10] VITALS (9 sets, daily range): BP systolic 104–131; BP diastolic 52–81; PULSE 53–70; RESP 18; TEMP 36.3–37; O2SAT 96–99
--- NOTE | 2025-04-10 | ECHO_ITS ---
Patient Info Name: Daria Pickett Age: 69 years : 1955 Gender: Female Ht: 60 in Wt: 90 lbs BSA: 1.31 m2 HR: 58 bpm BP: 140 / 90 mmHg Heart Rhythm: Sinus Rhythm Technical Quality: Good Exam Date: 04/10/2025 1:00 PM Patient Status: I Admit Date: 04/04/2025 Exam Type: CA echo doppler color flow Complete two-dimensional, color flow and Doppler transthoracic echocardiogram is performed. Staff Referring Physician: Catalina Kraft Presales Senior Specialist: Brooklyn Brown Attending Provider: Antonia Dan Summary 1. Complete two-dimensional, color flow and Doppler transthoracic echocardiogram is performed. 2. Technically difficult study with limited views due to patient positioning. 3. No definite endocarditis visualized nor there is severe valvular abnormalities in this study. 4. There is normal biventricular size and systolic function. Left Ventricle The left ventricle is normal in size with hyperdynamic systolic function. The left ventricular ejection fraction is visually estimated to be greater than 70%. Right Ventricle The right ventricle is normal in size and systolic function. Left Atria The left atrium is grossly normal size. Right Atria The right atrium is grossly normal size. Atrial Septum The atrial septum is intact by color Doppler on off axis views. Aortic Valve The aortic valve is trileaflet and opens well. There is trace aortic regurgitation. Pulmonic Valve The pulmonic valve is grossly normal. There is no color Doppler evidence of pulmonic valve regurgitation. Mitral Valve The mitral valve leaflets are sclerotic but opens well. There is trace mitral regurgitation. Tricuspid Valve The tricuspid valve is grossly normal. There is trace tricuspid regurgitation. Pericardium/Pleural Pericardium is normal in appearance with no evidence for significant pericardial effusion. Inferior Vena Cava Inferior vena cava is not well visualized. Aorta The aortic root at the level of sinus of Valsalva measures 3.3 cm in diameter. Left Ventricular Outflow Tract Name Value Normal LVOT 2D LVOT Diameter 1.9 cm LVOT Doppler LVOT Peak Velocity 138 cm/s LVOT Peak Gradient 8 mmHg LVOT Mean Gradient 3 mmHg LVOT VTI 28 cm LVOT VTI/AV VTI Ratio 0.9 LVOT Stroke Volume 80 ml LVOT CO 4.0 l/min LVOT CI 3.1 l/min/m2 Mitral Valve Name Value Normal MV Regurgitation Doppler MR Peak Gradient 152 mmHg MV Diastolic Function MV E Peak Velocity 92 cm/s MV A Peak Velocity 107 cm/s MV E/A 0.9 MV Decel Time (PW) 325 ms MV Annular TDI MV E/e' (Septal) 17.6 MV E/e' (Lateral) 10.9 MV E/e' (Average) 14.2 Tricuspid Valve Name Value Normal TV Regurgitation Doppler TR Peak Velocity 254 cm/s TR Peak Gradient 26 mmHg TV Annular TDI TV Lateral Ludivina s' Velocity 18.0 cm/s >=9.5 Aortic Valve Name Value Normal AV Doppler AV Peak Velocity 168 cm/s AV Peak Gradient 11 mmHg AV Mean Gradient 5 mmHg AV VTI 31 cm AV Area (Cont Eq VTI) 2.5 cm2 >=3.0 AV Area (Cont Eq Issa) 2.3 cm2 AV DI (Issa) 0.83 AV Regurgitation 2D LVOT Area 2.8 cm2 Ventricles Name Value Normal LV Dimensions 2D/MM IVS Diastolic Thickness (2D) 1.1 cm 0.6-1.0 LVID Diastole (2D) 3.9 cm 3.8-5.2 LVIW Diastolic Thickness (2D) 1.0 cm 0.6-0.9 LVID Systole (2D) 2.6 cm 2.2-3.5 LVOT Diameter 1.9 cm LV Mass (2D Cubed) 134.44 g 67.00-162.00 LV Mass Index (2D Cubed) 103 g/m2 43-95 Relative Wall Thickness (2D) 0.52 <=0.42 LV Fractional Shortening/Ejection Fraction 2D/MM LV Fractional Shortening (2D) 34 % 27-45 LV EF (2D Teichholz) 64 % LV Diastolic Volume (4C MOD) 58 ml LV EF (4C MOD) 64 % LV Diastolic Volume (2C MOD) 71 ml LV EF (2C MOD) 69 % LV Diastolic Volume (BP MOD) 64 ml 46-106 LV Diastolic Volume Index (BP MOD) 49 ml/m2 29-61 LV Systolic Volume (BP MOD) 22 ml 14-42 LV Systolic Volume Index (BP MOD) 16 ml/m2 8-24 LV EF (BP MOD) 66 % 54-74 LV Diastolic Length (4C) 8.1 cm LV Systolic Length (4C) 6.7 cm LV Stroke Volume (4C MOD) 37 ml Atria Name Value Normal LA Dimensions LA Volume (4C A-L) 44 ml LA Volume (BP A-L) 54 ml Report Signatures
[2025-04-10 05:52] LABS: Basophils Percent Auto 0.2 % (0.2-1.2); Eosinophils Absolute Auto 0.5 K/mm3 (0-0.3); Eosinophils Percent Auto 9.6 % (0-4.4); Hematocrit 26.7 % (37.0-47.0); Hemoglobin 8.3 g/dL (12.0-15.0); Immature Granulocyte Absolute 0.02 K/mm3 (0.00-0.031); Immature Granulocyte Percent A 0.4 % (0-0.5); Lymphocytes Absolute Auto 1.12 K/mm3 (0.9-3.2); Lymphocytes Percent Auto 23.8 % (18.3-44.2); Mean Corpuscular HGB Conc 31.1 g/dl (32-36); Mean Corpuscular Hemoglobin 25.7 pg (26-34); Mean Corpuscular Volume 82.7 fl (80-100); Mean Platelet Volume 9.3 fl (7.4-10.4); Monocytes Absolute Auto 0.3 K/mm3 (0.1-0.6); Monocytes Percent Auto 7.2 % (2.6-8.5); Neutrophils Absolute Auto 2.8 K/mm3 (1.3-6.7); Neutrophils Percent Auto 58.8 % (45.5-73.1); Platelet Count Result 156 k/mm3 (150-375); Red Blood Count 3.23 M/mm3 (4.2-5.4); Red Cell Distribution Width 19.8 % (11.5-14.5); White Blood Count 4.7 K/mm3 (4.5-10.0)
[2025-04-10 06:01] LABS: Alanine Aminotransferase 15 U/L (6-35); Albumin Level 2.1 g/dL (3.5-5.1); Alkaline Phosphatase 194 U/L (38-126); Anion Gap 8 mmol/L (4-12); Aspartate Amino Transferase 40 U/L (14-36); Bilirubin,Total 0.2 mg/dL (0.2-1.3); Blood Urea Nitrogen 55 mg/dL (7-17); Calcium 7.3 mg/dL (8.4-10.2); Carbon Dioxide 19 mmol/L (22-30); Chloride 111 mmol/L (98-107); Estimated CRCL calculation 7 ml/min; Estimated Glomerular Filt Rate 10; Glucose 73 mg/dL (65-110); Magnesium 1.9 mg/dL (1.6-2.3); Potassium 3.2 mmol/L (3.4-5.0); Sodium 138 mmol/L (137-145)
[2025-04-10 06:11] LABS: Vancomycin Random 8.1 ug/mL (10-20)
--- NOTE | 2025-04-10 08:29 | P.PNIM_ITS ---
Progress Note: A&P Assessment and Plan (1) Anemia: Qualifiers: Anemia type: unspecified type Qualified Code(s): D64.9 - Anemia, unspecified Code(s): D64.9 - Anemia, unspecified Status: Acute Assessment and Plan: - acute on chronic - Hgb in ED 3.4 (previously 12.4 in 2022), MCV and MCHC low, continue to trend - add iron, TIBC, ferritin, B12, folic acid, and TSH - transfuse if <7 plan for 3U PRBC on 04/04 with Lasix 40 mg after 2nd unit, post H&H 9.8/31.5. H&H today was 8.3/26.7. - trend H&H - stool occult negative - Iron 232. TIBC 268, % saturation 87. (2) Metabolic acidosis: Code(s): E87.20 - Acidosis, unspecified Status: Acute Assessment and Plan: * pC02 18.5 on ABG 04/07/25. * Patient received an amp of sodium bicarbonate. * Carbon dioxide improved to 19 today from 18 yesterday on CMP. * Sodium Bicarbonate 1,300 mg PO TID. (3) Positive blood cultures: Code(s): R78.81 - Bacteremia Status: Acute Assessment and Plan: * Blood cultures from 04/07 grew gram positive cocci in clusters, * --Repeat blood cultures ordered today, pending * --Ordering echo today, pending. Pt aware of plan. * Ceftriaxone 2 gram IVPB daily and Vancomycin 500 mg IVPB (Renally dose per pharmacy). * Urine culture unremarkable. * Chest X-ray negative. (4) Acute renal failure: Qualifiers: Acute renal failure type: unspecified Qualified Code(s): N17.9 - Acute kidney failure, unspecified Code(s): N17.9 - Acute kidney failure, unspecified Status: Acute Assessment and Plan: - creatinine 4.41 and GFR 10, previously 0.6 and GFR >60 in 2022 - renal ultrasound: Limited evaluation secondary to poor acoustic penetration and patient positioning. Severe medical renal disease within the visualized atrophic left kidney. No left-sided hydronephrosis. - add CK 45, urine sodium, protein/creatinine 4.64, urine creatinine 36.4, urea, serum osmolality 304 and urine osmolality (pending) -Continue daily labs - UA: urine color orange, cloudy, 3+ protein, trace glucose, 3+ blood, 1+ leukocytes, >100 RBC. 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 * Protein 6.0. * Calculator Operator consulted, appreciate recommendations. * Nutritional ice cream TID. Regular diet. * TSH 2.820 (6) Ground-level fall: Code(s): W18.30XA - Fall on same level, unspecified, initial encounter Status: Acute Assessment and Plan: - trauma workup negative. Imaging included lumbar spine and pelvic CT. Initially denied head strike, however reporting right eye swelling post fall. Head CT negative. - fall precautions - PT/OT evaluation for discharge planning - Care coordination for discharge planning (7) Ulcer of right knee: Code(s): L97.819 - Non-pressure chronic ulcer of other part of right lower leg with unspecified severity Status: Acute Assessment and Plan: * Wound care consult, recs for no wound care needed to R hip. * Silver gel and cover dressing daily for R knee. Dressing not applied at time of exam. (8) Bradycardia: Code(s): R00.1 - Bradycardia, unspecified Status: Acute Assessment and Plan: * Cardiology consulted, Atenolol discontinued. * Telemetry NSR 60bpm today (9) Hypertension: Qualifiers: Hypertension type: unspecified Qualified Code(s): I10 - Essential (primary) hypertension Code(s): I10 - Essential (primary) hypertension Status: Chronic Assessment and Plan: - Cardiology saw patient, Atenolol discontinued. - Blood /52, 60bpm. - Continue to monitor Plan Diet: Regular GI Prophylaxis: Not currently indicated DVT Prophylaxis: Heparin SQ IV fluids: None, oral intake adequate Lines/Tubes: Peripheral IV Code Status: Full code Subjective Date/time seen: 04/10/25 1148 Interval history: Pt resting comfortably in bed. Pt asking if her kidneys are better yet and we had a discussion about how they are still unstable and that nephrology is covering this specific issue. Pt still refusing dialysis. Denies any pain or any issues today. Review of Systems Review of Systems: All systems reviewed & are unremarkable except as noted in HPI and below Exam Const: General: comfortable, no acute distress and uncomfortable Other: , female, elderly, chronically ill-appearing, disheveled. HENMT: Face/Nose/Sinus: Normal nares present Mouth: Yes dry mucous membranes Eyes: Other: Right upper and lower eyelid swelling and redness improving. Patient opening eye more with ease. Neck: Neck: supple and no JVD Resp: Effort & Inspection: normal respiratory effort Auscultation: clear to auscultation bilaterally Other: slightly diminished. Cardio: Rate: regular rate Rhythm: regular rhythm Other: NSR on tele 60bpm GI: Auscultation: normal bowel sounds Other: Abdomen soft, nondistended, nontender. Normoactive bowel sounds in all quadrants. Back/Spine/Pelvis: Back: other (Kyphosis) Skin: General skin exam: normal color Other: Rash to upper back improving, no drainage, appears as if just scratch jordan now. Chronic wound to right knee, no dressing in place at time of exam, erythematous with edema. Neuro: Speech: normal speech Other: A&O x4, moving all extremities, normal speech. However, patient poor historian. Extrem: General: no pedal edema Other: Left AKA See SKIN Psych: Mental Status: mental status grossly normal Affect: normal affect Objective Data Vital Signs Vital Signs: Vital Signs - 24 hr 04/09/25 09:54 04/09/25 12:00 04/09/25 13:42 Temperature 97.7 F Pulse Rate 57 L 55 L 63 Respiratory Rate 18 16 Blood Pressure 95/44 L 92/39 L Pulse Oximetry 100 100 Oxygen Delivery Fraction of Inspired Oxygen 04/09/25 16:00 04/09/25 20:00 04/09/25 20:00 Temperature Pulse Rate 57 L 67 Respiratory Rate Blood Pressure Pulse Oximetry Oxygen Delivery Room Air Fraction of Inspired Oxygen 04/09/25 21:30 04/09/25 22:04 04/10/25 00:00 Temperature 98.4 F Pulse Rate 64 63 62 Respiratory Rate 18 Blood Pressure 115/59 L Pulse Oximetry 99 98 Oxygen Delivery Room Air Fraction of Inspired Oxygen 04/10/25 04:00 Temperature Pulse Rate 54 L Respiratory Rate Blood Pressure Pulse Oximetry Oxygen Delivery Fraction of Inspired Oxygen Intake/Output Intake/Output: Intake & Output 04/07/25 04/08/25 04/09/25 04/10/25 23:59 23:59 23:59 23:59 Intake Total 1070 880 410 Output Total 850 700 870 Balance 220 180 -460 Meds/Results Medications: Active Medications Generic Name Dose Route Start Last Admin Trade Name Freq PRN Reason Stop Dose Admin Acetaminophen 650 mg 04/04/25 21:43 04/09/25 09:53 Acetaminophen 325 Mg Tablet PO 650 mg Q4H PRN Administration Mild Pain (1-3) Or Fever Acetaminophen 650 mg 04/07/25 10:12 04/07/25 10:21 Acetaminophen 650 Mg Suppository RECTAL 650 mg Q6H PRN Administration Mild Pain (1-3) or Fever Furosemide 40 mg 04/04/25 16:42 04/04/25 19:53 Furosemide Inj 40 Mg/4 Ml Vial IV PUSH 40 mg ONCE PRN Administration After 2nd blood transfusion Heparin Sodium (Porcine) 5,000 units 04/04/25 21:00 04/09/25 20:29 Heparin Sodium 5,000 Units/Ml Vial SUB-Q 5,000 units Q12HR LISANDRA Administration Ceftriaxone Sodium 2 gm in 100 mls @ 200 mls/hr 04/08/25 09:30 04/09/25 12:02 Rocephin 2 Gm/Ns 100 Ml IVPB 200 mls/hr DAILY LISANDRA Administration Vancomycin HCl 500 mg in 100 mls @ 100 mls/hr 04/10/25 08:00 Vancomycin 500 Mg/Ns 100 Ml IVPB 04/10/25 08:59 ONCE ONE Ofloxacin 1 drop 04/04/25 23:40 04/09/25 20:30 Ofloxacin 0.3% Ophth Soln 5 Ml Btl AFFCTD EYE 1 drop QID LISANDRA Administration Ropinirole HCl 4 mg 04/04/25 21:43 04/07/25 21:19 Ropinirole Hcl 1 Mg Tablet PO 4 mg HS PRN Administration Restless Leg(S) Sodium Bicarbonate 1,300 mg 04/08/25 09:00 04/09/25 17:49 Sodium Bicarbonate Tab 650 Mg Tablet PO 1,300 mg TID LISANDRA Administration Triamcinolone Acetonide 1 applic 04/06/25 10:10 04/09/25 20:30 Triamcinolone Acet 0.1% Cream 15 Gm Tube TOPICAL 1 applic Q12HR LISANDRA Administration Vancomycin HCl 1 each 04/09/25 08:11 Vancomycin For Acute Kidney Injury IVPB PRN PRN Vancomycin Protocol Radiology Results: ITS Impressions Lumbar Spine CT 04/04/25 13:02 IMPRESSION: 1. Mild lumbar spondylosis with impingement at L4-5 posterior spinal fusion and stable appearance of multiple chronic lumbar and lower thoracic compression and burst fractures as detailed above. No acute osseous abnormality. 2. Bilateral total hip arthroplasties. No acute osseous abnormality in the pelvis or proximal femurs. Pelvis CT 04/04/25 13:02 IMPRESSION: 1. Mild lumbar spondylosis with impingement at L4-5 posterior spinal fusion and stable appearance of multiple chronic lumbar and lower thoracic compression and burst fractures as detailed above. No acute osseous abnormality. 2. Bilateral total hip arthroplasties. No acute osseous abnormality in the pelvis or proximal femurs. Renal Ultrasound 04/04/25 22:15 IMPRESSION: Limited evaluation secondary to poor acoustic penetration and patient positioning. Severe medical renal disease within the visualized atrophic left kidney. No left-sided hydronephrosis. Chest X-Ray 04/07/25 11:03 IMPRESSION: 1: NO ACUTE CARDIOPULMONARY DISEASE. Head CT 04/07/25 12:12 Impression: No large acute intracranial hemorrhage or suspicious significant mass effect. Labs Labs: Laboratory Results - last 24 hr 04/04/25 04/05/25 04/08/25 12:29 05:57 13:06 WBC RBC Hgb Hct MCV MCH MCHC RDW Plt Count MPV Immature Gran % (Auto) Neut % (Auto) Lymph % (Auto) [place] % (Auto) Eos % (Auto) Baso % (Auto) Lymph # (Auto) [place] # (Auto) Eos # (Auto) Baso # (Auto) Abs Immat Gran (auto) Absolute Neuts (auto) Absolute Nucleated RBC Nucleated RBC % Sodium Potassium Chloride Carbon Dioxide Anion Gap BUN Creatinine Estim Creat Clear Calc Estimated GFR Glucose Serum Osmolality 304 Calcium Magnesium Total Bilirubin AST ALT Alkaline Phosphatase Total Protein Albumin 2.1 L Wbyii-7-Hukbnbrdc 0.3 Wlwxn-5-Qxodhugjs 0.7 Ezbg-8-Vrumrska 0.4 Yhpt-1-Nuwalbso 0.6 H Gamma Globulins 1.8 H Abnorm Protein Band 1 0.1 H PEP Interpretation See note Ur Random Creatinine 53 U Random Total Protein 323 H Protein/Creatinin Ratio 6094 H Random Vancomycin [place]/Lambda Ratio 1.00 Free [place] Light Chains 208.3 H Free Lambda Light Chain 208.6 H 04/10/25 04/10/25 05:17 05:18 WBC 4.7 RBC 3.23 L Hgb 8.3 L Hct 26.7 L MCV 82.7 MCH 25.7 L MCHC 31.1 L RDW 19.8 H Plt Count 156 MPV 9.3 Immature Gran % (Auto) 0.4 Neut % (Auto) 58.8 Lymph % (Auto) 23.8 [place] % (Auto) 7.2 Eos % (Auto) 9.6 H Baso % (Auto) 0.2 Lymph # (Auto) 1.12 [place] # (Auto) 0.3 Eos # (Auto) 0.5 H Baso # (Auto) 0.0 Abs Immat Gran (auto) 0.02 Absolute Neuts (auto) 2.8 Absolute Nucleated RBC 0.000 Nucleated RBC % 0.0 Sodium 138 Potassium 3.2 L Chloride 111 H Carbon Dioxide 19 L Anion Gap 8 BUN 55 H Creatinine 4.41 H Estim Creat Clear Calc 7 Estimated GFR 10 L Glucose 73 Serum Osmolality Calcium 7.3 L Magnesium 1.9 Total Bilirubin 0.2 AST 40 H ALT 15 Alkaline Phosphatase 194 H Total Protein 5.0 L Albumin 2.1 L Czrgq-6-Pooqivevz Sekdw-5-Klovzmcwl Rzcy-3-Wibnnmzz Yfry-3-Gvqnxfgo Gamma Globulins Abnorm Protein Band 1 PEP Interpretation Ur Random Creatinine U Random Total Protein Protein/Creatinin Ratio Random Vancomycin 8.1 L [place]/Lambda Ratio Free [place] Light Chains Free Lambda Light Chain Quality VTE Prophylaxis VTE prophylaxis: pharmacologic ordered
[2025-04-10] MEDS: HEPARIN SODIUM 5,000 UNITS/ML VIAL 5000 UNITS SUB-Q ×2 (09:05→20:44)
[2025-04-10] MEDS: SODIUM BICARBONATE TAB 650 MG TABLET 1300 MG PO ×3 (09:05→17:32)
[2025-04-10] MEDS: cefTRIAXone 2 GM/NS 100 ML 2 GM/100 ML BAG IVPB (09:06)
[2025-04-10] MEDS: OFLOXACIN 0.3% OPHTH SOLN 5 ML BTL 1 DROP AFFCTD EYE ×4 (09:06→20:44)
[2025-04-10] MEDS: VANCOMYCIN 500 MG/NS 100 ML 500 MG/100 ML BAG 100 MG IVPB (09:07)
[2025-04-10] MEDS: TRIAMCINOLONE ACET 0.1% CREAM 15 GM TUBE 1 APPLIC TOPICAL ×2 (09:08→20:44)
[2025-04-10 10:05] LABS: Hepatitis B Core Ab Total NON-REACTIVE (NON-REACTIVE)
--- NOTE | 2025-04-10 10:29 | PCOTNOTE ---
Attempted to see Patient again this A.M. for OT treatment session. Patient refused to participate, verbalizes she does not want therapy services. Patient will be discharged from services at this time.
--- NOTE | 2025-04-10 13:58 | P.PNNP_ITS ---
Progress Note: A&P Assessment and Plan (1) Acute kidney injury: Code(s): N17.9 - Acute kidney failure, unspecified Status: Acute Assessment and Plan: * no improvement noted (but relatively stable) * significant decline as noted by admission labs * acute versus acute on chronic versus chronic?? -- suspect the latter... * only previous labs available are from July 2023 -- creatinine normal at that time * evaluation to date noted: * renal ultrasound with small atrophic left kidney; unable to visualize right kidney due patient's contracted state * urine eosinophils negative * normal CPK * nephrotic range proteinuria * urine electrolytes prerenal * surprisingly, no critical electrolytes noted and stable volume status although she does have a metabolic acidosis * evidence would seem to indicate a chronic component of disease present... 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 * however, no need for urgent RESIDENTIAL SPECIALIST/dialysis at this time...stable electrolytes, improving acidosis, and no evidence of volume overload or uremia * follow trend of repeat labs and UOP (2) Anemia: Qualifiers: Anemia type: unspecified type Qualified Code(s): D64.9 - Anemia, unspecified Code(s): D64.9 - Anemia, unspecified Status: Acute Assessment and Plan: * quite severe on presenation * s/p PRBC transfusion with improvement in H/H * no evidence of GI bleed (hemoccult negative) * suspect related to severe renal insufficiency * suspect will need outpatient ADRIENNE * will dose while as inpatient * follow trend of H/H (3) Bacteremia: Code(s): R78.81 - Bacteremia Status: Acute Assessment and Plan: * blood cultures (from 04/07): Staphylococcus aureus * source?? * on IV antibiotics * follow repeat cultures * 04/10 - pending (4) Ground-level fall: Code(s): W18.30XA - Fall on same level, unspecified, initial encounter Status: Acute Assessment and Plan: * trauma workup negative * imaging to date without any acute injuries * fall precautions * PT/OT evaluation (5) Metabolic acidosis: Code(s): E87.20 - Acidosis, unspecified Status: Acute Assessment and Plan: * slow improvement * due to renal dysfunction possibly worsened by previous normal saline IVFs * continue oral sodium bicarbonate (6) Bradycardia: Code(s): R00.1 - Bradycardia, unspecified Status: Acute Assessment and Plan: * Cardiology recommendations noted * atenolol discontinued * follow heart rate (7) Hypertension: Qualifiers: Hypertension type: unspecified Qualified Code(s): I10 - Essential (primary) hypertension Code(s): I10 - Essential (primary) hypertension Status: Chronic Assessment and Plan: * reasonable control * however, has had bouts of hypotension as well * atenolol discontinued per Cardiology recommendations * follow trend of hemodynamics (8) Ulcer of right knee: Code(s): L97.819 - Non-pressure chronic ulcer of other part of right lower leg with unspecified severity Status: Acute Assessment and Plan: * chronic per patient * no evidence of acute infection * local wound care I was able discuss the issue of the patient's severe renal dysfunction with the patient's son by phone on the morning of 04/09 (with the use of the patient's cellphone); I voiced my concerns that she she will likely require renal replacement therapy/dialysis in the near future although she has no acute indications for it at this very moment. I also told her son that in spite of the fact that she may need dialysis in the future, his mother is adamantly refusing this intervention as well. Will continue to follow. Subjective Date/time seen: 04/10/25 13:58 Interval history: Follow-up for acute kidney injury/acute renal failure (vs. CARL on CKD vs. chronic kidney disease). No real significant change in renal function at this time -- however, still continues to make reasonable urine output and has relatively stability in her electrolytes; no other acute complaints voiced at this time; tolerating antibiotic therapy; no events overnight or earlier this morning. Exam 2 Narrative: General: elderly, frail and chronically ill appearing female in NAD Heart: normal S1 and S2; no rub Lungs: clear anteriorly Abdomen: soft, nontender, nondistended, positive bowel sounds Extremities: no cyanosis or clubbing; no edema; left AKA Skin: right knee dressings present Objective Data Vital Signs Vital Signs: Vital Signs Temp Pulse Resp BP Pulse Ox O2 Del Method FiO2 04/10/25 13:00 97.3 F L 63 18 104/52 L 96 04/10/25 08:00 57 L 04/10/25 08:00 Room Air 04/10/25 06:40 98.6 F 57 L 18 131/81 99 04/10/25 04:00 54 L 04/10/25 00:00 62 04/09/25 22:04 98.4 F 63 18 115/59 L 98 04/09/25 21:30 64 99 Room Air 21 04/09/25 20:00 67 04/09/25 20:00 Room Air Intake/Output Intake/Output: Intake & Output 04/07/25 04/08/25 04/09/25 04/10/25 23:59 23:59 23:59 23:59 Intake Total 1070 880 510 936 Output Total 850 700 870 900 Balance 220 180 -360 36 Meds/Results Medications: Active Medications Generic Name Dose Route Start Last Admin Trade Name Freq PRN Reason Stop Dose Admin Acetaminophen 650 mg 04/04/25 21:43 04/09/25 09:53 Acetaminophen 325 Mg Tablet PO 650 mg Q4H PRN Administration Mild Pain (1-3) Or Fever Acetaminophen 650 mg 04/07/25 10:12 04/07/25 10:21 Acetaminophen 650 Mg Suppository RECTAL 650 mg Q6H PRN Administration Mild Pain (1-3) or Fever Furosemide 40 mg 04/04/25 16:42 04/04/25 19:53 Furosemide Inj 40 Mg/4 Ml Vial IV PUSH 40 mg ONCE PRN Administration After 2nd blood transfusion Heparin Sodium (Porcine) 5,000 units 04/04/25 21:00 04/10/25 09:05 Heparin Sodium 5,000 Units/Ml Vial SUB-Q 5,000 units Q12HR LISANDRA Administration Ceftriaxone Sodium 2 gm in 100 mls @ 200 mls/hr 04/08/25 09:30 04/10/25 09:06 Rocephin 2 Gm/Ns 100 Ml IVPB 200 mls/hr DAILY LISANDRA Administration Ofloxacin 1 drop 04/04/25 23:40 04/10/25 17:32 Ofloxacin 0.3% Ophth Soln 5 Ml Btl AFFCTD EYE 1 drop QID LISANDRA Administration Perflutren Lipid Microsphere 0 ml 04/10/25 08:40 Perflutren Lipid Microspheres 1.5 Ml Vial Diluted To 10 Ml Total Volume IV PUSH 04/13/25 08:40 ONCE PRN adequate visualization Protocol Ropinirole HCl 4 mg 04/04/25 21:43 04/07/25 21:19 Ropinirole Hcl 1 Mg Tablet PO 4 mg HS PRN Administration Restless Leg(S) Sodium Bicarbonate 1,300 mg 04/08/25 09:00 04/10/25 17:32 Sodium Bicarbonate Tab 650 Mg Tablet PO 1,300 mg TID LISANDRA Administration Triamcinolone Acetonide 1 applic 04/06/25 10:10 04/10/25 09:08 Triamcinolone Acet 0.1% Cream 15 Gm Tube TOPICAL 1 applic Q12HR LISANDRA Administration Vancomycin HCl 1 each 04/09/25 08:11 Vancomycin For Acute Kidney Injury IVPB PRN PRN Vancomycin Protocol Radiology Results: ITS Impressions Lumbar Spine CT 04/04/25 13:02 IMPRESSION: 1. Mild lumbar spondylosis with impingement at L4-5 posterior spinal fusion and stable appearance of multiple chronic lumbar and lower thoracic compression and burst fractures as detailed above. No acute osseous abnormality. 2. Bilateral total hip arthroplasties. No acute osseous abnormality in the pelvis or proximal femurs. Pelvis CT 04/04/25 13:02 IMPRESSION: 1. Mild lumbar spondylosis with impingement at L4-5 posterior spinal fusion and stable appearance of multiple chronic lumbar and lower thoracic compression and burst fractures as detailed above. No acute osseous abnormality. 2. Bilateral total hip arthroplasties. No acute osseous abnormality in the pelvis or proximal femurs. Renal Ultrasound 04/04/25 22:15 IMPRESSION: Limited evaluation secondary to poor acoustic penetration and patient positioning. Severe medical renal disease within the visualized atrophic left kidney. No left-sided hydronephrosis. Chest X-Ray 04/07/25 11:03 IMPRESSION: 1: NO ACUTE CARDIOPULMONARY DISEASE. Head CT 04/07/25 12:12 Impression: No large acute intracranial hemorrhage or suspicious significant mass effect. Labs Labs: Laboratory Tests 04/10/25 05:17 04/10/25 05:18 Calcium 7.3 L Magnesium 1.9 Total Bilirubin 0.2 AST 40 H ALT 15 Alkaline Phosphatase 194 H Total Protein 5.0 L Albumin 2.1 L Microbiology 04/08/25 13:06 Urine Clean Catch Urine Culture Reflexed - Final 04/07/25 10:44 Blood Blood Culture - Preliminary Staphylococcus aureus 04/07/25 10:52 Blood Blood Culture - Preliminary Staphylococcus aureus
[2025-04-11] VITALS: PULSE 44
[2025-04-11 03:33] LABS: DNA (ds) Antibody. 5 IU/mL
[2025-04-11 04:00] VITALS: PULSE 48
[2025-04-11 05:33] LABS: Basophils Percent Auto 0.8 % (0.2-1.2); Eosinophils Absolute Auto 0.4 K/mm3 (0-0.3); Eosinophils Percent Auto 11.7 % (0-4.4); Hematocrit 27.5 % (37.0-47.0); Hemoglobin 8.5 g/dL (12.0-15.0); Immature Granulocyte Absolute 0.02 K/mm3 (0.00-0.031); Immature Granulocyte Percent A 0.5 % (0-0.5); Lymphocytes Absolute Auto 1.18 K/mm3 (0.9-3.2); Lymphocytes Percent Auto 32.2 % (18.3-44.2); Mean Corpuscular HGB Conc 30.9 g/dl (32-36); Mean Corpuscular Hemoglobin 25.7 pg (26-34); Mean Corpuscular Volume 83.1 fl (80-100); Mean Platelet Volume 9.3 fl (7.4-10.4); Monocytes Absolute Auto 0.3 K/mm3 (0.1-0.6); Monocytes Percent Auto 7.6 % (2.6-8.5); Neutrophils Absolute Auto 1.7 K/mm3 (1.3-6.7); Neutrophils Percent Auto 47.2 % (45.5-73.1); Platelet Count Result 153 k/mm3 (150-375); Red Blood Count 3.31 M/mm3 (4.2-5.4); White Blood Count 3.7 K/mm3 (4.5-10.0)
[2025-04-11 05:44] LABS: Alanine Aminotransferase 16 U/L (6-35); Albumin Level 2.3 g/dL (3.5-5.1); Alkaline Phosphatase 198 U/L (38-126); Anion Gap 9 mmol/L (4-12); Aspartate Amino Transferase 42 U/L (14-36); Bilirubin,Total 0.2 mg/dL (0.2-1.3); Blood Urea Nitrogen 52 mg/dL (7-17); Calcium 7.7 mg/dL (8.4-10.2); Carbon Dioxide 17 mmol/L (22-30); Chloride 113 mmol/L (98-107); Estimated CRCL calculation 7 ml/min; Estimated Glomerular Filt Rate 10; Glucose 79 mg/dL (65-110); Magnesium 1.9 mg/dL (1.6-2.3); Potassium 3.5 mmol/L (3.4-5.0); Sodium 139 mmol/L (137-145)
[2025-04-11 05:46] LABS: Vancomycin Random 11.3 ug/mL (10-20)
[2025-04-11 06:00] VITALS: BP 150/68; PULSE 57; RESP 18; TEMP 36.3; O2SAT 99
[2025-04-11] MEDS: VANCOMYCIN 500 MG/NS 100 ML 500 MG/100 ML BAG 100 MG IVPB (06:23)
--- NOTE | 2025-04-11 08:59 | P.PNIM_ITS ---
Progress Note: A&P Assessment and Plan (1) Anemia: Qualifiers: Anemia type: unspecified type Qualified Code(s): D64.9 - Anemia, unspecified Code(s): D64.9 - Anemia, unspecified Status: Acute Assessment and Plan: - Acute on chronic - Hgb in ED 3.4 (previously 12.4 in 2022), MCV and MCHC low, continue to trend - add iron, TIBC, ferritin, B12, folic acid, and TSH - transfuse if <7 plan for 3U PRBC on 04/04 with Lasix 40 mg after 2nd unit, post H&H 9.8/31.5. H&H today was 8.5/27.5. - trend H&H - stool occult negative - Iron 232. TIBC 268, % saturation 87. (2) Metabolic acidosis: Code(s): E87.20 - Acidosis, unspecified Status: Acute Assessment and Plan: * pC02 18.5 on ABG 04/07/25. * Patient received an amp of sodium bicarbonate. * Carbon dioxide 17 today from 18 yesterday on CMP. * Sodium Bicarbonate 1,300 mg PO TID. Will send pt home with this but BID per Dr. Christian. (3) Positive blood cultures: Code(s): R78.81 - Bacteremia Status: Acute Assessment and Plan: * Blood cultures from 04/07 grew gram positive cocci in clusters, MSSA * --Repeat blood cultures ordered, pending 48 hour growth until 30 AM * --ECHO resulting unremarkable, no endocarditis * Ceftriaxone 2 gram IVPB daily, Vancomycin 500 mg IVPB D/C today. One more dose of ceftriaxone 04/12 AM then pt will be D/C with Linezolid 600mg Q12hr x11 days for the MSSA infection. * Urine culture unremarkable. * Chest X-ray negative. (4) Acute renal failure: Qualifiers: Acute renal failure type: unspecified Qualified Code(s): N17.9 - Acute kidney failure, unspecified Code(s): N17.9 - Acute kidney failure, unspecified Status: Acute Assessment and Plan: - creatinine 4.24 and GFR 10, previously 0.6 and GFR >60 in 2022 - renal ultrasound: Limited evaluation secondary to poor acoustic penetration and patient positioning. Severe medical renal disease within the visualized atrophic left kidney. No left-sided hydronephrosis. - add CK 45, urine sodium, protein/creatinine 4.64, urine creatinine 36.4, urea, serum osmolality 304 and urine osmolality (pending) -Continue daily labs - UA: urine color orange, cloudy, 3+ protein, trace glucose, 3+ blood, 1+ leukocytes, >100 RBC. - bladder scan for postvoid residual PRN - monitor I&Os - nephrology consultation, appreciate recs -->Spoke to neph Dr. Christian today and he is signing off with plan for f/u with him or PCP, whichever pt will be compliant with. Plan to D/C with Sodium bicarb 1,300mg PO BID (5) Severe protein-calorie malnutrition: Code(s): E43 - Unspecified severe protein-calorie malnutrition Status: Acute Assessment and Plan: * weight 63 lb 4 oz. * Protein 6.0. * Hand I Thermal Cutter consulted, appreciate recommendations. * Nutritional ice cream TID. Regular diet. * TSH 2.820 (6) Ground-level fall: Code(s): W18.30XA - Fall on same level, unspecified, initial encounter Status: Acute Assessment and Plan: - trauma workup negative. Imaging included lumbar spine and pelvic CT. Initially denied head strike, however reporting right eye swelling post fall. Head CT negative. - fall precautions - PT/OT evaluation for discharge planning - Care coordination for discharge planning -Pt to D/C home not SNF or with HH as she wishes, APS following. (7) Ulcer of right knee: Code(s): L97.819 - Non-pressure chronic ulcer of other part of right lower leg with unspecified severity Status: Acute Assessment and Plan: * Wound care consult, recs for no wound care needed to R hip. * Silver gel and cover dressing daily for R knee which is what pt has been doing at home, will continue at D/C. (8) Bradycardia: Code(s): R00.1 - Bradycardia, unspecified Status: Acute Assessment and Plan: * Cardiology consulted, Atenolol discontinued permanently. * Telemetry NSR 71 bpm today (9) Hypertension: Qualifiers: Hypertension type: unspecified Qualified Code(s): I10 - Essential (primary) hypertension Code(s): I10 - Essential (primary) hypertension Status: Chronic Assessment and Plan: - Cardiology saw patient, Atenolol discontinued. - Blood [id number]/68 today, will continue to monitor. 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 The patient presents here from home via EMS on 04/04 for further evaluation post mechanical ground level fall. She reports she was getting up out of bed to transfer to her wheelchair when her board slid out from under her. She fell onto her bottom with a negative head strike and no loss of consciousness. However, patient arrives with swelling to her right eye which she reports is new post-fall. Post fall she reports low back pain and pain to her right hip. She was noted to have a wound to her right knee which she reports has been present for some time. She is currently living at home, son lives with her. She has a son who lives in [place] who tries to help, however she refuses per his statements to the ER provider and has previously been placed in a nursing facility but did not like it and went home. Denies dark tarry stools, hematemesis, dizziness, fatigue, or shortness of breath. Initial VS at presentation: 98? F, HR 72, R 16, 129/49, and 100% on RA. ED workup showed: No leukocytosis, hemoglobin 3.4, INR 1.2, sodium 132, potassium within normal limits, creatinine 4.7 and GFR 9 (previously 0.6 and GFR >60 in 2022), glucose 130, calcium 7.6 in the setting of hypoalbuminemia. Lumbar CT and Pelvic CT showed mild lumbar spondylosis with impingement at L4-5 posterior spinal fusion in stable appearance of multiple chronic lumbar and lower thoracic compression and burst fractures, no acute osseous abnormality, bilateral total hip arthroplasties, no acute osseous abnormality of the pelvis/proximal femurs. EKG showed sinus rhythm, rate 71, left ventricular hypertrophy and ST-T change. Throughout inpatient stay, nephrology and cardiology were consulted for CARL and bradycardia. Cards with recs to permanently discontinue atenolol and signed off on the pt. Nephrology has tried to convince pt for dialysis but has been unsuccessful as pt continues to refuse this, daily trends of labs and urine output instead. Pt also with hgb of 3.4 in the ED and was transfused with x3 units, hgb has been stable since with no acute bleeding source. Blood cultures have resulted in MSSA, has been on ceftriaxone inpatient and will be D/C with oral Linezolid to finish the duration of treatment for this. Pt also with chronic wound to R knee, wound care was consulted and agreed with her home regimen of silver gel and wrap dressing, will also be D/C with this plan. Electrolytes and UOP have been stable the past several days. Pt to f/u with PCP and nephrology if agreeable. Review of Systems Review of Systems: All systems reviewed & are unremarkable except as noted in HPI and below Exam Narrative: L AKA. Chronically ill appearing. Kyphosis. frail. disheveled. Const: General: comfortable, no acute distress and uncomfortable Other: , female, elderly, chronically ill-appearing, disheveled. HENMT: Face/Nose/Sinus: Normal nares present Mouth: Yes moist mucous membranes Eyes: General: appearance normal, both eyes and all related structures Sclera: sclerae normal Neck: Neck: supple and no JVD Resp: Effort & Inspection: normal respiratory effort Auscultation: clear to auscultation bilaterally Other: slightly diminished. Cardio: Rate: regular rate and bradycardic Rhythm: regular rhythm Other: NSR on tele 71bpm GI: Auscultation: normal bowel sounds Other: Abdomen soft, nondistended, nontender. Normoactive bowel sounds in all quadrants. Back/Spine/Pelvis: Back: other (Kyphosis) Skin: General skin exam: normal color Other: Rash to upper back improving, no drainage, appears as if just scratch jordan now. Chronic wound to right knee, erythematous with edema. Neuro: Speech: normal speech Other: A&O x4, moving all extremities, normal speech. However, patient poor historian. Extrem: General: no pedal edema Other: Left AKA See SKIN Psych: Mental Status: mental status grossly normal Affect: normal affect Objective Data Vital Signs Vital Signs: Vital Signs - 24 hr 04/10/25 12:00 04/10/25 14:00 04/10/25 16:00 Temperature 97.3 F L Pulse Rate 70 63 63 Respiratory Rate 18 Blood Pressure 104/52 L Pulse Oximetry 96 Oxygen Delivery 04/10/25 20:00 04/10/25 20:00 04/10/25 21:44 Temperature 97.5 F L Pulse Rate 53 L 56 L Respiratory Rate 18 Blood Pressure 131/69 Pulse Oximetry 99 Oxygen Delivery Room Air 04/11/25 00:00 04/11/25 04:00 04/11/25 06:00 Temperature 97.3 F L Pulse Rate 44 L 48 L 57 L Respiratory Rate 18 Blood Pressure 150/68 H Pulse Oximetry 99 Oxygen Delivery Intake/Output Intake/Output: Intake & Output 04/08/25 04/09/25 04/10/25 04/11/25 23:59 23:59 23:59 23:59 Intake Total 051 802 7670 300 Output Total 700 870 900 Balance 180 -360 256 300 Meds/Results Medications: Active Medications Generic Name Dose Route Start Last Admin Trade Name Freq PRN Reason Stop Dose Admin Acetaminophen 650 mg 04/04/25 21:43 04/09/25 09:53 Acetaminophen 325 Mg Tablet PO 650 mg Q4H PRN Administration Mild Pain (1-3) Or Fever Acetaminophen 650 mg 04/07/25 10:12 04/07/25 10:21 Acetaminophen 650 Mg Suppository RECTAL 650 mg Q6H PRN Administration Mild Pain (1-3) or Fever Epoetin Sav-epbx 20,000 units 04/11/25 09:00 Epoetin Sav-Epbx 20,000 Units/Ml Vial SUB-Q 04/11/25 09:01 ONCE ONE Furosemide 40 mg 04/04/25 16:42 04/04/25 19:53 Furosemide Inj 40 Mg/4 Ml Vial IV PUSH 40 mg ONCE PRN Administration After 2nd blood transfusion Heparin Sodium (Porcine) 5,000 units 04/04/25 21:00 04/10/25 20:44 Heparin Sodium 5,000 Units/Ml Vial SUB-Q 5,000 units Q12HR LISANDRA Administration Ceftriaxone Sodium 2 gm in 100 mls @ 200 mls/hr 04/08/25 09:30 04/10/25 09:36 Rocephin 2 Gm/Ns 100 Ml IVPB Infused DAILY LISANDRA Infusion Ofloxacin 1 drop 04/04/25 23:40 04/10/25 20:44 Ofloxacin 0.3% Ophth Soln 5 Ml Btl AFFCTD EYE 1 drop QID LISANDRA Administration Perflutren Lipid Microsphere 0 ml 04/10/25 08:40 Perflutren Lipid Microspheres 1.5 Ml Vial Diluted To 10 Ml Total Volume IV PUSH 04/13/25 08:40 ONCE PRN adequate visualization Protocol Ropinirole HCl 4 mg 04/04/25 21:43 04/07/25 21:19 Ropinirole Hcl 1 Mg Tablet PO 4 mg HS PRN Administration Restless Leg(S) Sodium Bicarbonate 1,300 mg 04/08/25 09:00 04/10/25 17:32 Sodium Bicarbonate Tab 650 Mg Tablet PO 1,300 mg TID LISANDRA Administration Triamcinolone Acetonide 1 applic 04/06/25 10:10 04/10/25 20:44 Triamcinolone Acet 0.1% Cream 15 Gm Tube TOPICAL 1 applic Q12HR LISANDRA Administration Vancomycin HCl 1 each 04/09/25 08:11 Vancomycin For Acute Kidney Injury IVPB PRN PRN Vancomycin Protocol Radiology Results: ITS Impressions Lumbar Spine CT 04/04/25 13:02 IMPRESSION: 1. Mild lumbar spondylosis with impingement at L4-5 posterior spinal fusion and stable appearance of multiple chronic lumbar and lower thoracic compression and burst fractures as detailed above. No acute osseous abnormality. 2. Bilateral total hip arthroplasties. No acute osseous abnormality in the pelvis or proximal femurs. Pelvis CT 04/04/25 13:02 IMPRESSION: 1. Mild lumbar spondylosis with impingement at L4-5 posterior spinal fusion and stable appearance of multiple chronic lumbar and lower thoracic compression and burst fractures as detailed above. No acute osseous abnormality. 2. Bilateral total hip arthroplasties. No acute osseous abnormality in the pelvis or proximal femurs. Renal Ultrasound 04/04/25 22:15 IMPRESSION: Limited evaluation secondary to poor acoustic penetration and patient positioning. Severe medical renal disease within the visualized atrophic left kidney. No left-sided hydronephrosis. Chest X-Ray 04/07/25 11:03 IMPRESSION: 1: NO ACUTE CARDIOPULMONARY DISEASE. Head CT 04/07/25 12:12 Impression: No large acute intracranial hemorrhage or suspicious significant mass effect. Labs Labs: Laboratory Results - last 24 hr 04/08/25 04/11/25 05:33 05:21 WBC 3.7 L RBC 3.31 L Hgb 8.5 L Hct 27.5 L MCV 83.1 MCH 25.7 L MCHC 30.9 L RDW 20.0 H Plt Count 153 MPV 9.3 Immature Gran % (Auto) 0.5 Neut % (Auto) 47.2 Lymph % (Auto) 32.2 [place] % (Auto) 7.6 Eos % (Auto) 11.7 H Baso % (Auto) 0.8 Lymph # (Auto) 1.18 [place] # (Auto) 0.3 Eos # (Auto) 0.4 H Baso # (Auto) 0.0 Abs Immat Gran (auto) 0.02 Absolute Neuts (auto) 1.7 Absolute Nucleated RBC 0.000 Nucleated RBC % 0.0 Sodium 139 Potassium 3.5 Chloride 113 H Carbon Dioxide 17 L Anion Gap 9 BUN 52 H Creatinine 4.24 H Estim Creat Clear Calc 7 Estimated GFR 10 L Glucose 79 Calcium 7.7 L Magnesium 1.9 Total Bilirubin 0.2 AST 42 H ALT 16 Alkaline Phosphatase 198 H Total Protein 6.0 L Albumin 2.3 L Random Vancomycin 11.3 Anti-DNA Antibody 5 H Hep B Core Total Ab Non-reactive Quality VTE Prophylaxis VTE prophylaxis: pharmacologic ordered
[2025-04-11 09:50] VITALS: PULSE 71; O2SAT 97
[2025-04-11] MEDS: cefTRIAXone 2 GM/NS 100 ML 2 GM/100 ML BAG IVPB (09:51)
[2025-04-11] MEDS: SODIUM BICARBONATE TAB 650 MG TABLET 1300 MG PO ×3 (09:52→17:49)
[2025-04-11] MEDS: HEPARIN SODIUM 5,000 UNITS/ML VIAL 5000 UNITS SUB-Q ×2 (09:53→20:46)
[2025-04-11] MEDS: TRIAMCINOLONE ACET 0.1% CREAM 15 GM TUBE 1 APPLIC TOPICAL ×2 (09:53→20:46)
[2025-04-11] MEDS: OFLOXACIN 0.3% OPHTH SOLN 5 ML BTL 1 DROP AFFCTD EYE ×4 (09:53→20:46)
[2025-04-11] MEDS: EPOETIN ALFA-EPBX 20,000 UNITS/ML VIAL 20000 UNITS SUB-Q (10:46)
--- NOTE | 2025-04-11 12:50 | P.PNNP_ITS ---
Progress Note: A&P Assessment and Plan (1) Renal insufficiency: Code(s): N28.9 - Disorder of kidney and ureter, unspecified Status: Acute Assessment and Plan: * no improvement noted (but relatively stable) * significant decline as noted by admission labs * acute versus acute on chronic versus chronic?? -- suspect the latter... * only previous labs available are from July 2023 -- creatinine normal at that time * evaluation to date noted: * renal ultrasound with small atrophic left kidney; unable to visualize right kidney due patient's contracted state * urine eosinophils negative * normal CPK * nephrotic range proteinuria * urine electrolytes prerenal * serologies noted: * DOT positive * indeterminate dsDNA-Ab * ANCA pending * anti-GBM-Ab negative * complements negative * kappa/lambda ratio normal * SPEP with poorly defined band (possible M-spike) migrating in the gamma region * UPEP pending; serum/urine immunofixation pending * surprisingly, no critical electrolytes noted and stable volume status although she does have a metabolic acidosis * if her renal function does not improve, she remains at risk for DIRECT CARE STAFFER/dialysis in the near future * however, no need for urgent DIRECT CARE STAFFER/dialysis at this time...stable electrolytes, improving acidosis, and no evidence of volume overload or uremia * nevertheless, the patient is not interested in DIRECT CARE STAFFER/dialysis as a treatment option... * follow trend of repeat labs and UOP (2) Anemia: Qualifiers: Anemia type: unspecified type Qualified Code(s): D64.9 - Anemia, unspecified Code(s): D64.9 - Anemia, unspecified Status: Acute Assessment and Plan: * quite severe on presenation * s/p PRBC transfusion with improvement in H/H * no evidence of GI bleed (hemoccult negative) * suspect related to severe renal insufficiency * suspect will need outpatient ADRIENNE * will dose while as inpatient * follow trend of H/H (3) Bacteremia: Code(s): R78.81 - Bacteremia Status: Acute Assessment and Plan: * blood culture data noted * from 04/07 - Staphylococcus aureus * from 04/10 - negative to date * source not clear... * right knee wound? * TTE negative for vegetations * follow repeat cultures * on antibiotics (4) Ground-level fall: Code(s): W18.30XA - Fall on same level, unspecified, initial encounter Status: Acute Assessment and Plan: * trauma workup negative * imaging to date without any acute injuries * fall precautions * PT/OT evaluation (5) Metabolic acidosis: Code(s): E87.20 - Acidosis, unspecified Status: Acute Assessment and Plan: * slow improvement * due to renal dysfunction possibly worsened by previous normal saline IVFs * continue oral sodium bicarbonate (6) Bradycardia: Code(s): R00.1 - Bradycardia, unspecified Status: Acute Assessment and Plan: * Cardiology recommendations noted * atenolol discontinued * follow heart rate (7) Hypertension: Qualifiers: Hypertension type: unspecified Qualified Code(s): I10 - Essential (primary) hypertension Code(s): I10 - Essential (primary) hypertension Status: Chronic Assessment and Plan: * reasonable control * however, has had bouts of hypotension as well * atenolol discontinued per Cardiology recommendations * follow trend of hemodynamics (8) Ulcer of right knee: Code(s): L97.819 - Non-pressure chronic ulcer of other part of right lower leg with unspecified severity Status: Acute Assessment and Plan: * chronic per patient * no evidence of acute infection * local wound care I was able discuss the issue of the patient's severe renal dysfunction with the patient's son by phone on the morning of 04/09 (with the use of the patient's cellphone); I voiced my concerns that she will likely require renal replacement therapy/dialysis in the near future although she has no acute indications for it at this very moment. I also told her son that in spite of the fact that she may need dialysis in the future, his mother is adamantly refusing this intervention under any circumstance. Not much else to add -- will continue to follow from a distance. Subjective Date/time seen: 04/11/25 12:50 Interval history: Follow-up for renal insufficiency/kidney disease (suspect chronic) Renal function remains about the same without any significant improvement (but no worsening either); stable electrolytes and metabolic acidosis improving with oral sodium bicarbonate therapy; keeps asking when she can go home (as I need to pay my bills and take care of my house.) Exam 2 Narrative: General: elderly, frail and chronically ill appearing female in NAD Heart: normal S1 and S2; no rub Lungs: clear anteriorly Abdomen: soft, nontender, nondistended, positive bowel sounds Extremities: no cyanosis or clubbing; no edema; left AKA Skin: right knee dressings in place Objective Data Vital Signs Vital Signs: Vital Signs Temp Pulse Resp BP Pulse Ox O2 Del Method 04/11/25 12:00 97.3 F L 71 18 147/53 H 97 04/11/25 06:00 97.3 F L 57 L 18 150/68 H 99 04/11/25 04:00 48 L 04/11/25 00:00 44 L 04/10/25 21:44 97.5 F L 56 L 18 131/69 99 04/10/25 20:00 53 L 04/10/25 20:00 Room Air 04/10/25 16:00 63 Intake/Output Intake/Output: Intake & Output 04/08/25 04/09/25 04/10/25 04/11/25 23:59 23:59 23:59 23:59 Intake Total 722 758 0831 540 Output Total 700 870 900 Balance 180 -360 256 540 Meds/Results Medications: Active Medications Generic Name Dose Route Start Last Admin Trade Name Freq PRN Reason Stop Dose Admin Acetaminophen 650 mg 04/04/25 21:43 04/09/25 09:53 Acetaminophen 325 Mg Tablet PO 650 mg Q4H PRN Administration Mild Pain (1-3) Or Fever Acetaminophen 650 mg 04/07/25 10:12 04/07/25 10:21 Acetaminophen 650 Mg Suppository RECTAL 650 mg Q6H PRN Administration Mild Pain (1-3) or Fever Furosemide 40 mg 04/04/25 16:42 04/04/25 19:53 Furosemide Inj 40 Mg/4 Ml Vial IV PUSH 40 mg ONCE PRN Administration After 2nd blood transfusion Heparin Sodium (Porcine) 5,000 units 04/04/25 21:00 04/11/25 09:53 Heparin Sodium 5,000 Units/Ml Vial SUB-Q 5,000 units Q12HR LISANDRA Administration Ceftriaxone Sodium 2 gm in 100 mls @ 200 mls/hr 04/08/25 09:30 04/11/25 09:51 Rocephin 2 Gm/Ns 100 Ml IVPB 200 mls/hr DAILY LISANDRA Administration Ofloxacin 1 drop 04/04/25 23:40 04/11/25 12:09 Ofloxacin 0.3% Ophth Soln 5 Ml Btl AFFCTD EYE 1 drop QID LISANDRA Administration Perflutren Lipid Microsphere 0 ml 04/10/25 08:40 Perflutren Lipid Microspheres 1.5 Ml Vial Diluted To 10 Ml Total Volume IV PUSH 04/13/25 08:40 ONCE PRN adequate visualization Protocol Ropinirole HCl 4 mg 04/04/25 21:43 04/07/25 21:19 Ropinirole Hcl 1 Mg Tablet PO 4 mg HS PRN Administration Restless Leg(S) Sodium Bicarbonate 1,300 mg 04/08/25 09:00 04/11/25 12:08 Sodium Bicarbonate Tab 650 Mg Tablet PO 1,300 mg TID LISANDRA Administration Triamcinolone Acetonide 1 applic 04/06/25 10:10 04/11/25 09:53 Triamcinolone Acet 0.1% Cream 15 Gm Tube TOPICAL 1 applic Q12HR LISANDRA Administration Radiology Results: ITS Impressions Lumbar Spine CT 04/04/25 13:02 IMPRESSION: 1. Mild lumbar spondylosis with impingement at L4-5 posterior spinal fusion and stable appearance of multiple chronic lumbar and lower thoracic compression and burst fractures as detailed above. No acute osseous abnormality. 2. Bilateral total hip arthroplasties. No acute osseous abnormality in the pelvis or proximal femurs. Pelvis CT 04/04/25 13:02 IMPRESSION: 1. Mild lumbar spondylosis with impingement at L4-5 posterior spinal fusion and stable appearance of multiple chronic lumbar and lower thoracic compression and burst fractures as detailed above. No acute osseous abnormality. 2. Bilateral total hip arthroplasties. No acute osseous abnormality in the pelvis or proximal femurs. Renal Ultrasound 04/04/25 22:15 IMPRESSION: Limited evaluation secondary to poor acoustic penetration and patient positioning. Severe medical renal disease within the visualized atrophic left kidney. No left-sided hydronephrosis. Chest X-Ray 04/07/25 11:03 IMPRESSION: 1: NO ACUTE CARDIOPULMONARY DISEASE. Head CT 04/07/25 12:12 Impression: No large acute intracranial hemorrhage or suspicious significant mass effect. Labs Labs: Laboratory Tests 04/11/25 05:21 04/11/25 05:21 Calcium 7.7 L Magnesium 1.9 Total Bilirubin 0.2 AST 42 H ALT 16 Alkaline Phosphatase 198 H Total Protein 6.0 L Albumin 2.3 L Microbiology 04/07/25 10:52 Blood Blood Culture - Final Staphylococcus aureus 04/07/25 10:44 Blood Blood Culture - Preliminary Staphylococcus aureus 04/10/25 08:55 Blood Blood Culture - Preliminary 04/10/25 08:50 Blood Blood Culture - Preliminary 04/08/25 13:06 Urine Clean Catch Urine Culture Reflexed - Final
[2025-04-11 14:00] VITALS: BP 147/53; PULSE 71; RESP 18; TEMP 36.3; O2SAT 97
[2025-04-11 14:04] LABS: Anti Nuclear Antibody Pattern Nuclear, Homogeneous; Anti Nuclear Antibody Titer 1:40 titer
[2025-04-11 21:01] VITALS: BP 134/66; PULSE 61; RESP 20; TEMP 36.2; O2SAT 99
[2025-04-12 05:34] LABS: Basophils Percent Auto 0.7 % (0.2-1.2); Eosinophils Absolute Auto 0.5 K/mm3 (0-0.3); Eosinophils Percent Auto 11.3 % (0-4.4); Hematocrit 29.6 % (37.0-47.0); Immature Granulocyte Absolute 0.01 K/mm3 (0.00-0.031); Immature Granulocyte Percent A 0.2 % (0-0.5); Lymphocytes Absolute Auto 1.33 K/mm3 (0.9-3.2); Lymphocytes Percent Auto 31.4 % (18.3-44.2); Mean Corpuscular HGB Conc 30.4 g/dl (32-36); Mean Corpuscular Hemoglobin 25.7 pg (26-34); Mean Corpuscular Volume 84.6 fl (80-100); Mean Platelet Volume 9.4 fl (7.4-10.4); Monocytes Absolute Auto 0.3 K/mm3 (0.1-0.6); Monocytes Percent Auto 6.4 % (2.6-8.5); Neutrophils Absolute Auto 2.1 K/mm3 (1.3-6.7); Platelet Count Result 174 k/mm3 (150-375); Red Cell Distribution Width 20.3 % (11.5-14.5); White Blood Count 4.2 K/mm3 (4.5-10.0)
[2025-04-12 05:54] LABS: Alanine Aminotransferase 16 U/L (6-35); Albumin Level 2.6 g/dL (3.5-5.1); Alkaline Phosphatase 201 U/L (38-126); Anion Gap 9 mmol/L (4-12); Aspartate Amino Transferase 38 U/L (14-36); Bilirubin,Total 0.3 mg/dL (0.2-1.3); Blood Urea Nitrogen 48 mg/dL (7-17); Calcium 8.1 mg/dL (8.4-10.2); Carbon Dioxide 16 mmol/L (22-30); Chloride 114 mmol/L (98-107); Estimated CRCL calculation 8 ml/min; Estimated Glomerular Filt Rate 11; Glucose 76 mg/dL (65-110); Magnesium 1.9 mg/dL (1.6-2.3); Potassium 3.7 mmol/L (3.4-5.0); Sodium 139 mmol/L (137-145)
[2025-04-12 06:00] VITALS: BP 137/58; PULSE 52; RESP 20; TEMP 36.4; O2SAT 99
--- NOTE | 2025-04-12 07:59 | P.DS_ITS ---
DS: Admitting Diagnosis Discharge Date 04/12/2025 Admitting Diagnosis Fall, CARL DS: Discharge Diagnosis Discharge Diagnosis (1) Anemia: Qualifiers: Anemia type: unspecified type Qualified Code(s): D64.9 - Anemia, unspecified Code(s): D64.9 - Anemia, unspecified Status: Acute Assessment and Plan: - Acute on chronic - Hgb in ED 3.4 (previously 12.4 in 2022), MCV and MCHC low, continue to trend - add iron, TIBC, ferritin, B12, folic acid, and TSH - unremarkable - transfuse if <7 plan for 3U PRBC on 04/04 with Lasix 40 mg after 2nd unit, post H&H 9.8/31.5. H&H today was 9.0/29.6. - trend H&H with PCP moving forward - stool occult negative - Iron 232. TIBC 268, % saturation 87. (2) Metabolic acidosis: Code(s): E87.20 - Acidosis, unspecified Status: Acute Assessment and Plan: * pC02 18.5 on ABG 04/07/25. * Patient received an amp of sodium bicarbonate. * Carbon dioxide 17 today from 18 yesterday on CMP. * Sodium Bicarbonate 1,300 mg PO TID. Will send pt home with this but BID per Dr. Christian. (3) Positive blood cultures: Code(s): R78.81 - Bacteremia Status: Acute Assessment and Plan: * Blood cultures from 04/07 grew gram positive cocci in clusters, MSSA * --Repeat blood cultures ordered, pending 48 hour growth until 04/12 AM - prelim no growth to date * --ECHO resulting unremarkable, no endocarditis * Ceftriaxone 2 gram IVPB daily, Vancomycin 500 mg IVPB D/C 04/11. One more dose of ceftriaxone 04/12 AM then pt will be D/C with Linezolid 600mg Q12hr x11 days for the MSSA infection. * Urine culture unremarkable. * Chest X-ray negative. (4) Acute renal failure: Qualifiers: Acute renal failure type: unspecified Qualified Code(s): N17.9 - Acute kidney failure, unspecified Code(s): N17.9 - Acute kidney failure, unspecified Status: Acute Assessment and Plan: - creatinine 4.09 and GFR 11, previously 0.6 and GFR >60 in 2022 - renal ultrasound: Limited evaluation secondary to poor acoustic penetration and patient positioning. Severe medical renal disease within the visualized atrophic left kidney. No left-sided hydronephrosis. - add CK 45, urine sodium, protein/creatinine 4.64, urine creatinine 36.4, urea, serum osmolality 304 and urine osmolality (pending) -Continue daily labs - UA: urine color orange, cloudy, 3+ protein, trace glucose, 3+ blood, 1+ leukocytes, >100 RBC. - bladder scan for postvoid residual PRN - monitor I&Os - nephrology consultation, appreciate recs -->Spoke to neph Dr. Christian on 04/11 and he is signing off with plan for f/u with him or PCP, whichever pt will be compliant with. Plan to D/C with Sodium bicarb 1,300mg PO BID (5) Severe protein-calorie malnutrition: Code(s): E43 - Unspecified severe protein-calorie malnutrition Status: Acute Assessment and Plan: * Weight 63 lb 4 oz. * Protein 6.0. * Registered Travel Nurse consulted, appreciate recommendations. * Nutritional ice cream TID. Regular diet. Encouraged home caloric intake. * TSH 2.820 (6) Ground-level fall: Code(s): W18.30XA - Fall on same level, unspecified, initial encounter Status: Acute Assessment and Plan: - trauma workup negative. Imaging included lumbar spine and pelvic CT. Initially denied head strike, however reporting right eye swelling post fall. Head CT negative. - fall precautions - PT/OT evaluation for discharge planning - Care coordination for discharge planning -Pt to D/C home not SNF or with HH as she wishes, APS following. (7) Ulcer of right knee: Code(s): L97.819 - Non-pressure chronic ulcer of other part of right lower leg with unspecified severity Status: Acute Assessment and Plan: * Wound care consult, recs for no wound care needed to R hip. * Silver gel and cover dressing daily for R knee which is what pt has been doing at home, will continue at D/C. (8) Bradycardia: Code(s): R00.1 - Bradycardia, unspecified Status: Acute Assessment and Plan: * Cardiology consulted, Atenolol discontinued permanently. * Will start Losartan 50mg upon D/C until PCP f/u for HTN (9) Hypertension: Qualifiers: Hypertension type: unspecified Qualified Code(s): I10 - Essential (primary) hypertension Code(s): I10 - Essential (primary) hypertension Status: Chronic Assessment and Plan: - Cardiology saw patient, Atenolol discontinued. - Blood [id number] today, will continue to monitor. 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 The patient presents here from home via EMS on 04/04 for further evaluation post mechanical ground level fall. She reports she was getting up out of bed to t [employer]atives[employer] to her wheelchair when her board slid out from under her. She fell onto her bottom with a negative head strike and no loss of consciousness. However, patient arrives with swelling to her right eye which she reports is new post- fall. Post fall she reports low back pain and pain to her right hip. She was noted to have a wound to her right knee which she reports has been present for some time. She is currently living at home, son lives with her. She has a son who lives in [place] who tries to help, however she refuses per his statements to the ER provider and has previously been placed in a nursing facility but did not like it and went home. Denies dark tarry stools, hematemesis, dizziness, fatigue, or shortness of breath. Initial VS at presentation: 98? F, HR 72, R 16, 129/49, and 100% on RA. ED workup showed: No leukocytosis, hemoglobin 3.4, INR 1.2, sodium 132, potassium within normal limits, creatinine 4.7 and GFR 9 (previously 0.6 and GFR >60 in 202), glucose 130, calcium 7.6 in the setting of hypoalbuminemia. Lumbar CT and Pelvic CT showed mild lumbar spondylosis with impingement at L4-5 posterior spinal fusion in stable appearance of multiple chronic lumbar and low er thoracic compression and burst fractures, no acute osseous abnormality, bilateral total hip arthroplasties, no acute osseous abnormality of the pelvis/proximal femurs. EKG showed sinus rhythm, rate 71, left ventricular hypertrophy and ST-T change. Throughout inpatient stay, nephrology and cardiology were consulted for CARL and bradycardia. Cards with recs to permanently discontinue atenolol and signed off on the pt. Nephrology has tried to convince pt for dialysis but has been unsuccessful as pt continues to refuse this, daily trends of labs and urine output instead. Pt also with hgb of 3.4 in the ED and was transfused with x3 units, hgb has been stable since with no acute bleeding source. Blood cultures have resulted in MSSA, has been on ceftriaxone inpatient and will be D/C with oral Linezolid to finish the duration of treatment for this. Pt also with chronic wound to R knee, wound care was consulted and agreed with her home regimen of silver gel and wrap dressing, will also be D/C with this plan. Electrolytes and UOP have been stable the past several days. Pt to f/u with PCP and nephrology if agreeable. Status at Discharge Cognitive/behavioral status at discharge: Stable Time Spent with Patient Time attestation: Total time spent providing and/or coordinating discharge services: Exam Narrative: L AKA. Chronically ill appearing. Kyphosis. frail. disheveled. Const: General: comfortable, no acute distress and uncomfortable Other: , female, elderly, chronically ill-appearing, disheveled. HENMT: Face/Nose/Sinus: Normal nares present Mouth: Yes moist mucous membranes and Yes dry mucous membranes Eyes: General: appearance normal, both eyes and all related structures Sclera: sclerae normal Other: Healing ecchymosis below R eye Neck: Neck: supple and no JVD Resp: Effort & Inspection: normal respiratory effort Auscultation: clear to auscultation bilaterally Other: slightly diminished. Cardio: Rate: bradycardic Rhythm: regular rhythm GI: Auscultation: normal bowel sounds Other: Abdomen soft, nondistended, nontender. Normoactive bowel sounds in all quadrants. Back/Spine/Pelvis: Back: other (Kyphosis) Skin: General skin exam: normal color Other: Rash to upper back improving, no drainage, appears as if just scratch jordan now. Healed. Chronic wound to right knee, erythematous with edema. Dressing applied. Neuro: Speech: normal speech Other: A&O x4, moving all extremities, normal speech. However, patient poor historian. Extrem: General: no pedal edema Other: Left AKA See SKIN Psych: Mental Status: mental status grossly normal Affect: normal affect DS: Data Data Completed and Pending Pending studies at discharge: Final blood culture results Labs on day of discharge: Labs from last 24 hours 04/12/25 04/11/25 04/08/25 05:07 22:08 05:33 WBC 4.2 L RBC 3.50 L Hgb 9.0 L Hct 29.6 L MCV 84.6 MCH 25.7 L MCHC 30.4 L RDW 20.3 H Plt Count 174 MPV 9.4 Immature Gran % (Auto) 0.2 Neut % (Auto) 50.0 Lymph % (Auto) 31.4 [place] % (Auto) 6.4 Eos % (Auto) 11.3 H Baso % (Auto) 0.7 Lymph # (Auto) 1.33 [place] # (Auto) 0.3 Eos # (Auto) 0.5 H Baso # (Auto) 0.0 Abs Immat Gran (auto) 0.01 Absolute Neuts (auto) 2.1 Absolute Nucleated RBC 0.000 Nucleated RBC % 0.0 Sodium 139 Potassium 3.7 Chloride 114 H Carbon Dioxide 16 L Anion Gap 9 BUN 48 H Creatinine 4.09 H Estim Creat Clear Calc 8 Estimated GFR 11 L Glucose 76 Calcium 8.1 L Magnesium 1.9 Total Bilirubin 0.3 AST 38 H ALT 16 Alkaline Phosphatase 201 H Total Protein 6.0 L Albumin 2.6 L Serum Immunofixation Pending Urine Immunofixation Pending DOT Screen Positive A DOT Titer 1:40 H DOT Pattern Nuclear, homogeneous A Glomerular Base Memb Ab <1.0 Preliminary micro results at discharge 04/07/25 10:44 Blood Culture - Preliminary Blood Staphylococcus aureus 04/10/25 08:55 Blood Culture - Preliminary Blood 04/10/25 08:50 Blood Culture - Preliminary Blood Discharge Plan Discharge Attending physician on discharge: Antonia Dan Consulting providers: Maci Christian; Julia Torres Discharging Clinician: Antonia Dan Anticipated Discharge Date/Time: 04/12/25 12:00 Patient Disposition: Home Activity: may shower and as tolerated Diet: regular Discharge Instructions: 1. The plant technician/control room operator wants you to stop taking your atenolol permanent as it makes your heart rate low. We are going to send you home with Losartan 50mg which is a new high blood pressure medicine that should not effect your heart rate, you can take this once daily. Remember that this is a new medication so keep an eye out for issues breathing, developing a rash, or any other issues that may arise with starting a new medication. 2. The nephrology team would like to see you in their office IF you decide to continue with dialysis, I have attached Dr. Christian's information on your discharge packet for your reference. They also recommend that you continue taking the sodium bicarbonate supplement to help with your kidney function, I wrote you for this script today. 3. Starting tomorrow (04/13), you will take the oral antibiotic, Linezolid, twice daily for your blood infection. You will need to pick this up from the pharmacy along with your high BP medication (Losartan), and your sodium bicarbonate supplement. It is important to follow-up with your primary care provider to keep an eye on your kidneys as well as refill the medications for you that I have sent you home with today. Continue to check your blood pressure and blood sugar at home if applicable. Keep your scheduled appts with your primary care provider and any specialist that you may see. Return to the emergency department if you develop sudden shortness of breath, chest pain, a fever of greater than 101.5, or nausea, vomiting, abd pain, or diarrhea that does not go away. Follow-up with your primary care provider within 1-2 weeks, they will want to be updated on your inpatient stay in the hospital. Thank you for [facility] for your healthcare needs. Patient Instructions: Antibiotic Form, Losartan (By mouth), Linezolid (By mouth), Bacteremia (GEN) Patient Language: Japanese Stand Alone Forms: General Discharge Information Follow-up/Referrals: Maci Christian MD [Physician] - 2 Weeks Santhosh,Tyler Arias MD [Primary Care Provider] - 1 Week Discharge Medications: New sodium bicarbonate 650 mg Tablet 1,300 mg PO BID 30 Days Qty: 120 1RF linezolid 600 mg tablet 600 mg PO Q12H 11 Days Qty: 22 0RF Rx Instructions: Start the morning of 04/13. Take this twice daily, once in the morning and once in the evening. losartan 50 mg tablet 50 mg PO DAILY Qty: 90 1RF Continued ropinirole 4 mg tablet 4 mg PO HS PRN (Reason: Restless Leg(S)) acetaminophen [Mapap (acetaminophen)] 325 mg Tablet 650 mg PO Q4H PRN (Reason: Mild Pain (1-3) Or Fever) Qty: 0 0RF Silver-Sept 200 mcg/gram Gel 1 applic topical DAILY 30 Days Qty: 0 0RF Patient Comments: apply to right knee Discontinued atenolol [Tenormin] 50 mg tablet 50 mg PO DAILY Date of admission: 04/04/25 14:47 Primary Care Provider: SanthoshTyler Admitting Provider: Chelsea Irene Attending physician on admission: Antonia Dan Condition: Stable Quality VTE Prophylaxis VTE prophylaxis: pharmacologic ordered Hospitalist MIPS Heart Failure (Exclusion) Patient has history of Heart Transplant or Left Ventricular Assistive Device?: No IF YES, STOP HERE Heart Failure (Qualifier) Patient has current or prior documentation of LVEF less than or equal to 40%, or mod/servere depressed LVSF?: No IF NO, STOP HERE
[2025-04-12] MEDS: cefTRIAXone 2 GM/NS 100 ML 2 GM/100 ML BAG IVPB (09:33)
[2025-04-12] MEDS: HEPARIN SODIUM 5,000 UNITS/ML VIAL 5000 UNITS SUB-Q (09:34)
[2025-04-12] MEDS: SODIUM BICARBONATE TAB 650 MG TABLET 1300 MG PO ×2 (09:34→13:18)
[2025-04-12] MEDS: TRIAMCINOLONE ACET 0.1% CREAM 15 GM TUBE 1 APPLIC TOPICAL (09:35)
[2025-04-12] MEDS: OFLOXACIN 0.3% OPHTH SOLN 5 ML BTL 1 DROP AFFCTD EYE ×2 (09:35→13:19)
--- NOTE | 2025-04-12 11:18 | PCNFU ---
Nutrition Follow-Up Complete: Severe Protein Calorie Malnutrition as related to inadequate protein energy intake as evidenced by < 75% of EER for > 1 month, severe subcutaneous fat loss (orbital fat pads) and muscle wasting ( temporalis, clavicle) Goal:Meet estimated nutritional needs Pt progressing towards goal Pt current nutrition is Regular, Ensure clear TID. Nutrition recommendation: continue with current plan of care Last recorded weight is 41 kg. Bowel Motility: +BM 04/11 Labs Reviewed: Hgb:9.0, HCT:29.6, BUN:48, Cr:4.09 Meds Noted: heparin Skin: WNL Additional Notes: Pt continues on a regular diet, intake 50-100% at this time and improved some, Ensure Clear ordered for supplement per preference. Agree with orders, encourage po intake. Will monitor weight, labs, skin, diet orders, meds every 5 days.
[2025-04-12 12:49] LABS: ANCA Screen NEGATIVE (NEGATIVE)
[2025-04-12] MEDS: EPOETIN ALFA-EPBX 20,000 UNITS/ML VIAL 20000 UNITS SUB-Q (13:19)
== END 2025-04-12 14:41 | disposition home or self-care (01) | DRG 682 ==
LOC: ANHED 14:45 → ANH3MED 15:50
PROVIDERS: Internal Medicine Nephrology; Nurse Practitioner Family; Student in an Organized Health Care Education/Training Program; Admitting Provider Family Medicine; Emergency Provider Emergency Medicine; PCP Family Medicine
DX: N17.9 Acute kidney failure, unspecified (principal); E43 Unspecified severe protein-calorie malnutrition; R78.81 Bacteremia; E87.1 Hypo-osmolality and hyponatremia; L97.819 Non-pressure chronic ulcer of other part of right lower leg with unspecified severity; E87.20 Acidosis, unspecified; Z68.1 Body mass index [BMI] 19.9 or less, adult; I10 Essential (primary) hypertension; I49.5 Sick sinus syndrome; D63.1 Anemia in chronic kidney disease; E86.0 Dehydration; J45.909 Unspecified asthma, uncomplicated; R40.0 Somnolence; R00.1 Bradycardia, unspecified; M47.816 Spondylosis without myelopathy or radiculopathy, lumbar region; M19.90 Unspecified osteoarthritis, unspecified site; F32.A Depression, unspecified; F41.9 Anxiety disorder, unspecified; Z96.651 Presence of right artificial knee joint; Z96.643 Presence of artificial hip joint, bilateral; W19.XXXA Unspecified fall, initial encounter; Z89.612 Acquired absence of left leg above knee; Z98.1 Arthrodesis status
CPT/HCPCS: 36415; 36430; 36600; 70450; 71045; 72131; 72192; 76775; 80048; 80053; 80202; 81001; 81050; 82274; 82550; 82570; 82607; 82728; 82746; 82805; 82948; 83520; 83540; 83550; 83605; 83735; 83883; 83930; 83935; 84100; 84155; 84156; 84165; 84166; 84300; 84443; 84540; 85018; 85025; 85610; 85730; 85999; 86036; 86038; 86039; 86140; 86160; 86225; 86334; 86335; 86704; 86706; 86850; 86900; 86901; 86923; 87040; 87086; 87181; 87340; 93005; 93306; 97165; 97535; 99285; A9270; J0696; J1644; J1938; J3370; J3475; J7030; J7040; J7050; P9016; Q5105

== ENCOUNTER 2025-04-19 15:55 | Inpatient (IN) | payer MEDICARE, MEDICAID, SELFPAY ==
[2025-04-19] VITALS (19 sets, daily range): BP systolic 69–113; BP diastolic 33–65; PULSE 42–87; RESP 15–25; TEMP 33.4–35.6; O2SAT 99–100; BMI 16.5
--- NOTE | ~2025-04-19 | XR_ITS ---
EXAMINATION: XR chest 1V Exam Date/Time: 04/19/2025 17:45 CDT HISTORY: cough Comparison: 04/07/2025. RESULT: Lines, tubes, and devices: Cholecystectomy clips. Lungs and pleura: Rightward rotation. Lordotic positioning. No focal consolidation, large pleural eff usion, or pneumothorax. Cardiomediastinal silhouette: Stable. Other: No acute osseous or upper abdominal finding. IMPRESSION: No acute cardiopulmonary process. Reviewed, dictated and finalized at location K.
--- NOTE | ~2025-04-19 | US_ITS ---
EXAMINATION: US venous doppler LE RT DATE: 04/19/2025 18:07 INDICATION: leg swelling . TECHNIQUE: Grayscale images without and with compression and Doppler images of the right lower extrem ity veins were obtained. COMPARISON: 06/28/2023 FINDINGS: Exam limited by difficulty obtaining correct positioning. The right popliteal vein is not adequately visualized. The right common femoral vein, profunda (deep) femoral vein, femoral vein, peroneal vein, posterior tibial veins, gastrocnemius vein, and greater saphenous vein are patent. IMPRESSION: Right popliteal vein not adequately visualized. Otherwise patent right lower extremity veins. No evid ence of deep venous thrombosis. Reviewed, dictated and finalized at location K. IMPRESSION: Right popliteal vein not adequately visualized. Otherwise patent right lower ex tremity veins. No evidence of deep venous thrombosis.
--- NOTE | ~2025-04-19 | CT_ITS ---
EXAMINATION: CT brain wo con DATE: 04/19/2025 17:45 INDICATION: trauma . TECHNIQUE: Computed tomography (CT) of the head was performed without intravenous contrast. The mA wa s adjusted according to patient size. Iterative reconstruction technique was employed. The dose-lengt h product was 1276.84 mGy-cm. COMPARISON: 04/07/2025. FINDINGS: No acute intracranial hemorrhage or extra-axial fluid collection. No hydrocephalus, mass, or herniation. No acute ischemic infarct. Unremarkable dural venous sinus attenuation. No acute osseous abnormality. The aerated spaces are clear. Moderate atrophy and moderate chronic white matter change. Atherosclerotic intracranial calcification . Bilateral lens replacements. IMPRESSION: No acute intracranial process. Reviewed, dictated and finalized at location K.
--- NOTE | ~2025-04-19 | CT_ITS ---
EXAMINATION: CT cervical spine wo con DATE: 04/19/2025 17:45 INDICATION: trauma TECHNIQUE: Computed tomography (CT) of the cervical spine was performed without intravenous contrast. Automated exposure control and iterative reconstruction technique were employed. The dose-length pro duct was 88.21 mGy-cm. COMPARISON: None. FINDINGS: Vertebral Body Alignment: Trace retrolisthesis at C5-6, presumably secondary to degenerative changes. Craniocervical and atlantoaxial alignment: Mild degenerative change. Alignment intact. Osseous structures/fracture: No evidence of a lytic or blastic process in the visualized spine. No e vidence of acute fracture. Cervical soft tissues: The paraspinal soft tissues planes are maintained. Degenerative changes: Multilevel moderate degenerative disc disease and facet arthropathy. No severe central canal or neural foraminal narrowing. IMPRESSION: No acute fracture or traumatic malalignment in the cervical spine. Reviewed, dictated and finalized at location K.
--- NOTE | ~2025-04-19 | XR_ITS ---
EXAM: XR hip BI 2V w AP pelvis DATE: 04/19/2025 17:55 HISTORY: fall . COMPARISON: X-ray pelvis 07/25/2023. FINDINGS: Exam severely limited by nonstandard positioning. Partially visualized uncomplicated appea ring lumbar fusion hardware. Bilateral hip arthroplasties, femoral head components are well seated. O steopenia. Velez catheter or temperature probe over the midline pelvis. No definite fracture or dislo cation. IMPRESSION: No definite fracture or hardware related complication, however examination is severely li mited by difficulty with positioning. If there is persistent pain or clinical suspicion of injury is high, consider CT of the pelvis for further evaluation. Reviewed, dictated and finalized at location K. IMPRESSION: No definite fracture or hardware related complication, however exam ination is severely limited by difficulty with positioning. If there is persis tent pain or clinical suspicion of injury is high, consider CT of the pelvis fo r further evaluation.
--- OUTSIDE RECORDS SUMMARY | 2025-04-19 16:28 | XMS_ITS | Encounter Summary ---
Author Organization [facility] Care Team Providers Care Welcome Center Attendant Name Role Phone No, Physician Primary Care Provider [phone] Tyler Trevizo MD Primary Care Provider [phone] Christiano James MD Unavailable [phone] Tyler Trevizo MD Primary Care Provider [phone] Ailyn, Physician Primary Care Provider [phone] Tyler Trevizo MD Primary Care Provider [phone] Jarek Sol DPM Unavailable [phone] Encounter Details Date Type Department Care Team (Latest Contact Info) Description 12/06/2014 Orders Only [facility] CLIN[facility] ProviderLilly MD [address] [place] [id number] Social History Tobacco Use Types Packs/Day Years Used Date Smoking Tobacco: Never Assessed Comments Unknown Sex and Gender Information Value Date Recorded Sex Assigned at Not on file Legal Sex Female 11:55 AM TICKET SPECULATOR Gender Identity Not on file Sexual Orientation Not on file documented as of this encounter Plan of Treatment Not on file documented as of this encounter Procedures Procedure Name Priority Date/Time Associated Diagnosis Comments SCAN - LABS 01/14/2017 12:00 AM TICKET SPECULATOR documented in this encounter Results * SCAN - LABS (01/14/2017 12:00 AM TICKET SPECULATOR) Narrative 01/14/2017 12:00 AM TICKET SPECULATOR Ordered by an unspecified provider. us Historical Provider Final Res ult documented in this encounter Visit Diagnoses Not on filedocumented in this encounter Additional Health Concerns Infection Onset Date Last Indicated Resolved Time COVID: Suspected 07/25/2023 07/25/2023 07/25/2023 3:34 PM CDT COVID19 Comment:Airborne + Contact precautions. Gown, Gloves, N95, eye protection or goggles. Precautions 08/05/23. Contact Biology Intern if patient worsens. LISA Denny 08/02/23 07/25/2023 07/25/2023 08/05/2023 3:06 AM C DT MRSA Comment:Contact Precautions (gown and gloves) LISA Denny 08/02/23 07/26/2023 07/26/2023 01/22/2024 3:05 AM C DT COVID: Recovered Comment:Added based on recent COVID infection. 08/05/2023 08/05/2023 11/03/2023 3:[address] documented as of this encounter Care Teams Welcome Center Attendant Relationship Specialty Start Date End Date Ailyn Physician PCP - General 12/01/18 01/10/19 Tyler Trevizo MD [address] [address] PCP - General Emergency Medicine 02/22/19 08/27/19 Tyler Trevizo MD [address] [address] PCP - General 01/11/19 02/21/19 Ailyn Physician PCP - General 01/02/20 02/07/20 Tyler Trevizo MD [address] [address] PCP - General Emergency Medicine 02/08/20 Christiano James MD [address] [facility] [address] [address] [employer] Driving [employer]orses Cardiology 02/22/19 Jarek Sol DPM [address] [place] [address] Podiatry 02/14/23 documented as of this encounter
--- OUTSIDE RECORDS SUMMARY | 2025-04-19 16:28 | XMS_ITS | Encounter Summary ---
Author Organization [facility] Care Team Providers Care Milk Bottling Machine Operator Name Role Phone No, Physician Primary Care Provider [phone] Tyler Trevizo MD Primary Care Provider [phone] Christiano James MD Unavailable [phone] Tyler Trevizo MD Primary Care Provider [phone] Ailyn, Physician Primary Care Provider [phone] Tyler Trevizo MD Primary Care Provider [phone] Jarek Sol DPM Unavailable [phone] Encounter Details Date Type Department Care Team (Latest Contact Info) Description 02/13/2015 Orders Only [facility] CLINCON[facility] ProviderLilly MD [address] [place] [address] Social History Tobacco Use Types Packs/Day Years Used Date Smoking Tobacco: Never Assessed Comments Unknown Sex and Gender Information Value Date Recorded Sex Assigned at Not on file Legal Sex Female 11:55 AM INFO ANALYST Gender Identity Not on file Sexual Orientation Not on file documented as of this encounter Plan of Treatment Not on file documented as of this encounter Procedures Procedure Name Priority Date/Time Associated Diagnosis Comments CARDIOLOGY REPORT 01/14/2017 12: 00 AM INFO ANALYST documented in this encounter Results * CARDIOLOGY REPORT (01/14/2017 12:00 AM INFO ANALYST) Anatomical Region Laterality Modality Other Narrative 01/14/2017 12:00 AM INFO ANALYST Ordered by an unspecified provider. us Historical Provider [facility] EMILY LEWIS Final Result documented in this encounter Visit Diagnoses Not on filedocumented in this encounter Additional Health Concerns Infection Onset Date Last Indicated Resolved Time COVID: Suspected 07/25/2023 07/25/2023 07/25/2023 3:34 PM CDT COVID19 Comment:Airborne + Contact precautions. Gown, Gloves, N95, eye protection or goggles. Precautions 08/05/23. Contact Siebel Solution Architect if patient worsens. LISA Denny 08/02/23 07/25/2023 07/25/2023 08/05/2023 3:06 AM C DT MRSA Comment:Contact Precautions (gown and gloves) LISA Denny 08/02/23 07/26/2023 07/26/2023 01/22/2024 3:05 AM C DT COVID: Recovered Comment:Added based on recent COVID infection. 08/05/2023 08/05/2023 11/03/2023 3:[address] documented as of this encounter Care Teams Milk Bottling Machine Operator Relationship Specialty Start Date End Date Ailyn Physician PCP - General 12/01/18 01/10/19 Tyler Trevizo MD [address] [address] PCP - General Emergency Medicine 02/22/19 08/27/19 Tyler Trevizo MD [address] [address] PCP - General 01/11/19 02/21/19 Ailyn Physician PCP - General 01/02/20 02/07/20 Tyler Trevizo MD [address] [address] PCP - General Emergency Medicine 02/08/20 Christiano James MD [address] [facility] [place] [address] Wharf Hand Cardiology 02/22/19 Jarek Sol DPM [address] [place] [address] Podiatry 02/14/23 documented as of this encounter
--- OUTSIDE RECORDS SUMMARY | 2025-04-19 16:28 | XMS_ITS | Encounter Summary ---
Author Organization [facility] Care Team Providers Care Operations Architect Name Role Phone No, Physician Primary Care Provider [phone] Tyler Trevizo MD Primary Care Provider [phone] Christiano James MD Unavailable [phone] Tyler Trevizo MD Primary Care Provider Ailyn, Physician Primary Care Provider [phone] Tyler Trevizo MD Primary Care Provider [phone] Jarek Sol DPM Unavailable [phone] Encounter Details Date Type Department Care Team (Latest Contact Info) Description 02/11/2015 Orders Only [facility] CLINCONV ProviderLilly MD [address] [place] [address] Social History Tobacco Use Types Packs/Day Years Used Date Smoking Tobacco: Never Assessed Comments Unknown Sex and Gender Information Value Date Recorded Sex Assigned at Not on file Legal Sex Female 11:55 AM FORCE VARIATION EQUIPMENT TENDER Gender Identity Not on file Sexual Orientation Not on file documented as of this encounter Plan of Treatment Not on file documented as of this encounter Procedures Procedure Name Priority Date/Time Associated Diagnosis Comments CARDIOLOGY REPORT 01/14/2017 12: 00 AM FORCE VARIATION EQUIPMENT TENDER CARDIOLOGY REPORT 01/14/2017 12: 00 AM FORCE VARIATION EQUIPMENT TENDER documented in this encounter Results * CARDIOLOGY REPORT (01/14/2017 12:00 AM FORCE VARIATION EQUIPMENT TENDER) Anatomical Region Laterality Modality Other Narrative 01/14/2017 12:00 AM FORCE VARIATION EQUIPMENT TENDER Ordered by an unspecified provider. us Historical Provider [facility] PROCE DURES Final Result * CARDIOLOGY REPORT (01/14/2017 12:00 AM FORCE VARIATION EQUIPMENT TENDER) Anatomical Region Laterality Modality Other Narrative 01/14/2017 12:00 AM FORCE VARIATION EQUIPMENT TENDER Ordered by an unspecified provider. us Historical Provider [facility] CARDIAC SERVICES PROCE DURES Final Result documented in this encounter Visit Diagnoses Not on filedocumented in this encounter Additional Health Concerns Infection Onset Date Last Indicated Resolved Time COVID: Suspected 07/25/2023 07/25/2023 07/25/2023 3:34 PM CDT COVID19 Comment:Airborne + Contact precautions. Gown, Gloves, N95, eye protection or goggles. Precautions 08/05/23. Contact Bevel Mill Operator if patient worsens. LISA Denny 08/02/23 07/25/2023 07/25/2023 08/05/2023 3:06 AM C DT MRSA Comment:Contact Precautions (gown and gloves) LISA Denny 08/02/23 07/26/2023 07/26/2023 01/22/2024 3:05 AM C DT COVID: Recovered Comment:Added based on recent COVID infection. 08/05/2023 08/05/2023 11/03/2023 3:[address] documented as of this encounter Care Teams Operations Architect Relationship Specialty Start Date End Date No, Physician PCP - General 12/01/18 01/10/19 Tyler Trevizo MD [address] [facility] [address] [place] [address] PCP - General Emergency Medicine 02/22/19 08/27/19 Tyler Trevizo MD [address] [facility] [address] [place] [address] PCP - General 01/11/19 02/21/19 No, Physician PCP - General 01/02/20 02/07/20 Tyler Trevizo MD [address] [address] PCP - General Emergency Medicine 02/08/20 Christiano James MD [address] [address] Optometric Coordinator Cardiology 02/22/19 Jarek Sol DPM [address] [place] [address] Podiatry 02/14/23 documented as of this encounter
--- OUTSIDE RECORDS SUMMARY | 2025-04-19 16:28 | XMS_ITS | Clinical Summary ---
Author Organization [facility] Address [address] [place] [address] Phone Care Team Providers Care Electrical Subcontractor Name Role Phone Christiano James MD Unavailable [phone] Tyler Trevizo MD Primary Care Provider [phone] Jarek Sol DPM Unavailable [phone] Allergies Active Allergy Reactions Criticality Noted Date [...] as the skin is very friable - Stitches/juliet to be removed 3 weeks post -op - Hemovac d/c'd by Ortho on 01/25, - Dressing over laceration changed by Ortho on 01/25 - Weight bearing as tolerated to the right lower extremity, - Physical therapy and occupational therapy evaluated and recommend placement at [facility] for continued therapy services - Pain [...] as the skin is very friable - Stitches/juliet to be removed 3 weeks post -op - Hemovac d/c'd by Ortho on 01/25, - Dressing over laceration changed by Ortho on 01/25 - Weight bearing as tolerated to the right lower extremity, - Physical therapy and occupational therapy evaluated and recommend placement at [facility] for continued therapy services - Pain [...] CDT): Impression: Patient is status post left bgsiy-ntm-jipd amputation for extensive soft tissue infection and wounds. Patient's amputation site is healed however had 1 staple remaining to her incision line. Patient is currently working with a windows security analyst for her left zvqbf-xxe-ubmd prosthetic. She is currently wearing a j2ee engineer. Plan: Remaining stable was removed. Patient has a follow-up appointment in May for re-evaluation. Recommend patient to keep her appointment. 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 Incision is healing well. Half of the juliet were removed FACING MACHINE OPERATOR. The rest of the juliet were removed in this office visit. Plan: [...] 12/07/2021 Assessment & Plan (01/23/2022 11:40 PM OCCUPATIONAL HEALTH NURSE): Pt has hx of revision of R [...] lasty on 03/07/[address] Holden at [facility] 08/24/2021 Overview (08/24/2021): Mechanical Systems Design Engineer not specified in operative note; prosthetic sizes are as follows: Patellar - 31 round Femoral - 62.5 Tibial - 67 Presence of left artificial knee joint Overview (07/02/2021): Added automatically from request for surgery [id number] s/p right total hip arthroplasty on 11/29/2018 [...] Had f/u with vascular 02/24 - all juliet removed. Referred to O&P to start prosthesis process. F/U with vascular in 3 months Assessment & Plan (02/23/2022 8:31 PM CDT): Incision continues to heal, f/u appt with Dr Castano 02/24 @ 1300. [place] removed by direct support staff - steri-strips in place Assessment & Plan [...] 01/28/20 Assessment & Plan (01/23/2022 11:35 PM OCCUPATIONAL HEALTH NURSE): Creatinine 1.20 (baseline 0.6) GFR 50 on 01/11/2022. Treated with IV fluids initially and subsequently discontinued as creatinine improved to 0.4. Avoid nephrotoxic drugs. Monitor labs Encounters Date Type Department Care Team Description 04/10/2025 Orders Only [facility] Medical Group Cardiology [address] [place] [address] Piotr Wadsworth MD from Last 3 Months Immunizations Immunization Administration Dates Next Due Influenza, Quadrivalent, Hig h Dose, Preservative Free, Intrr 08/24/2021 Influenza, Quadrivalent, Spl it, Intramuscular 07/30/2019,08/18/2018,09/10/2017,07/30 Influenza, Quadrivalent, Spl it, Preservative Free, Intramuscular 08/16/2020,07/30/2015 Influenza, Unspecified 08/14/2021,10/04/2014 Pneumococcal Polysaccharide PPV23 07/01/2020,03/2018 Tdap 01/22/2023,12/06/2014 Surgical History Surgery Date Site/Laterality Comments INCISION AND DRAINAGE HIP 04/25/2019 Left KNEE ARTHROPLASTY 09/06/2014 Left KNEE ARTHROPLASTY 03/07/[address] Mehdi Holden, [facility] TOTAL HIP ARTHROPLASTY 11/29/2018 Right TOTAL HIP [...] lasty on 03/07/[address] Holden at [facility] 08/24/2021 Mechanical Systems Design Engineer not specified i n operative note; prosthetic [...] often do you attend chur ch or congregational services? 1 to 4 times per year 07/26/2023 Do you belong to any clubs o r organizations such as moravian groups, unions, fraternal or athletic groups, or [...] place to sleep or slept in a penitentiary (including now)? No 07/26/2023 Personal Safety Answer Date Recorded Have you ever been in or are you currently in a harmful physical or emotional relationship or is someone making you feel afraid or unsafe? Denies 07/25/2023 Comments No Sex and Gender Information Value Date Recorded Sex Assigned at Not on file Legal Sex Female 11:55 AM OCCUPATIONAL HEALTH NURSE Gender Identity Not on file Sexual Orientation [...] Completed 04/25/2019 Medical Devices Implanted Type Area Mechanical Systems Design Engineer Device Identifier Shelf Expiration Date Model / Serial / Lot Arthroplasty Bilatera l: Hip Arthroplasty Bilatera l: Knee [employer] [id number] Vanguard [id number] Anterior Stabilize Inlay Knee 0d Bearing - [id number] Implanted:Qty: 1 on 11/12/2021 by Craig Anton MD at [facility] [employer] [id number] 06/03/2023 [id number] / / [id number] [employer] [id number] Biomet Ascent Maxim Primary Lock Bar Knee Component Tibial Tray - [id number] Implanted:Qty: 1 on 11/12/2021 by Craig Anton MD at [facility] [employer] [id number] 10/20/2031 [id number] / / [id number] Procedures Procedure Name Priority Date/Time Associated Diagnosis Comments CARDIOLOGY DOCUMENT SCAN Routine 04/06/2025 1:48 PM CDT CARDIOLOGY DOCUMENT SCAN Routine 04/06/2025 1:07 PM CDT HEPATITIS PANEL, ACUTE Routine 04/25/2019 7:40 AM CDT from Last 3 Months or Most Recently Relevant to Health Maintenance Results * Cardiology Document Scan (04/06/2025 1:48 PM CDT) Anatomical Region Laterality Modality Other us Piotr Wadsworth MD CV CARDIAC SERVICES PROCEDURES F inal Result * Cardiology Document Scan (04/06/2025 1:07 PM CDT) Anatomical Region Laterality Modality Other us Piotr Wadsworth MD CV CARDIAC SERVICES PROCEDURES F inal Result * Hepatitis panel, acute (04/25/2019 7:40 AM CDT) HepBsAg NONREACT NONREACTIVE [facility] Comment: Siemens CentaurXP using JETHRO (chemiluminescent immunoassay) technology. NONREACTIVE: IgM antibodies to Hepatitis B Surface antigen not detected. REACTIVE: IgM antibodies to Hepatitis B Surface antigen detected. Reactive results will be confirmed by neutralization testing. HBsAb qn 3.43 mIU/mL [facility] Comment: Siemens CentaurXP using JETHRO (chemiluminescent immunoassay) technology. 9.99 IU/L or less.....NONREACTIVE: IgM antibodies to Hepatitis B Surface antibody are not detected. 10.00 IU/L or greater..REACTIVE: IgM antibodies to Hepatitis B Surface antibody are detected. Hep B core IgM NONREACT NONREACTIVE [facility] Comment: Siemens CentaurXP using JETHRO (chemiluminescent immunoassay) technology. NONREACTIVE: IgM antibodies to Hepatitis B Core antigen not detected. EQUIVOCAL: IgM antibodies to Hepatitis B Core antigen may or may not be present. Obtain a new specimen and retest. REACTIVE: IgM antibodies to Hepatitis B Core antigen detected. Hep A IgM NONREACT NONREACTIVE [facility] Comment: Siemens CentaurXP using JETHRO (chemiluminescent immunoassay) technology. NONREACTIVE: IgM antibodies to Hepatitis A not detected. This does not exclude possibility of exposure to Hepatitis A or early acute infection. EQUIVOCAL:IgM antibodies to Hepatitis A may or may not be present. Suggest recollection and retest. REACTIVE: Antibodies to Hepatitis A detected. Hep C Ab NONREACT NONREACTIVE [facility] Comment: Siemens CentaurXP using JETHRO (chemiluminescent immunoassay) [...] MICROBIOLOGY - GENERAL O RDERABLES Final Result [facility] [address] [place] [address], [facility] [phone] from Last 3 Months or Most Recently Relevant to Health Maintenance Insurance IDPA MEDICARE [facility] AETNA [facility] MEDICARE [facility] Advance Directives For more information, please contact: [phone] Documents on File Type Date Recorded Patient Account Executive Agribusiness Expl anation ADVANCE DIRECTIVE 01/25/2022 10:09 AM DAMIAN T - Phys Order for PT Preferences ADVANCE DIRECTIVE 08/14/2021 11:11 AM Aaliyah r of Site Engineer-Medical * Full Code (Latest Code Status on [...] 6:37 PM 02/12/2022 3:44 PM Care Teams Electrical Subcontractor Relationship Specialty Start Date End Date Tyler Trevizo MD [address] [address] PCP - General Emergency Medicine 02/08/20 Christiano James MD [address] [address] Event Staff Cardiology 02/22/19 Jarek Sol DPM [address] [place] [address] Podiatry 02/14/23
--- OUTSIDE RECORDS SUMMARY | 2025-04-19 16:28 | XMS_ITS | Referral Summary ---
Author Organization [facility] Address [address] [place] [address] Phone Care Team Providers Care Hog Ringer Name Role Phone Christiano James MD Unavailable [phone] Tyler Trevizo MD Primary Care Provider [phone] Jarek Sol DPM Unavailable Encounters Date Type Department Care Team Description 04/10/2025 Orders Only [facility] Medical Group Cardiology [address] [place] [address] Piotr Wadsworth MD from Last 3 Months Allergies Active Allergy Reactions Criticality Noted Date [...] occupational therapy evaluated and recommend placement at shelter facility for continued therapy services - Pain [...] occupational therapy evaluated and recommend placement at shelter facility for continued therapy services - Pain [...] CDT): Impression: Patient is status post left dthbs-uhi-look amputation for extensive soft tissue infection and wounds. Patient's amputation site is healed however had 1 staple remaining to her incision line. Patient is currently working with a natural gas treating unit operator for her left nepzz-hkz-jhao prosthetic. She is currently wearing a wrap knitting machine operator. Plan: Remaining stable was removed. Patient has a follow-up appointment in May for re-evaluation. Recommend patient to keep her appointment. 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 Incision is healing well. Half of the devika were removed EXOTIC DANCER. The rest of the devika were removed [...] 12/07/2021 Assessment & Plan (01/23/2022 11:40 PM FRONT END DEVELOPER DESIGNER): Pt has hx of revision of R [...] lasty on 03/07/[address] Holden at [facility] 08/24/2021 Overview (08/24/2021): Finish Machine Tender not specified in operative note; prosthetic sizes are as follows: Patellar - 31 round Femoral - 62.5 Tibial - 67 Presence of left artificial knee joint Overview (07/02/2021): Added automatically from request for surgery [id number] s/p right total hip arthroplasty on 11/29/2018 [...] Castano 02/24 @ 1300. [place] removed by support staff - steri-strips in place Assessment [...] 01/28/20 Assessment & Plan (01/23/2022 11:35 PM FRONT END DEVELOPER DESIGNER): Creatinine 1.20 (baseline 0.6) GFR 50 on [...] often do you attend chur ch or muslim services? 1 to 4 times per year 07/26/2023 Do you belong to any clubs o r organizations such as spiritism groups, unions, fraternal or athletic groups, or [...] place to sleep or slept in a fdc (including now)? No 07/26/2023 Personal Safety Answer Date Recorded Have you ever been in or are you currently in a harmful physical or emotional relationship or is someone making you feel afraid or unsafe? Denies 07/25/2023 Comments No Sex and Gender Information Value Date Recorded Sex Assigned at Not on file Legal Sex Female 11:55 AM FRONT END DEVELOPER DESIGNER Gender Identity Not on file Sexual Orientation [...] on file Medical Devices Implanted Type Area Finish Machine Tender Device Identifier Shelf Expiration Date Model / Serial / Lot Arthroplasty Bilatera l: Hip Arthroplasty Bilatera l: Knee [employer] [id number] Vanguard [id number] Anterior Stabilize Inlay Knee 0d Bearing - [id number] Implanted:Qty: 1 on 11/12/2021 by Craig Anton MD at [facility] [employer] [id number] 06/03/2023 [id number] / / [id number] [employer] [id number] Biomet Ascent Maxim Primary Lock Bar Knee Component Tibial Tray - [id number] Implanted:Qty: 1 on 11/12/2021 by Craig Anton MD at [facility] [employer] [id number] 10/20/2031 [id number] / / [id number] Procedures Procedure Name Priority Date/Time Associated Diagnosis [...] (04/25/2019 7:40 AM CDT) HepBsAg NONREACT NONREACTIVE [facility] Comment: Siemens CentaurXP using JETHRO (chemiluminescent immunoassay) technology. NONREACTIVE: IgM antibodies to Hepatitis B Surface antigen not detected. REACTIVE: IgM antibodies to Hepatitis B Surface antigen detected. Reactive results will be confirmed by neutralization testing. HBsAb qn 3.43 mIU/mL [facility] Comment: Siemens CentaurXP using JETHRO (chemiluminescent immunoassay) technology. 9.99 IU/L or less.....NONREACTIVE: IgM antibodies to Hepatitis B Surface antibody are not detected. 10.00 IU/L or greater..REACTIVE: IgM antibodies to Hepatitis B Surface antibody are detected. Hep B core IgM NONREACT NONREACTIVE [facility] Comment: Siemens CentaurXP using JETHRO (chemiluminescent immunoassay) technology. NONREACTIVE: IgM antibodies to Hepatitis B Core antigen not detected. EQUIVOCAL: IgM antibodies to Hepatitis B Core antigen may or may not be present. Obtain a new specimen and retest. REACTIVE: IgM antibodies to Hepatitis B Core antigen detected. Hep A IgM NONREACT NONREACTIVE [facility] Comment: Siemens CentaurXP using JETHRO (chemiluminescent immunoassay) technology. NONREACTIVE: IgM antibodies to Hepatitis A not detected. This does not exclude possibility of exposure to Hepatitis A or early acute infection. EQUIVOCAL:IgM antibodies to Hepatitis A may or may not be present. Suggest recollection and retest. REACTIVE: Antibodies to Hepatitis A detected. Hep C Ab NONREACT NONREACTIVE [facility] Comment: Siemens CentaurXP using JETHRO (chemiluminescent [...] MICROBIOLOGY - GENERAL O RDERABLES Final Result [facility] [address] [place] [address], [facility] [phone] from Last 3 Months or Most Recently Relevant to Health Maintenance Insurance IDPA MEDICARE [facility] Address: [address] [address] [place] [address] [facility] Address: [address] [address] [place] [address] [facility] Advance Directives For more information, please contact: [phone] Documents on File Type Date Recorded Patient Computer Systems Architect Expl anation ADVANCE DIRECTIVE 01/25/2022 10:09 AM DAMIAN T - Phys Order for PT Preferences ADVANCE DIRECTIVE 08/14/2021 11:11 AM Aaliyah r of Bandoleer Packer-Medical * Full Code (Latest Code Status on [...] 6:37 PM 02/12/2022 3:44 PM Care Teams Hog Ringer Relationship Specialty Start Date End Date Tyler Trevizo MD [address] [address] PCP - General Emergency Medicine 02/08/20 Christiano James MD [address] [address] Farm Management Professor Cardiology 02/22/19 Jarek Sol DPM [address] [place] [address] Podiatry 02/14/23
--- OUTSIDE RECORDS SUMMARY | 2025-04-19 16:28 | XMS_ITS | Encounter Summary ---
Author Organization [facility] Facility Care Team Providers Care Charrer Name Role Phone No, Physician Primary Care Provider [phone] Tyler Trevizo MD Primary Care Provider [phone] Christiano James MD Unavailable [phone] Tyler Trevizo MD Primary Care Provider [phone] Ailyn, Physician Primary Care Provider [phone] Tyler Trevizo MD Primary Care Provider [phone] Jarek Sol DPM Unavailable [phone] Encounter Details Date Type Department Care Team (Latest Contact Info) Description 09/25/2018 Orders Only [facility] ProviderLilly MD [address] [place] [address] Social History Tobacco Use Types Packs/Day Years Used Date Smoking Tobacco: Never Assessed Comments Unknown Sex and Gender Information Value Date Recorded Sex Assigned at Not on file Legal Sex Female 11:55 AM SYSTEMS PROGRAMMER Gender Identity Not on file Sexual Orientation Not on file documented as of this encounter Plan of Treatment Not on file documented as of this encounter Procedures Procedure Name Priority Date/Time Associated Diagnosis Comments PROCEDURE - RESULT 09/25/2018 12 :00 AM SYSTEMS PROGRAMMER documented in this encounter Results * PROCEDURE - RESULT (09/25/2018 12:00 AM SYSTEMS PROGRAMMER) Narrative 09/25/2018 12:00 AM SYSTEMS PROGRAMMER Ordered by an unspecified provider. us Historical Provider Final Res ult documented in this encounter Visit Diagnoses Not on filedocumented in this encounter Additional Health Concerns Infection Onset Date Last Indicated Resolved Time COVID: Suspected 07/25/2023 07/25/2023 07/25/2023 3:34 PM CDT COVID19 Comment:Airborne + Contact precautions. Gown, Gloves, N95, eye protection or goggles. Precautions 08/05/23. Contact Park Recreation Manager if patient worsens. LISA Denny 08/02/23 07/25/2023 07/25/2023 08/05/2023 3:06 AM C DT MRSA Comment:Contact Precautions (gown and gloves) LISA Denny 08/02/23 07/26/2023 07/26/2023 01/22/2024 3:05 AM C DT COVID: Recovered Comment:Added based on recent COVID infection. 08/05/2023 08/05/2023 11/03/2023 3:[address] documented as of this encounter Care Teams Charrer Relationship Specialty Start Date End Date Ailyn Physician PCP - General 12/01/18 01/10/19 Tyler Trevizo MD [address] [address] PCP - General Emergency Medicine 02/22/19 08/27/19 Tyler Trevizo MD [address] [address] PCP - General 01/11/19 02/21/19 Ailyn Physician PCP - General 01/02/20 02/07/20 Tyler Trevizo MD [address] [address] PCP - General Emergency Medicine 02/08/20 Christiano James MD [address] [facility] [address] [address] Director Graphics Cardiology 02/22/19 Jarek Sol DPM [address] [place] [address] Podiatry 02/14/23 documented as of this encounter
--- OUTSIDE RECORDS SUMMARY | 2025-04-19 16:28 | XMS_ITS | CONTINUITY OF CARE DOCUMENT ---
Author Name stevo stevo Address Unknown Organization [facility] Address [address] [facility] [address] [place] [address] Phone [phone] Care Team Providers Care Supervisor Drying And Winding Name Role Phone Cristóbal Quinones MD Unavailable [phone] Cristóbal Quinones MD Unavailable YARY MATTHEWS MD Unavailable [phone] PROBLEMS Condition Status Date Provider Notes Cardiology examination active Cristóbal Quinones MD DVT active Cristóbal Quinones MD VENOUS INSUFFICIENCY active Cristóbal Quinones MD HYPERTENSION active Cristóbal Quinones MD ENCOUNTERS Date Type Provider Location Encounter Diag nosis - In-person encounter Office Visit Cristóbal Quinones MD [facility] Cardiology examinationDVTVENOUS INSUFFICIENCYHYPERTENSION VITAL SIGNS Date [...] Payer name Policy type / Coverage type [place] red green party ID [employer] GOLD PLUS O HMO [id number] [facility] Medicaid 1 [id number] ADVANCE DIRECTIVES Name Date DISCUSSED - NO DECISION MADE TREATMENT PLAN Date Name Performer [id number],C,on compressio n Cristóbal Quinones MD [id number],C,w ill put her on eliquis 5 mg [...]
--- OUTSIDE RECORDS SUMMARY | 2025-04-19 16:28 | XMS_ITS | Encounter Summary ---
Author Organization [facility] Facility Care Team Providers Care Lead Nurse Name Role Phone No, Physician Primary Care Provider [phone] Tyler Trevizo MD Primary Care Provider [phone] Christiano James MD Unavailable [phone] Tyler Trevizo MD Primary Care Provider [phone] Ailyn, Physician Primary Care Provider [phone] Tyler Trevizo MD Primary Care Provider [phone] Jarek Sol DPM Unavailable Encounter Details Date Type Department Care Team (Latest Contact Info) Description 12/08/2018 Orders Only [facility] ProviderLilly MD [address] [place] [address] Social History Tobacco Use Types Packs/Day Years Used Date Smoking Tobacco: Never Assessed Comments Unknown Sex and Gender Information Value Date Recorded Sex Assigned at Not on file Legal Sex Female 11:55 AM HOISTER Gender Identity Not on file Sexual Orientation Not on file documented as of this encounter Plan of Treatment Not on file documented as of this encounter Procedures Procedure Name Priority Date/Time Associated Diagnosis Comments PROCEDURE - RESULT 12/08/2018 12 :00 AM HOISTER documented in this encounter Results * PROCEDURE - RESULT (12/08/2018 12:00 AM HOISTER) Narrative 12/08/2018 12:00 AM HOISTER Ordered by an unspecified provider. us Historical Provider Final Res ult documented in this encounter Visit Diagnoses Not on filedocumented in this encounter Additional Health Concerns Infection Onset Date Last Indicated Resolved Time COVID: Suspected 07/25/2023 07/25/2023 07/25/2023 3:34 PM CDT COVID19 Comment:Airborne + Contact precautions. Gown, Gloves, N95, eye protection or goggles. Precautions 08/05/23. Contact Spikemaking Supervisor if patient worsens. LISA Denny 08/02/23 07/25/2023 07/25/2023 08/05/2023 3:06 AM C DT MRSA Comment:Contact Precautions (gown and gloves) LISA Denny 08/02/23 07/26/2023 07/26/2023 01/22/2024 3:05 AM C DT COVID: Recovered Comment:Added based on recent COVID infection. 08/05/2023 08/05/2023 11/03/2023 3:[address] documented as of this encounter Care Teams Lead Nurse Relationship Specialty Start Date End Date Ailyn Physician PCP - General 12/01/18 01/10/19 Tyler Trevizo MD [address] [address] PCP - General Emergency Medicine 02/22/19 08/27/19 Tyler Trevizo MD [address] [address] PCP - General 01/11/19 02/21/19 Ailyn Physician PCP - General 01/02/20 02/07/20 Tyler Trevizo MD [address] [address] PCP - General Emergency Medicine 02/08/20 Christiano James MD [address] [facility] [address] [address] Field Crop I Farmworker Cardiology 02/22/19 Jarek Sol DPM [address] [place] [address] Podiatry 02/14/23 documented as of this encounter
--- NOTE | 2025-04-19 16:30 | PC.NURSE ---
Dr. Lopez notified of pt. rectal temp of 92.2.
--- NOTE | 2025-04-19 16:34 | ECG_ITS ---
Test Date: 2025-04-19 16:36:59 Measurements Intervals [place] Rate: 42 P: -25 ND: 183 QRS: 40 QRSD: 114 T: -2 QT: 647 QTc: 543 Interpretive Statements SINUS BRADYCARDIA WITH OCCASIONAL SUPRAVENTRICULAR PREMATURE COMPLEXES INTRAVENTRICULAR CONDUCTION DELAY ANTEROSEPTAL INFARCT, AGE INDETERMINATE BORDERLINE ST ABNORMALITY- INFERIOR LEADS BASELINE ARTIFACT- I, II, III, AVR, AVL, AVF, V1-V6 ABNORMAL ECG Compared to ECG 04/04/2025 12:31:54 HEART RATE HAS DECREASED Electronically Signed On 04-19-2025 16:45:26 CDT by Jesse Wong D.O.
[2025-04-19 17:33] LABS: Basophils Percent Auto 0.3 % (0.2-1.2); Eosinophils Absolute Auto 0.1 K/mm3 (0-0.3); Eosinophils Percent Auto 1.4 % (0-4.4); Hematocrit 33.6 % (37.0-47.0); Hemoglobin 10.2 g/dL (12.0-15.0); Immature Granulocyte Absolute 0.03 K/mm3 (0.00-0.031); Immature Granulocyte Percent A 0.4 % (0-0.5); Lymphocytes Absolute Auto 1.11 K/mm3 (0.9-3.2); Lymphocytes Percent Auto 14.3 % (18.3-44.2); Mean Corpuscular HGB Conc 30.4 g/dl (32-36); Mean Corpuscular Volume 85.7 fl (80-100); Mean Platelet Volume 9.4 fl (7.4-10.4); Monocytes Absolute Auto 0.4 K/mm3 (0.1-0.6); Monocytes Percent Auto 5.4 % (2.6-8.5); Neutrophils Absolute Auto 6.1 K/mm3 (1.3-6.7); Neutrophils Percent Auto 78.2 % (45.5-73.1); Nucleated Red Blood Cells Perc 0.5 % (0.0-0.2); Platelet Count Result 370 k/mm3 (150-375); Red Blood Count 3.92 M/mm3 (4.2-5.4); Red Cell Distribution Width 23.3 % (11.5-14.5); White Blood Count 7.8 K/mm3 (4.5-10.0)
--- NOTE | 2025-04-19 17:46 | ED_ITS ---
HPI - Fall General Chief Complaint: Fall Stated Complaint: FALL-LAC Time Seen by Provider: 04/19/25 16:10 History of Present Illness HPI Narrative: 69-year-old female presenting to the emergency department for evaluation for a ground level fall and on wound down time. Family states the patient fell from her wheelchair. Patient is A&O x1 with unknown baseline. Patient is a poor historian. Patient does have extensive swelling to her right lower extremity and has an [id number] amputation on her left lower extremity. Patient does have history of chronic kidney disease, hypertension, cellulitis. Patient had a recent discharge from the hospital for which she had been admitted for evaluation post mechanical ground fall. At that time patient states she had slid from her board getting out of her wheelchair. Patient does currently live at home with her son. 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 Patient's kidney function at last admission showed a creatinine of 4-5 and nephrology and Cardiology were consulted. At that time Nephrology try to convince the patient to do dialysis but patient continues to refuse dialysis. Patient had been on ceftriaxone all and appears to be discharged with linezolid. Unsure if patient is still taking his medication. Related Data Home Medications ?Medication ?Instructions ?Recorded ?Confirmed ?Last Taken ?Type ropinirole 4 mg tablet 4 mg PO HS PRN Restless Leg(S) 08/11/20 04/04/25 Unknown History Allergies Allergy/AdvReac Type Severity Reaction Status Date / Time No Known Allergies Allergy Verified 04/04/25 11:37 [facility] Past Medical History Medical History (Updated 04/19/25 @ 21:22 by Alexander Lopez MD) Chronic anemia Hypertension Depression with anxiety Arthritis Anxiety Asthma Lymphedema of right lower extremity Surgical History Surgical History History of tubal ligation History of bilateral carpal tunnel release History of bilateral cataract extraction History of left above knee amputation History of bilateral knee replacement Left 2013 Right 2014. Family History Family History Mother Cancer Father Cancer Social History Social History Social History: Surrogate medical decision maker: natalia Osborn. Code status: Full code. Smoking status: Never smoker Second hand tobacco smoke exposure: No Alcohol intake: never Substance use: never Substance use type: does not use Do You Feel Safe in your Home?: Yes Lack of Transportation: No Lack of Food: Never True Current Housing: I Have Housing Concerned About Future Housing: No Difficulty Paying Gas/Electric Bills: No Difficulty Paying for Meds: No Currently Unemployed: No Education: High School Diploma/GED Difficulty w/ Childcare or Family Care: No Additional living arrangements comments: . Lives with son in [place]. Spiritual care concerns: No Course Vital Signs Vital signs: Vital Signs Temperature 92.2 F L 04/19/25 16:09 Pulse Rate 44 L 04/19/25 16:09 Respiratory Rate 18 04/19/25 16:09 Blood Pressure 100/65 04/19/25 16:09 Pulse Oximetry 100 04/19/25 16:09 Oxygen Delivery Room Air 04/19/25 16:09 Temperature 94.2 F L 04/19/25 20:21 Pulse Rate 66 04/19/25 20:43 Respiratory Rate 23 H 04/19/25 20:43 Blood Pressure 92/47 L 04/19/25 20:43 Pulse Oximetry 100 04/19/25 20:43 Oxygen Delivery Room Air 04/19/25 16:09 MDM - Fall MDM Narrative Medical decision making narrative: 69-year-old female presents emergency department for evaluation for altered mental status. Concern for failure to thrive and collect. Patient was on count upon arrival. Patient is A&O x1 and her baseline is unknown. Patient is currently hypothermic with a white blood cell count of 7.8 hemoglobin of 10.2. Patient has significantly impaired kidney function compared to her baseline as of approximately 1 week ago. Patient's potassium is 5.4. Patient was treated with calcium, nebulized albuterol, Lokelma and IV fluids. Patient does have an elevated ESR and CRP, UA was negative for infection. Ultrasound was negative for DVT. Hip and pelvis x-ray were negative for acute fracture. Chest x-ray showed no acute pneumonia, CT head neck were negative for acute abnormality. Right lower extremity is concerning for cellulitis, blood cultures were ordered and patient was started on cefazolin. Attempted central line placement in the left IJ as this is the only site that was not obstructed by her contractions. Unable to successfully place the central line. This was discussed with hospitalist and she was comfortable with the plan for peripheral nor epi. Case was discussed with the industrial management teacher and antibiotics were switched to cefepime and vanc. Lab Data 04/19/25 17:24 04/19/25 17:24 Labs: Lab Results 04/19/25 04/19/25 Range/Units 17:24 17:25 WBC 7.8 (4.5-10.0) K/mm3 RBC 3.92 L (4.2-5.4) M/mm3 Hgb 10.2 L (12.0-15.0) g/dL Hct 33.6 L (37.0-47.0) % MCV 85.7 (80-100) fl MCH 26.0 (26-34) pg MCHC 30.4 L (32-36) g/dl RDW 23.3 H (11.5-14.5) % Plt Count 370 D (150-375) k/mm3 MPV 9.4 (7.4-10.4) fl Immature Gran % (Auto) 0.4 (0-0.5) % Neut % (Auto) 78.2 H (45.5-73.1) % Lymph % (Auto) 14.3 L (18.3-44.2) % [place] % (Auto) 5.4 (2.6-8.5) % Eos % (Auto) 1.4 (0-4.4) % Baso % (Auto) 0.3 (0.2-1.2) % Lymph # (Auto) 1.11 (0.9-3.2) K/mm3 [place] # (Auto) 0.4 (0.1-0.6) K/mm3 Eos # (Auto) 0.1 (0-0.3) K/mm3 Baso # (Auto) 0.0 (0.0-0.1) K/mm3 Abs Immat Gran (auto) 0.03 (0.00-0.031) K/mm3 Absolute Neuts (auto) 6.1 (1.3-6.7) K/mm3 Absolute Nucleated RBC 0.040 H (0.0-0.012) K/mm3 Band Neutrophils % Not Reportable Nucleated RBC % 0.5 H (0.0-0.2) % Platelet Estimate Slightly increased (Adequate) Poikilocytosis 1+ Anisocytosis 2+ Schistocytes None seen ESR 103 H (0-20) mm/hr PT 16.2 H (11.1-14.7) Seconds INR 1.3 APTT 38.7 H (22.3-36.8) Seconds Sodium 144 (137-145) mmol/L Potassium 5.4 H (3.4-5.0) mmol/L Chloride 115 H (98-107) mmol/L Carbon Dioxide 8 L (22-30) mmol/L Anion Gap 21 H (4-12) mmol/L BUN 77 H D (7-17) mg/dL Creatinine 9.75 H (0.7-1.0) mg/dL Estim Creat Clear Calc Not Reportable Estimated GFR 4 L (59 - ) Glucose 87 (65-110) mg/dL Calcium 8.7 (8.4-10.2) mg/dL Magnesium 2.3 (1.6-2.3) mg/dL Total Bilirubin 0.7 (0.2-1.3) mg/dL AST 40 H (14-36) U/L ALT 20 (6-35) U/L Alkaline Phosphatase 176 H (38-126) U/L Total Creatine Kinase 268 H (30-135) U/L C-Reactive Protein 14.8 H (<1.0) mg/dL Total Protein 7.3 (6.3-8.2) g/dL Albumin 3.2 L (3.5-5.1) g/dL Procalcitonin 1.5 ng/mL TSH (Reflex) 3.550 (0.465-4.68) uIU/mL Urine Color Yellow (Yellow) Urine Appearance Cloudy H (Clear) Urine pH 5.0 (5.0-9.0) Ur Specific [place] 1.017 (1.001-1.035) Urine Protein 3+ H (Negative) mg/dL Urine Glucose (UA) Trace H (Negative) mg/dL Urine Ketones Negative (Negative) mg/dL Ur Blood (Man) 3+ H (Negative) Urine Nitrate Negative (Negative) Urine Bilirubin Negative (Negative) Urine Urobilinogen 0.2 (<2.0) mg/dL Add Ur Microanalysis Reviewed Leukocyte Esterase Rfl Trace H (Negative) GOYO/UL Urine RBC 6-10 H (0-2) /hpf Urine WBC 0-5 (0-3) /hpf Ur Squamous Epith Cells None seen (Few) /hpf Ur Transition Epith Cell Few H (None Seen) /hpf Urine Bacteria None seen /hpf Urine Casts 0-2 Discharge Plan Discharge Clinical Impression: Adult failure to thrive, Cellulitis of lower leg, AMS (altered mental status) Sepsis Qualifiers: Sepsis type: sepsis due to unspecified organism Sepsis acute organ dysfunction status: unspecified Qualified Code(s): A41.9 - Sepsis, unspecified organism Patient Disposition: Still a Patient Condition: Critical
[2025-04-19 17:48] LABS: Anisocytosis 2+; INR 1.3; Partial Thromboplastin Time 38.7 Seconds (22.3-36.8); Platelet Estimate Slightly Increased (Adequate); Prothrombin Time 16.2 Seconds (11.1-14.7)
[2025-04-19 17:49] LABS: Poikilocytosis 1+; Schistocytes None Seen
[2025-04-19 17:50] LABS: Alanine Aminotransferase 20 U/L (6-35); Albumin Level 3.2 g/dL (3.5-5.1); Alkaline Phosphatase 176 U/L (38-126); Anion Gap 21 mmol/L (4-12); Aspartate Amino Transferase 40 U/L (14-36); Bilirubin,Total 0.7 mg/dL (0.2-1.3); Blood Urea Nitrogen 77 mg/dL (7-17); Calcium 8.7 mg/dL (8.4-10.2); Carbon Dioxide 8 mmol/L (22-30); Chloride 115 mmol/L (98-107); Creatine Kinase 268 U/L (30-135); Estimated Glomerular Filt Rate 4; Glucose 87 mg/dL (65-110); Magnesium 2.3 mg/dL (1.6-2.3); Potassium 5.4 mmol/L (3.4-5.0); Sodium 144 mmol/L (137-145); Total Protein 7.3 g/dL (6.3-8.2)
[2025-04-19 17:53] LABS: Add Urine Microscopic? YES; Appearance Urine Cloudy (Clear); Bacteria Urine None Seen /hpf; Bilirubin Urine Negative (Negative); Blood Urine 3+ (Negative); Color Urine Yellow (Yellow); Glucose Urine UA Trace mg/dL (Negative); Ketones Urine Negative (Negative); Leukocyte Esterase Ur Trace LEU/UL (Negative); Need Manual Microscopic Reviewed; Nitrate Urine Negative (Negative); Non Pathogenic Casts 0-2; Protein Urine 3+ mg/dL (Negative); Specific Grav Ur 1.017 (1.001-1.035); Squamous Epithelial Cell Urine None Seen /hpf (Few); Urobilinogen Urine 0.2 mg/dL (<2.0); WBC Urine 0-5 /hpf (0-3)
[2025-04-19 17:58] LABS: Erythrocyte Sedimentation Rate 103 mm/hr (0-20)
[2025-04-19 18:00] LABS: Transitional Epi Cells Urine Few /hpf (None Seen)
[2025-04-19 18:00] LABS: CRP 14.8 mg/dL (<1.0)
[2025-04-19 18:03] LABS: Procalcitonin 1.5 ng/mL
[2025-04-19] MEDS: ALBUTEROL SULFATE NEB 2.5 MG/3 ML INH 5 MG INHALATION (18:13)
[2025-04-19] MEDS: LACTATED RINGERS 1,000 ML 999 ML IV CONT (18:16)
[2025-04-19] MEDS: SODIUM CHLORIDE 0.9% IV 1,000 ML 999 ML IV CONT ×2 (18:50→19:25)
--- NOTE | 2025-04-19 19:05 | PC.NURSE ---
All scheduled medications administered in appropriate time, unable to scan dues to IT error, massage that another nurse in pt chart. Calcium Gluconate 1000mg/50 ml, Dextrose 25g, insulin 5units, Lokelma po given and Verified by Cat RN.
[2025-04-19] MEDS: DEXTROSE 50% 25 GM/50 ML SYRINGE IV PUSH (19:14)
[2025-04-19] MEDS: SODIUM ZIRCONIUM CYCLOSILICATE 10 GM POWD.PACK PO (19:14)
[2025-04-19] MEDS: ceFAZolin 1 GM/NS 50 ML 1 GM/50 ML BAG IVPB (19:14)
[2025-04-19] MEDS: INSULIN HUMAN REGULAR (*BKC) 100 UNITS/ML IV PUSH (19:14)
[2025-04-19] MEDS: CALCIUM GLUC 1,000 MG/NS 50 ML 1,000 MG/50 ML BAG 100 MG IVPB (19:14)
[2025-04-19 19:58] LABS: Glucose Point of Care 120 mg/dl (65-105)
--- NOTE | 2025-04-19 20:06 | PC.NURSE ---
per edp dr. pollard patient to not go to imu with current blood pressure readings. this rn spoke with LISA Multani and Joe Hubbard about patient update.
[2025-04-19] MEDS: CEFEPIME 2 GM/NS 50 ML 2 GM/50 ML BAG IVPB (21:30)
[2025-04-19] MEDS: PHENYLEPHRINE HCL INJ 50 MG in SODIUM CHLORIDE 0.9% IV 245 ML 12 ML IV CONT (21:30)
--- NOTE | 2025-04-19 22:06 | ADMGEN ---
This patient, Daria Pickett, was admitted to ICU-7 at 2138. Patient/family oriented to hospital policies and general routines including ID bracelet, bed and alarms, visiting hours, pain management, procedures, bathroom and other care routines, personal items, smoking policy, room service/diet, and visiting hours. Information on how to activate the Rapid Response Team has been discussed. Patient/Family are encouraged to report perceived risks to care and to ask questions if they do not understand what they are told or what they should do.
--- NOTE | 2025-04-19 22:49 | P.HP_ITS ---
H&P: HPI History of Present Illness Date/Time: 04/19/25 20:30 Chief Complaint: Fall from wheelchair Narrative: 69-year-old female with a past medical history of chronic anemia, lymphedema of the right lower extremity, prior left [id number] amputation, essential hypertension, depression and anxiety and chronic kidney disease stage 5, and recent hospitalization with severe anemia, MSSA bacteremia and ulcer with cellulitis of the right knee who presented to the ER via EMS after having a fall out of her wheelchair. Source of information is from the ER records and past medical records patient is only alert oriented to her name at the time of my evaluation. Per ER records the patient's son called EMS after patient fell out of her wheelchair. She was reportedly not on the floor for very long. She was alert orient x2 per EMS. The patient had numerous scabs on her lower extremity which were covered in animal hair. Patient reportedly was found to have roaches on her at the home. Patient is diabetic and does not check her blood sugars at home. In the ER the patient was found to be profoundly hypothermic with an initial temperature of 92.2?. Her initial blood pressures were normal but quickly downtrended to the 80s and 90s systolic. She received 2 L of normal saline and 1.5 L of LR in remained hypotensive. Her blood pressures shortly after arrival to the ICU where his low as 69/45 after Gerson-Synephrine had already been started. I evaluated the patient down in the ER at which time the ER physician was trying to place a central line. Due to the patient's contractures and anatomy the only viable option for central line placement was the left IJ and after numerous attempts efforts were ceased. The patient was started on Gerson-Synephrine peripherally. White count was normal and hemoglobin was slightly increased from prior value of 9. Patient had mild hyperkalemia and acutely worsening creatinine from baseline of 4.5 up to 9. Serum bicarb was low at 8. Patient was initially started on Ancef for cellulitis but was switched to broad- spectrum antibiotic coverage with cefepime and vancomycin. Patient did have mildly elevated CK level in the ER. Patient had been admitted to the hospital 04/04/2025 through 04/12/2025 and was noted to have profound anemia with hemoglobin of 3.4. She received 3 units of packed red blood cells with improvement in her hemoglobin at that time her stool occult blood was negative. She was also found to have MSSA bacteremia with echocardiogram negative for evidence of vegetation with repeat blood cultures that were negative. Patient was initially treated with Rocephin and vancomycin but was switched to linezolid at discharge. It is unclear if the patient has been compliant with linezolid after discharge. She was supposed to stay on linezolid until 04/24/2025. Patient was evaluated by Nephrology during prior visit and was found to have chronic kidney disease with prior baseline less than 1 in 2022 with value on discharge of 4. She was noted to have an DOT positive indeterminate double-stranded DNA antibody, and ANCA negative, SPEP with poorly defined band possible M spike but normal urine protein electrophoresis. She had nephrotic range proteinuria and normal kappa lambda ratio. Her and complements were negative. Patient had previously refused hemodialysis. Review of Systems 2 Review of Systems: ROS unobtainable: Yes unobtainable due to mental status PMFSH Past Medical History Medical History (Updated 04/20/25 @ 01:39 by Mary Ann Laurent DO) Chronic kidney disease, stage 5 Chronic anemia Hypertension Depression with anxiety Arthritis Anxiety Asthma Lymphedema of right lower extremity Surgical History Surgical History History of tubal ligation History of bilateral carpal tunnel release History of bilateral cataract extraction History of left above knee amputation History of bilateral knee replacement Left 2013 Right 2015. Family History Family History Mother Cancer Father Cancer Social History Social History Social History: Surrogate medical decision maker: Trey Pickett, [place]. Code status: Full code. Smoking status: Never smoker Second hand tobacco smoke exposure: No Alcohol intake: never Substance use: never Substance use type: does not use Do You Feel Safe in your Home?: Yes Lack of Transportation: No Lack of Food: Never True Current Housing: I Have Housing Concerned About Future Housing: No Difficulty Paying Gas/Electric Bills: No Difficulty Paying for Meds: No Currently Unemployed: No Education: High School Diploma/GED Difficulty w/ Childcare or Family Care: No Additional living arrangements comments: . Lives with son in [place]. Spiritual care concerns: No Meds Home Medications and Allergies Home Medications ?Medication ?Instructions ?Recorded ?Confirmed ?Type acetaminophen 325 mg tablet (Mapap 650 mg (2 x 325 mg) PO Q4H PRN 07/02/23 04/19/25 Rx (acetaminophen)) Mild Pain (1-3) Or Fever #0 tabs silver 200 mcg/gram topical gel 1 applic topical DAILY 30 days #0 07/02/23 04/19/25 Rx (Silver-Sept) grams linezolid 600 mg tablet 600 mg PO Q12H 11 days #22 tabs 04/12/25 04/19/25 Rx losartan 50 mg tablet 50 mg PO DAILY #90 tabs 04/12/25 04/19/25 Rx sodium bicarbonate 650 mg tablet 1,300 mg (2 x 650 mg) PO BID 30 04/12/25 04/19/25 Rx days #120 tabs Allergies Allergy/AdvReac Type Severity Reaction Status Date / Time No Known Allergies Allergy Verified 04/04/25 11:37 Vital Signs Vital Signs - 24 hr 04/19/25 16:09 04/19/25 18:16 04/19/25 18:23 Temperature 92.2 F L Pulse Rate 44 L 56 L 52 L Respiratory Rate 18 18 20 Blood Pressure 100/65 113/39 L Pulse Oximetry 100 100 Oxygen Delivery Room Air 04/19/25 18:26 04/19/25 19:19 04/19/25 19:21 Temperature 93.2 F L 93.2 F L Pulse Rate 42 L 74 Respiratory Rate 20 15 Blood Pressure 83/34 L Pulse Oximetry 100 Oxygen Delivery 04/19/25 19:27 04/19/25 19:28 04/19/25 19:31 Temperature 93.1 F L 93.2 F L 93.1 F L Pulse Rate 71 74 61 Respiratory Rate 22 H 22 H 25 H Blood Pressure 91/45 L 91/45 L 91/38 L Pulse Oximetry 100 99 100 Oxygen Delivery 04/19/25 19:45 04/19/25 19:49 04/19/25 20:03 Temperature 93.1 F L 93.1 F L Pulse Rate 61 52 L Respiratory Rate 19 16 Blood Pressure 94/43 L Pulse Oximetry 100 Oxygen Delivery 04/19/25 20:06 04/19/25 20:12 04/19/25 20:21 Temperature 94.2 F L 94.2 F L Pulse Rate 65 Respiratory Rate 16 Blood Pressure 89/34 L Pulse Oximetry 100 Oxygen Delivery 04/19/25 20:43 04/19/25 21:29 04/19/25 21:30 Temperature 95.6 F L Pulse Rate 66 87 66 Respiratory Rate 23 H 25 H Blood Pressure 92/47 L 82/33 L 94/37 L Pulse Oximetry 100 99 Oxygen Delivery Room Air 04/19/25 21:45 04/19/25 21:45 Temperature 96.1 F L Pulse Rate 59 L 57 L Respiratory Rate 20 Blood Pressure 69/45 L 69/45 L Pulse Oximetry 99 Oxygen Delivery Exam 2 Narrative: Weight 45 kg BMI 16.5 Const: Other: Disheveled, frail, cachectic, elderly, lying on the right side in the semi- Spence position HENMT: Other: Mucous membranes are dry, dry skin around the mouth, head is normocephalic atraumatic Eyes: Other: Left pupil is briskly reactive, clear lens noted, positive conjunctival pallor, right pupil is pinpoint and film noted across the pupil, erythema surrounding the iris, no scleral icterus Neck: Other: No lymphadenopathy, cervical kyphosis Resp: Other: Coarse breath sounds bilaterally, shallow respirations Cardio: Other: Regular rate, regular rhythm, 2+ bilateral radial pulses, no murmur, no JVD GI: Other: Soft, nontender, nondistended, hypoactive bowel sounds : Other: Velez catheter in place with small amount of dark yellow urine difficult to evaluate groin folds due to patient positioning and contractures Back/Spine/Pelvis: Other: Marked thoracic kyphosis Skin: Other: Patient has multiple scabs and wounds to the right lower extremity, ulcer to the lateral right knee, skin shiny and tight over the right lower extremity, bruising multiple stages of bilateral upper extremities including upper arms Neuro: Other: Patient is awake, difficult to redirect, moving bilateral upper extremities equally, is not following commands, opens her eyes to her name being called but is otherwise having mumbling speech Extrem: Other: Flexion contractures of bilateral hips with flexion contractures of the right hamstring with decreased mobility, marked pitting edema of the right lower extremity with multiple skin wounds as noted above, left above the knee amputation with stump site in good condition Psych: Other: Confused, difficult to redirect, poor judgment and insight H&P: Results Labs Labs: Laboratory Tests 04/19/25 17:24 04/19/25 17:24 04/19/25 04/19/25 04/19/25 17:24 17:25 19:52 WBC 7.8 RBC 3.92 L Hgb 10.2 L Hct 33.6 L MCV 85.7 MCH 26.0 MCHC 30.4 L RDW 23.3 H Plt Count 370 D MPV 9.4 Immature Gran % (Auto) 0.4 Neut % (Auto) 78.2 H Lymph % (Auto) 14.3 L S[place]y % (Auto) 5.4 Eos % (Auto) 1.4 Baso % (Auto) 0.3 Lymph # (Auto) 1.11 Sibley # (Auto) 0.4 Eos # (Auto) 0.1 Baso # (Auto) 0.0 Abs Immat Gran (auto) 0.03 Absolute Neuts (auto) 6.1 Absolute Nucleated RBC 0.040 H Band Neutrophils % Not Reportable Nucleated RBC % 0.5 H Platelet Estimate Slightly increased Poikilocytosis 1+ Anisocytosis 2+ Schistocytes None seen ESR 103 H PT 16.2 H INR 1.3 APTT 38.7 H Sodium 144 Potassium 5.4 H Chloride 115 H Carbon Dioxide 8 L Anion Gap 21 H BUN 77 H D Creatinine 9.75 H Estim Creat Clear Calc Not Reportable Estimated GFR 4 L Glucose 87 POC Capillary Glucose 120 H Calcium 8.7 Magnesium 2.3 Total Bilirubin 0.7 AST 40 H ALT 20 Alkaline Phosphatase 176 H Total Creatine Kinase 268 H C-Reactive Protein 14.8 H Total Protein 7.3 Albumin 3.2 L Procalcitonin 1.5 TSH (Reflex) 3.550 Urine Color Yellow Urine Appearance Cloudy H Urine pH 5.0 Ur Specific [place] 1.017 Urine Protein 3+ H Urine Glucose (UA) Trace H Urine Ketones Negative Ur Blood (Man) 3+ H Urine Nitrate Negative Urine Bilirubin Negative Urine Urobilinogen 0.2 Add Ur Microanalysis Reviewed Leukocyte Esterase Rfl Trace H Urine RBC 6-10 H Urine WBC 0-5 Ur Squamous Epith Cells None seen Ur Transition Epith Cell Few H Urine Bacteria None seen Urine Casts 0-[address] 04/19/25 17:49 IMPRESSION: No acute intracranial process. Cervical Spine CT 04/19/25 17:52 IMPRESSION: No acute fracture or traumatic malalignment in the cervical spine. Chest X-Ray 04/19/25 18:03 IMPRESSION: No acute cardiopulmonary process. Hip/Pelvis X-Ray 04/19/25 18:05 IMPRESSION: No definite fracture or hardware related complication, however examination is severely limited by difficulty with positioning. If there is persistent pain or clinical suspicion of injury is high, consider CT of the pelvis for further evaluation. Venous Doppler Study 04/19/25 18:09 IMPRESSION: Right popliteal vein not adequately visualized. Otherwise patent right lower extremity veins. No evidence of deep venous thrombosis. EKG:Test Date: 2025-04-19 16:36:59 Measurements Intervals [place] Rate: 42 P: -25 PA: 183 QRS: 40 QRSD: 114 T: -2 QT: 647 QTc: 543 Interpretive Statements SINUS BRADYCARDIA WITH OCCASIONAL SUPRAVENTRICULAR PREMATURE COMPLEXES INTRAVENTRICULAR CONDUCTION DELAY ANTEROSEPTAL INFARCT, AGE INDETERMINATE BORDERLINE ST ABNORMALITY- INFERIOR LEADS BASELINE ARTIFACT- I, II, III, AVR, AVL, AVF, V1-V6 ABNORMAL ECG Compared to ECG 04/04/2025 12:31:54 HEART RATE HAS DECREASED All imaging and EKGs personally reviewed and interpreted. And unless stated otherwise agree with radiologic and cardiology interpretation. Assessment and Plan Assessment and plan (1) Septic shock: Code(s): A41.9 - Sepsis, unspecified organism; R65.21 - Severe sepsis with septic shock Status: Acute (2) Acute renal failure superimposed on stage 5 chronic kidney disease, not on chronic dialysis: Qualifiers: Acute renal failure type: with acute tubular necrosis Qualified Code(s): N17.0 - Acute kidney failure with tubular necrosis; N18.5 - Chronic kidney disease, stage 5 Code(s): N17.9 - Acute kidney failure, unspecified; N18.5 - Chronic kidney disease, stage 5 Status: Acute (3) Acute hyperkalemia: Code(s): E87.5 - Hyperkalemia Status: Acute (4) MSSA bacteremia: Code(s): R78.81 - Bacteremia; B95.61 - Methicillin susceptible Staphylococcus aureus infection as the cause of diseases classified elsewhere Status: Acute (5) Hypothermia due to non-environmental cause: Code(s): R68.0 - Hypothermia, not associated with low environmental temperature Status: Acute (6) Cellulitis of lower leg: Code(s): L03.119 - Cellulitis of unspecified part of limb Status: Acute (7) Metabolic acidosis: Code(s): E87.20 - Acidosis, unspecified Status: Acute (8) Severe protein-calorie malnutrition: Code(s): E43 - Unspecified severe protein-calorie malnutrition Status: Acute Plan Patient presents with shock due to sepsis. Sepsis criteria met with profound hypothermia, tachypnea, hypotension despite adequate fluid resuscitation and acute on chronic kidney injury with metabolic encephalopathy. Source of sepsis could be due to cellulitis verses recurrent MSSA bacteremia. Is unclear if the patient was continuing with her antibiotic therapy with linezolid at home or not. Blood cultures were obtained in the ER. The patient received total of 3.5 L in fluid bolus which was much greater than 30 mL/kilos volume fluid resuscitation in remained hypotensive. Patient was subsequently started on peripheral pressor therapy with Gerson-Synephrine as we were unable to place a central line. Blood cultures were obtained and are pending. Will continue IV fluid hydration and will wean pressors as tolerated. Will continue pressors for goal maps of 65-70. Will repeat CBC with differential in a.m.. Will continue cefepime and vancomycin. Human Resource Internship has been consulted. Patient does have acute kidney injury on chronic kidney disease with associated hyperkalemia. The patient received insulin, dextrose, calcium gluconate, Lokelma and a nebulizer treatment in the ER. Patient's serum bicarb is acutely decompensated from baseline. Venous blood gas was obtained after my evaluation which demonstrated severe metabolic acidosis with compensatory respiratory alkalosis. You acute metabolic acidosis is new patient had prior chronic metabolic acidosis that was compensated during last hospitalization. Patient's was given a amp of sodium bicarb and started on bicarb drip. Will repeat electrolyte panel including phosphorus and magnesium in a.m.. Will consult Nephrology. Patient has severe protein calorie malnutrition and is cachectic. She benefit from nutritional supplementation when clinically stable. Patient arrived to the ER disheveled with multiple wounds in bruises. Poor living conditions reported by EMS. Care coordination consult has been placed. We need to have a goals of care discussion with patient's family. The patient had previously refused dialysis and is noncompliant with home medications including Accu-Cheks. If the patient's creatinine does not improve and she still does not want hemodialysis there is not much else that we can do. Patient's condition is critical and prognosis is poor. 60 minute spent in critical care activities. Due to a high probability of clinically significant, life threatening deterioration, the patient required my highest level of preparedness to intervene emergently and I personally spent this critical care time directly and personally managing the patient. This critical care time included obtaining a history; examining the patient; pulse oximetry; ordering and review of studies; arranging urgent treatment with development of a management plan; evaluation of patient's response to treatment; frequent reassessment; and discussions with other providers. It was exclusive of separately billable procedures and treating other patients and teaching time. Please see Assessment and Plan section and the rest of the note for further information on patient assessment and treatment. Quality VTE Prophylaxis VTE prophylaxis: pharmacologic ordered (Heparin 5000 units subQ q.12 hours) Hospitalist [facility] Advance Care Plan I have confirmed that the patient's Advanced Care Plan is present, code status is documented, or surrogate decision maker is listed in patient medical record.: Yes Medication Reconciliation I have utilized all available resources to obtain, update and review the patients current medications (includes all prescriptions, OTC, herbals, cannabis, and nutritional supplements).: Yes
[2025-04-19 23:29] LABS: Fractional Inspired Oxygen 21 %; HCO3 VBG 11.3 mEq/l (24.0-30.0); PO2 VBG 50.5 mmHg (35.0-45.0); pH VBG 7.283 (7.300-7.400)
[2025-04-19 23:30] LABS: Device ROOM AIR; PCO2 VBG 24.4 mmHg (42.0-48.0)
[2025-04-19] MEDS: VANCOMYCIN 750 MG/NS 250 ML 750 MG/250 ML BAG 250 MG IVPB (23:51)
[2025-04-20] VITALS (31 sets, daily range): BP systolic 66–154; BP diastolic 38–83; PULSE 59–79; RESP 13–26; TEMP 35.8–36.8; O2SAT 89–100
[2025-04-20] MEDS: SODIUM BICARBONATE 8.4% 50 MEQ/50 ML SYRINGE IV PUSH ×2 (00:11→09:56)
[2025-04-20] MEDS: SODIUM BICARBONATE 8.4% 150 MEQ in DEXTROSE 5% 1,000 ML 950 ML IV CONT (00:32)
[2025-04-20 00:40] LABS: MRSA (PCR) NOT DETECTED (NOT DETECTE)
[2025-04-20 04:02] LABS: Basophils Percent Auto 0.3 % (0.2-1.2); Eosinophils Absolute Auto 0.3 K/mm3 (0-0.3); Eosinophils Percent Auto 2.6 % (0-4.4); Hematocrit 26.4 % (37.0-47.0); Hemoglobin 8.2 g/dL (12.0-15.0); Immature Granulocyte Absolute 0.05 K/mm3 (0.00-0.031); Immature Granulocyte Percent A 0.5 % (0-0.5); Lymphocytes Absolute Auto 1.44 K/mm3 (0.9-3.2); Lymphocytes Percent Auto 13.2 % (18.3-44.2); Mean Corpuscular HGB Conc 31.1 g/dl (32-36); Mean Corpuscular Hemoglobin 25.9 pg (26-34); Mean Corpuscular Volume 83.5 fl (80-100); Mean Platelet Volume 9.3 fl (7.4-10.4); Monocytes Absolute Auto 0.7 K/mm3 (0.1-0.6); Neutrophils Absolute Auto 8.4 K/mm3 (1.3-6.7); Neutrophils Percent Auto 77.4 % (45.5-73.1); Nucleated Red Blood Cells Perc 0.3 % (0.0-0.2); Platelet Count Result 365 k/mm3 (150-375); Red Blood Count 3.16 M/mm3 (4.2-5.4); Red Cell Distribution Width 23.4 % (11.5-14.5); White Blood Count 10.9 K/mm3 (4.5-10.0)
[2025-04-20 04:23] LABS: Estimated CRCL calculation 4 ml/min; Estimated Glomerular Filt Rate 5
[2025-04-20 04:27] LABS: INR 1.4; Partial Thromboplastin Time 40.5 Seconds (22.3-36.8); Prothrombin Time 17.2 Seconds (11.1-14.7)
[2025-04-20 04:30] LABS: Anisocytosis 2+; Platelet Estimate Adequate (Adequate)
[2025-04-20 04:31] LABS: Crenated RBC 1+; Schistocytes Rare
[2025-04-20 04:34] LABS: Albumin Level 2.3 g/dL (3.5-5.1); Anion Gap 14 mmol/L (4-12); Blood Urea Nitrogen 69 mg/dL (7-17); Calcium 7.3 mg/dL (8.4-10.2); Carbon Dioxide 11 mmol/L (22-30); Chloride 118 mmol/L (98-107); Creatine Kinase 308 U/L (30-135); Estimated CRCL calculation 4 ml/min; Estimated Glomerular Filt Rate 5; Glucose 96 mg/dL (65-110); Magnesium 1.7 mg/dL (1.6-2.3); Phosphorus 6.4 mg/dL (2.5-4.5); Potassium 3.8 mmol/L (3.4-5.0); Sodium 143 mmol/L (137-145)
[2025-04-20] MEDS: PHENYLEPHRINE HCL INJ 50 MG in SODIUM CHLORIDE 0.9% IV 245 ML 42 ML IV CONT (07:45)
[2025-04-20] MEDS: ALBUMIN HUMAN 5% 25 GM/500 ML BTL IV CONT (08:08)
--- NOTE | 2025-04-20 09:29 | WPDCNINT ---
Assessment and Plan Assessment and plan (1) Septic shock: Code(s): A41.9 - Sepsis, unspecified organism; R65.21 - Severe sepsis with septic shock Status: Acute Assessment and Plan: Sepsis secondary to UTI and right lower extremity cellulitis. Patient was recently diagnosed with MSSA bacteremia and was discharged on p.o. antibiotics. Unsure of the compliance. Repeat blood cultures have been sent and are pending Check urine culture. Procalcitonin 1.5 Patient is currently on cefepime and vancomycin. In light of renal failure I will change vancomycin to linezolid Patient has had more than 4 L of fluid I will hold further IV fluids and continue Gerson-Synephrine infusion Add 25% albumin Despite several attempts to physicians were unable to place central venous catheter. 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 Will try to obtain a PICC line for better IV access to administer antibiotics and vasopressor (2) Acute renal failure superimposed on stage 5 chronic kidney disease, not on chronic dialysis: Qualifiers: Acute renal failure type: with acute tubular necrosis Qualified Code(s): N17.0 - Acute kidney failure with tubular necrosis; N18.5 - Chronic kidney disease, stage 5 Code(s): N17.9 - Acute kidney failure, unspecified; N18.5 - Chronic kidney disease, stage 5 Status: Acute Assessment and Plan: Acute on chronic renal failure Patient was discharged with creatinine of 4 and now presented with creatinine 9.75. Recent workup has shown patient has severe medical renal disease Patient has received L of IV fluid I will hold further fluids to minimize risk of volume overload It appears patient has refused dialysis in the past but at this time should her mental status does not allow any decision making She is receiving bicarb for metabolic acidosis and potassium level is in acceptable range at this time I will discuss with Nephrology which has been consult I will also discuss with patient's son (3) Metabolic acidosis: Code(s): E87.20 - Acidosis, unspecified Status: Acute Assessment and Plan: Patient received IV fluids with sodium bicarbonate overnight. I will hold further IV fluids to prevent volume overload Continue IV and p.o. bicarb (4) UTI (urinary tract infection): Code(s): N39.0 - Urinary tract infection, site not specified Status: Acute Assessment and Plan: See above (5) Cellulitis of right leg: Code(s): L03.115 - Cellulitis of right lower limb Status: Acute Assessment and Plan: See above (6) MSSA bacteremia: Code(s): R78.81 - Bacteremia; B95.61 - Methicillin susceptible Staphylococcus aureus infection as the cause of diseases classified elsewhere Status: Acute Assessment and Plan: See above (7) Ulcer of right leg: Qualifiers: Non-pressure ulcer stage: unspecified non-pressure ulcer stage Qualified Code(s): L97.919 - Non-pressure chronic ulcer of unspecified part of right lower leg with unspecified severity Code(s): L97.919 - Non-pressure chronic ulcer of unspecified part of right lower leg with unspecified severity Status: Chronic Assessment and Plan: Wound Care consult (8) Severe protein-calorie malnutrition: Code(s): E43 - Unspecified severe protein-calorie malnutrition Status: Acute Assessment and Plan: Consult dietitian for evaluation Nutritional supplement supplements Plan DVT prophylaxis -heparin Stress ulcer prophylaxis -subcu heparin Code Status - Full Code I have called patient's son at the number listed in the chart and left a message on the voicemail. Total Critical Care Time - 40 minutes Due to a high probability of clinically significant, life threatening deterioration, the patient required my highest level of preparedness to intervene emergently and I personally spent this critical care time directly and personally managing the patient. This critical care time included obtaining a history; examining the patient; pulse oximetry; ordering and review of studies; arranging urgent treatment with development of a management plan; evaluation of patient's response to treatment; frequent reassessment; and discussions with other providers. It was exclusive of separately billable procedures and treating other patients and teaching time. Please see Assessment and Plan section and the rest of the note for further information on patient assessment and treatment Hand Mica Plate Layer Consult Note Consult date: 04/20/25 Reason for consult: Sepsis HPI: Daria Pickett is a 69 year old female with a past medical history of chronic anemia, diabetes mellitus, lymphedema of the right lower extremity, contractures of both lower extremities, prior left [id number] amputation, essential hypertension, depression and anxiety and chronic kidney disease stage 5, and recent hospitalization with severe anemia, MSSA bacteremia and ulcer with cellulitis of the right knee, scoliosis, malnutrition who presented to the ER via EMS after having a fall out of her wheelchair. History was limited. Patient was found to be having numerous scabs on her right lower extremity which were covered in animal hair and but. Patient reportedly was found to have roaches on her at the home. Patient has history of diabetes but does not check her blood sugars at home. Evaluation In the ER showed patient to be profoundly hypothermic with an initial temperature of 92.2?. Her initial blood pressures were normal but quickly downtrended to the 80s and 90s systolic. She received 2 L of normal saline and 1.5 L of LR in remained hypotensive. She was started on Gerson-Synephrine infusion. Several attempts were made to place a central venous catheter which were unsuccessful. Patient was also started on antibiotics On my chart review it appears that patient was admitted to the hospital 04/04/2025 through 04/12/2025 and was noted to have profound anemia with hemoglobin of 3.4. She received 3 units of packed red blood cells with improvement in her hemoglobin at that time her stool occult blood was negative. She was also found to have MSSA bacteremia with echocardiogram negative for evidence of vegetation with repeat blood cultures that were negative. Patient was initially treated with Rocephin and vancomycin but was switched to linezolid at discharge. It is unclear if the patient has been compliant with linezolid after discharge. She was supposed to stay on linezolid until 04/24/2025. Patient was evaluated by Nephrology during prior visit and was found to have chronic kidney disease with prior baseline less than 1 in 2022 with value on discharge of 4. She was noted to have an DOT positive indeterminate double-stranded DNA antibody, and ANCA negative, SPEP with poorly defined band possible M spike but normal urine protein electrophoresis. She had nephrotic range proteinuria and normal kappa lambda ratio. Her and complements were negative. She was discharged with p.o. bicarb. Per notes, Patient had previously refused hemodialysis. At this time patient is on IV fluids with bicarb and also Gerson-Synephrine infusion. Patient is unable to provide any meaningful history. She did answer some question I do not know how reliable her answers are as she answered yes to most of the things. She did not answer any orientation questions but she did follow commands with her hands and by opening her mouth for the exam Review of Systems Review of Systems: ROS unobtainable: Yes unobtainable due to medical condition and unobtainable due to mental status [facility] Past Medical History Medical History Chronic kidney disease, stage 5 Chronic anemia Hypertension Depression with anxiety Arthritis Anxiety Asthma Lymphedema of right lower extremity Surgical History Surgical History History of tubal ligation History of bilateral carpal tunnel release History of bilateral cataract extraction History of left above knee amputation History of bilateral knee replacement Left 2014 Right 2014. Family History Family History Mother Cancer Father Cancer Social History Social History Social History: Surrogate medical decision maker: Trey Pickett, [place]. Code status: Full code. Smoking status: Never smoker Second hand tobacco smoke exposure: No Alcohol intake: never Substance use: never Substance use type: does not use Do You Feel Safe in your Home?: Yes Lack of Transportation: No Lack of Food: Never True Current Housing: I Have Housing Concerned About Future Housing: No Difficulty Paying Gas/Electric Bills: No Difficulty Paying for Meds: No Currently Unemployed: No Education: High School Diploma/GED Difficulty w/ Childcare or Family Care: No Additional living arrangements comments: . Lives with son in [place]. Spiritual care concerns: No Meds Home Medications and Allergies Home Medications ?Medication ?Instructions ?Recorded ?Confirmed ?Type acetaminophen 325 mg tablet (Mapap 650 mg (2 x 325 mg) PO Q4H PRN 07/02/23 04/19/25 Rx (acetaminophen)) Mild Pain (1-3) Or Fever #0 tabs silver 200 mcg/gram topical gel 1 applic topical DAILY 30 days #0 07/02/23 04/19/25 Rx (Silver-Sept) grams linezolid 600 mg tablet 600 mg PO Q12H 11 days #22 tabs 04/12/25 04/19/25 Rx losartan 50 mg tablet 50 mg PO DAILY #90 tabs 04/12/25 04/19/25 Rx sodium bicarbonate 650 mg tablet 1,300 mg (2 x 650 mg) PO BID 30 04/12/25 04/19/25 Rx days #120 tabs Allergies Allergy/AdvReac Type Severity Reaction Status Date / Time No Known Allergies Allergy Verified 04/04/25 11:37 Vital Signs Vital Signs - 24 hr 04/19/25 16:09 04/19/25 18:16 04/19/25 18:23 Temperature 33.4 C L Pulse Rate 44 L 56 L 52 L Respiratory Rate 18 18 20 Blood Pressure 100/65 113/39 L Pulse Oximetry 100 100 Oxygen Delivery Room Air 04/19/25 18:26 04/19/25 19:19 04/19/25 19:21 Temperature 34.0 C L 34.0 C L Pulse Rate 42 L 74 Respiratory Rate 20 15 Blood Pressure 83/34 L Pulse Oximetry 100 Oxygen Delivery 04/19/25 19:27 04/19/25 19:28 04/19/25 19:31 Temperature 33.9 C L 34.0 C L 33.9 C L Pulse Rate 71 74 61 Respiratory Rate 22 H 22 H 25 H Blood Pressure 91/45 L 91/45 L 91/38 L Pulse Oximetry 100 99 100 Oxygen Delivery 04/19/25 19:45 04/19/25 19:49 04/19/25 20:03 Temperature 33.9 C L 33.9 C L Pulse Rate 61 52 L Respiratory Rate 19 16 Blood Pressure 94/43 L Pulse Oximetry 100 Oxygen Delivery 04/19/25 20:06 04/19/25 20:12 04/19/25 20:21 Temperature 34.6 C L 34.6 C L Pulse Rate 65 Respiratory Rate 16 Blood Pressure 89/34 L Pulse Oximetry 100 Oxygen Delivery 04/19/25 20:43 04/19/25 21:29 04/19/25 21:30 Temperature 35.3 C L Pulse Rate 66 87 66 Respiratory Rate 23 H 25 H Blood Pressure 92/47 L 82/33 L 94/37 L Pulse Oximetry 100 99 Oxygen Delivery Room Air 04/19/25 21:45 04/19/25 21:45 04/19/25 22:47 Temperature 35.6 C L Pulse Rate 59 L 57 L Respiratory Rate 20 Blood Pressure 69/45 L 69/45 L Pulse Oximetry 99 Oxygen Delivery Room Air 04/20/25 00:00 04/20/25 00:00 04/20/25 00:00 Temperature Pulse Rate 64 65 Respiratory Rate Blood Pressure 79/48 L Pulse Oximetry Oxygen Delivery Room Air 04/20/25 00:00 04/20/25 02:00 04/20/25 02:00 Temperature 36.1 C L Pulse Rate 65 70 65 Respiratory Rate 20 20 Blood Pressure 98/60 L 113/56 L 94/64 L Pulse Oximetry 99 99 Oxygen Delivery 04/20/25 04:00 04/20/25 04:00 04/20/25 04:00 Temperature 36.8 C Pulse Rate 68 69 Respiratory Rate 20 Blood Pressure 88/48 L Pulse Oximetry 100 Oxygen Delivery Room Air 04/20/25 04:00 04/20/25 06:00 04/20/25 06:00 Temperature Pulse Rate 65 65 65 Respiratory Rate 20 Blood Pressure 94/64 L 94/64 L 99/50 L Pulse Oximetry 100 Oxygen Delivery 04/20/25 07:39 04/20/25 07:45 04/20/25 08:00 Temperature Pulse Rate 69 68 65 Respiratory Rate Blood Pressure 76/66 L 66/55 L 120/77 Pulse Oximetry Oxygen Delivery 04/20/25 08:00 04/20/25 08:08 Temperature Pulse Rate Respiratory Rate Blood Pressure Pulse Oximetry 96 Oxygen Delivery Room Air Room Air Exam Narrative: General: Old frail cachectic female laying in bed on her side rolled up into for position Lungs/Chest: Bibasilar crackles extensive scoliosis of spine Cardiac: RRR. Normal S1 S2. No murmurs Abdomen: Decrease bowel sounds. Cachectic. Soft. NT. ND. 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, right limb has extensive edema, several wounds covered under dressing, area of redness, blisters with fluid, right knee is also contracture in flexion position : Velez in place Neurologic: Patient is awake but not oriented, she answers questions intermittently by yes and follows commands both upper extremity MSK: Extensive scoliosis of spine and her neck is contracture towards the right side Results Labs 04/20/25 03:55 04/20/25 03:55 Labs: Short CBC 04/19/25 04/20/25 Range/Units 17:24 03:55 WBC 7.8 10.9 H (4.5-10.0) K/mm3 Hgb 10.2 L 8.2 L (12.0-15.0) g/dL Hct 33.6 L 26.4 L (37.0-47.0) % Plt Count 370 D 365 (150-375) k/mm3 BMP 04/19/25 04/20/25 04/20/25 17:24 03:55 03:55 Sodium 144 143 Potassium 5.4 H 3.8 Chloride 115 H 118 H Carbon Dioxide 8 L 11 L BUN 77 H D 69 H Creatinine 9.75 H 7.71 H 7.82 H Glucose 87 96 Calcium 8.7 7.3 L Cardiac Enzymes 04/19/25 04/20/25 Range/Units 17:24 03:55 Total Creatine Kinase 268 H 308 H (30-135) U/L Liver Function 04/19/25 04/20/25 Range/Units 17:24 03:55 Total Bilirubin 0.7 (0.2-1.3) mg/dL AST 40 H (14-36) U/L ALT 20 (6-35) U/L Alkaline Phosphatase 176 H (38-126) U/L Albumin 3.2 L 2.3 L (3.5-5.1) g/dL Urine 04/19/25 Range/Units 17:25 Urine Color Yellow (Yellow) Urine Appearance Cloudy H (Clear) Urine pH 5.0 (5.0-9.0) Ur Specific [place] 1.017 (1.001-1.035) Urine Protein 3+ H (Negative) mg/dL Urine Glucose (UA) Trace H (Negative) mg/dL Quality VTE Prophylaxis VTE prophylaxis: pharmacologic ordered Hospitalist MIPS Advance Care Plan I have confirmed that the patient's Advanced Care Plan is present, code status is documented, or surrogate decision maker is listed in patient medical record.: Yes Medication Reconciliation I have utilized all available resources to obtain, update and review the patients current medications (includes all prescriptions, OTC, herbals, cannabis, and nutritional supplements).: Yes
[2025-04-20] MEDS: HEPARIN SODIUM 5,000 UNITS/ML VIAL 5000 UNITS SUB-Q ×2 (09:56→20:07)
[2025-04-20] MEDS: LIDOCAINE 1% PF INJ 5 ML VIAL INFILTRATE (10:15)
[2025-04-20] MEDS: LINEZOLID 600 MG/300 ML 600 MG/300 ML SOLN 300 MG IVPB ×2 (11:33→20:07)
[2025-04-20] MEDS: SODIUM BICARBONATE TAB 650 MG TABLET 1300 MG PO ×2 (12:24→18:03)
--- NOTE | 2025-04-20 12:29 | P.CONNP_ITS ---
Assessment and Plan Assessment and plan (1) Acute kidney injury: Code(s): N17.9 - Acute kidney failure, unspecified Status: Acute Assessment and Plan: * Patient's baseline creatinine looks like it runs between 4.2 and 4.6. her creatinine was normal up until July of 2023. * Most likely this is chronic kidney disease as her creatinine stayed about the same through the last hospital stay. * evaluation to date noted: * renal ultrasound with small atrophic left kidney; unable to visualize right kidney due patient's contracted state * urine eosinophils negative * normal CPK * nephrotic range proteinuria * urine electrolytes prerenal * DOT was positive. Complements were okay. 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 Usually IgM does not filter into the kidneys and is not a problem for the kidney. Although this is just 1 more thing causing her debility. * If I knew that the kidney function was not going to get better than she would be a candidate for dialysis she refused dialysis last visit. In addition she is way too sick to initiate this. There is no acute issue pressing the matter. So at this point we will treat conservatively. (2) Anemia: Qualifiers: Anemia type: unspecified type Qualified Code(s): D64.9 - Anemia, unspecified Code(s): D64.9 - Anemia, unspecified Status: Acute Assessment and Plan: * The patient is still anemic but much better than the last visit. * Will give Epogen (3) Ground-level fall: Code(s): W18.30XA - Fall on same level, unspecified, initial encounter Status: Acute Assessment and Plan: * the patient apparently fell out of her wheelchair. (4) Hypertension: Qualifiers: Hypertension type: unspecified Qualified Code(s): I10 - Essential (primary) hypertension Code(s): I10 - Essential (primary) hypertension Status: Chronic Assessment and Plan: * With her hypotension her blood pressure meds are on hold (5) Septic shock: Code(s): A41.9 - Sepsis, unspecified organism; R65.21 - Severe sepsis with septic shock Status: Acute Assessment and Plan: the patient has apparent cellulitis of the right lower extremity and some pyuria. She is getting antibiotics. Cultures are all pending (6) Metabolic acidosis: Code(s): E87.20 - Acidosis, unspecified Status: Acute Assessment and Plan: her bicarbonate level is very low and the anion gap is high. She does have a chronically low bicarb in the teens as demonstrated back in March. Her lactic acid level was normal. Most likely her issue is one of retained uremic toxins History of Present Illness Reason for Consult Consult date: 04/20/25 Chief Complaint Chief complaint: failure to thrive, cellulitis, altered mental History of Present Illness Narrative: Daria is an unfortunate 69-year-old lady who has multiple medical problems including probable chronic kidney disease, anemia, right lower extremity edema, left [id number] amputation, hypertension, recent MSSA bacteremia with cellulitis, depression, anxiety, asthma, and arthritis. The patient was recently in the hospital for MSSA bacteremia. She had renal failure with a creatinine of 4. This was stable through the hospital stay. Ultrasound showed a very small kidney but they could only find 1 because of her body habitus/contractures. Labs revealed a small paraprotein level and also a positive DOT. However she was septic at that time so further evaluation was not done. In the note on March, Dr. Christian stated that I also told her son that in spite of the fact that she may need dialysis in the future, his mother is adamantly refusing this intervention under any circumstance. Patient was stabilized and [facility] a [facility]. However, her son was unhappy with the care there so he brought her home and she has been home lately. apparently she was in a wheelchair and fell out of the wheelchair so was brought to the hospital. here the patient has been very sick. She has very low blood pressure in is on pressors. He was very difficult to get access on her. Eventually a PICC line was placed and she is on phenylephrine for H bit betteher hypotension. Her blood pressure is a little . She also has severe acidosis. her lactic acid level was okay. her anion gap is elevated. The patient is unable to give a history. Most of the history was from the chart and nursing. Her right leg is swollen and red. She also has pyuria. She has been placed on linezolid plus cefepime staff is trying to get hold of the son to get a code status. [facility] Past Medical History Medical History Chronic kidney disease, stage 5 Chronic anemia Hypertension Depression with anxiety Arthritis Anxiety Asthma Lymphedema of right lower extremity Surgical History Surgical History History of tubal ligation History of bilateral carpal tunnel release History of bilateral cataract extraction History of left above knee amputation History of bilateral knee replacement Left 2014 Right 2014. Family History Family History Mother Cancer Father Cancer Social History Social History Social History: Surrogate medical decision maker: Trey Pickett, [place]. Code status: Full code. Smoking status: Never smoker Second hand tobacco smoke exposure: No Alcohol intake: never Substance use: never Substance use type: does not use Do You Feel Safe in your Home?: Yes Lack of Transportation: No Lack of Food: Never True Current Housing: I Have Housing Concerned About Future Housing: No Difficulty Paying Gas/Electric Bills: No Difficulty Paying for Meds: No Currently Unemployed: No Education: High School Diploma/GED Difficulty w/ Childcare or Family Care: No Additional living arrangements comments: . Lives with son in [place]. Spiritual care concerns: No Meds Home Medications and Allergies Home Medications ?Medication ?Instructions ?Recorded ?Confirmed ?Type acetaminophen 325 mg tablet (Mapap 650 mg (2 x 325 mg) PO Q4H PRN 07/02/23 04/19/25 Rx (acetaminophen)) Mild Pain (1-3) Or Fever #0 tabs silver 200 mcg/gram topical gel 1 applic topical DAILY 30 days #0 07/02/23 04/19/25 Rx (Silver-Sept) grams linezolid 600 mg tablet 600 mg PO Q12H 11 days #22 tabs 04/12/25 04/19/25 Rx losartan 50 mg tablet 50 mg PO DAILY #90 tabs 04/12/25 04/19/25 Rx sodium bicarbonate 650 mg tablet 1,300 mg (2 x 650 mg) PO BID 30 04/12/25 04/19/25 Rx days #120 tabs Allergies Allergy/AdvReac Type Severity Reaction Status Date / Time No Known Allergies Allergy Verified 04/04/25 11:37 Vital Signs Vital Signs - 24 hr 04/19/25 16:09 04/19/25 18:16 04/19/25 18:23 Temperature 92.2 F L Pulse Rate 44 L 56 L 52 L Respiratory Rate 18 18 20 Blood Pressure 100/65 113/39 L Pulse Oximetry 100 100 Oxygen Delivery Room Air 04/19/25 18:26 04/19/25 19:19 04/19/25 19:21 Temperature 93.2 F L 93.2 F L Pulse Rate 42 L 74 Respiratory Rate 20 15 Blood Pressure 83/34 L Pulse Oximetry 100 Oxygen Delivery 04/19/25 19:27 04/19/25 19:28 04/19/25 19:31 Temperature 93.1 F L 93.2 F L 93.1 F L Pulse Rate 71 74 61 Respiratory Rate 22 H 22 H 25 H Blood Pressure 91/45 L 91/45 L 91/38 L Pulse Oximetry 100 99 100 Oxygen Delivery 04/19/25 19:45 04/19/25 19:49 04/19/25 20:03 Temperature 93.1 F L 93.1 F L Pulse Rate 61 52 L Respiratory Rate 19 16 Blood Pressure 94/43 L Pulse Oximetry 100 Oxygen Delivery 04/19/25 20:06 04/19/25 20:12 04/19/25 20:21 Temperature 94.2 F L 94.2 F L Pulse Rate 65 Respiratory Rate 16 Blood Pressure 89/34 L Pulse Oximetry 100 Oxygen Delivery 04/19/25 20:43 04/19/25 21:29 04/19/25 21:30 Temperature 95.6 F L Pulse Rate 66 87 66 Respiratory Rate 23 H 25 H Blood Pressure 92/47 L 82/33 L 94/37 L Pulse Oximetry 100 99 Oxygen Delivery Room Air 04/19/25 21:45 04/19/25 21:45 04/19/25 22:47 Temperature 96.1 F L Pulse Rate 59 L 57 L Respiratory Rate 20 Blood Pressure 69/45 L 69/45 L Pulse Oximetry 99 Oxygen Delivery Room Air 04/20/25 00:00 04/20/25 00:00 04/20/25 00:00 Temperature Pulse Rate 64 65 Respiratory Rate Blood Pressure 79/48 L Pulse Oximetry Oxygen Delivery Room Air 04/20/25 00:00 04/20/25 02:00 04/20/25 02:00 Temperature 97 F L Pulse Rate 65 70 65 Respiratory Rate 20 20 Blood Pressure 98/60 L 113/56 L 94/64 L Pulse Oximetry 99 99 Oxygen Delivery 04/20/25 04:00 04/20/25 04:00 04/20/25 04:00 Temperature 98.2 F Pulse Rate 68 69 Respiratory Rate 20 Blood Pressure 88/48 L Pulse Oximetry 100 Oxygen Delivery Room Air 04/20/25 04:00 04/20/25 06:00 04/20/25 06:00 Temperature Pulse Rate 65 65 65 Respiratory Rate 20 Blood Pressure 94/64 L 94/64 L 99/50 L Pulse Oximetry 100 Oxygen Delivery 04/20/25 07:39 04/20/25 07:45 04/20/25 08:00 Temperature Pulse Rate 69 68 65 Respiratory Rate Blood Pressure 76/66 L 66/55 L 120/77 Pulse Oximetry Oxygen Delivery 04/20/25 08:00 04/20/25 08:00 04/20/25 08:00 Temperature Pulse Rate 68 66 Respiratory Rate 20 Blood Pressure 120/77 Pulse Oximetry 95 Oxygen Delivery Room Air 04/20/25 08:08 04/20/25 10:00 04/20/25 10:00 Temperature Pulse Rate 68 70 Respiratory Rate Blood Pressure 107/43 L Pulse Oximetry 96 Oxygen Delivery Room Air 04/20/25 10:00 04/20/25 12:00 Temperature Pulse Rate 64 65 Respiratory Rate 26 H Blood Pressure 111/59 L 141/65 H Pulse Oximetry 92 Oxygen Delivery Exam 2 Narrative: Exam Narrative: Well developed well-nourished in no acute distress Skin is warm and dry without rash Head normocephalic atraumatic Eyes normal sclerae and conjunctivae Mouth normal lips teeth and gums Neck no nodes no thyromegaly no carotid bruits Axillae no nodes Back no CVA tenderness Lungs symmetric and clear to auscultation and percussion Heart regular rate and rhythm without rub or gallop Abdomen bowel sounds positive soft nontender, no HSM, masses, or bruits. Extremities no cyanosis, clubbing, or edema Pulses 2+ equal in radial arteries Psychological not anxious or depressed Neuro alert and oriented x3 motor 5/5 cranial nerves 2-12 intact reflexes 2+ and equal in the biceps and patellar tendons cerebellar normal rapid alternating movements Results Lab Results 04/20/25 03:55 04/20/25 03:55 Lab results: Most recent lab results Calcium 7.3 mg/dL (8.4-10.2) L 04/20/25 03:55 Phosphorus 6.4 mg/dL (2.5-4.5) H 04/20/25 03:55 Magnesium 1.7 mg/dL (1.6-2.3) 04/20/25 03:55
[2025-04-20] MEDS: NOREPINEPHRINE 8 MG/D5W 250 ML 8 MG/250 ML BAG 9.38 MG IV CONT (12:40)
--- NOTE | 2025-04-20 12:44 | PCSTNOTE ---
Please refer to the Bedside Swallow Evaluation in the EMR. Please note, silent aspiration cannot be ruled out at bedside.
[2025-04-20] MEDS: EPOETIN ALFA-EPBX 10,000 UNITS/ML VIAL 10000 UNITS SUB-Q (15:05)
[2025-04-20] MEDS: CENTRAL LINE FLUSH 10 ML IV PUSH ×2 (15:05→21:08)
--- NOTE | 2025-04-20 16:07 | P.PNIM_ITS ---
Progress Note: A&P Assessment and Plan (1) Septic shock: Code(s): A41.9 - Sepsis, unspecified organism; R65.21 - Severe sepsis with septic shock Status: Acute (2) Acute renal failure superimposed on stage 5 chronic kidney disease, not on chronic dialysis: Qualifiers: Acute renal failure type: with acute tubular necrosis Qualified Code(s): N17.0 - Acute kidney failure with tubular necrosis; N18.5 - Chronic kidney disease, stage 5 Code(s): N17.9 - Acute kidney failure, unspecified; N18.5 - Chronic kidney disease, stage 5 Status: Acute (3) Acute hyperkalemia: Code(s): E87.5 - Hyperkalemia Status: Acute (4) MSSA bacteremia: Code(s): R78.81 - Bacteremia; B95.61 - Methicillin susceptible Staphylococcus aureus infection as the cause of diseases classified elsewhere Status: Acute (5) Hypothermia due to non-environmental cause: Code(s): R68.0 - Hypothermia, not associated with low environmental temperature Status: Acute (6) Cellulitis of lower leg: Code(s): L03.119 - Cellulitis of unspecified part of limb Status: Acute (7) Metabolic acidosis: Code(s): E87.20 - Acidosis, unspecified Status: Acute (8) Severe protein-calorie malnutrition: Code(s): E43 - Unspecified severe protein-calorie malnutrition Status: Acute Plan Patient presents with shock due to sepsis. Sepsis criteria met with profound hypothermia, tachypnea, hypotension despite adequate fluid resuscitation and acute on chronic kidney injury with metabolic encephalopathy. Source of sepsis could be due to cellulitis verses recurrent MSSA bacteremia. Is unclear if the patient was continuing with her antibiotic therapy with linezolid at home or not. Blood cultures were obtained in the ER. The patient received total of 3.5 L in fluid bolus which was much greater than 30 mL/kilos volume fluid resuscitation in remained hypotensive. Patient was subsequently started on peripheral pressor therapy with Gerson-Synephrine as we were unable to place a central line. Blood cultures were obtained and are pending. Will continue IV fluid hydration and will wean pressors as tolerated. Will continue pressors for goal maps of 65-70. Will repeat CBC with differential in a.m.. Will continue cefepime and vancomycin. Learning And Development Specialist has been consulted. Patient does have acute kidney injury on chronic kidney disease with associated hyperkalemia. The patient received insulin, dextrose, calcium gluconate, Lokelma and a nebulizer treatment in the ER. Patient's serum bicarb is acutely decompensated from baseline. Venous blood gas was obtained after my evaluation which demonstrated severe metabolic acidosis with compensatory respiratory alkalosis. You acute metabolic acidosis is new patient had prior chronic metabolic acidosis that was compensated during last hospitalization. Patient's was given a amp of sodium bicarb and started on bicarb drip. Will repeat electrolyte panel including phosphorus and magnesium in a.m.. Will consult Nephrology. Patient has severe protein calorie malnutrition and is cachectic. She benefit from nutritional supplementation when clinically stable. Patient arrived to the ER disheveled with multiple wounds in bruises. Poor living conditions reported by EMS. Care coordination consult has been placed. patient came to the ER and EMS reported poor living condition and patient with wound and bruising with animal hair per nursing, staff, patient was sent to ER after she fell from her wheel chair unfortunately patient in unable to provibe any ROS or history, patient is found to have CKD and needs of HD however patient has refused it, patient is seen by preliminary school psychologist and pst specialist and appreciate. Subjective Date/time seen: 04/20/25 16:07 Interval history: Chief Complaint: Fall from wheelchair H&P-Narrative: 69-year-old female with a past medical history of chronic anemia, lymphedema of the right lower extremity, prior left [id number] amputation, essential hypertension, depression and anxiety and chronic kidney disease stage 5, and recent hospitalization with severe anemia, MSSA bacteremia and ulcer with cellulitis of the right knee who presented to the ER via EMS after having a fall out of her wheelchair. Source of information is from the ER records and past medical records patient is only alert oriented to her name at the time of my evaluation. Per ER records the patient's son called EMS after patient fell out of her wheelchair. She was reportedly not on the floor for very long. She was alert orient x2 per EMS. The patient had numerous scabs on her lower extremity which were covered in animal hair. Patient reportedly was found to have roaches on her at the home. Patient is diabetic and does not check her blood sugars at home. In the ER the patient was found to be profoundly hypothermic with an initial temperature of 92.2?. Her initial blood pressures were normal but quickly downtrended to the 80s and 90s systolic. She received 2 L of normal saline and 1.5 L of LR in remained hypotensive. Her blood pressures shortly after arrival to the ICU where his low as 69/45 after Gerson-Synephrine had already been started. I evaluated the patient down in the ER at which time the ER physician was trying to place a central line. Due to the patient's contractures and anatomy the only viable option for central line placement was the left IJ and after numerous attempts efforts were ceased. The patient was started on Gerson-Synephrine peripherally. White count was normal and hemoglobin was slightly increased from prior value of 9. Patient had mild hyperkalemia and acutely worsening creatinine from baseline of 4.5 up to 9. Serum bicarb was low at 8. Patient was initially started on Ancef for cellulitis but was switched to broad- spectrum antibiotic coverage with cefepime and vancomycin. Patient did have mildly elevated CK level in the ER. Patient had been admitted to the hospital 04/04/2025 through 04/12/2025 and was noted to have profound anemia with hemoglobin of 3.4. She received 3 units of packed red blood cells with improvement in her hemoglobin at that time her stool occult blood was negative. She was also found to have MSSA bacteremia with echocardiogram negative for evidence of vegetation with repeat blood cultures that were negative. Patient was initially treated with Rocephin and vancomycin but was switched to linezolid at discharge. It is unclear if the patient has been compliant with linezolid after discharge. She was supposed to stay on linezolid until 04/24/2025. Patient was evaluated by Nephrology during prior visit and was found to have chronic kidney disease with prior baseline less than 1 in 2022 with value on discharge of 4. She was noted to have an DOT positive indeterminate double-stranded DNA antibody, and ANCA negative, SPEP with poorly defined band possible M spike but normal urine protein electrophoresis. She had nephrotic range proteinuria and normal kappa lambda ratio. Her and complements were negative. Patient had previously refused hemodialysis. patient came to the ER and EMS reported poor living condition and patient with wound and bruising with animal hair per nursing, staff, patient was sent to ER after she fell from her wheel chair unfortunately patient in unable to provibe any ROS or history, patient is found to have CKD and needs of HD however patient has refused it, patient is seen by preliminary school psychologist and pst specialist and appreciate. Review of Systems Review of Systems: ROS unobtainable: Yes unobtainable due to medical condition and unobtainable due to mental status Exam Narrative: unable to fully examine as patient is contracte upper and lower extremities with bruising and sores Patient is comfortable, NAD HEENT: eyes are clear and none icteric Lower extremities: edema bruised and sores SKIN: nonjaundiced, bruised and sores Neuro: grossly intact. Objective Data Vital Signs Vital Signs: Vital Signs - 24 hr 04/19/25 16:09 04/19/25 18:16 04/19/25 18:23 Temperature 33.4 C L Pulse Rate 44 L 56 L 52 L Respiratory Rate 18 18 20 Blood Pressure 100/65 113/39 L Pulse Oximetry 100 100 Oxygen Delivery Room Air 04/19/25 18:26 04/19/25 19:19 04/19/25 19:21 Temperature 34.0 C L 34.0 C L Pulse Rate 42 L 74 Respiratory Rate 20 15 Blood Pressure 83/34 L Pulse Oximetry 100 Oxygen Delivery 04/19/25 19:27 04/19/25 19:28 04/19/25 19:31 Temperature 33.9 C L 34.0 C L 33.9 C L Pulse Rate 71 74 61 Respiratory Rate 22 H 22 H 25 H Blood Pressure 91/45 L 91/45 L 91/38 L Pulse Oximetry 100 99 100 Oxygen Delivery 04/19/25 19:45 04/19/25 19:49 04/19/25 20:03 Temperature 33.9 C L 33.9 C L Pulse Rate 61 52 L Respiratory Rate 19 16 Blood Pressure 94/43 L Pulse Oximetry 100 Oxygen Delivery 04/19/25 20:06 04/19/25 20:12 04/19/25 20:21 Temperature 34.6 C L 34.6 C L Pulse Rate 65 Respiratory Rate 16 Blood Pressure 89/34 L Pulse Oximetry 100 Oxygen Delivery 04/19/25 20:43 04/19/25 21:29 04/19/25 21:30 Temperature 35.3 C L Pulse Rate 66 87 66 Respiratory Rate 23 H 25 H Blood Pressure 92/47 L 82/33 L 94/37 L Pulse Oximetry 100 99 Oxygen Delivery Room Air 04/19/25 21:45 04/19/25 21:45 04/19/25 22:47 Temperature 35.6 C L Pulse Rate 59 L 57 L Respiratory Rate 20 Blood Pressure 69/45 L 69/45 L Pulse Oximetry 99 Oxygen Delivery Room Air 04/20/25 00:00 04/20/25 00:00 04/20/25 00:00 Temperature Pulse Rate 64 65 Respiratory Rate Blood Pressure 79/48 L Pulse Oximetry Oxygen Delivery Room Air 04/20/25 00:00 04/20/25 02:00 04/20/25 02:00 Temperature 36.1 C L Pulse Rate 65 70 65 Respiratory Rate 20 20 Blood Pressure 98/60 L 113/56 L 94/64 L Pulse Oximetry 99 99 Oxygen Delivery 04/20/25 04:00 04/20/25 04:00 04/20/25 04:00 Temperature 36.8 C Pulse Rate 68 69 Respiratory Rate 20 Blood Pressure 88/48 L Pulse Oximetry 100 Oxygen Delivery Room Air 04/20/25 04:00 04/20/25 06:00 04/20/25 06:00 Temperature Pulse Rate 65 65 65 Respiratory Rate 20 Blood Pressure 94/64 L 94/64 L 99/50 L Pulse Oximetry 100 Oxygen Delivery 04/20/25 07:39 04/20/25 07:45 04/20/25 08:00 Temperature Pulse Rate 69 68 65 Respiratory Rate Blood Pressure 76/66 L 66/55 L 120/77 Pulse Oximetry Oxygen Delivery 04/20/25 08:00 04/20/25 08:00 04/20/25 08:00 Temperature Pulse Rate 68 66 Respiratory Rate 20 Blood Pressure 120/77 Pulse Oximetry 95 Oxygen Delivery Room Air 04/20/25 08:08 04/20/25 10:00 04/20/25 10:00 Temperature Pulse Rate 68 70 Respiratory Rate Blood Pressure 107/43 L Pulse Oximetry 96 Oxygen Delivery Room Air 04/20/25 10:00 04/20/25 12:00 04/20/25 12:00 Temperature Pulse Rate 64 65 Respiratory Rate 26 H Blood Pressure 111/59 L 141/65 H Pulse Oximetry 92 Oxygen Delivery Room Air 04/20/25 12:00 04/20/25 12:00 04/20/25 12:40 Temperature 36.8 C Pulse Rate 59 L 67 71 Respiratory Rate 16 Blood Pressure 141/65 H 149/83 H Pulse Oximetry 94 Oxygen Delivery 04/20/25 12:43 04/20/25 13:09 04/20/25 13:46 Temperature Pulse Rate 69 65 63 Respiratory Rate Blood Pressure 123/77 154/62 H 95/44 L Pulse Oximetry Oxygen Delivery 04/20/25 14:00 04/20/25 14:17 04/20/25 15:15 Temperature Pulse Rate 65 62 65 Respiratory Rate Blood Pressure 93/60 L 86/38 L 97/44 L Pulse Oximetry Oxygen Delivery Intake/Output Intake/Output: Intake & Output 04/17/25 04/18/25 04/19/25 04/20/25 23:59 23:59 23:59 23:59 Intake Total 3153 1672.2 Output Total 50 Balance 3153 1622.2 Meds/Results Medications: Active Medications Generic Name Dose Route Start Last Admin Trade Name Freq PRN Reason Stop Dose Admin Acetaminophen 650 mg 04/19/25 22:52 Acetaminophen 325 Mg Tablet PO Q4H PRN Mild Pain (1-3) Or Fever Dextrose 12.5 gm 04/20/25 01:24 Dextrose 50% 25 Gm/50 Ml Syringe IV PUSH PRN PRN Hypoglycemia Protocol Epoetin Sav-epbx 10,000 units 04/20/25 12:45 04/20/25 15:05 Epoetin Sav-Epbx 10,000 Units/Ml Vial SUB-Q 10,000 units TUTHSA@09 [facility] Administration Glucagon 1 mg 04/20/25 01:24 Glucagon For Inj 1 Mg Vial IM PRN PRN Hypoglycemia Protocol Glucose 15 gm 04/20/25 01:24 Glucose Oral Gel 15 Gm Of Glucse In 37.5 Gm Tube PO PRN PRN Hypoglycemia Protocol Heparin Sodium (Porcine) 5,000 units 04/20/25 09:00 04/20/25 09:56 Heparin Sodium 5,000 Units/Ml Vial SUB-Q 5,000 units Q12HR LISANDRA Administration Cefepime HCl 1 gm in 50 mls @ 100 mls/hr 04/20/25 22:00 Maxipime 1 Gm/Ns 50 Ml IVPB Q24H [facility] Sodium Bicarbonate 150 meq/ 1,100 mls @ 150 mls/hr 04/20/25 00:15 04/20/25 12:42 Dextrose IV CONT Not Given .Q7H20M LISANDRA Dextrose 1,000 mls @ 100 mls/hr 04/20/25 01:24 Dextrose 5% 1,000 Ml IVPB PRN PRN Hypoglycemia Protocol Albumin Human 100 mls @ 60 mls/hr 04/20/25 18:00 Albutein IVPB Q6HR LISANDRA Linezolid 600 mg in 300 mls @ 300 mls/hr 04/20/25 09:45 04/20/25 11:33 Zyvox IVPB 300 mls/hr Q12HR LISANDRA Administration Norepinephrine Bitartrate 8 mg in 250 mls @ 15 mls/hr 04/20/25 12:05 04/20/25 15:15 Levophed 8 Mg/D5w 250 Ml IV CONT 8 mcg/min .[id number] LISANDRA 15 mls/hr Titration Protocol 8 MCG/MIN Miscellaneous Information 1 each 04/19/25 00:01 Silver [Silver-Sept] 200 Mcg/Gram Gel Is Nonformulary, We Only Carry Silver Sulfadiazine C XX 05/19/25 00:00 CLARIFY LISANDRA Non-Formulary Medication 1 applic 04/20/25 09:00 Silver [Silver-Sept] TOPICAL 05/20/25 08:59 DAILY LISANDRA Sodium Bicarbonate 1,300 mg 04/20/25 09:00 04/20/25 12:24 Sodium Bicarbonate Tab 650 Mg Tablet PO 1,300 mg BID LISANDRA Administration Sodium Chloride 10 ml 04/20/25 14:00 04/20/25 15:05 Central Line Flush IV PUSH 10 ml Q8HR LISANDRA Administration Sodium Chloride 10 ml 04/20/25 11:09 Central Line Flush IV PUSH PRN PRN with TPN bag changes Sodium Chloride 20 ml 04/20/25 11:09 Central Line Flush IV PUSH PRN PRN after blood draws Radiology Results: ITS Impressions Head CT 04/19/25 17:49 IMPRESSION: No acute intracranial process. Cervical Spine CT 04/19/25 17:52 IMPRESSION: No acute fracture or traumatic malalignment in the cervical spine. Chest X-Ray 04/19/25 18:03 IMPRESSION: No acute cardiopulmonary process. Hip/Pelvis X-Ray 04/19/25 18:05 IMPRESSION: No definite fracture or hardware related complication, however examination is severely limited by difficulty with positioning. If there is persistent pain or clinical suspicion of injury is high, consider CT of the pelvis for further evaluation. Venous Doppler Study 04/19/25 18:09 IMPRESSION: Right popliteal vein not adequately visualized. Otherwise patent right lower extremity veins. No evidence of deep venous thrombosis. Labs Labs: Laboratory Results - last 24 hr 04/19/25 04/19/25 04/19/25 17:24 17:25 19:52 WBC 7.8 RBC 3.92 L Hgb 10.2 L Hct 33.6 L MCV 85.7 MCH 26.0 MCHC 30.4 L RDW 23.3 H Plt Count 370 D MPV 9.4 Immature Gran % (Auto) 0.4 Neut % (Auto) 78.2 H Lymph % (Auto) 14.3 L [place] % (Auto) 5.4 Eos % (Auto) 1.4 Baso % (Auto) 0.3 Lymph # (Auto) 1.11 [place] # (Auto) 0.4 Eos # (Auto) 0.1 Baso # (Auto) 0.0 Abs Immat Gran (auto) 0.03 Absolute Neuts (auto) 6.1 Absolute Nucleated RBC 0.040 H Band Neutrophils % Not Reportable Nucleated RBC % 0.5 H Platelet Estimate Slightly increased Poikilocytosis 1+ Anisocytosis 2+ Crenated Cell Schistocytes None seen ESR 103 H PT 16.2 H INR 1.3 APTT 38.7 H VBG pH VBG pCO2 VBG pO2 VBG HCO3 O2 Delivery Device O2 Liters/Min FiO2 Sodium 144 Potassium 5.4 H Chloride 115 H Carbon Dioxide 8 L Anion Gap 21 H BUN 77 H D Creatinine 9.75 H Estim Creat Clear Calc Not Reportable Estimated GFR 4 L Glucose 87 POC Capillary Glucose 120 H Lactic Acid Calcium 8.7 Phosphorus Magnesium 2.3 Total Bilirubin 0.7 AST 40 H ALT 20 Alkaline Phosphatase 176 H Total Creatine Kinase 268 H C-Reactive Protein 14.8 H Total Protein 7.3 Albumin 3.2 L Procalcitonin 1.5 TSH (Reflex) 3.550 Urine Color Yellow Urine Appearance Cloudy H Urine pH 5.0 Ur Specific [place] 1.017 Urine Protein 3+ H Urine Glucose (UA) Trace H Urine Ketones Negative Ur Blood (Man) 3+ H Urine Nitrate Negative Urine Bilirubin Negative Urine Urobilinogen 0.2 Add Ur Microanalysis Reviewed Leukocyte Esterase Rfl Trace H Urine RBC 6-10 H Urine WBC 0-5 Ur Squamous Epith Cells None seen Ur Transition Epith Cell Few H Urine Bacteria None seen Urine Casts 0-2 Nasal MRSA (PCR) 04/19/25 04/19/25 04/20/25 23:21 23:25 03:55 WBC 10.9 H RBC 3.16 L Hgb 8.2 L Hct 26.4 L MCV 83.5 MCH 25.9 L MCHC 31.1 L RDW 23.4 H Plt Count 365 MPV 9.3 Immature Gran % (Auto) 0.5 Neut % (Auto) 77.4 H Lymph % (Auto) 13.2 L [place] % (Auto) 6.0 Eos % (Auto) 2.6 Baso % (Auto) 0.3 Lymph # (Auto) 1.44 [place] # (Auto) 0.7 H Eos # (Auto) 0.3 Baso # (Auto) 0.0 Abs Immat Gran (auto) 0.05 H Absolute Neuts (auto) 8.4 H Absolute Nucleated RBC 0.030 H Band Neutrophils % Not Reportable Nucleated RBC % 0.3 H Platelet Estimate Adequate Poikilocytosis Anisocytosis 2+ Crenated Cell 1+ Schistocytes Rare ESR PT 17.2 H INR 1.4 APTT 40.5 H VBG pH 7.283 L VBG pCO2 24.4 L* VBG pO2 50.5 H VBG HCO3 11.3 L O2 Delivery Device Room air O2 Liters/Min Not Reportable FiO2 21 Sodium 143 Potassium 3.8 Chloride 118 H Carbon Dioxide 11 L Anion Gap 14 H BUN 69 H Creatinine 7.71 H Estim Creat Clear Calc Estimated GFR Glucose POC Capillary Glucose Lactic Acid 2.0 Calcium Phosphorus Magnesium Total Bilirubin AST ALT Alkaline Phosphatase Total Creatine Kinase C-Reactive Protein Total Protein Albumin Procalcitonin TSH (Reflex) Urine Color Urine Appearance Urine pH Ur Specific [place] Urine Protein Urine Glucose (UA) Urine Ketones Ur Blood (Man) Urine Nitrate Urine Bilirubin Urine Urobilinogen Add Ur Microanalysis Leukocyte Esterase Rfl Urine RBC Urine WBC Ur Squamous Epith Cells Ur Transition Epith Cell Urine Bacteria Urine Casts Nasal MRSA (PCR) Not detected 04/20/25 04/20/25 04/20/25 03:55 03:55 03:55 WBC RBC Hgb Hct MCV MCH MCHC RDW Plt Count MPV Immature Gran % (Auto) Neut % (Auto) Lymph % (Auto) [place] % (Auto) Eos % (Auto) Baso % (Auto) Lymph # (Auto) [place] # (Auto) Eos # (Auto) Baso # (Auto) Abs Immat Gran (auto) Absolute Neuts (auto) Absolute Nucleated RBC Band Neutrophils % Nucleated RBC % Platelet Estimate Poikilocytosis Anisocytosis Crenated Cell Schistocytes ESR PT INR APTT VBG pH VBG pCO2 VBG pO2 VBG HCO3 O2 Delivery Device O2 Liters/Min FiO2 Sodium Potassium Chloride Carbon Dioxide Anion Gap BUN Creatinine 7.82 H Estim Creat Clear Calc 4 4 Estimated GFR 5 L 5 L Glucose 96 POC Capillary Glucose Lactic Acid Calcium 7.3 L Phosphorus 6.4 H Magnesium 1.7 Total Bilirubin AST ALT Alkaline Phosphatase Total Creatine Kinase 308 H C-Reactive Protein 15.0 H Total Protein Albumin 2.3 L Procalcitonin TSH (Reflex) Urine Color Urine Appearance Urine pH Ur Specific [place] Urine Protein Urine Glucose (UA) Urine Ketones Ur Blood (Man) Urine Nitrate Urine Bilirubin Urine Urobilinogen Add Ur Microanalysis Leukocyte Esterase Rfl Urine RBC Urine WBC Ur Squamous Epith Cells Ur Transition Epith Cell Urine Bacteria Urine Casts Nasal MRSA (PCR) Quality VTE Prophylaxis VTE prophylaxis: pharmacologic ordered
[2025-04-20] MEDS: ALBUMIN HUMAN 25% 25 GM/100 ML 100 ML IVPB ×2 (18:03→23:32)
[2025-04-20] MEDS: CEFEPIME 1 GM/NS 50 ML 1 GM/50 ML BAG IVPB (21:07)
[2025-04-21] VITALS (34 sets, daily range): BP systolic 77–122; BP diastolic 42–80; PULSE 57–87; RESP 14–21; TEMP 35.4–36.5; O2SAT 98–100
[2025-04-21 00:30] LABS: Glucose Point of Care 102 mg/dl (65-105)
[2025-04-21] MEDS: CENTRAL LINE FLUSH 10 ML IV PUSH ×3 (05:00→21:16)
[2025-04-21] MEDS: ALBUMIN HUMAN 25% 25 GM/100 ML 100 ML IVPB (05:00)
[2025-04-21 05:45] LABS: Hematocrit 24.1 % (37.0-47.0); Hemoglobin 7.5 g/dL (12.0-15.0); Mean Corpuscular HGB Conc 31.1 g/dl (32-36); Mean Corpuscular Hemoglobin 26.8 pg (26-34); Mean Corpuscular Volume 86.1 fl (80-100); Mean Platelet Volume 9.5 fl (7.4-10.4); Platelet Count Result 232 k/mm3 (150-375); Red Cell Distribution Width 24.4 % (11.5-14.5); White Blood Count 8.1 K/mm3 (4.5-10.0)
[2025-04-21 06:11] LABS: Alanine Aminotransferase 13 U/L (6-35); Albumin Level 2.7 g/dL (3.5-5.1); Alkaline Phosphatase 77 U/L (38-126); Anion Gap 15 mmol/L (4-12); Aspartate Amino Transferase 34 U/L (14-36); Bilirubin,Total 0.6 mg/dL (0.2-1.3); Blood Urea Nitrogen 63 mg/dL (7-17); Calcium 6.7 mg/dL (8.4-10.2); Carbon Dioxide 19 mmol/L (22-30); Chloride 111 mmol/L (98-107); Estimated CRCL calculation 5 ml/min; Estimated Glomerular Filt Rate 6; Glucose 84 mg/dL (65-110); Magnesium 1.6 mg/dL (1.6-2.3); Phosphorus 6.2 mg/dL (2.5-4.5); Potassium 3.2 mmol/L (3.4-5.0); Sodium 145 mmol/L (137-145); Total Protein 5.3 g/dL (6.3-8.2)
[2025-04-21] MEDS: MIDODRINE HCL 10 MG TABLET PO ×3 (09:00→17:38)
[2025-04-21] MEDS: SODIUM BICARBONATE TAB 650 MG TABLET 1300 MG PO ×2 (09:00→17:38)
[2025-04-21] MEDS: CALCIUM GLUC 2,000 MG/NS 100ML 2,000 MG/100 ML BAG 100 MG IVPB (09:07)
[2025-04-21] MEDS: LINEZOLID 600 MG/300 ML 600 MG/300 ML SOLN 300 MG IVPB ×2 (09:07→21:14)
[2025-04-21] MEDS: POTASSIUM CHLORIDE 20 MEQ PACKET (FOR LIQUID) 40 MEQ PO (09:11)
[2025-04-21] MEDS: HEPARIN SODIUM 5,000 UNITS/ML VIAL 5000 UNITS SUB-Q ×2 (09:11→21:13)
--- NOTE | 2025-04-21 10:10 | P.PNNP_ITS ---
Progress Note: A&P Assessment and Plan (1) Acute kidney injury: Code(s): N17.9 - Acute kidney failure, unspecified Status: Acute Assessment and Plan: * Patient's baseline creatinine looks like it runs between 4.2 and 4.6. her creatinine was normal up until July of 2023. * Most likely this is chronic kidney disease as her creatinine stayed about the same through the last hospital stay. * evaluation to date noted: * renal ultrasound with small atrophic left kidney; unable to visualize right kidney due patient's contracted state * urine eosinophils negative * normal CPK * nephrotic range proteinuria * urine electrolytes prerenal * DOT was positive. Complements were okay. 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 Usually IgM does not filter into the kidneys and is not a problem for the kidney. Although this is just 1 more thing causing her debility. * The patient's renal function is a little bit better. * I did discuss dialysis with her if it was needed and the patient adamantly refused * Discussed with Dr. Titus (2) Anemia: Qualifiers: Anemia type: unspecified type Qualified Code(s): D64.9 - Anemia, unspecified Code(s): D64.9 - Anemia, unspecified Status: Acute Assessment and Plan: * The patient is still anemic but much better than the last visit. * Hemoglobin 7.5 today. It is dropping, probably related to IV fluid administration necessary to help her blood pressure * Will give Epogen (3) Ground-level fall: Code(s): W18.30XA - Fall on same level, unspecified, initial encounter Status: Acute Assessment and Plan: * the patient apparently fell out of her wheelchair. (4) Hypertension: Qualifiers: Hypertension type: unspecified Qualified Code(s): I10 - Essential (primary) hypertension Code(s): I10 - Essential (primary) hypertension Status: Chronic Assessment and Plan: * With her hypotension her blood pressure meds are on hold (5) Septic shock: Code(s): A41.9 - Sepsis, unspecified organism; R65.21 - Severe sepsis with septic shock Status: Acute Assessment and Plan: the patient has apparent cellulitis of the right lower extremity and some pyuria. She is getting cefepime and linezolid.. Cultures are all pending (6) Metabolic acidosis: Code(s): E87.20 - Acidosis, unspecified Status: Acute Assessment and Plan: her bicarbonate level is improved. Anion gap is still high. It is better than it was on admission Most likely her issue is one of retained uremic toxins Subjective Date/time seen: 04/21/25 10:10 Interval history: Patient is awake today. She feels better. She does not remember anything about yesterday We discussed her kidneys. The patient adamantly refuses dialysis. Likely could she does not need it now since her creatinine is a little bit better. Review of Systems Cardiovascular: Cardiovascular: Reports no additional cardiovascular complaints Respiratory: Respiratory: Reports no additional respiratory complaints Gastrointestinal: Gastrointestinal: Reports no additional gastrointestinal complaints Genitourinary: Genitourinary: Reports no additional female genitourinary complaints Exam Narrative: WD poorly nourished female in NAD skin no rash head ncat lungs clear cor reg no rub abd BS+ nontender and soft ext 1 to2+ edema in the right leg below the knee with some erythema Objective Data Vital Signs Vital Signs: Vital Signs - 24 hr 04/20/25 12:00 04/20/25 12:00 04/20/25 12:00 Temperature Pulse Rate 65 59 L Respiratory Rate Blood Pressure 141/65 H Pulse Oximetry Oxygen Delivery Room Air 04/20/25 12:00 04/20/25 12:40 04/20/25 12:43 Temperature 98.2 F Pulse Rate 67 71 69 Respiratory Rate 16 Blood Pressure 141/65 H 149/83 H 123/77 Pulse Oximetry 94 Oxygen Delivery 04/20/25 13:09 04/20/25 13:46 04/20/25 14:00 Temperature Pulse Rate 65 63 65 Respiratory Rate Blood Pressure 154/62 H 95/44 L 93/60 L Pulse Oximetry Oxygen Delivery 04/20/25 14:00 04/20/25 14:00 04/20/25 14:17 Temperature 97.8 F Pulse Rate 61 61 62 Respiratory Rate 16 Blood Pressure 95/44 L 86/38 L Pulse Oximetry 94 Oxygen Delivery 04/20/25 15:15 04/20/25 16:00 04/20/25 16:00 Temperature Pulse Rate 65 66 Respiratory Rate Blood Pressure 97/44 L Pulse Oximetry Oxygen Delivery Room Air 04/20/25 16:00 04/20/25 16:00 04/20/25 18:00 Temperature 97.5 F L Pulse Rate 64 63 62 Respiratory Rate 13 Blood Pressure 104/59 L 104/59 L Pulse Oximetry 89 L Oxygen Delivery 04/20/25 18:00 04/20/25 18:00 04/20/25 19:15 Temperature 97.4 F L Pulse Rate 67 72 66 Respiratory Rate 18 Blood Pressure 106/64 107/59 L 109/58 L Pulse Oximetry 94 Oxygen Delivery 04/20/25 19:30 04/20/25 20:00 04/20/25 20:00 Temperature 97.3 F L Pulse Rate 75 63 66 Respiratory Rate 18 Blood Pressure 109/58 L 104/58 L Pulse Oximetry 96 Oxygen Delivery 04/20/25 20:00 04/20/25 20:15 04/20/25 20:30 Temperature Pulse Rate 68 73 Respiratory Rate Blood Pressure 119/60 114/65 Pulse Oximetry Oxygen Delivery Room Air 04/20/25 21:15 04/20/25 21:30 04/20/25 21:45 Temperature Pulse Rate 77 72 79 Respiratory Rate Blood Pressure 108/53 L 85/63 L 115/57 L Pulse Oximetry Oxygen Delivery 04/20/25 22:00 04/20/25 22:00 04/20/25 22:45 Temperature 96.4 F L Pulse Rate 62 62 63 Respiratory Rate 18 Blood Pressure 120/60 105/56 L Pulse Oximetry 97 Oxygen Delivery 04/20/25 23:00 04/20/25 23:15 04/21/25 00:00 Temperature Pulse Rate 60 62 64 Respiratory Rate Blood Pressure 106/57 L 116/58 L 106/63 Pulse Oximetry Oxygen Delivery 04/21/25 00:00 04/21/25 00:00 04/21/25 00:00 Temperature 96.4 F L Pulse Rate 64 64 Respiratory Rate 20 Blood Pressure 106/63 Pulse Oximetry 98 Oxygen Delivery Room Air 04/21/25 01:00 04/21/25 01:15 04/21/25 01:30 Temperature Pulse Rate 63 63 61 Respiratory Rate Blood Pressure 111/58 L 96/49 L 93/53 L Pulse Oximetry Oxygen Delivery 04/21/25 02:00 04/21/25 02:00 04/21/25 02:00 Temperature 96.4 F L Pulse Rate 62 62 62 Respiratory Rate 15 Blood Pressure 95/49 L 95/49 L Pulse Oximetry 98 Oxygen Delivery 04/21/25 02:15 04/21/25 03:45 04/21/25 04:00 Temperature Pulse Rate 65 62 87 Respiratory Rate Blood Pressure 103/55 L 110/55 L Pulse Oximetry Oxygen Delivery 04/21/25 04:00 04/21/25 04:00 04/21/25 04:00 Temperature 96.2 F L Pulse Rate 61 61 Respiratory Rate 15 Blood Pressure 104/52 L 104/52 L Pulse Oximetry 99 Oxygen Delivery Room Air 04/21/25 05:00 04/21/25 05:15 04/21/25 05:45 Temperature 95.8 F L Pulse Rate 61 62 Respiratory Rate Blood Pressure 103/50 L 122/55 L Pulse Oximetry Oxygen Delivery 04/21/25 06:00 04/21/25 06:00 04/21/25 06:00 Temperature 95.8 F L 95.8 F L Pulse Rate 59 L 59 L Respiratory Rate 16 Blood Pressure 96/52 L Pulse Oximetry 98 Oxygen Delivery 04/21/25 06:15 04/21/25 06:15 04/21/25 06:30 Temperature 95.8 F L 95.8 F L Pulse Rate 61 Respiratory Rate Blood Pressure 96/52 L Pulse Oximetry Oxygen Delivery 04/21/25 06:45 04/21/25 08:00 Temperature 95.9 F L Pulse Rate 62 Respiratory Rate Blood Pressure 96/49 L Pulse Oximetry Oxygen Delivery Intake/Output Intake/Output: Intake & Output 04/18/25 04/19/25 04/20/25 04/21/25 23:59 23:59 23:59 23:59 Intake Total 3153 3028.1 285.5 Output Total 150 300 Balance 3153 2878.1 -14.5 Meds/Results Medications: Active Medications Generic Name Dose Route Start Last Admin Trade Name Freq PRN Reason Stop Dose Admin Acetaminophen 650 mg 04/19/25 22:52 Acetaminophen 325 Mg Tablet PO Q4H PRN Mild Pain (1-3) Or Fever Dextrose 12.5 gm 04/20/25 01:24 Dextrose 50% 25 Gm/50 Ml Syringe IV PUSH PRN PRN Hypoglycemia Protocol Epoetin Sav-epbx 10,000 units 04/20/25 12:45 04/20/25 15:05 Epoetin Sav-Epbx 10,000 Units/Ml Vial SUB-Q 10,000 units TUTHSA@09 LISANDRA Administration Glucagon 1 mg 04/20/25 01:24 Glucagon For Inj 1 Mg Vial IM PRN PRN Hypoglycemia Protocol Glucose 15 gm 04/20/25 01:24 Glucose Oral Gel 15 Gm Of Glucse In 37.5 Gm Tube PO PRN PRN Hypoglycemia Protocol Heparin Sodium (Porcine) 5,000 units 04/20/25 09:00 04/21/25 09:11 Heparin Sodium 5,000 Units/Ml Vial SUB-Q 5,000 units Q12HR LISANDRA Administration Cefepime HCl 1 gm in 50 mls @ 100 mls/hr 04/20/25 22:00 04/20/25 21:37 Maxipime 1 Gm/Ns 50 Ml IVPB Infused Q24H LISANDRA Infusion Dextrose 1,000 mls @ 100 mls/hr 04/20/25 01:24 Dextrose 5% 1,000 Ml IVPB PRN PRN Hypoglycemia Protocol Linezolid 600 mg in 300 mls @ 300 mls/hr 04/20/25 09:45 04/21/25 09:07 Zyvox IVPB 300 mls/hr Q12HR LISANDRA Administration Norepinephrine Bitartrate 8 mg in 250 mls @ 3.75 mls/hr 04/20/25 12:05 04/21/25 08:00 Levophed 8 Mg/D5w 250 Ml IV CONT 2 mcg/min .Q24H LISANDRA 3.75 mls/hr Titration Protocol 2 MCG/MIN Midodrine 10 mg 04/21/25 09:00 04/21/25 09:00 Midodrine Hcl 10 Mg Tablet PO 10 mg TID LISANDRA Administration Miscellaneous Information 1 each 04/19/25 00:01 04/20/25 18:24 Silver [Silver-Sept] 200 Mcg/Gram Gel Is Nonformulary, We Only Carry Silver Sulfadiazine C XX 05/19/25 00:00 Not Given CLARIFY LISANDRA Non-Formulary Medication 1 applic 04/20/25 09:00 Silver [Silver-Sept] TOPICAL 05/20/25 08:59 DAILY LISANDRA Sodium Bicarbonate 1,300 mg 04/20/25 09:00 04/21/25 09:00 Sodium Bicarbonate Tab 650 Mg Tablet PO 1,300 mg BID LISANDRA Administration Sodium Chloride 10 ml 04/20/25 14:00 04/21/25 05:00 Central Line Flush IV PUSH 10 ml Q8HR LISANDRA Administration Sodium Chloride 10 ml 04/20/25 11:09 Central Line Flush IV PUSH PRN PRN with TPN bag changes Sodium Chloride 20 ml 04/20/25 11:09 Central Line Flush IV PUSH PRN PRN after blood draws Radiology Results: ITS Impressions Head CT 04/19/25 17:49 IMPRESSION: No acute intracranial process. Cervical Spine CT 04/19/25 17:52 IMPRESSION: No acute fracture or traumatic malalignment in the cervical spine. Chest X-Ray 04/19/25 18:03 IMPRESSION: No acute cardiopulmonary process. Hip/Pelvis X-Ray 04/19/25 18:05 IMPRESSION: No definite fracture or hardware related complication, however examination is severely limited by difficulty with positioning. If there is persistent pain or clinical suspicion of injury is high, consider CT of the pelvis for further evaluation. Venous Doppler Study 04/19/25 18:09 IMPRESSION: Right popliteal vein not adequately visualized. Otherwise patent right lower extremity veins. No evidence of deep venous thrombosis. Labs Labs: Laboratory Results - last 24 hr 04/21/25 04/21/25 00:28 04:54 WBC 8.1 RBC 2.80 L Hgb 7.5 L Hct 24.1 L MCV 86.1 MCH 26.8 MCHC 31.1 L RDW 24.4 H Plt Count 232 MPV 9.5 Sodium 145 Potassium 3.2 L Chloride 111 H Carbon Dioxide 19 L Anion Gap 15 H BUN 63 H Creatinine 6.84 H Estim Creat Clear Calc 5 Estimated GFR 6 L Glucose 84 POC Capillary Glucose 102 Calcium 6.7 L Phosphorus 6.2 H Magnesium 1.6 Total Bilirubin 0.6 AST 34 ALT 13 Alkaline Phosphatase 77 Total Protein 5.3 L Albumin 2.7 L
--- NOTE | 2025-04-21 11:27 | P.PNINT_ITS ---
Progress Note: A&P Assessment and Plan (1) Septic shock: Code(s): A41.9 - Sepsis, unspecified organism; R65.21 - Severe sepsis with septic shock Status: Acute Assessment and Plan: Sepsis secondary to UTI and right lower extremity cellulitis. Patient was recently diagnosed with MSSA bacteremia and was discharged on p.o. antibiotics. Unsure of the compliance. Repeat blood cultures have been sent and are pending Check urine culture. Procalcitonin 1.5 Patient is currently on cefepime and vancomycin. In light of renal failure I have changed vancomycin to linezolid Patient has had more than 4 L of fluid I will hold further IV fluids and continue Levophed infusion will discontinue further 25% albumin Despite several attempts to physicians were unable to place central venous catheter. 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 PICC line was placed for better IV access to administer antibiotics and vasopressor (2) Acute renal failure superimposed on stage 5 chronic kidney disease, not on chronic dialysis: Qualifiers: Acute renal failure type: with acute tubular necrosis Qualified Code(s): N17.0 - Acute kidney failure with tubular necrosis; N18.5 - Chronic kidney disease, stage 5 Code(s): N17.9 - Acute kidney failure, unspecified; N18.5 - Chronic kidney disease, stage 5 Status: Acute Assessment and Plan: Acute on chronic renal failure Patient was discharged with creatinine of 4 and now presented with creatinine 9.75. Recent workup has shown patient has severe medical renal disease I will hold further fluids to minimize risk of volume overload patient had refused dialysis in the past and again confirmed decision to the cell efficiency supervisor and to me today She is receiving bicarb for metabolic acidosis potassium replacement ordered discussed with nephrology monitor urine output electrolytes and creatinine replace low calcium (3) Metabolic acidosis: Code(s): E87.20 - Acidosis, unspecified Status: Acute Assessment and Plan: Continue p.o. bicarb (4) UTI (urinary tract infection): Code(s): N39.0 - Urinary tract infection, site not specified Status: Acute Assessment and Plan: See above (5) Cellulitis of right leg: Code(s): L03.115 - Cellulitis of right lower limb Status: Acute Assessment and Plan: See above (6) MSSA bacteremia: Code(s): R78.81 - Bacteremia; B95.61 - Methicillin susceptible Staphylococcus aureus infection as the cause of diseases classified elsewhere Status: Acute Assessment and Plan: See above (7) Ulcer of right leg: Qualifiers: Non-pressure ulcer stage: unspecified non-pressure ulcer stage Qualified Code(s): L97.919 - Non-pressure chronic ulcer of unspecified part of right lower leg with unspecified severity Code(s): L97.919 - Non-pressure chronic ulcer of unspecified part of right lower leg with unspecified severity Status: Chronic Assessment and Plan: Wound Care consult (8) Severe protein-calorie malnutrition: Code(s): E43 - Unspecified severe protein-calorie malnutrition Status: Acute Assessment and Plan: Consult dietitian for evaluation Nutritional supplement supplements Plan DVT prophylaxis -heparin Stress ulcer prophylaxis -subcu heparin Code Status - Full Code after calling multiple times I was able to speak to patient's son Trey who lives in [place]. he told me that he has not been in frequent contact with his mother and has left the family situation due to difficulty dealing with his brother. He states that Nidhi lives with Dc who he believes has behavioral issues including impulsiveness and violent behavior. He agrees that patient has a poor living conditions at home and off only had lets her dogs sleep in bed with her while looking and touching her legs that are infected. He states that he has told his mother multiple times that she needs to go to a [place] but patient has refused and he states that he can take this anymore and does not want his own family to be affected by his mother and brother. He is willing to be part in decision making when it comes to disposition but he states that he is not going to take her to his home. it is clear the patient has poor conditions at home and is malnourished with lack of proper care considering her physical disability frequent infections and now worsening kidney failure. I spoke to Daria earlier This morning and she was adamant that she would not go to any facility including [place] [facility] [place] or 1 dialysis. I discussed option of hospice And she did not fully understand the implications of it. I have discussed this with primary care pediatrician we are going to try to get hold of Dc who is patient's son who lives with her and obtain further information. Total Critical Care Time - 30 minutes Due to a high probability of clinically significant, life threatening deterioration, the patient required my highest level of preparedness to intervene emergently and I personally spent this critical care time directly and personally managing the patient. This critical care time included obtaining a history; examining the patient; pulse oximetry; ordering and review of studies; arranging urgent treatment with development of a management plan; evaluation of patient's response to treatment; frequent reassessment; and discussions with other providers. It was exclusive of separately billable procedures and treating other patients and teaching time. Please see Assessment and Plan section and the rest of the note for further information on patient assessment and treatment Subjective Date/time seen: 04/21/25 patient is much more awake and alert today. She is oriented x3 although she would not answer the name of the president as she states that she does not care about any of those things. She was able to tell me she lives at home and Bucio will with her son Dc. Is she states she feels fine and denies any complaints. She states that she fell out of her wheelchair and that is why she is in the hospital. she told me that she eats adequately at home and her son helps take care of her. She states she has a wheelchair and she uses a board to get out of hospital bed to the portable toilet that she has alongside the bed. She again told me that she does not want to when to any facility or [place] [facility] [place]. She also states that she is aware that she was told that she may need dialysis on her last admission and has kidney issues and she refused that to the kidney doctor. She again were is adamant today that she does not want dialysis at any cost even if that means she is going to without it. She continues to be on Levophed and is at a low rate of 2 mcg. Her urine output is on the lower side but has improved since coming to the hospital. Sinus rhythm on the monitor. Saturation adequate on room air. She has passed her swallow evaluation and is on modified pureed diet. Review of Systems Review of Systems: All systems reviewed & are unremarkable except as noted in HPI and below ( HPI) Exam Narrative: General: Old frail cachectic female laying in bed on her side Lungs/Chest: Bibasilar crackles extensive scoliosis of spine Cardiac: RRR. Normal S1 S2. No murmurs Abdomen: Decrease bowel sounds. Cachectic. Soft. NT. ND. 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, right limb has extensive edema, several wounds covered under dressing, area of redness, blisters with fluid, right knee is also contracture in flexion position : Velez in place Neurologic: Patient is awake alert and oriented x3, she answers questions intermittently, PERRL MSK: Extensive scoliosis of spine and her neck is contracture towards the right side Objective Data Vital Signs Vital Signs: Vital Signs - 24 hr 04/20/25 12:00 04/20/25 12:00 04/20/25 12:00 Temperature Pulse Rate 65 59 L Respiratory Rate Blood Pressure 141/65 H Pulse Oximetry Oxygen Delivery Room Air 04/20/25 12:00 04/20/25 12:40 04/20/25 12:43 Temperature 36.8 C Pulse Rate 67 71 69 Respiratory Rate 16 Blood Pressure 141/65 H 149/83 H 123/77 Pulse Oximetry 94 Oxygen Delivery 04/20/25 13:09 04/20/25 13:46 04/20/25 14:00 Temperature Pulse Rate 65 63 65 Respiratory Rate Blood Pressure 154/62 H 95/44 L 93/60 L Pulse Oximetry Oxygen Delivery 04/20/25 14:00 04/20/25 14:00 04/20/25 14:17 Temperature 36.6 C Pulse Rate 61 61 62 Respiratory Rate 16 Blood Pressure 95/44 L 86/38 L Pulse Oximetry 94 Oxygen Delivery 04/20/25 15:15 04/20/25 16:00 04/20/25 16:00 Temperature Pulse Rate 65 66 Respiratory Rate Blood Pressure 97/44 L Pulse Oximetry Oxygen Delivery Room Air 04/20/25 16:00 04/20/25 16:00 04/20/25 18:00 Temperature 36.4 C L Pulse Rate 64 63 62 Respiratory Rate 13 Blood Pressure 104/59 L 104/59 L Pulse Oximetry 89 L Oxygen Delivery 04/20/25 18:00 04/20/25 18:00 04/20/25 19:15 Temperature 36.3 C L Pulse Rate 67 72 66 Respiratory Rate 18 Blood Pressure 106/64 107/59 L 109/58 L Pulse Oximetry 94 Oxygen Delivery 04/20/25 19:30 04/20/25 20:00 04/20/25 20:00 Temperature 36.3 C L Pulse Rate 75 63 66 Respiratory Rate 18 Blood Pressure 109/58 L 104/58 L Pulse Oximetry 96 Oxygen Delivery 04/20/25 20:00 04/20/25 20:15 04/20/25 20:30 Temperature Pulse Rate 68 73 Respiratory Rate Blood Pressure 119/60 114/65 Pulse Oximetry Oxygen Delivery Room Air 04/20/25 21:15 04/20/25 21:30 04/20/25 21:45 Temperature Pulse Rate 77 72 79 Respiratory Rate Blood Pressure 108/53 L 85/63 L 115/57 L Pulse Oximetry Oxygen Delivery 04/20/25 22:00 04/20/25 22:00 04/20/25 22:45 Temperature 35.8 C L Pulse Rate 62 62 63 Respiratory Rate 18 Blood Pressure 120/60 105/56 L Pulse Oximetry 97 Oxygen Delivery 04/20/25 23:00 04/20/25 23:15 04/21/25 00:00 Temperature Pulse Rate 60 62 64 Respiratory Rate Blood Pressure 106/57 L 116/58 L 106/63 Pulse Oximetry Oxygen Delivery 04/21/25 00:00 04/21/25 00:00 04/21/25 00:00 Temperature 35.8 C L Pulse Rate 64 64 Respiratory Rate 20 Blood Pressure 106/63 Pulse Oximetry 98 Oxygen Delivery Room Air 04/21/25 01:00 04/21/25 01:15 04/21/25 01:30 Temperature Pulse Rate 63 63 61 Respiratory Rate Blood Pressure 111/58 L 96/49 L 93/53 L Pulse Oximetry Oxygen Delivery 04/21/25 02:00 04/21/25 02:00 04/21/25 02:00 Temperature 35.8 C L Pulse Rate 62 62 62 Respiratory Rate 15 Blood Pressure 95/49 L 95/49 L Pulse Oximetry 98 Oxygen Delivery 04/21/25 02:15 04/21/25 03:45 04/21/25 04:00 Temperature Pulse Rate 65 62 87 Respiratory Rate Blood Pressure 103/55 L 110/55 L Pulse Oximetry Oxygen Delivery 04/21/25 04:00 04/21/25 04:00 04/21/25 04:00 Temperature 35.7 C L Pulse Rate 61 61 Respiratory Rate 15 Blood Pressure 104/52 L 104/52 L Pulse Oximetry 99 Oxygen Delivery Room Air 04/21/25 05:00 04/21/25 05:15 04/21/25 05:45 Temperature 35.4 C L Pulse Rate 61 62 Respiratory Rate Blood Pressure 103/50 L 122/55 L Pulse Oximetry Oxygen Delivery 04/21/25 06:00 04/21/25 06:00 04/21/25 06:00 Temperature 35.4 C L 35.4 C L Pulse Rate 59 L 59 L Respiratory Rate 16 Blood Pressure 96/52 L Pulse Oximetry 98 Oxygen Delivery 04/21/25 06:15 04/21/25 06:15 04/21/25 06:30 Temperature 35.4 C L 35.4 C L Pulse Rate 61 Respiratory Rate Blood Pressure 96/52 L Pulse Oximetry Oxygen Delivery 04/21/25 06:45 04/21/25 07:23 04/21/25 07:53 Temperature 35.5 C L 35.7 C L 35.9 C L Pulse Rate Respiratory Rate Blood Pressure Pulse Oximetry Oxygen Delivery 04/21/25 08:00 04/21/25 08:00 04/21/25 08:00 Temperature Pulse Rate 62 74 Respiratory Rate Blood Pressure 96/49 L Pulse Oximetry Oxygen Delivery Room Air 04/21/25 08:00 04/21/25 08:23 04/21/25 10:00 Temperature 36.1 C L 36.1 C L Pulse Rate 72 70 Respiratory Rate 17 Blood Pressure 96/54 L Pulse Oximetry 98 Oxygen Delivery 04/21/25 10:00 Temperature 35.9 C L Pulse Rate 70 Respiratory Rate 21 H Blood Pressure 102/60 Pulse Oximetry 99 Oxygen Delivery Intake/Output Intake/Output: Intake & Output 04/18/25 04/19/25 04/20/25 04/21/25 23:59 23:59 23:59 23:59 Intake Total 3153 3028.1 285.5 Output Total 150 300 Balance 3153 2878.1 -14.5 Meds/Results Medications: Active Medications Generic Name Dose Route Start Last Admin Trade Name Freq PRN Reason Stop Dose Admin Acetaminophen 650 mg 04/19/25 22:52 Acetaminophen 325 Mg Tablet PO Q4H PRN Mild Pain (1-3) Or Fever Dextrose 12.5 gm 04/20/25 01:24 Dextrose 50% 25 Gm/50 Ml Syringe IV PUSH PRN PRN Hypoglycemia Protocol Epoetin Sav-epbx 10,000 units 04/20/25 12:45 04/20/25 15:05 Epoetin Sav-Epbx 10,000 Units/Ml Vial SUB-Q 10,000 units TUTHSA@09 LISANDRA Administration Glucagon 1 mg 04/20/25 01:24 Glucagon For Inj 1 Mg Vial IM PRN PRN Hypoglycemia Protocol Glucose 15 gm 04/20/25 01:24 Glucose Oral Gel 15 Gm Of Glucse In 37.5 Gm Tube PO PRN PRN Hypoglycemia Protocol Heparin Sodium (Porcine) 5,000 units 04/20/25 09:00 04/21/25 09:11 Heparin Sodium 5,000 Units/Ml Vial SUB-Q 5,000 units Q12HR LISANDRA Administration Cefepime HCl 1 gm in 50 mls @ 100 mls/hr 04/20/25 22:00 04/20/25 21:37 Maxipime 1 Gm/Ns 50 Ml IVPB Infused Q24H LISANDRA Infusion Dextrose 1,000 mls @ 100 mls/hr 04/20/25 01:24 Dextrose 5% 1,000 Ml IVPB PRN PRN Hypoglycemia Protocol Linezolid 600 mg in 300 mls @ 300 mls/hr 04/20/25 09:45 04/21/25 09:07 Zyvox IVPB 300 mls/hr Q12HR LISANDRA Administration Norepinephrine Bitartrate 8 mg in 250 mls @ 3.75 mls/hr 04/20/25 12:05 04/21/25 08:00 Levophed 8 Mg/D5w 250 Ml IV CONT 2 mcg/min .Q24H LISANDRA 3.75 mls/hr Titration Protocol 2 MCG/MIN Midodrine 10 mg 04/21/25 09:00 04/21/25 09:00 Midodrine Hcl 10 Mg Tablet PO 10 mg TID LISANDRA Administration Miscellaneous Information 1 each 04/19/25 00:01 04/20/25 18:24 Silver [Silver-Sept] 200 Mcg/Gram Gel Is Nonformulary, We Only Carry Silver Sulfadiazine C XX 05/19/25 00:00 Not Given CLARIFY LISANDRA Non-Formulary Medication 1 applic 04/20/25 09:00 Silver [Silver-Sept] TOPICAL 05/20/25 08:59 DAILY LISANDRA Sodium Bicarbonate 1,300 mg 04/20/25 09:00 04/21/25 09:00 Sodium Bicarbonate Tab 650 Mg Tablet PO 1,300 mg BID LISANDRA Administration Sodium Chloride 10 ml 04/20/25 14:00 04/21/25 05:00 Central Line Flush IV PUSH 10 ml Q8HR LISANDRA Administration Sodium Chloride 10 ml 04/20/25 11:09 Central Line Flush IV PUSH PRN PRN with TPN bag changes Sodium Chloride 20 ml 04/20/25 11:09 Central Line Flush IV PUSH PRN PRN after blood draws Radiology Results: ITS Impressions Head CT 04/19/25 17:49 IMPRESSION: No acute intracranial process. Cervical Spine CT 04/19/25 17:52 IMPRESSION: No acute fracture or traumatic malalignment in the cervical spine. Chest X-Ray 04/19/25 18:03 IMPRESSION: No acute cardiopulmonary process. Hip/Pelvis X-Ray 04/19/25 18:05 IMPRESSION: No definite fracture or hardware related complication, however examination is severely limited by difficulty with positioning. If there is persistent pain or clinical suspicion of injury is high, consider CT of the pelvis for further evaluation. Venous Doppler Study 04/19/25 18:09 IMPRESSION: Right popliteal vein not adequately visualized. Otherwise patent right lower extremity veins. No evidence of deep venous thrombosis. Labs Labs: Laboratory Results - last 24 hr 04/21/25 04/21/25 00:28 04:54 WBC 8.1 RBC 2.80 L Hgb 7.5 L Hct 24.1 L MCV 86.1 MCH 26.8 MCHC 31.1 L RDW 24.4 H Plt Count 232 MPV 9.5 Sodium 145 Potassium 3.2 L Chloride 111 H Carbon Dioxide 19 L Anion Gap 15 H BUN 63 H Creatinine 6.84 H Estim Creat Clear Calc 5 Estimated GFR 6 L Glucose 84 POC Capillary Glucose 102 Calcium 6.7 L Phosphorus 6.2 H Magnesium 1.6 Total Bilirubin 0.6 AST 34 ALT 13 Alkaline Phosphatase 77 Total Protein 5.3 L Albumin 2.7 L Quality VTE Prophylaxis VTE prophylaxis: pharmacologic ordered
--- NOTE | 2025-04-21 14:10 | P.PNIM_ITS ---
Progress Note: A&P Assessment and Plan (1) Septic shock: Code(s): A41.9 - Sepsis, unspecified organism; R65.21 - Severe sepsis with septic shock Status: Acute (2) Acute renal failure superimposed on stage 5 chronic kidney disease, not on chronic dialysis: Qualifiers: Acute renal failure type: with acute tubular necrosis Qualified Code(s): N17.0 - Acute kidney failure with tubular necrosis; N18.5 - Chronic kidney disease, stage 5 Code(s): N17.9 - Acute kidney failure, unspecified; N18.5 - Chronic kidney disease, stage 5 Status: Acute (3) Acute hyperkalemia: Code(s): E87.5 - Hyperkalemia Status: Acute (4) MSSA bacteremia: Code(s): R78.81 - Bacteremia; B95.61 - Methicillin susceptible Staphylococcus aureus infection as the cause of diseases classified elsewhere Status: Acute (5) Hypothermia due to non-environmental cause: Code(s): R68.0 - Hypothermia, not associated with low environmental temperature Status: Acute (6) Cellulitis of lower leg: Code(s): L03.119 - Cellulitis of unspecified part of limb Status: Acute (7) Metabolic acidosis: Code(s): E87.20 - Acidosis, unspecified Status: Acute (8) Severe protein-calorie malnutrition: Code(s): E43 - Unspecified severe protein-calorie malnutrition Status: Acute Plan Patient presents with shock due to sepsis. Sepsis criteria met with profound hypothermia, tachypnea, hypotension despite adequate fluid resuscitation and acute on chronic kidney injury with metabolic encephalopathy. Source of sepsis could be due to cellulitis verses recurrent MSSA bacteremia. Is unclear if the patient was continuing with her antibiotic therapy with linezolid at home or not. Blood cultures were obtained in the ER. The patient received total of 3.5 L in fluid bolus which was much greater than 30 mL/kilos volume fluid resuscitation in remained hypotensive. Patient was subsequently started on peripheral pressor therapy with Gerson-Synephrine as we were unable to place a central line. Blood cultures were obtained and are pending. Will continue IV fluid hydration and will wean pressors as tolerated. Will continue pressors for goal maps of 65-70. Will repeat CBC with differential in a.m.. Will continue cefepime and vancomycin. Library Services Coordinator has been consulted. Patient does have acute kidney injury on chronic kidney disease with associated hyperkalemia. The patient received insulin, dextrose, calcium gluconate, Lokelma and a nebulizer treatment in the ER. Patient's serum bicarb is acutely decompensated from baseline. Venous blood gas was obtained after my evaluation which demonstrated severe metabolic acidosis with compensatory respiratory alkalosis. You acute metabolic acidosis is new patient had prior chronic metabolic acidosis that was compensated during last hospitalization. Patient's was given a amp of sodium bicarb and started on bicarb drip. Will repeat electrolyte panel including phosphorus and magnesium in a.m.. Will consult Nephrology. Patient has severe protein calorie malnutrition and is cachectic. She benefit from nutritional supplementation when clinically stable. Patient arrived to the ER disheveled with multiple wounds in bruises. Poor living conditions reported by EMS. Care coordination consult has been placed. patient came to the ER and EMS reported poor living condition and patient with wound and bruising with animal hair per nursing, staff, patient was sent to ER after she fell from her wheel chair unfortunately patient in unable to provibe any ROS or history, today patient is more awake, stats has no complaints, patient is found to have CKD and needs of HD however patient has refused it, again today patient was seen by her furniture assembly supervisor and patient is refusing dialysis, upon arrival her BUN and Scr was 77/9.75 and patient been hydrated with IVF and now it is 63/6.84, upon arrival patient was also in metabolic acidosis and patient is treated with bicarb and its metabolic CO2 is improving. patient is seen by furniture assembly supervisor and market development executive and appreciate. Subjective Date/time seen: 04/21/25 14:10 Interval history: Chief Complaint: Fall from wheelchair H&P-Narrative: 69-year-old female with a past medical history of chronic anemia, lymphedema of the right lower extremity, prior left [id number] amputation, essential hypertension, depression and anxiety and chronic kidney disease stage 5, and recent hospitalization with severe anemia, MSSA bacteremia and ulcer with cellulitis of the right knee who presented to the ER via EMS after having a fall out of her wheelchair. Source of information is from the ER records and past medical records patient is only alert oriented to her name at the time of my evaluation. Per ER records the patient's son called EMS after patient fell out of her wheelchair. She was reportedly not on the floor for very long. She was alert orient x2 per EMS. The patient had numerous scabs on her lower extremity which were covered in animal hair. Patient reportedly was found to have roaches on her at the home. Patient is diabetic and does not check her blood sugars at home. In the ER the patient was found to be profoundly hypothermic with an initial temperature of 92.2?. Her initial blood pressures were normal but quickly downtrended to the 80s and 90s systolic. She received 2 L of normal saline and 1.5 L of LR in remained hypotensive. Her blood pressures shortly after arrival to the ICU where his low as 69/45 after Gerson-Synephrine had already been started. I evaluated the patient down in the ER at which time the ER physician was trying to place a central line. Due to the patient's contractures and anatomy the only viable option for central line placement was the left IJ and after numerous attempts efforts were ceased. The patient was started on Gerson-Synephrine peripherally. White count was normal and hemoglobin was slightly increased from prior value of 9. Patient had mild hyperkalemia and acutely worsening creatinine from baseline of 4.5 up to 9. Serum bicarb was low at 8. Patient was initially started on Ancef for cellulitis but was switched to broad- spectrum antibiotic coverage with cefepime and vancomycin. Patient did have mildly elevated CK level in the ER. Patient had been admitted to the hospital 04/04/2025 through 04/12/2025 and was noted to have profound anemia with hemoglobin of 3.4. She received 3 units of packed red blood cells with improvement in her hemoglobin at that time her stool occult blood was negative. She was also found to have MSSA bacteremia with echocardiogram negative for evidence of vegetation with repeat blood cultures that were negative. Patient was initially treated with Rocephin and vancomycin but was switched to linezolid at discharge. It is unclear if the patient has been compliant with linezolid after discharge. She was supposed to stay on linezolid until 04/24/2025. Patient was evaluated by Nephrology during prior visit and was found to have chronic kidney disease with prior baseline less than 1 in 2022 with value on discharge of 4. She was noted to have an DOT positive indeterminate double-stranded DNA antibody, and ANCA negative, SPEP with poorly defined band possible M spike but normal urine protein electrophoresis. She had nephrotic range proteinuria and normal kappa lambda ratio. Her and complements were negative. Patient had previously refused hemodialysis. patient came to the ER and EMS reported poor living condition and patient with wound and bruising with animal hair per nursing, staff, patient was sent to ER after she fell from her wheel chair unfortunately patient in unable to provibe any ROS or history, today patient is more awake, stats has no complaints, patient is found to have CKD and needs of HD however patient has refused it, again today patient was seen by her furniture assembly supervisor and patient is refusing dialysis, upon arrival her BUN and Scr was 77/9.75 and patient been hydrated with IVF and now it is 63/6.84, upon arrival patient was also in metabolic acidosis and patient is treated with bicarb and its metabolic CO2 is improving. patient is seen by furniture assembly supervisor and market development executive and appreciate. Review of Systems Review of Systems: ROS unobtainable: Yes unobtainable due to medical condition and unobtainable due to mental status Exam Narrative: unable to fully examine as patient is contracte upper and lower extremities with bruising and sores Patient is comfortable, NAD HEENT: eyes are clear and none icteric Lower extremities: edema bruised and sores SKIN: nonjaundiced, bruised and sores Neuro: grossly intact. Objective Data Vital Signs Vital Signs: Vital Signs - 24 hr 04/20/25 14:17 04/20/25 15:15 04/20/25 16:00 Temperature Pulse Rate 62 65 Respiratory Rate Blood Pressure 86/38 L 97/44 L Pulse Oximetry Oxygen Delivery Room Air 04/20/25 16:00 04/20/25 16:00 04/20/25 16:00 Temperature 36.4 C L Pulse Rate 66 64 63 Respiratory Rate 13 Blood Pressure 104/59 L 104/59 L Pulse Oximetry 89 L Oxygen Delivery 04/20/25 18:00 04/20/25 18:00 04/20/25 18:00 Temperature 36.3 C L Pulse Rate 62 67 72 Respiratory Rate 18 Blood Pressure 106/64 107/59 L Pulse Oximetry 94 Oxygen Delivery 04/20/25 19:15 04/20/25 19:30 04/20/25 20:00 Temperature 36.3 C L Pulse Rate 66 75 63 Respiratory Rate 18 Blood Pressure 109/58 L 109/58 L 104/58 L Pulse Oximetry 96 Oxygen Delivery 04/20/25 20:00 04/20/25 20:00 04/20/25 20:15 Temperature Pulse Rate 66 68 Respiratory Rate Blood Pressure 119/60 Pulse Oximetry Oxygen Delivery Room Air 04/20/25 20:30 04/20/25 21:15 04/20/25 21:30 Temperature Pulse Rate 73 77 72 Respiratory Rate Blood Pressure 114/65 108/53 L 85/63 L Pulse Oximetry Oxygen Delivery 04/20/25 21:45 04/20/25 22:00 04/20/25 22:00 Temperature 35.8 C L Pulse Rate 79 62 62 Respiratory Rate 18 Blood Pressure 115/57 L 120/60 Pulse Oximetry 97 Oxygen Delivery 04/20/25 22:45 04/20/25 23:00 04/20/25 23:15 Temperature Pulse Rate 63 60 62 Respiratory Rate Blood Pressure 105/56 L 106/57 L 116/58 L Pulse Oximetry Oxygen Delivery 04/21/25 00:00 04/21/25 00:00 04/21/25 00:00 Temperature 35.8 C L Pulse Rate 64 64 64 Respiratory Rate 20 Blood Pressure 106/63 106/63 Pulse Oximetry 98 Oxygen Delivery 04/21/25 00:00 04/21/25 01:00 04/21/25 01:15 Temperature Pulse Rate 63 63 Respiratory Rate Blood Pressure 111/58 L 96/49 L Pulse Oximetry Oxygen Delivery Room Air 04/21/25 01:30 04/21/25 02:00 04/21/25 02:00 Temperature 35.8 C L Pulse Rate 61 62 62 Respiratory Rate 15 Blood Pressure 93/53 L 95/49 L Pulse Oximetry 98 Oxygen Delivery 04/21/25 02:00 04/21/25 02:15 04/21/25 03:45 Temperature Pulse Rate 62 65 62 Respiratory Rate Blood Pressure 95/49 L 103/55 L 110/55 L Pulse Oximetry Oxygen Delivery 04/21/25 04:00 04/21/25 04:00 04/21/25 04:00 Temperature 35.7 C L Pulse Rate 87 61 61 Respiratory Rate 15 Blood Pressure 104/52 L 104/52 L Pulse Oximetry 99 Oxygen Delivery 04/21/25 04:00 04/21/25 05:00 04/21/25 05:15 Temperature Pulse Rate 61 62 Respiratory Rate Blood Pressure 103/50 L 122/55 L Pulse Oximetry Oxygen Delivery Room Air 04/21/25 05:45 04/21/25 06:00 04/21/25 06:00 Temperature 35.4 C L 35.4 C L 35.4 C L Pulse Rate 59 L Respiratory Rate 16 Blood Pressure 96/52 L Pulse Oximetry 98 Oxygen Delivery 04/21/25 06:00 04/21/25 06:15 04/21/25 06:15 Temperature 35.4 C L Pulse Rate 59 L 61 Respiratory Rate Blood Pressure 96/52 L Pulse Oximetry Oxygen Delivery 04/21/25 06:30 04/21/25 06:45 04/21/25 07:23 Temperature 35.4 C L 35.5 C L 35.7 C L Pulse Rate Respiratory Rate Blood Pressure Pulse Oximetry Oxygen Delivery 04/21/25 07:53 04/21/25 08:00 04/21/25 08:00 Temperature 35.9 C L Pulse Rate 62 Respiratory Rate Blood Pressure 96/49 L Pulse Oximetry Oxygen Delivery Room Air 04/21/25 08:00 04/21/25 08:00 04/21/25 08:23 Temperature 36.1 C L 36.1 C L Pulse Rate 74 72 Respiratory Rate 17 Blood Pressure 96/54 L Pulse Oximetry 98 Oxygen Delivery 04/21/25 10:00 04/21/25 10:00 04/21/25 10:00 Temperature 35.9 C L Pulse Rate 70 70 60 Respiratory Rate 21 H Blood Pressure 102/60 102/73 Pulse Oximetry 99 Oxygen Delivery 04/21/25 11:37 04/21/25 11:57 04/21/25 12:00 Temperature Pulse Rate 68 65 Respiratory Rate Blood Pressure 112/67 99/72 L Pulse Oximetry Oxygen Delivery Room Air 04/21/25 12:00 04/21/25 12:00 04/21/25 12:20 Temperature 35.7 C L Pulse Rate 64 64 69 Respiratory Rate 21 H Blood Pressure 99/72 L 77/42 L Pulse Oximetry 99 Oxygen Delivery Intake/Output Intake/Output: Intake & Output 04/18/25 04/19/25 04/20/25 04/21/25 23:59 23:59 23:59 23:59 Intake Total 3153 3028.1 699.7 Output Total 150 300 Balance 3153 2878.1 399.7 Meds/Results Medications: Active Medications Generic Name Dose Route Start Last Admin Trade Name Dilma PRN Reason Stop Dose Admin Acetaminophen 650 mg 04/19/25 22:52 Acetaminophen 325 Mg Tablet PO Q4H PRN Mild Pain (1-3) Or Fever Dextrose 12.5 gm 04/20/25 01:24 Dextrose 50% 25 Gm/50 Ml Syringe IV PUSH PRN PRN Hypoglycemia Protocol Epoetin Sav-epbx 10,000 units 04/20/25 12:45 04/20/25 15:05 Epoetin Sav-Epbx 10,000 Units/Ml Vial SUB-Q 10,000 units TUTHSA@09 LISANDRA Administration Glucagon 1 mg 04/20/25 01:24 Glucagon For Inj 1 Mg Vial IM PRN PRN Hypoglycemia Protocol Glucose 15 gm 04/20/25 01:24 Glucose Oral Gel 15 Gm Of Glucse In 37.5 Gm Tube PO PRN PRN Hypoglycemia Protocol Heparin Sodium (Porcine) 5,000 units 04/20/25 09:00 04/21/25 09:11 Heparin Sodium 5,000 Units/Ml Vial SUB-Q 5,000 units Q12HR LISANDRA Administration Cefepime HCl 1 gm in 50 mls @ 100 mls/hr 04/20/25 22:00 04/20/25 21:37 Maxipime 1 Gm/Ns 50 Ml IVPB Infused Q24H LISANDRA Infusion Dextrose 1,000 mls @ 100 mls/hr 04/20/25 01:24 Dextrose 5% 1,000 Ml IVPB PRN PRN Hypoglycemia Protocol Linezolid 600 mg in 300 mls @ 300 mls/hr 04/20/25 09:45 04/21/25 12:10 Zyvox IVPB Infused Q12HR LISANDRA Infusion Norepinephrine Bitartrate 8 mg in 250 mls @ 1.875 mls/hr 04/20/25 12:05 04/21/25 12:20 Levophed 8 Mg/D5w 250 Ml IV CONT 1 mcg/min .Q24H LISANDRA 1.88 mls/hr Titration Protocol 1 MCG/MIN Midodrine 10 mg 04/21/25 09:00 04/21/25 12:19 Midodrine Hcl 10 Mg Tablet PO 10 mg TID LISANDRA Administration Miscellaneous Information 1 each 04/19/25 00:01 04/20/25 18:24 Silver [Silver-Sept] 200 Mcg/Gram Gel Is Nonformulary, We Only Carry Silver Sulfadiazine C XX 05/19/25 00:00 Not Given CLARIFY LISANDRA Non-Formulary Medication 1 applic 04/20/25 09:00 Silver [Silver-Sept] TOPICAL 05/20/25 08:59 DAILY LISANDRA Sodium Bicarbonate 1,300 mg 04/20/25 09:00 04/21/25 09:00 Sodium Bicarbonate Tab 650 Mg Tablet PO 1,300 mg BID LISANDRA Administration Sodium Chloride 10 ml 04/20/25 14:00 04/21/25 05:00 Central Line Flush IV PUSH 10 ml Q8HR LISANDRA Administration Sodium Chloride 10 ml 04/20/25 11:09 Central Line Flush IV PUSH PRN PRN with TPN bag changes Sodium Chloride 20 ml 04/20/25 11:09 Central Line Flush IV PUSH PRN PRN after blood draws Radiology Results: ITS Impressions Head CT 04/19/25 17:49 IMPRESSION: No acute intracranial process. Cervical Spine CT 04/19/25 17:52 IMPRESSION: No acute fracture or traumatic malalignment in the cervical spine. Chest X-Ray 04/19/25 18:03 IMPRESSION: No acute cardiopulmonary process. Hip/Pelvis X-Ray 04/19/25 18:05 IMPRESSION: No definite fracture or hardware related complication, however examination is severely limited by difficulty with positioning. If there is persistent pain or clinical suspicion of injury is high, consider CT of the pelvis for further evaluation. Venous Doppler Study 04/19/25 18:09 IMPRESSION: Right popliteal vein not adequately visualized. Otherwise patent right lower extremity veins. No evidence of deep venous thrombosis. Labs Labs: Laboratory Results - last 24 hr 04/21/25 04/21/25 00:28 04:54 WBC 8.1 RBC 2.80 L Hgb 7.5 L Hct 24.1 L MCV 86.1 MCH 26.8 MCHC 31.1 L RDW 24.4 H Plt Count 232 MPV 9.5 Sodium 145 Potassium 3.2 L Chloride 111 H Carbon Dioxide 19 L Anion Gap 15 H BUN 63 H Creatinine 6.84 H Estim Creat Clear Calc 5 Estimated GFR 6 L Glucose 84 POC Capillary Glucose 102 Calcium 6.7 L Phosphorus 6.2 H Magnesium 1.6 Total Bilirubin 0.6 AST 34 ALT 13 Alkaline Phosphatase 77 Total Protein 5.3 L Albumin 2.7 L Quality VTE Prophylaxis VTE prophylaxis: pharmacologic ordered
[2025-04-21] MEDS: CEFEPIME 1 GM/NS 50 ML 1 GM/50 ML BAG IVPB (21:19)
[2025-04-21 23:58] LABS: Glucose Point of Care 69 mg/dl (65-105)
[2025-04-21] MEDS: DEXTROSE 50% 25 GM/50 ML SYRINGE IV PUSH (23:58)
[2025-04-22] VITALS (31 sets, daily range): BP systolic 83–150; BP diastolic 41–64; PULSE 53–70; RESP 12–123; TEMP 35.8–37.8; O2SAT 97–100; BMI 16.0
[2025-04-22 00:13] LABS: Glucose Point of Care 160 mg/dl (65-105)
[2025-04-22 00:42] LABS: Glucose Point of Care 96 mg/dl (65-105)
[2025-04-22 04:25] LABS: Hematocrit 23.8 % (37.0-47.0); Hemoglobin 7.2 g/dL (12.0-15.0); Mean Corpuscular HGB Conc 30.3 g/dl (32-36); Mean Corpuscular Volume 85.9 fl (80-100); Mean Platelet Volume 9.5 fl (7.4-10.4); Platelet Count Result 205 k/mm3 (150-375); Red Blood Count 2.77 M/mm3 (4.2-5.4); Red Cell Distribution Width 24.7 % (11.5-14.5); White Blood Count 6.5 K/mm3 (4.5-10.0)
[2025-04-22 05:11] LABS: Alanine Aminotransferase 11 U/L (6-35); Albumin Level 2.4 g/dL (3.5-5.1); Alkaline Phosphatase 86 U/L (38-126); Anion Gap 12 mmol/L (4-12); Aspartate Amino Transferase 29 U/L (14-36); Bilirubin,Total 0.7 mg/dL (0.2-1.3); Blood Urea Nitrogen 63 mg/dL (7-17); Calcium 7.2 mg/dL (8.4-10.2); Carbon Dioxide 19 mmol/L (22-30); Chloride 111 mmol/L (98-107); Estimated CRCL calculation 5 ml/min; Estimated Glomerular Filt Rate 6; Glucose 72 mg/dL (65-110); Magnesium 1.5 mg/dL (1.6-2.3); Potassium 3.7 mmol/L (3.4-5.0); Sodium 142 mmol/L (137-145)
[2025-04-22] MEDS: DEXTROSE 50% 25 GM/50 ML SYRINGE IV PUSH (05:34)
[2025-04-22 05:41] LABS: Glucose Point of Care 69 mg/dl (65-105)
[2025-04-22 05:46] LABS: Glucose Point of Care 202 mg/dl (65-105)
[2025-04-22 06:30] LABS: Glucose Point of Care 104 mg/dl (65-105)
[2025-04-22] MEDS: CENTRAL LINE FLUSH 10 ML IV PUSH ×3 (06:32→21:00)
[2025-04-22] MEDS: SODIUM BICARBONATE 8.4% 150 MEQ in DEXTROSE 5% 1,000 ML 950 ML 50 MEQ IV CONT (06:33)
[2025-04-22] MEDS: MAGNESIUM SULF 2 GM/WATER 50ML 2 GM/50 ML BAG IVPB (08:12)
[2025-04-22] MEDS: CALCIUM GLUC 2,000 MG/NS 100ML 2,000 MG/100 ML BAG 100 MG IVPB (08:13)
--- NOTE | 2025-04-22 08:25 | P.PNINT_ITS ---
Progress Note: A&P Assessment and Plan (1) Septic shock: Code(s): A41.9 - Sepsis, unspecified organism; R65.21 - Severe sepsis with septic shock Status: Acute Assessment and Plan: Sepsis secondary to UTI and right lower extremity cellulitis. Patient was recently diagnosed with MSSA bacteremia and was discharged on p.o. antibiotics. Unsure of the compliance. Repeat blood cultures have been sent and are negative till now Procalcitonin 1.5 Patient is currently on cefepime and linezolid Patient has had more than 4 L of fluid I will hold further IV fluids Off Levophed infusion now Off 25% albumin at that time of admission, despite several attempts to physicians were unable to place central venous catheter. 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 PICC line was placed for better IV access to administer antibiotics and vasopressor (2) Acute renal failure superimposed on stage 5 chronic kidney disease, not on chronic dialysis: Qualifiers: Acute renal failure type: with acute tubular necrosis Qualified Code(s): N17.0 - Acute kidney failure with tubular necrosis; N18.5 - Chronic kidney disease, stage 5 Code(s): N17.9 - Acute kidney failure, unspecified; N18.5 - Chronic kidney disease, stage 5 Status: Acute Assessment and Plan: Acute on chronic renal failure Patient was discharged with creatinine of 4 and now presented with creatinine 9.75. Recent workup has shown patient has severe medical renal disease further fluids were held to minimize risk of volume overload patient had refused dialysis in the past and again confirmed decision to the catheter builder and to me yesterday but today she states she is okay with dialysis when I asked her details about it she could not provide me any She is receiving bicarb for metabolic acidosis calcium and magnesium replacement ordered I will discuss with with nephrology monitor urine output electrolytes and creatinine (3) Metabolic acidosis: Code(s): E87.20 - Acidosis, unspecified Status: Acute Assessment and Plan: Continue p.o. bicarb (4) UTI (urinary tract infection): Code(s): N39.0 - Urinary tract infection, site not specified Status: Acute Assessment and Plan: See above (5) Cellulitis of right leg: Code(s): L03.115 - Cellulitis of right lower limb Status: Acute Assessment and Plan: See above (6) MSSA bacteremia: Code(s): R78.81 - Bacteremia; B95.61 - Methicillin susceptible Staphylococcus aureus infection as the cause of diseases classified elsewhere Status: Acute Assessment and Plan: See above (7) Ulcer of right leg: Qualifiers: Non-pressure ulcer stage: unspecified non-pressure ulcer stage Qualified Code(s): L97.919 - Non-pressure chronic ulcer of unspecified part of right lower leg with unspecified severity Code(s): L97.919 - Non-pressure chronic ulcer of unspecified part of right lower leg with unspecified severity Status: Chronic Assessment and Plan: Wound Care consult (8) Severe protein-calorie malnutrition: Code(s): E43 - Unspecified severe protein-calorie malnutrition Status: Acute Assessment and Plan: Patient's p.o. intake has not been adequate. she eats only 10-20% of her plate. She had low blood sugar this morning. I have started her on D5 with bicarb at 50 to prevent hypoglycemia. I was in the room when she was eating her breakfast and she only ate approximately 20% and states that she is full and does not want any more. I have consulted dietitian for evaluation and will add supplements wean off dextrose IV fluid Plan DVT prophylaxis -heparin Stress ulcer prophylaxis -subcu heparin Code Status - Full Code 04/21 After calling multiple times I was able to speak to patient's son Trey who lives in [place]. He told me that he has not been in frequent contact with his mother and has left the family situation due to difficulty dealing with her and his brother. He states that Nidhi lives with Dc who he believes has behavioral issues including impulsiveness, aggressiveness and violent behavior. He agrees that patient has a poor living conditions at home and off only had lets her dogs sleep in bed with her and they are constantly licking and touching her legs that are infected. He states that he has told his mother multiple times that she needs to go to a long term but patient has refused and he states that he cant take this anymore and does not want his own family to be affected by his mother and brother. He is willing to be part in decision making when it comes to disposition but he states that he is not going to take her to his home. 04/22 It is clear the patient has poor conditions at home and is malnourished with lack of proper care considering her physical disability, frequent infections and now worsening kidney failure. I spoke to Daria again today. She is adamant that she does not want to go to long term. She wants to be full code and wants to to dialysis but does not know what that is and and whether that will involve traveling from home to a dialysis center 3 times a week. It is clear the patient does not have complete understanding of her medical problems and care and supportive care and treatment she needs. It is clear that it will not be able to be done at home. I am working with primary care provider and will try to get hold off patient's other son who lives with her today and get more information to come up with future plans. we have also discussed option of hospice but IM again not sure patient fully understands all the ins and out of it at this time. Total Critical Care Time - 30 minutes Due to a high probability of clinically significant, life threatening deterioration, the patient required my highest level of preparedness to intervene emergently and I personally spent this critical care time directly and personally managing the patient. This critical care time included obtaining a history; examining the patient; pulse oximetry; ordering and review of studies; arranging urgent treatment with development of a management plan; evaluation of patient's response to treatment; frequent reassessment; and discussions with other providers. It was exclusive of separately billable procedures and treating other patients and teaching time. Please see Assessment and Plan section and the rest of the note for further information on patient assessment and treatment Subjective Date/time seen: 04/22/25 Overnight events reviewed. Afebrile. Urine output remains low she was weaned off Levophed yesterday evening. She is on room air. P.o. intake has been low and she is only 10-20% of her plate. She told me that she is not hungry and she eats as much as she likes. She denies any specific complaints. Patient denies fever, chest pain, shortness of breath, cough, nausea vomiting, abdominal pain,, diarrhea, headache or constipation. sinus rhythm on the monitor and she was bradycardic while sleeping Review of Systems Review of Systems: All systems reviewed & are unremarkable except as noted in HPI and below ( HPI) Exam Narrative: General: Old frail cachectic female laying in bed on her side Lungs/Chest: Bibasilar crackles extensive scoliosis of spine Cardiac: RRR. Normal S1 S2. No murmurs Abdomen: Decrease bowel sounds. Cachectic. Soft. NT. ND. 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, right limb has extensive edema, several wounds covered under dressing, area of redness, blisters with fluid, right knee is also contracture in flexion position : Velez in place Neurologic: Patient is awake alert and oriented x3, she answers questions intermittently, PERRL MSK: Extensive scoliosis of spine and her neck is contracture towards the right side Objective Data Vital Signs Vital Signs: Vital Signs - 24 hr 04/21/25 10:00 04/21/25 10:00 04/21/25 10:00 Temperature 35.9 C L Pulse Rate 70 70 60 Respiratory Rate 21 H Blood Pressure 102/60 102/73 Pulse Oximetry 99 Oxygen Delivery 04/21/25 11:37 04/21/25 11:57 04/21/25 12:00 Temperature Pulse Rate 68 65 Respiratory Rate Blood Pressure 112/67 99/72 L Pulse Oximetry Oxygen Delivery Room Air 04/21/25 12:00 04/21/25 12:00 04/21/25 12:00 Temperature 35.7 C L Pulse Rate 64 64 62 Respiratory Rate 21 H Blood Pressure 99/72 L 99/72 L Pulse Oximetry 99 Oxygen Delivery 04/21/25 12:20 04/21/25 14:00 04/21/25 14:00 Temperature Pulse Rate 69 66 70 Respiratory Rate Blood Pressure 77/42 L 110/50 L Pulse Oximetry Oxygen Delivery 04/21/25 14:00 04/21/25 14:51 04/21/25 15:25 Temperature 36.5 C Pulse Rate 62 67 65 Respiratory Rate 14 Blood Pressure 96/57 L 108/56 L 90/49 L Pulse Oximetry 98 Oxygen Delivery 04/21/25 16:00 04/21/25 16:00 04/21/25 16:00 Temperature Pulse Rate 62 63 Respiratory Rate Blood Pressure 102/56 L Pulse Oximetry Oxygen Delivery Room Air 04/21/25 16:00 04/21/25 18:00 04/21/25 18:00 Temperature 36.5 C 36.2 C L Pulse Rate 70 63 61 Respiratory Rate 14 16 Blood Pressure 96/57 L 114/60 Pulse Oximetry 100 98 Oxygen Delivery 04/21/25 18:00 04/21/25 18:30 04/21/25 20:00 Temperature Pulse Rate 61 63 57 L Respiratory Rate Blood Pressure 97/56 L 101/80 96/55 L Pulse Oximetry Oxygen Delivery 04/21/25 20:00 04/21/25 20:00 04/21/25 20:00 Temperature 36.1 C L Pulse Rate 57 L 57 L Respiratory Rate 15 Blood Pressure 96/55 L Pulse Oximetry 100 Oxygen Delivery Room Air 04/21/25 21:00 04/21/25 22:00 04/21/25 22:00 Temperature 36.1 C L Pulse Rate 59 L 61 61 Respiratory Rate 15 Blood Pressure 101/55 L 95/55 L Pulse Oximetry 98 Oxygen Delivery 04/21/25 22:00 04/21/25 23:00 04/22/25 00:00 Temperature Pulse Rate 62 61 64 Respiratory Rate Blood Pressure 95/55 L 102/53 L 101/51 L Pulse Oximetry Oxygen Delivery 04/22/25 00:00 04/22/25 00:00 04/22/25 00:00 Temperature 36.2 C L Pulse Rate 62 62 Respiratory Rate 15 Blood Pressure 101/51 L Pulse Oximetry 97 Oxygen Delivery Room Air 04/22/25 01:00 04/22/25 02:00 04/22/25 02:00 Temperature 36.2 C L Pulse Rate 59 L 56 L 56 L Respiratory Rate 15 Blood Pressure 94/56 L 97/57 L Pulse Oximetry 98 Oxygen Delivery 04/22/25 02:00 04/22/25 03:00 04/22/25 03:01 Temperature 36.1 C L Pulse Rate 56 L 58 L 58 L Respiratory Rate 16 Blood Pressure 97/57 L 92/62 L 92/62 L Pulse Oximetry 98 Oxygen Delivery 04/22/25 04:00 04/22/25 04:00 04/22/25 04:00 Temperature Pulse Rate 56 L 57 L Respiratory Rate Blood Pressure 95/48 L Pulse Oximetry Oxygen Delivery Room Air 04/22/25 04:15 04/22/25 05:15 04/22/25 05:30 Temperature 36.1 C L 35.8 C L 35.8 C L Pulse Rate 55 L Respiratory Rate 14 Blood Pressure 95/48 L Pulse Oximetry 98 Oxygen Delivery 04/22/25 05:45 04/22/25 06:00 04/22/25 06:00 Temperature 35.9 C L 36.0 C L Pulse Rate 53 L 53 L Respiratory Rate 15 Blood Pressure 89/57 L Pulse Oximetry 99 Oxygen Delivery 04/22/25 06:00 04/22/25 06:00 04/22/25 06:30 Temperature 36.0 C L Pulse Rate 53 L 59 L Respiratory Rate Blood Pressure 89/57 L 91/54 L Pulse Oximetry Oxygen Delivery 04/22/25 07:00 04/22/25 08:00 Temperature 36.2 C L Pulse Rate 55 L 62 Respiratory Rate 19 Blood Pressure 90/53 L 89/43 L Pulse Oximetry 100 Oxygen Delivery Intake/Output Intake/Output: Intake & Output 04/19/25 04/20/25 04/21/25 04/22/25 23:59 23:59 23:59 23:59 Intake Total 3153 3028.1 1180.2 507 Output Total 150 450 100 Balance 3153 2878.1 730.2 407 Meds/Results Medications: Active Medications Generic Name Dose Route Start Last Admin Trade Name Freq PRN Reason Stop Dose Admin Acetaminophen 650 mg 04/19/25 22:52 Acetaminophen 325 Mg Tablet PO Q4H PRN Mild Pain (1-3) Or Fever Dextrose 12.5 gm 04/20/25 01:24 04/22/25 05:34 Dextrose 50% 25 Gm/50 Ml Syringe IV PUSH 12.5 gm PRN PRN Administration Hypoglycemia Protocol Epoetin Sav-epbx 10,000 units 04/20/25 12:45 04/20/25 15:05 Epoetin Sav-Epbx 10,000 Units/Ml Vial SUB-Q 10,000 units TUTA@09 LISANDRA Administration Glucagon 1 mg 04/20/25 01:24 Glucagon For Inj 1 Mg Vial IM PRN PRN Hypoglycemia Protocol Glucose 15 gm 04/20/25 01:24 Glucose Oral Gel 15 Gm Of Glucse In 37.5 Gm Tube PO PRN PRN Hypoglycemia Protocol Heparin Sodium (Porcine) 5,000 units 04/20/25 09:00 04/21/25 21:13 Heparin Sodium 5,000 Units/Ml Vial SUB-Q 5,000 units Q12HR LISANDRA Administration Cefepime HCl 1 gm in 50 mls @ 100 mls/hr 04/20/25 22:00 04/21/25 21:49 Maxipime 1 Gm/Ns 50 Ml IVPB Infused Q24H LISANDRA Infusion Dextrose 1,000 mls @ 100 mls/hr 04/20/25 01:24 Dextrose 5% 1,000 Ml IVPB PRN PRN Hypoglycemia Protocol Linezolid 600 mg in 300 mls @ 300 mls/hr 04/20/25 09:45 04/21/25 22:14 Zyvox IVPB Infused Q12HR LISANDRA Infusion Sodium Bicarbonate 150 meq/ 1,100 mls @ 50 mls/hr 04/22/25 06:30 04/22/25 06:33 Dextrose IV CONT 50 mls/hr .Q22H LISANDRA Administration Magnesium Sulfate 2 gm in 50 mls @ 25 mls/hr 04/22/25 07:41 04/22/25 08:12 Magnesium Sulf 2 Gm/Water 50ml IVPB 04/22/25 09:40 25 mls/hr ONCE ONE Administration Calcium Gluconate 2,000 mg in 100 mls @ 100 mls/hr 04/22/25 07:41 04/22/25 08:13 Calcium Gluc 2,000 Mg/Ns 100ml IVPB 04/22/25 08:40 100 mls/hr ONCE ONE Administration Midodrine 10 mg 04/21/25 09:00 04/21/25 17:38 Midodrine Hcl 10 Mg Tablet PO 10 mg TID LISANDRA Administration Miscellaneous Information 1 each 04/19/25 00:01 04/20/25 18:24 Silver [Silver-Sept] 200 Mcg/Gram Gel Is Nonformulary, We Only Carry Silver Sulfadiazine C XX 05/19/25 00:00 Not Given CLARIFY LISANDRA Non-Formulary Medication 1 applic 04/20/25 09:00 Silver [Silver-Sept] TOPICAL 05/20/25 08:59 DAILY LISANDRA Sodium Bicarbonate 1,300 mg 04/20/25 09:00 04/21/25 17:38 Sodium Bicarbonate Tab 650 Mg Tablet PO 1,300 mg BID LISANDRA Administration Sodium Chloride 10 ml 04/20/25 14:00 04/22/25 06:32 Central Line Flush IV PUSH 10 ml Q8HR LISANDRA Administration Sodium Chloride 10 ml 04/20/25 11:09 Central Line Flush IV PUSH PRN PRN with TPN bag changes Sodium Chloride 20 ml 04/20/25 11:09 Central Line Flush IV PUSH PRN PRN after blood draws Radiology Results: ITS Impressions Head CT 04/19/25 17:49 IMPRESSION: No acute intracranial process. Cervical Spine CT 04/19/25 17:52 IMPRESSION: No acute fracture or traumatic malalignment in the cervical spine. Chest X-Ray 04/19/25 18:03 IMPRESSION: No acute cardiopulmonary process. Hip/Pelvis X-Ray 04/19/25 18:05 IMPRESSION: No definite fracture or hardware related complication, however examination is severely limited by difficulty with positioning. If there is persistent pain or clinical suspicion of injury is high, consider CT of the pelvis for further evaluation. Venous Doppler Study 04/19/25 18:09 IMPRESSION: Right popliteal vein not adequately visualized. Otherwise patent right lower extremity veins. No evidence of deep venous thrombosis. Labs Labs: Laboratory Results - last 24 hr 04/21/25 04/22/25 04/22/25 23:55 00:11 00:40 WBC RBC Hgb Hct MCV MCH MCHC RDW Plt Count MPV Sodium Potassium Chloride Carbon Dioxide Anion Gap BUN Creatinine Estim Creat Clear Calc Estimated GFR Glucose POC Capillary Glucose 69 160 H 96 Calcium Phosphorus Magnesium Total Bilirubin AST ALT Alkaline Phosphatase Total Protein Albumin 04/22/25 04/22/25 04/22/25 04:13 05:32 05:43 WBC 6.5 RBC 2.77 L Hgb 7.2 L Hct 23.8 L MCV 85.9 MCH 26.0 MCHC 30.3 L RDW 24.7 H Plt Count 205 MPV 9.5 Sodium 142 Potassium 3.7 Chloride 111 H Carbon Dioxide 19 L Anion Gap 12 BUN 63 H Creatinine 7.25 H Estim Creat Clear Calc 5 Estimated GFR 6 L Glucose 72 POC Capillary Glucose 69 202 H Calcium 7.2 L Phosphorus 6.0 H Magnesium 1.5 L Total Bilirubin 0.7 AST 29 ALT 11 Alkaline Phosphatase 86 Total Protein 5.0 L Albumin 2.4 L 04/22/25 06:28 WBC RBC Hgb Hct MCV MCH MCHC RDW Plt Count MPV Sodium Potassium Chloride Carbon Dioxide Anion Gap BUN Creatinine Estim Creat Clear Calc Estimated GFR Glucose POC Capillary Glucose 104 Calcium Phosphorus Magnesium Total Bilirubin AST ALT Alkaline Phosphatase Total Protein Albumin Quality VTE Prophylaxis VTE prophylaxis: pharmacologic ordered
[2025-04-22] MEDS: MIDODRINE HCL 10 MG TABLET PO ×3 (08:54→16:41)
[2025-04-22] MEDS: HEPARIN SODIUM 5,000 UNITS/ML VIAL 5000 UNITS SUB-Q ×2 (08:54→20:49)
[2025-04-22] MEDS: SODIUM BICARBONATE TAB 650 MG TABLET 1300 MG PO ×2 (08:54→16:41)
[2025-04-22] MEDS: LINEZOLID 600 MG/300 ML 600 MG/300 ML SOLN 300 MG IVPB ×2 (08:54→20:49)
--- NOTE | 2025-04-22 11:06 | P.PNNP_ITS ---
Progress Note: A&P Assessment and Plan (1) Acute kidney injury: Code(s): N17.9 - Acute kidney failure, unspecified Status: Acute Assessment and Plan: * as noted on admission * presumably due to several issues: * hemodynamic instability/shock * infection/sepsis (RLE cellulitis + UTI + previous MSSA bacteremia) * possible prerenal factors * other(?) * complicated by metabolic acidosis * however relatively stable electrolytes * concerning that she is not making much urine * remains at risk for APPLICATION DBA/dialysis (but no absolute indications at this time) * follow trend of repeat labs and UOP (2) Chronic kidney disease, stage 5: Code(s): N18.5 - Chronic kidney disease, stage 5 Status: Chronic Assessment and Plan: * baseline creatinine runs ~ 4.2 and 4.6mg/dl (based on hospitalization last month - March 2025) * creatinine was normal up until July of 2023 * extensive evaluation done on last hospital in March 2025: * renal ultrasound with small atrophic left kidney; unable to visualize right kidney due patient's contracted state * urine eosinophils negative * normal CPK * nephrotic range proteinuria * urine electrolytes prerenal * DOT positive with equivocal dsDNA-Ab * ANCA, complements, antiGBM-Ab, UPEP, and urine immunofixation negative * SPEP with poorly defined band (possible M-spike) migrating in the gamma region and serum immunofixation with IgM kappa monoclonal band * extensive discussion with patient and her son during March 2025 hospitalization - she adamantly refused to consider dialysis as a treatment option at that time (3) Septic shock: Code(s): A41.9 - Sepsis, unspecified organism; R65.21 - Severe sepsis with septic shock Status: Acute Assessment and Plan: * presumably due to: * UTI (UA suggestive but no culture done) * right lower extremity cellulitis * recent MSSA bacteremia (unclear if taking antibiotics prior to admission) * culture data noted (no growth to date) * off vasopressors and IV albumin * on midodrine * on antibiotics * follow trend of hemodynamics (4) MSSA bacteremia: Code(s): R78.81 - Bacteremia; B95.61 - Methicillin susceptible Staphylococcus aureus infection as the cause of diseases classified elsewhere Status: Acute Assessment and Plan: * blood culture data noted from March 2025 hospitalization: * from 04/07 - Staphylococcus aureus * from 04/10 - negative * source was not clear... * right knee wound versus skin wounds * TTE was negative for vegetations * on antibiotics (linezolid) (5) Cellulitis of right leg: Code(s): L03.115 - Cellulitis of right lower limb Status: Acute Assessment and Plan: * as suggested by admission exam * cultures (on this hospitalization) negative to date * on antibiotics (6) Anemia: Qualifiers: Anemia type: unspecified type Qualified Code(s): D64.9 - Anemia, unspecified Code(s): D64.9 - Anemia, unspecified Status: Acute Assessment and Plan: * related to advanced CKD along with acute illness * on Epogen 3x/week * follow trend of H/H (7) Metabolic acidosis: Code(s): E87.20 - Acidosis, unspecified Status: Acute Assessment and Plan: * compensating with oral bicarbonate and bicarb gtt * due to her CARL/ARF and CKD * follow CO2 levels (8) Severe protein-calorie malnutrition: Code(s): E43 - Unspecified severe protein-calorie malnutrition Status: Acute Assessment and Plan: * diminished oral intake on last hopilaization as well as this one * noted on/off issues with hypoglycemia * liberalize diet Although dialysis is a treatment option, she does not need this intervention urgently at this time -- however, I highly doubt the patient will be able to tolerate dialysis given her frail/deconditioned state and dialysis access will likely be a problem as unable to place central access given her contracted state...I would continue ongoing discussions with family regarding goals of therapy/plan of care given her multitude of medical issues/problems and associated limitations. Will continue to follow. Subjective Date/time seen: 04/22/25 11:06 Interval history: Follow-up for acute kidney injury/acute renal failure on chronic kidney disease. Chart reviewed -- assuming care from Dr. Melo; weaned off levophed with relative stability in MAP/blood pressure; she had continued to refuse dialysis but earlier this morning she stated she would be willing to do it but based on my conservation with her, I do not think she is fully comprehending the complexity of this issue; not making much urine at this time; no apparent distress noted. Exam 2 Narrative: General: elderly, frail and chronically ill appearing female in NAD Heart: normal S1 and S2; no rub Lungs: clear anteriorly Abdomen: soft, nontender, nondistended, positive bowel sounds Extremities: no cyanosis or clubbing; 1+ edema; left AKA Skin: mild erythema on RLE Objective Data Vital Signs Vital Signs: Vital Signs Temp Pulse Resp BP Pulse Ox O2 Del Method 04/22/25 10:00 97.4 F L 56 L 16 88/44 L 100 04/22/25 08:00 97.1 F L 62 19 89/43 L 100 04/22/25 08:00 62 04/22/25 08:00 62 19 100 Room Air 04/22/25 07:00 55 L 90/53 L 04/22/25 06:30 59 L 91/54 L 04/22/25 06:00 96.8 F L 04/22/25 06:00 53 L 89/57 L 04/22/25 06:00 96.8 F L 53 L 15 89/57 L 99 04/22/25 06:00 53 L 04/22/25 05:45 96.7 F L 04/22/25 05:30 96.5 F L 04/22/25 05:15 96.5 F L 04/22/25 04:15 96.9 F L 55 L 14 95/48 L 98 04/22/25 04:00 57 L 04/22/25 04:00 Room Air 04/22/25 04:00 56 L 95/48 L 04/22/25 03:01 97.0 F L 58 L 16 92/62 L 98 04/22/25 03:00 58 L 92/62 L 04/22/25 02:00 56 L 97/57 L 04/22/25 02:00 56 L 04/22/25 02:00 97.2 F L 56 L 15 97/57 L 98 04/22/25 01:00 59 L 94/56 L 04/22/25 00:00 97.1 F L 62 15 101/51 L 97 04/22/25 00:00 Room Air 04/22/25 00:00 62 04/22/25 00:00 64 101/51 L 04/21/25 23:00 61 102/53 L 04/21/25 22:00 62 95/55 L 04/21/25 22:00 61 04/21/25 22:00 97.0 F L 61 15 95/55 L 98 04/21/25 21:00 59 L 101/55 L 04/21/25 20:00 Room Air 04/21/25 20:00 97.0 F L 57 L 15 96/55 L 100 04/21/25 20:00 57 L 04/21/25 20:00 57 L 96/55 L 04/21/25 18:30 63 101/80 04/21/25 18:00 61 97/56 L 04/21/25 18:00 97.2 F L 61 16 114/60 98 04/21/25 18:00 63 04/21/25 16:00 97.7 F 70 14 96/57 L 100 04/21/25 16:00 63 04/21/25 16:00 Room Air 04/21/25 16:00 62 102/56 L 04/21/25 15:25 65 90/49 L 04/21/25 14:51 67 108/56 L 04/21/25 14:00 97.7 F 62 14 96/57 L 98 04/21/25 14:00 70 04/21/25 14:00 66 110/50 L Intake/Output Intake/Output: Intake & Output 04/19/25 04/20/25 04/21/25 04/22/25 23:59 23:59 23:59 23:59 Intake Total 3153 3028.1 1180.2 507 Output Total 150 450 100 Balance 3153 2878.1 730.2 407 Meds/Results Medications: Active Medications Generic Name Dose Route Start Last Admin Trade Name Freq PRN Reason Stop Dose Admin Acetaminophen 650 mg 04/19/25 22:52 Acetaminophen 325 Mg Tablet PO Q4H PRN Mild Pain (1-3) Or Fever Dextrose 12.5 gm 04/20/25 01:24 04/22/25 05:34 Dextrose 50% 25 Gm/50 Ml Syringe IV PUSH 12.5 gm PRN PRN Administration Hypoglycemia Protocol Epoetin Sav-epbx 10,000 units 04/20/25 12:45 04/20/25 15:05 Epoetin Sav-Epbx 10,000 Units/Ml Vial SUB-Q 10,000 units TUTHSA@09 LISANDRA Administration Glucagon 1 mg 04/20/25 01:24 Glucagon For Inj 1 Mg Vial IM PRN PRN Hypoglycemia Protocol Glucose 15 gm 04/20/25 01:24 Glucose Oral Gel 15 Gm Of Glucse In 37.5 Gm Tube PO PRN PRN Hypoglycemia Protocol Heparin Sodium (Porcine) 5,000 units 04/20/25 09:00 04/22/25 08:54 Heparin Sodium 5,000 Units/Ml Vial SUB-Q 5,000 units Q12HR LISANDRA Administration Cefepime HCl 1 gm in 50 mls @ 100 mls/hr 04/20/25 22:00 04/21/25 21:49 Maxipime 1 Gm/Ns 50 Ml IVPB Infused Q24H LISANDRA Infusion Dextrose 1,000 mls @ 100 mls/hr 04/20/25 01:24 Dextrose 5% 1,000 Ml IVPB PRN PRN Hypoglycemia Protocol Linezolid 600 mg in 300 mls @ 300 mls/hr 04/20/25 09:45 04/22/25 08:54 Zyvox IVPB 300 mls/hr Q12HR LISANDRA Administration Sodium Bicarbonate 150 meq/ 1,100 mls @ 25 mls/hr 04/22/25 06:30 04/22/25 06:33 Dextrose IV CONT 50 mls/hr .Q24H LISANDRA Administration Midodrine 10 mg 04/21/25 09:00 04/22/25 08:54 Midodrine Hcl 10 Mg Tablet PO 10 mg TID LISANDRA Administration Non-Formulary Medication 1 applic 04/20/25 09:00 Silver [Silver-Sept] TOPICAL 05/20/25 08:59 DAILY LISANDRA Sodium Bicarbonate 1,300 mg 04/20/25 09:00 04/22/25 08:54 Sodium Bicarbonate Tab 650 Mg Tablet PO 1,300 mg BID LISANDRA Administration Sodium Chloride 10 ml 04/20/25 14:00 04/22/25 06:32 Central Line Flush IV PUSH 10 ml Q8HR LISANDRA Administration Sodium Chloride 10 ml 04/20/25 11:09 Central Line Flush IV PUSH PRN PRN with TPN bag changes Sodium Chloride 20 ml 04/20/25 11:09 Central Line Flush IV PUSH PRN PRN after blood draws Radiology Results: ITS Impressions Head CT 04/19/25 17:49 IMPRESSION: No acute intracranial process. Cervical Spine CT 04/19/25 17:52 IMPRESSION: No acute fracture or traumatic malalignment in the cervical spine. Chest X-Ray 04/19/25 18:03 IMPRESSION: No acute cardiopulmonary process. Hip/Pelvis X-Ray 04/19/25 18:05 IMPRESSION: No definite fracture or hardware related complication, however examination is severely limited by difficulty with positioning. If there is persistent pain or clinical suspicion of injury is high, consider CT of the pelvis for further evaluation. Venous Doppler Study 04/19/25 18:09 IMPRESSION: Right popliteal vein not adequately visualized. Otherwise patent right lower extremity veins. No evidence of deep venous thrombosis. Labs Labs: Laboratory Tests 04/22/25 04:13 04/22/25 04:13 Calcium 7.2 L Phosphorus 6.0 H Magnesium 1.5 L Total Bilirubin 0.7 AST 29 ALT 11 Alkaline Phosphatase 86 Total Protein 5.0 L Albumin 2.4 L
[2025-04-22 11:16] LABS: Glucose Point of Care 72 mg/dl (65-105)
[2025-04-22] MEDS: NOREPINEPHRINE 8 MG/D5W 250 ML 8 MG/250 ML BAG 9.38 MG IV CONT (14:01)
--- NOTE | 2025-04-22 17:53 | P.PNIM_ITS ---
Progress Note: A&P Assessment and Plan (1) Septic shock: Code(s): A41.9 - Sepsis, unspecified organism; R65.21 - Severe sepsis with septic shock Status: Acute (2) Acute renal failure superimposed on stage 5 chronic kidney disease, not on chronic dialysis: Qualifiers: Acute renal failure type: with acute tubular necrosis Qualified Code(s): N17.0 - Acute kidney failure with tubular necrosis; N18.5 - Chronic kidney disease, stage 5 Code(s): N17.9 - Acute kidney failure, unspecified; N18.5 - Chronic kidney disease, stage 5 Status: Acute (3) Acute hyperkalemia: Code(s): E87.5 - Hyperkalemia Status: Acute (4) MSSA bacteremia: Code(s): R78.81 - Bacteremia; B95.61 - Methicillin susceptible Staphylococcus aureus infection as the cause of diseases classified elsewhere Status: Acute (5) Hypothermia due to non-environmental cause: Code(s): R68.0 - Hypothermia, not associated with low environmental temperature Status: Acute (6) Cellulitis of lower leg: Code(s): L03.119 - Cellulitis of unspecified part of limb Status: Acute (7) Metabolic acidosis: Code(s): E87.20 - Acidosis, unspecified Status: Acute (8) Severe protein-calorie malnutrition: Code(s): E43 - Unspecified severe protein-calorie malnutrition Status: Acute Plan Patient presents with shock due to sepsis. Sepsis criteria met with profound hypothermia, tachypnea, hypotension despite adequate fluid resuscitation and acute on chronic kidney injury with metabolic encephalopathy. Source of sepsis could be due to cellulitis verses recurrent MSSA bacteremia. Is unclear if the patient was continuing with her antibiotic therapy with linezolid at home or not. Blood cultures were obtained in the ER. The patient received total of 3.5 L in fluid bolus which was much greater than 30 mL/kilos volume fluid resuscitation in remained hypotensive. Patient was subsequently started on peripheral pressor therapy with Gerson-Synephrine as we were unable to place a central line. Blood cultures were obtained and are pending. Will continue IV fluid hydration and will wean pressors as tolerated. Will continue pressors for goal maps of 65-70. Will repeat CBC with differential in a.m.. Will continue cefepime and vancomycin. Supervisor Files has been consulted. Patient does have acute kidney injury on chronic kidney disease with associated hyperkalemia. The patient received insulin, dextrose, calcium gluconate, Lokelma and a nebulizer treatment in the ER. Patient's serum bicarb is acutely decompensated from baseline. Venous blood gas was obtained after my evaluation which demonstrated severe metabolic acidosis with compensatory respiratory alkalosis. You acute metabolic acidosis is new patient had prior chronic metabolic acidosis that was compensated during last hospitalization. Patient's was given a amp of sodium bicarb and started on bicarb drip. Will repeat electrolyte panel including phosphorus and magnesium in a.m.. Will consult Nephrology. Patient has severe protein calorie malnutrition and is cachectic. She benefit from nutritional supplementation when clinically stable. Patient arrived to the ER disheveled with multiple wounds in bruises. Poor living conditions reported by EMS. Care coordination consult has been placed. patient came to the ER and EMS reported poor living condition and patient with wound and bruising with animal hair per nursing, staff, patient was sent to ER after she fell from her wheel chair unfortunately patient in unable to provibe any ROS or history, today patient is more awake, stats has no complaints, patient is found to have CKD and needs of HD however patient has refused it, again today patient was seen by her experimental rocket sled mechanic and patient is refusing dialysis, upon arrival her BUN and Scr was 77/9.75 and patient been hydrated with IVF and now it is 63/7.25 patient remains at risk for 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 patient is seen by experimental rocket sled mechanic and funeral attendant and appreciate. Subjective Date/time seen: 04/22/25 17:53 Interval history: Chief Complaint: Fall from wheelchair H&P-Narrative: 69-year-old female with a past medical history of chronic anemia, lymphedema of the right lower extremity, prior left [id number] amputation, essential hypertension, depression and anxiety and chronic kidney disease stage 5, and recent hospitalization with severe anemia, MSSA bacteremia and ulcer with cellulitis of the right knee who presented to the ER via EMS after having a fall out of her wheelchair. Source of information is from the ER records and past medical records patient is only alert oriented to her name at the time of my evaluation. Per ER records the patient's son called EMS after patient fell out of her wheelchair. She was reportedly not on the floor for very long. She was alert orient x2 per EMS. The patient had numerous scabs on her lower extremity which were covered in animal hair. Patient reportedly was found to have roaches on her at the home. Patient is diabetic and does not check her blood sugars at home. In the ER the patient was found to be profoundly hypothermic with an initial temperature of 92.2?. Her initial blood pressures were normal but quickly downtrended to the 80s and 90s systolic. She received 2 L of normal saline and 1.5 L of LR in remained hypotensive. Her blood pressures shortly after arrival to the ICU where his low as 69/45 after Gerson-Synephrine had already been started. I evaluated the patient down in the ER at which time the ER physician was trying to place a central line. Due to the patient's contractures and anatomy the only viable option for central line placement was the left IJ and after numerous attempts efforts were ceased. The patient was started on Gerson-Synephrine peripherally. White count was normal and hemoglobin was slightly increased from prior value of 9. Patient had mild hyperkalemia and acutely worsening creatinine from baseline of 4.5 up to 9. Serum bicarb was low at 8. Patient was initially started on Ancef for cellulitis but was switched to broad- spectrum antibiotic coverage with cefepime and vancomycin. Patient did have mildly elevated CK level in the ER. Patient had been admitted to the hospital 04/04/2025 through 04/12/2025 and was noted to have profound anemia with hemoglobin of 3.4. She received 3 units of packed red blood cells with improvement in her hemoglobin at that time her stool occult blood was negative. She was also found to have MSSA bacteremia with echocardiogram negative for evidence of vegetation with repeat blood cultures that were negative. Patient was initially treated with Rocephin and vancomycin but was switched to linezolid at discharge. It is unclear if the patient has been compliant with linezolid after discharge. She was supposed to stay on linezolid until 04/24/2025. Patient was evaluated by Nephrology during prior visit and was found to have chronic kidney disease with prior baseline less than 1 in 2022 with value on discharge of 4. She was noted to have an DOT positive indeterminate double-stranded DNA antibody, and ANCA negative, SPEP with poorly defined band possible M spike but normal urine protein electrophoresis. She had nephrotic range proteinuria and normal kappa lambda ratio. Her and complements were negative. Patient had previously refused hemodialysis. patient came to the ER and EMS reported poor living condition and patient with wound and bruising with animal hair per nursing, staff, patient was sent to ER after she fell from her wheel chair unfortunately patient in unable to provibe any ROS or history, today patient is more awake, stats has no complaints, patient is found to have CKD and needs of HD however patient has refused it, again today patient was seen by her experimental rocket sled mechanic and patient is refusing dialysis, upon arrival her BUN and Scr was 77/9.75 and patient been hydrated wi th IVF and now it is 63/7.25 patient remains at risk for 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 patient is seen by experimental rocket sled mechanic and funeral attendant and appreciate. Review of Systems Review of Systems: ROS unobtainable: Yes unobtainable due to medical condition and unobtainable due to mental status Exam Narrative: unable to fully examine as patient is contracte upper and lower extremities with bruising and sores Patient is comfortable, NAD HEENT: eyes are clear and none icteric Lower extremities: edema bruised and sores SKIN: nonjaundiced, bruised and sores Neuro: grossly intact. Objective Data Vital Signs Vital Signs: Vital Signs - 24 hr 04/21/25 18:00 04/21/25 18:00 04/21/25 18:00 Temperature 36.2 C L Pulse Rate 63 61 61 Respiratory Rate 16 Blood Pressure 114/60 97/56 L Pulse Oximetry 98 Oxygen Delivery 04/21/25 18:30 04/21/25 20:00 04/21/25 20:00 Temperature Pulse Rate 63 57 L 57 L Respiratory Rate Blood Pressure 101/80 96/55 L Pulse Oximetry Oxygen Delivery 04/21/25 20:00 04/21/25 20:00 04/21/25 21:00 Temperature 36.1 C L Pulse Rate 57 L 59 L Respiratory Rate 15 Blood Pressure 96/55 L 101/55 L Pulse Oximetry 100 Oxygen Delivery Room Air 04/21/25 22:00 04/21/25 22:00 04/21/25 22:00 Temperature 36.1 C L Pulse Rate 61 61 62 Respiratory Rate 15 Blood Pressure 95/55 L 95/55 L Pulse Oximetry 98 Oxygen Delivery 04/21/25 23:00 04/22/25 00:00 04/22/25 00:00 Temperature Pulse Rate 61 64 62 Respiratory Rate Blood Pressure 102/53 L 101/51 L Pulse Oximetry Oxygen Delivery 04/22/25 00:00 04/22/25 00:00 04/22/25 01:00 Temperature 36.2 C L Pulse Rate 62 59 L Respiratory Rate 15 Blood Pressure 101/51 L 94/56 L Pulse Oximetry 97 Oxygen Delivery Room Air 04/22/25 02:00 04/22/25 02:00 04/22/25 02:00 Temperature 36.2 C L Pulse Rate 56 L 56 L 56 L Respiratory Rate 15 Blood Pressure 97/57 L 97/57 L Pulse Oximetry 98 Oxygen Delivery 04/22/25 03:00 04/22/25 03:01 04/22/25 04:00 Temperature 36.1 C L Pulse Rate 58 L 58 L 56 L Respiratory Rate 16 Blood Pressure 92/62 L 92/62 L 95/48 L Pulse Oximetry 98 Oxygen Delivery 04/22/25 04:00 04/22/25 04:00 04/22/25 04:15 Temperature 36.1 C L Pulse Rate 57 L 55 L Respiratory Rate 14 Blood Pressure 95/48 L Pulse Oximetry 98 Oxygen Delivery Room Air 04/22/25 05:15 04/22/25 05:30 04/22/25 05:45 Temperature 35.8 C L 35.8 C L 35.9 C L Pulse Rate Respiratory Rate Blood Pressure Pulse Oximetry Oxygen Delivery 04/22/25 06:00 04/22/25 06:00 04/22/25 06:00 Temperature 36.0 C L Pulse Rate 53 L 53 L 53 L Respiratory Rate 15 Blood Pressure 89/57 L 89/57 L Pulse Oximetry 99 Oxygen Delivery 04/22/25 06:00 04/22/25 06:30 04/22/25 07:00 Temperature 36.0 C L Pulse Rate 59 L 55 L Respiratory Rate Blood Pressure 91/54 L 90/53 L Pulse Oximetry Oxygen Delivery 04/22/25 08:00 04/22/25 08:00 04/22/25 08:00 Temperature 36.2 C L Pulse Rate 62 62 62 Respiratory Rate 19 19 Blood Pressure 89/43 L Pulse Oximetry 100 100 Oxygen Delivery Room Air 04/22/25 10:00 04/22/25 10:00 04/22/25 12:00 Temperature 36.3 C L 36.4 C Pulse Rate 56 L 56 L 60 Respiratory Rate 16 15 Blood Pressure 88/44 L 93/47 L Pulse Oximetry 100 100 Oxygen Delivery 04/22/25 12:00 04/22/25 12:00 04/22/25 12:00 Temperature 36.4 C Pulse Rate 60 60 61 Respiratory Rate 15 12 Blood Pressure 100/49 L Pulse Oximetry 100 100 Oxygen Delivery Room Air 04/22/25 14:00 04/22/25 14:00 04/22/25 14:01 Temperature 36.7 C Pulse Rate 54 L 54 L 54 L Respiratory Rate 15 Blood Pressure 93/41 L 93/41 L Pulse Oximetry 100 Oxygen Delivery 04/22/25 14:15 04/22/25 14:30 04/22/25 14:45 Temperature Pulse Rate 57 L 64 64 Respiratory Rate Blood Pressure 145/62 H 150/60 H 142/64 H Pulse Oximetry Oxygen Delivery 04/22/25 15:00 04/22/25 15:15 04/22/25 15:30 Temperature Pulse Rate 63 70 62 Respiratory Rate Blood Pressure 123/58 L 83/59 L 90/47 L Pulse Oximetry Oxygen Delivery 04/22/25 16:00 04/22/25 16:00 04/22/25 16:00 Temperature 37.3 C Pulse Rate 64 65 65 Respiratory Rate 21 H 123 H Blood Pressure 89/45 L 101/50 L Pulse Oximetry 98 98 Oxygen Delivery Room Air 04/22/25 16:00 Temperature Pulse Rate 65 Respiratory Rate Blood Pressure Pulse Oximetry Oxygen Delivery Intake/Output Intake/Output: Intake & Output 04/19/25 04/20/25 04/21/25 04/22/25 23:59 23:59 23:59 23:59 Intake Total 3153 3028.1 1180.2 825.3 Output Total 150 450 250 Balance 3153 2878.1 730.2 575.3 Meds/Results Medications: Active Medications Generic Name Dose Route Start Last Admin Trade Name Freq PRN Reason Stop Dose Admin Acetaminophen 650 mg 04/19/25 22:52 Acetaminophen 325 Mg Tablet PO Q4H PRN Mild Pain (1-3) Or Fever Dextrose 12.5 gm 04/20/25 01:24 04/22/25 05:34 Dextrose 50% 25 Gm/50 Ml Syringe IV PUSH 12.5 gm PRN PRN Administration Hypoglycemia Protocol Epoetin Sav-epbx 10,000 units 04/20/25 12:45 04/20/25 15:05 Epoetin Sav-Epbx 10,000 Units/Ml Vial SUB-Q 10,000 units TUTHSA@09 LISANDRA Administration Glucagon 1 mg 04/20/25 01:24 Glucagon For Inj 1 Mg Vial IM PRN PRN Hypoglycemia Protocol Glucose 15 gm 04/20/25 01:24 Glucose Oral Gel 15 Gm Of Glucse In 37.5 Gm Tube PO PRN PRN Hypoglycemia Protocol Heparin Sodium (Porcine) 5,000 units 04/20/25 09:00 04/22/25 08:54 Heparin Sodium 5,000 Units/Ml Vial SUB-Q 5,000 units Q12HR LISANDRA Administration Cefepime HCl 1 gm in 50 mls @ 100 mls/hr 04/20/25 22:00 04/21/25 21:49 Maxipime 1 Gm/Ns 50 Ml IVPB Infused Q24H LISANDRA Infusion Dextrose 1,000 mls @ 100 mls/hr 04/20/25 01:24 Dextrose 5% 1,000 Ml IVPB PRN PRN Hypoglycemia Protocol Linezolid 600 mg in 300 mls @ 300 mls/hr 04/20/25 09:45 04/22/25 09:55 Zyvox IVPB Infused Q12HR LISANDRA Infusion Sodium Bicarbonate 150 meq/ 1,100 mls @ 25 mls/hr 04/22/25 06:30 04/22/25 06:33 Dextrose IV CONT 50 mls/hr .Q24H LISANDRA Administration Norepinephrine Bitartrate 8 mg in 250 mls @ 1.875 mls/hr 04/22/25 14:00 04/22/25 16:00 Levophed 8 Mg/D5w 250 Ml IV CONT 1 mcg/min .Q24H LISANDRA 1.88 mls/hr Titration Protocol 1 MCG/MIN Midodrine 10 mg 04/21/25 09:00 04/22/25 16:41 Midodrine Hcl 10 Mg Tablet PO 10 mg TID LISANDRA Administration Sodium Bicarbonate 1,300 mg 04/20/25 09:00 04/22/25 16:41 Sodium Bicarbonate Tab 650 Mg Tablet PO 1,300 mg BID LISANDRA Administration Sodium Chloride 10 ml 04/20/25 14:00 04/22/25 14:16 Central Line Flush IV PUSH 10 ml Q8HR LISANDRA Administration Sodium Chloride 10 ml 04/20/25 11:09 Central Line Flush IV PUSH PRN PRN with TPN bag changes Sodium Chloride 20 ml 04/20/25 11:09 Central Line Flush IV PUSH PRN PRN after blood draws Radiology Results: ITS Impressions Head CT 04/19/25 17:49 IMPRESSION: No acute intracranial process. Cervical Spine CT 04/19/25 17:52 IMPRESSION: No acute fracture or traumatic malalignment in the cervical spine. Chest X-Ray 04/19/25 18:03 IMPRESSION: No acute cardiopulmonary process. Hip/Pelvis X-Ray 04/19/25 18:05 IMPRESSION: No definite fracture or hardware related complication, however examination is severely limited by difficulty with positioning. If there is persistent pain or clinical suspicion of injury is high, consider CT of the pelvis for further evaluation. Venous Doppler Study 04/19/25 18:09 IMPRESSION: Right popliteal vein not adequately visualized. Otherwise patent right lower extremity veins. No evidence of deep venous thrombosis. Labs Labs: Laboratory Results - last 24 hr 04/21/25 04/22/25 04/22/25 23:55 00:11 00:40 WBC RBC Hgb Hct MCV MCH MCHC RDW Plt Count MPV Sodium Potassium Chloride Carbon Dioxide Anion Gap BUN Creatinine Estim Creat Clear Calc Estimated GFR Glucose POC Capillary Glucose 69 160 H 96 Calcium Phosphorus Magnesium Total Bilirubin AST ALT Alkaline Phosphatase Total Protein Albumin 04/22/25 04/22/25 04/22/25 04:13 05:32 05:43 WBC 6.5 RBC 2.77 L Hgb 7.2 L Hct 23.8 L MCV 85.9 MCH 26.0 MCHC 30.3 L RDW 24.7 H Plt Count 205 MPV 9.5 Sodium 142 Potassium 3.7 Chloride 111 H Carbon Dioxide 19 L Anion Gap 12 BUN 63 H Creatinine 7.25 H Estim Creat Clear Calc 5 Estimated GFR 6 L Glucose 72 POC Capillary Glucose 69 202 H Calcium 7.2 L Phosphorus 6.0 H Magnesium 1.5 L Total Bilirubin 0.7 AST 29 ALT 11 Alkaline Phosphatase 86 Total Protein 5.0 L Albumin 2.4 L 04/22/25 04/22/25 06:28 11:13 WBC RBC Hgb Hct MCV MCH MCHC RDW Plt Count MPV Sodium Potassium Chloride Carbon Dioxide Anion Gap BUN Creatinine Estim Creat Clear Calc Estimated GFR Glucose POC Capillary Glucose 104 72 Calcium Phosphorus Magnesium Total Bilirubin AST ALT Alkaline Phosphatase Total Protein Albumin
[2025-04-22 18:09] LABS: Glucose Point of Care 110 mg/dl (65-105)
[2025-04-22] MEDS: CEFEPIME 1 GM/NS 50 ML 1 GM/50 ML BAG IVPB (21:00)
[2025-04-22 23:59] LABS: Glucose Point of Care 86 mg/dl (65-105)
[2025-04-23] VITALS (30 sets, daily range): BP systolic 73–133; BP diastolic 42–67; PULSE 53–72; RESP 14–20; TEMP 36.1–37.8; O2SAT 97–100
--- NOTE | 2025-04-23 05:02 | ECG_ITS ---
Test Date: 2025-04-23 05:02:35 Measurements Intervals [place] Rate: 58 P: 0 OR: 0 QRS: -11 QRSD: 102 T: 50 QT: 466 QTc: 458 Interpretive Statements SINUS BRADYCARDIA WITH SUPRAVENTRICULAR BIGEMINY CONSIDER INFERIOR INFARCT, AGE INDETERMINATE NONSPECIFIC ST & T-WAVE ABNORMALITY- HIGH LATERAL LEADS ABNORMAL ECG Compared to ECG 04/19/2025 16:36:59 HEART RATE HAS INCREASED SUPRAVENTRCULAR BIGEMINY NOW PRESENT Electronically Signed On 04-23-2025 14:44:15 CDT by Jesse Wong D.O.
[2025-04-23 05:44] LABS: Hematocrit 28.1 % (37.0-47.0); Hemoglobin 8.5 g/dL (12.0-15.0); Mean Corpuscular HGB Conc 30.2 g/dl (32-36); Mean Corpuscular Hemoglobin 25.8 pg (26-34); Mean Corpuscular Volume 85.4 fl (80-100); Mean Platelet Volume 9.5 fl (7.4-10.4); Platelet Count Result 253 k/mm3 (150-375); Red Blood Count 3.29 M/mm3 (4.2-5.4); Red Cell Distribution Width 24.7 % (11.5-14.5); White Blood Count 8.5 K/mm3 (4.5-10.0)
[2025-04-23] MEDS: SODIUM BICARBONATE 8.4% 150 MEQ in DEXTROSE 5% 1,000 ML 950 ML 25 MEQ IV CONT (06:03)
[2025-04-23] MEDS: CENTRAL LINE FLUSH 10 ML IV PUSH ×3 (06:03→20:36)
[2025-04-23 06:26] LABS: Alanine Aminotransferase 12 U/L (6-35); Albumin Level 2.2 g/dL (3.5-5.1); Alkaline Phosphatase 96 U/L (38-126); Anion Gap 11 mmol/L (4-12); Aspartate Amino Transferase 27 U/L (14-36); Bilirubin,Total 0.5 mg/dL (0.2-1.3); Blood Urea Nitrogen 66 mg/dL (7-17); Calcium 7.5 mg/dL (8.4-10.2); Carbon Dioxide 21 mmol/L (22-30); Chloride 107 mmol/L (98-107); Estimated CRCL calculation 5 ml/min; Estimated Glomerular Filt Rate 6; Glucose 79 mg/dL (65-110); Magnesium 2.1 mg/dL (1.6-2.3); Phosphorus 4.8 mg/dL (2.5-4.5); Potassium 3.7 mmol/L (3.4-5.0); Sodium 139 mmol/L (137-145); Total Protein 4.8 g/dL (6.3-8.2)
[2025-04-23] MEDS: EPOETIN ALFA-EPBX 10,000 UNITS/ML VIAL 10000 UNITS SUB-Q (09:15)
[2025-04-23] MEDS: LINEZOLID 600 MG/300 ML 600 MG/300 ML SOLN 300 MG IVPB ×2 (09:15→20:35)
[2025-04-23] MEDS: HEPARIN SODIUM 5,000 UNITS/ML VIAL 5000 UNITS SUB-Q ×2 (09:15→20:35)
[2025-04-23] MEDS: SODIUM BICARBONATE TAB 650 MG TABLET 1300 MG PO ×2 (09:16→18:13)
[2025-04-23] MEDS: MIDODRINE HCL 10 MG TABLET PO ×3 (09:16→18:13)
--- NOTE | 2025-04-23 09:30 | P.PNNP_ITS ---
Progress Note: A&P Assessment and Plan (1) Acute kidney injury: Code(s): N17.9 - Acute kidney failure, unspecified Status: Acute Assessment and Plan: * as noted on admission * presumably due to several issues: * hemodynamic instability/shock * infection/sepsis (RLE cellulitis + UTI + previous MSSA bacteremia) * possible prerenal factors * other(?) * complicated by metabolic acidosis * however relatively stable electrolytes * concerning that she is not making much urine * remains at risk for RELIEF MANAGER/dialysis (but no absolute indications at this time) * follow trend of repeat labs and UOP (2) Chronic kidney disease, stage 5: Code(s): N18.5 - Chronic kidney disease, stage 5 Status: Chronic Assessment and Plan: * baseline creatinine runs ~ 4.2 and 4.6mg/dl (based on hospitalization last month - March 2025) * creatinine was normal up until July of 2023 * extensive evaluation done on last hospital in March 2025: * renal ultrasound with small atrophic left kidney; unable to visualize right kidney due patient's contracted state * urine eosinophils negative * normal CPK * nephrotic range proteinuria * urine electrolytes prerenal * DOT positive with equivocal dsDNA-Ab * ANCA, complements, antiGBM-Ab, UPEP, and urine immunofixation negative * SPEP with poorly defined band (possible M-spike) migrating in the gamma region and serum immunofixation with IgM kappa monoclonal band * extensive discussion with patient and her son during March 2025 hospitalization - she adamantly refused to consider dialysis as a treatment option at that time (3) Septic shock: Code(s): A41.9 - Sepsis, unspecified organism; R65.21 - Severe sepsis with septic shock Status: Acute Assessment and Plan: * presumably due to: * UTI (UA suggestive but no culture done) * right lower extremity cellulitis * recent MSSA bacteremia (unclear if taking antibiotics prior to admission) * culture data noted (no growth to date) * off vasopressors and IV albumin * on midodrine * on antibiotics * follow trend of hemodynamics (4) MSSA bacteremia: Code(s): R78.81 - Bacteremia; B95.61 - Methicillin susceptible Staphylococcus aureus infection as the cause of diseases classified elsewhere Status: Acute Assessment and Plan: * blood culture data noted from March 2025 hospitalization: * from 04/07 - Staphylococcus aureus * from 04/10 - negative * source was not clear... * right knee wound versus skin wounds * TTE was negative for vegetations * on antibiotics (linezolid) (5) Cellulitis of right leg: Code(s): L03.115 - Cellulitis of right lower limb Status: Acute Assessment and Plan: * as suggested by admission exam * cultures (on this hospitalization) negative to date * on antibiotics (6) Anemia: Qualifiers: Anemia type: unspecified type Qualified Code(s): D64.9 - Anemia, unspecified Code(s): D64.9 - Anemia, unspecified Status: Acute Assessment and Plan: * related to advanced CKD along with acute illness * on Epogen 3x/week * follow trend of H/H (7) Metabolic acidosis: Code(s): E87.20 - Acidosis, unspecified Status: Acute Assessment and Plan: * compensating with oral bicarbonate and bicarb gtt * due to her CARL/ARF and CKD * follow CO2 levels (8) Severe protein-calorie malnutrition: Code(s): E43 - Unspecified severe protein-calorie malnutrition Status: Acute Assessment and Plan: * diminished oral intake on last hopilaization as well as this one * noted on/off issues with hypoglycemia * liberalize diet Although dialysis is a treatment option, she does not need this intervention urgently at this time -- however, I highly doubt the patient will be able to tolerate dialysis given her frail/deconditioned state and dialysis access will likely be a problem as unable to place central access given her contracted state...I would continue ongoing discussions with family regarding goals of therapy/plan of care given her multitude of medical issues/problems and associated limitations. Will continue to follow. Subjective Date/time seen: 04/23/25 09:30 Interval history: Follow-up for acute kidney injury/acute renal failure on chronic kidney disease. No apparent distress noted at the time of my visit; no acute complaints voiced; urine output remains low but a tad better in comparison to the last few days; remain on low dose levophed whenn seen; diminished oral intake noted by nursing staff; no other events overnight or earlier this morning. Exam 2 Narrative: General: elderly, frail and chronically ill appearing female in NAD Heart: normal S1 and S2; no rub Lungs: clear anteriorly Abdomen: soft, nontender, nondistended, positive bowel sounds Extremities: no cyanosis or clubbing; 1+ edema; left AKA Skin: mild erythema on RLE Objective Data Vital Signs Vital Signs: Vital Signs Temp Pulse Resp BP Pulse Ox O2 Del Method FiO2 04/23/25 09:25 58 L 87/42 L 04/23/25 08:00 Room Air 04/23/25 08:00 60 04/23/25 08:00 53 L 99/53 L 04/23/25 08:00 97.5 F L 54 L 15 99/53 L 98 04/23/25 06:00 97.5 F L 55 L 15 98/47 L 99 04/23/25 06:00 55 L 04/23/25 06:00 55 L 98/50 L 04/23/25 05:00 59 L 120/48 L 04/23/25 04:45 66 105/43 L 04/23/25 04:00 55 L 04/23/25 04:00 97.0 F L 57 L 14 112/62 98 04/23/25 04:00 Room Air 04/23/25 03:45 61 119/67 04/23/25 02:45 60 118/62 04/23/25 02:30 61 126/52 L 04/23/25 02:15 60 73/42 L 04/23/25 02:00 65 04/23/25 02:00 98.2 F 65 16 99/47 L 100 04/23/25 01:45 63 91/65 L 04/23/25 01:30 60 121/57 L 04/23/25 01:15 57 L 95/54 L 04/23/25 01:00 64 98/44 L 04/23/25 00:00 62 104/53 L 04/23/25 00:00 62 04/23/25 00:00 99.0 F 62 17 104/53 L 100 04/23/25 00:00 Room Air 04/22/25 23:00 67 97/50 L 04/22/25 22:00 66 04/22/25 22:00 65 105/51 L 04/22/25 22:00 99.5 F 66 17 105/51 L 99 04/22/25 21:00 67 122/56 L 04/22/25 20:38 57 L 20 99 Room Air 21 04/22/25 20:00 63 04/22/25 20:00 Room Air 04/22/25 20:00 100.0 F H 63 17 100/46 L 98 04/22/25 20:00 63 100/46 L 04/22/25 18:00 65 103/51 L 04/22/25 18:00 65 04/22/25 18:00 99.5 F 64 17 101/47 L 98 04/22/25 16:00 65 04/22/25 16:00 65 123 H 98 Room Air 04/22/25 16:00 65 101/50 L 04/22/25 16:00 99.1 F 64 21 H 89/45 L 98 04/22/25 15:30 62 90/47 L 04/22/25 15:15 70 83/59 L 04/22/25 15:00 63 123/58 L 04/22/25 14:45 64 142/64 H 04/22/25 14:30 64 150/60 H 04/22/25 14:15 57 L 145/62 H 04/22/25 14:01 54 L 93/41 L 04/22/25 14:00 98.1 F 54 L 15 93/41 L 100 04/22/25 14:00 54 L Intake/Output Intake/Output: Intake & Output 04/20/25 04/21/25 04/22/25 04/23/25 23:59 23:59 23:59 23:59 Intake Total 3028.1 1180.2 1188.6 2128.8 Output Total 150 450 250 200 Balance 2878.1 730.2 938.6 1928.8 Meds/Results Medications: Active Medications Generic Name Dose Route Start Last Admin Trade Name Dilma PRN Reason Stop Dose Admin Acetaminophen 650 mg 04/19/25 22:52 Acetaminophen 325 Mg Tablet PO Q4H PRN Mild Pain (1-3) Or Fever Dextrose 12.5 gm 04/20/25 01:24 04/22/25 05:34 Dextrose 50% 25 Gm/50 Ml Syringe IV PUSH 12.5 gm PRN PRN Administration Hypoglycemia Protocol Epoetin Sav-epbx 10,000 units 04/20/25 12:45 04/23/25 09:15 Epoetin Sav-Epbx 10,000 Units/Ml Vial SUB-Q 10,000 units TUTHSA@09 LISANDRA Administration Glucagon 1 mg 04/20/25 01:24 Glucagon For Inj 1 Mg Vial IM PRN PRN Hypoglycemia Protocol Glucose 15 gm 04/20/25 01:24 Glucose Oral Gel 15 Gm Of Glucse In 37.5 Gm Tube PO PRN PRN Hypoglycemia Protocol Heparin Sodium (Porcine) 5,000 units 04/20/25 09:00 04/23/25 09:15 Heparin Sodium 5,000 Units/Ml Vial SUB-Q 5,000 units Q12HR LISANDRA Administration Dextrose 1,000 mls @ 100 mls/hr 04/20/25 01:24 Dextrose 5% 1,000 Ml IVPB PRN PRN Hypoglycemia Protocol Linezolid 600 mg in 300 mls @ 300 mls/hr 04/20/25 09:45 04/23/25 10:15 Zyvox IVPB Infused Q12HR LISANDRA Infusion Norepinephrine Bitartrate 8 mg in 250 mls @ 3.75 mls/hr 04/22/25 14:00 04/23/25 13:10 Levophed 8 Mg/D5w 250 Ml IV CONT 1 mcg/min .Q24H LISANDRA 1.88 mls/hr Titration Protocol 2 MCG/MIN Dextrose 1,000 mls @ 25 mls/hr 04/23/25 10:00 04/23/25 11:05 Dextrose 5% 1,000 Ml IV CONT 25 mls/hr .Q24H LISANDRA Administration Ceftriaxone Sodium 1 gm in 50 mls @ 100 mls/hr 04/23/25 10:25 04/23/25 11:35 Rocephin 1 Gm/Ns 50 Ml IVPB Infused QAM LISANDRA Infusion Midodrine 10 mg 04/21/25 09:00 04/23/25 09:16 Midodrine Hcl 10 Mg Tablet PO 10 mg TID LISANDRA Administration Sodium Bicarbonate 1,300 mg 04/20/25 09:00 04/23/25 09:16 Sodium Bicarbonate Tab 650 Mg Tablet PO 1,300 mg BID LISANDRA Administration Sodium Chloride 10 ml 04/20/25 14:00 04/23/25 06:03 Central Line Flush IV PUSH 10 ml Q8HR LISANDRA Administration Sodium Chloride 10 ml 04/20/25 11:09 Central Line Flush IV PUSH PRN PRN with TPN bag changes Sodium Chloride 20 ml 04/20/25 11:09 Central Line Flush IV PUSH PRN PRN after blood draws Radiology Results: ITS Impressions Head CT 04/19/25 17:49 IMPRESSION: No acute intracranial process. Cervical Spine CT 04/19/25 17:52 IMPRESSION: No acute fracture or traumatic malalignment in the cervical spine. Chest X-Ray 04/19/25 18:03 IMPRESSION: No acute cardiopulmonary process. Hip/Pelvis X-Ray 04/19/25 18:05 IMPRESSION: No definite fracture or hardware related complication, however examination is severely limited by difficulty with positioning. If there is persistent pain or clinical suspicion of injury is high, consider CT of the pelvis for further evaluation. Venous Doppler Study 04/19/25 18:09 IMPRESSION: Right popliteal vein not adequately visualized. Otherwise patent right lower extremity veins. No evidence of deep venous thrombosis. Labs Labs: Laboratory Tests 04/23/25 04:57 04/23/25 04:57 Calcium 7.5 L Phosphorus 4.8 H Magnesium 2.1 Total Bilirubin 0.5 AST 27 ALT 12 Alkaline Phosphatase 96 Total Protein 4.8 L Albumin 2.2 L
--- NOTE | 2025-04-23 09:43 | WPDINTPN ---
Progress Note: A&P Assessment and Plan (1) Septic shock: Code(s): A41.9 - Sepsis, unspecified organism; R65.21 - Severe sepsis with septic shock Status: Acute Assessment and Plan: Sepsis secondary to UTI and right lower extremity cellulitis. Patient was recently diagnosed with MSSA bacteremia and was discharged on p.o. antibiotics. Unsure of the compliance. - Procalcitonin 1.5 on admission Patient is currently on cefepime and linezolid Patient has had more than 4 L of fluid I will hold further IV fluids Patient was off Levophed but is back on at 1 mcg/min Off 25% albumin -at the time of admission, despite several attempts to physicians were unable to place central venous catheter. 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 PICC line was placed for better IV access to administer antibiotics and vasopressor -04/10/2025 and 04/19/2025 Repeat blood cultures are negative (2) Acute renal failure superimposed on stage 5 chronic kidney disease, not on chronic dialysis: Qualifiers: Acute renal failure type: with acute tubular necrosis Qualified Code(s): N17.0 - Acute kidney failure with tubular necrosis; N18.5 - Chronic kidney disease, stage 5 Code(s): N17.9 - Acute kidney failure, unspecified; N18.5 - Chronic kidney disease, stage 5 Status: Acute Assessment and Plan: Acute on chronic renal failure -Patient was discharged with creatinine of 4 and now presented with creatinine 9.75 on 04/19/25. . Recent workup has shown patient has severe medical renal disease - further fluids were held to minimize risk of volume overload - patient had refused dialysis in the past and again confirmed decision to the patternmaker metal bench and to Dr Titus on 04/21. Wet on 04/22 she stated she is okay with dialysis when asked her if she understood what dialysis is, she did not comprehend. -She is receiving bicarb infusion and tablet for metabolic acidosis -discussed the patternmaker metal bench, patient may not be a candidate for dialysis due to the recent infection states she has had and difficulty of placing a dialysis catheter monitor urine output electrolytes and creatinine (3) Metabolic acidosis: Code(s): E87.20 - Acidosis, unspecified Status: Acute Assessment and Plan: Continue p.o. bicarb (4) UTI (urinary tract infection): Code(s): N39.0 - Urinary tract infection, site not specified Status: Acute Assessment and Plan: See above (5) Cellulitis of right leg: Code(s): L03.115 - Cellulitis of right lower limb Status: Acute Assessment and Plan: See above (6) MSSA bacteremia: Code(s): R78.81 - Bacteremia; B95.61 - Methicillin susceptible Staphylococcus aureus infection as the cause of diseases classified elsewhere Status: Acute Assessment and Plan: See above (7) Ulcer of right leg: Qualifiers: Non-pressure ulcer stage: unspecified non-pressure ulcer stage Qualified Code(s): L97.919 - Non-pressure chronic ulcer of unspecified part of right lower leg with unspecified severity Code(s): L97.919 - Non-pressure chronic ulcer of unspecified part of right lower leg with unspecified severity Status: Chronic Assessment and Plan: Appreciate wound care team evaluation and recommendation (8) Severe protein-calorie malnutrition: Code(s): E43 - Unspecified severe protein-calorie malnutrition Status: Acute Assessment and Plan: Patient's p.o. intake has not been adequate. she eats only 10-20% of her plate. Patient has been hypoglycemic - 04/22: Was started on D5 with bicarb at 50 to prevent hypoglycemia. -DC bicarb infusion and will start D5 at 25 mL/hour for hypoglycemia -according to Dr. Titus, patient has been eating only 20% off her meals. -dietitian has been consulted for evaluation, supplements added Plan DVT prophylaxis -heparin Stress ulcer prophylaxis -not indicated Nutrition: Heart healthy diet Code Status - Full Code 04/21: After calling multiple times Dr Titus was able to speak to patient's son Trey who lives in [place]. He told me that he has not been in frequent contact with his mother and has left the family situation due to difficulty dealing with her and his brother. He states that Nidhi lives with Dc who he believes has behavioral issues including impulsiveness, aggressiveness and violent behavior. He agrees that patient has a poor living conditions at home and off only had lets her dogs sleep in bed with her and they are constantly licking and touching her legs that are infected. He states that he has told his mother multiple times that she needs to go to a halfway but patient has refused and he states that he cant take this anymore and does not want his own family to be affected by his mother and brother. He is willing to be part in decision making when it comes to disposition but he states that he is not going to take her to his home. 04/22: It is clear the patient has poor conditions at home and is malnourished with lack of proper care considering her physical disability, frequent infections and now worsening kidney failure. Dr. Titus spoke to Daria again today. She is adamant that she does not want to go to halfway. She wants to be full code and wants to to dialysis but does not know what that is and and whether that will involve traveling from home to a dialysis center 3 times a week. It is clear the patient does not have complete understanding of her medical problems and care and supportive care and treatment she needs. It is clear that it will not be able to be done at home. I am working with patient care technician instructor and will try to get hold off patient's other son who lives with her today and get more information to come up with future plans. we have also discussed option of hospice but IM again not sure patient fully understands all the ins and out of it at this time. 04/23: Eileen, from Care coordination discussed with son Trey will be coming to the hospital this afternoon, family meeting will be set. He agrees with no dialysis. Further plan of care to be discussed during family meeting Total Critical Care Time - 34 minutes Due to a high probability of clinically significant, life threatening deterioration, the patient required my highest level of preparedness to intervene emergently and I personally spent this critical care time directly and personally managing the patient. This critical care time included obtaining a history; examining the patient; pulse oximetry; ordering and review of studies; arranging urgent treatment with development of a management plan; evaluation of patient's response to treatment; frequent reassessment; and discussions with other providers. It was exclusive of separately billable procedures and treating other patients and teaching time. Please see Assessment and Plan section and the rest of the note for further information on patient assessment and treatment This dictation may have been done utilizing a voice recognition system. Attempts have been made to correct errors. However, there may be uncorrected grammatical, spelling, and recognitions errors present. Subjective Date/time seen: 04/23/25 09:43 Interval history: 69-year-old female with a past medical history of chronic anemia, lymphedema of the right lower extremity, prior left [id number] amputation, essential hypertension, depression and anxiety and chronic kidney disease stage 5, and recent hospitalization with severe anemia, MSSA bacteremia and ulcer with cellulitis of the right knee who presented to the ER via EMS after having a fall out of her wheelchair. 04/23/2025: Patient seen and examined in the ICU, is awake, alert, oriented x2, did not know the name of the president, patient denies any chest pain, shortness of breath, abdominal pain, nausea vomiting at this time. Patient is afebrile, urine output remains low but better than the previous days. Patient is afebrile, remains on Levophed at 1 mcg/min. Decreased oral intake, positive bowel movement Review of Systems Review of Systems: All systems reviewed & are unremarkable except as noted in HPI and below ( HPI) Exam Narrative: General: Appears older than her age, frail, cachectic female laying in bed, in no acute distress Lungs/Chest: Scoliosis of the spine, decreased air entry at bases, otherwise clear to auscultation Cardiac: Irregularly irregular, rate controlled with intermittent bradycardia Abdomen: Hypoactive bowel sounds. Cachectic. Soft. NT. ND. 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, right limb has extensive edema, several wounds covered under dressing, area of redness, blisters with fluid, right knee is also contracted in flexion position : Velez in place Neurologic: Patient is awake alert and oriented x2, did not know the president but was able time and date of , she answers questions intermittently, PERRL MSK: Extensive scoliosis of spine and her neck is contracture towards the right side Objective Data Vital Signs Vital Signs: Vital Signs - 24 hr 04/22/25 10:00 04/22/25 10:04/22/25 12:00 Temperature 97.4 F L 97.6 F Pulse Rate 56 L 56 L 60 Respiratory Rate 16 15 Blood Pressure 88/44 L 93/47 L Pulse Oximetry 100 100 Oxygen Delivery Fraction of Inspired Oxygen 04/22/25 12:00 04/22/25 12:00 04/22/25 12:00 Temperature 97.6 F Pulse Rate 60 60 61 Respiratory Rate 15 12 Blood Pressure 100/49 L Pulse Oximetry 100 100 Oxygen Delivery Room Air Fraction of Inspired Oxygen 04/22/25 14:00 04/22/25 14:00 04/22/25 14:01 Temperature 98.1 F Pulse Rate 54 L 54 L 54 L Respiratory Rate 15 Blood Pressure 93/41 L 93/41 L Pulse Oximetry 100 Oxygen Delivery Fraction of Inspired Oxygen 04/22/25 14:15 04/22/25 14:30 04/22/25 14:45 Temperature Pulse Rate 57 L 64 64 Respiratory Rate Blood Pressure 145/62 H 150/60 H 142/64 H Pulse Oximetry Oxygen Delivery Fraction of Inspired Oxygen 04/22/25 15:00 04/22/25 15:15 04/22/25 15:30 Temperature Pulse Rate 63 70 62 Respiratory Rate Blood Pressure 123/58 L 83/59 L 90/47 L Pulse Oximetry Oxygen Delivery Fraction of Inspired Oxygen 04/22/25 16:00 04/22/25 16:00 04/22/25 16:00 Temperature 99.1 F Pulse Rate 64 65 65 Respiratory Rate 21 H 123 H Blood Pressure 89/45 L 101/50 L Pulse Oximetry 98 98 Oxygen Delivery Room Air Fraction of Inspired Oxygen 04/22/25 16:00 04/22/25 18:00 04/22/25 18:00 Temperature 99.5 F Pulse Rate 65 64 65 Respiratory Rate 17 Blood Pressure 101/47 L Pulse Oximetry 98 Oxygen Delivery Fraction of Inspired Oxygen 04/22/25 18:00 04/22/25 20:00 04/22/25 20:00 Temperature 100.0 F H Pulse Rate 65 63 63 Respiratory Rate 17 Blood Pressure 103/51 L 100/46 L 100/46 L Pulse Oximetry 98 Oxygen Delivery Fraction of Inspired Oxygen 04/22/25 20:00 04/22/25 20:00 04/22/25 20:38 Temperature Pulse Rate 63 57 L Respiratory Rate 20 Blood Pressure Pulse Oximetry 99 Oxygen Delivery Room Air Room Air Fraction of Inspired Oxygen 21 04/22/25 21:00 04/22/25 22:00 04/22/25 22:00 Temperature 99.5 F Pulse Rate 67 66 65 Respiratory Rate 17 Blood Pressure 122/56 L 105/51 L 105/51 L Pulse Oximetry 99 Oxygen Delivery Fraction of Inspired Oxygen 04/22/25 22:00 04/22/25 23:00 04/23/25 00:00 Temperature Pulse Rate 66 67 Respiratory Rate Blood Pressure 97/50 L Pulse Oximetry Oxygen Delivery Room Air Fraction of Inspired Oxygen 04/23/25 00:00 04/23/25 00:00 04/23/25 00:00 Temperature 99.0 F Pulse Rate 62 62 62 Respiratory Rate 17 Blood Pressure 104/53 L 104/53 L Pulse Oximetry 100 Oxygen Delivery Fraction of Inspired Oxygen 04/23/25 01:00 04/23/25 01:15 04/23/25 01:30 Temperature Pulse Rate 64 57 L 60 Respiratory Rate Blood Pressure 98/44 L 95/54 L 121/57 L Pulse Oximetry Oxygen Delivery Fraction of Inspired Oxygen 04/23/25 01:45 04/23/25 02:00 04/23/25 02:00 Temperature 98.2 F Pulse Rate 63 65 65 Respiratory Rate 16 Blood Pressure 91/65 L 99/47 L Pulse Oximetry 100 Oxygen Delivery Fraction of Inspired Oxygen 04/23/25 02:15 04/23/25 02:30 04/23/25 02:45 Temperature Pulse Rate 60 61 60 Respiratory Rate Blood Pressure 73/42 L 126/52 L 118/62 Pulse Oximetry Oxygen Delivery Fraction of Inspired Oxygen 04/23/25 03:45 04/23/25 04:00 04/23/25 04:00 Temperature 97.0 F L Pulse Rate 61 57 L Respiratory Rate 14 Blood Pressure 119/67 112/62 Pulse Oximetry 98 Oxygen Delivery Room Air Fraction of Inspired Oxygen 04/23/25 04:00 04/23/25 04:45 04/23/25 05:00 Temperature Pulse Rate 55 L 66 59 L Respiratory Rate Blood Pressure 105/43 L 120/48 L Pulse Oximetry Oxygen Delivery Fraction of Inspired Oxygen 04/23/25 06:00 04/23/25 06:00 04/23/25 06:00 Temperature 97.5 F L Pulse Rate 55 L 55 L 55 L Respiratory Rate 15 Blood Pressure 98/50 L 98/47 L Pulse Oximetry 99 Oxygen Delivery Fraction of Inspired Oxygen 04/23/25 08:00 Temperature 97.5 F L Pulse Rate 54 L Respiratory Rate 15 Blood Pressure 99/53 L Pulse Oximetry 98 Oxygen Delivery Fraction of Inspired Oxygen Intake/Output Intake/Output: Intake & Output 04/20/25 04/21/25 04/22/25 04/23/25 23:59 23:59 23:59 23:59 Intake Total 3028.1 1180.2 1188.6 1454.6 Output Total 150 450 250 200 Balance 2878.1 730.2 938.6 1254.6 Meds/Results Medications: Active Medications Generic Name Dose Route Start Last Admin Trade Name Freq PRN Reason Stop Dose Admin Acetaminophen 650 mg 04/19/25 22:52 Acetaminophen 325 Mg Tablet PO Q4H PRN Mild Pain (1-3) Or Fever Dextrose 12.5 gm 04/20/25 01:24 04/22/25 05:34 Dextrose 50% 25 Gm/50 Ml Syringe IV PUSH 12.5 gm PRN PRN Administration Hypoglycemia Protocol Epoetin Sav-epbx 10,000 units 04/20/25 12:45 04/23/25 09:15 Epoetin Sav-Epbx 10,000 Units/Ml Vial SUB-Q 10,000 units TUTHSA@09 LISANDRA Administration Glucagon 1 mg 04/20/25 01:24 Glucagon For Inj 1 Mg Vial IM PRN PRN Hypoglycemia Protocol Glucose 15 gm 04/20/25 01:24 Glucose Oral Gel 15 Gm Of Glucse In 37.5 Gm Tube PO PRN PRN Hypoglycemia Protocol Heparin Sodium (Porcine) 5,000 units 04/20/25 09:00 04/23/25 09:15 Heparin Sodium 5,000 Units/Ml Vial SUB-Q 5,000 units Q12HR LISANDRA Administration Cefepime HCl 1 gm in 50 mls @ 100 mls/hr 04/20/25 22:00 04/22/25 21:30 Maxipime 1 Gm/Ns 50 Ml IVPB Infused Q24H LISANDRA Infusion Dextrose 1,000 mls @ 100 mls/hr 04/20/25 01:24 Dextrose 5% 1,000 Ml IVPB PRN PRN Hypoglycemia Protocol Linezolid 600 mg in 300 mls @ 300 mls/hr 04/20/25 09:45 04/23/25 09:15 Zyvox IVPB 300 mls/hr Q12HR LISANDRA Administration Sodium Bicarbonate 150 meq/ 1,100 mls @ 25 mls/hr 04/22/25 06:30 04/23/25 06:03 Dextrose IV CONT 25 mls/hr .Q24H LISANDRA Administration Norepinephrine Bitartrate 8 mg in 250 mls @ 3.75 mls/hr 04/22/25 14:00 04/23/25 06:00 Levophed 8 Mg/D5w 250 Ml IV CONT 1 mcg/min .Q24H LISANDRA 1.88 mls/hr Titration Protocol 2 MCG/MIN Midodrine 10 mg 04/21/25 09:00 04/23/25 09:16 Midodrine Hcl 10 Mg Tablet PO 10 mg TID LISANDRA Administration Sodium Bicarbonate 1,300 mg 04/20/25 09:00 04/23/25 09:16 Sodium Bicarbonate Tab 650 Mg Tablet PO 1,300 mg BID LISANDRA Administration Sodium Chloride 10 ml 04/20/25 14:00 04/23/25 06:03 Central Line Flush IV PUSH 10 ml Q8HR LISANDRA Administration Sodium Chloride 10 ml 04/20/25 11:09 Central Line Flush IV PUSH PRN PRN with TPN bag changes Sodium Chloride 20 ml 04/20/25 11:09 Central Line Flush IV PUSH PRN PRN after blood draws Radiology Results: ITS Impressions Head CT 04/19/25 17:49 IMPRESSION: No acute intracranial process. Cervical Spine CT 04/19/25 17:52 IMPRESSION: No acute fracture or traumatic malalignment in the cervical spine. Chest X-Ray 04/19/25 18:03 IMPRESSION: No acute cardiopulmonary process. Hip/Pelvis X-Ray 04/19/25 18:05 IMPRESSION: No definite fracture or hardware related complication, however examination is severely limited by difficulty with positioning. If there is persistent pain or clinical suspicion of injury is high, consider CT of the pelvis for further evaluation. Venous Doppler Study 04/19/25 18:09 IMPRESSION: Right popliteal vein not adequately visualized. Otherwise patent right lower extremity veins. No evidence of deep venous thrombosis. Labs Labs: Laboratory Results - last 24 hr 04/22/25 04/22/25 04/22/25 11:13 18:07 23:55 WBC RBC Hgb Hct MCV MCH MCHC RDW Plt Count MPV Sodium Potassium Chloride Carbon Dioxide Anion Gap BUN Creatinine Estim Creat Clear Calc Estimated GFR Glucose POC Capillary Glucose 72 110 H 86 Calcium Phosphorus Magnesium Total Bilirubin AST ALT Alkaline Phosphatase Total Protein Albumin 04/23/25 04:57 WBC 8.5 RBC 3.29 L Hgb 8.5 L Hct 28.1 L MCV 85.4 MCH 25.8 L MCHC 30.2 L RDW 24.7 H Plt Count 253 MPV 9.5 Sodium 139 Potassium 3.7 Chloride 107 Carbon Dioxide 21 L Anion Gap 11 BUN 66 H Creatinine 7.13 H Estim Creat Clear Calc 5 Estimated GFR 6 L Glucose 79 POC Capillary Glucose Calcium 7.5 L Phosphorus 4.8 H Magnesium 2.1 Total Bilirubin 0.5 AST 27 ALT 12 Alkaline Phosphatase 96 Total Protein 4.8 L Albumin 2.2 L Quality VTE Prophylaxis VTE prophylaxis: pharmacologic ordered
[2025-04-23] MEDS: DEXTROSE 5% 1,000 ML 1,000 ML 25 ML IV CONT (11:05)
--- NOTE | 2025-04-23 11:43 | PCNFU ---
Nutrition Follow-Up Complete: Severe Protein Calorie Malnutrition as related to increased protein energy intake with increased protein energy needs in setting of chronic disease as evidenced by minimal oral intake > 1-2 months; severe subcutaneous fat loss (orbital fat pads) and severe muscle wasting (temporalis, clavicle). Goal: Meet estimated nutritional needs. Patient has limited progress towards goal. We will continue current goal. Pt current nutrition is Heart Healthy/Pureed, Level 4 with Ensure Enlive and Nutritional Ice Cream TID. Last recorded weight is 48.5 kg, up from 43.7 kg on admit. Bowel Motility: Last reported BM 04/23 Labs Reviewed:Cr 7.13, BUN 66 Meds Noted:Levophed, Dextrose, Midodrine Skin: Left AKA Additional Notes: Patient remains on oral diet with assist from nursing. Breakfast today, 1/2 bowl oatmeal, 100% milk and 1/2 bowl of nutritional ice cream. Ensure Enlive providing an additional 350 kcal and 20 gm protein, Nutritional Ice Cream 300 kcal and 9 gm protein. PO intake encouraged. RD will monitor weight, labs, skin, diet orders, meds every 3 days.
[2025-04-23 12:10] LABS: Glucose Point of Care 99 mg/dl (65-105)
--- NOTE | 2025-04-23 15:27 | P.PNCROSS_ITS ---
Event Note Event Note Event Note: Discussed with Trey Pickett, patient's son, updated him again with patient's con dition, septic shock requiring blood pressure support medications/pressors, acute on chronic kidney disease, cellulitis along with chronic medical problems, conveyed the preprint analyst's message regarding not being a candidate for dialysis at this time. I answered all his questions. He does understand and patient is chronically ill, her living conditions are deplorable, and given her quality of life wants to proceed to make her comfort measures and talk to hospice team. He wants to discuss this with his brother and his other family members and would like to make a decision on 04/24/2025. Care coordination is going to be discussing with him regarding hospice options, skilled nursing options Bedside RNs Reyna and Lili were also present for the meeting in the conference room. I discussed with him regarding code status and he was agreeable to change it to do not resuscitate which was entered in the chart.
--- NOTE | 2025-04-23 16:58 | PM.IMPN ---
Progress Note: A&P Assessment and Plan (1) Septic shock: Code(s): A41.9 - Sepsis, unspecified organism; R65.21 - Severe sepsis with septic shock Status: Acute Assessment and Plan: Sepsis secondary to UTI and right lower extremity cellulitis. Patient was recently diagnosed with MSSA bacteremia and was discharged on p.o. antibiotics. Unsure of the compliance. - Procalcitonin 1.5 on admission Patient is currently on cefepime and linezolid Patient has had more than 4 L of fluid I will hold further IV fluids Patient was off Levophed but is back on at 1 mcg/min Off 25% albumin -at the time of admission, despite several attempts to physicians were unable to place central venous catheter. 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 PICC line was placed for better IV access to administer antibiotics and vasopressor -04/10/2025 and 04/19/2025 Repeat blood cultures are negative (2) Acute renal failure superimposed on stage 5 chronic kidney disease, not on chronic dialysis: Qualifiers: Acute renal failure type: with acute tubular necrosis Qualified Code(s): N17.0 - Acute kidney failure with tubular necrosis; N18.5 - Chronic kidney disease, stage 5 Code(s): N17.9 - Acute kidney failure, unspecified; N18.5 - Chronic kidney disease, stage 5 Status: Acute Assessment and Plan: Acute on chronic renal failure -Patient was discharged with creatinine of 4 and now presented with creatinine 9.75 on 04/19/25. . Recent workup has shown patient has severe medical renal disease - further fluids were held to minimize risk of volume overload - patient had refused dialysis in the past and again confirmed decision to the junior project coordinator and to Dr Titus on 04/21. Wet on 04/22 she stated she is okay with dialysis when asked her if she understood what dialysis is, she did not comprehend. -She is receiving bicarb infusion and tablet for metabolic acidosis -discussed the junior project coordinator, patient may not be a candidate for dialysis due to the recent infection states she has had and difficulty of placing a dialysis catheter monitor urine output electrolytes and creatinine (3) Metabolic acidosis: Code(s): E87.20 - Acidosis, unspecified Status: Acute Assessment and Plan: Continue p.o. bicarb (4) UTI (urinary tract infection): Code(s): N39.0 - Urinary tract infection, site not specified Status: Acute Assessment and Plan: See above (5) Cellulitis of right leg: Code(s): L03.115 - Cellulitis of right lower limb Status: Acute Assessment and Plan: See above (6) MSSA bacteremia: Code(s): R78.81 - Bacteremia; B95.61 - Methicillin susceptible Staphylococcus aureus infection as the cause of diseases classified elsewhere Status: Acute Assessment and Plan: See above (7) Ulcer of right leg: Qualifiers: Non-pressure ulcer stage: unspecified non-pressure ulcer stage Qualified Code(s): L97.919 - Non-pressure chronic ulcer of unspecified part of right lower leg with unspecified severity Code(s): L97.919 - Non-pressure chronic ulcer of unspecified part of right lower leg with unspecified severity Status: Chronic Assessment and Plan: Appreciate wound care team evaluation and recommendation (8) Severe protein-calorie malnutrition: Code(s): E43 - Unspecified severe protein-calorie malnutrition Status: Acute Assessment and Plan: Patient's p.o. intake has not been adequate. she eats only 10-20% of her plate. Patient has been hypoglycemic - 04/22: Was started on D5 with bicarb at 50 to prevent hypoglycemia. -DC bicarb infusion and will start D5 at 25 mL/hour for hypoglycemia -according to Dr. Titus, patient has been eating only 20% off her meals. -dietitian has been consulted for evaluation, supplements added (9) Acute hyperkalemia: Code(s): E87.5 - Hyperkalemia Status: Acute (10) Hypothermia due to non-environmental cause: Code(s): R68.0 - Hypothermia, not associated with low environmental temperature Status: Acute (11) Cellulitis of lower leg: Code(s): L03.119 - Cellulitis of unspecified part of limb Status: Acute Plan patient came to the ER and EMS reported poor living condition and patient with wound and bruising with animal hair per nursing, staff, patient was sent to ER after she fell from her wheel chair unfortunately patient in unable to provibe any ROS or history, today patient is more awake, stats has no complaints, patient is found to have CKD and needs of HD however patient has refused it, again today patient was seen by her junior project coordinator and patient is refusing dialysis, upon arrival her BUN and Scr was 77/9.75 and patient been hydrated with IVF and now it is 66/7.3 patient remains at risk for FINANCE LEAD/dialysis remain clinically stable, her potassium is 3.7, upon arrival patient was also in metabolic acidosis and patient is treated with bicarb and its metabolic CO2 is improving. patient is seen by junior project coordinator and gamma facilities operator and appreciate. today healthcare liaison discuss with family and family is considering hospice care for the patient DVT prophylaxis -heparin Stress ulcer prophylaxis -not indicated Nutrition: Heart healthy diet Code Status - Full Code Subjective Date/time seen: 04/23/25 16:58 Interval history: Chief Complaint: Fall from wheelchair H&P-Narrative: 69-year-old female with a past medical history of chronic anemia, lymphedema of the right lower extremity, prior left [id number] amputation, essential hypertension, depression and anxiety and chronic kidney disease stage 5, and recent hospitalization with severe anemia, MSSA bacteremia and ulcer with cellulitis of the right knee who presented to the ER via EMS after having a fall out of her wheelchair. Source of information is from the ER records and past medical records patient is only alert oriented to her name at the time of my evaluation. Per ER records the patient's son called EMS after patient fell out of her wheelchair. She was reportedly not on the floor for very long. She was alert orient x2 per EMS. The patient had numerous scabs on her lower extremity which were covered in animal hair. Patient reportedly was found to have roaches on her at the home. Patient is diabetic and does not check her blood sugars at home. In the ER the patient was found to be profoundly hypothermic with an initial temperature of 92.2?. Her initial blood pressures were normal but quickly downtrended to the 80s and 90s systolic. She received 2 L of normal saline and 1.5 L of LR in remained hypotensive. Her blood pressures shortly after arrival to the ICU where his low as 69/45 after Gerson-Synephrine had already been started. I evaluated the patient down in the ER at which time the ER physician was trying to place a central line. Due to the patient's contractures and anatomy the only viable option for central line placement was the left IJ and after numerous attempts efforts were ceased. The patient was started on Gerson-Synephrine peripherally. White count was normal and hemoglobin was slightly increased from prior value of 9. Patient had mild hyperkalemia and acutely worsening creatinine from baseline of 4.5 up to 9. Serum bicarb was low at 8. Patient was initially started on Ancef for cellulitis but was switched to broad-spectrum antibiotic coverage with cefepime and vancomycin. Patient did have mildly elevated CK level in the ER. Patient had been admitted to the hospital 04/04/2025 through 04/12/2025 and was noted to have profound anemia with hemoglobin of 3.4. She received 3 units of packed red blood cells with improvement in her hemoglobin at that time her stool occult blood was negative. She was also found to have MSSA bacteremia with echocardiogram negative for evidence of vegetation with repeat blood cultures that were negative. Patient was initially treated with Rocephin and vancomycin but was switched to linezolid at discharge. It is unclear if the patient has been compliant with linezolid after discharge. She was supposed to stay on linezolid until 04/24/2025. Patient was evaluated by Nephrology during prior visit and was found to have chronic kidney disease with prior baseline less than 1 in 2022 with value on discharge of 4. She was noted to have an DOT positive indeterminate double-stranded DNA antibody, and ANCA negative, SPEP with poorly defined band possible M spike but normal urine protein electrophoresis. She had nephrotic range proteinuria and normal kappa lambda ratio. Her and complements were negative. Patient had previously refused hemodialysis. patient came to the ER and EMS reported poor living condition and patient with wound and bruising with animal hair per nursing, staff, patient was sent to ER after she fell from her wheel chair unfortunately patient in unable to provibe any ROS or history, today patient is more awake, stats has no complaints, patient is found to have CKD and needs of HD however patient has refused it, again today patient was seen by her junior project coordinator and patient is refusing dialysis, upon arrival her BUN and Scr was 77/9.75 and patient been hydrated with IVF and now it is 66/7.3 patient remains at risk for FINANCE LEAD/dialysis remain clinically stable, her potassium is 3.7, upon arrival patient was also in metabolic acidosis and patient is treated with bicarb and its metabolic CO2 is improving. patient is seen by junior project coordinator and gamma facilities operator and appreciate. today healthcare liaison discuss with family and family is considering hospice care for the patient Review of Systems Review of Systems: ROS unobtainable: Yes unobtainable due to medical condition and unobtainable due to mental status Exam Narrative: unable to fully examine as patient is contracte upper and lower extremities with bruising and sores Patient is comfortable, NAD HEENT: eyes are clear and none icteric Lower extremities: edema bruised and sores SKIN: nonjaundiced, bruised and sores Neuro: grossly intact. Objective Data Vital Signs Vital Signs: Vital Signs - 24 hr 04/22/25 18:00 04/22/25 18:00 04/22/25 18:00 Temperature 37.5 C Pulse Rate 64 65 65 Respiratory Rate 17 Blood Pressure 101/47 L 103/51 L Pulse Oximetry 98 Oxygen Delivery Fraction of Inspired Oxygen 04/22/25 20:00 04/22/25 20:00 04/22/25 20:00 Temperature 37.8 C H Pulse Rate 63 63 Respiratory Rate 17 Blood Pressure 100/46 L 100/46 L Pulse Oximetry 98 Oxygen Delivery Room Air Fraction of Inspired Oxygen 04/22/25 20:00 04/22/25 20:38 04/22/25 21:00 Temperature Pulse Rate 63 57 L 67 Respiratory Rate 20 Blood Pressure 122/56 L Pulse Oximetry 99 Oxygen Delivery Room Air Fraction of Inspired Oxygen 21 04/22/25 22:00 04/22/25 22:00 04/22/25 22:00 Temperature 37.5 C Pulse Rate 66 65 66 Respiratory Rate 17 Blood Pressure 105/51 L 105/51 L Pulse Oximetry 99 Oxygen Delivery Fraction of Inspired Oxygen 04/22/25 23:00 04/23/25 00:00 04/23/25 00:00 Temperature 37.2 C Pulse Rate 67 62 Respiratory Rate 17 Blood Pressure 97/50 L 104/53 L Pulse Oximetry 100 Oxygen Delivery Room Air Fraction of Inspired Oxygen 04/23/25 00:00 04/23/25 00:00 04/23/25 01:00 Temperature Pulse Rate 62 62 64 Respiratory Rate Blood Pressure 104/53 L 98/44 L Pulse Oximetry Oxygen Delivery Fraction of Inspired Oxygen 04/23/25 01:15 04/23/25 01:30 04/23/25 01:45 Temperature Pulse Rate 57 L 60 63 Respiratory Rate Blood Pressure 95/54 L 121/57 L 91/65 L Pulse Oximetry Oxygen Delivery Fraction of Inspired Oxygen 04/23/25 02:00 04/23/25 02:00 04/23/25 02:15 Temperature 36.8 C Pulse Rate 65 65 60 Respiratory Rate 16 Blood Pressure 99/47 L 73/42 L Pulse Oximetry 100 Oxygen Delivery Fraction of Inspired Oxygen 04/23/25 02:30 04/23/25 02:45 04/23/25 03:45 Temperature Pulse Rate 61 60 61 Respiratory Rate Blood Pressure 126/52 L 118/62 119/67 Pulse Oximetry Oxygen Delivery Fraction of Inspired Oxygen 04/23/25 04:00 04/23/25 04:00 04/23/25 04:00 Temperature 36.1 C L Pulse Rate 57 L 55 L Respiratory Rate 14 Blood Pressure 112/62 Pulse Oximetry 98 Oxygen Delivery Room Air Fraction of Inspired Oxygen 04/23/25 04:45 04/23/25 05:00 04/23/25 06:00 Temperature Pulse Rate 66 59 L 55 L Respiratory Rate Blood Pressure 105/43 L 120/48 L 98/50 L Pulse Oximetry Oxygen Delivery Fraction of Inspired Oxygen 04/23/25 06:00 04/23/25 06:00 04/23/25 08:00 Temperature 36.4 C L 36.4 C L Pulse Rate 55 L 55 L 54 L Respiratory Rate 15 15 Blood Pressure 98/47 L 99/53 L Pulse Oximetry 99 98 Oxygen Delivery Fraction of Inspired Oxygen 04/23/25 08:00 04/23/25 08:00 04/23/25 08:00 Temperature Pulse Rate 53 L 60 Respiratory Rate Blood Pressure 99/53 L Pulse Oximetry Oxygen Delivery Room Air Fraction of Inspired Oxygen 04/23/25 09:25 04/23/25 10:00 04/23/25 10:00 Temperature Pulse Rate 58 L 63 62 Respiratory Rate Blood Pressure 87/42 L 109/53 L Pulse Oximetry Oxygen Delivery Fraction of Inspired Oxygen 04/23/25 10:00 04/23/25 10:29 04/23/25 12:00 Temperature 36.8 C 37.2 C Pulse Rate 62 65 68 Respiratory Rate 16 15 Blood Pressure 109/53 L 109/54 L 82/45 L Pulse Oximetry 99 97 Oxygen Delivery Fraction of Inspired Oxygen 04/23/25 12:00 04/23/25 12:00 04/23/25 12:15 Temperature Pulse Rate 70 66 Respiratory Rate Blood Pressure 79/44 L Pulse Oximetry Oxygen Delivery Room Air Fraction of Inspired Oxygen 04/23/25 13:10 04/23/25 14:00 04/23/25 14:00 Temperature 37.7 C H Pulse Rate 63 62 68 Respiratory Rate 14 Blood Pressure 113/58 L 94/45 L Pulse Oximetry 98 Oxygen Delivery Fraction of Inspired Oxygen 04/23/25 14:05 04/23/25 15:38 04/23/25 16:00 Temperature 37.8 C H Pulse Rate 70 68 68 Respiratory Rate 20 Blood Pressure 106/52 L 105/46 L 106/49 L Pulse Oximetry 99 Oxygen Delivery Fraction of Inspired Oxygen 04/23/25 16:00 Temperature Pulse Rate 68 Respiratory Rate Blood Pressure Pulse Oximetry Oxygen Delivery Fraction of Inspired Oxygen Intake/Output Intake/Output: Intake & Output 04/20/25 04/21/25 04/22/25 04/23/25 23:59 23:59 23:59 23:59 Intake Total 3028.1 1180.2 1188.6 2130.5 Output Total 150 450 250 200 Balance 2878.1 730.2 938.6 1930.5 Meds/Results Medications: Active Medications Generic Name Dose Route Start Last Admin Trade Name Freq PRN Reason Stop Dose Admin Acetaminophen 650 mg 04/19/25 22:52 Acetaminophen 325 Mg Tablet PO Q4H PRN Mild Pain (1-3) Or Fever Dextrose 12.5 gm 04/20/25 01:24 04/22/25 05:34 Dextrose 50% 25 Gm/50 Ml Syringe IV PUSH 12.5 gm PRN PRN Administration Hypoglycemia Protocol Epoetin Sav-epbx 10,000 units 04/20/25 12:45 04/23/25 09:15 Epoetin Sav-Epbx 10,000 Units/Ml Vial SUB-Q 10,000 units [facility] Administration Glucagon 1 mg 04/20/25 01:24 Glucagon For Inj 1 Mg Vial IM PRN PRN Hypoglycemia Protocol Glucose 15 gm 04/20/25 01:24 Glucose Oral Gel 15 Gm Of Glucse In 37.5 Gm Tube PO PRN PRN Hypoglycemia Protocol Heparin Sodium (Porcine) 5,000 units 04/20/25 09:00 04/23/25 09:15 Heparin Sodium 5,000 Units/Ml Vial SUB-Q 5,000 units Q12HR LISANDRA Administration Dextrose 1,000 mls @ 100 mls/hr 04/20/25 01:24 Dextrose 5% 1,000 Ml IVPB PRN PRN Hypoglycemia Protocol Linezolid 600 mg in 300 mls @ 300 mls/hr 04/20/25 09:45 04/23/25 10:15 Zyvox IVPB Infused Q12HR LISANDRA Infusion Norepinephrine Bitartrate 8 mg in 250 mls @ 1.875 mls/hr 04/22/25 14:00 04/23/25 15:38 Levophed 8 Mg/D5w 250 Ml IV CONT 1 mcg/min .Q24H LISANDRA 1.88 mls/hr Titration Protocol 1 MCG/MIN Dextrose 1,000 mls @ 25 mls/hr 04/23/25 10:00 04/23/25 11:05 Dextrose 5% 1,000 Ml IV CONT 25 mls/hr .Q24H LISANDRA Administration Ceftriaxone Sodium 1 gm in 50 mls @ 100 mls/hr 04/23/25 10:25 04/23/25 11:35 Rocephin 1 Gm/Ns 50 Ml IVPB Infused QAM LISANDRA Infusion Midodrine 10 mg 04/21/25 09:00 04/23/25 14:04 Midodrine Hcl 10 Mg Tablet PO 10 mg TID LISANDRA Administration Sodium Bicarbonate 1,300 mg 04/20/25 09:00 04/23/25 09:16 Sodium Bicarbonate Tab 650 Mg Tablet PO 1,300 mg BID LISANDRA Administration Sodium Chloride 10 ml 04/20/25 14:00 04/23/25 14:06 Central Line Flush IV PUSH 10 ml Q8HR LISANDRA Administration Sodium Chloride 10 ml 04/20/25 11:09 Central Line Flush IV PUSH PRN PRN with TPN bag changes Sodium Chloride 20 ml 04/20/25 11:09 Central Line Flush IV PUSH PRN PRN after blood draws Radiology Results: ITS Impressions Head CT 04/19/25 17:49 IMPRESSION: No acute intracranial process. Cervical Spine CT 04/19/25 17:52 IMPRESSION: No acute fracture or traumatic malalignment in the cervical spine. Chest X-Ray 04/19/25 18:03 IMPRESSION: No acute cardiopulmonary process. Hip/Pelvis X-Ray 04/19/25 18:05 IMPRESSION: No definite fracture or hardware related complication, however examination is severely limited by difficulty with positioning. If there is persistent pain or clinical suspicion of injury is high, consider CT of the pelvis for further evaluation. Venous Doppler Study 04/19/25 18:09 IMPRESSION: Right popliteal vein not adequately visualized. Otherwise patent right lower extremity veins. No evidence of deep venous thrombosis. Labs Labs: Laboratory Results - last 24 hr 04/22/25 04/22/25 04/23/25 18:07 23:55 04:57 WBC 8.5 RBC 3.29 L Hgb 8.5 L Hct 28.1 L MCV 85.4 MCH 25.8 L MCHC 30.2 L RDW 24.7 H Plt Count 253 MPV 9.5 Sodium 139 Potassium 3.7 Chloride 107 Carbon Dioxide 21 L Anion Gap 11 BUN 66 H Creatinine 7.13 H Estim Creat Clear Calc 5 Estimated GFR 6 L Glucose 79 POC Capillary Glucose 110 H 86 Calcium 7.5 L Phosphorus 4.8 H Magnesium 2.1 Total Bilirubin 0.5 AST 27 ALT 12 Alkaline Phosphatase 96 Total Protein 4.8 L Albumin 2.2 L 04/23/25 12:08 WBC RBC Hgb Hct MCV MCH MCHC RDW Plt Count MPV Sodium Potassium Chloride Carbon Dioxide Anion Gap BUN Creatinine Estim Creat Clear Calc Estimated GFR Glucose POC Capillary Glucose 99 Calcium Phosphorus Magnesium Total Bilirubin AST ALT Alkaline Phosphatase Total Protein Albumin Quality VTE Prophylaxis VTE prophylaxis: pharmacologic ordered
[2025-04-23 18:14] LABS: Glucose Point of Care 90 mg/dl (65-105)
[2025-04-24] VITALS (14 sets, daily range): BP systolic 87–150; BP diastolic 39–67; PULSE 57–74; RESP 15–21; TEMP 36.7–37.5; O2SAT 97–99
[2025-04-24 00:10] LABS: Glucose Point of Care 87 mg/dl (65-105)
[2025-04-24] MEDS: CENTRAL LINE FLUSH 10 ML IV PUSH (05:29)
[2025-04-24 06:19] LABS: Basophils Percent Auto 0.4 % (0.2-1.2); Eosinophils Absolute Auto 0.6 K/mm3 (0-0.3); Eosinophils Percent Auto 8.9 % (0-4.4); Hematocrit 27.4 % (37.0-47.0); Hemoglobin 8.5 g/dL (12.0-15.0); Immature Granulocyte Absolute 0.03 K/mm3 (0.00-0.031); Immature Granulocyte Percent A 0.4 % (0-0.5); Lymphocytes Absolute Auto 2.26 K/mm3 (0.9-3.2); Mean Corpuscular Hemoglobin 26.6 pg (26-34); Mean Corpuscular Volume 85.9 fl (80-100); Mean Platelet Volume 9.1 fl (7.4-10.4); Monocytes Absolute Auto 0.5 K/mm3 (0.1-0.6); Monocytes Percent Auto 6.4 % (2.6-8.5); Neutrophils Absolute Auto 3.7 K/mm3 (1.3-6.7); Neutrophils Percent Auto 51.9 % (45.5-73.1); Platelet Count Result 170 k/mm3 (150-375); Red Blood Count 3.19 M/mm3 (4.2-5.4); Red Cell Distribution Width 24.7 % (11.5-14.5); White Blood Count 7.1 K/mm3 (4.5-10.0)
[2025-04-24 06:32] LABS: Alanine Aminotransferase 12 U/L (6-35); Albumin Level 2.4 g/dL (3.5-5.1); Alkaline Phosphatase 98 U/L (38-126); Anion Gap 12 mmol/L (4-12); Aspartate Amino Transferase 25 U/L (14-36); Bilirubin,Total 0.5 mg/dL (0.2-1.3); Blood Urea Nitrogen 68 mg/dL (7-17); Calcium 8.2 mg/dL (8.4-10.2); Carbon Dioxide 22 mmol/L (22-30); Chloride 102 mmol/L (98-107); Estimated CRCL calculation 5 ml/min; Estimated Glomerular Filt Rate 6; Glucose 86 mg/dL (65-110); Phosphorus 5.8 mg/dL (2.5-4.5); Potassium 3.9 mmol/L (3.4-5.0); Sodium 136 mmol/L (137-145); Total Protein 5.1 g/dL (6.3-8.2)
[2025-04-24 06:56] LABS: Anisocytosis 2+; Hypochromasia 1+; Platelet Estimate Adequate (Adequate); Schistocytes None Seen
[2025-04-24] MEDS: MIDODRINE HCL 10 MG TABLET PO (07:40)
[2025-04-24] MEDS: SODIUM BICARBONATE TAB 650 MG TABLET 1300 MG PO (07:40)
--- NOTE | 2025-04-24 07:55 | WPDINTPN ---
Progress Note: A&P Assessment and Plan (1) Septic shock: Code(s): A41.9 - Sepsis, unspecified organism; R65.21 - Severe sepsis with septic shock Status: Acute Assessment and Plan: Sepsis secondary to UTI and right lower extremity cellulitis. Patient was recently diagnosed with MSSA bacteremia and was discharged on p.o. antibiotics. Unsure of the compliance. - Procalcitonin 1.5 on admission Patient is currently on cefepime and linezolid Patient has had more than 4 L of fluid since admission, currently off all IV fluid, encourage p.o. intake Patient was off Levophed but is back on at 2 mcg/min Off 25% albumin -at the time of admission, despite several attempts to physicians were unable to place central venous catheter. 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 PICC line was placed for better IV access to administer antibiotics and vasopressor -04/10/2025 and 04/19/2025 Repeat blood cultures are negative (2) Acute renal failure superimposed on stage 5 chronic kidney disease, not on chronic dialysis: Qualifiers: Acute renal failure type: with acute tubular necrosis Qualified Code(s): N17.0 - Acute kidney failure with tubular necrosis; N18.5 - Chronic kidney disease, stage 5 Code(s): N17.9 - Acute kidney failure, unspecified; N18.5 - Chronic kidney disease, stage 5 Status: Acute Assessment and Plan: Acute on chronic renal failure -Patient was discharged with creatinine of 4 on 04/12/2025 and now presented with creatinine 9.75 on 04/19/25. . Recent workup has shown patient has severe medical renal disease - further fluids were held to minimize risk of volume overload - patient had refused dialysis in the past and again confirmed decision to the sap business objects developer and to Dr Titus on 04/21. Wet on 04/22 she stated she is okay with dialysis when asked her if she understood what dialysis is, she did not comprehend. -She is receiving bicarb infusion and tablet for metabolic acidosis -monitor urine output electrolytes and creatinine 04/23: discussed the sap business objects developer, patient may not be a candidate for dialysis due due to her deconditioned and frail state, dialysis access may be a problem given the contracted state. Also discussed at length with Trey, patient's son was agreeable and the sap business objects developer's decision and declines dialysis for the patient. (3) Metabolic acidosis: Code(s): E87.20 - Acidosis, unspecified Status: Acute Assessment and Plan: Continue p.o. bicarb (4) UTI (urinary tract infection): Code(s): N39.0 - Urinary tract infection, site not specified Status: Acute Assessment and Plan: See above (5) Cellulitis of right leg: Code(s): L03.115 - Cellulitis of right lower limb Status: Acute Assessment and Plan: See above (6) MSSA bacteremia: Code(s): R78.81 - Bacteremia; B95.61 - Methicillin susceptible Staphylococcus aureus infection as the cause of diseases classified elsewhere Status: Acute Assessment and Plan: See above (7) Ulcer of right leg: Qualifiers: Non-pressure ulcer stage: unspecified non-pressure ulcer stage Qualified Code(s): L97.919 - Non-pressure chronic ulcer of unspecified part of right lower leg with unspecified severity Code(s): L97.919 - Non-pressure chronic ulcer of unspecified part of right lower leg with unspecified severity Status: Chronic Assessment and Plan: Appreciate wound care team evaluation and recommendation (8) Severe protein-calorie malnutrition: Code(s): E43 - Unspecified severe protein-calorie malnutrition Status: Acute Assessment and Plan: Patient's p.o. intake has not been adequate. she eats only 10-20% of her plate. Patient has been hypoglycemic - 04/22: Was started on D5 with bicarb at 50 to prevent hypoglycemia. -DC bicarb infusion and will start D5 at 25 mL/hour for hypoglycemia -according to Dr. Titus, patient has been eating only 20% off her meals. -dietitian has been consulted for evaluation, supplements added Plan DVT prophylaxis -heparin Stress ulcer prophylaxis -not indicated Nutrition: Heart healthy diet Code Status - Full Code 04/21: After calling multiple times Dr Titus was able to speak to patient's son Trey who lives in [place]. He told me that he has not been in frequent contact with his mother and has left the family situation due to difficulty dealing with her and his brother. He states that Nidhi lives with Dc who he believes has behavioral issues including impulsiveness, aggressiveness and violent behavior. He agrees that patient has a poor living conditions at home and off only had lets her dogs sleep in bed with her and they are constantly licking and touching her legs that are infected. He states that he has told his mother multiple times that she needs to go to a retirement but patient has refused and he states that he cant take this anymore and does not want his own family to be affected by his mother and brother. He is willing to be part in decision making when it comes to disposition but he states that he is not going to take her to his home. 04/22: It is clear the patient has poor conditions at home and is malnourished with lack of proper care considering her physical disability, frequent infections and now worsening kidney failure. Dr. Titus spoke to Daria again today. She is adamant that she does not want to go to retirement. She wants to be full code and wants to to dialysis but does not know what that is and and whether that will involve traveling from home to a dialysis center 3 times a week. It is clear the patient does not have complete understanding of her medical problems and care and supportive care and treatment she needs. It is clear that it will not be able to be done at home. I am working with [employer] and will try to get hold off patient's other son who lives with her today and get more information to come up with future plans. we have also discussed option of hospice but IM again not sure patient fully understands all the ins and out of it at this time. 04/23: trish Arellano Care coordination discussed with son Trey will be coming to the hospital this afternoon, family meeting will be set. He agrees with no dialysis. Further plan of care to be discussed during family meeting 04/23: Discussed with Trey Pickett, patient's son, updated him again with patient's condition, septic shock requiring blood pressure support medications/pressors, acute on chronic kidney disease, cellulitis along with chronic medical problems, conveyed the sap business objects developer's message regarding not being a candidate for dialysis at this time. I answered all his questions. He does understand and patient is chronically ill, her living conditions are deplorable, and given her quality of life wants to proceed to make her comfort measures and talk to hospice team. He wants to discuss this with his brother and his other family members and would like to make a decision on 04/24/2025. Care coordination is going to be discussing with him regarding hospice options, retirement options Bedside RNs Reyna and Lili were also present for the meeting in the conference room. I discussed with him regarding code status and he was agreeable to change it to do not resuscitate which was entered in the chart. Total Critical Care Time - 34 minutes Due to a high probability of clinically significant, life threatening deterioration, the patient required my highest level of preparedness to intervene emergently and I personally spent this critical care time directly and personally managing the patient. This critical care time included obtaining a history; examining the patient; pulse oximetry; ordering and review of studies; arranging urgent treatment with development of a management plan; evaluation of patient's response to treatment; frequent reassessment; and discussions with other providers. It was exclusive of separately billable procedures and treating other patients and teaching time. Please see Assessment and Plan section and the rest of the note for further information on patient assessment and treatment This dictation may have been done utilizing a voice recognition system. Attempts have been made to correct errors. However, there may be uncorrected grammatical, spelling, and recognitions errors present. Subjective Date/time seen: 04/24/25 07:55 Interval history: 69-year-old female with a past medical history of chronic anemia, lymphedema of the right lower extremity, prior left [id number] amputation, essential hypertension, depression and anxiety and chronic kidney disease stage 5, and recent hospitalization with severe anemia, MSSA bacteremia and ulcer with cellulitis of the right knee who presented to the ER via EMS after having a fall out of her wheelchair. 04/24/2025: Patient seen and examined in the ICU, is awake, alert, oriented x3, him a term UA she is, the year and her date of . She did not know the president is. She denies any shortness of breath, abdominal pain, chest pain, nausea, vomiting, diarrhea at this time. Patient is afebrile, urine output remains low . Patient is afebrile, remains on Levophed at 2 mcg/min. Oral intake continues to be low. Review of Systems Review of Systems: All systems reviewed & are unremarkable except as noted in HPI and below ( HPI) Exam Narrative: General: Appears older than her age, frail, cachectic female laying in bed, in no acute distress Lungs/Chest: Scoliosis of the spine, decreased air entry at bases, otherwise clear to auscultation Cardiac: Irregularly irregular, rate controlled with intermittent bradycardia Abdomen: Hypoactive bowel sounds. Cachectic. Soft. NT. ND. 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, right limb has extensive edema, several wounds covered under dressing, area of redness, blisters with fluid, right knee is also contracted in flexion position : Velez in place Neurologic: Patient is awake alert and oriented x2, did not know the president but was able time and date of , she answers questions intermittently, PERRL MSK: Extensive scoliosis of spine and her neck is contracture towards the right side Objective Data Vital Signs Vital Signs: Vital Signs - 24 hr 04/23/25 08:00 04/23/25 08:00 04/23/25 08:00 Temperature 97.5 F L Pulse Rate 54 L 53 L 60 Respiratory Rate 15 Blood Pressure 99/53 L 99/53 L Pulse Oximetry 98 Oxygen Delivery 04/23/25 08:00 04/23/25 09:25 04/23/25 10:00 Temperature Pulse Rate 58 L 63 Respiratory Rate Blood Pressure 87/42 L 109/53 L Pulse Oximetry Oxygen Delivery Room Air 04/23/25 10:00 04/23/25 10:00 04/23/25 10:29 Temperature 98.2 F Pulse Rate 62 62 65 Respiratory Rate 16 Blood Pressure 109/53 L 109/54 L Pulse Oximetry 99 Oxygen Delivery 04/23/25 12:00 04/23/25 12:00 04/23/25 12:00 Temperature 98.9 F Pulse Rate 68 70 Respiratory Rate 15 Blood Pressure 82/45 L Pulse Oximetry 97 Oxygen Delivery Room Air 04/23/25 12:15 04/23/25 13:10 04/23/25 14:00 Temperature Pulse Rate 66 63 62 Respiratory Rate Blood Pressure 79/44 L 113/58 L Pulse Oximetry Oxygen Delivery 04/23/25 14:00 04/23/25 14:05 04/23/25 15:38 Temperature 99.9 F H Pulse Rate 68 70 68 Respiratory Rate 14 Blood Pressure 94/45 L 106/52 L 105/46 L Pulse Oximetry 98 Oxygen Delivery 04/23/25 16:00 04/23/25 16:00 04/23/25 16:00 Temperature 100.0 F H Pulse Rate 68 68 Respiratory Rate 20 Blood Pressure 106/49 L Pulse Oximetry 99 Oxygen Delivery Room Air 04/23/25 16:00 04/23/25 18:00 04/23/25 18:00 Temperature 100.0 F H Pulse Rate 69 72 72 Respiratory Rate 20 Blood Pressure 106/49 L 100/49 L Pulse Oximetry 99 Oxygen Delivery 04/23/25 18:00 04/23/25 20:00 04/23/25 20:00 Temperature 100.0 F H Pulse Rate 69 67 67 Respiratory Rate 20 Blood Pressure 100/49 L 102/48 L 102/48 L Pulse Oximetry 99 Oxygen Delivery 04/23/25 20:00 04/23/25 20:00 04/23/25 20:30 Temperature Pulse Rate 71 70 Respiratory Rate Blood Pressure 87/44 L Pulse Oximetry 99 Oxygen Delivery Room Air 04/23/25 20:45 04/23/25 22:00 04/23/25 22:00 Temperature 98.7 F Pulse Rate 63 70 70 Respiratory Rate 17 Blood Pressure 133/58 L 109/61 109/61 Pulse Oximetry 98 Oxygen Delivery 04/23/25 22:00 04/24/25 00:00 04/24/25 00:00 Temperature 99.0 F Pulse Rate 70 69 Respiratory Rate 21 H Blood Pressure 115/61 Pulse Oximetry 99 99 Oxygen Delivery Room Air 04/24/25 00:00 04/24/25 00:00 04/24/25 00:45 Temperature Pulse Rate 69 68 68 Respiratory Rate Blood Pressure 115/61 96/46 L Pulse Oximetry Oxygen Delivery 04/24/25 01:00 04/24/25 01:45 04/24/25 02:00 Temperature Pulse Rate 71 73 74 Respiratory Rate Blood Pressure 132/55 L 134/64 117/61 Pulse Oximetry Oxygen Delivery 04/24/25 02:00 04/24/25 02:00 04/24/25 04:00 Temperature 99.2 F 99.5 F Pulse Rate 74 74 71 Respiratory Rate 21 H 20 Blood Pressure 117/61 115/57 L Pulse Oximetry 98 99 Oxygen Delivery 04/24/25 04:00 04/24/25 04:00 04/24/25 04:00 Temperature Pulse Rate 71 72 Respiratory Rate Blood Pressure 115/57 L Pulse Oximetry 99 Oxygen Delivery Room Air 04/24/25 05:05 04/24/25 05:15 04/24/25 06:00 Temperature 98.1 F Pulse Rate 66 58 L 58 L Respiratory Rate 17 Blood Pressure 87/44 L 99/50 L 115/67 Pulse Oximetry 98 Oxygen Delivery 04/24/25 06:00 04/24/25 06:00 04/24/25 06:50 Temperature Pulse Rate 58 L 58 L 57 L Respiratory Rate Blood Pressure 115/67 150/56 H Pulse Oximetry Oxygen Delivery Intake/Output Intake/Output: Intake & Output 04/21/25 04/22/25 04/23/25 04/24/25 23:59 23:59 23:59 23:59 Intake Total 1180.2 1188.6 2495.8 258.2 Output Total 450 250 550 275 Balance 730.2 938.6 1945.8 -16.8 Meds/Results Medications: Active Medications Generic Name Dose Route Start Last Admin Trade Name Freq PRN Reason Stop Dose Admin Acetaminophen 650 mg 04/19/25 22:52 Acetaminophen 325 Mg Tablet PO Q4H PRN Mild Pain (1-3) Or Fever Dextrose 12.5 gm 04/20/25 01:24 04/22/25 05:34 Dextrose 50% 25 Gm/50 Ml Syringe IV PUSH 12.5 gm PRN PRN Administration Hypoglycemia Protocol Epoetin Sav-epbx 10,000 units 04/20/25 12:45 04/23/25 09:15 Epoetin Sav-Epbx 10,000 Units/Ml Vial SUB-Q 10,000 units TUTHSA@09 LISANDRA Administration Glucagon 1 mg 04/20/25 01:24 Glucagon For Inj 1 Mg Vial IM PRN PRN Hypoglycemia Protocol Glucose 15 gm 04/20/25 01:24 Glucose Oral Gel 15 Gm Of Glucse In 37.5 Gm Tube PO PRN PRN Hypoglycemia Protocol Heparin Sodium (Porcine) 5,000 units 04/20/25 09:00 04/23/25 20:35 Heparin Sodium 5,000 Units/Ml Vial SUB-Q 5,000 units Q12HR LISANDRA Administration Dextrose 1,000 mls @ 100 mls/hr 04/20/25 01:24 Dextrose 5% 1,000 Ml IVPB PRN PRN Hypoglycemia Protocol Linezolid 600 mg in 300 mls @ 300 mls/hr 04/20/25 09:45 04/23/25 21:35 Zyvox IVPB Infused Q12HR LISANDRA Infusion Norepinephrine Bitartrate 8 mg in 250 mls @ 3.75 mls/hr 04/22/25 14:00 04/24/25 06:50 Levophed 8 Mg/D5w 250 Ml IV CONT 2 mcg/min .Q24H LISANDRA 3.75 mls/hr Titration Protocol 2 MCG/MIN Dextrose 1,000 mls @ 25 mls/hr 04/23/25 10:00 04/23/25 11:05 Dextrose 5% 1,000 Ml IV CONT 25 mls/hr .Q24H LISANDRA Administration Ceftriaxone Sodium 1 gm in 50 mls @ 100 mls/hr 04/23/25 10:25 04/23/25 11:35 Rocephin 1 Gm/Ns 50 Ml IVPB Infused QAM LISANDRA Infusion Midodrine 10 mg 04/21/25 09:00 04/24/25 07:40 Midodrine Hcl 10 Mg Tablet PO 10 mg TID LISANDRA Administration Sodium Bicarbonate 1,300 mg 04/20/25 09:00 04/24/25 07:40 Sodium Bicarbonate Tab 650 Mg Tablet PO 1,300 mg BID LISANDRA Administration Sodium Chloride 10 ml 04/20/25 14:00 04/24/25 05:29 Central Line Flush IV PUSH 10 ml Q8HR LISANDRA Administration Sodium Chloride 10 ml 04/20/25 11:09 Central Line Flush IV PUSH PRN PRN with TPN bag changes Sodium Chloride 20 ml 04/20/25 11:09 Central Line Flush IV PUSH PRN PRN after blood draws Radiology Results: ITS Impressions Head CT 04/19/25 17:49 IMPRESSION: No acute intracranial process. Cervical Spine CT 04/19/25 17:52 IMPRESSION: No acute fracture or traumatic malalignment in the cervical spine. Chest X-Ray 04/19/25 18:03 IMPRESSION: No acute cardiopulmonary process. Hip/Pelvis X-Ray 04/19/25 18:05 IMPRESSION: No definite fracture or hardware related complication, however examination is severely limited by difficulty with positioning. If there is persistent pain or clinical suspicion of injury is high, consider CT of the pelvis for further evaluation. Venous Doppler Study 04/19/25 18:09 IMPRESSION: Right popliteal vein not adequately visualized. Otherwise patent right lower extremity veins. No evidence of deep venous thrombosis. Labs Labs: Laboratory Results - last 24 hr 04/23/25 04/23/25 04/24/25 12:08 18:12 00:05 WBC RBC Hgb Hct MCV MCH MCHC RDW Plt Count MPV Immature Gran % (Auto) Neut % (Auto) Lymph % (Auto) [place] % (Auto) Eos % (Auto) Baso % (Auto) Lymph # (Auto) [place] # (Auto) Eos # (Auto) Baso # (Auto) Abs Immat Gran (auto) Absolute Neuts (auto) Absolute Nucleated RBC Band Neutrophils % Nucleated RBC % Platelet Estimate Hypochromasia Anisocytosis Schistocytes Sodium Potassium Chloride Carbon Dioxide Anion Gap BUN Creatinine Estim Creat Clear Calc Estimated GFR Glucose POC Capillary Glucose 99 90 87 Calcium Phosphorus Magnesium Total Bilirubin AST ALT Alkaline Phosphatase Total Protein Albumin 04/24/25 06:07 WBC 7.1 RBC 3.19 L Hgb 8.5 L Hct 27.4 L MCV 85.9 MCH 26.6 MCHC 31.0 L RDW 24.7 H Plt Count 170 MPV 9.1 Immature Gran % (Auto) 0.4 Neut % (Auto) 51.9 Lymph % (Auto) 32.0 [place] % (Auto) 6.4 Eos % (Auto) 8.9 H Baso % (Auto) 0.4 Lymph # (Auto) 2.26 [place] # (Auto) 0.5 Eos # (Auto) 0.6 H Baso # (Auto) 0.0 Abs Immat Gran (auto) 0.03 Absolute Neuts (auto) 3.7 Absolute Nucleated RBC 0.000 Band Neutrophils % Not Reportable Nucleated RBC % 0.0 Platelet Estimate Adequate Hypochromasia 1+ Anisocytosis 2+ Schistocytes None seen Sodium 136 L Potassium 3.9 Chloride 102 Carbon Dioxide 22 Anion Gap 12 BUN 68 H Creatinine 7.31 H Estim Creat Clear Calc 5 Estimated GFR 6 L Glucose 86 POC Capillary Glucose Calcium 8.2 L Phosphorus 5.8 H Magnesium 2.0 Total Bilirubin 0.5 AST 25 ALT 12 Alkaline Phosphatase 98 Total Protein 5.1 L Albumin 2.4 L Quality VTE Prophylaxis VTE prophylaxis: pharmacologic ordered
[2025-04-24] MEDS: HEPARIN SODIUM 5,000 UNITS/ML VIAL 5000 UNITS SUB-Q (08:02)
[2025-04-24] MEDS: LINEZOLID 600 MG/300 ML 600 MG/300 ML SOLN 300 MG IVPB (08:02)
--- NOTE | 2025-04-24 10:26 | P.DS_ITS ---
DS: Admitting Diagnosis Discharge Date 04/24/25 Admitting Diagnosis Fall from wheelchair DS: Discharge Diagnosis Discharge Diagnosis (1) Septic shock: Code(s): A41.9 - Sepsis, unspecified organism; R65.21 - Severe sepsis with septic shock Status: Acute Assessment and Plan: Sepsis secondary to UTI and right lower extremity cellulitis. Patient was recently diagnosed with MSSA bacteremia and was discharged on p.o. antibiotics. Unsure of the compliance. - Procalcitonin 1.5 on admission Patient is currently on cefepime and linezolid Patient has had more than 4 L of fluid I will hold further IV fluids Patient was off Levophed but is back on at 1 mcg/min Off 25% albumin -at the time of admission, despite several attempts to physicians were unable to place central venous catheter. 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 PICC line was placed for better IV access to administer antibiotics and vasopressor -04/10/2025 and 04/19/2025 Repeat blood cultures are negative (2) Acute renal failure superimposed on stage 5 chronic kidney disease, not on chronic dialysis: Qualifiers: Acute renal failure type: with acute tubular necrosis Qualified Code(s): N17.0 - Acute kidney failure with tubular necrosis; N18.5 - Chronic kidney disease, stage 5 Code(s): N17.9 - Acute kidney failure, unspecified; N18.5 - Chronic kidney disease, stage 5 Status: Acute Assessment and Plan: Acute on chronic renal failure -Patient was discharged with creatinine of 4 and now presented with creatinine 9.75 on 04/19/25. . Recent workup has shown patient has severe medical renal disease - further fluids were held to minimize risk of volume overload - patient had refused dialysis in the past and again confirmed decision to the network communications engineer and to Dr Titus on 04/21. Wet on 04/22 she stated she is okay with dialysis when asked her if she understood what dialysis is, she did not comprehend. -She is receiving bicarb infusion and tablet for metabolic acidosis -discussed the network communications engineer, patient may not be a candidate for dialysis due to the recent infection states she has had and difficulty of placing a dialysis catheter monitor urine output electrolytes and creatinine (3) Metabolic acidosis: Code(s): E87.20 - Acidosis, unspecified Status: Acute Assessment and Plan: Continue p.o. bicarb (4) UTI (urinary tract infection): Code(s): N39.0 - Urinary tract infection, site not specified Status: Acute Assessment and Plan: See above (5) Cellulitis of right leg: Code(s): L03.115 - Cellulitis of right lower limb Status: Acute Assessment and Plan: See above (6) MSSA bacteremia: Code(s): R78.81 - Bacteremia; B95.61 - Methicillin susceptible Staphylococcus aureus infection as the cause of diseases classified elsewhere Status: Acute Assessment and Plan: See above (7) Ulcer of right leg: Qualifiers: Non-pressure ulcer stage: unspecified non-pressure ulcer stage Qualified Code(s): L97.919 - Non-pressure chronic ulcer of unspecified part of right lower leg with unspecified severity Code(s): L97.919 - Non-pressure chronic ulcer of unspecified part of right lower leg with unspecified severity Status: Chronic Assessment and Plan: Appreciate wound care team evaluation and recommendation (8) Severe protein-calorie malnutrition: Code(s): E43 - Unspecified severe protein-calorie malnutrition Status: Acute Assessment and Plan: Patient's p.o. intake has not been adequate. she eats only 10-20% of her plate. Patient has been hypoglycemic - 04/22: Was started on D5 with bicarb at 50 to prevent hypoglycemia. -DC bicarb infusion and will start D5 at 25 mL/hour for hypoglycemia -according to Dr. Titus, patient has been eating only 20% off her meals. -dietitian has been consulted for evaluation, supplements added (9) Acute hyperkalemia: Code(s): E87.5 - Hyperkalemia Status: Acute (10) Hypothermia due to non-environmental cause: Code(s): R68.0 - Hypothermia, not associated with low environmental temperature Status: Acute (11) Cellulitis of lower leg: Code(s): L03.119 - Cellulitis of unspecified part of limb Status: Acute Plan patient came to the ER and EMS reported poor living condition and patient with wound and bruising with animal hair per nursing, staff, patient was sent to ER after she fell from her wheel chair unfortunately patient in unable to provibe any ROS or history, today patient is more awake, stats has no complaints, patient is found to have CKD and needs of HD however patient has refused it, again today patient was seen by her network communications engineer and patient is refusing dialysis, upon arrival her BUN and Scr was 77/9.75 and patient been hydrated with IVF and now it is 66/7.3 patient remains at risk for OPERATIONAL TEST MECHANIC/dialysis remain clinically stable, her potassium is 3.7, upon arrival patient was also in metabolic acidosis and patient is treated with bicarb and its metabolic CO2 is improving. patient is seen by network communications engineer and financial advocate and appreciate. today healthcare customer service discuss with family and family is considering hospice care for the patient DVT prophylaxis -heparin Stress ulcer prophylaxis -not indicated Nutrition: Heart healthy diet Code Status - Full Code DS: Summary Hospital Course Hospital Course: patient came to the ER and EMS reported poor living condition and patient with wound and bruising with animal hair per nursing, staff, patient was sent to ER after she fell from her wheel chair unfortunately patient in unable to provide any ROS or history, today patient is more awake, stats has no complaints, patient is found to have CKD and needs of HD however patient has refused it, again today patient was seen by her network communications engineer and patient is refusing dialysis, upon arrival her BUN and Scr was 77/9.75 and patient been hydrated with IVF and now it is 66/7.3 patient remains at risk for OPERATIONAL TEST MECHANIC/dialysis remain clinically stable, her potassium is 3.7, upon arrival patient was also in metabolic acidosis and patient is treated with bicarb and its metabolic CO2 is improving. patient is seen by network communications engineer and financial advocate and appreciate. today healthcare customer service discuss with family and family is considering hospice care for the patient. will discharge patient today and will be admitted under hospice care today. Time Spent with Patient Time attestation: Total time spent providing and/or coordinating discharge services: DS: Data Data Completed and Pending Labs on day of discharge: Labs from last 24 hours 04/24/25 04/24/25 04/23/25 06:07 00:05 18:12 WBC 7.1 RBC 3.19 L Hgb 8.5 L Hct 27.4 L MCV 85.9 MCH 26.6 MCHC 31.0 L RDW 24.7 H Plt Count 170 MPV 9.1 Immature Gran % (Auto) 0.4 Neut % (Auto) 51.9 Lymph % (Auto) 32.0 Davie % (Auto) 6.4 Eos % (Auto) 8.9 H Baso % (Auto) 0.4 Lymph # (Auto) 2.26 Davie # (Auto) 0.5 Eos # (Auto) 0.6 H Baso # (Auto) 0.0 Abs Immat Gran (auto) 0.03 Absolute Neuts (auto) 3.7 Absolute Nucleated RBC 0.000 Band Neutrophils % Not Reportable Nucleated RBC % 0.0 Platelet Estimate Adequate Hypochromasia 1+ Anisocytosis 2+ Schistocytes None seen Sodium 136 L Potassium 3.9 Chloride 102 Carbon Dioxide 22 Anion Gap 12 BUN 68 H Creatinine 7.31 H Estim Creat Clear Calc 5 Estimated GFR 6 L Glucose 86 POC Capillary Glucose 87 90 Calcium 8.2 L Phosphorus 5.8 H Magnesium 2.0 Total Bilirubin 0.5 AST 25 ALT 12 Alkaline Phosphatase 98 Total Protein 5.1 L Albumin 2.4 L 04/23/25 12:08 WBC RBC Hgb Hct MCV MCH MCHC RDW Plt Count MPV Immature Gran % (Auto) Neut % (Auto) Lymph % (Auto) Davie % (Auto) Eos % (Auto) Baso % (Auto) Lymph # (Auto) Davie # (Auto) Eos # (Auto) Baso # (Auto) Abs Immat Gran (auto) Absolute Neuts (auto) Absolute Nucleated RBC Band Neutrophils % Nucleated RBC % Platelet Estimate Hypochromasia Anisocytosis Schistocytes Sodium Potassium Chloride Carbon Dioxide Anion Gap BUN Creatinine Estim Creat Clear Calc Estimated GFR Glucose POC Capillary Glucose 99 Calcium Phosphorus Magnesium Total Bilirubin AST ALT Alkaline Phosphatase Total Protein Albumin Preliminary micro results at discharge 04/19/25 17:24 Blood Culture - Preliminary Blood 04/19/25 17:24 Blood Culture - Preliminary Blood Discharge Plan Discharge Attending physician on discharge: Douglas Polo Consulting providers: Dante Titus; Gustavo Melo; Jesse Wong; Maci Christian; Mary Ann Laurent; Ronald Ayala; Nacho Cee Discharging Clinician: Chelsea Irene Patient Disposition: Hospice - Home Activity: as tolerated Diet: as tolerated Discharge Instructions: patient is being discharge and will be admitted under hospice care Patient Instructions: Antibiotic Form, Failure to Thrive (DC), Cellulitis (GEN), Acute Hypothermia (DC), Altered Mental Status (GEN) Patient Language: Ethiopian Stand Alone Forms: General Discharge Information Discharge Medications: No Action sodium bicarbonate 650 mg Tablet 1,300 mg PO BID 30 Days Qty: 120 1RF linezolid 600 mg tablet 600 mg PO Q12H 11 Days Qty: 22 0RF Rx Instructions: Start the morning of 04/13. Take this twice daily, once in the morning and once in the evening. losartan 50 mg tablet 50 mg PO DAILY Qty: 90 1RF acetaminophen [Mapap (acetaminophen)] 325 mg Tablet 650 mg PO Q4H PRN (Reason: Mild Pain (1-3) Or Fever) Qty: 0 0RF Silver-Sept 200 mcg/gram Gel 1 applic topical DAILY 30 Days Qty: 0 0RF Patient Comments: apply to right knee Date of admission: 04/20/25 07:22 Primary Care Provider: Santhosh,Tyler Arias Admitting Provider: Douglas Polo Attending physician on admission: Chelsea Irene Condition: Stable
--- NOTE | 2025-04-24 11:33 | PC.NURSE ---
Patient transitioning to hospice at this time. Levophed turned off at this time.
== END 2025-04-24 11:22 | disposition hospice, home (50) | DRG 871 ==
LOC: ANHED 18:21 → ANHIMU 19:26 → ANHICU 23:16
PROVIDERS: Internal Medicine; Admitting Provider General Practice; Emergency Provider Emergency Medicine; PCP Family Medicine; Visit Provider Family Medicine
DX: A41.9 Sepsis, unspecified organism (principal); E43 Unspecified severe protein-calorie malnutrition; R65.21 Severe sepsis with septic shock; G93.41 Metabolic encephalopathy; N17.9 Acute kidney failure, unspecified; N18.5 Chronic kidney disease, stage 5; L03.115 Cellulitis of right lower limb; E87.20 Acidosis, unspecified; Z68.1 Body mass index [BMI] 19.9 or less, adult; N39.0 Urinary tract infection, site not specified; L97.919 Non-pressure chronic ulcer of unspecified part of right lower leg with unspecified severity; I12.9 Hypertensive chronic kidney disease with stage 1 through stage 4 chronic kidney disease, or unspecified chronic kidney disease; J45.909 Unspecified asthma, uncomplicated; I89.0 Lymphedema, not elsewhere classified; D64.9 Anemia, unspecified; E87.5 Hyperkalemia; R68.0 Hypothermia, not associated with low environmental temperature; M24.552 Contracture, left hip; M24.551 Contracture, right hip; M19.90 Unspecified osteoarthritis, unspecified site; F41.9 Anxiety disorder, unspecified; F32.A Depression, unspecified; W05.0XXA Fall from non-moving wheelchair, initial encounter; Z51.5 Encounter for palliative care; Z96.653 Presence of artificial knee joint, bilateral; Z91.81 History of falling; Z89.612 Acquired absence of left leg above knee
CPT/HCPCS: 36415; 36569; 70450; 71045; 72125; 73521; 80053; 80069; 81001; 82550; 82565; 82803; 82948; 83605; 83735; 84100; 84145; 84443; 85025; 85027; 85610; 85652; 85730; 86140; 87040; 87641; 92610; 93005; 93971; 94640; 96361; 96365; 96367; 96375; 99285; A9270; C1751; G0378; J0612; J0613; J0690; J0692; J0696; J1644; J1815; J2003; J2020; J2371; J3370; J3475; J7030; J7050; J7070; J7120; P9045; P9047; Q5105

== ENCOUNTER 2025-04-24 11:25 | HOS | payer OTHER, MEDICARE, MEDICAID, SELFPAY ==
[2025-04-24 11:50] VITALS: BMI 18.0
--- NOTE | 2025-04-24 11:57 | PC.NURSE ---
This patient, Daria Pickett, was admitted to Intensive Care Unit-7 on inpatient hospice with [facility] at 1121. Patient/family oriented to hospital policies and general routines including ID bracelet, bed and alarms, visiting hours, pain management, procedures, bathroom and other care routines, personal items, smoking policy, room service/diet, and visiting hours. Information on how to activate the Rapid Response Team has been discussed. Patient/Family are encouraged to report perceived risks to care and to ask questions if they do not understand what they are told or what they should do.
--- NOTE | 2025-04-24 12:55 | PC.NURSE ---
Report given to LISA Jennings. Patient being transported to room 246.
[2025-04-24 13:15] VITALS: PULSE 64; RESP 16
[2025-04-24] MEDS: HYDROmorphone HCL/PF (*CRX) 50 MG in SODIUM CHLORIDE 0.9% IV 95 ML IV CONT (13:15)
--- NOTE | 2025-04-24 13:28 | PC.NURSE ---
This patient, Daria Pickett, was received from ICU on 04/24/25 at 1328. Patient/family oriented to unit policies and routines
--- OUTSIDE RECORDS SUMMARY | 2025-04-24 13:54 | XMS_ITS | Encounter Summary ---
Author Organization [facility] Facility Care Team Providers Care Install And Repair Technician Name Role Phone No, Physician Primary Care Provider Tyler Trevizo MD Primary Care Provider [phone] Christiano James MD Unavailable Tyler Trevizo MD Primary Care Provider [phone] Ailyn, Physician Primary Care Provider Tyler Trevizo MD Primary Care Provider [phone] Jarek Sol DPM Unavailable Encounter Details Date Type Department Care Team (Latest Contact Info) Description 02/11/2015 Orders Only [facility] CLINCONV ProviderLilly MD [address] [place] [address] Social History Tobacco Use Types Packs/Day Years Used Date Smoking Tobacco: Never Assessed Comments Unknown Sex and Gender Information Value Date Recorded Sex Assigned at Not on file Legal Sex Female 11:55 AM SEWING MACHINE OPERATOR Gender Identity Not on file Sexual Orientation Not on file documented as of this encounter Plan of Treatment Not on file documented as of this encounter Procedures Procedure Name Priority Date/Time Associated Diagnosis Comments CARDIOLOGY REPORT 01/14/2017 12: 00 AM SEWING MACHINE OPERATOR CARDIOLOGY REPORT 01/14/2017 12: 00 AM SEWING MACHINE OPERATOR documented in this encounter Results * CARDIOLOGY REPORT (01/14/2017 12:00 AM SEWING MACHINE OPERATOR) Anatomical Region Laterality Modality Other Narrative 01/14/2017 12:00 AM SEWING MACHINE OPERATOR Ordered by an unspecified provider. us Historical Provider CV CARDIAC SERVICES PROCE DURES Final Result * CARDIOLOGY REPORT (01/14/2017 12:00 AM SEWING MACHINE OPERATOR) Anatomical Region Laterality Modality Other Narrative 01/14/2017 12:00 AM SEWING MACHINE OPERATOR Ordered by an unspecified provider. us Historical Provider CV CARDIAC SERVICES PROCE DURES Final Result documented in this encounter Visit Diagnoses Not on filedocumented in this encounter Additional Health Concerns Infection Onset Date Last Indicated Resolved Time COVID: Suspected 07/25/2023 07/25/2023 07/25/2023 3:34 PM CDT COVID19 Comment:Airborne + Contact precautions. Gown, Gloves, N95, eye protection or goggles. Precautions 08/05/23. Contact Bell Maker if patient worsens. LISA Denny 08/02/23 07/25/2023 07/25/2023 08/05/2023 3:06 AM C DT MRSA Comment:Contact Precautions (gown and gloves) LISA Denny 08/02/23 07/26/2023 07/26/2023 01/22/2024 3:05 AM C DT COVID: Recovered Comment:Added based on recent COVID infection. 08/05/2023 08/05/2023 11/03/2023 3:[address] documented as of this encounter Care Teams Install And Repair Technician Relationship Specialty Start Date End Date No, Physician PCP - General 12/01/18 01/10/19 Tyler Trevizo MD [address] [facility] [address] [place] [address] PCP - General Emergency Medicine 02/22/19 08/27/19 Tyler Trevizo MD [address] [facility] [address] [place] [address] PCP - General 01/11/19 02/21/19 No, Physician PCP - General 01/02/20 02/07/20 Tyler Trevizo MD [address] [address] PCP - General Emergency Medicine 02/08/20 Christiano James MD [address] [address] Hand Hose Cutter Cardiology 02/22/19 Jarek Sol DPM [address] [place] [address] Podiatry 02/14/23 documented as of this encounter
--- OUTSIDE RECORDS SUMMARY | 2025-04-24 13:54 | XMS_ITS | Referral Summary ---
Author Organization [facility] Address [address] [place] [address] Phone Care Team Providers Care Bridge Leverman Name Role Phone Christiano James MD Unavailable [phone] Tyler Trevizo MD Primary Care Provider [phone] Jarek Sol DPM Unavailable Encounters Date Type Department Care Team Description 04/10/2025 Orders Only [facility] Cardiology [address] [place] [address] Piotr Wadsworth MD from Last [...] occupational therapy evaluated and recommend placement at residential facility for continued therapy services - Pain [...] occupational therapy evaluated and recommend placement at residential facility for continued therapy services - Pain [...] CDT): Impression: Patient is status post left byrmv-fxy-cjno amputation for extensive soft tissue infection and wounds. Patient's amputation site is healed however had 1 staple remaining to her incision line. Patient is currently working with a naphtha washing system operator for her left mnccn-oxx-xinc prosthetic. She is currently wearing a client relations specialist. Plan: Remaining stable was removed. Patient has a follow-up appointment in May for re-evaluation. Recommend patient to keep her appointment. 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 Incision is healing well. Half of the juliet were removed STONEWORK SUPERVISOR. The rest of the juliet were removed [...] Assessment & Plan (01/23/2022 11:40 PM PROGRAM WRITER): Pt has hx of revision of R [...] lasty on 03/07/[address] Holden at [facility] 08/24/2021 Overview (08/24/2021): Requirements Manager not specified in operative note; prosthetic sizes are as follows: Patellar - 31 round Femoral - 62.5 Tibial - 67 Presence of left artificial knee joint Overview (07/02/2021): Added automatically from request for surgery [id number] s/p right total hip arthroplasty on 11/29/2018 [...] appt with Dr Castano 02/24 @ 1300. Palmetto removed by industrial staff nurse - steri-strips in place Assessment & Plan [...] Assessment & Plan (01/23/2022 11:35 PM PROGRAM WRITER): Creatinine 1.20 (baseline 0.6) GFR 50 on [...] often do you attend chur ch or confucianism services? 1 to 4 times per year 07/26/2023 Do you belong to any clubs o r organizations such as taoism groups, unions, fraternal or athletic groups, or [...] file Legal Sex Female 11:55 AM PROGRAM WRITER Gender Identity Not on file Sexual Orientation [...] on file Medical Devices Implanted Type Area Requirements Manager Device Identifier Shelf Expiration Date Model / Serial / Lot Arthroplasty Bilatera l: Hip Arthroplasty Bilatera l: Knee [employer] [id number] Vanguard [id number] Anterior Stabilize Inlay Knee 0d Bearing - [id number] Implanted:Qty: 1 on 11/12/2021 by Craig Anton MD at [facility] [employer] [id number] 06/03/2023 [id number] / / [id number] [employer] [id number] Biomet Ascent Maxim Primary Lock Bar Knee Component Tibial Tray - [id number] Implanted:Qty: 1 on 11/12/2021 by Craig Anton MD at [facility] [employer] [id number] 10/20/2031 [id number] / / [id number] Procedures Procedure Name Priority Date/Time Associated Diagnosis [...] (04/25/2019 7:40 AM CDT) HepBsAg NONREACT NONREACTIVE [facility] Comment: Siemens CentaurXP using JETHRO (chemiluminescent immunoassay) technology. NONREACTIVE: IgM antibodies to Hepatitis B Surface antigen not detected. REACTIVE: IgM antibodies to Hepatitis B Surface antigen detected. Reactive results will be confirmed by neutralization testing. HBsAb qn 3.43 mIU/mL [facility] Comment: Siemens CentaurXP using JETHRO (chemiluminescent immunoassay) technology. 9.99 IU/L or less.....NONREACTIVE: IgM antibodies to Hepatitis B Surface antibody are not detected. 10.00 IU/L or greater..REACTIVE: IgM antibodies to Hepatitis B Surface antibody are detected. Hep B core IgM NONREACT NONREACTIVE [facility] Comment: Siemens CentaurXP using JETHRO (chemiluminescent immunoassay) technology. NONREACTIVE: IgM antibodies to Hepatitis B Core antigen not detected. EQUIVOCAL: IgM antibodies to Hepatitis B Core antigen may or may not be present. Obtain a new specimen and retest. REACTIVE: IgM antibodies to Hepatitis B Core antigen detected. Hep A IgM NONREACT NONREACTIVE [facility] Comment: Siemens CentaurXP using JETHRO (chemiluminescent immunoassay) technology. NONREACTIVE: IgM antibodies to Hepatitis A not detected. This does not exclude possibility of exposure to Hepatitis A or early acute infection. EQUIVOCAL:IgM antibodies to Hepatitis A may or may not be present. Suggest recollection and retest. REACTIVE: Antibodies to Hepatitis A detected. Hep C Ab NONREACT NONREACTIVE [facility] Comment: Siemens CentaurXP using JETHRO (chemiluminescent [...] MICROBIOLOGY - GENERAL O RDERABLES Final Result [facility] [address] [place] [address], [facility] [phone] from Last 3 Months or Most Recently Relevant to Health Maintenance Insurance IDPA MEDICARE [facility] Advance Directives For more information, please contact: [phone] Documents on File Type Date Recorded Patient Balling Head Tender Expl anation ADVANCE DIRECTIVE 01/25/2022 10:09 AM DAMIAN T - Phys Order for PT Preferences ADVANCE DIRECTIVE 08/14/2021 11:11 AM Aaliyah r of Respiratory Manager-Medical * Full Code (Latest Code Status on [...] 6:37 PM 02/12/2022 3:44 PM Care Teams Bridge Leverman Relationship Specialty Start Date End Date Tyler Trevizo MD [address] [address] PCP - General Emergency Medicine 02/08/20 Christiano James MD [address] [address] Acls Specialist Cardiology 02/22/19 Jarek Sol DPM [address] [place] [address] Podiatry 02/14/23
--- OUTSIDE RECORDS SUMMARY | 2025-04-24 13:54 | XMS_ITS | Encounter Summary ---
Author Organization [facility] Facility Care Team Providers Care Insecticide Mixer Name Role Phone No, Physician Primary Care Provider [phone] Tyler Trevizo MD Primary Care Provider [phone] Christiano James MD Unavailable [phone] Tyler Trevizo MD Primary Care Provider [phone] Ailyn, Physician Primary Care Provider [phone] Tyler Trevizo MD Primary Care Provider [phone] Jarek Sol DPM Unavailable Encounter Details Date Type Department Care Team (Latest Contact Info) Description 09/25/2018 Orders Only [facility] CLINCONV ProviderLilly MD [address] [place] [address] Social History Tobacco Use Types Packs/Day Years Used Date Smoking Tobacco: Never Assessed Comments Unknown Sex and Gender Information Value Date Recorded Sex Assigned at Not on file Legal Sex Female 11:55 AM HIDE COOKING OPERATOR Gender Identity Not on file Sexual Orientation Not on file documented as of this encounter Plan of Treatment Not on file documented as of this encounter Procedures Procedure Name Priority Date/Time Associated Diagnosis Comments PROCEDURE - RESULT 09/25/2018 12 :00 AM HIDE COOKING OPERATOR documented in this encounter Results * PROCEDURE - RESULT (09/25/2018 12:00 AM HIDE COOKING OPERATOR) Narrative 09/25/2018 12:00 AM HIDE COOKING OPERATOR Ordered by an unspecified provider. us Historical Provider Final Res ult documented in this encounter Visit Diagnoses Not on filedocumented in this encounter Additional Health Concerns Infection Onset Date Last Indicated Resolved Time COVID: Suspected 07/25/2023 07/25/2023 07/25/2023 3:34 PM CDT COVID19 Comment:Airborne + Contact precautions. Gown, Gloves, N95, eye protection or goggles. Precautions 08/05/23. Contact Green Belt if patient worsens. LISA Denny 08/02/23 07/25/2023 07/25/2023 08/05/2023 3:06 AM C DT MRSA Comment:Contact Precautions (gown and gloves) LISA Denny 08/02/23 07/26/2023 07/26/2023 01/22/2024 3:05 AM C DT COVID: Recovered Comment:Added based on recent COVID infection. 08/05/2023 08/05/2023 11/03/2023 3:[address] documented as of this encounter Care Teams Insecticide Mixer Relationship Specialty Start Date End Date Ailyn Physician PCP - General 12/01/18 01/10/19 Tyler Trevizo MD [address] [address] PCP - General Emergency Medicine 02/22/19 08/27/19 Tyler Trevizo MD [address] [address] PCP - General 01/11/19 02/21/19 Ailyn Physician PCP - General 01/02/20 02/07/20 Tyler Trevizo MD [address] [address] PCP - General Emergency Medicine 02/08/20 Christiano James MD [address] [facility] [address] [address] Early Childhood Specialist Cardiology 02/22/19 Jarek Sol DPM [address] [place] [address] Podiatry 02/14/23 documented as of this encounter
--- OUTSIDE RECORDS SUMMARY | 2025-04-24 13:54 | XMS_ITS | Encounter Summary ---
Author Organization [facility] Facility Care Team Providers Care Sat Act Instructor Name Role Phone No, Physician Primary Care Provider [phone] Tyler Trevizo MD Primary Care Provider [phone] Christiano James MD Unavailable [phone] Tyler Trevizo MD Primary Care Provider [phone] Ailyn, Physician Primary Care Provider [phone] Tyler Trevizo MD Primary Care Provider [phone] Jarek Sol DPM Unavailable Encounter Details Date Type Department Care Team (Latest Contact Info) Description 12/06/2014 Orders Only [facility] CLINCONV ProviderLilly MD [address] [place] [address] Social History Tobacco Use Types Packs/Day Years Used Date Smoking Tobacco: Never Assessed Comments Unknown Sex and Gender Information Value Date Recorded Sex Assigned at Not on file Legal Sex Female 11:55 AM PARKING LOT MANAGER Gender Identity Not on file Sexual Orientation Not on file documented as of this encounter Plan of Treatment Not on file documented as of this encounter Procedures Procedure Name Priority Date/Time Associated Diagnosis Comments SCAN - LABS 01/14/2017 12:00 AM PARKING LOT MANAGER documented in this encounter Results * SCAN - LABS (01/14/2017 12:00 AM PARKING LOT MANAGER) Narrative 01/14/2017 12:00 AM PARKING LOT MANAGER Ordered by an unspecified provider. us Historical Provider Final Res ult documented in this encounter Visit Diagnoses Not on filedocumented in this encounter Additional Health Concerns Infection Onset Date Last Indicated Resolved Time COVID: Suspected 07/25/2023 07/25/2023 07/25/2023 3:34 PM CDT COVID19 Comment:Airborne + Contact precautions. Gown, Gloves, N95, eye protection or goggles. Precautions 08/05/23. Contact Puller Over if patient worsens. LISA Denny 08/02/23 07/25/2023 07/25/2023 08/05/2023 3:06 AM C DT MRSA Comment:Contact Precautions (gown and gloves) LISA Denny 08/02/23 07/26/2023 07/26/2023 01/22/2024 3:05 AM C DT COVID: Recovered Comment:Added based on recent COVID infection. 08/05/2023 08/05/2023 11/03/2023 3:[address] documented as of this encounter Care Teams Sat Act Instructor Relationship Specialty Start Date End Date Ailyn Physician PCP - General 12/01/18 01/10/19 Tyler Trevizo MD [address] [address] PCP - General Emergency Medicine 02/22/19 08/27/19 Tyler Trevizo MD [address] [address] PCP - General 01/11/19 02/21/19 Ailyn Physician PCP - General 01/02/20 02/07/20 Tyler Trevizo MD [address] [address] PCP - General Emergency Medicine 02/08/20 Christiano James MD [address] [facility] [address] [address] Manager Of Quality Cardiology 02/22/19 Jarek Sol DPM [address] [place] [address] Podiatry 02/14/23 documented as of this encounter
--- OUTSIDE RECORDS SUMMARY | 2025-04-24 13:54 | XMS_ITS | CONTINUITY OF CARE DOCUMENT ---
Author Name stevo stevo Address Unknown Organization [facility] Address [address] [facility] [address] [place] [address] Phone [phone] Care Team Providers Care Aerial Survey Technician Name Role Phone Cristóbal Quinones MD Unavailable Cristóbal Quinones MD Unavailable YARY MATTHEWS MD Unavailable [phone] PROBLEMS Condition Status Date Provider Notes Cardiology examination active Cristóbal Quinones MD DVT active Cristóbal Quinones MD VENOUS INSUFFICIENCY active Cristóbal Quinones MD HYPERTENSION active Cristóbal Quinones MD ENCOUNTERS Date Type Provider Location Encounter Diag nosis - In-person encounter Office Visit Cristóbal Quinones MD [place] [facility] Cardiology examinationDVTVENOUS INSUFFICIENCYHYPERTENSION VITAL SIGNS Date [...] Payer name Policy type / Coverage type [place] red alliance party ID HUMANA GOLD PLUS O HMO [id number] [facility] Medicaid 1 [id number] ADVANCE DIRECTIVES Name Date DISCUSSED - NO DECISION MADE TREATMENT PLAN Date Name Performer [id number],C,on compressio n Cristóbal Quinones MD [id number],C,w ill put her on eliquis 5 mg [...]
--- OUTSIDE RECORDS SUMMARY | 2025-04-24 13:54 | XMS_ITS | Clinical Summary ---
Author Organization [facility] Address [address] [place] [address] Phone Care Team Providers Care Cant Hooker Name Role Phone Christiano James MD Unavailable [phone] Tyler Trevizo MD Primary Care Provider [phone] Jarek Sol DPM Unavailable [phone] Allergies Active Allergy Reactions Criticality Noted Date [...] occupational therapy evaluated and recommend placement at retirement facility for continued therapy services - Pain [...] occupational therapy evaluated and recommend placement at retirement facility for continued therapy services - Pain [...] CDT): Impression: Patient is status post left [id number] amputation for extensive soft tissue infection and wounds. Patient's amputation site is healed however had 1 staple remaining to her incision line. Patient is currently working with a degreasing solution reclaimer for her left rtabv-bac-cncu prosthetic. She is currently wearing a election judge. Plan: Remaining stable was removed. Patient has a follow-up appointment in May for re-evaluation. Recommend patient to keep her appointment. 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 Incision is healing well. 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 The rest of the juliet were [...] 12/07/2021 Assessment & Plan (01/23/2022 11:40 PM MOBILE APPLICATION DEVELOPER): Pt has hx of revision of R [...] lasty on 03/07/[address] Holden at [facility] 08/24/2021 Overview (08/24/2021): Welding Machine Operator Friction not specified in operative note; prosthetic sizes are as follows: Patellar - 31 round Femoral - 62.5 Tibial - 67 Presence of left artificial knee joint Overview (07/02/2021): Added automatically from request for surgery [id number] s/p right total hip arthroplasty on 11/29/2018 [...] appt with Dr Castano 02/24 @ 1300. Superior removed by staff consultant - steri-strips in place Assessment & Plan [...] 01/28/20 Assessment & Plan (01/23/2022 11:35 PM MOBILE APPLICATION DEVELOPER): Creatinine 1.20 (baseline 0.6) GFR 50 on 01/11/2022. Treated with IV fluids initially and subsequently discontinued as creatinine improved to 0.4. Avoid nephrotoxic drugs. Monitor labs Encounters Date Type Department Care Team Description 04/10/2025 Orders Only [facility] Medical Group Cardiology [address] [place] [address] Piotr Wadsworth MD from Last 3 Months [...] KNEE ARTHROPLASTY 03/07/[address] Mehdi Holden, [facility] TOTAL HIP ARTHROPLASTY 11/29/2018 Right TOTAL HIP [...] lasty on 03/07/[address] Holden at [facility] 08/24/2021 Welding Machine Operator Friction not specified i n operative note; prosthetic [...] often do you attend chur ch or scientologist services? 1 to 4 times per year [...] place to sleep or slept in a correction (including now)? No 07/26/2023 Personal Safety Answer Date Recorded Have you ever been in or are you currently in a harmful physical or emotional relationship or is someone making you feel afraid or unsafe? Denies 07/25/2023 Comments No Sex and Gender Information Value Date Recorded Sex Assigned at Not on file Legal Sex Female 11:55 AM MOBILE APPLICATION DEVELOPER Gender Identity Not on file Sexual Orientation [...] Completed 04/25/2019 Medical Devices Implanted Type Area Welding Machine Operator Friction Device Identifier Shelf Expiration Date Model / Serial / Lot Arthroplasty Bilatera l: Hip Arthroplasty Bilatera l: Knee [employer] [id number] Vanguard [id number] Anterior Stabilize Inlay Knee 0d Bearing - [id number] Implanted:Qty: 1 on 11/12/2021 by Craig Anton MD at [facility] [employer] [id number] 06/03/2023 [id number] / / [id number] [employer] [id number] Biomet Ascent Maxim Primary Lock Bar Knee Component Tibial Tray - [id number] Implanted:Qty: 1 on 11/12/2021 by Craig Anton MD at [facility] [employer] [id number] 10/20/2031 [id number] / / [id number] Procedures Procedure Name Priority Date/Time Associated Diagnosis [...] (04/25/2019 7:40 AM CDT) HepBsAg NONREACT NONREACTIVE [facility] Comment: Siemens CentaurXP using JETHRO (chemiluminescent immunoassay) technology. NONREACTIVE: IgM antibodies to Hepatitis B Surface antigen not detected. REACTIVE: IgM antibodies to Hepatitis B Surface antigen detected. Reactive results will be confirmed by neutralization testing. HBsAb qn 3.43 mIU/mL [facility] Comment: Siemens CentaurXP using JETHRO (chemiluminescent immunoassay) technology. 9.99 IU/L or less.....NONREACTIVE: IgM antibodies to Hepatitis B Surface antibody are not detected. 10.00 IU/L or greater..REACTIVE: IgM antibodies to Hepatitis B Surface antibody are detected. Hep B core IgM NONREACT NONREACTIVE [facility] Comment: Siemens CentaurXP using JETHRO (chemiluminescent immunoassay) technology. NONREACTIVE: IgM antibodies to Hepatitis B Core antigen not detected. EQUIVOCAL: IgM antibodies to Hepatitis B Core antigen may or may not be present. Obtain a new specimen and retest. REACTIVE: IgM antibodies to Hepatitis B Core antigen detected. Hep A IgM NONREACT NONREACTIVE [facility] Comment: Siemens CentaurXP using JETHRO (chemiluminescent immunoassay) technology. NONREACTIVE: IgM antibodies to Hepatitis A not detected. This does not exclude possibility of exposure to Hepatitis A or early acute infection. EQUIVOCAL:IgM antibodies to Hepatitis A may or may not be present. Suggest recollection and retest. REACTIVE: Antibodies to Hepatitis A detected. Hep C Ab NONREACT NONREACTIVE [facility] Comment: Siemens CentaurXP using JETHRO [...] MICROBIOLOGY - GENERAL O RDERABLES Final Result [facility] [address] [place] [address], [facility] [phone] from Last 3 Months or Most Recently Relevant to Health Maintenance Insurance IDPA MEDICARE [facility] AETNA [facility] MEDICARE [facility] Advance Directives For more information, please contact: [phone] Documents on File Type Date Recorded Patient Record Producer Expl anation ADVANCE DIRECTIVE 01/25/2022 10:09 AM DAMIAN T - Phys Order for PT Preferences ADVANCE DIRECTIVE 08/14/2021 11:11 AM Aaliyah r of Business Center Attendant-Medical * Full Code (Latest Code Status on [...] 6:37 PM 02/12/2022 3:44 PM Care Teams Cant Hooker Relationship Specialty Start Date End Date Tyler Trevizo MD [address] [address] PCP - General Emergency Medicine 02/08/20 Christiano James MD [address] [address] Comptroller Cardiology 02/22/19 Jarek Sol DPM [address] [place] [address] Podiatry 02/14/23
--- OUTSIDE RECORDS SUMMARY | 2025-04-24 13:54 | XMS_ITS | Encounter Summary ---
Author Organization [facility] Facility Care Team Providers Care Brand Ambassador Promotional Model Name Role Phone No, Physician Primary Care Provider [phone] Tyler Trevizo MD Primary Care Provider [phone] Christiano James MD Unavailable [phone] Tyler Trevizo MD Primary Care Provider [phone] Ailyn, Physician Primary Care Provider [phone] Tyler Trevizo MD Primary Care Provider [phone] Jarek Sol DPM Unavailable Encounter Details Date Type Department Care Team (Latest Contact Info) Description 12/08/2018 Orders Only [facility] CLINCONV ProviderLilly MD [address] [place] [address] Social History Tobacco Use Types Packs/Day Years Used Date Smoking Tobacco: Never Assessed Comments Unknown Sex and Gender Information Value Date Recorded Sex Assigned at Not on file Legal Sex Female 11:55 AM MECHANICAL SERVICE REPRESENTATIVE Gender Identity Not on file Sexual Orientation Not on file documented as of this encounter Plan of Treatment Not on file documented as of this encounter Procedures Procedure Name Priority Date/Time Associated Diagnosis Comments PROCEDURE - RESULT 12/08/2018 12 :00 AM MECHANICAL SERVICE REPRESENTATIVE documented in this encounter Results * PROCEDURE - RESULT (12/08/2018 12:00 AM MECHANICAL SERVICE REPRESENTATIVE) Narrative 12/08/2018 12:00 AM MECHANICAL SERVICE REPRESENTATIVE Ordered by an unspecified provider. us Historical Provider Final Res ult documented in this encounter Visit Diagnoses Not on filedocumented in this encounter Additional Health Concerns Infection Onset Date Last Indicated Resolved Time COVID: Suspected 07/25/2023 07/25/2023 07/25/2023 3:34 PM CDT COVID19 Comment:Airborne + Contact precautions. Gown, Gloves, N95, eye protection or goggles. Precautions 08/05/23. Contact Interventional Physician if patient worsens. LISA Denny 08/02/23 07/25/2023 07/25/2023 08/05/2023 3:06 AM C DT MRSA Comment:Contact Precautions (gown and gloves) LISA Denny 08/02/23 07/26/2023 07/26/2023 01/22/2024 3:05 AM C DT COVID: Recovered Comment:Added based on recent COVID infection. 08/05/2023 08/05/2023 11/03/2023 3:[address] documented as of this encounter Care Teams Brand Ambassador Promotional Model Relationship Specialty Start Date End Date Ailyn Physician PCP - General 12/01/18 01/10/19 Tyler Trevizo MD [address] [address] PCP - General Emergency Medicine 02/22/19 08/27/19 Tyler Trevizo MD [address] [address] PCP - General 01/11/19 02/21/19 Ailyn Physician PCP - General 01/02/20 02/07/20 Tyler Trevizo MD [address] [address] PCP - General Emergency Medicine 02/08/20 Christiano James MD [address] [facility] [address] [address] Adult Remedial Education Instructor Cardiology 02/22/19 Jarek Sol DPM [address] [place] [address] Podiatry 02/14/23 documented as of this encounter
--- OUTSIDE RECORDS SUMMARY | 2025-04-24 13:54 | XMS_ITS | Encounter Summary ---
Author Organization [facility] Facility Care Team Providers Care Offal Separator Name Role Phone No, Physician Primary Care Provider Tyler Trevizo MD Primary Care Provider [phone] Christiano James MD Unavailable [phone] Tyler Trevizo MD Primary Care Provider [phone] Ailyn, Physician Primary Care Provider [phone] Tyler Trevizo MD Primary Care Provider [phone] Jarek Sol DPM Unavailable [phone] Encounter Details Date Type Department Care Team (Latest Contact Info) Description 02/13/2015 Orders Only [facility] CLINCONV ProviderLilly MD [address] [place] [address] Social History Tobacco Use Types Packs/Day Years Used Date Smoking Tobacco: Never Assessed Comments Unknown Sex and Gender Information Value Date Recorded Sex Assigned at Not on file Legal Sex Female 11:55 AM INSTRUCTOR APPAREL MANUFACTURE Gender Identity Not on file Sexual Orientation Not on file documented as of this encounter Plan of Treatment Not on file documented as of this encounter Procedures Procedure Name Priority Date/Time Associated Diagnosis Comments CARDIOLOGY REPORT 01/14/2017 12: 00 AM INSTRUCTOR APPAREL MANUFACTURE documented in this encounter Results * CARDIOLOGY REPORT (01/14/2017 12:00 AM INSTRUCTOR APPAREL MANUFACTURE) Anatomical Region Laterality Modality Other Narrative 01/14/2017 12:00 AM INSTRUCTOR APPAREL MANUFACTURE Ordered by an unspecified provider. us Historical Provider [facility] EMILY LEWIS Final Result documented in this encounter Visit Diagnoses Not on filedocumented in this encounter Additional Health Concerns Infection Onset Date Last Indicated Resolved Time COVID: Suspected 07/25/2023 07/25/2023 07/25/2023 3:34 PM CDT COVID19 Comment:Airborne + Contact precautions. Gown, Gloves, N95, eye protection or goggles. Precautions 08/05/23. Contact Scrap Worker if patient worsens. LISA Denny 08/02/23 07/25/2023 07/25/2023 08/05/2023 3:06 AM C DT MRSA Comment:Contact Precautions (gown and gloves) LISA Denny 08/02/23 07/26/2023 07/26/2023 01/22/2024 3:05 AM C DT COVID: Recovered Comment:Added based on recent COVID infection. 08/05/2023 08/05/2023 11/03/2023 3:[address] documented as of this encounter Care Teams Offal Separator Relationship Specialty Start Date End Date Ailyn Physician PCP - General 12/01/18 01/10/19 Tyler Trevizo MD [address] [address] PCP - General Emergency Medicine 02/22/19 08/27/19 Tyler Trevizo MD [address] [address] PCP - General 01/11/19 02/21/19 Ailyn Physician PCP - General 01/02/20 02/07/20 Tyler Trevizo MD [address] [address] PCP - General Emergency Medicine 02/08/20 Christiano James MD [address] [facility] [place] [address] Glue Maker Cardiology 02/22/19 Jarek Sol DPM [address] [facility] [place] [address] Podiatry 02/14/23 documented as of this encounter
--- OUTSIDE RECORDS SUMMARY | 2025-04-24 13:55 | XMS_ITS | CONTINUITY OF CARE DOCUMENT ---
Author Name stevo stevo Address Unknown Organization [facility] Address [address] [facility] [address] [place] [address] Phone [phone] Care Team Providers Care Product Development Manager Name Role Phone Cristóbal Quinones MD Unavailable [phone] Cristóbal Quinones MD Unavailable YARY MATTHEWS MD Unavailable [phone] PROBLEMS Condition Status Date Provider Notes Cardiology examination active Cristóbal Quinones MD DVT active Cristóbal Quinones MD VENOUS INSUFFICIENCY active Cristóbal Quinones MD HYPERTENSION active Cristóbal Quinones MD ENCOUNTERS Date Type Provider Location Encounter Diag nosis - In-person encounter Office Visit Cristóbal Quinones MD [place] [facility] Cardiology examinationDVTVENOUS INSUFFICIENCYHYPERTENSION VITAL SIGNS Date [...] Payer name Policy type / Coverage type [place] red green party ID HUMANA GOLD PLUS O HMO [id number] [facility] Medicaid 1 [id number] ADVANCE DIRECTIVES Name Date DISCUSSED - NO DECISION MADE TREATMENT PLAN Date Name Performer [id number],C,on compressio n Cristbóal Quinones MD [id number],C,w ill put her on eliquis 5 mg [...]
--- NOTE | 2025-04-24 18:50 | P.HP_ITS ---
H&P: HPI History of Present Illness Date/Time: 04/24/25 18:50 Chief Complaint: End-of-life care Narrative: Mrs. Mcgarry is a 69-year-old female left AKA amputee who was living at home alone. She had stage 5 chronic kidney disease had been on dialysis but refused further dialysis. She had been admitted in the past with cellulitis. She was admitted April 19 with cellulitis of the right leg and associated sepsis. In spite of appropriate antibiotic therapy she deteriorated and required transfer to ICU for fluid resuscitation and pressors. She grew methicillin sensitive Staph out of her blood. After pressors were weaned she again became hypotensive. Pressors were restarted. Power of client reporting associate opted for comfort care only and for weaning pressors due to her chronic and deteriorating poor functional status along with deteriorating mental status and hospital with failure to improve with appropriate therapy. She was admitted inpatient hospice service to manage symptoms after discontinuation of pressors with sepsis along with acute kidney injury and into stage renal disease. Review of Systems Review of Systems: ROS unobtainable: Yes unobtainable due to medical condition PMF Past Medical History Medical History Chronic kidney disease, stage 5 Chronic anemia Hypertension Depression with anxiety Arthritis Anxiety Asthma Lymphedema of right lower extremity Surgical History Surgical History History of tubal ligation History of bilateral carpal tunnel release History of bilateral cataract extraction History of left above knee amputation History of bilateral knee replacement Left 2013 Right 2014. Family History Family History Mother Cancer Father Cancer Social History Social History (Updated 04/24/25 @ 18:51 by Jakob Jaramillo MD) Social History: Surrogate medical decision maker: Trey Pickett, son. Code status: DNR Smoking status: Never smoker Second hand tobacco smoke exposure: No Alcohol intake: never Substance use: never Substance use type: does not use Do You Feel Safe in your Home?: Yes Lack of Transportation: No Lack of Food: Never True Current Housing: I Have Housing Concerned About Future Housing: No Difficulty Paying Gas/Electric Bills: No Difficulty Paying for Meds: No Currently Unemployed: No Education: High School Diploma/GED Difficulty w/ Childcare or Family Care: No Additional living arrangements comments: . Lives with son in [place]. Spiritual care concerns: No Meds Home Medications and Allergies Home Medications ?Medication ?Instructions ?Recorded ?Confirmed ?Type acetaminophen 325 mg tablet (Mapap 650 mg (2 x 325 mg) PO Q4H PRN 07/02/23 04/24/25 Rx (acetaminophen)) Mild Pain (1-3) Or Fever #0 tabs silver 200 mcg/gram topical gel 1 applic topical DAILY 30 days #0 07/02/23 04/24/25 Rx (Silver-Sept) grams linezolid 600 mg tablet 600 mg PO Q12H 11 days #22 tabs 04/12/25 04/24/25 Rx losartan 50 mg tablet 50 mg PO DAILY #90 tabs 04/12/25 04/24/25 Rx sodium bicarbonate 650 mg tablet 1,300 mg (2 x 650 mg) PO BID 30 04/12/25 04/24/25 Rx days #120 tabs Allergies Allergy/AdvReac Type Severity Reaction Status Date / Time No Known Allergies Allergy Verified 04/04/25 11:37 Vital Signs Vital Signs - 24 hr 04/24/25 13:15 04/24/25 13:29 Pulse Rate 64 Respiratory Rate 16 Oxygen Delivery Room Air Exam Narrative: HEENT: Pupils meiotic, sclerae nonicteric, pharyngeal mucosa pink and intact NECK: No JVD CHEST: Clear to auscultation. Normal effort HEART: NL S1/S2, regular, no murmur ABDOMEN: BS+, soft, nontender, no mass, no bruits EXTREMITIES: Left AKA intact, Right knee with severe flexion contracture with multiple bandaged wounds RLE NEUROLOGIC: CN intact and symmetric to inspection MUSCULOSKELETAL: Left AKA, severe flexion contracture right knee PSYCH: Drowsy but arouses easily, oriented to person only, follow simple commands Assessment and Plan Assessment and plan (1) Hospice care: Code(s): Z51.5 - Encounter for palliative care Status: Acute Assessment and Plan: * Meets inpatient hospice criteria due to requiring continuous IV hydromorphone at 0.25 milligram/hour for control of symptoms after withdrawal of pressors in the setting of encephalopathy, end-stage renal disease, and sepsis * PRN palliative regimen ordered (2) Septic shock: Code(s): A41.9 - Sepsis, unspecified organism; R65.21 - Severe sepsis with septic shock Status: Acute (3) MSSA bacteremia: Code(s): R78.81 - Bacteremia; B95.61 - Methicillin susceptible Staphylococcus aureus infection as the cause of diseases classified elsewhere Status: Acute (4) Cellulitis: Qualifiers: Laterality: unspecified laterality Site of cellulitis: extremity Site of cellulitis of extremity: lower extremity Qualified Code(s): L03.119 - Cellulitis of unspecified part of limb Code(s): L03.90 - Cellulitis, unspecified Status: Acute (5) AMS (altered mental status): Code(s): R41.82 - Altered mental status, unspecified Status: Acute (6) Chronic kidney disease, stage 5: Code(s): N18.5 - Chronic kidney disease, stage 5 Status: Chronic (7) Acute kidney injury: Code(s): N17.9 - Acute kidney failure, unspecified Status: Acute
[2025-04-24 21:28] VITALS: BP 84/41; PULSE 62; RESP 12; TEMP 36.6; O2SAT 95
[2025-04-25 07:58] VITALS: BP 93/37; PULSE 73; RESP 16; TEMP 36.8; O2SAT 93
[2025-04-25 09:29] VITALS: O2SAT 94
[2025-04-25] MEDS: HYDROmorphone HCL/PF (*CRX) 50 MG in SODIUM CHLORIDE 0.9% IV 95 ML IV CONT (13:11)
[2025-04-25] MEDS: HYDROmorphone HCL INJ (*CRX) 2 MG/ML VIAL 0.5 MG IV PUSH (13:13)
[2025-04-25] MEDS: diazePAM INJ (*CRX) 10 MG/2 ML SYRINGE 5 MG IV PUSH (13:14)
--- NOTE | 2025-04-25 18:48 | P.PNIM_ITS ---
Progress Note: A&P Assessment and Plan (1) Hospice care: Code(s): Z51.5 - Encounter for palliative care Status: Acute Assessment and Plan: * Meets inpatient hospice criteria due to requiring continuous IV hydromorphone at 0.25 milligram/hour for control of symptoms after withdrawal of pressors in the setting of encephalopathy, end-stage renal disease, and sepsis * PRN palliative regimen ordered * 04/25/2025 Required 2 p.r.n. doses of medication, now on responsive, hypotensive, continues to meet inpatient hospice criteria (2) Septic shock: Code(s): A41.9 - Sepsis, unspecified organism; R65.21 - Severe sepsis with septic shock Status: Acute (3) MSSA bacteremia: Code(s): R78.81 - Bacteremia; B95.61 - Methicillin susceptible Staphylococcus aureus infection as the cause of diseases classified elsewhere Status: Acute (4) Cellulitis: Qualifiers: Laterality: unspecified laterality Site of cellulitis: extremity Site of cellulitis of extremity: lower extremity Qualified Code(s): L03.119 - Cellulitis of unspecified part of limb Code(s): L03.90 - Cellulitis, unspecified Status: Acute (5) AMS (altered mental status): Code(s): R41.82 - Altered mental status, unspecified Status: Acute (6) Chronic kidney disease, stage 5: Code(s): N18.5 - Chronic kidney disease, stage 5 Status: Chronic (7) Acute kidney injury: Code(s): N17.9 - Acute kidney failure, unspecified Status: Acute Subjective Date/time seen: 04/25/25 18:48 Interval history: Required 2 p.r.n. doses for restlessness and anxiety today. No longer interacting. No p.o. int Review of Systems Review of Systems: ROS unobtainable: Yes unobtainable due to medical condition Exam Narrative: HEENT: Pupils meiotic, sclerae nonicteric, pharyngeal mucosa pink and intact NECK: No JVD CHEST: Clear to auscultation. Normal effort HEART: NL S1/S2, regular, no murmur ABDOMEN: BS+, soft, nontender, no mass, no bruits EXTREMITIES: Left AKA intact, Right knee with severe flexion contracture with multiple bandaged wounds RLE NEUROLOGIC: CN intact and symmetric to inspection MUSCULOSKELETAL: Left AKA, severe flexion contracture right knee PSYCH: Unresponsive to verbal or tactile stimuli Objective Data Vital Signs Vital Signs: Vital Signs - 24 hr 04/24/25 20:00 04/24/25 21:28 04/25/25 07:58 Temperature 97.8 F 98.2 F Pulse Rate 62 73 Respiratory Rate 12 16 Blood Pressure 84/41 L 93/37 L Pulse Oximetry 95 93 Oxygen Delivery Room Air 04/25/25 08:00 04/25/25 09:29 Temperature Pulse Rate Respiratory Rate Blood Pressure Pulse Oximetry 94 Oxygen Delivery Room Air Room Air Intake/Output Intake/Output: Intake & Output 04/22/25 04/23/25 04/24/25 04/25/25 23:59 23:59 23:59 23:59 Intake Total 120 12 Balance 120 12 Meds/Results Medications: Active Medications Generic Name Dose Route Start Last Admin Trade Name Jacobq PRN Reason Stop Dose Admin Acetaminophen 650 mg 04/25/25 13:35 Acetaminophen 650 Mg Suppository RECTAL Q4H PRN Fever Artificial Tears 1 - 2 drop 04/24/25 12:13 Artificial Tears Ophth Soln 15 Ml Bottle EACH EYE Q12H PRN Dry Eye(s) Bisacodyl 10 mg 04/24/25 12:03 Bisacodyl 10 Mg Suppository RECTAL DAILY PRN Constipation Diazepam 5 mg 04/24/25 11:54 04/25/25 13:14 Diazepam Inj (*Crx) 10 Mg/2 Ml Syringe IV PUSH 5 mg Q4H PRN Administration FOR RESTLESSNESS Glycopyrrolate 0.1 mg 04/24/25 11:55 Glycopyrrolate Inj (*Sp) 0.2 Mg/Ml Vial IV PUSH Q4H PRN FOR SECRETIONS Hydromorphone HCl 0.5 mg 04/24/25 12:12 04/25/25 13:13 Hydromorphone Hcl Inj (*Crx) 2 Mg/Ml Vial IV PUSH 0.5 mg Q1H PRN Administration Pain Hydromorphone HCl 50 mg/ 100 mls @ 0.5 mls/hr 04/24/25 12:10 04/25/25 13:11 Sodium Chloride IV CONT 0.25 mg/hr .Q24H LISANDRA 0.5 mls/hr Administration 0.25 MG/HR Prochlorperazine Edisylate 10 mg 04/24/25 12:14 Prochlorperazine Edisylate 10 Mg/2 Ml Vial IV PUSH Q6H PRN Nausea And Vomiting
[2025-04-25 20:00] VITALS: BP 84/40; PULSE 97; RESP 20; TEMP 37.7; O2SAT 87
--- NOTE | 2025-04-26 12:17 | P.PNIM_ITS ---
Progress Note: A&P Assessment and Plan (1) Hospice care: Code(s): Z51.5 - Encounter for palliative care Status: Acute Assessment and Plan: * Meets inpatient hospice criteria due to requiring continuous IV hydromorphone at 0.25 milligram/hour for control of symptoms after withdrawal of pressors in the setting of encephalopathy, end-stage renal disease, and sepsis * PRN palliative regimen ordered * 04/25/2025 Required 2 p.r.n. doses of medication, now on responsive, hypotensive, continues to meet inpatient hospice criteria * 04/26/2025 Remains unresponsive and hypotensive and now febrile with continued decline and requirement for continuous IV hydromorphone (2) Septic shock: Code(s): A41.9 - Sepsis, unspecified organism; R65.21 - Severe sepsis with septic shock Status: Acute (3) MSSA bacteremia: Code(s): R78.81 - Bacteremia; B95.61 - Methicillin susceptible Staphylococcus aureus infection as the cause of diseases classified elsewhere Status: Acute (4) Cellulitis: Qualifiers: Laterality: unspecified laterality Site of cellulitis: extremity Site of cellulitis of extremity: lower extremity Qualified Code(s): L03.119 - Cellulitis of unspecified part of limb Code(s): L03.90 - Cellulitis, unspecified Status: Acute (5) AMS (altered mental status): Code(s): R41.82 - Altered mental status, unspecified Status: Acute (6) Chronic kidney disease, stage 5: Code(s): N18.5 - Chronic kidney disease, stage 5 Status: Chronic (7) Acute kidney injury: Code(s): N17.9 - Acute kidney failure, unspecified Status: Acute Subjective Date/time seen: 04/26/25 12:17 Interval history: No longer interacting. No p.o. intake. Febrile. Hypotensive. Review of Systems Review of Systems: ROS unobtainable: Yes unobtainable due to medical condition Exam Narrative: HEENT: Pupils meiotic, sclerae nonicteric, pharyngeal mucosa pink and intact NECK: No JVD CHEST: Clear to auscultation. Normal effort HEART: NL S1/S2, regular, no murmur ABDOMEN: BS+, soft, nontender, no mass, no bruits EXTREMITIES: Left AKA intact, Right knee with severe flexion contracture with multiple bandaged wounds RLE NEUROLOGIC: CN intact and symmetric to inspection MUSCULOSKELETAL: Left AKA, severe flexion contracture right knee PSYCH: Unresponsive to verbal or tactile stimuli Objective Data Vital Signs Vital Signs: Vital Signs - 24 hr 04/25/25 20:00 04/25/25 20:00 Temperature 99.9 F H Pulse Rate 97 Respiratory Rate 20 Blood Pressure 84/40 L Pulse Oximetry 87 L Oxygen Delivery Room Air Intake/Output Intake/Output: Intake & Output 04/23/25 04/24/25 04/25/25 04/26/25 23:59 23:59 23:59 23:59 Intake Total 120 12 Balance 120 12 Meds/Results Medications: Active Medications Generic Name Dose Route Start Last Admin Trade Name Freq PRN Reason Stop Dose Admin Acetaminophen 650 mg 04/25/25 13:35 Acetaminophen 650 Mg Suppository RECTAL Q4H PRN Fever Artificial Tears 1 - 2 drop 04/24/25 12:13 Artificial Tears Ophth Soln 15 Ml Bottle EACH EYE Q12H PRN Dry Eye(s) Bisacodyl 10 mg 04/24/25 12:03 Bisacodyl 10 Mg Suppository RECTAL DAILY PRN Constipation Diazepam 5 mg 04/24/25 11:54 04/25/25 13:14 Diazepam Inj (*Crx) 10 Mg/2 Ml Syringe IV PUSH 5 mg Q4H PRN Administration FOR RESTLESSNESS Glycopyrrolate 0.1 mg 04/24/25 11:55 Glycopyrrolate Inj (*Sp) 0.2 Mg/Ml Vial IV PUSH Q4H PRN FOR SECRETIONS Hydromorphone HCl 0.5 mg 04/24/25 12:12 04/25/25 13:13 Hydromorphone Hcl Inj (*Crx) 2 Mg/Ml Vial IV PUSH 0.5 mg Q1H PRN Administration Pain Hydromorphone HCl 50 mg/ 100 mls @ 0.5 mls/hr 04/24/25 12:10 04/25/25 13:11 Sodium Chloride IV CONT 0.25 mg/hr .Q24H LISANDRA 0.5 mls/hr Administration 0.25 MG/HR Prochlorperazine Edisylate 10 mg 04/24/25 12:14 Prochlorperazine Edisylate 10 Mg/2 Ml Vial IV PUSH Q6H PRN Nausea And Vomiting
[2025-04-26] MEDS: HYDROmorphone HCL/PF (*CRX) 50 MG in SODIUM CHLORIDE 0.9% IV 95 ML IV CONT (12:36)
[2025-04-26 15:00] VITALS: BP 88/47; PULSE 102; RESP 24; TEMP 37.8; O2SAT 88
[2025-04-26 20:00] VITALS: BP 78/42; PULSE 88; RESP 18; TEMP 37.4; O2SAT 90
[2025-04-27 08:00] VITALS: BP 87/45; PULSE 82; RESP 28; TEMP 38.1; O2SAT 91
[2025-04-27 17:13] VITALS: PULSE 96; RESP 22
[2025-04-27] MEDS: HYDROmorphone HCL/PF (*CRX) 50 MG in SODIUM CHLORIDE 0.9% IV 95 ML IV CONT (17:13)
[2025-04-27 17:42] VITALS: TEMP 38.1
[2025-04-27] MEDS: ACETAMINOPHEN 650 MG SUPPOSITORY RECTAL (17:42)
[2025-04-27 18:42] VITALS: TEMP 38.6
[2025-04-27 20:00] VITALS: BP 55/27; PULSE 81; RESP 14; TEMP 36.8; O2SAT 98
--- NOTE | 2025-04-27 23:11 | PC.NURSE ---
This RN notified the charge nurse, Teodora of patient demise at [id number]. Both Teodora and this RN verified absence of respirations and absent breath sounds through auscultation.
--- NOTE | 2025-05-02 20:42 | PM.DDS ---
Discharge Summary Date and Time Date of : 04/27/25 Time of : 23:05 Provider Pronounced By: 2 RNs Name of First RN That Pronounced: Teodora Carpenter RN Name of Second RN That Pronounced: Florina Sierra RN Probable Cause of Probable Cause of : Septic shock secondary to MSSA bacteremia secondary to cellulitis Summary Hospital Course: Admitted to inpatient hospice service for symptom management. Medications were titrated to comfort. Mrs. Pickett peacefully. Additional Data Confirmation of as documented by pronouncing clinician: Pupillary Reflex, Palpable Pulses, Response to Stimuli, Heart Tones and Breath Sounds Name of Provider Notified: Jakob Jaramillo Time Provider Notified: 23:20 Provider Requests Autopsy: No Family Requests Autopsy: No Contour Path [employer] Operator Notified: Yes Date [facility] Notified of : 04/27/25 Time [facility] Notified of : 23:23
== END 2025-04-27 23:05 | disposition expired | DRG 951 ==
LOC: ANHICU 11:48 → ANH2MED 13:18
PROVIDERS: Admitting Provider Internal Medicine; PCP Family Medicine; Visit Provider Internal Medicine
DX: Z51.5 Encounter for palliative care (principal); A41.9 Sepsis, unspecified organism; R65.21 Severe sepsis with septic shock; E43 Unspecified severe protein-calorie malnutrition; L03.115 Cellulitis of right lower limb; N18.5 Chronic kidney disease, stage 5; N17.9 Acute kidney failure, unspecified; I12.0 Hypertensive chronic kidney disease with stage 5 chronic kidney disease or end stage renal disease; G93.40 Encephalopathy, unspecified; L97.919 Non-pressure chronic ulcer of unspecified part of right lower leg with unspecified severity; Z68.1 Body mass index [BMI] 19.9 or less, adult; B95.61 Methicillin susceptible Staphylococcus aureus infection as the cause of diseases classified elsewhere; D64.9 Anemia, unspecified; F41.8 Other specified anxiety disorders; M19.90 Unspecified osteoarthritis, unspecified site; J45.909 Unspecified asthma, uncomplicated; I89.0 Lymphedema, not elsewhere classified; Z89.612 Acquired absence of left leg above knee; Z96.653 Presence of artificial knee joint, bilateral; Z66 Do not resuscitate; E16.2 Hypoglycemia, unspecified
CPT/HCPCS: A9270; J1171; J3360